=== PATIENT | male | born 1940 | race Caucasian/White ===

== ENCOUNTER → 2017-11-04 12:36 | Outpatient (CLI) | payer MEDICARE, SELFPAY ==
[2017-11-04 13:38] LABS: Absolute Lymphocyte Count 1.72 X10^3/ul (0.83-4.51); Absolute Neutrophil Count 4.4 X10^3/uL (2.0-7.7); Basophil# 0.04 X10^3/uL; Basophil% 0.6 % (0-1); Eosinophil# 0.22 X10^3/uL; Eosinophils% 3.1 % (0-5); Hematocrit 43.6 % (40-54); Hemoglobin 14.4 g/dl (13.0-16.5); Lymphocyte # 1.72 X10^3/ul (4.0); Mean Corpuscular Hgb 29.1 pg (27.0-32.0); Mean Corpuscular Volume 88.3 fL (80-94); Monocyte# 0.74 X10^3/uL; Monocyte% 10.3 % (0-10); Neutrophil # 4.43 X10^3/uL (2.7-7.7); Neutrophil % 61.9 % (47-70); Platelet Count 153 K/mm3 (150-450); RBC Distribution Width CV 13.6 % (11.6-14.6); Red Blood Count 4.94 M/mm3 (4.6-6.2); White Blood Count 7.2 K/mm3 (4.4-11.0)
[2017-11-04 13:39] LABS: POSITIVE COUNT NO; POSITIVE DIFFERENTIAL NO; POSITIVE MORPHOLOGY NO
[2017-11-04 13:41] LABS: Protein, Urine (Random) 12.9 mg/dL (<11.9); Protein:Creat Ratio 93 mg/g CRE (0-200)
[2017-11-04 14:02] LABS: Vitamin D,25 Hydroxy 49.5 ng/mL (29.95-100.01)
[2017-11-04 14:04] LABS: Albumin, Serum 4.1 g/dL (3.2-5.0); BUN 25 mg/dL (7-18); BUN/Creat Ratio 17.2 RATIO (10-20); Chloride 108 mmol/L (98-107); Creatinine, Serum 1.45 mg/dL (0.70-1.30); EST Glomerular Filtration Rate 50 mL/min (>60); Est Glom Filt Rate - Afr Amer 61 mL/min (>60); Glucose 88 mg/dL (74-106); Phosphorus 3.1 mg/dL (2.5-4.9); Potassium 4.2 mmol/L (3.5-5.1); Sodium Level 139 mmol/L (136-145)
[2017-11-04 14:09] LABS: PTHIN 69.2 pg/mL (18.4-80.1)
== END ==
PROVIDERS: Family Provider Family Medicine Geriatric Medicine; PCP Family Medicine Geriatric Medicine; Visit Provider Urology
DX: R97.20 Elevated prostate specific antigen [PSA] (principal); N25.81 Secondary hyperparathyroidism of renal origin; N18.3 Chronic kidney disease, stage 3 (moderate)
CPT/HCPCS: 36415; 80069; 82306; 82570; 83970; 84153; 84156; 85025

== ENCOUNTER → 2018-03-29 14:40 | Outpatient (CLI) | payer MEDICARE, SELFPAY ==
[2018-03-29 16:31] LABS: Absolute Lymphocyte Count 1.64 X10^3/ul (0.83-4.51); Basophil# 0.03 X10^3/uL; Basophil% 0.5 % (0-1); Eosinophil# 0.11 X10^3/uL; Eosinophils% 1.7 % (0-5); Hematocrit 45.9 % (40-54); Hemoglobin 14.3 g/dl (13.0-16.5); Lymphocyte # 1.64 X10^3/ul (4.0); Mean Corp Hgb Conc 31.2 g/gl (32-36); Mean Corpuscular Hgb 28.7 pg (27.0-32.0); Mean Corpuscular Volume 92.2 fL (80-94); Mean Platelet Vol. 11.9 fl (6.2-12.0); Monocyte# 0.49 X10^3/uL; Monocyte% 7.8 % (0-10); Neutrophil # 4.03 X10^3/uL (2.7-7.7); Platelet Count 165 K/mm3 (150-450); RBC Distribution Width SD 47.2 fl (35.1-43.9); Red Blood Count 4.98 M/mm3 (4.6-6.2); White Blood Count 6.3 K/mm3 (4.4-11.0)
[2018-03-29 17:00] LABS: ALB/GLOB Ratio 1.1 RATIO (0.9-2.4); AST(SGOT) 14 U/L (15-37); Alanine Aminotransfer ALT/SGPT 22 U/L (16-61); Albumin, Serum 3.8 g/dL (3.2-5.0); Alkaline Phosphatase 89 U/L (45-117); Anion Gap 9 (5-15); BUN 29 mg/dL (7-18); BUN/Creat Ratio 17.7 RATIO (10-20); Calcium,Total 8.8 mg/dL (8.5-10.1); Chloride 109 mmol/L (98-107); Cholesterol 223 mg/dL (200); Creatinine, Serum 1.64 mg/dL (0.70-1.30); EST Glomerular Filtration Rate 43 mL/min (>60); Est Glom Filt Rate - Afr Amer 52 mL/min (>60); Globulin 3.6 g/dL (2.2-4.2); Glucose 110 mg/dL (74-106); High Density Lipoprotein 46 mg/dL; Potassium 4.5 mmol/L (3.5-5.1); Protein, Total 7.4 g/dL (6.4-8.2); Sodium Level 145 mmol/L (136-145); Thyroid Stim Hormone (TSH) 3.11 uIU/mL (0.358-3.74); Triglycerides 129 mg/dL; Very Low Density Lipoprotein 26 mg/dL (5-40)
[2018-03-29 17:10] LABS: POSITIVE COUNT NO; POSITIVE DIFFERENTIAL NO; POSITIVE MORPHOLOGY NO
== END ==
PROVIDERS: Family Provider Family Medicine Geriatric Medicine; PCP Family Medicine Geriatric Medicine; Visit Provider Family Medicine Geriatric Medicine
DX: E55.9 Vitamin D deficiency, unspecified (principal); I10 Essential (primary) hypertension; E78.41 Elevated Lipoprotein(a)
CPT/HCPCS: 36415; 80053; 80061; 82306; 84443; 85025

== ENCOUNTER → 2018-03-31 09:39 | Outpatient (CLI) | payer MEDICARE, SELFPAY ==
--- NOTE | 2018-03-31 09:43 | US_ITS ---
PROCEDURES: ULTRASOUND AORTA REASON FOR EXAM: Male, 77 years old. Abdominal aortic aneurysm TECHNIQUE: Ultrasound evaluation of the aorta was performed with real-time and static ochoa-scale imaging. COMPARISON: None. FINDINGS: There is atherosclerotic plaque formation of the abdominal aorta. Aorta measures: Proximal 2.3 cm. Middle 2.4 cm. Distal 1.6 cm. Aorta measure transversely: Proximal 2.3 cm. Middle 2.5 cm. Distal 1.5 cm. Right iliac artery measures: 1.3 cm. Right iliac artery measure transversely: 1.0 cm. Left iliac artery measures: 1.0 cm. Left iliac artery measure transversely: 1.5 cm. Stable mild dilation of the distal portion of the abdominal aorta.. Incidentally noted are liver cysts. US/Aorta IMPRESSION: Stable interval exam Electronically Signed: Austin Roberson DO at 11:15 EDT Tel , Service support ,
== END ==
PROVIDERS: Family Provider Family Medicine Geriatric Medicine; PCP Family Medicine Geriatric Medicine; Referring Provider Family Medicine Geriatric Medicine; Visit Provider Family Medicine Geriatric Medicine
DX: I71.4 Abdominal aortic aneurysm, without rupture (principal)
CPT/HCPCS: 76775

== ENCOUNTER → 2018-10-14 11:20 | Outpatient (CLI) | payer MEDICARE, SELFPAY ==
[2018-10-14 11:50] LABS: Absolute Neutrophil Count 4.4 X10^3/uL (2.0-7.7); Basophil# 0.01 X10^3/uL; Basophil% 0.2 % (0-1); Eosinophil# 0.04 X10^3/uL; Eosinophils% 0.6 % (0-5); Hematocrit 42.7 % (40-54); Hemoglobin 14.3 g/dl (13.0-16.5); Lymphocyte % 24.1 % (19-41); Mean Corp Hgb Conc 33.5 g/gl (32-36); Mean Corpuscular Hgb 29.8 pg (27.0-32.0); Mean Platelet Vol. 11.2 fl (6.2-12.0); Monocyte# 0.57 X10^3/uL; Monocyte% 8.6 % (0-10); Neutrophil # 4.42 X10^3/uL (2.7-7.7); Neutrophil % 66.3 % (47-70); POSITIVE COUNT NO; POSITIVE DIFFERENTIAL NO; POSITIVE MORPHOLOGY NO; Platelet Count 153 K/mm3 (150-450); RBC Distribution Width CV 13.5 % (11.6-14.6); RBC Distribution Width SD 43.7 fl (35.1-43.9); White Blood Count 6.7 K/mm3 (4.4-11.0)
[2018-10-14 11:51] LABS: Protein, Urine (Random) 11.1 mg/dL (<11.9); Protein:Creat Ratio 87 mg/g CRE (0-200)
[2018-10-14 12:02] LABS: Albumin, Serum 4.1 g/dL (3.2-5.0); BUN 28 mg/dL (7-18); Calcium,Total 8.7 mg/dL (8.5-10.1); Chloride 107 mmol/L (98-107); Creatinine, Serum 1.47 mg/dL (0.70-1.30); EST Glomerular Filtration Rate 49 mL/min (>60); Est Glom Filt Rate - Afr Amer 59 mL/min (>60); Glucose 92 mg/dL (74-106); Phosphorus 3.4 mg/dL (2.5-4.9); Potassium 4.8 mmol/L (3.5-5.1); Sodium Level 141 mmol/L (136-145)
[2018-10-14 14:15] LABS: Vitamin D,25 Hydroxy 35.9 ng/mL (29.95-100.01)
[2018-10-14 14:19] LABS: PTHIN 81.4 pg/mL (18.4-80.1)
== END ==
PROVIDERS: Family Provider Family Medicine Geriatric Medicine; PCP Family Medicine Geriatric Medicine; Referring Provider Internal Medicine Nephrology; Visit Provider Internal Medicine Nephrology
DX: N18.3 Chronic kidney disease, stage 3 (moderate) (principal); N25.81 Secondary hyperparathyroidism of renal origin; E55.9 Vitamin D deficiency, unspecified
CPT/HCPCS: 36415; 80069; 82306; 82570; 83970; 84156; 85025

== ENCOUNTER → 2018-12-07 13:50 | Outpatient (CLI) | payer MEDICARE, SELFPAY | PROVIDERS: Family Provider Family Medicine Geriatric Medicine; PCP Family Medicine Geriatric Medicine; Referring Provider Urology; Visit Provider Urology | DX: R97.20 Elevated prostate specific antigen [PSA] (principal) | CPT/HCPCS: 36415; 84153 ==

== ENCOUNTER → 2019-03-30 09:02 | Outpatient (CLI) | payer MEDICARE, SELFPAY ==
[2019-03-30 12:42] LABS: Absolute Lymphocyte Count 1.69 X10^3/uL (0.83-4.51); Absolute Neutrophil Count 3.3 X10^3/uL (2.0-7.7); Basophil# 0.03 X10^3/uL; Basophil% 0.5 % (0-1); Eosinophil# 0.07 X10^3/uL; Eosinophils% 1.2 % (0-5); Hematocrit 44.8 % (40-54); Hemoglobin 14.1 g/dL (13.0-16.5); Lymphocyte # 1.69 X10^3/ul (4.0); Lymphocyte % 29.9 % (19-41); Mean Corp Hgb Conc 31.5 g/dL (32-36); Mean Corpuscular Hgb 29.1 pg (27.0-32.0); Mean Corpuscular Volume 92.4 fL (80-94); Mean Platelet Vol. 11.7 fl (6.2-12.0); Monocyte# 0.59 X10^3/uL; Monocyte% 10.4 % (0-10); NRBC Flagged by Analyzer 0 % (0-5); Neutrophil # 3.25 X10^3/uL (2.7-7.7); Neutrophil % 57.6 % (47-70); Platelet Count 154 K/mm3 (150-450); RBC Distribution Width CV 13.5 % (11.6-14.6); RBC Distribution Width SD 46.1 fl (35.1-43.9); Red Blood Count 4.85 M/mm3 (4.6-6.2); White Blood Count 5.7 K/mm3 (4.4-11.0)
[2019-03-30 13:05] LABS: Vitamin D,25 Hydroxy 35.3 ng/mL (29.95-100.01)
[2019-03-30 13:13] LABS: ALB/GLOB Ratio 1.2 RATIO (0.9-2.4); AST(SGOT) 14 U/L (15-37); Alanine Aminotransfer ALT/SGPT 24 U/L (16-61); Alkaline Phosphatase 92 U/L (45-117); Anion Gap 8 (5-15); BUN 25 mg/dL (7-18); Calcium,Total 8.7 mg/dL (8.5-10.1); Chloride 108 mmol/L (98-107); Cholesterol 215 mg/dL (200); Creatinine, Serum 1.39 mg/dL (0.70-1.30); EST Glomerular Filtration Rate 52 mL/min (>60); Est Glom Filt Rate - Afr Amer 63 mL/min (>60); Globulin 3.3 g/dL (2.2-4.2); Glucose 95 mg/dL (74-106); High Density Lipoprotein 46 mg/dL; Potassium 4.4 mmol/L (3.5-5.1); Protein, Total 7.3 g/dL (6.4-8.2); Sodium Level 143 mmol/L (136-145); Thyroid Stim Hormone (TSH) 3.29 uIU/mL (0.358-3.74); Triglycerides 154 mg/dL; Very Low Density Lipoprotein 31 mg/dL (5-40)
== END ==
PROVIDERS: Family Provider Family Medicine Geriatric Medicine; PCP Family Medicine Geriatric Medicine; Visit Provider Family Medicine Geriatric Medicine
DX: E78.5 Hyperlipidemia, unspecified (principal); E55.9 Vitamin D deficiency, unspecified; I10 Essential (primary) hypertension
CPT/HCPCS: 36415; 80053; 80061; 82306; 84443; 85025

== ENCOUNTER → 2019-04-11 09:18 | Outpatient (CLI) | payer MEDICARE, SELFPAY ==
--- NOTE | 2019-04-11 09:20 | US_ITS ---
PROCEDURES: ULTRASOUND AORTA REASON FOR EXAM: Male, 78 years old. AAA TECHNIQUE: Ultrasound evaluation of the aorta was performed with real-time and static ochoa-scale imaging. COMPARISON: March 31, 2018. FINDINGS: There is no elongation or tortuosity of the abdominal aorta. Aorta measures: Proximal 2.2 cm. Middle 2.1 cm. Distal 1.5 cm. Aorta measure transversely: Proximal 2.3 cm. Middle 2.4 cm. Distal 1.9 cm. Right iliac artery measures: 1.1 cm. Right iliac artery measure transversely: 1.1 cm. Left iliac artery measures: 1.1 cm. Left iliac artery measure transversely: 1.1 cm. There is mild infrarenal focal aneurysm measuring 2.5 cm in maximum diameter, relatively stable since the previous study. Hepatic cysts up to 13 cm. US/Aorta IMPRESSION: Mild infrarenal aneurysm of the abdominal aorta. Hepatic cysts. Electronically Signed: Nikhil Cerda DO at 21:43 EDT Tel [phone], Service support ,
== END ==
PROVIDERS: Family Provider Family Medicine Geriatric Medicine; PCP Family Medicine Geriatric Medicine; Referring Provider Family Medicine Geriatric Medicine; Visit Provider Family Medicine Geriatric Medicine
DX: I71.4 Abdominal aortic aneurysm, without rupture (principal)
CPT/HCPCS: 76775

== ENCOUNTER → 2019-12-05 08:52 | Outpatient (CLI) | payer MEDICARE, SELFPAY ==
[2019-12-05 10:15] LABS: Absolute Lymphocyte Count 1.98 X10^3/uL (0.83-4.51); Absolute Neutrophil Count 3.9 X10^3/uL (2.0-7.7); Basophil# 0.04 X10^3/uL; Basophil% 0.6 % (0-1); Eosinophil# 0.07 X10^3/uL; Eosinophils% 1.1 % (0-5); Hematocrit 45.2 % (40-54); Hemoglobin 14.4 g/dL (13.0-16.5); Lymphocyte # 1.98 X10^3/ul (4.0); Lymphocyte % 29.9 % (19-41); Mean Corp Hgb Conc 31.9 g/dL (32-36); Mean Corpuscular Hgb 29.6 pg (27.0-32.0); Mean Platelet Vol. 11.7 fl (6.2-12.0); Monocyte# 0.61 X10^3/uL; Monocyte% 9.2 % (0-10); NRBC Flagged by Analyzer 0 % (0-5); Neutrophil # 3.91 X10^3/uL (2.7-7.7); Platelet Count 158 K/mm3 (150-450); RBC Distribution Width CV 13.4 % (11.6-14.6); RBC Distribution Width SD 45.4 fl (35.1-43.9); Red Blood Count 4.86 M/mm3 (4.6-6.2); White Blood Count 6.6 K/mm3 (4.4-11.0)
[2019-12-05 10:31] LABS: Protein, Urine (Random) 15.1 mg/dL (<11.9); Protein:Creat Ratio 81 mg/g CRE (0-200)
[2019-12-05 10:55] LABS: Albumin, Serum 3.9 g/dL (3.2-5.0); BUN 31 mg/dL (7-18); BUN/Creat Ratio 22.1 RATIO (10-20); Chloride 112 mmol/L (98-107); EST Glomerular Filtration Rate 52 mL/min (>60); Est Glom Filt Rate - Afr Amer 63 mL/min (>60); Glucose 102 mg/dL (74-106); Phosphorus 3.1 mg/dL (2.5-4.9); Potassium 4.2 mmol/L (3.5-5.1); Sodium Level 143 mmol/L (136-145)
[2019-12-05 13:09] LABS: PTHIN 53.4 pg/mL (18.4-80.1)
[2019-12-05 13:10] LABS: Vitamin D,25 Hydroxy 48.3 ng/mL
== END ==
PROVIDERS: PCP Family Medicine Geriatric Medicine; Referring Provider Urology; Visit Provider Urology
DX: N18.3 Chronic kidney disease, stage 3 (moderate) (principal); N25.81 Secondary hyperparathyroidism of renal origin; E55.9 Vitamin D deficiency, unspecified; Z13.0 Encounter for screening for diseases of the blood and blood-forming organs and certain disorders involving the immune mechanism; R97.20 Elevated prostate specific antigen [PSA]
CPT/HCPCS: 36415; 80069; 82306; 82570; 83970; 84153; 84156; 85025

== ENCOUNTER → 2019-12-29 14:47 | Outpatient (CLI) | payer MEDICARE, SELFPAY ==
--- NOTE | 2019-12-29 14:50 | VDLE_ITS ---
Reason For Study: edema Procedure LEFT Exam performed in department. GSV is normal. The exam was diagnostic. CFV is compressible, spontaneous, phasic, A preliminary report was called and/or faxed competent, and demonstrates normal to Dr. Sim. augmentation. FV is compressible, spontaneous, phasic, competent and demonstrates normal augmentation. POP V is compressible, spontaneous, phasic, competent and demonstrates normal augmentation. T/P Trunk is compressible. PTV is compressible. LT PerV is compressible. Hypoechoic area behind the knee measuring .69 x 2.64 x 3.89 cm. Area is nonvascular. Interpretation Summary Deep veins of the left lower extremity are patent and compressible segmentally. There is no evidence of left lower extremity deep vein thrombosis. Valvular competence appears intact within the proximal deep venous system on the left . The left great saphenous vein appears patent and compressible segmentally. A non-vascular, hypoechoic structure is noted in the left popliteal space, measuring 0.69 cm x 2.64 cm x 3.89 cm. This probably represents a popliteal cyst. Clinical correlation is advised. Ordering Physician: Ruben Sim Performed By: Julian Del Real RVT and Student
--- NOTE | 2019-12-29 15:20 | RAD_ITS ---
STUDY: X-RAY CHEST REASON FOR EXAM: Male, 79 years old. chest pain for a couple months. sob upon exertion. no htn and no hx of smoking. TECHNIQUE: PA and lateral views of the chest. COMPARISON: March 26, 2017 FINDINGS: The lungs are clear and expanded. There is no demonstrated pleural abnormality. Normal size heart. Stable visualized mediastinal and osseous structures. Several healed left-sided rib fractures reidentified. Surgical clips seen in the left axilla. RAD/Chest PA and Lateral IMPRESSION: No visualized acute process Electronically Signed: Bebo Solorzano MD at 16:28 EDT , Service support ,
[2019-12-29 15:53] LABS: Absolute Lymphocyte Count 2.24 X10^3/uL (0.83-4.51); Absolute Neutrophil Count 4.5 X10^3/uL (2.0-7.7); Basophil# 0.04 X10^3/uL; Basophil% 0.5 % (0-1); Eosinophil# 0.03 X10^3/uL; Eosinophils% 0.4 % (0-5); Hematocrit 42.6 % (40-54); Hemoglobin 13.8 g/dL (13.0-16.5); Lymphocyte # 2.24 X10^3/ul (4.0); Mean Corp Hgb Conc 32.4 g/dL (32-36); Mean Corpuscular Hgb 29.3 pg (27.0-32.0); Mean Corpuscular Volume 90.4 fL (80-94); Mean Platelet Vol. 11.6 fl (6.2-12.0); Monocyte# 0.66 X10^3/uL; Monocyte% 8.8 % (0-10); NRBC Flagged by Analyzer 0 % (0-5); Neutrophil # 4.48 X10^3/uL (2.7-7.7); Platelet Count 146 K/mm3 (150-450); RBC Distribution Width CV 13.2 % (11.6-14.6); RBC Distribution Width SD 43.8 fl (35.1-43.9); Red Blood Count 4.71 M/mm3 (4.6-6.2); White Blood Count 7.5 K/mm3 (4.4-11.0)
[2019-12-29 16:12] LABS: BNP,B-Type NATRIURETIC PEPTIDE 31.9 pg/mL (0-100)
[2019-12-29 16:17] LABS: Anion Gap 6 (5-15); BUN 32 mg/dL (7-18); BUN/Creat Ratio 23.9 RATIO (10-20); CPK Total, Creatine Kinase 79 U/L (39-308); Calcium,Total 8.5 mg/dL (8.5-10.1); Chloride 110 mmol/L (98-107); Creatinine, Serum 1.34 mg/dL (0.70-1.30); EST Glomerular Filtration Rate 54 mL/min (>60); Est Glom Filt Rate - Afr Amer 66 mL/min (>60); Glucose 95 mg/dL (74-106); Potassium 4.1 mmol/L (3.5-5.1); Sodium Level 141 mmol/L (136-145)
[2019-12-29 17:19] LABS: D-Dimer Quantitative (DVT/PE) 0.62 FEU/ug/m (0.27-0.49)
[2019-12-31 12:02] LABS: Myoglobin, Serum 60 ng/mL (28-72)
== END ==
PROVIDERS: PCP Family Medicine Geriatric Medicine; Referring Provider Family Medicine Geriatric Medicine; Visit Provider Family Medicine Geriatric Medicine
DX: R60.9 Edema, unspecified (principal); R07.9 Chest pain, unspecified; R06.89 Other abnormalities of breathing; R06.09 Other forms of dyspnea
CPT/HCPCS: 36415; 71046; 80048; 82550; 83874; 83880; 84484; 85025; 85379; 93971

== ENCOUNTER → 2020-01-16 12:31 | Outpatient (CLI) | payer MEDICARE, SELFPAY ==
--- NOTE | 2020-01-16 15:19 | PFTCOMP ---
COMPLETE PULMONARY FUNCTION TEST INTERPRETATION Brief HPI: Patient is an 79 year old male, currently under the care of Dr. Sim, who presents to [facility] for complete pulmonary function tests secondary to diagnosis of dyspnea. Respiratory therapist reports good effort and reproducible results. Interpretation: Forced expiration spirometry shows no large airways obstructive ventilatory defect with an FEV1 of 91% predicted. There is no significant bronchodilator response by strict ATS criteria. Spirograms are of good quality and plateau normally. The respiratory flow volume loop shows a normal pattern. Lung volumes by body plethysmography show a normal total lung capacity at 6.02 L, 95% predicted. All other lung volumes are within normal limits. Diffusion capacity by carbon monoxide is normal at 104% predicted. The airway resistance is normal. No previous pulmonary function tests were available for review. Impression: These pulmonary function tests are within normal limits.
== END ==
PROVIDERS: PCP Family Medicine Geriatric Medicine; Referring Provider Family Medicine Geriatric Medicine; Visit Provider Family Medicine Geriatric Medicine
DX: R06.02 Shortness of breath (principal)
CPT/HCPCS: 94060; 94726; 94729

== ENCOUNTER → 2020-03-07 06:26 | Outpatient (CLI) | payer MEDICARE, SELFPAY ==
[2020-02-16 15:11] VITALS: BMI 26.6
--- NOTE | 2020-03-07 06:26 | ECHOD_ITS ---
Reason For Study: Dyspnea/SOB Procedure This was a 2D Doppler, Color Flow transthoracic echocardiogram. The exam was of adequate technical quality. Exam performed in department. Left Ventricle Normal LV size. Left ventricular systolic function is normal. The estimated ejection fraction is 65 %. Diastolic function is indeterminate. No regional wall motion abnormalities noted. Right Ventricle Normal RV size. Normal systolic function. Atria The left atrium is mildly enlarged. Normal right atrium. No doppler evidence for ASD. Mitral Valve There is no mitral annular calcification. Mild (1+) mitral valve insufficiency. Tricuspid Valve Normal tricuspid valve. Trivial tricuspid valve insufficiency. Aortic Valve Trisinus/trileaflet aortic valve. Mild focal aortic valve calcification. Pulmonic Valve The pulmonic valve is not well visualized. Trivial pulmonic valve insufficiency. Great Vessels Normal sized aortic root. Pericardium/Pleural No pericardial effusion. MMode/2D Measurements & Calculations LVIDd: 4.6 cm IVSd: 1.2 cm Ao root diam: 3.2 cm LVIDs: 2.1 cm LVPWd: 1.5 cm LA dimension: 4.4 cm RVDd: 3.0 cm FS: 55.4 % LAV(MOD-bp): 55.6 ml LA A4 area: 19.9 cm2 RA A4 area: 13.2 cm2 LAV(MOD-bp) Indexed: 27.5 ml/m2 LAV(MOD-sp2): 46.9 ml LAV(MOD-sp4): 54.7 ml Time Measurements MV dec time: 0.30 sec Doppler Measurements & Calculations MV E max andrés: 75.5 cm/sec Lat Peak E' Andrés: 8.3 cm/sec Med Peak E' Andrés: 6.8 cm/sec MV A max andrés: 96.5 cm/sec E/E' lat: 9.1 E/E' med: 11.1 MV E/A: 0.78 MV V2 max: 110.7 cm/sec MV P1/2t max andrés: 88.6 cm/sec Ao V2 max: 150.4 cm/sec MV max P.9 mmHg MV P1/2t: 124.8 msec Ao max P.1 mmHg MV V2 mean: 51.7 cm/sec MV dec slope: 208.0 cm/sec2 MV mean P.3 mmHg MVA(P1/2t): 1.8 cm2 MV V2 VTI: 33.7 cm LV V1 max: 118.6 cm/sec MR max andrés: 643.7 cm/sec PA V2 max: 115.6 cm/sec LV V1 max P.6 mmHg MR max P.7 mmHg MR mean andrés: 470.9 cm/sec MR mean P.9 mmHg MR VTI: 233.9 cm Interpretation Summary Left ventricular systolic function is normal. The estimated ejection fraction is 65 %. The left atrium is mildly enlarged. Mild (1+) mitral valve insufficiency. Trivial tricuspid valve insufficiency. Mild focal aortic valve calcification. Trivial pulmonic valve insufficiency. Diastolic function is indeterminate. Comment: 2D echocardiographic images demonstrate echo lucencies compatible with hepatic cysts. Consider further radiologic evaluation as clinically indicated. Ordering Physician: Bhanu Maher Referring Physician: Ruben Sim Chi Performed By: Eduardo Saeed RCS
--- NOTE | 2020-03-07 09:05 | STRESSREP ---
Stress Test Report Date: 03-07-2020 Procedure: Exercise tolerance test/imaging study Indications: As of breath/dyspnea on exertion Consent: Per the patient Procedure: The patient exercised on a Panfilo protocol for 2 minutes and 11 seconds not completing Stage I achieving a peak heart rate of 114 bpm (81% predicted maximal heart rate) with a peak blood pressure 190/80 mmHg and a peak MET capacity of 4 METs. The baseline ECG demonstrated sinus bradycardia. The peak exercise ECG demonstrated somatic/motion artifact with no obvious ECG changes at the heart rate achieved. There were no cardiac dysrhythmias pretest, during exercise, or recovery. The functional capacity was considered there was a rare PAC during recovery. There was no complaint of chest discomfort during exercise or recovery. The examination was discontinued secondary to dyspnea. Impression: 1. Technically inadequate (percent predicted maximal heart rate less than 85%) exercise tolerance test 2. Peak exercise ECG with somatic/motion artifact with no obvious ECG changes at the heart rate achieved 3. There was a rare PAC during recovery 4. Nuclear images pending Myocardial perfusion imaging study: Technique: The patient was injected with 11.8 mCi of technetium 99m Cardiolite and subsequently rest SPECT Cardiolite nuclear imaging was obtained in the horizontal long, vertical long, and short axis views. The patient exercised on a Panfilo protocol for 2 minutes and 11 seconds not completing Stage I achieving a peak heart rate of 114 bpm (81% predicted maximal heart rate) with a peak blood pressure 190/80 mmHg and a peak MET capacity of 4 METs. The patient was injected with 33.3 mCi of technetium 99m Cardiolite and subsequently stress SPECT Cardiolite nuclear imaging was obtained in the horizontal long, vertical long, and short axis views. A gated Cardiolite study at peak stress was obtained. Interpretation: Rest and stress SPECT Cardiolite nuclear imaging status post realignment, normalization, and attenuation correction, demonstrates the appearance of relative uniform tracer uptake at rest and status post stress the appearance of diminished tracer uptake in portions of the distal anterior and apical segments. There is end systolic thickening and brightening. The gated Cardiolite study demonstrates myocardial thickening and inward wall motion. The reported LVEF is 63 %. Impression: 1. Rest and stress SPECT Cardiolite nuclear imaging demonstrate myocardial perfusion changes concerning for an area of stress-induced myocardial ischemia in portions of the distal anterior and apical segments. 2. The gated Cardiolite study reports an LVEF of 63 %. Comment: [facility] nuclear fuel enrichment technician's indicate on the patient's image acquisition/analysis that there appears to be a space occupying lesion/mass lesion in the hepatic area. Thus, would consider further evaluation and care with additional radiologic studies as deemed appropriate. This note was generated with everbill dictation software. It may contain incorrect words, spelling, and punctuation that were not noted in checking the note before signing.
== END ==
PROVIDERS: PCP Family Medicine Geriatric Medicine; Referring Provider Internal Medicine Cardiovascular Disease; Visit Provider Internal Medicine Cardiovascular Disease
DX: R06.00 Dyspnea, unspecified (principal); I20.9 Angina pectoris, unspecified; R60.9 Edema, unspecified; I71.4 Abdominal aortic aneurysm, without rupture; E78.2 Mixed hyperlipidemia; I12.9 Hypertensive chronic kidney disease with stage 1 through stage 4 chronic kidney disease, or unspecified chronic kidney disease; N18.3 Chronic kidney disease, stage 3 (moderate)
CPT/HCPCS: 78452; 93017; 93306; A9500; A4216

== ENCOUNTER → 2020-03-13 10:15 | Outpatient (CLI) | payer MEDICARE, SELFPAY ==
[2020-02-16 15:11] VITALS: BMI 26.6
--- NOTE | 2020-03-13 10:15 | US_ITS ---
STUDY: ABDOMINAL ULTRASOUND - RIGHT UPPER QUADRANT REASON FOR VISIT: Male, 79 years old HEPATIC CYSTS TECHNIQUE: Ultrasound evaluation of the right upper quadrant was performed with real-time and static ochoa-scale imaging. TECHNICAL QUALITY: Adequate. COMPARISON: None. FINDINGS: Liver: The liver is enlarged and measures 19 cm. There is normal echogenicity of the liver. The bile ducts are within normal limits. There is hepatic color flow. The direction of portal flow is hepatopetal. Multiple hepatic cysts. The largest cyst in the right lobe of the liver measures 12.3 cm x 11.4 cm x 10 cm. The largest cyst in the left lobe of the liver measures 8.6 times by 8 cm x 8.1 cm. Gallbladder: Normal distended gallbladder. The gallbladder wall measures 2.2 mm. There is a negative sonographic Shankar''s sign. There is no pericholecystic fluid. There are no gallstones. There is a 3 mm gallbladder polyp. Common Bile Duct (C.B.D.): The common bile duct measures 3.0 mm. Pancreas: Normal size of the head, body and tail of the pancreas. There is normal echogenicity of the pancreas. There is no demonstrated pancreatic mass or cyst. Right Kidney: There is atrophy of the right kidney. The right kidney measures 7.3 cm x 2.6 cm x 3.2 cm. There is thinning of the renal cortex. The right cortex measures 0.8 cm. There is a 1 cm x 1.2 cm x 1 cm cyst. There is no right hydronephrosis. US/Liver IMPRESSION: Mild hepatomegaly. Multiple hepatic cysts. 3 mm gallbladder polyp. Atrophy of the right kidney with a small cyst. Electronically Signed: Gatito Funez, at 15:02 EDT , Service support ,
== END ==
PROVIDERS: PCP Family Medicine Geriatric Medicine; Referring Provider Internal Medicine Cardiovascular Disease; Visit Provider Internal Medicine Cardiovascular Disease
DX: K76.89 Other specified diseases of liver (principal)
CPT/HCPCS: 76705

== ENCOUNTER 2020-03-21 06:18 | Day surgery (SDC) | payer MEDICARE, SELFPAY ==
[2020-02-16 15:11] VITALS: BMI 26.6
[2020-03-14 10:30] VITALS: BMI 26.6
[2020-03-14 11:10] LABS: Hemoglobin 14.1 g/dL (13.0-16.5); Mean Corp Hgb Conc 31.3 g/dL (32-36); Mean Corpuscular Volume 92.6 fL (80-94); Platelet Count 152 K/mm3 (150-450); RBC Distribution Width CV 13.6 % (11.6-14.6); RBC Distribution Width SD 46.4 fl (35.1-43.9); Red Blood Count 4.86 M/mm3 (4.6-6.2); White Blood Count 6.5 K/mm3 (4.4-11.0)
[2020-03-14 11:23] LABS: International Normalized Ratio 1.1; Prothrombin Time (Protime)PT. 13.8 SECONDS (11.7-14.9)
[2020-03-14 11:24] LABS: Partial Thromboplast Time 32.6 Seconds (24.1-36.2)
[2020-03-14 11:39] LABS: Anion Gap 3 (5-15); BUN 25 mg/dL (7-18); Calcium,Total 8.9 mg/dL (8.5-10.1); Chloride 109 mmol/L (98-107); Creatinine, Serum 1.47 mg/dL (0.70-1.30); EST Glomerular Filtration Rate 49 mL/min (>60); Est Glom Filt Rate - Afr Amer 59 mL/min (>60); Glucose 102 mg/dL (74-106); Potassium 4.3 mmol/L (3.5-5.1); Sodium Level 142 mmol/L (136-145)
[2020-03-20 13:34] VITALS: BMI 26.5
--- NOTE | 2020-03-20 17:21 | HP.PCM_ITS ---
<Mary Thao - Last Filed: 03/20/20 17:21> History and Physical Date of Admission: 03/21/20 History of Present Illness This is an 79-year-old gentleman that recently established with us for exertional chest discomfort that had symptoms concerning for angina in addition to shortness of breath with exertion. He does have a history of hypertension, hyperlipidemia and mild infrarenal abdominal aortic aneurysm that is being managed by his primary care doctor. With chest discomfort he points to the center of his chest. He states it just hurts . He notes he can stop and rest and feel better. This does appear compatible with a stable angina pectoris although not definitive. He does get short of breath and dyspneic with activity. He has attributed this to his age. However he is somewhat concerned about this as it is different for him. He has had no orthopnea or PND. He states he does have some occasional lower extremity edema. There is been no near syncope or syncope. He did undergo a nuclear stress test which demonstrated an area of stress- induced myocardial ischemia in portions of the distal anterior and apical segments. Because of this he will be undergoing a diagnostic heart catheterization today. Intake Intake Visit Reasons: Amb Documentation Allergies No Known Allergies Allergy (Unverified 02/16/20 15:11) [facility] Medical History Dyspnea on exertion (Acute) Chest pain (Acute) Abnormal stress test (Acute) Hepatic cyst (Acute) GERD (gastroesophageal reflux disease) (Chronic) Mixed hyperlipidemia (Chronic) Essential hypertension (Chronic) CKD (chronic kidney disease) stage 3, GFR 30-59 ml/min (Chronic) Surgical History H/O repair of right rotator cuff (Resolved) History of hernia repair (Resolved) Social History Smoking Status: Never smoker alcohol intake: current details: occasional substance use type: does not use caffeine: Yes Type: coffee Number of servings: 1 ROS Const Const: Positive for fatigue (increased); negative for weakness, frequent falls, excessive sweating, weight gain or weight loss Eyes Eyes: Negative for transient loss of vision, blurry vision or change in vision ENT ENT: Negative for dizziness or balance problems Cardio Chest Pain: Yes (occasional) Character: dull, other (pressure) Onset: exercise Location: mid sternal Duration: minutes Relieving: rest Palpitations: No Edema: Left (LE, pedal slight) Muscle aches with walking: None Resp Respiratory: Positive for SOB with activity (slightlyt increased); negative for SOB at rest GI GI: Negative vomiting or vomiting blood/hematemesis : Negative for hematuria Musc Musc: Negative for balance problems Skin Skin: Negative non-healing lesions or rash Neuro Neuro: Negative for dizziness, frequent falls, weakness or blurry vision Lloyd Hematologic/Lymphatic: Negative for easy bleeding Endo Endo: Positive for fatigue (increased); negative for excessive sweating Psych Psych: Negative for anxiety or depression Allergy Allergy/Immunology: Negative for rash Cardiology Exam Const Appearance: cooperative, healthy appearing, comfortable, no acute distress, well developed and well groomed Nutritional Appearance: overweight Orientation: alert, awake and oriented x3 Head Head: normal to inspection, normocephalic and atraumatic Ears: hearing grossly normal bilaterally Nose: external nose normal Face and Sinus: face symmetric Eyes Eyelids: eyelids normal Conjunctivae: conjunctivae normal Pupils: PERRL EOM: EOM intact bilaterally Neck Neck: normal visual inspection and full ROM Carotids: normal carotid upstroke Chest Chest inspection: normal inspection of the chest, symmetric chest movement and normal respiratory effort Auscultation: Bilateral: Clear to Auscultation Cardio Palpation: normal PMI Rate: regular rate Rhythm: regular rhythm Heart sounds: S1 normal and S2 normal GI GI: normal to inspection, soft and bowel sounds present Neuro General: alert, awake, oriented x3 and moves all extremities Skin Skin: no rashes or lesions noted Extremities Pulses: Normal: Right Radial Pulse, Left Radial Pulse Lower Extremity Edema: None: Bilateral Psych Psychological: normal affect Assessment & Plan Problems 1. Chest pain R07.9 2. Essential hypertension I10 3. Mixed hyperlipidemia E78.2 4. Abnormal stress test R94.39 5. Dyspnea on exertion R06.00 Plan - Mary MONTES, [place] Patient will undergo a diagnostic heart catheterization today. Follow-up will be based upon heart catheterization results. COVID (Procedure Consent) Procedure Criteria Procedure Criteria: Yes Elective The surgeon/proceduralist and patient have discussed in detail the risk of exposure to and/or potential harm posed by the COVID-19 virus with having a surgery/procedure at this time versus the risk of delaying the surgery/procedure. It is not possible to know either the risk of delaying the surgery or procedure or chance of getting an infection with perfect accuracy, but a joint decision was made between the patient and the surgeon/proceduralist to proceed at this time with the scheduled surgery/procedure as indicated on the consent form. <Bhanu Maher - Last Filed: 03/21/20 07:07> Problem List (1) Abnormal stress test Status: Acute (2) Chest pain Status: Acute (3) Dyspnea on exertion Status: Acute (4) Mixed hyperlipidemia Status: Chronic (5) Essential hypertension Status: Chronic History and Physical I have re-examined the patient. There are no clinical changes since date of exam.
--- NOTE | 2020-03-21 08:52 | CASEMGMT ---
According to the [facility] website, the following are in-network tertiary facilities: [facility], [place], [place], [facility], [facility], [facility], and . Amy LATHAM CM
--- NOTE | 2020-03-21 09:32 | CL.D_ITS ---
Patient Name: KAREN KEARNS Study Date: 03/21/2020 Performing: Bhanu Maher MD Ht: 70.07 inches 178 cm : 1940 Wt: 185.19 lbs 84 kg Age: 79 Gender: male BSA: 2.02 PROCEDURE(S) PERFORMED [id number] CLINICAL PROFILE AND INDICATIONS Indications: Suspected CAD Heart Failure: None Stress/Imaging Date: 03/07/2020Stress Test with SPECT MPI: Positive Angina Classification Anginal Classification w/in 2 Weeks: Anginal Equivalent Dyspnea CAD Presentations: Other: dyspnea on exertion CONCLUSIONS [place] Multivessel CAD RECOMMENDATIONS Risk factor modification Medical therapy Surgery consult for coronary revascularization Case discussed / reviewed and patient accepted in transfer by Fabio Miller MD of CT Surgery at [facility] DESCRIPTION OF PROCEDURE The patient arrived to the procedure lab. The risks and benefits of the procedure as well as a full d escription of our services here and current unavailability of surgical backup were fully explained to the patient and/or their significant other prior to the catheterization. The Timeout was completed, verifying the correct patient and procedure. The patient's procedural site was prepped and draped in the usual fashion. Local anesthetic was given subcutaneously to right radial region with Lidocaine 2% . Using a modified Seldinger technique, arterial access was obtained via the right radial artery, a 6 Fr sheath was inserted. Right Coronary Artery selective angiography was then performed in multiple v iews using a 5 Fr. 4.0 Grayson catheter. Left Coronary Artery selective angiography was performed in mu ltiple views using a 5 Fr. 4.0 Grayson catheter.The arterial sheath was pulled and a TR Band was applie d for hemostasis. 12cc of air CORONARY ANGIOGRAPHY DOMINANCE: Right Dominant LEFT HEART ASSESSMENT Left Ventricular Ejection Fraction: Not assessed LEFT MAIN: Mild calcification, No significant disease noted LEFT ANTERIOR DESCENDING ARTERY: PROX LAD: diffuse: eccentric: 75 % Stenosis, 95 % Stenosis MID LAD: s/p DX: diffuse: eccentric: 85 % Stenosis, 95 % Stenosis DIAGONAL 1: Ostial - 50 % Stenosis CIRCUMFLEX ARTERY: Mild luminal irregularities PROX CIRC: Mild calcification RIGHT CORONARY ARTERY: PROX RCA: Severe calcification, 95 % Stenosis MID RCA: is occluded DISTAL RCA: fills from left to right collateral flow COMPLICATIONS No Complications PROCEDURE MEDICATIONS Fentanyl 50 mcg IV Versed 1 mg IV Oxygen: 2 L/min via nasal cannula Heparin diluted in 23cc Heparinized saline. Patient given 10cc IA of this solution. 03/21/2020 08:25: 30 Verapamil 2.5mg, Ntg 100mcgs, 2000 units of Heparin diluted in 23cc Heparinized saline. Patient give n 10cc IA of this solution. 03/21/2020 08:25:30 SUMMARY OF HEMODYNAMIC DATA Time AIR REST ECG 06:58:38 AO 108/65 (83) SA 08:28:26 ECG 09:01:08 Signed By Bhanu Maher MD On 03/21/2020 9:31:42 AM Bhanu Maher MD
[2020-03-21 14:48] VITALS: BP 141/86; PULSE 60; RESP 16; TEMP 36.8; O2SAT 96
[2020-03-21 15:46] VITALS: PULSE 59
[2020-03-21] MEDS: 0.9% Normal Saline 1,000 ML 75 ML IV (16:06)
== END 2020-03-21 18:53 | disposition short-term general hospital (02) ==
LOC: CLSP 06:19 → PCU 03-23 06:25
PROVIDERS: PCP Family Medicine Geriatric Medicine; Referring Provider Internal Medicine Cardiovascular Disease; Visit Provider Internal Medicine Cardiovascular Disease
DX: I25.10 Atherosclerotic heart disease of native coronary artery without angina pectoris (principal); E78.5 Hyperlipidemia, unspecified; K21.9 Gastro-esophageal reflux disease without esophagitis; E78.2 Mixed hyperlipidemia; I12.9 Hypertensive chronic kidney disease with stage 1 through stage 4 chronic kidney disease, or unspecified chronic kidney disease; N18.30 Chronic kidney disease, stage 3 unspecified; I71.4 Abdominal aortic aneurysm, without rupture; Z79.82 Long term (current) use of aspirin; Z79.899 Other long term (current) drug therapy; R07.89 Other chest pain
CPT/HCPCS: 36415; 80048; 85027; 85610; 85730; 93454; 99152; 99153; J7030; J7040; C1769; C1894; Q9967

== ENCOUNTER → 2020-04-19 11:31 | Outpatient (CLI) | payer MEDICARE, SELFPAY ==
[2020-03-20 13:34] VITALS: BMI 26.5
--- NOTE | 2020-04-19 11:34 | RAD_ITS ---
STUDY: X-RAY CHEST REASON FOR EXAM: Male, 79 years old. Fluid on lungs, CAD TECHNIQUE: PA and lateral views of the chest. COMPARISON: Comparison is made with prior study dated 12/29/2019. FINDINGS: Small bilateral pleural effusions with bibasilar atelectasis more prominent on the right side. Sternal cerclage wires and vascular clips are present from a prior sternotomy and coronary artery bypass graft procedure (CABG). Normal mediastinum and jovan. Normal visualized pulmonary arteries. There is atherosclerotic calcification of the aortic arch with tortuosity. There are diffuse degenerative changes of the visualized thoracic spine. Healed left rib fractures. Prior rotator cuff surgery of the right shoulder. There is no demonstrated abnormality of the visualized soft tissue structures of the upper abdomen. RAD/Chest PA and Lateral IMPRESSION: Small bilateral pleural effusions slightly more prominent on the right side with mild increased markings at the lung bases. Electronically Signed: Gatito Funez, at 12:40 EST , Service support ,
== END ==
PROVIDERS: PCP Family Medicine Geriatric Medicine
DX: I25.119 Atherosclerotic heart disease of native coronary artery with unspecified angina pectoris (principal); I10 Essential (primary) hypertension
CPT/HCPCS: 71046

== ENCOUNTER → 2020-05-03 11:51 | Outpatient (CLI) | payer MEDICARE, SELFPAY ==
[2020-04-25 11:36] VITALS: BMI 25.1
--- NOTE | 2020-05-03 11:55 | CR.ITP_ITS ---
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 Personal Learning Style:: Audio/Visual, Written Barriers to Learning: Hearing Impairment, Vision Impairment Stage of change r/t lifestyle modifications:: Action Gave educational material for:: Treating Heart Disease, Emotions & Heart Disease, Stress Management & Relaxation, Sleep Disorders & Heart Disease, How The Heart Works, What it means to have Heart Disease, How Coronary Artery Disease is Diagnosed, Heart Procedures, What Heart Medications Do, Risk Factors & Modifications, Living an Active Life, Nutrition - Education/Goals Individual Counseling: Initial Assessment: Abnormal Cholesterol Levels, High Blood Pressure, Sedentary Lifestyle Cardiac Rehabilitation Goals: 1. Maintain the individual as the primary focus of care. 2. To improve the patient's quality of life. 3. Identification of cardiac risk factors and provide cardiac risk factor management. 4. Enhance the psychosocial status of the patient. 5. Reconditioning enough to allow the patient to resume customary activities. 6. Control symptoms of cardiac disease Personal Goals: Initial Assessment: Improve energy level, Get back to work, or to resume activities faster, Improve muscle strength and endurance Scale for measuring improvement of personal goals: Enter appropriate number in Comments. 2 = Unchanged. 3 = Slightly Better. 4 = Moderate Improvement. 5 = Met my Goal - Diagnosis & Disease Process Outcomes/Goals: Pt IDs own risk factors & lifestyle modifications by Session 10, Verbalizes symptoms of angina & response by session 3., Pt independently manages Plan/Interventions: Assist Pt to ID & engage in lifestyle modification to reduce CVD risk, Instruct on individual risk factors, Review symptoms of angina & emergency actions, Review secondary diagnosis & identify educational needs. - Safety Referral to Physical Therapy: No Referral to [facility] Case Management: No Fall Risk Assessed:: Yes Assistive Devices:: Wheelchair Exercise - Initial Assessment - Visit Date of Eval: 05/03/20 Session #:: 0 - PRE-CARDIAC REHAB EVALUATION Mets: Pre-: >5 METS for 30 minutes by discharge - Physician Prescribed Exercise Modalities: Treadmill, Rower, Airdyne, NuStep Frequency: 3x/week for 12 weeks [36 sessions] Intensity: 60-80% of age predicted maximum heart rate reserve Current METSs:: 2.0 Target Heart Rate:: 91-119 Resting Blood Pressure: 110/62 EKG Type: SINUS RHYTHM - Outcomes & Goals Goals:: Verbalizes understanding of THR, RPE & goal METS by session 6, Documents in home exercise log/reports 30 min aerobic 5 day/wk by DC, Demonstrates accurate pulse taking by DC - Intervention & Plan Exercise Program Goals: Instruct on personal THR & RPE, Instruct on MET level & personal MET goal, Instruct on home exercise - Physical Activity Home Exercise Physical Activity - Home Exercise: Safe Exercise, Warm-up, Self-monitoring, Cool-Down, Home Exercise > 30 min Daily, Sitting Time <3 hours/daily - Outcomes & Goals Outcomes/Goals: Demonstrates correct Warm-up/exercise Cool-Down (S3) if = 2.5 METs, Verbalizes symptoms of exercise intolerance by Session 3 (S3), Demonstrate safe equipment use (S3) & follows exercise prescrition (6) - Intervention & Plan Plan/Intervention: Instruct warm-up & cool-down if exercising at > 2 METs, Instruct on symptoms of exercise intolerance & actions to take, Instruct & monitor on saf, Assess intial functional capacity & safety risk Nutrition - Initial Assessment - Program Goals Nutrition Program Goals: LDL <100 optimal. 100 - 129 Near optimal. 130 - 159 Borderline High. 160 - 189 High. Total Cholesterol <200 desirable. 200 - 239 Borderline High. >/= 240 High. HDL < 40 Low >/=60 High. Triglycerides <150 desirable. <199 optimal. VlDL 5 - 40. HgbA1C <7%. BMI <25 Patient has diagnosis of Hyperlipidemia (ICD E78)?: Yes - Visit Date of Assessment:: 05/03/20 Session #:: 0 - PRE-CARDIAC REHABILITATION - Cholesterol/Lipids Triglycerides (mg/dL): 154 - 03/30/2019 Total Cholesterol (mg/dL): 150 LDL Cholesterol (mg/dL): 138 HDL Cholesterol (mg/dL): 46 Determine presence & major risk factors that modify LDL goal: Hypertension or hypertensive medication, Family history of premature CHD in Male < 55 years: female <65 yearsFa, Age men > 45 years; women >/= 55 years Outcomes/Goals: Pt IDs own risk factors & lifestyle modifications by Session 10, Verbalizes symptoms of angina & response by session 3., Pt independently manages Intervention/Plan: Instruct on personal lipid levels & lipid goals/NCEP guidelines, Instruct on cholesterol Referral to dietitian:: Yes - Diabetes (Other Core Measures) Diabetes Type: Not Applicable - Weight Mgt (Other Care) Not Applicable: Yes Height: 5 ft 10 in Weight:: 175 lb BMI: 25.1 Diagnosis Overweight/Obesity BMI> 30% ICD-10 E66: No Diagnosis High BMI/Morbid Obesity BMI> 35% ICD-10 Z68: No Outcomes/Goals: Pt sets, maintains & shows weight loss goal & trend during rehab Intervention/Plan: Instruct on ideal BMI & set weight loss goal w/patient - Healthy Eating Habits Will attend diet classes:: Yes Outcomes/Goals:: Consume diet rich in vegs,fruits,whole grain/high fiber,fish,lean meat, Limit sat/trans fats,cholesterol & added salts & sugars Intervention/Plan:: Assess current eating habits Medical - Initial Assessment - Visit Date of Eval: 05/03/20 Session #:: 0 - PRE-CARDIAC REHAB EVALUATION - Medication Compliance Preventative Medication(s):: Aspirin, LORNA inhibitor, Statin/lipid, Beta gloria H/O mental health issues: depression, anxiety, or addiction?: No Doesn?t believe in the benefits of treatment?: No Believes medications are unnecessary or harmful?: No Has a concern about medication side effects?: No Expresses concern over the cost of medications?: No Outcomes/Goals: Verbalizes medications,desired effect & common side effects @ DC, Pt self-reports following medication regimen, Keeps card in wallet w/medications listed by DC Interventions/plans: Instruct on medication effects & side effects, Review medication list w/patient every two weeks, Instruct importance of taking meds as ordered & assist problem solving - Tobacco Use Tobacco Use: Non-smoker - Hypertension Hypertension Diagnosis:: Hypertension ICD-10 I10 Resting Blood Pressure:: 110/62 - CONTROLLED WITH MEDICATIONS [place] [employer] Hypertension Guidelines: [place] [employer] Hypertension Guidelines. Normal BP Less than 120/80. Elevated BP 120/80. Hypertension Stage 1: BP 130-139/80-89. Hypertesnion Stage 2: BP 140 or higher/90 or higher. Hypertension Crisis: BP higher than 180/120 Outcomes/Goals: Able to verbalize/achieve optimal blood pressure <130/80, Incorporates diet changes & exercise for blood pressure control by DC Interventions/plan: Instruct on optimal blood pressure, hypertension & medications, Instruct on effects of sodium, alcohol, stress, exercise &hypertension - Tobacco Cessation Referral Smoking Cessation Referral:: No Individual Education/Counseling:: No Education Schedule Given:: Yes Psychosocial - Initial Assess - VIsit Date of Eval: 05/03/20 Session #:: 0 - PRE-CARDIAC REHABILITATION Not Applicable: Yes History of previous Mental disease:: No - Target Goals Target Goals: Assess presence or absence of depression. Using a valid screening tool, maximizes coping skills. Positive support system - Psychosocial Test Tool Used:: Robin Caba QOL Cardiac, PHQ-9 Questionnaire phq-9 Severity: Severity. 1-4 Minimal Depression. 5-9 Mild Depression. 10-14 Moderate Depression. 15-19 Moderately Sever Depression. 20-27 Severe Depression. Rule: - Referral to Behavioral Health PS - Interventions: Yes Attend Stress Management Classes, No Referral to Behavioral Health if PHQ-9 score >9:, No Referral to [facility], No Referral to Physician if PHQ-9 if score is 5-9: - Outcomes/Goals: See list Psychosocial Outcomes/Goals:: ID's personal stressors & 2 strategies to manage stress by discharge - Intervention/Plan: See List Interventions/Plan:: Assess stressors,coping strategies & signs of derpression on admission, Instruct/assist pt to develop coping & personal stress Mgt strategies, Instruct patient to recognize signs & symptoms of depression, Instruct patient to recog Patient Health Questionnaire Initial Assessment 1. Little interest or pleasure in doing things: Several days 2. Feeling down, depressed, or hopeless: Several days 3. Trouble falling or staying asleep, or sleeping too much: Several days 4. Feeling tired or having little energy: Several days 5. Poor appetite or overeating: Several days 6. Feeling bad about yourself -- or that you are a failure or have let yourself or your family down: Several days 7. Trouble concentrating on things, such as reading the newspaper or watching television: Several days 8. Moving or speaking so slowly that other people could have noticed. Or the opposite - being so fidgety or restless that you have been moving around a lot more than usual: Not at all 9. Thoughts that you would be better off , or of hurting yourself in some way: Not at all How difficult have these problems made it for you to do your work, take care of things at home, or get along with other people?: Not difficult at all Total Score: 7 GALILOE-Q SV Test - Statements CAD is a disease of the arteries in the heart: False Examples of risk factors for heart disease: True Angina is chest pain or discomfort: True The benefits of resistance training include: True Eating more meat and dairy products: False Anti-platelet medications such as aspirin are important: True The only effective way to manage stress: False An exercise warm-up slowly increases heart rate: I Don't Know Prepared, processed foods usually have high sodium: True Depression is common after a heart attack: I Don't Know The statin medications lower cholesterol: True To control blood pressure, lower the amount of sodium: True If someone gets chest discomfort during walking: False Transfats are partially hydrogenated vegetable oils: I Don't Know Sleep apnea that is not treated increases the risk: False To control cholesterol, one should become a vegetarian: False Someone knows if he/she is exercising at the right level: I Don't Know Diabetes cannot be prevented with exercise & health eating: False Stress is a large risk for heart attack: I Don't Know A diet that can help lower blood pressure is rich in: True - Total Score Total Correct Responses: 15 Self-Efficacy Initial Assessment We would like to know how confident you are in doing certain activities. Please select your confidence level for:: Select your confidence level for the following using the scale 1-10 where 1 is not at all confident and 10 is totally confident. Your score is the average of all 6 responses. Fatigue: How confident are you that you can keep the fatigue caused by your disease from interfering with the things you want to do? Select Number: 8 Physical Discomfort or Pain: How confident are you that you can keep the physical discomfort or pain of your disease from interfering with the things you want to do? Select Number: 7 Emotional Distress: How confident are you that you can keep the emotional distress caused by your disease from interfering with the things you want to do? Select Number: 8 Other Symptoms or Health Problems: How confident are you that you can keep other symptoms or health problems from interfering with the things you want to do? Select Number: 9 Different Tasks and Activities: How confident are you that you can do the different tasks and activities needed to manage your health condition so as to reduce your need to see a doctor? Select Number: 9 Medication: How confident are you that you can do things other than just taking medication to reduce how much your illness affects your everyday life? Select Number: 9 Total Score:: 8 Nutrition Survey - Nutrition Survey Instructions Scoring Instructions: Scoring is as follows: Yes = 1 points. No = 0 point. Patient score that is >/=12 is considered to be at potential nutritional risk and could benefit from a referral to a registered dietitian. - Nutrition Survey Initial Have you lost >10 lbs over the past 2 months without trying?: Yes Are you following a special diet at home for diabetes, low fat, or low salt?: No Are you interested in meeting with a dietitian for help understanding your diet?: No Do you eat less than 3 meals a day?: No Do you eat fatty meats (larson, sausage, ribs, etc), fried foods, desserts, large amounts of salad dressings, margarine, butter, or cheese most days?: No Do you have food allergies? [Enter types in comment field]: No Do you eat in restaurants more than 3 times a week?: No Do you season food with salt, seasoning salt, or garlic salt?: Yes Do you used canned, boxed, frozen meals, or soups, seasoning packets?: Yes Total Score:: 3
--- NOTE | 2020-05-03 11:56 | PCM.CR.HP2 ---
CR - History & Physical - General Arrival date:: 05/03/20 Arrival time:: 11:59 Date of Referral:: 04/25/20 Date of CR Evaluation:: 05/03/20 Referring Physician: DR. BE HAWLEY Primary Diagnosis: S/P CABG - History of Present Cardiac Event Onset Date: Enter Onset Date of cardiac illnesses in Comment field below Coronary Artery Bypass Graft:: Yes - 03/2020 Type of Symptoms:: SHORTNESS OF BREATH AND MILD CHEST DISCOMFORT, STARTED OUT HAVING ECG DONE, THEN STRESS TEST FOLLWOED BY HEART CATH. WAS THEN SENT FOR SURGICAL CONSULT FOR CABG. Were there any complications?: MAJOR BLEED POST OPERATIVE, HAD TO GO BACK IN TO SURGERY & SEDATED 3 DAYS - Medications Home Medications: Ambulatory Orders Medication Instructions Recorded aspirin 81 mg tablet,delayed 81 mg PO DAILY #90 tab 02/17/20 release oxycodone-acetaminophen 5 mg-325 1 tab PO Q8H PRN 04/20/20 mg tablet amiodarone 200 mg tablet 200 mg PO DAILY #30 tab 04/25/20 furosemide 40 mg tablet 40 mg PO DAILY #30 tab 04/25/20 metoprolol tartrate 25 mg tablet 12.5 mg PO BID #60 tab 04/25/20 - Allergies Allergies/Adverse Reactions: Allergies No Known Allergies Allergy (Unverified 04/25/20 11:37) - Sleep Disorder Evaluation Hx of Sleep Apnea: No Do you snore loudly (louder than talking or can be heard through closed doors)?: No Do you often feel tired/ fatigued/ sleepy during daytime?: Yes Has anyone observed you stop breathing during sleep?: No History of Hypertension (for STOP score): Yes - FATIGUE MOSTLY DUE TO SURGERY NOT SLEEP. STOP Results: Positive Advanced Directives - Advanced Directives Power of Customer Service Leader: Yes Living Will: Yes Advance Directives Information Provided: No Advance Directives on File: No DNR Order?:: No - MOLST See MOLST form: No Past Medical History - Covid-19 Screening Fever: No Unexplained muscle aches: No Current respiratory symptoms: No - COUGH A LITTLE BIT TOLD IT WAS FROM THE FLUID WHICH STARTED ON LASIX FOR. Upper respiratory infections symptoms: No Gastro-intestinal symptoms: Yes - GERD Zgi-Rnkf-Sohyqt symptoms: No Has tested positive for COVID-19 in last 30 days: No Had contact w/person w/symptoms or Covid-19 (+) last 14 days: No Has High Risk Exposures ID'd by Health dept/Inf Control team: No 65 years or older:: Yes Lives in Assisted Living facility:: No Has a chronic lung disease or moderate to severe asthma:: No Has a serious heart condition:: Yes Immunocompromised:: Yes Severely obese (Body Mass Index of 40 or higher):: No Diabetic:: No Has chronic kidney disease undergoing dialysis:: Yes Has liver disease:: No - Past Medical Illness Medical History: Past Medical History (Last Reviewed 04/25/20 @ 11:38 by Mary Patrick) Atherosclerotic heart disease of [place] coronary artery without angina pectoris (Chronic) I25.10 DVT (deep venous thrombosis) (Acute) I82.409 acute- Rt Peroneal vein and Rt gastrocnemius veins; acute superficial in the Lt great saphenous vein and chronic superficial in the Lt small saphenous vein Pleural effusion (Acute) J90 Dyspnea on exertion (Acute) R06.00 Chest pain (Acute) R07.9 Abnormal stress test (Acute) R94.39 Hepatic cyst (Chronic) K76.89 GERD (gastroesophageal reflux disease) (Chronic) K21.9 Mixed hyperlipidemia (Chronic) E78.2 Essential hypertension (Chronic) I10 CKD (chronic kidney disease) stage 3, GFR 30-59 ml/min (Chronic) N18.3 - Past Surgical History Surgical History: Past Surgical History (Last Reviewed 04/25/20 @ 11:38 by Mary Patrick) History of coronary artery bypass graft x 3 (Chronic) Onset Date: ~03/26/20 Z95.1 H/O repair of right rotator cuff Z98.890 History of hernia repair Z98.890, Z87.19 History of left heart catheterization (LHC) Onset Date: ~03/21/20 Z98.890 LEFT MAIN: Mild calcification, No significant disease noted; LEFT ANTERIOR DESCENDING ARTERY:PROX LAD: diffuse: eccentric: 75 % Stenosis, 95 % Stenosis, MID LAD: s/p DX: diffuse: eccentric: 85 % Stenosis, 95 % Stenosis, DIAGONAL 1: Ostial - 50 % Stenosis; CIRCUMFLEX ARTERY: Mild luminal irregularities, PROX CIRC: Mild calcification RIGHT CORONARY ARTERY: PROX RCA: Severe calcification, 95 % Stenosis, MID RCA: is occluded, DISTAL RCA: fills from left to right collateral flow: RECOMMENDATIONS: Risk factor modification, Medical therapy; Surgery consult for coronary revascularization; Case discussed / reviewed and patient accepted in transfer by Fabio Miller MD of CT Surgery at [facility] per cath 03/21/20 Status post thoracentesis Z98.890 Lt thoracentesis; 1100cc 04/10/20 Social History - Smoking History Smoking Status: Never smoker Hx Tobacco Use: No Hx Smoking Exposure: No - Alcohol Use Alcohol Usage: Yes - OCCASIONAL BEER OR GLASS OF WINE NOW AND THEN, NOTHING STEADY USE - Substance Abuse Hx Substance Use: No - Occupation Occupation (List type of work in comments):: Retired - Hobbies, Recreation, Social Activities Hobbies: Farm - [place], [employer], Other - GRANDCHILDREN Recreational Activities: I am able to engage in a few activities Social Environment - Status Marital Status: - Current Living Arrangements Living Environment:: Spouse - Children How many children do you have?: 2 Do any of your children live nearby?: Yes - Safety Do you feel safe in your surroundings?: Yes - Assistance Do you need any assistance at home?: NONE Review of Systems - Review of Systems Hints: Right click = Denies (Slash). Left click = Reports (Ewiiaapaayp) Review of Present Symptoms: Reports: Shortness of Breath with Exertion - WALKING ABOUT 500 FT NOT TO BAD, CLIMBING STAIRS STILL HAVING SOME SHORTNESS OF BREATH AND FATIGUE. STAMINA IS REALLY BEEN KNOCKED DOWN WIHT THE SURGERY., Wound Healing, Fatigue - SLOWLY IMPROVING, HAS COME A LONG WAY SINCE i'VE COME HOME FROM THE HOSPITAL, Heart Arrhythmia/Irregularities, Appetite - Normal - LITTLE LIGHT YET, BUT DOING BETTER PER HIS ., Sleep - Normal - GETTING THERE, AT FIRST HAD NIGHTS AND DAYS MIXED UP.. Denies: Dizziness/Lightheadedness, Appetite - Special Diet - Pain Is Patient Pain Free?: Yes Pain Location: none Pain Level: 0/10 Risk Factor Assessment - Chief Complaint Chief Complaint: [address] HAWLEY WHO PRESENTST O CARDIAC REHAB TODAY FOLLOWING RECENT CABG ON 03/2020. PATIENT IS ACCOMPANIED BY HIS TO DAY TO ASSIST WITH INFORMATION. - Vital Signs Temperature: 97.3 F Respiratory Rate: 16 Pulse Ox: 96 Blood Pressure: 110/62 Nailbeds:: PINK - Pulse Pulse Rate: 64 Pulse Rhythm: Regular - Hypertension Blood Pressure Sitting - Right Arm: 110/62 - Blood Cholesterol/Lipids Total Cholesterol (mg/dL) Goal = less than 200 mg/dL: 150 - 03/30/2019 HDL Cholesterol (mg/dL) Goal = less than 40 mg/dL: 46 LDL Cholesterol (mg/dL) Goal = less than 70 mg/dL: 138 Triglycerides (mg/dL) Goal = less than 150 mg/dL: 154 - Obesity Height: 5 ft 10 in Weight:: 175 lb Weight in Pounds: 175.0 lbs Body Mass Index (BMI): 25.1 Nutritional Referral for Obesity: No - Physical Inactivity Physical Inactivity: None - Risk Stratification Risk Guidelines: Lowest Risk: Risk Factor for Smoking, Risk Factor for Dyslipidemia, Risk Factor for Diabetes, Risk Factor for Obesity, Risk Factor for Hypertension, Risk Factor for Depression, Moderate Risk: Risk Factor for Sedentary Lifestyle - MILD-MODERATE; AMBULATES SHORT DISTANCES, OTHERWISE REQUIRES WHEELCHAIR., Highest Risk: Risk Factor for Sedentary Lifestyle - For Smoking Smoking Risk Guidelines: Smoking Low Risk: None or quit greater than 6 months ago. Smoking Moderate Risk: Smoker or quit 6 months or less ago. Smoking High Risk: Smoker - For Dyslipidemia Dyslipidemia Risk Guidelines: Low Risk: Moderate Risk: High Risk: 15-25% fat 25.1-29% fat >/= 30% fat. <7% sat fat 7-9% sat fat >9% sat fat. <150 mg chol 150-299 mg chol >/= 300 mg chol. LDL <100 LDL 100-129 LDL >/= 130. Chol/HDL ratio <5.0 Chol/HDL ratio 5.0-6.0 Chol/HDL ratio >6.0. Triglycerides <100 Triglycerides 100-149 Triglycerides >/= 150 - For Diabetes Mellitus Diabetes Risk Guidelines: Diabetes Low Risk: HgA1c <6.5% and/or FBG <120. Diabetes Moderate Risk: HgA1c 6.6-7.9% and/or FBG 120-180. Diabetes High Risk: HgA1c >/= 8% and/or FBG >180 - For Obesity/Overweight Obesity/Overweight Risk Guidelines: Obesity Low Risk: BMI <25.0. Obesity Moderate Risk: BMI 25-29.9. Obesity High Risk: BMI >/= 30.0 - For Hypertension Hypertension Risk Guidelines: Hypertension Low Risk: Systolic <120 and Diastolic <80. Hypertension Moderate Risk: Systolic 120-139 and Diastolic 80-89. Hypertension High Risk: Systolic >/= 140 and Diastolic >/= 90 - For Sedentary Lifestyle Sedentary Lifestyle Risk Guidelines: Sedentary Lifestyle Low Risk: >/= 1,500 kcal/week. Sedentary Lifestyle Moderate Risk: 700-1,499 kcal/week. Sedentary Lifestyle High Risk: < 700 kcal/week - For Depression Depression Risk Guidelines: Depression Low Risk: Not clinically depressed. Depression Moderate Risk: Mildly depressed. Depression High Risk: Clinically depressed Motivation - Motivation to Participate On a scale of 1 to 10, how prepared are you to commit to attending program?: 5 What do you see as barriers to successfully being able to complete the program?: NONE What do you see as the benefits of succesfully completing the program? In other words, what do you hope to get out of participating in the program?: I DON'T REALLY KOW, DO BETTER HEALTH HUANG, INCREASE ENDURANCE. Are there issues you are dealing with that will interfere with completing the program?: NONE Do you have a spouse or signficant other, family or friends who will help support you to complete the program?: YES.
[2020-05-03 12:14] VITALS: BP 110/62; BMI 25.1
[2020-05-03 12:29] VITALS: BP 110/62; PULSE 64; RESP 16; TEMP 36.3; O2SAT 96; BMI 25.1
== END ==
PROVIDERS: PCP Family Medicine Geriatric Medicine; Referring Provider Internal Medicine Cardiovascular Disease; Visit Provider Internal Medicine Cardiovascular Disease
DX: I12.9 Hypertensive chronic kidney disease with stage 1 through stage 4 chronic kidney disease, or unspecified chronic kidney disease (principal); N18.30 Chronic kidney disease, stage 3 unspecified; K21.9 Gastro-esophageal reflux disease without esophagitis; E78.2 Mixed hyperlipidemia

== ENCOUNTER → 2020-05-09 12:15 | Outpatient (CLI) | payer MEDICARE, SELFPAY ==
[2020-05-03 12:14] VITALS: BMI 25.1
[2020-05-03 12:29] VITALS: BMI 25.1
[2020-05-09 13:34] LABS: Hematocrit 39.7 % (40-54); Hemoglobin 12.1 g/dL (13.0-16.5); Mean Corp Hgb Conc 30.5 g/dL (32-36); Mean Corpuscular Hgb 30.8 pg (27.0-32.0); Mean Platelet Vol. 10.7 fl (6.2-12.0); Platelet Count 203 K/mm3 (150-450); RBC Distribution Width CV 13.6 % (11.6-14.6); RBC Distribution Width SD 50.6 fl (35.1-43.9); Red Blood Count 3.93 M/mm3 (4.6-6.2); White Blood Count 6.5 K/mm3 (4.4-11.0)
[2020-05-09 13:48] LABS: Albumin, Serum 3.5 g/dL (3.2-5.0); BUN 34 mg/dL (7-18); BUN/Creat Ratio 20.2 RATIO (10-20); Calcium,Total 8.9 mg/dL (8.5-10.1); Chloride 107 mmol/L (98-107); Creatinine, Serum 1.68 mg/dL (0.70-1.30); EST Glomerular Filtration Rate 42 mL/min (>60); Est Glom Filt Rate - Afr Amer 51 mL/min (>60); Glucose 112 mg/dL (74-106); Phosphorus 3.6 mg/dL (2.5-4.9); Potassium 3.9 mmol/L (3.5-5.1); Sodium Level 141 mmol/L (136-145)
--- NOTE | 2020-05-09 13:50 | RAD_ITS ---
STUDY: X-RAY CHEST REASON FOR EXAM: Male, 80 years old. Pleural effusion, Hx of CABG x6 wks ago. TECHNIQUE: PA and lateral COMPARISON: 04/19/2020 FINDINGS: There appears to be minor subsegmental atelectasis in left lower lobe. There is blunting of the costophrenic sulci bilaterally likely representing pleural thickening although tiny effusions cannot be excluded Postop change status post median sternotomy and CABG. Normal size heart. Normal mediastinum and jovan. Normal visualized pulmonary arteries. Normal visualized aortic arch and descending thoracic aorta. Dorsal spine demonstrates degenerative change. Normal visualized ribs, clavicles. There are degenerative changes of left shoulder and postsurgical changes on the right There is no demonstrated abnormality of the visualized soft tissue structures of the upper abdomen. RAD/Chest PA and Lateral IMPRESSION: Minor subsegmental atelectasis in left lower lobe. Blunting of the costophrenic sulci which may be consistent with tiny residual effusions or pleural thickening Electronically Signed: Fracisco Burgos MD at 20:32 EST , Service support ,
[2020-05-09 13:55] LABS: Protein:Creat Ratio 121 mg/g CRE (0-200)
[2020-05-11 12:52] LABS: PTHIN 59.4 pg/mL (18.4-80.1)
[2020-05-11 14:39] LABS: Vitamin D,25 Hydroxy 34.2 ng/mL
== END ==
PROVIDERS: PCP Family Medicine Geriatric Medicine; Visit Provider Internal Medicine Nephrology
DX: I12.9 Hypertensive chronic kidney disease with stage 1 through stage 4 chronic kidney disease, or unspecified chronic kidney disease (principal); N18.30 Chronic kidney disease, stage 3 unspecified; N25.81 Secondary hyperparathyroidism of renal origin; E55.9 Vitamin D deficiency, unspecified; I25.10 Atherosclerotic heart disease of native coronary artery without angina pectoris; Z95.1 Presence of aortocoronary bypass graft; I71.4 Abdominal aortic aneurysm, without rupture; E78.2 Mixed hyperlipidemia
CPT/HCPCS: 36415; 71046; 80069; 82306; 82570; 83970; 84156; 85027

== ENCOUNTER 2020-05-14 13:00 | Outpatient (RCR) | payer MEDICARE, SELFPAY ==
[2020-05-03 12:14] VITALS: BMI 25.1
[2020-05-03 12:29] VITALS: BMI 25.1
== END 2020-05-14 23:59 ==
LOC: CR 13:00
PROVIDERS: PCP Family Medicine Geriatric Medicine; Visit Provider Internal Medicine Cardiovascular Disease
DX: I25.10 Atherosclerotic heart disease of native coronary artery without angina pectoris (principal); Z95.1 Presence of aortocoronary bypass graft; I71.4 Abdominal aortic aneurysm, without rupture; I10 Essential (primary) hypertension; E78.2 Mixed hyperlipidemia
CPT/HCPCS: 93798

== ENCOUNTER 2020-06-13 13:00 | Outpatient (RCR) | payer MEDICARE, SELFPAY ==
[2020-05-03 12:14] VITALS: BMI 25.1
[2020-05-03 12:29] VITALS: BMI 25.1
== END 2020-06-14 23:59 ==
LOC: CR 13:00
PROVIDERS: PCP Family Medicine Geriatric Medicine; Visit Provider Internal Medicine Cardiovascular Disease
DX: I25.10 Atherosclerotic heart disease of native coronary artery without angina pectoris (principal); Z95.1 Presence of aortocoronary bypass graft; I71.4 Abdominal aortic aneurysm, without rupture; I10 Essential (primary) hypertension; E78.2 Mixed hyperlipidemia
CPT/HCPCS: 93798

== ENCOUNTER 2020-07-13 13:00 | Outpatient (RCR) | payer MEDICARE, SELFPAY ==
[2020-05-03 12:14] VITALS: BMI 25.1
[2020-05-31 14:11] VITALS: BMI 26.6
--- NOTE | 2020-06-29 06:45 | CR.ITP_ITS ---
Exercise - 60-day Assessment - Visit Date of Eval: 06/29/20 Session #:: 20 - Physician Prescribed Exercise Modalities: Treadmill, Airdyne, NuStep Frequency: 3x/week for 12 weeks [36 sessions] Intensity: 60-80% of age predicted maximum heart rate reserve Current METSs:: 3.0 unchanged Target Heart Rate:: 91-119 Current RPE:: 14-15 Maximum Excercise HR:: 85 Resting Blood Pressure: 124/62 Maximum Exercise Blood Pressure: 150/72 EKG Type: Sinus shaina to NSR with rare PACs. - Outcomes & Goals Goals:: Verbalizes understanding of THR, RPE & goal METS by session 6, Documents in home exercise log/reports 30 min aerobic 5 day/wk by DC, Demonstrates accurate pulse taking by DC - Intervention & Plan Exercise Program Goals: Instruct on personal THR & RPE, Instruct on MET level & personal MET goal, Show patient to take own pulse /validate performance until accurate, Instruct on home exercise - 30-day Reassessments 30 day Reassessments:: Progressing - Physical Activity Home Exercise Physical Activity - Home Exercise: Safe Exercise, Warm-up, Self-monitoring, Cool-Down, Home Exercise > 30 min Daily, Sitting Time <3 hours/daily - Outcomes & Goals Outcomes/Goals: Demonstrates correct Warm-up/exercise Cool-Down (S3) if = 2.5 METs, Verbalizes symptoms of exercise intolerance by Session 3 (S3), Demonstrate safe equipment use (S3) & follows exercise prescrition (6) - Intervention & Plan Plan/Intervention: Instruct warm-up & cool-down if exercising at > 2 METs, Instruct on symptoms of exercise intolerance & actions to take, Instruct & monitor on saf, Assess intial functional capacity & safety risk - 30-day Reassessments 30 day Reassessments:: Progressing Nutrition - 60-Day Assessment - Program Goals Nutrition Program Goals: LDL <100 optimal. 100 - 129 Near optimal. 130 - 159 Borderline High. 160 - 189 High. Total Cholesterol <200 desirable. 200 - 239 Borderline High. >/= 240 High. HDL < 40 Low >/=60 High. Triglycerides <150 desirable. <199 optimal. VlDL 5 - 40. HgbA1C <7%. BMI <25 Patient has diagnosis of Hyperlipidemia (ICD E78)?: Yes - Visit Date of Assessment:: 06/29/20 Session #:: 20 - Cholesterol/Lipids Triglycerides (mg/dL): 154 - 03/30/2019 Total Cholesterol (mg/dL): 215 LDL Cholesterol (mg/dL): 138 HDL Cholesterol (mg/dL): 46 Determine presence & major risk factors that modify LDL goal: Hypertension or hypertensive medication, Family history of premature CHD in Male < 55 years: female <65 yearsFa, Age men > 45 years; women >/= 55 years Outcomes/Goals: Pt IDs own risk factors & lifestyle modifications by Session 10, Verbalizes symptoms of angina & response by session 3., Pt independently manages Intervention/Plan: Advocate for lipid panel cholesterol medication if applicable, Instruct on personal lipid levels & lipid goals/NCEP guidelines, Instruct on cholesterol Referral to dietitian:: No - After speaking with the patient, they indicated they are not interested 30-day Reassessments:: Progressing - Diabetes (Other Core Measures) Diabetes Type: Not Applicable - Weight Mgt (Other Care) Not Applicable: Yes Height: 5 ft 10 in Weight:: 189 lb BMI: 27.1 Diagnosis Overweight/Obesity BMI> 30% ICD-10 E66: No Diagnosis High BMI/Morbid Obesity BMI> 35% ICD-10 Z68: No Outcomes/Goals: Pt sets, maintains & shows weight loss goal & trend during rehab Intervention/Plan: Instruct on ideal BMI & set weight loss goal w/patient 30 day Reassessments:: Met - Healthy Eating Habits Will attend diet classes:: Yes Outcomes/Goals:: Consume diet rich in vegs,fruits,whole grain/high fiber,fish,lean meat, Limit sat/trans fats,cholesterol & added salts & sugars Intervention/Plan:: Assess current eating habits 30-day Reassessments:: Progressing Medical- 60-Day Assessment - Visit Date of Eval: 06/29/20 Session #:: 20 - Medication Compliance Preventative Medication(s):: Aspirin, Statin/lipid - Patient is not on any statin medication, Beta gloria H/O mental health issues: depression, anxiety, or addiction?: No Doesn?t believe in the benefits of treatment?: No Believes medications are unnecessary or harmful?: No Has a concern about medication side effects?: No Expresses concern over the cost of medications?: No Outcomes/Goals: Verbalizes medications,desired effect & common side effects @ DC, Pt self-reports following medication regimen, Keeps card in wallet w/medications listed by DC Interventions/plans: Instruct on medication effects & side effects, Review medication list w/patient every two weeks, Instruct importance of taking meds as ordered & assist problem solving 30-day Reassessments:: Progressing - Tobacco Use Tobacco Use: Non-smoker - Hypertension Hypertension Diagnosis:: Hypertension ICD-10 I10 Resting Blood Pressure:: 124/62 [place] [employer] Hypertension Guidelines: [place] [employer] Hypertension Guidelines. Normal BP Less than 120/80. Elevated BP 120/80. Hypertension Stage 1: BP 130-139/80-89. Hypertesnion Stage 2: BP 140 or hi gher/90 or higher. Hypertension Crisis: BP higher than 180/120 Peak Exercise Blood Pressure:: 150/72 Outcomes/Goals: Able to verbalize/achieve optimal blood pressure <130/80, Incorporates diet changes & exercise for blood pressure control by DC Interventions/plan: Instruct on optimal blood pressure, hypertension & medicati ons, Instruct on effects of sodium, alcohol, stress, exercise &hypertension 30 day Reassessments:: Progressing - Tobacco Cessation Referral Smoking Cessation Referral:: No Individual Education/Counseling:: No Education Schedule Given:: Yes Psychosocial - 60-Day Assess - VIsit Date of Eval: 06/29/20 Session #:: 20 Not Applicable: Yes History of previous Mental disease:: No - Target Goals Target Goals: Assess presence or absence of depression. Using a valid screening tool, maximizes coping skills. Positive support system - Psychosocial Test Tool Used:: PHQ-9 Questionnaire phq-9 Severity: Severity. 1-4 Minimal Depression. 5-9 Mild Depression. 10-14 Moderate Depression. 15-19 Moderately Sever Depression. 20-27 Severe Depression. Rule: - Referral to Behavioral Health PS - Interventions: Yes Attend Stress Management Classes, No Referral to Behavioral Health if PHQ-9 score >9:, No Referral to [facility], No Referral to Physician if PHQ-9 if score is 5-9: - Outcomes/Goals: See list Psychosocial Outcomes/Goals:: ID's personal stressors & 2 strategies to manage stress by discharge - Intervention/Plan: See List Interventions/Plan:: Assess stressors,coping strategies & signs of derpression on admission, Instruct/assist pt to develop coping & personal stress Mgt strategies, Instruct patient to recognize signs & symptoms of depression, Instruct patient to recog - 30-day Reassessments: 30 day Reassessments:: Progressing Patient Health Questionnaire 60-Day Re-eval Assessment 1. Little interest or pleasure in doing things: Not at all 2. Feeling down, depressed, or hopeless: Several days 3. Trouble falling or staying asleep, or sleeping too much: Several days 4. Feeling tired or having little energy: Several days 5. Poor appetite or overeating: Several days 6. Feeling bad about yourself -- or that you are a failure or have let yourself or your family down: Not at all 7. Trouble concentrating on things, such as reading the newspaper or watching television: Not at all 8. Moving or speaking so slowly that other people could have noticed. Or the opposite - being so fidgety or restless that you have been moving around a lot more than usual: Not at all 9. Thoughts that you would be better off , or of hurting yourself in some way: Not at all How difficult have these problems made it for you to do your work, take care of things at home, or get along with other people?: Somewhat difficult Total Score: 4 Self-Efficacy 60-Day Re-eval Assessment We would like to know how confident you are in doing certain activities. Please select your confidence level for:: Select your confidence level for the following using the scale 1-10 where 1 is not at all confident and 10 is totally confident. Your score is the average of all 6 responses. Fatigue: How confident are you that you can keep the fatigue caused by your disease from interfering with the things you want to do? Select Number: 9 Physical Discomfort or Pain: How confident are you that you can keep the physical discomfort or pain of your disease from interfering with the things you want to do? Select Number: 8 Emotional Distress: How confident are you that you can keep the emotional distress caused by your disease from interfering with the things you want to do? Select Number: 9 Other Symptoms or Health Problems: How confident are you that you can keep other symptoms or health problems from interfering with the things you want to do? Select Number: 10 Different Tasks and Activities: How confident are you that you can do the different tasks and activities needed to manage your health condition so as to reduce your need to see a doctor? Select Number: 10 Medication: How confident are you that you can do things other than just taking medication to reduce how much your illness affects your everyday life? Select Number: 10 Total Score:: 9
[2020-06-29 06:53] VITALS: BP 124/62; BP 150/72; BMI 27.1
== END 2020-07-15 23:59 ==
LOC: CR 13:00
PROVIDERS: PCP Family Medicine Geriatric Medicine; Visit Provider Internal Medicine Cardiovascular Disease
DX: Z95.1 Presence of aortocoronary bypass graft (principal); I25.10 Atherosclerotic heart disease of native coronary artery without angina pectoris; I71.4 Abdominal aortic aneurysm, without rupture; I10 Essential (primary) hypertension; E78.2 Mixed hyperlipidemia
CPT/HCPCS: 93798

== ENCOUNTER 2020-08-06 13:00 | Outpatient (RCR) | payer MEDICARE, SELFPAY ==
[2020-06-29 06:53] VITALS: BMI 27.1
[2020-07-12 10:54] VITALS: BMI 27.8
[2020-07-16 00:32] VITALS: BP 124/62; BP 150/72
--- NOTE | 2020-08-02 07:18 | CR.ITP_ITS ---
Exercise - Final/Discharge - Visit Date of Eval: 08/02/20 Session #:: 34 - Physician Prescribed Exercise Modalities: Treadmill, Airdyne, NuStep Frequency: 3x/week for 12 weeks [36 sessions] Intensity: 60-80% of age predicted maximum heart rate reserve Current METSs:: 3.7 unchanged Target Heart Rate:: 91-119 Current RPE:: 14-15 Maximum Excercise HR:: 95 Resting Blood Pressure: 142/80 - remains elevated on medications Maximum Exercise Blood Pressure: 158/84 EKG Type: Sinus shaina to sinus rhythm with rare PAC, isolated PVC - Outcomes & Goals Goals:: Verbalizes understanding of THR, RPE & goal METS by session 6, Documents in home exercise log/reports 30 min aerobic 5 day/wk by DC, Demonstrates accurate pulse taking by DC - Intervention & Plan Exercise Program Goals: Instruct on personal THR & RPE, Instruct on MET level & personal MET goal, Show patient to take own pulse /validate performance until accurate, Instruct on home exercise - 30-day Reassessments 30 day Reassessments:: Met - Physical Activity Home Exercise Physical Activity - Home Exercise: Safe Exercise, Warm-up, Self-monitoring, Cool-Down, Home Exercise > 30 min Daily, Sitting Time <3 hours/daily - Outcomes & Goals Outcomes/Goals: Demonstrates correct Warm-up/exercise Cool-Down (S3) if = 2.5 METs, Verbalizes symptoms of exercise intolerance by Session 3 (S3), Demonstrate safe equipment use (S3) & follows exercise prescrition (6) - Intervention & Plan Plan/Intervention: Instruct warm-up & cool-down if exercising at > 2 METs, Instruct on symptoms of exercise intolerance & actions to take, Instruct & monitor on saf, Assess intial functional capacity & safety risk - 30-day Reassessments 30 day Reassessments:: Met Nutrition - Final Assessment - Program Goals Nutrition Program Goals: LDL <100 optimal. 100 - 129 Near optimal. 130 - 159 Borderline High. 160 - 189 High. Total Cholesterol <200 desirable. 200 - 239 Borderline High. >/= 240 High. HDL < 40 Low >/=60 High. Triglycerides <150 desirable. <199 optimal. VlDL 5 - 40. HgbA1C <7%. BMI <25 Patient has diagnosis of Hyperlipidemia (ICD E78)?: Yes - Visit Date of Assessment:: 08/02/20 Session #:: 34 - Cholesterol/Lipids Determine presence & major risk factors that modify LDL goal: Hypertension or hypertensive medication, Family history of premature CHD in Male < 55 years: female <65 yearsFa, Age men > 45 years; women >/= 55 years Outcomes/Goals: Pt IDs own risk factors & lifestyle modifications by Session 10, Verbalizes symptoms of angina & response by session 3., Pt independently manages Intervention/Plan: Instruct on personal lipid levels & lipid goals/NCEP guidelines, Instruct on cholesterol Referral to dietitian:: No - Patient was not intersted 30-day Reassessments:: Progressing - Diabetes (Other Core Measures) Diabetes Type: Not Applicable - Weight Mgt (Other Care) Not Applicable: Yes Height: 5 ft 10 in Weight:: 195 lb BMI: 27.9 Diagnosis Overweight/Obesity BMI> 30% ICD-10 E66: No Diagnosis High BMI/Morbid Obesity BMI> 35% ICD-10 Z68: No Outcomes/Goals: Pt sets, maintains & shows weight loss goal & trend during rehab Intervention/Plan: Instruct on ideal BMI & set weight loss goal w/patient, Assist pt to ID & incorporate diet changes for weight loss by S9 30 day Reassessments:: Progressing - Healthy Eating Habits Will attend diet classes:: Yes Outcomes/Goals:: Consume diet rich in vegs,fruits,whole grain/high fiber,fish,lean meat, Limit sat/trans fats,cholesterol & added salts & sugars Intervention/Plan:: Assess current eating habits 30-day Reassessments:: Progressing Medical - Final Assessment - Visit Date of Eval: 08/02/20 Session #:: 34 - Medication Compliance Preventative Medication(s):: Aspirin, LORNA inhibitor, Statin/lipid, Beta gloria H/O mental health issues: depression, anxiety, or addiction?: No Doesn?t believe in the benefits of treatment?: No Believes medications are unnecessary or harmful?: No Has a concern about medication side effects?: No Expresses concern over the cost of medications?: No Outcomes/Goals: Verbalizes medications,desired effect & common side effects @ DC, Pt self-reports following medication regimen, Keeps card in wallet w/medications listed by DC Interventions/plans: Instruct on medication effects & side effects, Review medication list w/patient every two weeks, Instruct importance of taking meds as ordered & assist problem solving 30-day Reassessments:: Progressing - Tobacco Use Tobacco Use: Non-smoker - Hypertension Hypertension Diagnosis:: Hypertension ICD-10 I10 Resting Blood Pressure:: 142/80 - Stage I on medication [place] [employer] Hypertension Guidelines: [place] [employer] Hypertension Guidelines. Normal BP Less than 120/80. Elevated BP 120/80. Hypertension Stage 1: BP 130-139/80-89. Hypertesnion Stage 2: BP 140 or higher/90 or higher. Hypertension Crisis: BP higher than 180/120 Peak Exercise Blood Pressure:: 158/84 Outcomes/Goals: Able to verbalize/achieve optimal blood pressure <130/80, Inc orporates diet changes & exercise for blood pressure control by DC Interventions/plan: Instruct on optimal blood pressure, hypertension & medications, Instruct on effects of sodium, alcohol, stress, exercise &hypertension 30 day Reassessments:: Not Met - Tobacco Cessation Referral Smoking Cessation Referral:: No Individual Education/Counseling:: No Education Schedule Given:: Yes Psychosocial - Final Assessmen - VIsit Date of Eval: 08/02/20 Session #:: 34 Not Applicable: Yes History of previous Mental disease:: No - Target Goals Target Goals: Assess presence or absence of depression. Using a valid screening tool, maximizes coping skills. Positive support system - Psychosocial Test Tool Used:: Adim8 QOL Cardiac, PHQ-9 Questionnaire phq-9 Severity: Severity. 1-4 Minimal Depression. 5-9 Mild Depression. 10-14 Moderate Depression. 15-19 Moderately Sever Depression. 20-27 Severe Depression. Rule: - Referral to Behavioral Health PS - Interventions: Yes Attend Stress Management Classes, No Referral to Behavioral Health if PHQ-9 score >9:, No Referral to [facility], No Referral to Physician if PHQ-9 if score is 5-9: - Outcomes/Goals: See list Psychosocial Outcomes/Goals:: ID's personal stressors & 2 strategies to manage stress by discharge - Intervention/Plan: See List Interventions/Plan:: Assess stressors,coping strategies & signs of derpression on admission, Instruct/assist pt to develop coping & personal stress Mgt strategies, Instruct patient to recognize signs & symptoms of depression, Instruct patient to recog - 30-day Reassessments: 30 day Reassessments:: Met Patient Health Questionnaire Discharge Assessment 1. Little interest or pleasure in doing things: Not at all 2. Feeling down, depressed, or hopeless: Not at all 3. Trouble falling or staying asleep, or sleeping too much: Several days 4. Feeling tired or having little energy: Not at all 5. Poor appetite or overeating: Several days 6. Feeling bad about yourself -- or that you are a failure or have let yourself or your family down: Not at all 7. Trouble concentrating on things, such as reading the newspaper or watching television: Not at all 8. Moving or speaking so slowly that other people could have noticed. Or the opp osite - being so fidgety or restless that you have been moving around a lot more than usual: Not at all 9. Thoughts that you would be better off , or of hurting yourself in some way: Not at all How difficult have these problems made it for you to do your work, take care of things at home, or get along with other people?: Not difficult at all Total Score: 2 Self-Efficacy Discharge Assessment We would like to know how confident you are in doing certain activities. Please select your confidence level for:: Select your confidence level for the following using the scale 1-10 where 1 is not at all confident and 10 is totally confident. Your score is the average of all 6 responses. Fatigue: How confident are you that you can keep the fatigue caused by your disease from interfering with the things you want to do? Select Number: 9 Physical Discomfort or Pain: How confident are you that you can keep the physical discomfort or pain of your disease from interfering with the things you want to do? Select Number: 9 Emotional Distress: How confident are you that you can keep the emotional distress caused by your disease from interfering with the things you want to do? Select Number: 10 Other Symptoms or Health Problems: How confident are you that you can keep other symptoms or health problems from interfering with the things you want to do? Select Number: 10 Different Tasks and Activities: How confident are you that you can do the different tasks and activities needed to manage your health condition so as to reduce your need to see a doctor? Select Number: 10 Medication: How confident are you that you can do things other than just taking medication to reduce how much your illness affects your everyday life? Select Number: 10 Total Score:: 9 Nutrition Survey - Nutrition Survey Instructions Scoring Instructions: Scoring is as follows: Yes = 1 points. No = 0 point. Patient score that is >/=12 is considered to be at potential nutritional risk and could benefit from a referral to a registered dietitian. - Nutrition Survey Discharge Have you lost >10 lbs over the past 2 months without trying?: No Are you following a special diet at home for diabetes, low fat, or low salt?: Yes - low sodium, low fat cardiac diet Are you interested in meeting with a dietitian for help understanding your diet?: No Do you eat less than 3 meals a day?: Yes - sometimes Do you eat fatty meats (larson, sausage, ribs, etc), fried foods, desserts, large amounts of salad dressings, margarine, butter, or cheese most days?: No Do you have food allergies? [Enter types in comment field]: No Do you eat in restaurants more than 3 times a week?: No Do you season food with salt, seasoning salt, or garlic salt?: No Do you used canned, boxed, frozen meals, or soups, seasoning packets?: No Total Score:: 2
[2020-08-02 07:29] VITALS: BP 142/80; BP 158/84; BMI 27.9
== END 2020-08-12 23:59 ==
LOC: CR 13:00
PROVIDERS: PCP Family Medicine Geriatric Medicine; Visit Provider Internal Medicine Cardiovascular Disease
DX: Z95.1 Presence of aortocoronary bypass graft (principal); I25.10 Atherosclerotic heart disease of native coronary artery without angina pectoris; I71.4 Abdominal aortic aneurysm, without rupture; I10 Essential (primary) hypertension; E78.2 Mixed hyperlipidemia
CPT/HCPCS: 93798

== ENCOUNTER → 2020-08-29 13:39 | Outpatient (CLI) | payer MEDICARE, SELFPAY ==
[2020-07-12 10:54] VITALS: BMI 27.8
[2020-08-02 07:29] VITALS: BMI 27.9
[2020-08-29 15:21] LABS: Protein, Urine (Random) 44.4 mg/dL (<11.9); Protein:Creat Ratio 370 mg/g CRE (0-200)
[2020-08-29 15:40] LABS: Anion Gap 6 (5-15); BUN 23 mg/dL (7-18); BUN/Creat Ratio 14.8 RATIO (10-20); Calcium,Total 8.8 mg/dL (8.5-10.1); Chloride 108 mmol/L (98-107); Creatinine, Serum 1.55 mg/dL (0.70-1.30); EST Glomerular Filtration Rate 46 mL/min (>60); Est Glom Filt Rate - Afr Amer 56 mL/min (>60); Glucose 83 mg/dL (74-106); Potassium 3.9 mmol/L (3.5-5.1); Sodium Level 140 mmol/L (136-145)
== END ==
PROVIDERS: PCP Family Medicine Geriatric Medicine; Referring Provider Internal Medicine Nephrology; Visit Provider Internal Medicine Nephrology
DX: N18.32 Chronic kidney disease, stage 3b (principal)
CPT/HCPCS: 36415; 80048; 82570; 84156

== ENCOUNTER → 2020-09-17 15:13 | Outpatient (CLI) | payer MEDICARE, SELFPAY ==
[2020-07-12 10:54] VITALS: BMI 27.8
[2020-08-02 07:29] VITALS: BMI 27.9
[2020-09-17 17:17] LABS: Absolute Lymphocyte Count 2.27 X10^3/uL (0.83-4.51); Absolute Neutrophil Count 3.9 X10^3/uL (2.0-7.7); Basophil# 0.06 X10^3/uL; Basophil% 0.9 % (0-1); Eosinophils% 1.4 % (0-5); Hematocrit 44.1 % (40-54); Hemoglobin 13.8 g/dL (13.0-16.5); Lymphocyte # 2.27 X10^3/ul (4.0); Lymphocyte % 32.7 % (19-41); Mean Corp Hgb Conc 31.3 g/dL (32-36); Mean Corpuscular Hgb 28.8 pg (27.0-32.0); Mean Corpuscular Volume 91.9 fL (80-94); Mean Platelet Vol. 11.3 fl (6.2-12.0); Monocyte# 0.59 X10^3/uL; Monocyte% 8.5 % (0-10); NRBC Flagged by Analyzer 0 % (0-5); Neutrophil # 3.89 X10^3/uL (2.7-7.7); Neutrophil % 56.1 % (47-70); Platelet Count 162 K/mm3 (150-450); RBC Distribution Width CV 15.9 % (11.6-14.6); RBC Distribution Width SD 53.9 fl (35.1-43.9); White Blood Count 6.9 K/mm3 (4.4-11.0)
[2020-09-17 17:35] LABS: BNP,B-Type NATRIURETIC PEPTIDE 73.6 pg/mL (0-100); Vitamin D,25 Hydroxy 35.2 ng/mL
[2020-09-17 18:58] LABS: ALB/GLOB Ratio 1.2 RATIO (0.9-2.4); AST(SGOT) 16 U/L (15-37); Alanine Aminotransfer ALT/SGPT 19 U/L (16-61); Albumin, Serum 4.1 g/dL (3.2-5.0); Alkaline Phosphatase 82 U/L (45-117); Anion Gap 5 (5-15); BUN 20 mg/dL (7-18); BUN/Creat Ratio 11.8 RATIO (10-20); Calcium,Total 8.8 mg/dL (8.5-10.1); Chloride 107 mmol/L (98-107); Cholesterol 298 mg/dL (200); EST Glomerular Filtration Rate 41 mL/min (>60); Est Glom Filt Rate - Afr Amer 50 mL/min (>60); Globulin 3.5 g/dL (2.2-4.2); Glucose 85 mg/dL (74-106); High Density Lipoprotein 54 mg/dL; Potassium 4.2 mmol/L (3.5-5.1); Protein, Total 7.6 g/dL (6.4-8.2); Sodium Level 140 mmol/L (136-145); Triglycerides 196 mg/dL; Very Low Density Lipoprotein 39 mg/dL (5-40)
[2020-09-20 17:03] LABS: SAR-COV-2 IGA ANTIBODY Negative (Negative)
== END ==
PROVIDERS: PCP Family Medicine Geriatric Medicine; Visit Provider Family Medicine Geriatric Medicine
DX: E78.5 Hyperlipidemia, unspecified (principal); I10 Essential (primary) hypertension; E55.9 Vitamin D deficiency, unspecified; R07.9 Chest pain, unspecified
CPT/HCPCS: 36415; 80053; 80061; 82306; 83880; 84443; 85025; 86769

== ENCOUNTER → 2020-10-01 07:50 | Outpatient (CLI) | payer MEDICARE, SELFPAY ==
[2020-07-12 10:54] VITALS: BMI 27.8
[2020-08-02 07:29] VITALS: BMI 27.9
--- NOTE | 2020-10-01 07:52 | AAVD_ITS ---
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 in cross- Peak systolic flow velocities within the proximal sectional axis. aorta measure 84.3 cm/sec. Proximal aorta measures2.08cm. in longitudinal Peak systolic flow velocities within the mid aorta axis. measure 63.4 cm/sec. Mid aorta measures2.67 x 2.57cm. in cross- Peak systolic flow velocities within the distal sectional axis. aorta measure 65.8 cm/sec. Mid aorta measures2.57cm. in longitudinal axis. Distal aorta measures2.41 x 2.41cm. in cross- sectional axis. Distal aorta measures2.42cm. in longitudinal axis. Multiple large nonvascularized hypoechoic structures noted in the liver, largest measuring approximently 11.19 x 13.18 cm. Left Iliac Artery Left iliac artery measures 1.09 x 1.09 cm. in the cross-sectional axis. Left iliac artery measures 1.06 cm. in the longitudinal axis. Peak systolic velocity in the left iliac artery measures 100.1 cm/sec. Right Iliac Artery Right iliac artery measures 0.96 x 0.96 cm. in the cross-sectional axis. Right iliac artery measures 0.96 cm. in the longitudinal axis. Peak systolic velocity in the right iliac artery measures 75.7 cm/sec. Procedure Aorta IVC Iliac vasculature or bypass grafts [id number]. Exam performed in department. VL/Abd Aortic/IVC Duplex scan Interpretation Summary Maximal aortic diameter in the mid abdominal aorta 2.67 x 2.57 cm. Left common iliac artery 1.09 x 1.09 cm Right common iliac 0.96 x 0.96 cm diameter Normal aortic velocities Incidental note suggested multiple large nonvascularized hypoechoic structures of the liver. Clinical correlation indicated as this examination was not a dedicated liver ul trasound. Findings do not suggest a current abdominal aortic aneurysm Ordering Physician: Ruben Sim Referring Physician: Ruben Sim Chi Performed By: Kayleigh Wilkins RVT
== END ==
PROVIDERS: PCP Family Medicine Geriatric Medicine; Referring Provider Family Medicine Geriatric Medicine; Visit Provider Family Medicine Geriatric Medicine
DX: I71.4 Abdominal aortic aneurysm, without rupture (principal)
CPT/HCPCS: 93978

== ENCOUNTER → 2020-10-11 07:55 | Outpatient (CLI) | payer MEDICARE, SELFPAY ==
[2020-07-12 10:54] VITALS: BMI 27.8
[2020-08-02 07:29] VITALS: BMI 27.9
--- NOTE | 2020-10-11 07:56 | US_ITS ---
STUDY: ABDOMINAL ULTRASOUND - RIGHT UPPER QUADRANT REASON FOR VISIT: Male, 80 years old OTHER SPECIFIED DIEASE OF LIVER TECHNIQUE: Ultrasound evaluation of the right upper quadrant was performed with real-time and static ochoa-scale imaging. TECHNICAL QUALITY: Adequate. COMPARISON: Comparison is made with prior study dated 03/13/2020. FINDINGS: Liver: The liver is enlarged and measures 19.8 cm. There is increased echogenicity consistent with fatty infiltration. The bile ducts are within normal limits. There is hepatic color flow. The direction of portal flow is hepatopetal. There is an 11.8 cm x 13.4 cm x 12.4 cm right hepatic cyst. There is also evidence of a 8.2 cm x 9.6 cm x 8.9 cm cyst in the left lobe of the liver. Gallbladder: Normal distended gallbladder. The gallbladder wall measures 2 mm. There is a negative sonographic Shankar''s sign. There is no pericholecystic fluid. There are no gallstones. Common Bile Duct (C.B.D.): The common bile duct measures 5 mm. Pancreas: There is nonvisualization of the pancreas. Right Kidney: There is atrophy of the right kidney. The right kidney measures 7.9 cm x 3.4 cm x 2.4 cm. There is thinning of the renal cortex. The right cortex measures 0.9 cm. There is no demonstrated renal mass or cyst. There is no right hydronephrosis. US/Abdomen Limited IMPRESSION: Hepatomegaly and diffuse fatty infiltration of the liver. Hepatic cysts. Atrophy of the right kidney. Electronically Signed: Gatito Funez MD at 10:02 EDT , Service support ,
== END ==
PROVIDERS: PCP Family Medicine Geriatric Medicine; Referring Provider Family Medicine Geriatric Medicine; Visit Provider Family Medicine Geriatric Medicine
DX: K76.89 Other specified diseases of liver (principal)
CPT/HCPCS: 76705

== ENCOUNTER → 2020-10-17 08:08 | Outpatient (CLI) | payer MEDICARE, SELFPAY ==
[2020-07-12 10:54] VITALS: BMI 27.8
[2020-08-02 07:29] VITALS: BMI 27.9
--- NOTE | 2020-10-17 08:10 | US_ITS ---
STUDY: ABDOMINAL ULTRASOUND - ELASTOGRAPHY REASON FOR VISIT: Male, 80 years old. Fatty infiltration of the liver. History of primary biliary cirrhosis. TECHNIQUE: Liver stiffness measurements were obtained on a Dog Digital RS 85 ultrasound machine using a CA 1-7 probe following the SRU guidelines. 3 measurements were obtained using a 2-D-SWE method. The IQR/M was 20 percent suggesting a quality data set. TECHNICAL QUALITY: Adequate. COMPARISON: Comparison is made with prior examination dated 10/11/2020. FINDINGS: Liver: Hepatomegaly with diffuse fatty infiltration of the liver. Median liver stiffness measured 7.2 kPa. US/Elastography Parenchyma/Organ IMPRESSION: Liver stiffness measures 7.2 kPa compatible with F2 Metavir score. Electronically Signed: Gatito Funez MD at 9:32 EDT , Service support ,
== END ==
PROVIDERS: PCP Family Medicine Geriatric Medicine; Referring Provider Family Medicine Geriatric Medicine; Visit Provider Family Medicine Geriatric Medicine
DX: K76.0 Fatty (change of) liver, not elsewhere classified (principal)
CPT/HCPCS: 76981

== ENCOUNTER → 2020-11-01 11:51 | Outpatient (CLI) | payer MEDICARE, SELFPAY ==
[2020-07-12 10:54] VITALS: BMI 27.8
[2020-08-02 07:29] VITALS: BMI 27.9
[2020-11-01 10:57] VITALS: BMI 27.8
== END ==
PROVIDERS: PCP Family Medicine Geriatric Medicine; Visit Provider Family Medicine Geriatric Medicine
DX: E03.9 Hypothyroidism, unspecified (principal)
CPT/HCPCS: 36415; 84443

== ENCOUNTER → 2020-12-25 10:45 | Outpatient (CLI) | payer MEDICARE, SELFPAY ==
[2020-08-02 07:29] VITALS: BMI 27.9
[2020-11-01 10:57] VITALS: BMI 27.8
[2020-12-25 13:06] LABS: PSA,Total- Diagnostic 5.79 ng/mL (0.0-4.0); Thyroid Stim Hormone (TSH) 1.48 uIU/mL (0.358-3.74)
== END ==
PROVIDERS: PCP Family Medicine Geriatric Medicine; Referring Provider Family Medicine Geriatric Medicine; Visit Provider Family Medicine Geriatric Medicine
DX: E03.9 Hypothyroidism, unspecified (principal); R97.20 Elevated prostate specific antigen [PSA]
CPT/HCPCS: 36415; 84153; 84443

== ENCOUNTER → 2021-02-05 08:59 | Outpatient (CLI) | payer MEDICARE, SELFPAY ==
[2020-08-02 07:29] VITALS: BMI 27.9
[2021-02-05 09:30] LABS: Hematocrit 44.9 % (40-54); Hemoglobin 13.9 g/dL (13.0-16.5); Mean Corpuscular Hgb 28.3 pg (27.0-32.0); Mean Corpuscular Volume 91.3 fL (80-94); Mean Platelet Vol. 10.7 fl (6.2-12.0); Platelet Count 176 K/mm3 (150-450); RBC Distribution Width CV 13.2 % (11.6-14.6); RBC Distribution Width SD 44.5 fl (35.1-43.9); Red Blood Count 4.92 M/mm3 (4.6-6.2)
[2021-02-05 09:43] LABS: Protein, Urine (Random) 14.7 mg/dL (<11.9); Protein:Creat Ratio 83 mg/g CRE (0-200)
[2021-02-05 10:13] LABS: Vitamin D,25 Hydroxy 54.2 ng/mL
[2021-02-05 10:27] LABS: Anion Gap 5 (5-15); BUN 19 mg/dL (7-18); BUN/Creat Ratio 14.4 RATIO (10-20); Calcium,Total 8.7 mg/dL (8.5-10.1); Chloride 108 mmol/L (98-107); Creatinine, Serum 1.32 mg/dL (0.70-1.30); EST Glomerular Filtration Rate 55 mL/min (>60); Est Glom Filt Rate - Afr Amer 67 mL/min (>60); Glucose 95 mg/dL (74-106); Sodium Level 140 mmol/L (136-145)
== END ==
PROVIDERS: PCP Family Medicine Geriatric Medicine; Referring Provider Internal Medicine Nephrology; Visit Provider Internal Medicine Nephrology
DX: N18.31 Chronic kidney disease, stage 3a (principal); N25.81 Secondary hyperparathyroidism of renal origin; E55.9 Vitamin D deficiency, unspecified
CPT/HCPCS: 36415; 80048; 82306; 82570; 83970; 84156; 85027

== ENCOUNTER → 2021-03-19 14:15 | Outpatient (CLI) | payer MEDICARE, SELFPAY ==
[2020-08-02 07:29] VITALS: BMI 27.9
[2021-03-19 15:40] LABS: Absolute Lymphocyte Count 2.26 X10^3/uL (0.83-4.51); Absolute Neutrophil Count 3.9 X10^3/uL (2.0-7.7); Basophil# 0.03 X10^3/uL; Basophil% 0.4 % (0-1); Eosinophil# 0.06 X10^3/uL; Eosinophils% 0.9 % (0-5); Hematocrit 44.5 % (40-54); Hemoglobin 14.1 g/dL (13.0-16.5); Lymphocyte # 2.26 X10^3/ul (0.83-4.51); Lymphocyte % 33.1 % (19-41); Mean Corp Hgb Conc 31.7 g/dL (32-36); Mean Corpuscular Hgb 28.8 pg (27.0-32.0); Mean Platelet Vol. 11.5 fl (6.2-12.0); Monocyte# 0.61 X10^3/uL; Monocyte% 8.9 % (0-10); NRBC Flagged by Analyzer 0 % (0-5); Neutrophil # 3.85 X10^3/uL (2.7-7.7); Neutrophil % 56.6 % (47-70); Platelet Count 173 K/mm3 (150-450); RBC Distribution Width CV 13.3 % (11.6-14.6); RBC Distribution Width SD 44.7 fl (35.1-43.9); Red Blood Count 4.89 M/mm3 (4.6-6.2); White Blood Count 6.8 K/mm3 (4.4-11.0)
[2021-03-19 15:56] LABS: Vitamin D,25 Hydroxy 57.8 ng/mL
[2021-03-19 16:08] LABS: AST(SGOT) 17 U/L (15-37); Alanine Aminotransfer ALT/SGPT 22 U/L (16-61); Albumin, Serum 3.7 g/dL (3.2-5.0); Alkaline Phosphatase 88 U/L (45-117); Anion Gap 10 (5-15); BUN 21 mg/dL (7-18); BUN/Creat Ratio 15.1 RATIO (10-20); Calcium,Total 8.8 mg/dL (8.5-10.1); Chloride 105 mmol/L (98-107); Cholesterol 227 mg/dL (200); Creatinine, Serum 1.39 mg/dL (0.70-1.30); EST Glomerular Filtration Rate 52 mL/min (>60); Est Glom Filt Rate - Afr Amer 63 mL/min (>60); Globulin 3.8 g/dL (2.2-4.2); Glucose 94 mg/dL (74-106); High Density Lipoprotein 46 mg/dL; Potassium 4.2 mmol/L (3.5-5.1); Protein, Total 7.5 g/dL (6.4-8.2); Sodium Level 139 mmol/L (136-145); Thyroid Stim Hormone (TSH) 0.58 uIU/mL (0.358-3.74); Triglycerides 195 mg/dL; Very Low Density Lipoprotein 39 mg/dL (5-40)
== END ==
PROVIDERS: PCP Family Medicine Geriatric Medicine; Visit Provider Family Medicine Geriatric Medicine
DX: E78.5 Hyperlipidemia, unspecified (principal); I10 Essential (primary) hypertension; E55.9 Vitamin D deficiency, unspecified
CPT/HCPCS: 36415; 80053; 80061; 82306; 84443; 85025

== ENCOUNTER → 2021-05-01 08:36 | Outpatient (CLI) | payer MEDICARE, SELFPAY ==
[2020-08-02 07:29] VITALS: BMI 27.9
[2021-05-01 10:59] LABS: AST(SGOT) 11 U/L (15-37); Alanine Aminotransfer ALT/SGPT 16 U/L (16-61); Albumin, Serum 3.5 g/dL (3.2-5.0); Alkaline Phosphatase 85 U/L (45-117); Bilirubin, Direct 0.21 mg/dL (0.00-0.30); Cholesterol 174 mg/dL (200); Globulin 3.7 g/dL (2.2-4.2); High Density Lipoprotein 47 mg/dL; Protein, Total 7.2 g/dL (6.4-8.2); Triglycerides 128 mg/dL; Very Low Density Lipoprotein 26 mg/dL (5-40)
== END ==
PROVIDERS: PCP Family Medicine Geriatric Medicine; Referring Provider Internal Medicine Cardiovascular Disease; Visit Provider Internal Medicine Cardiovascular Disease
DX: E78.2 Mixed hyperlipidemia (principal); I25.10 Atherosclerotic heart disease of native coronary artery without angina pectoris; Z95.1 Presence of aortocoronary bypass graft
CPT/HCPCS: 36415; 80061; 80076

== ENCOUNTER 2021-09-19 14:34 | Outpatient (CLI) | payer MEDICARE, SELFPAY ==
[2020-08-02 07:29] VITALS: BMI 27.9
[2021-09-19 17:14] LABS: Absolute Lymphocyte Count 2.73 X10^3/uL (0.83-4.51); Absolute Neutrophil Count 4.5 X10^3/uL (2.0-7.7); Basophil# 0.04 X10^3/uL; Basophil% 0.5 % (0-1); Eosinophil# 0.08 X10^3/uL; Hematocrit 41.3 % (40-54); Hemoglobin 13.5 g/dL (13.0-16.5); Lymphocyte # 2.73 X10^3/ul (0.83-4.51); Mean Corp Hgb Conc 32.7 g/dL (32-36); Mean Corpuscular Volume 88.8 fL (80-94); Mean Platelet Vol. 11.8 fl (6.2-12.0); Monocyte# 0.72 X10^3/uL; NRBC Flagged by Analyzer 0 % (0-5); Neutrophil # 4.45 X10^3/uL (2.7-7.7); Neutrophil % 55.4 % (47-70); Platelet Count 168 K/mm3 (150-450); RBC Distribution Width CV 13.4 % (11.6-14.6); RBC Distribution Width SD 43.8 fl (35.1-43.9); Red Blood Count 4.65 M/mm3 (4.6-6.2)
[2021-09-19 18:03] LABS: Vitamin D,25 Hydroxy 83.8 ng/mL
[2021-09-19 18:15] LABS: ALB/GLOB Ratio 1.2 RATIO (0.9-2.4); AST(SGOT) 16 U/L (15-37); Alanine Aminotransfer ALT/SGPT 23 U/L (16-61); Albumin, Serum 3.7 g/dL (3.2-5.0); Alkaline Phosphatase 75 U/L (45-117); Anion Gap 6 (5-15); BUN 22 mg/dL (7-18); BUN/Creat Ratio 14.2 RATIO (10-20); Calcium,Total 8.3 mg/dL (8.5-10.1); Chloride 109 mmol/L (98-107); Cholesterol 162 mg/dL (200); Creatinine, Serum 1.55 mg/dL (0.70-1.30); EST Glomerular Filtration Rate 46 mL/min (>60); Est Glom Filt Rate - Afr Amer 55 mL/min (>60); Globulin 3.2 g/dL (2.2-4.2); Glucose 79 mg/dL (74-106); High Density Lipoprotein 42 mg/dL; Potassium 4.4 mmol/L (3.5-5.1); Protein, Total 6.9 g/dL (6.4-8.2); Sodium Level 139 mmol/L (136-145); Thyroid Stim Hormone (TSH) 0.22 uIU/mL (0.358-3.74); Triglycerides 180 mg/dL; Very Low Density Lipoprotein 36 mg/dL (5-40)
== END 2021-09-19 23:59 | disposition home or self-care (01) ==
LOC: POLAB3 14:35
PROVIDERS: PCP Family Medicine Geriatric Medicine; Visit Provider Family Medicine Geriatric Medicine
DX: E55.9 Vitamin D deficiency, unspecified (principal); E78.5 Hyperlipidemia, unspecified; I10 Essential (primary) hypertension
CPT/HCPCS: 36415; 80053; 80061; 82306; 84443; 85025

== ENCOUNTER → 2021-11-05 | Outpatient (CLI) | payer MEDICARE, SELFPAY ==
[2020-08-02 07:29] VITALS: BMI 27.9
[2021-11-05 15:06] LABS: Mucous, Urine 0 SEEN /hpf (<or=2+); Red Blood Cells-Urine 0 SEEN /hpf (0-5); Squamous Epithelial Cells - UA 0 SEEN /hpf (0-5)
[2021-11-05 17:13] LABS: Hematocrit 41.4 % (40-54); Hemoglobin 13.2 g/dL (13.0-16.5); Mean Corp Hgb Conc 31.9 g/dL (32-36); Mean Corpuscular Hgb 29.3 pg (27.0-32.0); Mean Corpuscular Volume 91.8 fL (80-94); Mean Platelet Vol. 11.3 fl (6.2-12.0); Platelet Count 165 K/mm3 (150-450); RBC Distribution Width CV 13.3 % (11.6-14.6); RBC Distribution Width SD 45.2 fl (35.1-43.9); Red Blood Count 4.51 M/mm3 (4.6-6.2); White Blood Count 7.2 K/mm3 (4.4-11.0)
[2021-11-05 17:15] LABS: Scan Indicated on CBC? Y/N NO
[2021-11-05 17:16] LABS: ERROR FUNCTION FLAG NO; ERROR RESULT FLAG NO; POSITIVE COUNT NO; POSITIVE DIFFERENTIAL NO; POSITIVE MORPHOLOGY NO
[2021-11-05 17:28] LABS: Protein, Urine (Random) 12.3 mg/dL (<11.9); Protein:Creat Ratio 123 mg/g CRE (0-200)
[2021-11-05 17:32] LABS: Vitamin D,25 Hydroxy 69.6 ng/mL
[2021-11-05 17:34] LABS: Color, Urine Yellow (Yellow); Glucose, Dipstick Normal (Normal); Ketone-Dipstick Negative (Negative); Leukocyte Esterase-Dipstick Negative /ul (Negative); Nitrite-Dipstick Negative (Negative); Occult Blood-Urine Negative /ul (Negative); Protein-Dipstick Negative (Negative); Specific Gravity, Urine 1.015 (1.002-1.030); Urine Bilirubin Dipstick Negative (Negative); Urine Clarity Clear (Clear); Urine Urobilinogen Normal (Normal)
[2021-11-05 17:41] LABS: Albumin, Serum 3.6 g/dL (3.2-5.0); BUN 23 mg/dL (7-18); BUN/Creat Ratio 14.6 RATIO (10-20); Calcium,Total 8.5 mg/dL (8.5-10.1); Chloride 108 mmol/L (98-107); Creatinine, Serum 1.57 mg/dL (0.70-1.30); EST Glomerular Filtration Rate 45 mL/min (>60); Est Glom Filt Rate - Afr Amer 55 mL/min (>60); Glucose 85 mg/dL (74-106); Phosphorus 3.3 mg/dL (2.5-4.9); Potassium 4.3 mmol/L (3.5-5.1); Sodium Level 141 mmol/L (136-145); Thyroid Stim Hormone (TSH) 1.02 uIU/mL (0.358-3.74)
[2021-11-05 18:13] LABS: White Blood Cells 0-5 SEEN /hpf (0-5)
[2021-11-05 18:14] LABS: Bacteria RARE /hpf (None Seen)
[2021-11-05 19:55] LABS: PTHIN 60.8 pg/mL (18.4-80.1)
== END | disposition home or self-care (01) ==
LOC: POLAB3 15:02
PROVIDERS: PCP Family Medicine Geriatric Medicine; Visit Provider Family Medicine Geriatric Medicine
DX: E03.9 Hypothyroidism, unspecified (principal); N18.31 Chronic kidney disease, stage 3a; E55.9 Vitamin D deficiency, unspecified
CPT/HCPCS: 36415; 80069; 81001; 82306; 82570; 83970; 84156; 84443; 85027

== ENCOUNTER → 2022-01-06 | Outpatient (CLI) | payer MEDICARE, SELFPAY ==
[2020-08-02 07:29] VITALS: BMI 27.9
[2022-01-06 13:09] LABS: AST(SGOT) 15 U/L (15-37); Alanine Aminotransfer ALT/SGPT 18 U/L (16-61); Albumin, Serum 3.9 g/dL (3.2-5.0); Alkaline Phosphatase 95 U/L (45-117); Bilirubin, Direct 0.12 mg/dL (0.00-0.30); Cholesterol 165 mg/dL (200); Globulin 3.4 g/dL (2.2-4.2); High Density Lipoprotein 47 mg/dL; Protein, Total 7.3 g/dL (6.4-8.2); Triglycerides 152 mg/dL; Very Low Density Lipoprotein 30 mg/dL (5-40)
[2022-01-06 15:56] LABS: PSA,Total- Diagnostic 9.05 ng/mL (0.0-4.0)
[2023-01-01 15:19] LABS: PSA,Total- Diagnostic 8.35 ng/mL (0.0-4.0)
== END | disposition home or self-care (01) ==
LOC: LAB 11:49
PROVIDERS: Internal Medicine Cardiovascular Disease; PCP Family Medicine Geriatric Medicine; Referring Provider Urology; Visit Provider Urology
DX: R97.20 Elevated prostate specific antigen [PSA] (principal); E78.00 Pure hypercholesterolemia, unspecified; E78.2 Mixed hyperlipidemia
CPT/HCPCS: 36415; 80061; 80076; 84153; G0103

== ENCOUNTER → 2022-03-20 | Outpatient (CLI) | payer MEDICARE, SELFPAY ==
[2020-08-02 07:29] VITALS: BMI 27.9
[2022-03-20 14:52] LABS: Absolute Lymphocyte Count 2.55 X10^3/uL (0.83-4.51); Absolute Neutrophil Count 4.5 X10^3/uL (2.0-7.7); Basophil# 0.03 X10^3/uL; Basophil% 0.4 % (0-1); Eosinophil# 0.08 X10^3/uL; Hematocrit 42.1 % (40-54); Hemoglobin 13.4 g/dL (13.0-16.5); Lymphocyte # 2.55 X10^3/ul (0.83-4.51); Lymphocyte % 33.1 % (19-41); Mean Corp Hgb Conc 31.8 g/dL (32-36); Mean Corpuscular Volume 91.1 fL (80-94); Mean Platelet Vol. 11.6 fl (6.2-12.0); Monocyte# 0.58 X10^3/uL; Monocyte% 7.5 % (0-10); NRBC Flagged by Analyzer 0 % (0-5); Neutrophil # 4.45 X10^3/uL (2.7-7.7); Neutrophil % 57.7 % (47-70); Platelet Count 172 K/mm3 (150-450); RBC Distribution Width CV 13.6 % (11.6-14.6); RBC Distribution Width SD 45.7 fl (35.1-43.9); Red Blood Count 4.62 M/mm3 (4.6-6.2); White Blood Count 7.7 K/mm3 (4.4-11.0)
[2022-03-20 16:00] LABS: Vitamin D,25 Hydroxy 54.7 ng/mL
[2022-03-20 16:07] LABS: ALB/GLOB Ratio 1.1 RATIO (0.9-2.4); AST(SGOT) 13 U/L (15-37); Alanine Aminotransfer ALT/SGPT 16 U/L (16-61); Albumin, Serum 3.5 g/dL (3.2-5.0); Alkaline Phosphatase 79 U/L (45-117); Anion Gap 7 (5-15); BUN 27 mg/dL (7-18); BUN/Creat Ratio 20.3 RATIO (10-20); Calcium,Total 8.6 mg/dL (8.5-10.1); Chloride 110 mmol/L (98-107); Cholesterol 147 mg/dL (200); Creatinine, Serum 1.33 mg/dL (0.70-1.30); EST Glomerular Filtration Rate 55 mL/min (>60); Est Glom Filt Rate - Afr Amer 66 mL/min (>60); Globulin 3.2 g/dL (2.2-4.2); Glucose 117 mg/dL (74-106); High Density Lipoprotein 45 mg/dL; Potassium 3.9 mmol/L (3.5-5.1); Protein, Total 6.7 g/dL (6.4-8.2); Sodium Level 143 mmol/L (136-145); Thyroid Stim Hormone (TSH) 0.86 uIU/mL (0.358-3.74); Triglycerides 252 mg/dL; Very Low Density Lipoprotein 50 mg/dL (5-40)
== END | disposition home or self-care (01) ==
LOC: POLAB3 09:55
PROVIDERS: PCP Family Medicine Geriatric Medicine; Visit Provider Family Medicine Geriatric Medicine
DX: E78.5 Hyperlipidemia, unspecified (principal); I10 Essential (primary) hypertension; E55.9 Vitamin D deficiency, unspecified
CPT/HCPCS: 36415; 80053; 80061; 82306; 84443; 85025

== ENCOUNTER → 2022-09-22 | Outpatient (CLI) | payer MEDICARE, SELFPAY ==
[2020-08-02 07:29] VITALS: BMI 27.9
[2022-09-22 17:46] LABS: Absolute Lymphocyte Count 3.04 X10^3/uL (0.83-4.51); Absolute Neutrophil Count 4.2 X10^3/uL (2.0-7.7); Basophil# 0.05 X10^3/uL; Basophil% 0.6 % (0-1); Eosinophil# 0.09 X10^3/uL; Eosinophils% 1.1 % (0-5); Hematocrit 45.3 % (40-54); Hemoglobin 14.1 g/dL (13.0-16.5); Lymphocyte # 3.04 X10^3/ul (0.83-4.51); Lymphocyte % 37.9 % (19-41); Mean Corp Hgb Conc 31.1 g/dL (32-36); Mean Corpuscular Volume 93.2 fL (80-94); Mean Platelet Vol. 11.5 fl (6.2-12.0); Monocyte# 0.66 X10^3/uL; Monocyte% 8.2 % (0-10); NRBC Flagged by Analyzer 0 % (0-5); Neutrophil # 4.16 X10^3/uL (2.7-7.7); Neutrophil % 51.8 % (47-70); Platelet Count 197 K/mm3 (150-450); RBC Distribution Width CV 13.3 % (11.6-14.6); RBC Distribution Width SD 45.3 fl (35.1-43.9); Red Blood Count 4.86 M/mm3 (4.6-6.2)
[2022-09-22 17:53] LABS: Vitamin D,25 Hydroxy 44.9 ng/mL
[2022-09-22 18:23] LABS: ALB/GLOB Ratio 1.1 RATIO (0.9-2.4); AST(SGOT) 17 U/L (15-37); Alanine Aminotransfer ALT/SGPT 18 U/L (16-61); Albumin, Serum 3.8 g/dL (3.2-5.0); Alkaline Phosphatase 89 U/L (45-117); Anion Gap 6 (5-15); BUN 25 mg/dL (7-18); BUN/Creat Ratio 17.9 RATIO (10-20); Bilirubin, Direct 0.18 mg/dL (0.00-0.30); Calcium,Total 8.7 mg/dL (8.5-10.1); Chloride 108 mmol/L (98-107); Cholesterol 170 mg/dL (200); EST Glomerular Filtration Rate 51 mL/min (>60); Est Glom Filt Rate - Afr Amer 62 mL/min (>60); Globulin 3.4 g/dL (2.2-4.2); Glucose 87 mg/dL (74-106); High Density Lipoprotein 51 mg/dL; Potassium 4.4 mmol/L (3.5-5.1); Protein, Total 7.2 g/dL (6.4-8.2); Sodium Level 139 mmol/L (136-145); Thyroid Stim Hormone (TSH) 0.78 uIU/mL (0.358-3.74); Triglycerides 134 mg/dL; Very Low Density Lipoprotein 27 mg/dL (5-40)
== END | disposition home or self-care (01) ==
LOC: POLAB3 13:33
PROVIDERS: Internal Medicine Cardiovascular Disease; PCP Family Medicine Geriatric Medicine; Visit Provider Family Medicine Geriatric Medicine
DX: E55.9 Vitamin D deficiency, unspecified (principal); I10 Essential (primary) hypertension; E78.00 Pure hypercholesterolemia, unspecified
CPT/HCPCS: 36415; 80053; 80061; 82248; 82306; 84443; 85025

== ENCOUNTER → 2022-11-13 | Outpatient (CLI) | payer MEDICARE, SELFPAY ==
[2020-08-02 07:29] VITALS: BMI 27.9
[2022-11-13 12:55] LABS: Hematocrit 46.5 % (40-54); Hemoglobin 15.1 g/dL (13.0-16.5); Mean Corp Hgb Conc 32.5 g/dL (32-36); Mean Corpuscular Hgb 29.2 pg (27.0-32.0); Mean Corpuscular Volume 89.9 fL (80-94); Mean Platelet Vol. 10.8 fl (6.2-12.0); Platelet Count 176 K/mm3 (150-450); RBC Distribution Width CV 13.2 % (11.6-14.6); Red Blood Count 5.17 M/mm3 (4.6-6.2); White Blood Count 7.9 K/mm3 (4.4-11.0)
[2022-11-13 13:05] LABS: Protein, Urine (Random) < 6.0 mg/dL (<11.9); Protein:Creat Ratio 159 mg/g CRE (0-200)
[2022-11-13 13:11] LABS: Albumin, Serum 3.8 g/dL (3.2-5.0); BUN 21 mg/dL (7-18); BUN/Creat Ratio 13.9 RATIO (10-20); Calcium,Total 8.8 mg/dL (8.5-10.1); Chloride 110 mmol/L (98-107); Creatinine, Serum 1.51 mg/dL (0.70-1.30); EST Glomerular Filtration Rate 47 mL/min (>60); Est Glom Filt Rate - Afr Amer 57 mL/min (>60); Glucose 83 mg/dL (74-106); Phosphorus 2.8 mg/dL (2.5-4.9); Potassium 4.5 mmol/L (3.5-5.1); Sodium Level 142 mmol/L (136-145)
[2022-11-13 13:12] LABS: PTHIN 79.6 pg/mL (18.4-80.1)
[2022-11-13 13:15] LABS: Vitamin D,25 Hydroxy 57.2 ng/mL
== END | disposition home or self-care (01) ==
LOC: LAB 12:15
PROVIDERS: PCP Family Medicine Geriatric Medicine; Referring Provider Internal Medicine Nephrology; Visit Provider Internal Medicine Nephrology
DX: N18.31 Chronic kidney disease, stage 3a (principal); N25.81 Secondary hyperparathyroidism of renal origin; E55.9 Vitamin D deficiency, unspecified
CPT/HCPCS: 36415; 80069; 82306; 82570; 83970; 84156; 85027

== ENCOUNTER → 2023-01-01 | Outpatient (CLI) | payer MEDICARE, SELFPAY ==
[2020-08-02 07:29] VITALS: BMI 27.9
== END | disposition home or self-care (01) ==
LOC: LAB 13:33
PROVIDERS: PCP Family Medicine Geriatric Medicine; Referring Provider Urology; Visit Provider Urology
DX: R97.20 Elevated prostate specific antigen [PSA] (principal)

== ENCOUNTER → 2023-03-18 | Outpatient (CLI) | payer MEDICARE, SELFPAY ==
[2020-08-02 07:29] VITALS: BMI 27.9
--- NOTE | 2023-03-18 14:11 | RAD_ITS ---
STUDY: X-RAY - LEFT KNEE REASON FOR EXAM: Male, 82 years old. KNEE PAIN. No history of trauma. TECHNIQUE: 4 view(s) of the knee. COMPARISON: None. FINDINGS: Normal visualized distal femur. Normal visualized proximal tibia and fibula. Normal proximal tibiofibular articulation. There is severe degenerative arthrosis of the medial femorotibial compartment with severe joint space narrowing. Normal lateral femorotibial compartment. There is mild degenerative arthrosis of the patellofemoral articulation. Moderate-sized joint effusion. RAD/Knee 4 or More Views IMPRESSION: Degenerative arthrosis. Moderate size joint effusion. Electronically Signed: Gatito Funez MD at 15:04 EDT ,
[2023-03-18 14:51] LABS: ALB/GLOB Ratio 1.1 RATIO (0.9-2.4); AST(SGOT) 12 U/L (15-37); Alanine Aminotransfer ALT/SGPT 21 U/L (16-61); Albumin, Serum 3.7 g/dL (3.2-5.0); Alkaline Phosphatase 75 U/L (45-117); Anion Gap 5 (5-15); BUN 29 mg/dL (7-18); BUN/Creat Ratio 19.3 RATIO (10-20); Calcium,Total 8.8 mg/dL (8.5-10.1); Chloride 111 mmol/L (98-107); Cholesterol 164 mg/dL (200); EST Glomerular Filtration Rate 47 mL/min (>60); Est Glom Filt Rate - Afr Amer 57 mL/min (>60); Globulin 3.4 g/dL (2.2-4.2); Glucose 108 mg/dL (74-106); High Density Lipoprotein 48 mg/dL; Potassium 4.4 mmol/L (3.5-5.1); Protein, Total 7.1 g/dL (6.4-8.2); Sodium Level 142 mmol/L (136-145); Thyroid Stim Hormone (TSH) 0.81 uIU/mL (0.358-3.74); Triglycerides 136 mg/dL; Very Low Density Lipoprotein 27 mg/dL (5-40)
[2023-03-18 14:55] LABS: Absolute Lymphocyte Count 2.72 X10^3/uL (0.83-4.51); Absolute Neutrophil Count 3.7 X10^3/uL (2.0-7.7); Basophil# 0.03 X10^3/uL; Basophil% 0.4 % (0-1); Eosinophil# 0.08 X10^3/uL; Eosinophils% 1.1 % (0-5); Hematocrit 44.3 % (40-54); Hemoglobin 14.1 g/dL (13.0-16.5); Lymphocyte # 2.72 X10^3/ul (0.83-4.51); Lymphocyte % 37.1 % (19-41); Mean Corp Hgb Conc 31.8 g/dL (32-36); Mean Corpuscular Hgb 29.2 pg (27.0-32.0); Mean Corpuscular Volume 91.7 fL (80-94); Mean Platelet Vol. 11.2 fl (6.2-12.0); Monocyte# 0.83 X10^3/uL; Monocyte% 11.3 % (0-10); NRBC Flagged by Analyzer 0 % (0-5); Neutrophil # 3.66 X10^3/uL (2.7-7.7); Neutrophil % 49.8 % (47-70); Platelet Count 166 K/mm3 (150-450); RBC Distribution Width CV 13.8 % (11.6-14.6); RBC Distribution Width SD 46.7 fl (35.1-43.9); Red Blood Count 4.83 M/mm3 (4.6-6.2); White Blood Count 7.3 K/mm3 (4.4-11.0)
== END | disposition home or self-care (01) ==
LOC: POLAB3 13:26
PROVIDERS: PCP Family Medicine Geriatric Medicine; Visit Provider Family Medicine Geriatric Medicine
DX: I10 Essential (primary) hypertension (principal); E55.9 Vitamin D deficiency, unspecified; E78.5 Hyperlipidemia, unspecified; M25.562 Pain in left knee
CPT/HCPCS: 36415; 73564; 80053; 80061; 82306; 84443; 85025

== ENCOUNTER → 2023-04-23 | Outpatient (CLI) | payer MEDICARE, SELFPAY ==
[2020-08-02 07:29] VITALS: BMI 27.9
[2023-04-23 16:48] LABS: Absolute Lymphocyte Count 2.28 X10^3/uL (0.83-4.51); Absolute Neutrophil Count 5.9 X10^3/uL (2.0-7.7); Basophil# 0.04 X10^3/uL; Basophil% 0.4 % (0-1); Eosinophil# 0.01 X10^3/uL; Eosinophils% 0.1 % (0-5); Hematocrit 37.4 % (40-54); Hemoglobin 11.9 g/dL (13.0-16.5); Lymphocyte # 2.28 X10^3/ul (0.83-4.51); Lymphocyte % 24.5 % (19-41); Mean Corp Hgb Conc 31.8 g/dL (32-36); Mean Corpuscular Hgb 28.2 pg (27.0-32.0); Mean Corpuscular Volume 88.6 fL (80-94); Mean Platelet Vol. 10.4 fl (6.2-12.0); Monocyte# 1.05 X10^3/uL; Monocyte% 11.3 % (0-10); NRBC Flagged by Analyzer 0 % (0-5); Neutrophil # 5.91 X10^3/uL (2.7-7.7); Neutrophil % 63.4 % (47-70); Platelet Count 209 K/mm3 (150-450); RBC Distribution Width CV 13.4 % (11.6-14.6); RBC Distribution Width SD 43.5 fl (35.1-43.9); Red Blood Count 4.22 M/mm3 (4.6-6.2); White Blood Count 9.3 K/mm3 (4.4-11.0)
[2023-04-23 17:05] LABS: Erythrocyte Sedimentation Rate 85 mm/hr (0-20)
[2023-04-23 17:16] LABS: ALB/GLOB Ratio 0.6 RATIO (0.9-2.4); AST(SGOT) 28 U/L (15-37); Alanine Aminotransfer ALT/SGPT 39 U/L (16-61); Albumin, Serum 2.7 g/dL (3.2-5.0); Alkaline Phosphatase 166 U/L (45-117); Anion Gap 5 (5-15); BUN 21 mg/dL (7-18); BUN/Creat Ratio 12.8 RATIO (10-20); Calcium,Total 8.2 mg/dL (8.5-10.1); Chloride 103 mmol/L (98-107); Creatinine, Serum 1.64 mg/dL (0.70-1.30); EST Glomerular Filtration Rate 43 mL/min (>60); Est Glom Filt Rate - Afr Amer 52 mL/min (>60); Globulin 4.2 g/dL (2.2-4.2); Glucose 110 mg/dL (74-106); Potassium 3.9 mmol/L (3.5-5.1); Protein, Total 6.9 g/dL (6.4-8.2); Sodium Level 134 mmol/L (136-145); Thyroid Stim Hormone (TSH) 0.99 uIU/mL (0.358-3.74)
[2023-04-23 17:21] LABS: Lactic Acid 1.1 mmol/L (0.4-1.9)
== END | disposition home or self-care (01) ==
PROVIDERS: PCP Family Medicine Geriatric Medicine; Visit Provider Family Medicine Geriatric Medicine
DX: R53.83 Other fatigue (principal); N18.31 Chronic kidney disease, stage 3a; R80.9 Proteinuria, unspecified
CPT/HCPCS: 36415; 80053; 83605; 84443; 85025; 85652; 86140; 87040; 87086

== ENCOUNTER → 2023-04-23 | Outpatient (CLI) | payer MEDICARE, SELFPAY ==
[2020-08-02 07:29] VITALS: BMI 27.9
--- NOTE | 2023-04-23 17:05 | RAD_ITS ---
INDICATION: COUGH EXAMINATION/TECHNIQUE: X-RAY - XR Chest 2 Views COMPARISON: May 09, 2020 FINDINGS: LINES/DEVICES: Stable sternotomy wires. LUNGS: No consolidation, edema or effusion. Mild right basilar interstitial prominence. No pneumothorax. MEDIASTINUM AND CARDIOVASCULAR STRUCTURES: Cardiac silhouette not enlarged. Central airways and mediastinal contour are unremarkable. BONES AND SOFT TISSUES: Degenerative vertebral changes. RAD/Chest PA and Lateral IMPRESSION: Right basilar interstitial prominence. Electronically Signed: Nikhil Cerda DO at 18:22 EST ,
== END | disposition home or self-care (01) ==
LOC: RAD 16:59
PROVIDERS: PCP Family Medicine Geriatric Medicine; Visit Provider Family Medicine Geriatric Medicine
DX: R05.9 Cough, unspecified (principal)
CPT/HCPCS: 71046

== ENCOUNTER → 2023-09-09 | Outpatient (CLI) | payer MEDICARE, SELFPAY ==
[2020-08-02 07:29] VITALS: BMI 27.9
[2023-09-09 10:59] LABS: Hematocrit 44.5 % (40-54); Hemoglobin 14.2 g/dL (13.0-16.5); Mean Corp Hgb Conc 31.9 g/dL (32-36); Mean Corpuscular Hgb 28.7 pg (27.0-32.0); Mean Corpuscular Volume 90.1 fL (80-94); Mean Platelet Vol. 11.2 fl (6.2-12.0); Platelet Count 165 K/mm3 (150-450); RBC Distribution Width CV 13.2 % (11.6-14.6); RBC Distribution Width SD 43.6 fl (35.1-43.9); Red Blood Count 4.94 M/mm3 (4.6-6.2); White Blood Count 8.7 K/mm3 (4.4-11.0)
[2023-09-09 11:42] LABS: ALB/GLOB Ratio 1.1 RATIO (0.9-2.4); AST(SGOT) 14 U/L (15-37); Alanine Aminotransfer ALT/SGPT 17 U/L (16-61); Albumin, Serum 3.7 g/dL (3.2-5.0); Alkaline Phosphatase 77 U/L (45-117); Anion Gap 4 (5-15); BUN 24 mg/dL (7-18); BUN/Creat Ratio 16.6 RATIO (10-20); CPK Total, Creatine Kinase 61 U/L (39-308); Chloride 109 mmol/L (98-107); Cholesterol 184 mg/dL (200); Creatinine, Serum 1.45 mg/dL (0.70-1.30); EST Glomerular Filtration Rate 49 mL/min (>60); Est Glom Filt Rate - Afr Amer 60 mL/min (>60); Globulin 3.3 g/dL (2.2-4.2); Glucose 96 mg/dL (74-106); High Density Lipoprotein 49 mg/dL; Potassium 4.8 mmol/L (3.5-5.1); Sodium Level 141 mmol/L (136-145); Thyroid Stim Hormone (TSH) 0.64 uIU/mL (0.358-3.74); Triglycerides 136 mg/dL; Very Low Density Lipoprotein 27 mg/dL (5-40)
== END | disposition home or self-care (01) ==
LOC: LAB 10:17
PROVIDERS: PCP Family Medicine Geriatric Medicine; Referring Provider Internal Medicine Cardiovascular Disease; Visit Provider Internal Medicine Cardiovascular Disease
DX: R06.00 Dyspnea, unspecified (principal); R07.9 Chest pain, unspecified; R53.83 Other fatigue; I25.10 Atherosclerotic heart disease of native coronary artery without angina pectoris; I10 Essential (primary) hypertension
CPT/HCPCS: 36415; 80053; 80061; 82550; 84443; 85027

== ENCOUNTER → 2023-09-22 | Outpatient (CLI) | payer MEDICARE, SELFPAY ==
[2020-08-02 07:29] VITALS: BMI 27.9
--- NOTE | 2023-09-22 08:52 | AAVD_ITS ---
Reason For Study: AAA Aorta Measurements Aorta Doppler Measurements Proximal aorta measures2.07 x .2.22cm. in cross- Peak systolic flow velocities within the proximal sectional axis. aorta measure 48.7 cm/sec. Proximal aorta measures2.14cm. in longitudinal Peak systolic flow velocities within the mid aorta axis. measure 66.9 cm/sec. Mid aorta measures2.57 x 3.07cm. in cross- Peak systolic flow velocities within the distal sectional axis. aorta measure 70.5 cm/sec. Mid aorta measures2.7cm. in longitudinal axis. Distal aorta measures2.44 x 2.48cm. in cross- sectional axis. Distal aorta measures2.41cm. in longitudinal axis. Multiple large nonvascularized hypoechoic structures noted in the liver,. Left Iliac Artery Left iliac artery measures 1.05 x 1.05 cm. in the cross-sectional axis. Left iliac artery measures 1.12 cm. in the longitudinal axis. Peak systolic velocity in the left iliac artery measures 150.1 cm/sec. Right Iliac Artery Right iliac artery measures 1.08 x 1.44 cm. in the cross-sectional axis. Right iliac artery measures 1.06 cm. in the longitudinal axis. Peak systolic velocity in the right iliac artery measures 130.3 cm/sec. 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
== END | disposition home or self-care (01) ==
LOC: CVS 08:49
PROVIDERS: PCP Family Medicine Geriatric Medicine; Referring Provider Internal Medicine Cardiovascular Disease; Visit Provider Internal Medicine Cardiovascular Disease
DX: I70.0 Atherosclerosis of aorta (principal)
CPT/HCPCS: 93978

== ENCOUNTER → 2023-09-28 | Outpatient (CLI) | payer MEDICARE, SELFPAY ==
[2020-08-02 07:29] VITALS: BMI 27.9
[2023-09-28 15:21] LABS: Absolute Lymphocyte Count 3.84 X10^3/uL (0.83-4.51); Absolute Neutrophil Count 3.9 X10^3/uL (2.0-7.7); Basophil# 0.05 X10^3/uL; Basophil% 0.6 % (0-1); Eosinophil# 0.26 X10^3/uL; Hematocrit 43.3 % (40-54); Hemoglobin 13.8 g/dL (13.0-16.5); Lymphocyte # 3.84 X10^3/ul (0.83-4.51); Mean Corp Hgb Conc 31.9 g/dL (32-36); Mean Corpuscular Hgb 28.5 pg (27.0-32.0); Mean Corpuscular Volume 89.5 fL (80-94); Mean Platelet Vol. 11.4 fl (6.2-12.0); Monocyte# 0.65 X10^3/uL; Monocyte% 7.5 % (0-10); NRBC Flagged by Analyzer 0 % (0-5); Neutrophil % 44.7 % (47-70); Platelet Count 161 K/mm3 (150-450); RBC Distribution Width CV 13.6 % (11.6-14.6); RBC Distribution Width SD 44.6 fl (35.1-43.9); Red Blood Count 4.84 M/mm3 (4.6-6.2); White Blood Count 8.7 K/mm3 (4.4-11.0)
[2023-09-28 15:38] LABS: Vitamin D,25 Hydroxy 55.5 ng/mL
[2023-09-28 15:49] LABS: ALB/GLOB Ratio 1.1 RATIO (0.9-2.4); AST(SGOT) 18 U/L (15-37); Alanine Aminotransfer ALT/SGPT 18 U/L (16-61); Albumin, Serum 3.7 g/dL (3.2-5.0); Alkaline Phosphatase 70 U/L (45-117); Anion Gap 5 (5-15); BUN 28 mg/dL (7-18); Calcium,Total 9.1 mg/dL (8.5-10.1); Chloride 111 mmol/L (98-107); Cholesterol 183 mg/dL (200); Creatinine, Serum 1.47 mg/dL (0.70-1.30); EST Glomerular Filtration Rate 49 mL/min (>60); Est Glom Filt Rate - Afr Amer 59 mL/min (>60); Globulin 3.5 g/dL (2.2-4.2); Glucose 82 mg/dL (74-106); High Density Lipoprotein 48 mg/dL; Potassium 4.3 mmol/L (3.5-5.1); Protein, Total 7.2 g/dL (6.4-8.2); Sodium Level 143 mmol/L (136-145); Thyroid Stim Hormone (TSH) 0.84 uIU/mL (0.358-3.74); Triglycerides 141 mg/dL; Very Low Density Lipoprotein 28 mg/dL (5-40)
== END | disposition home or self-care (01) ==
LOC: POLAB3 13:04
PROVIDERS: PCP Family Medicine Geriatric Medicine; Visit Provider Family Medicine Geriatric Medicine
DX: I10 Essential (primary) hypertension (principal); E55.9 Vitamin D deficiency, unspecified; E78.5 Hyperlipidemia, unspecified
CPT/HCPCS: 36415; 80053; 80061; 82306; 84443; 85025

== ENCOUNTER → 2023-10-29 | Outpatient (CLI) | payer MEDICARE, SELFPAY ==
[2020-08-02 07:29] VITALS: BMI 27.9
--- NOTE | 2023-10-29 06:42 | ECHOCS_ITS ---
Reason For Study: Chest Pain Procedure This was a 2D Doppler, Color Flow transthoracic echocardiogram. The study was technically difficult. Contrast injection was performed. Exam performed in department. Left Ventricle Normal LV size. The estimated ejection fraction is 65 %. No evidence for diastolic dysfunction. No regional wall motion abnormalities noted. Right Ventricle Normal RV size. Normal systolic function. Atria The left and right atria are normal. No doppler evidence for ASD. Bubble contrast study negative for right to left interatrial shunt. Mitral Valve There is moderate mitral annular calcification. There is no mitral valve stenosis. Mild (1+) mitral valve insufficiency. Tricuspid Valve There is no tricuspid stenosis. Trivial tricuspid valve insufficiency. Pulmonary artery systolic pressure is 30 mmHg. Aortic Valve Trisinus/trileaflet aortic valve. There is no aortic stenosis. Trivial aortic valve insufficiency. Pulmonic Valve There is no pulmonic valvular stenosis. No pulmonic valve insufficiency. Great Vessels Normal aortic root. Pericardium/Pleural No pericardial effusion. Medication 22 gauge I.V. with prn adaptor inserted into left arm. Diluted definity 1.5ml given slow IV push to enhance endocardial definition. Performed a rapid injection of agitated mix of 9 cc saline and 1cc air to assess for atrial septal defect. MMode/2D Measurements & Calculations LVIDd: 4.4 cm IVSd: 1.5 cm Ao root diam: 3.3 cm LVIDs: 2.9 cm LVPWd: 1.5 cm LA dimension: 4.5 cm RVDd: 3.5 cm FS: 35.2 % LAV(MOD-bp): 62.1 ml LVAd ap4: 32.7 cm2 SV(MOD-sp4): 66.9 ml LAV(MOD-bp) Indexed: 31.0 ml/m2 LVLd ap4: 7.9 cm LAV(MOD-sp2): 58.3 ml EDV(MOD-sp4): 109.5 ml LAV(MOD-sp4): 59.9 ml EDV(sp4-el): 114.4 ml LVAs ap4: 18.3 cm2 LVLs ap4: 6.5 cm ESV(MOD-sp4): 42.7 ml ESV(sp4-el): 43.7 ml EF(MOD-sp4): 61.0 % EF(sp4-el): 61.8 % SV(sp4-el): 70.8 ml LA A4 area: 21.6 cm2 RA A4 area: 16.4 cm2 TAPSE: 1.2 cm Time Measurements MV dec time: 0.24 sec Doppler Measurements & Calculations MV E max andrés: 71.6 cm/sec Lat Peak E' Andrés: 11.2 cm/sec Med Peak E' Andrés: 7.3 cm/sec MV A max andrés: 82.1 cm/sec E/E' lat: 6.4 E/E' med: 9.8 MV E/A: 0.87 MV V2 max: 97.2 cm/sec MV P1/2t max andrés: 81.9 cm/sec Ao V2 max: 155.8 cm/sec MV max P.8 mmHg MV P1/2t: 83.3 msec Ao max P.7 mmHg MV V2 mean: 45.4 cm/sec Ao V2 mean: 105.2 cm/sec MV mean P.0 mmHg MV dec slope: 287.8 cm/sec2 Ao mean P.2 mmHg MV V2 VTI: 33.6 cm MVA(P1/2t): 2.6 cm2 Ao V2 VTI: 38.5 cm AV (velocity ratio): 0.73 LV V1 max: 123.0 cm/sec MR max andrés: 584.2 cm/sec PA V2 max: 76.2 cm/sec LV V1 max P.0 mmHg MR max P.7 mmHg LV V1 mean P.2 mmHg MR mean andrés: 474.8 cm/sec LV V1 mean: 82.8 cm/sec MR mean P.0 mmHg LV V1 VTI: 28.1 cm MR VTI: 237.3 cm TR max andrés: 253.1 cm/sec TR max P.6 mmHg ECHO/Echo Complete W/ Contrast Interpretation Summary The estimated ejection fraction is 65 %. No evidence for diastolic dysfunction. Mild (1+) mitral valve insufficiency. Trivial aortic valve insufficiency. Ordering Physician: Christian, Omid Referring Physician: Ruben Sim Chi Performed By: Eduardo Saeed RCS
--- NOTE | 2023-11-02 14:25 | STRESSREP_ITS ---
Stress Test Report Date: 10/29/2023 Procedure: Pharmacologic stress nuclear imaging study Indications: Dyspnea, chest pain Consent: Per the patient Procedure: The patient underwent pharmacologic (Regadenoson) evaluation with a peak heart rate of 71 beats per minute (52%predicted maximal heart rate) and a peak blood pressure of 138/70 mmHg. The baseline ECG demonstrated normal sinus rhythm. EKG during lexiscan infusion revealed no significant ischemic changes. EKG post infusion revealed no significant ischemic changes [There were no cardiac dysrhythmias pretest, during pharmacologic infusion, or recovery]. [There was no complaint of chest discomfort during pharmacologic infusion or recovery]. The examination was discontinued secondary to completion of protocol. Impression: 1. Lexiscan stress test test is negative for Lexiscan infusion induced EKG changes of ischemia. 2. Lexiscan stress test test is is negative for Lexiscan infusion induced chest pain. 3. Results of the nuclear portion of the test is as below Myocardial perfusion imaging study: Technique: The patient was injected with 12 millicuries of technetium 99m Cardiolite and subsequently rest SPECT Cardiolite nuclear imaging was obtained in the horizontal long, vertical long, and short axis views. The patient underwent pharmacologic [Regadenoson 0.4mg] evaluation. Please see above for details. The patient was injected with 36 millicuries of technetium 99m Cardiolite and subsequently stress SPECT Cardiolite nuclear imaging was obtained in the horizon boo long, vertical long, and short axis views. A gated Cardiolite study at peak stress was obtained. Interpretation: Rest and stress SPECT Cardiolite nuclear imaging status post realignment, norm alization, and attenuation correction demonstrate no evidence of significant ischemia or infarction. Gated images reveal no significant regional wall motion abnormalities. The reported LVEF is 62%. Impression: 1. There is no evidence of significant ischemia or infarction. 2. Estimated ejection fraction is 62 percent. This note was generated with [employer] software. It may contain incorrect words, spelling, and punctuation that were not noted in checking the note before signing.
== END | disposition home or self-care (01) ==
LOC: CVS 06:41
PROVIDERS: PCP Family Medicine Geriatric Medicine; Referring Provider Internal Medicine Cardiovascular Disease; Visit Provider Internal Medicine Cardiovascular Disease
DX: R07.9 Chest pain, unspecified (principal); R53.83 Other fatigue; I25.10 Atherosclerotic heart disease of native coronary artery without angina pectoris; R06.00 Dyspnea, unspecified; I10 Essential (primary) hypertension; R94.39 Abnormal result of other cardiovascular function study
CPT/HCPCS: 78452; 93017; 93306; A9500; Q9957; A4216; C8929; J2785

== ENCOUNTER → 2024-01-15 | Outpatient (CLI) | payer MEDICARE, SELFPAY ==
[2020-08-02 07:29] VITALS: BMI 27.9
[2024-01-15 10:53] LABS: PSA,Total- Diagnostic 9.03 ng/mL (0.0-4.0)
== END | disposition home or self-care (01) ==
LOC: LAB 09:46
PROVIDERS: PCP Family Medicine Geriatric Medicine; Referring Provider Urology; Visit Provider Urology
DX: N40.1 Benign prostatic hyperplasia with lower urinary tract symptoms (principal)
CPT/HCPCS: 36415; 84153

== ENCOUNTER → 2024-03-25 | Outpatient (CLI) | payer MEDICARE, SELFPAY ==
[2020-08-02 07:29] VITALS: BMI 27.9
--- NOTE | 2024-03-25 08:34 | AAVD_ITS ---
Reason For Study: AAA Aorta Measurements Aorta Doppler Measurements Proximal aorta measures2.56 x 2.37cm. in cross- Peak systolic flow velocities within the proximal sectional axis. aorta measure 79.6 cm/sec. Proximal aorta measures2.53cm. in longitudinal Peak systolic flow velocities within the mid aorta axis. measure 49.3 cm/sec. Mid aorta measures2.21 x 2.34cm. in cross- Peak systolic flow velocities within the distal sectional axis. aorta measure 65.8 cm/sec. Mid aorta measures2.23cm. in longitudinal axis. Distal aorta measures2.91 x 2.70cm. in cross- sectional axis. Distal aorta measures2.80cm. in longitudinal axis. Anechoic nonvascularized area measuring approximately 6.9cm x 7.3cm noted in liver. Left Iliac Artery Left iliac artery measures 1.02 x 1.04 cm. in the cross-sectional axis. Left iliac artery measures 1.01 cm. in the longitudinal axis. Peak systolic velocity in the left iliac artery measures 106.0 cm/sec. Right Iliac Artery Right iliac artery measures 1.25 x 1.22 cm. in the cross-sectional axis. Right iliac artery measures 1.27 cm. in the longitudinal axis. Peak systolic velocity in the right iliac artery measures 111.2 cm/sec. VL/Abd Aortic/IVC Duplex scan Interpretation Summary Aorta patent with ectasia to 2.91 cm Bilateral iliac arteries patent, normal caliber Incidental finding, anechoic nonvascularized area measuring approximately 6.9cm x 7.3cm noted in liver Ordering Physician: Omid Gonzales Referring Physician: Ruben Sim Chi Performed By: Armin Chang RVT
== END | disposition home or self-care (01) ==
LOC: CVS 08:34
PROVIDERS: PCP Family Medicine Geriatric Medicine; Referring Provider Internal Medicine Cardiovascular Disease; Visit Provider Internal Medicine Cardiovascular Disease
DX: I10 Essential (primary) hypertension (principal)
CPT/HCPCS: 93978

== ENCOUNTER → 2024-03-30 | Outpatient (CLI) | payer MEDICARE, SELFPAY ==
[2020-08-02 07:29] VITALS: BMI 27.9
[2024-03-30 13:38] LABS: Absolute Neutrophil Count 4.7 X10^3/uL (2.0-7.7); Basophil# 0.06 X10^3/uL; Basophil% 0.5 % (0-1); Eosinophil# 0.06 X10^3/uL; Eosinophils% 0.5 % (0-5); Hematocrit 45.7 % (40-54); Hemoglobin 14.8 g/dL (13.0-16.5); Lymphocyte % 46.5 % (19-41); Mean Corp Hgb Conc 32.4 g/dL (32-36); Mean Corpuscular Hgb 29.1 pg (27.0-32.0); Monocyte# 0.97 X10^3/uL; Monocyte% 8.9 % (0-10); NRBC Flagged by Analyzer 0 % (0-5); Neutrophil # 4.74 X10^3/uL (2.7-7.7); Neutrophil % 43.3 % (47-70); POSITIVE DIFFERENTIAL YES; POSITIVE MORPHOLOGY YES; Platelet Count 159 K/mm3 (150-450); RBC Distribution Width CV 13.4 % (11.6-14.6); RBC Distribution Width SD 44.1 fl (35.1-43.9); Red Blood Count 5.08 M/mm3 (4.6-6.2)
[2024-03-30 13:54] LABS: Differential Indicated SCAN CRITERIA MET
[2024-03-30 13:57] LABS: Differential Comment SCANNED; Reactive Lymphocyte 3+
[2024-03-30 14:15] LABS: Bilirubin, Direct 0.18 mg/dL (0.00-0.30)
[2024-03-30 14:20] LABS: ALB/GLOB Ratio 1.1 RATIO (0.9-2.4); AST(SGOT) 15 U/L (15-37); Alanine Aminotransfer ALT/SGPT 16 U/L (16-61); Albumin, Serum 4.1 g/dL (3.2-5.0); Alkaline Phosphatase 96 U/L (45-117); Anion Gap 6 (5-15); BUN 33 mg/dL (7-18); Calcium,Total 9.4 mg/dL (8.5-10.1); Chloride 112 mmol/L (98-107); Cholesterol 174 mg/dL (200); EST Glomerular Filtration Rate 47 mL/min (>60); Est Glom Filt Rate - Afr Amer 57 mL/min (>60); Globulin 3.7 g/dL (2.2-4.2); Glucose 81 mg/dL (74-106); High Density Lipoprotein 47 mg/dL; Potassium 4.2 mmol/L (3.5-5.1); Protein, Total 7.8 g/dL (6.4-8.2); Sodium Level 143 mmol/L (136-145); Thyroid Stim Hormone (TSH) 0.902 uIU/mL (0.358-3.740); Triglycerides 173 mg/dL; Very Low Density Lipoprotein 35 mg/dL (5-40)
[2024-03-31 09:49] LABS: Pathologist Review Reviewed
== END | disposition home or self-care (01) ==
LOC: POLAB3 13:16
PROVIDERS: Physician Assistant Medical; PCP Family Medicine Geriatric Medicine; Visit Provider Family Medicine Geriatric Medicine
DX: I10 Essential (primary) hypertension (principal); E55.9 Vitamin D deficiency, unspecified; E78.5 Hyperlipidemia, unspecified
CPT/HCPCS: 36415; 80053; 80061; 82248; 82306; 84443; 85025

== ENCOUNTER → 2024-04-09 | Outpatient (CLI) | payer MEDICARE, SELFPAY ==
[2020-08-02 07:29] VITALS: BMI 27.9
--- NOTE | 2024-04-09 08:57 | US_ITS ---
STUDY: ABDOMINAL ULTRASOUND - RIGHT UPPER QUADRANT; ELASTOGRAPHY REASON FOR VISIT: Male, 83 years old. Hepatic masses. TECHNIQUE: Ultrasound evaluation of the right upper quadrant was performed with real-time and static ochoa-scale imaging. Point quantification shear wave elastography was performed ([id number]). TECHNICAL QUALITY: Adequate. COMPARISON: Comparison is made with prior study October 11, 2020. FINDINGS: Liver: The liver is enlarged and measures 21.3 cm. There is increased echogenicity consistent with fatty infiltration. The bile ducts are within normal limits. There is hepatic color flow. The direction of portal flow is hepatopetal. Several cysts are seen within the right and left lobe of the liver. The largest cyst is in the right lobe and measures 12.5 cm x 12.8 cm x 11.7 cm. Median liver stiffness measured 8 kPa. Gallbladder: Normal distended gallbladder. The gallbladder wall measures 2.2 mm. There is a negative sonographic Shankar''s sign. There is no pericholecystic fluid. There are no gallstones. Common Bile Duct (C.B.D.): The common bile duct measures 4.8 mm. Pancreas: There is normal echogenicity of the visualized pancreas. There is no demonstrated pancreatic mass or cyst. Right Kidney: There is atrophy of the right kidney. The right kidney measures 8.3 cm x 3.1 cm x 3.1 cm. There is thinning of the renal cortex. The right cortex measures 0.7 cm. There is a 1.4 cm x 1.7 cm x 1 cm cyst. There is no right hydronephrosis. US/ABD Limited w/ Elastography IMPRESSION: 1. Liver stiffness measures 8 kPa compatible with F2-F3 (Mild to moderate liver fibrosis) Metavir score. 2. Hepatomegaly and fatty infiltration of the liver. 3. Hepatic cysts. 4. Right renal atrophy. Electronically Signed: Gatito Funez MD at 9:40 EDT ,
--- OUTSIDE RECORDS SUMMARY | 2024-04-09 09:01 | XMS RPT_ITS | CCD ---
Author Organization [facility] Care Team Providers Care Event Host Name Role Phone Roney, EnteloJt Primary Care Provider [phone] Roney, Ruben Jt Primary Care Provider Roney, Keybroker Primary Care Provider [phone] Medications Current Medications Medication Drug Class(es) Dates Sig (Normalized) Sig (Original) acetaminophen 325 mg oral tablet (2 sources) Start: 04-01-2020 acetaminophen (TYLENOL) tablet 650 mg Start: 03-26-2020 End: 04-01-2020 take 1000 mg by mouth every eight hours, then take 4000 mg by mouth every twenty-four hours 1,000 mg, Oral, EVERY 8 HOURS, First dose on 03/26/20 at 1315 Maximum dose of acetaminophen is 4000 mg from all sources in 24 hours. Post-op acetaminophen 325 mg / oxyCODONE hydrochloride 5 mg oral tablet (2 sources) Opioid Agonist Start: 04-11-2020 End: 04-18-2020 take 1 tablet by mouth every eight hours as needed for pain oxyCODONE-acetaminophen (PERCOCET) 5-325 MG per tablet Indications: Essential hypertension , CAD in [place] artery Take 1 tablet by mouth every 8 hours as needed for Pain for up to 7 days. 21 tablet 0 04/11/2020 04/18/2020 Active Start: 04-01-2020 oxyCODONE-acet aminophen (PERCOCET) 5-325 MG per tablet 1 tablet amiodarone hydrochloride 200 mg oral tablet (4 sources) Antiarrhythmic Start: 04-04-2020 take 1 tablet by mouth once daily amiodarone (CORDARONE) 200 MG tablet Take 1 tablet by mouth daily 30 tablet 3 04/11/2020 Active Start: 03-31-2020 End: 04-04-2020 amiodarone (CORDARONE) table t 400 mg Start: 03-28-2020 amiodarone (CO RDARONE) 150 MG/3ML injection amoxicillin 875 mg / clavulanate 125 mg oral tablet (2 sources) Penicillin-class Antibacterial Start: 04-11-2020 End: 04-25-2020 take 1 tablet by mouth every twelve hours amoxicillin-clavulanate (AUGMENTIN) 875-125 MG per tablet Take 1 tablet by mouth every 12 hours for 14 days 28 tablet 0 04/11/2020 04/25/2020 Active Start: 04-09-2020 amoxicillin-cl avulanate (AUGMENTIN) 875-125 MG per tablet 1 tablet aspirin 81 mg delayed release oral tablet (7 sources) Platelet Aggregation Inhibitor, Nonsteroidal Anti-inflammatory Drug Start: 04-17-2020 take 1 tablet by mouth once daily aspirin, enteric coated (ASPIRIN, ENTERIC COATED) 81 mg EC tablet Take 1 tablet by mouth once daily. 04/17/2020 Active Start: 03-29-2020 aspirin chewab le tablet 81 mg Start: 03-22-2020 End: 03-26-2020 aspirin chewable tablet 81 m g take 1 tablet by mouth once roman y aspirin 81 MG EC tablet Take 81 mg by mouth daily 0 Active Comment on above: Take 1 tablet by lisa th once daily. beta-carotene(a) w-c & e/min(OCUVITE TAB) (4 sources) Start: 010 beta-carotene(a) w-c & e/min(OCUVITE TAB) takes 3 once a day 0 07/12/2009 Active Comment on above: takes 3 once a day cholecalciferol 0.025 mg oral tablet (4 sources) Vitamin D Start: 010 CHOLECALCIFEROL (VITAMIN D3) 1,000 UNIT TAB 1-2 tabs daily 0 0 09/11/2009 Active Comment on above: 1-2 tabs daily clopidogrel 75 mg oral tablet (1 source) P2Y12 Platelet Inhibitor take 1 tablet by mouth once daily clopidogrel (PLAVIX) 75 MG tablet Take 75 mg by mouth daily 0 Active dextromethorphan hydrobromide 2 mg/ml / guaiFENesin 20 mg/ml oral suspension (1 source) Uncompetitive H-fatlsz-A-aspartate Receptor Antagonist, Sigma-1 Agonist Start: 020 guaiFENesin-dextromet horphan (ROBITUSSIN DM) 100-10 MG/5ML syrup 5 mL docusate sodium 50 mg / sennosides, chcf 8.6 mg oral tablet (1 source) Start: take 2 tablets by mouth once daily 2 tablet, Oral, NIGHTLY, First dose on 03/26/20 at 2100, Post-op furosemide 40 mg oral tablet (13 sources) Loop Diuretic Start: End: take 1 tablet by mouth once daily furosemide (LASIX) 40 MG tablet Take 1 tablet by mouth daily for 5 days 5 tablet 3 04/12/2020 04/17/2020 Active Start: 04-04-2020 End: 04-05-2020 furosemide (LASIX) tablet 40 mg Start: 04-03-2020 End: 04-04-2020 furosemide (LASIX) tablet 20 mg Start: 03-31-2020 furosemide (LA SIX) injection 20 mg Start: 03-28-2020 furosemide (LA SIX) injection 40 mg glucagon (rdna) 1 mg injection (1 source) Antihypoglycemic Agent Start: 03-26-2020 take 1 mL intravenous route every hour 1 mg, Intramuscular, PRN, Low blood sugar, Blood glucose less than 70 mg/dL and patient NOT ALERT or NPO and does not have IV access., Starting Thu03/26/20 at 1248 After administration, attempt intravenous access and start D5W at 100 mL/hr. Repeat blood glucose in 15 minutes x2 and notify provider. 1000 ml glucose 500 mg/ml injection (3 sources) Start: 03-26-2020 15 g, Oral, PRN, Low blood sugar, Starting 03/26/20 at 1248 If blood glucose less than 50 mg/dL and patient ALERT and TOLERATING PO, give 2 tubes glucose gel. If blood glucose less than 70 mg/dL and patient ALERT and TOLERATING PO, give 1 tube glucose gel. Repeat blood glucose in 15 minutes. If blood glucose is less than 70 mg/dL, repeat treatment and recheck blood glucose in 15 minutes x2 and notify provider. Post-op Start: 03-26-2020 12.5 g, Intrav enous, PRN, Low blood sugar, Blood glucose less than 70 mg/dL and patient NOT ALERT or NPO., Starting 03/26/20 at 1248 If patient does not respond within 5 minutes, repeat dose x1. Start D5W at 100 mL/hour until ordering provider can be reached. Repeat blood glucose in 15 minutes. If blood glucose is less than 70 mg/dL, repeat treatment and recheck blood glucose in 15 minutes x2. If using Glucostabilizer, dose as instructed per system. Post-op Start: 03-26-2020 100 mL/hr, Int ravenous, at 100 mL/hr, PRN, Low blood sugar, Starting 03/26/20 at 1248 Start infusion following administration of dextrose 50% or glucagon. Post-op 1 ml heparin sodium, porcine 5000 unt/ml prefilled syringe (1 source) Unfractionated Heparin, Anti-coagulant Start: 03-30-2020 heparin (porcine) injection 5,000 Units levothyroxine sodium 0.075 mg oral tablet (4 sources) l-Thyroxine Start: 07-17-2021 levothyroxine (SYNTHROID) 75 mcg tablet Take 50 mcg by mouth once daily. 07/17/2021 Active Start: 07-17-2021 levothyroxine (SYNTHROID) 75 mcg tablet Comment on above: Take 50 mcg by mouth once daily. melatonin 1 mg oral tablet (1 source) Start: 04-01-2020 melatonin tablet 2 mg 24 hr metoprolol succinate 25 mg extended release oral tablet (11 sources) beta-Adrenergic Gloria Start: 07-02-2021 take 1 tablet by mouth once daily metoprolol succinate ER (TOPROL XL) 25 mg 24 hr tablet Take 25 mg by mouth once daily. 07/02/2021 Active Start: 07-02-2021 metoprolol suc cinate ER (TOPROL XL) 25 mg 24 hr tablet Start: 04-11-2020 take 0.5 tablet by m outh twice daily metoprolol tartrate (LOPRESSOR) 25 MG tablet Take 0.5 tablets by mouth 2 times daily 60 tablet 3 04/11/2020 Active Start: 04-02-2020 metoprolol (LO PRESSOR) injection 5 mg Start: 03-29-2020 metoprolol (LO PRESSOR) 5 MG/5ML injection Start: 03-29-2020 metoprolol (LO PRESSOR) injection 2.5 mg Start: 03-29-2020 metoprolol tar trate (LOPRESSOR) tablet 12.5 mg Start: 03-22-2020 End: 03-26-2020 metoprolol tartrate (LOPRESS OR) tablet 12.5 mg Comment on above: Take 25 mg by mouth once daily. 2 ml ondansetron 2 mg/ml injection (1 source) Serotonin-3 Receptor Antagonist Start: 0 4 mg, Intravenous, EVERY 8 HOURS PRN, Nausea, Starting Thu03/26/20 at 1248, Post-op polyethylene glycol 3350 93912 mg powder for oral solution (2 sources) Osmotic Laxative Start: 0 End: 0 17 g, Oral, DAILY, First dose on Thu03/26/20 at 1315, Post-op pravastatin sodium 20 mg oral tablet (4 sources) HMG-CoA Reductase Inhibitor Start: 2 take 1 tablet by mouth once daily pravastatin (PRAVACHOL) 20 mg tablet Take 20 mg by mouth once daily. 07/21/2021 Active Comment on above: Take 20 mg by mouth once daily. 3 ml sodium chloride 9 mg/ml injection (9 sources) Start: 0 sodium chloride flush 0.9 % injection 10 mL Start: 03-26-2020 End: 03-28-2020 0.9 % sodium chloride bolus Start: 03-26-2020 take 10 mL intravenous route o nce 10 mL, Intravenous, PRN, Line Care, Starting Thu03/26/20 at 1248 After every IV line use Post-op Start: 03-26-2020 End: 03-31-2020 Intravenous, at 5 mL/hr, CONTINUOUS, Starting Thu03/26/20 at 1315 20 ml/hr to SP(introducer) and WT on Blair Dhaval Catheter; once Blair discontinued run at 20 ml/hr through SP(introducer) Post-op Start: 03-22-2020 End: 03-26-2020 10 mL, Intravenous, EVERY 12 HOURS SCHEDULED (2 times per day), First dose on Thu03/26/20 at 2100, Post-op Completed/Discontinued Medications Medication Drug Class(es) Dates Sig (Normalized) Sig (Original) 20 ml albumin human, chcf 250 mg/ml injection (5 sources) Human Serum Albumin Start: 03-28-2020 End: 03-28-2020 albumin human 25 % IV solution 50 g Start: 03-28-2020 End: 03-28-2020 albumin human 25 % IV soluti on 25 g Start: 03-26-2020 End: 03-26-2020 albumin human 25 % IV soluti on Start: 03-26-2020 End: 03-26-2020 albumin human 25 % IV soluti on 50 g amiodarone (CORDARONE) 150 m g in dextrose 5 % 100 mL bolus (3 sources) Start: 03-31-2020 End: 03-31-2020 amiodarone (CORDARONE) 150 m g in dextrose 5 % 100 mL bolus Start: 03-29-2020 End: 03-29-2020 amiodarone (CORDARONE) 150 m g in dextrose 5 % 100 mL bolus Start: 03-28-2020 End: 03-28-2020 amiodarone (CORDARONE) 150 m g in dextrose 5 % 100 mL bolus amiodarone (CORDARONE) 450 mg in dextrose 5 % 250 mL infusion (1 source) Start: 03-31-2020 End: 03-31-2020 amiodarone (CORDARONE) 450 mg in dextrose 5 % 250 mL infusion amLODIPine 10 mg oral tablet (1 source) Dihydropyridine Calcium Channel Gloria Start: 03-25-2020 End: 03-26-2020 amLODIPine (NORVASC) tablet 10 mg atorvastatin 80 mg oral tablet (1 source) HMG-CoA Reductase Inhibitor Start: 03-27-2020 End: 03-28-2020 take 80 mg by mouth once daily 80 mg, Oral, NIGHTLY, First dose on Thu03/27/20 at 2100, Post-op baclofen 10 mg oral tablet (3 sources) gamma-Aminobutyric Acid-ergic Agonist Start: 04-03-2020 End: 04-03-2020 baclofen (LIORESAL) tablet 10 mg Start: 04-03-2020 End: 04-03-2020 baclofen (LIORESAL) tablet 1 0 mg Start: 04-01-2020 End: 04-01-2020 baclofen (LIORESAL) tablet 1 0 mg calcium chloride 0.0014 meq/ml / potassium chloride 0.004 meq/ml / sodium chloride 0.103 meq/ml / sodium lactate 0.028 meq/ml injectable solution (2 sources) Start: 03-26-2020 End: 03-29-2020 lactated ringers infusion calcium chloride 2 g in sodium chloride 0.9 % 100 mL IVPB (1 source) Start: 03-27-2020 End: 03-28-2020 calcium chloride 2 g in sodium chloride 0.9 % 100 mL IVPB calcium gluconate 2 g in dextrose 5 % 100 mL IVPB (1 source) Start: 03-26-2020 2 g, Intravenous, PRN, Starting Thu03/26/20 at 1248, Until Discontinued Via central line. Infuse over 2 hours, Repeat serum ionized calcium 2 hours [address] infusion completed. Place order for recheck under surgeon Post-op ceFAZolin 2000 mg injection (1 source) Cephalosporin Antibacterial Start: 03-26-2020 End: 03-28-2020 2 g, Intravenous, EVERY 8 HOURS, 5 doses, First dose on Thu03/26/20 at 1600, Last dose on Thu03/28/20 at 0445, Post-op chlorhexidine gluconate 1.2 mg/ml mouthwash (5 sources) Start: 03-26-2020 End: 03-29-2020 take 15 mL by mouth twice daily 15 mL, Mouth/Throat, 2 TIMES DAILY, First dose on Thu03/26/20 at 1315, For 7 days Rinse and spit. Do not swallow. Post-op Start: 03-25-2020 End: 03-26-2020 chlorhexidine 2% cloth Start: 03-25-2020 End: 03-26-2020 chlorhexidine (PERIDEX) 0.12 % solution 15 mL 2 ml digoxin 0.25 mg/ml injection (1 source) Cardiac Glycoside Start: 03-28-2020 End: 03-28-2020 digoxin (LANOXIN) 0.25 MG/ML injection EPINEPHrine (EPINEPHrine HCL) 5 mg in dextrose 5 % 250 mL infusion (1 source) Start: 03-26-2020 End: 03-28-2020 EPINEPHrine (EPINEPHrine HCL) 5 mg in dextrose 5 % 250 mL infusion fentanyl (SUBLIMAZE) 1,000 mcg in sodium chloride 0.9% 100 mL infusion (1 source) Start: 03-26-2020 End: 03-29-2020 fentanyl (SUBLIMAZE) 1,000 mcg in sodium chloride 0.9% 100 mL infusion hydrOXYzine hydrochloride 10 mg oral tablet (1 source) Antihistamine Start: 03-31-2020 End: 03-31-2020 hydrOXYzine (ATARAX) tablet 10 mg insulin lispro 100 unt/ml injectable solution (1 source) Insulin Analog Start: 03-29-2020 End: 03-30-2020 insulin lispro (HUMALOG) injection vial 0-6 Units insulin regular (MYXREDLIN) 100 units in sodium chloride 0.9 % 100 ml infusion (2 sources) Start: 03-28-2020 End: 03-29-2020 insulin regular (MYXREDLIN) 100 units in sodium chloride 0.9 % 100 ml infusion Start: 03-26-2020 End: 03-28-2020 take 1 [IU] intravenous route every hour 1 Units/hr (1 mL/hr), Intravenous, at 1 mL/hr, CONTINUOUS, Starting 03/26/20 at 1315 Target glucose 90-120mg/dl; if glucose <40 or >500 draw confirmation and send to lab; While on insulin drip follow hypoglycemic orders as outlined below. o Blood Glucose Initial Administration Rate/Additional IV Insulin Bolus protocol > 90-120mg/dl - 1 unit/hr 121-150mg/dl - 2 units/hr 150-180mg/dl - 2.5 units/hr 181- 240mg/dl - 3.5 units/hr + 4 unit bolus 241-300mg/dl - 5 units/hr + 6 unit bolus 301-360mg/dl - 6.5 units/hr + 8 unit bolus > 360mg/dl - 8 units/hr + 10 unit bolus o Glucose by finger stick 30 minutes after infusion has started, then per Floor Blood Glucose guidelines below o When BGT is between 90-120mg/dl with < 15mg/dl change and insulin rate remains unchanged x 3 hours, then may test every 2 hours. o Adjust insulin infusion rate in response to blood glucose levels as follows: o < 60mg/dl: BGT check in 30 minutes: 1. Stop infusion. 2. Give 25ml dextrose 50% IVP, recheck BG in 30 mins When BG is > 80 and < 120mg/dl, restart drip at 50% of the previous rate, recheck in 30 minutes. If BG > 120, restart drip at 75% of the previous rate, recheck in 30 minutes o 60-69mg/dl: BGT check in 30 minutes: 1. Stop infusion. If previous BG > 100mg/dl give 25ml dextrose 50% IVP, recheck BG in 30 minutes. When BG > 80 and < 120mg/dl, restart drip at 50% of previous rate, recheck BG in 30 minutes. If BG > 120mg/dl or more restart drip at 75% of the previous rate, recheck BG in 30 minutes. o 70-89mg/dl: BGT check every 1 hour. Has BG dropped > 10mg/dl from the last BG? Yes: Decrease rate by 50% Has BG dropped from the last BG < 10mg/dl or = to 10mg/dl? Yes: decrease the rate by 0.5units/hr. If BG greater than or equal to the last test, maintain same rate. o 90-120mg/dl: BGT check in 1 hour. TITRATE DRIP RATE TO MAINTAIN THIS RANGE Has BG increased > 10mg/dl from the last BG? Yes: increase rate by 0.5units/hr. Has BG dropped from the last BG by more than 10mg/dl? Yes: decrease the rate by 0.5 units/hr: No: Same rate. o 121-150mg/dl: BGT check in 1 hour Has BG dropped 20-50mg/dl from last BG? Yes: Same rate. Has BG increased from last BG by > 20mg/dl? Yes: increase rate by 1.5 units/hr. Has BG dropped by more than 50mg/dl? Yes: decrease rate by 50%. Is BG within 20mg/dl of the last test? Yes: increase rate by 1 unit/hr. o 151-180mg/dl: BGT check every 1 hour Has BG dropped > 30mg/dl? Yes: same rate Has BG dropped from last BG by < 30 mg/dl OR is BG higher than the last test? Yes: increase rate by 1.5 units/hr. o 181-240mg/dl: BGT check in 1 hour Is BG 50-100mg/dl lower from the last BG? Yes: continue at the same rate. Is BG lower than the last BG by >100mg/dl? Yes: decrease rate by 25%. Is BG lower than the last BG by < 50mg/dl OR higher than the last test? Yes: bolus with 4 units insulin IV and increase rate by 2 units/hr. Note: If BG 181-240mg/dl and has not dropped after 3 consecutive increases in insulin, then bolus with 4 units and double the insulin rate. o > 240mg/dl: BGT check in 30 minutes Has BG dropped > 100mg/dl from last BG? Yes: same rate Is BG lower than the last test by < 100mg/dl OR higher than the last test? Yes: IV Bolus with regular insulin as per IV infusion Bolus dosage scale and double insulin drip rate. o > 300mg/dl: Continue to follow the appropriate interventions based on BGT and call the [employer]. o Maximum insulin infusion drip rate may not exceed 30 units/hr; Insulin drip may NOT be discontinued unless approved by [facility]. Discontinue all subcutaneous Insulin orders (if patient is on subcutaneous insulin). Post-op lactulose 667 mg/ml oral solution (1 source) Osmotic Laxative Start: 03-30-2020 End: 03-30-2020 lactulose (CHRONULAC) 10 GM/15ML solution 20 g metoclopramide 10 mg oral tablet (1 source) Dopamine-2 Receptor Antagonist Start: 04-02-2020 End: 04-03-2020 metoclopramide (REGLAN) tablet 10 mg 2 ml midazolam 1 mg/ml injection (2 sources) Benzodiazepine Start: 03-26-2020 End: 03-26-2020 midazolam (VERSED) injection 2 mg Start: 03-26-2020 End: 03-26-2020 midazolam (VERSED) 2 MG/2ML injection midazolam (VERSED) 100 mg in dextrose 5 % 100 mL infusion (1 source) Start: 03-26-2020 End: 03-29-2020 midazolam (VERSED) 100 mg in dextrose 5 % 100 mL infusion mupirocin 0.02 mg/mg topical ointment (3 sources) RNA Synthetase Inhibitor Antibacterial Start: 03-26-2020 End: 03-26-2020 mupirocin (BACTROBAN) 2 % ointment Start: 03-25-2020 End: 03-29-2020 Nasal, 2 TIMES DAILY, First dose on 03/26/20 at 1315, For 4 days, Post-op niCARdipine (CARDENE) 25 mg in sodium chloride 0.9 % 250 mL infusion (1 source) Start: 03-26-2020 End: 03-31-2020 5 mg/hr (50 mL/hr), Intraven ous, at 50 mL/hr, CONTINUOUS PRN, Titrate to keep SBP < 130 but > 90; Goal MAP 60-70, Starting 03/26/20 at 1248 Titrate to keep SBP < 130 but > 90; Goal MAP 60-70 Max Dose: 15 mg/hr Titrate at 2.5 mg/hr no faster than every 15 minutes May titrate outside of defined titration parameters (increments and frequency) under the direction of the provider. If SBP or MAP falls below goal, wean drip; titrate at 2.5 mg/hr no faster than every 15 minutes to goal Post-op norepinephrine (LEVOPHED) 16 mg in sodium chloride 0.9 % 250 mL infusion (1 source) Start: 03-26-2020 End: 03-29-2020 0.03 mcg/kg/min 83 kg (2.334 4 mL/hr, rounded to 2.3 mL/hr), Intravenous, at 2.3 mL/hr, CONTINUOUS, Starting Thu03/26/20 at 1315 May titrate up to 0.2 mcg/kg/min to maintain MAP greater than 65 and less than 75 Titrate by 0.02 mcg/kg/min no faster than every 15 minutes to goal May titrate outside of defined titration parameters (increments and frequency) under the direction of the provider If MAP greater than 75 wean drip, titrate by 0.02 mcg/kg/min no faster than every 15 minutes to goal MAP greater than 65 Post-op omega-3 fatty acids(FISH OIL 500 MG CAP) (3 sources) Start: 07-12-2009 End: 12-24-2021 omega-3 fatty acids(FISH OIL 500 MG CAP) takes 3 once a day 0 07/12/2009 12/24/2021 Discontinued Start: 07-12-2009 omega-3 fatty acids(FISH OIL 500 MG CAP) takes 3 once a day 0 07/12/2009 Active Comment on above: takes 3 once a day pantoprazole 40 mg delayed release oral tablet (3 sources) Proton Pump Inhibitor Start: 03-30-2020 End: 04-11-2020 pantoprazole (PROTONIX) tablet 40 mg Start: 03-22-2020 End: 03-26-2020 take 40 mg by mouth once daily 40 mg, Oral, DAILY, Fir st dose on Joanie 03/22/20 at 0915 Do not crush or break. phenylephrine (MIKA-SYNEPHRIN E) 50 mg in dextrose 5 % 250 mL infusion (1 source) Start: 03-28-2020 End: 03-31-2020 phenylephrine (MIKA-SYNEPHRIN E) 50 mg in dextrose 5 % 250 mL infusion microencapsulated potassium chloride 10 meq extended release oral tablet (3 sources) Start: 04-02-2020 End: 04-02-2020 potassium chloride (KLOR-CON M) extended release tablet 10 mEq Start: 03-26-2020 20 mEq, Oral, PRN, hypokalemia, Starting 03/26/20 at 1248 If patient is intubated or not tolerating PO use PRN IV replacement protocol Potassium level Dose < 3.0 = Give 20 mEq x 3 doses 3.0-3.6 = Give 20 mEq x 2 doses Recheck potassium level 2 hour after replacement given, place order for lab under [place] If potassium level < 3 after 1st replacement: Call surgeon. Do not crush or break. Post-op Start: 03-26-2020 End: 04-04-2020 20 mEq, Intravenous, at 50 m L/hr, Administer over 60 Minutes, PRN, Other, hypokalemia, Starting 03/26/20 at 1248 Via central line - do not use if urine output below 30 mL/hr or if patient is on total parental nutrition, peritoneal or hemodialysis. Potassium Level Dose: Less than or equal to 3.5-Give 20mEq x 2 doses. Less than or equal to 2-Call provider. Repeat potassium level 2 hour post-infusion and follow protocol as indicated. Post-op 1 ml promethazine hydrochloride 25 mg/ml injection (1 source) Phenothiazine Start: 03-30-2020 End: 03-30-2020 promethazine (PHENERGAN) injection 6.25 mg 100 ml propofol 10 mg/ml injection (1 source) General Anesthetic Start: 03-26-2020 End: 03-26-2020 10 mcg/kg/min 83 kg (4.98 mL/hr, rounded to 5 mL/hr), Intravenous, at 5 mL/hr, CONTINUOUS, Starting 03/26/20 at 1315 For sedation, titrate to RASS +1 to -1 Dose Range: 5 to 50 mcg/kg/min Max dose: 50 mcg/kg/min Conta ct physician if max dose does not achieve desired response I f RASS 1 point below goal - decrease rate by 5mcg/kg/min no faster than every 5 min If RASS 2 points below goal - decrease rate by 10mcg/kg/min no faster than every 5 min If RASS at goal, continue current rate If RASS 2 or more points above goal - increase rate by 10mcg/kg/min no faster than every 5 min If RASS 1 point above goal - increase rate by 5mcg/kg/min no faster than every 5 min If after titration rate change patient exhibits adverse hemodynamic response, next titration rate change may be adjusted by one-half of the previous rate change If patient fails sedation interruption, resume propofol titration at 50% of previous rate Do not administer through the same I.V. catheter with blood or plasma. Tubing and any unused portions of propofol vials should be discarded after 12 hours. Post-op protamine 50 mg in sodium chloride 0.9 % 50 mL IVPB (1 source) Start: 03-26-2020 End: 03-26-2020 protamine 50 mg in sodium chloride 0.9 % 50 mL IVPB ramipril 2.5 mg oral capsule (6 sources) Angiotensin Converting Enzyme Inhibitor Start: 03-21-2020 End: 03-21-2020 ramipril (ALTACE) capsule 10 mg End: 04-11-2020 take 1 capsule by mouth once daily ramipril (ALTACE) 10 mg capsule Take 10 mg by mouth once daily. Active Comment on above: Take 10 mg by mouth once daily. rosuvastatin calcium 20 mg oral tablet (1 source) HMG-CoA Reductase Inhibitor Start: 03-25-2020 End: 03-26-2020 rosuvastatin (CRESTOR) tablet 40 mg 10 ml sodium bicarbonate 84 mg/ml injection (1 source) Start: 03-27-2020 End: 03-27-2020 sodium bicarbonate 8.4 % injection 50 mEq Start: 03-27-2020 End: 03-27-2020 sodium bicarbonate 8.4 % inj ection 50 mEq sodium bicarbonate 150 mEq i n sterile water 1,000 mL infusion (1 source) Start: 03-27-2020 End: 03-27-2020 sodium bicarbonate 150 mEq i n sterile water 1,000 mL infusion sodium bicarbonate 75 mEq in sterile water 1,000 mL infusion (1 source) Start: 03-27-2020 End: 03-27-2020 sodium bicarbonate 75 mEq in sterile water 1,000 mL infusion vasopressin 20 Units in dext neo 5 % 100 mL infusion (1 source) Start: 03-26-2020 End: 03-29-2020 vasopressin 20 Units in dextrose 5 % 100 mL infusion Problems Active Problems Problem Classification Problem Date Documented Da te Episodic/Chronic Cardiac dysrhythmias (2 sources) Paroxysmal atrial fibrillation; Translations: [Paroxysmal atrial fibrillation (HCC)] Onset: 0 03-28-2020 Chronic Chronic kidney disease (2 sources) Chronic kidney disease; Translations: [Chronic kidney disease] 03-22-2020 Chronic Coagulation and hemorrhagic disorders (2 sources) Disseminated intravascular coagulation; 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] Onset: 0 03-28-2020 Chronic Coronary atherosclerosis and other heart disease (4 sources) Coronary arteriosclerosis; Translations: [Coronary atherosclerosis] Onset: 0 03-22-2020 Chronic Disorders of lipid metabolism (2 sources) Hyperlipidemia; Translations: [Hyperlipidemia] 03-22-2020 Chronic Diverticulosis and diverticulitis (4 sources) Diverticulosis of colon; Translations: [Diverticulosis of large intestine without perforation or abscess without bleeding] Onset: 7 10-19-2006 Chronic Esophageal disorders (2 sources) Gastroesophageal reflux disease; Translations: [GERD (gastroesophageal reflux disease)] 03-22-2020 Chronic Essential hypertension (3 sources) Essential hypertension; Translations: [Hypertensive disorder] 03-22-2020 Chronic Gastrointestinal hemorrhage (4 sources) Gastrointestinal hemorrhage; Translations: [Gastrointestinal hemorrhage, unspecified] 08-06-2006 Episodic Hemorrhoids (4 sources) Internal hemorrhoids; Translations: [Other hemorrhoids] 08-06-2006 Episodic Mood disorders (2 sources) Postoperative depression; 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 Nutritional deficiencies (2 sources) Nutritional marasmus; 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)] Onset: 0 04-04-2020 Chronic Other and unspecified benign neoplasm (4 sources) Benign neoplasm of colon; Translations: [Benign neoplasm of colon, unspecified] 08-06-2006 Episodic Other and unspecified benign neoplasm (1 source) Tubular adenoma ; Translations: [Benign neoplasm, unspecified site] Episodic Other gastrointestinal disorders (2 sources) Alteration in bowel elimination; Translations: [Change in bowel habit] Episodic Other nutritional; endocrine; and metabolic disorders (2 sources) Hyperbilirubinemia; 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] 03-30-2020 Chronic Residual codes; unclassified (3 sources) Family history of cancer of colon; Translations: [Family history of malignant neoplasm of digestive organs] Episodic Residual codes; unclassified (4 sources) Family history of malignant neoplasm of gastrointestinal tract; Translations: [Family history of malignant neoplasm of digestive organs] 08-06-2006 Episodic Past or Other Problems Problem Classification Problem Date Documented Da te Episodic/Chronic Acute posthemorrhagic anemia (2 sources) Anemia following acute postoperative blood loss; Translations: [Postoperative anemia due to acute blood loss] Onset: 03-28-2020 03-28-2020 Episodic Coronary atherosclerosis and other heart disease (2 sources) History of coronary artery bypass grafting; Translations: [S/P CABG (coronary artery bypass graft)] 03-26-2020 Episodic Diabetes mellitus without complication (2 sources) Metabolic stress hyperglycemia; Translations: [Stress hyperglycemia] 03-26-2020 Episodic Other and unspecified benign neoplasm (6 sources) History of polyp of colon; Translations: [Personal history of colonic polyps] Onset: 09-11-2009 Episodic Other gastrointestinal disorders (2 sources) Constipation; Translations: [Other constipation] Onset: 04-01-2020 04-01-2020 Episodic Results Test Name Value Interpretation Reference Range Facility [facility] 03-31-2024 CNPN Telephone (ENWSTR) KAREN KEARNS ([id number]) 1940 M Date Time Provider Department 03/31/24 CIERRA GRIER ENWSTR During your visit today, we recorded the following information about you: Milagros Correa MA 03/31/2024 11:[address] Sim's office phones to request last colonoscopy notes faxed for their records. Office was questioning when repeat scope was due. ALEXYS was faxed through [employer] as requested. 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 - metoprolol succinate ER (TOPROL XL) 25 mg 24 hr tablet Take 25 mg by mouth once daily. - pravastatin (PRAVACHOL) 20 mg tablet Take 20 mg by mouth once daily. - aspirin, enteric coated (ASPIRIN, ENTERIC COATED) 81 mg EC tablet Take 1 tablet by mouth once daily. - ramipril (ALTACE) 10 mg capsule Take 10 mg by mouth once daily. 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] GASTROINTEST HEMORR NOS [K92.2] DIVERTICULOSIS OF COLON W/O BLEED [K57.30] 10/19/2006 Personal History of Colonic Polyps [Z86.0100] 09/11/2009 Encounter Status:Closed by MILAGROS CORREA on 03/31/24 Normal [facility] COLONOSCOPY SCREENINGon 11-14 [facility] Op Noteon 04-14-2020 Op Note Normal [facility] Op Note Normal [facility] Basic Metabolic Panelon 03-16 Calcium [Mass/Vol] 7.9 mg/dL Low 8.4-10.4 [facility] Comment on above: Performed By: #### L FT3, HEMOG, BMP3 ####[facility] [address], [place] Glucose [Mass/Vol] 112 mg/dL High 70-100 [facility] Comment on above: Performed By: #### L FT3, HEMOG, BMP3 ####[address], [place] Anion Gap 5 Normal [facility] Comment on above: Performed By: #### L FT3, HEMOG, BMP3 ####[facility] [place], [place] CO2 [Moles/Vol] 29 mmol/L Normal 22-30 [facility] Comment on above: Performed By: #### L FT3, HEMOG, BMP3 ####[address], [place] Creatinine [Mass/Vol] 1.57 mg/dL High 0.52-1.25 [facility] Comment on above: Performed By: #### L FT3, HEMOG, BMP3 ####[facility] [address], [place] GFR/1.73 sq M.predicted among blacks MDRD (S/P/Bld) [Vol rate/Area] 47.2 mL/min/{1.73_m2} Abnormal >60 [facility] Comment on above: Performed By: #### L FT3 HEMOG, BMP3 ####[facility] [address] [place], [place] GFR/1.73 sq M.predicted among non-blacks MDRD (S/P/Bld) [Vol rate/Area] 40.7 mL/min/{1.73_m2} Abnormal >60 [facility] Comment on above: Result Comment: KDIG O guidelines provide the following GFR categories:Stage GFR(ml/min/1.73 m2) TermsG1 >=90 Normal or highG2 60-89 Mildly decreased*G3a 45-59 Mildly to moderately iyyjhvawbZ3a 30-44 Moderately to severely decreasedG4 15-29 Severely decreasedG5 <15 Kidney failure*Relative to young adult level.In the absence of evidence of kidney damage, neither GFRcategory G1 nor G2 fulfill the criteria for CKD.The CKD-EPI equation is validated in individuals 18 yearsof age and older. Currently the best equation forestimating glomerular filtration rate (GFR) from serumcreatinine in children is the Bedside Pelletier equation.It is less accurate in patients with extremes of musclemass, restriction of dietary protein, ingestion of creatine,extra-renal metabolism of creatinine, or treatment withmedications that affect renal tubular creatinine secretion. Performed By: #### L FT3, HEMOG, BMP3 ####[facility] [address] [place], [place] Urea nitrogen [Mass/Vol] 51 mg/dL High 7-20 [facility] Comment on above: Performed By: #### L FT3, HEMOG, BMP3 ####[facility] [address] [place], [place] Potassium [Moles/Vol] 4.3 mmol/L Normal 3.5-5.1 [facility] Comment on above: Result Comment: Slig htly hemolysed, interpret with caution. Performed By: #### L FT3, HEMOG, BMP3 ####[facility] [address] [place], [place] Sodium [Moles/Vol] 138 mmol/L Normal 135-145 [facility] Comment on above: Performed By: #### L FT3KIT BMP3 ####[facility] [place] [address] Chloride [Moles/Vol] 103 mmol/L Normal 98-107 [facility] Comment on above: Performed By: #### L FT3, THEODORA PANTOJA3 ####[facility] [place] [address] Anion gap [Moles/Vol] 5 mmol/L [place], [place] Calcium [Mass/Vol] 7.9 mg/dL Low 8.4 - 10. 4 mg/dL [place], [place] Chloride [Moles/Vol] 103 mmol/L 98 - 10 7 mmol/L [place] CO2 [Moles/Vol] 29 mmol/L 22 - 30 mmol/L [place] Creatinine [Mass/Vol] 1.57 mg/dL High 0.52 - 1.25 mg/dL [place] EGFR IF NonAfrican Albanian 40.7 mL/min Abnormal >60 [place] Comment on above: KDIGO guidelines pro vide the following GFR categories: Stage GFR(ml/min/1.73 m2) Terms G1 >=90 Normal or high G2 60-89 Mildly decreased* G3a 45-59 Mildly to moderately decreased G3b 30-44 Moderately to severely decreased G4 15-29 Severely decreased G5 <15 Kidney failure *Relative to young adult level. In the absence of evidence of kidney damage, neither GFR category G1 nor G2 fulfill the criteria for CKD. The CKD-EPI equation is validated in individuals 18 years of age and older. Currently the best equation for estimating glomerular filtration rate (GFR) from serum creatinine in children is the Bedside Pelletier equation. It is less accurate in patients with extremes of muscle mass, restriction of dietary protein, ingestion of creatine, extra-renal metabolism of creatinine, or treatment with medications that affect renal tubular creatinine secretion. GFR/1.73 sq M predicted among blacks MDRD (S/P/Bld) [Vol rate/Area] 47.2 mL/min/{1.73_m2} Abnormal >60 [place], [place] Glucose [Mass/Vol] 112 mg/dL High 70 - 100 mg/dL [place] Potassium [Moles/Vol] 4.3 mmol/L 3.5 - 5.1 mmol/L [place] Comment on above: Slightly hemolysed, interpret with caution. Sodium [Moles/Vol] 138 mmol/L 135 - 145 mmol/L [place] Urea nitrogen [Mass/Vol] 51 mg/dL High 7 - 20 mg/dL [place] CBCon 04-11-2020 Erythrocyte distribution width (RBC) [Ratio] 19.4 % High 11.5 - 14.5 % [place] Hematocrit (Bld) [Volume fraction] 26.4 % Low 40 - 52 % [place] Hemoglobin (Bld) [Mass/Vol] 8.6 g/dL Low 13 - 18 g/dL [place] Interpretation and review of laboratory results Abnormal [place] MCH (RBC) [Entitic mass] 31.4 pg 26 - 34 pg [place] MCHC (RBC) [Mass/Vol] 32.8 % 32 - 36 % [place], [place] MCV (RBC) [Entitic vol] 95.7 fL 80 - 98 fL [place] Platelet mean volume (Bld) [Entitic vol] 8.4 fL 7.4 - 10.4 fL [place] Platelets (Bld) [#/Vol] 324 10*3/uL 140 - 440 10*3/uL [place] RBC (Bld) [#/Vol] 2.76 10*6/uL Low 4.4 - 5.9 10*6/uL [place] WBC (Bld) [#/Vol] 14.3 10*3/uL High 3.6 - 10.7 10*3/uL [place] Test Performed by [facility], [address] [place] [address] [place], [place] CR Chest Portableon 04-11-20 20 CR Chest Portable Normal [facility] CR Chest Portable Normal [facility] Hemogramon 04-11-2020 Erythrocyte distribution width (RBC) [Ratio] 19.4 % High 11.5-14.5 [facility] Comment on above: Performed By: #### L FT3 HEMOG, BMP3 ####[address] [place], [place] Hematocrit (Bld) [Volume fraction] 26.4 % Low 40.0-52.0 [facility] Comment on above: Performed By: #### L FT3, HEMOG, BMP3 ####[address] Hemoglobin (Bld) [Mass/Vol] 8.6 g/dL Low 13.0-18.0 [facility] Comment on above: Performed By: #### L FT3, HEMOG, BMP3 ####[address] MCH (RBC) [Entitic mass] 31.4 pg Normal 26.0-34.0 [facility] Comment on above: Performed By: #### L FT3, HEMOG, BMP3 ####[address] MCHC 32.8 % Normal 32.0-36.0 [facility] Comment on above: Performed By: #### L FT3, HEMOG, BMP3 ####[address] MCV (RBC) [Entitic vol] 95.7 fL Normal 80.0-98.0 [facility] Comment on above: Performed By: #### L FT3, HEMOG, BMP3 ####[address] Platelet mean volume (Bld) [Entitic vol] 8.4 fL Normal 7.4-10.4 [facility] Comment on above: Performed By: #### L FT3, HEMOG, BMP3 ####[address] Platelets (Bld) [#/Vol] 324 10*3/uL Normal 140-440 [facility] Comment on above: Performed By: #### L FT3 HEMOG, BMP3 ####[address] [place], [place] RBC (Bld) [#/Vol] 2.76 10*6/uL Low 4.40-5.90 [facility] Comment on above: Performed By: #### L FT3 HEMOG BMP3 ####[address] [place], [place] WBC (Bld) [#/Vol] 14.3 10*3/uL High 3.6-10.7 [facility] Comment on above: Performed By: #### L KIT MORGAN BMP3 ####[address] Hepatic Functionon 202 0 ALT [Catalytic activity/Vol] 120 U/L High 0-49 [facility] Comment on above: Result Comment: The ALT test is performed by an updated assay method.Please note that the reference intervals have beenchanged and are now sex specific. Performed By: #### L FT3 HEMOG, BMP3 ####[facility] [address] [place], [place] ALP [Catalytic activity/Vol] 119 U/L Normal 38-126 [facility] Comment on above: Result Comment: Slig htly hemolysed, interpret with caution. Performed By: #### L FT3 HEMOG BMP3 ####[address] [place], [place] AST [Catalytic activity/Vol] 68 U/L High 15-46 [facility] Comment on above: Result Comment: Slig htly hemolysed, interpret with caution. Performed By: #### L FT3 HEMOG, BMP3 ####[address] [place], [place] Bilirubin [Mass/Vol] 2.7 mg/dL High 0.2-1.3 [facility] Comment on above: Performed By: #### L FT3 HEMOG, BMP3 ####[facility] [place] [address] Bilirubin.indirect [Mass/Vol] 0.0 mg/dL Normal 0.0-0.3 [facility] Comment on above: Performed By: #### L FT3, HEMOG, BMP3 ####[facility] [place] [address] Protein [Mass/Vol] 6.3 g/dL Normal 6.3-8.2 [facility] Comment on above: Performed By: #### L FT3, HEMOG, BMP3 ####[facility] [place] [address] Albumin [Mass/Vol] 3.0 g/dL Low 3.5-5.0 [facility] Comment on above: Performed By: #### L FT3, HEMOG, BMP3 ####[address] [place] [address] Hepatic Function Panelon Albumin [Mass/Vol] 3.0 g/dL Low 3.5 - 5 g/dL [place], [place] ALP [Catalytic activity/Vol] 119 U/L 38 - 126 U/L [place] Comment on above: Slightly hemolysed, interpret with caution. ALT [Catalytic activity/Vol] 120 U/L High 0 - 49 U/L [place] Comment on above: The ALT test is perf ormed by an updated assay method. Please note that the reference intervals have been changed and are now sex specific. AST [Catalytic activity/Vol] 68 U/L High 15 - 46 U/L [place] Comment on above: Slightly hemolysed, interpret with caution. Bilirubin Ql (U) 2.7 mg/dL High 0.2 - 1.3 mg/dL [place] Bilirubin.direct [Mass/Vol] 0.0 mg/dL 0 - 0.3 mg/dL [place] Protein [Mass/Vol] 6.3 g/dL 6.3 - 8.2 g/dL [place] Otheron 04-11-2020 Interpretation and review of laboratory results Abnormal [place] Test Performed by [facility], [address] [place] [address] [place], [place] US GUIDE THORACENTESISon Patient Name: KAREN KEARNS ---Ultrasound--- Exam Date/Time 04/11/2020 13:35:24 EDT Exam US Thora-Aspir Pleura w/ Image Ordering Physician YANIQUE LACEY MATTHEW R. Accession Number [id number] CPT4 Codes 04823 () Reason For Exam Left Effuison Report CLINICAL HISTORY: Left-sided pleural effusion Procedures: Ultrasound-guided left thoracentesis. Physician: Dr. Hester MEDICATIONS: Local lidocaine. EBL: Minimal. Contrast: None. Specimen sent: None COMPLICATIONS: None. Procedural details: All of the risk, benefits, and alternative treatments were explained to the patient and informed consent was obtained and documented. This procedure was performed in the ICU based on patient instability. The patient's back was evaluated with ultrasound and a suitable site for thoracentesis was identified on the left side. Color Doppler was used to assess for overlying vascular structures. A timeout was performed. The overlying skin was prepped and draped in the usual sterile fashion. The overlying subcutaneous tissues were anesthetized using 2 percent lidocaine. Following this, a 5 Stateless Twist and Shout catheter was then advanced into the fluid collection under suction. There was return of reddish serosanguineous fluid. The catheter was then deployed and hooked up to Vacutainer bottles. Findings: Small left-sided pleural effusion Evacuation of 400 mL of dark red serosanguineous fluid. IMPRESSION: Successful uncomplicated ultrasound-guided left-sided thoracentesis. Report Dictated on Workstation: [id number] --- Final --- Dictated: 04/11/2020 2:30 pm Dictating Physician: MD HESTER YUN ROBERT Signed Date and Time: 04/11/2020 2:46 pm Signed by: MD HESTER YUN ROBERT Transcribed Date and Time: 04/11/2020 2:30 [place], [place] [facility] 04/11/2020 2:47 PM EDT Patient Name: KAREN KEARNS ---Ultrasound--- Exam Date/Time 04/11/2020 13:35:24 EDT Exam US Thora-Aspir Pleura w/ Image Ordering Physician YANIQUE LACEY PAUL AndradeKevin Accession Number [id number] CPT4 Codes 22275 () Reason For Exam Left Effuison Report CLINICAL HISTORY: Left-sided pleural effusion Procedures: Ultrasound-guided left thoracentesis. Physician: Dr. Hester MEDICATIONS: Local lidocaine. EBL: Minimal. Contrast: None. Specimen sent: None COMPLICATIONS: None. Procedural details: All of the risk, benefits, and alternative treatments were explained to the patient and informed consent was obtained and documented. This procedure was performed in the ICU based on patient instability. The patient's back was evaluated with ultrasound and a suitable site for thoracentesis was identified on the left side. Color Doppler was used to assess for overlying vascular structures. A timeout was performed. The overlying skin was prepped and draped in the usual sterile fashion. The overlying subcutaneous tissues were anesthetized using 2 percent lidocaine. Following this, a 5 Stateless Twist and Shout catheter was then advanced into the fluid collection under suction. There was return of reddish serosanguineous fluid. The catheter was then deployed and hooked up to Vacutainer bottles. Findings: Small left-sided pleural effusion Evacuation of 400 mL of dark red serosanguineous fluid. IMPRESSION: Successful uncomplicated ultrasound-guided left-sided thoracentesis. Report Dictated on Workstation: [id number] --- Final --- Dictated: 04/11/2020 2:30 pm Dictating Physician: MD HESTER YUN ROBERT Signed Date and Time: 04/11/2020 2:46 pm Signed by: MD HESTER YUN ROBERT Transcribed Date and Time: 04/11/2020 2:30 [facility] [place], [place] US Thora-Aspir Pleura w/ Verna geon 04-11-2020 US Thora-Aspir Pleura w/ Image Normal [facility] XR CHEST PORTABLEon 04-11-20 [facility] From [facility] - 04/11/2020 3:59 PM EDT Patient Name: KAREN KEARNS ---Diagnostic Radiology--- Exam Date/Time 04/11/2020 14:30:05 EDT Exam CR Chest Portable Ordering Physician YANIQUE LACEY MATTHEW R. Accession Number [id number] CPT4 Codes 79093 () Reason For Exam Post thoracentisis Report CHEST (Frontal View) History: Postthoracentesis Comparison: 04/11/2020, 5:23 AM Findings: Frontal chest view shows partial volume loss of the left lung with left basilar atelectasis/infiltrate and minimal if any pleural effusion, decreased compared to last exam. There is small right pleural effusion and probably basilar infiltrate, not significantly changed. Both lungs show otherwise chronic changes with interstitial prominence. The heart is enlarged with median sternotomy noted. There is left pleural thickening/calcificatio ns and multiple remote ribs fractures. There is no mediastinal widening, definite pneumothorax, or other significant interval change. Continued follow-up suggested. Report Dictated on --- Final --- Dictated: 04/11/2020 3:51 pm Dictating Physician: MD SMILEY AHMAD Signed Date and Time: 04/11/2020 3:58 pm Signed by: MD SMILEY AHMAD Transcribed Date and Time: 04/11/2020 3:51 [place], [place] Patient Name: KAREN KEARNS [facility]: [id number] ---Diagnostic Radiology--- Exam Date/Time 04/11/2020 14:30:05 EDT Exam CR Chest Portable Ordering Physician YANIQUE LACEY MATTHEW R. Accession Number [id number] CPT4 Codes 27263 () Reason For Exam Post thoracentisis Report CHEST (Frontal View) History: Postthoracentesis Comparison: 04/11/2020, 5:23 AM Findings: Frontal chest view shows partial volume loss of the left lung with left basilar atelectasis/infiltrate and minimal if any pleural effusion, decreased compared to last exam. There is small right pleural effusion and probably basilar infiltrate, not significantly changed. Both lungs show otherwise chronic changes with interstitial prominence. The heart is enlarged with median sternotomy noted. There is left pleural thickening/calcificatio ns and multiple remote ribs fractures. There is no mediastinal widening, definite pneumothorax, or other significant interval change. Continued follow-up suggested. Report Dictated on --- Final --- Dictated: 04/11/2020 3:51 pm Dictating Physician: MD SMILEY AHMAD Signed Date and Time: 04/11/2020 3:58 pm Signed by: MD SMILEY AHMAD Transcribed Date and Time: 04/11/2020 3:51 [place], [place] [facility] Incoming Radiology Results From [facility] - 04/11/2020 7:59 AM EDT Patient Name: KAREN KEARNS ---Diagnostic Radiology--- Exam Date/Time 04/11/2020 06:42:29 EDT Exam CR Chest Portable Ordering Physician YANIQUE LACEY MATTHEW R. Accession Number [id number] CPT4 Codes 42079 () Reason For Exam aspiration Report Portable chest, single view Clinical: Aspiration COMPARISON: April 10, 2020 Prior median sternotomy changes. The heart size is stable. Left-sided calcified pleural plaque. Left retrocardiac infiltrate/atelectasis appears unchanged. Small pleural effusions are again noted. Multiple remote appearing left-sided rib fracture deformities. Degenerative changes of the spine. Report Dictated on --- Final --- Dictated: 04/11/2020 7:56 am Dictating Physician: MD MACK BRIAN Signed Date and Time: 04/11/2020 7:58 am Signed by: MD MACK BRIAN Transcribed Date and Time: 04/11/2020 7:56 [place] Patient Name: KAREN KEARNS ---Diagnostic Radiology--- Exam Date/Time 04/11/2020 06:42:29 EDT Exam CR Chest Portable Ordering Physician YANIQUE LACEY MATTHEW R. Accession Number [id number] CPT4 Codes 09372 () Reason For Exam aspiration Report Portable chest, single view Clinical: Aspiration COMPARISON: April 10, 2020 Prior median sternotomy changes. The heart size is stable. Left-sided calcified pleural plaque. Left retrocardiac infiltrate/atelectasis appears unchanged. Small pleural effusions are again noted. Multiple remote appearing left-sided rib fracture deformities. Degenerative changes of the spine. Report Dictated on --- Final --- Dictated: 04/11/2020 7:56 am Dictating Physician: MD MACK BRIAN Signed Date and Time: 04/11/2020 7:58 am Signed by: MD MACK BRIAN Transcribed Date and Time: 04/11/2020 7:56 [facility] [place], [place] Basic Metabolic Panelon 10-2 Calcium [Mass/Vol] 7.8 mg/dL Low 8.4-10.4 [facility] Comment on above: Performed By: #### H EMOG, BMP3, LFT3 ####[address] [place], [place] Glucose [Mass/Vol] 120 mg/dL High 70-100 [facility] Comment on above: Performed By: #### H EMOG, BMP3, LFT3 ####[address] [place] [address] Anion Gap 7 Normal [facility] Comment on above: Performed By: #### H EMOG, BMP3, LFT3 ####[facility] [address], [place] CO2 [Moles/Vol] 32 mmol/L High 22-30 [facility] Comment on above: Performed By: #### H EMOG, BMP3, LFT3 ####[facility] [id number], [place] Creatinine [Mass/Vol] 1.64 mg/dL High 0.52-1.25 [facility] Comment on above: Performed By: #### H EMOG, BMP3, LFT3 ####[facility] [address] [place] [address] GFR/1.73 sq M.predicted among blacks MDRD (S/P/Bld) [Vol rate/Area] 44.8 mL/min/{1.73_m2} Abnormal >60 [facility] Comment on above: Performed By: #### H EMOG, BMP3, LFT3 ####[facility] [address] [place] [address] GFR/1.73 sq M.predicted among non-blacks MDRD (S/P/Bld) [Vol rate/Area] 38.7 mL/min/{1.73_m2} Abnormal >60 [facility] Comment on above: Result Comment: KDIG O guidelines provide the following GFR categories:Stage GFR(ml/min/1.73 m2) TermsG1 >=90 Normal or highG2 60-89 Mildly decreased*G3a 45-59 Mildly to moderately [id number] 30-44 Moderately to severely decreasedG4 15-29 Severely decreasedG5 <15 Kidney failure*Relative to young adult level.In the absence of evidence of kidney damage, neither GFRcategory G1 nor G2 fulfill the criteria for CKD.The CKD-EPI equation is validated in individuals 18 yearsof age and older. Currently the best equation forestimating glomerular filtration rate (GFR) from serumcreatinine in children is the Bedside Pelletier equation.It is less accurate in patients with extremes of musclemass, restriction of dietary protein, ingestion of creatine,extra-renal metabolism of creatinine, or treatment withmedications that affect renal tubular creatinine secretion. Performed By: #### H EMOG, BMP3, LFT3 ####[facility] [address] [place] [address] Urea nitrogen [Mass/Vol] 53 mg/dL High 7-20 [facility] Comment on above: Performed By: #### H EMOG, BMP3, LFT3 ####[facility] [id number] [place] [address] Chloride [Moles/Vol] 100 mmol/L Normal 98-107 [facility] Comment on above: Performed By: #### H EMOG, BMP3, LFT3 ####[facility] [address] [place] [address] Potassium [Moles/Vol] 4.4 mmol/L Normal 3.5-5.1 [facility] Comment on above: Result Comment: Slig htly hemolysed, interpret with caution. Performed By: #### H EMOG, BMP3, LFT3 ####[facility] [id number] [place] [address] Sodium [Moles/Vol] 138 mmol/L Normal 135-145 [facility] Comment on above: Performed By: #### H EMOG, BMP3, LFT3 ####[facility] [place] [address] Anion gap [Moles/Vol] 7 mmol/L [place], [place] Calcium [Mass/Vol] 7.8 mg/dL Low 8.4 - 10. 4 mg/dL [place], [place] Chloride [Moles/Vol] 100 mmol/L 98 - 10 7 mmol/L [place] CO2 [Moles/Vol] 32 mmol/L High 22 - 30 mmol/L [place] Creatinine [Mass/Vol] 1.64 mg/dL High 0.52 - 1.25 mg/dL [place], [place] EGFR IF NonAfrican Albanian 38.7 mL/min Abnormal >60 [place], [place] Comment on above: KDIGO guidelines pro vide the following GFR categories: Stage GFR(ml/min/1.73 m2) Terms G1 >=90 Normal or high G2 60-89 Mildly decreased* G3a 45-59 Mildly to moderately decreased G3b 30-44 Moderately to severely decreased G4 15-29 Severely decreased G5 <15 Kidney failure *Relative to young adult level. In the absence of evidence of kidney damage, neither GFR category G1 nor G2 fulfill the criteria for CKD. The CKD-EPI equation is validated in individuals 18 years of age and older. Currently the best equation for estimating glomerular filtration rate (GFR) from serum creatinine in children is the Bedside Pelletier equation. It is less accurate in patients with extremes of muscle mass, restriction of dietary protein, ingestion of creatine, extra-renal metabolism of creatinine, or treatment with medications that affect renal tubular creatinine secretion. GFR/1.73 sq M predicted among blacks MDRD (S/P/Bld) [Vol rate/Area] 44.8 mL/min/{1.73_m2} Abnormal >60 [place], [place] Glucose [Mass/Vol] 120 mg/dL High 70 - 100 mg/dL [place] Potassium [Moles/Vol] 4.4 mmol/L 3.5 - 5.1 mmol/L [place] Comment on above: Slightly hemolysed, interpret with caution. Sodium [Moles/Vol] 138 mmol/L 135 - 145 mmol/L [place] Urea nitrogen [Mass/Vol] 53 mg/dL High 7 - 20 mg/dL [place] CBCon 04-10-2020 Erythrocyte distribution width (RBC) [Ratio] 18.5 % High 11.5 - 14.5 % [place] Hematocrit (Bld) [Volume fraction] 24.8 % Low 40 - 52 % [place] Hemoglobin (Bld) [Mass/Vol] 8.0 g/dL Low 13 - 18 g/dL [place] Interpretation and review of laboratory results Abnormal [place] MCH (RBC) [Entitic mass] 30.8 pg 26 - 34 pg [place] MCHC (RBC) [Mass/Vol] 32.3 % 32 - 36 % [place] MCV (RBC) [Entitic vol] 95.6 fL 80 - 98 fL [place], [place] Platelet mean volume (Bld) [Entitic vol] 8.7 fL 7.4 - 10.4 fL [place] Platelets (Bld) [#/Vol] 418 10*3/uL 140 - 440 10*3/uL [place] RBC (Bld) [#/Vol] 2.60 10*6/uL Low 4.4 - 5.9 10*6/uL [place] WBC (Bld) [#/Vol] 15.7 10*3/uL High 3.6 - 10.7 10*3/uL [place] Test Performed by [facility], [address] [place] [address] [place], [place] CR Chest Portableon 04-10-20 20 CR Chest Portable Normal [facility] Calcium, Ionizedon 0 Ionized Ca 4.30 mg/dL 4.3 - 5.2 mg/dL [place], [place] pH (Bld) 7.46 [pH] [place] Test Performed by [facility], [facility] [place] [address] [place], [place] Calcium,Ionizedon 04-10-2020 Ionized Ca,Measured 4.30 mg/dL Normal 4.30-5.20 [facility] Comment on above: Performed By: #### I CA ####[address] pH, Ionized Calcium 7.46 Normal 7.31-7.46 [facility] Comment on above: Performed By: #### I CA ####[address] Hemogramon 04-10-2020 Erythrocyte distribution width (RBC) [Ratio] 18.5 % High 11.5-14.5 [facility] Comment on above: Performed By: #### H EMONarcisa BMP3, LFT3 ####[address] Hematocrit (Bld) [Volume fraction] 24.8 % Low 40.0-52.0 [facility] Comment on above: Performed By: #### H EMOG, BMP3, LFT3 ####[address] Hemoglobin (Bld) [Mass/Vol] 8.0 g/dL Low 13.0-18.0 [facility] Comment on above: Performed By: #### H EMONarcisa, BMP3, LFT3 ####[address] [place], [place] MCH (RBC) [Entitic mass] 30.8 pg Normal 26.0-34.0 [facility] Comment on above: Performed By: #### H EMOG, BMP3, LFT3 ####[address] MCHC 32.3 % Normal 32.0-36.0 [facility] Comment on above: Performed By: #### H EMOG, BMP3, LFT3 ####[address] MCV (RBC) [Entitic vol] 95.6 fL Normal 80.0-98.0 [facility] Comment on above: Performed By: #### H EMOG, BMP3, LFT3 ####[address] [place], [place] Platelet mean volume (Bld) [Entitic vol] 8.7 fL Normal 7.4-10.4 [facility] Comment on above: Performed By: #### H EMOG, BMP3, LFT3 ####[address] [place], [place] Platelets (Bld) [#/Vol] 418 10*3/uL Normal 140-440 [facility] Comment on above: Performed By: #### H EMOG, BMP3, LFT3 ####[address] [address] [place], [place] RBC (Bld) [#/Vol] 2.60 10*6/uL Low 4.40-5.90 [facility] Comment on above: Performed By: #### H EMOG, BMP3, LFT3 ####[address] [place], [place] WBC (Bld) [#/Vol] 15.7 10*3/uL High 3.6-10.7 [facility] Comment on above: Performed By: #### H EMOG, BMP3, LFT3 ####[address] [place], [place] Hepatic Functionon 0 ALP [Catalytic activity/Vol] 126 U/L Normal 38-126 [facility] Comment on above: Result Comment: Slig htly hemolysed, interpret with caution. Performed By: #### H EMOG, BMP3, LFT3 ####[address] . [place], [place] ALT [Catalytic activity/Vol] 110 U/L High 0-49 [facility] Comment on above: Result Comment: The ALT test is performed by an updated assay method.Please note that the reference intervals have beenchanged and are now sex specific. Performed By: #### H EMOG, BMP3, LFT3 ####[address] [place], [place] AST [Catalytic activity/Vol] 73 U/L High 15-46 [facility] Comment on above: Result Comment: Slig htly hemolysed, interpret with caution. Performed By: #### H EMOG, BMP3, LFT3 ####[address] . [place], [place] Bilirubin [Mass/Vol] 3.1 mg/dL High 0.2-1.3 [facility] Comment on above: Performed By: #### H EMOG, BMP3, LFT3 ####[address] Bilirubin.indirect [Mass/Vol] 0.0 mg/dL Normal 0.0-0.3 [facility] Comment on above: Performed By: #### H EMOG, BMP3, LFT3 ####[address] Protein [Mass/Vol] 6.4 g/dL Normal 6.3-8.2 [facility] Comment on above: Performed By: #### H EMOG, BMP3, LFT3 ####[address] [place], [place] Albumin [Mass/Vol] 3.1 g/dL Low 3.5-5.0 [facility] Comment on above: Performed By: #### H EMOG, BMP3, LFT3 ####[address] Hepatic Function Panelon Albumin [Mass/Vol] 3.1 g/dL Low 3.5 - 5 g/dL [place], [place] ALP [Catalytic activity/Vol] 126 U/L 38 - 126 U/L [place] Comment on above: Slightly hemolysed, interpret with caution. ALT [Catalytic activity/Vol] 110 U/L High 0 - 49 U/L [place] Comment on above: The ALT test is perf ormed by an updated assay method. Please note that the reference intervals have been changed and are now sex specific. AST [Catalytic activity/Vol] 73 U/L High 15 - 46 U/L [place] Comment on above: Slightly hemolysed, interpret with caution. Bilirubin Ql (U) 3.1 mg/dL High 0.2 - 1.3 mg/dL [place] Bilirubin.direct [Mass/Vol] 0.0 mg/dL 0 - 0.3 mg/dL [place] Protein [Mass/Vol] 6.4 g/dL 6.3 - 8.2 g/dL [place] Otheron 04-10-2020 Interpretation and review of laboratory results Abnormal [place] Test Performed by [address] [address] [place], [place] US GUIDE THORACENTESISon Patient Name: KAREN KEARNS ---Ultrasound--- Exam Date/Time 04/10/2020 11:16:13 EDT Exam US Thora-Aspir Pleura w/ Image Ordering Physician YANIQUE LACEY MATTHEW R. Accession Number [id number] CPT4 Codes 30397 () Reason For Exam Pleural Effusion - Report THORACENTESIS RIGHT SIDE CLINICAL INDICATION: Right pleural effusion. Dyspnea. TECHNIQUE: Ultrasound guidance used. FINDINGS: Written informed consent was obtained and placed in the patient's chart for an ultrasound-guided thoracentesis. The exam was performed under the supervision of Dr.even Caal, by Milagros Moody PA-C. Patient was in an upright, seated position. Ultrasound was used to scan and localize a pocket of fluid in the right pleural cavity. Sterile technique was utilized. The skin was cleaned with 2% chlorhexidine. Sterile drapes were placed. I washed my hands prior to the procedure. I wore a cap, mask, sterile gown and sterile gloves during the procedure. After localization of a pocket of fluid, sterile prep and drape was performed. 1% lidocaine was used as local anesthetic. Through this region, and with ultrasound guidance, a Yueh catheter was inserted into the pleural cavity. 1100 mL of moderate pleural effusion was aspirated. The patient tolerated the procedure well and no immediate complications occurred. Ultrasound images are available for viewing. There is also a moderate-sized left effusion. IMPRESSION: Successful right thoracentesis as described above. Report Dictated on --- Final --- Dictated: 04/10/2020 11:10 am Dictating Physician: ANABELL MOODY JENNIFER Signed Date and Time: 04/10/2020 11:11 am Signed by: ANABELL MOODY JENNIFER Transcribed Date and Time: 04/10/2020 11:10 [facility], [place] Pr[facility], [facility] Incoming Radiology Results From [facility] - 04/10/2020 11:16 AM EDT Patient Name: KAREN KEARNS ---Ultrasound--- Exam Date/Time 04/10/2020 11:16:13 EDT Exam US Thora-Aspir Pleura w/ Image Ordering Physician YANIQUE LACEY MATTHEW R. Accession Number [id number] CPT4 Codes 45247 () Reason For Exam Pleural Effusion - Report THORACENTESIS RIGHT SIDE CLINICAL INDICATION: Right pleural effusion. Dyspnea. TECHNIQUE: Ultrasound guidance used. FINDINGS: Written informed consent was obtained and placed in the patient's chart for an ultrasound-guided thoracentesis. The exam was performed under the supervision of Dr.even Caal, by Milagros Moody PA-C. Patient was in an upright, seated position. Ultrasound was used to scan and localize a pocket of fluid in the right pleural cavity. Sterile technique was utilized. The skin was cleaned with 2% chlorhexidine. Sterile drapes were placed. I washed my hands prior to the procedure. I wore a cap, mask, sterile gown and sterile gloves during the procedure. After localization of a pocket of fluid, sterile prep and drape was performed. 1% lidocaine was used as local anesthetic. Through this region, and with ultrasound guidance, a Yueh catheter was inserted into the pleural cavity. 1100 mL of moderate pleural effusion was aspirated. The patient tolerated the procedure well and no immediate complications occurred. Ultrasound images are available for viewing. There is also a moderate-sized left effusion. IMPRESSION: Successful right thoracentesis as described above. Report Dictated on --- Final --- Dictated: 04/10/2020 11:10 am Dictating Physician: ANABELL MOODY JENNIFER Signed Date and Time: 04/10/2020 11:11 am Signed by: ANABELL MOODY JENNIFER Transcribed Date and Time: 04/10/2020 11:10 [facility], [place] US Thora-Aspir Pleura w/ Verna geon 04-10-2020 US Thora-Aspir Pleura w/ Image Normal [facility] XR CHEST PORTABLEon 04-10-20 Patient Name: KAREN KEARNS ---Diagnostic Radiology--- Exam Date/Time 04/10/2020 06:44:41 EDT Exam CR Chest Portable Ordering Physician YANIQUE LACEY MATTHEW R. Accession Number [id number] CPT4 Codes 84836 () Reason For Exam aspiration Report CHEST - PORTABLE: CLINICAL INDICATION: Respiratory distress for follow up TECHNIQUE: Portable AP COMPARISON: One day ago FINDINGS: Heart/Mediastinum: Heart is enlarged. There is elongated calcified focus overlying the heart and the region of the mediastinal reflection Lungs/Pleura: Homogeneous increased density in the lower hemithoraces resulting blunting of the costophrenic angles, corresponding to pleural effusions. There is no other upper lobe consolidation. Other: Old left rib fractures are noted IMPRESSION: Pleural effusions unchanged. Calcified pleural plaque Report Dictated on Workstation: [id number] --- Final --- Dictated: 04/10/2020 6:42 am Dictating Physician: MD HERNANDEZ JEFFREY Signed Date and Time: 04/10/2020 6:43 am Signed by: MD HERNANDEZ JEFFREY Transcribed Date and Time: 04/10/2020 6:42 [place], [place] Prabhu, [facility] Incoming Radiology Results From [facility] - 04/10/2020 6:45 AM EDT Patient Name: KAREN KEARNS ---Diagnostic Radiology--- Exam Date/Time 04/10/2020 06:44:41 EDT Exam CR Chest Portable Ordering Physician YANIQUE LACEY MATTHEW R. Accession Number [id number] CPT4 Codes 04126 () Reason For Exam aspiration Report CHEST - PORTABLE: CLINICAL INDICATION: Respiratory distress for follow up TECHNIQUE: Portable AP COMPARISON: One day ago FINDINGS: Heart/Mediastinum: Heart is enlarged. There is elongated calcified focus overlying the heart and the region of the mediastinal reflection Lungs/Pleura: Homogeneous increased density in the lower hemithoraces resulting blunting of the costophrenic angles, corresponding to pleural effusions. There is no other upper lobe consolidation. Other: Old left rib fractures are noted IMPRESSION: Pleural effusions unchanged. Calcified pleural plaque Report Dictated on Workstation: [id number] --- Final --- Dictated: 04/10/2020 6:42 am Dictating Physician: MD HERNANDEZ JEFFREY Signed Date and Time: 04/10/2020 6:43 am Signed by: MD HERNANDEZ JEFFREY Transcribed Date and Time: 04/10/2020 6:42 [facility], [place] Basic Metabolic Panelon 10-2 Anion Gap 9 Normal [facility] Comment on above: Performed By: #### H VIDAL LFT3, BMP3 ####[address] [place], [place] Calcium [Mass/Vol] 8.2 mg/dL Low 8.4-10.4 [facility] Comment on above: Performed By: #### H EMONarcisa LFT3, BMP3 ####[address] [place], [place] CO2 [Moles/Vol] 32 mmol/L High 22-30 [facility] Comment on above: Performed By: #### H EMONarcisa, LFT3, BMP3 ####[address] [place] [address] Glucose [Mass/Vol] 125 mg/dL High 70-100 [facility] Comment on above: Performed By: #### H EMONarcisa, LFT3, BMP3 ####[address] [place], [place] Urea nitrogen [Mass/Vol] 54 mg/dL High 7-20 [facility] Comment on above: Performed By: #### H EMONarcisa, LFT3, BMP3 ####[address] [place], [place] Creatinine [Mass/Vol] 1.73 mg/dL High 0.52-1.25 [facility] Comment on above: Performed By: #### H EMOG, LFT3, BMP3 ####[address] [place] [address] GFR/1.73 sq M.predicted among blacks MDRD (S/P/Bld) [Vol rate/Area] 42.0 mL/min/{1.73_m2} Abnormal >60 [facility] Comment on above: Performed By: #### H EMOG, LFT3, BMP3 ####[facility] [address] [address] GFR/1.73 sq M.predicted among non-blacks MDRD (S/P/Bld) [Vol rate/Area] 36.2 mL/min/{1.73_m2} Abnormal >60 [facility] Comment on above: Result Comment: KDIG O guidelines provide the following GFR categories:Stage GFR(ml/min/1.73 m2) TermsG1 >=90 Normal or highG2 60-89 Mildly decreased*G3a 45-59 Mildly to moderately [id number] 30-44 Moderately to severely decreasedG4 15-29 Severely decreasedG5 <15 Kidney failure*Relative to young adult level.In the absence of evidence of kidney damage, neither GFRcategory G1 nor G2 fulfill the criteria for CKD.The CKD-EPI equation is validated in individuals 18 yearsof age and older. Currently the best equation forestimating glomerular filtration rate (GFR) from serumcreatinine in children is the Bedside Pelletier equation.It is less accurate in patients with extremes of musclemass, restriction of dietary protein, ingestion of creatine,extra-renal metabolism of creatinine, or treatment withmedications that affect renal tubular creatinine secretion. Performed By: #### H EMOG, LFT3, BMP3 ####[facility] [address] Chloride [Moles/Vol] 98 mmol/L Normal 98-107 [facility] Comment on above: Performed By: #### H EMONarcisa, LFT3, BMP3 ####[facility] [address] Potassium [Moles/Vol] 3.8 mmol/L Normal 3.5-5.1 [facility] Comment on above: Performed By: #### H EMOG, LFT3, BMP3 ####[facility] [place] [address] Sodium [Moles/Vol] 139 mmol/L Normal 135-145 [facility] Comment on above: Performed By: #### H KUSUM DRAKET3, BMP3 ####[address] [place] [address] Anion gap [Moles/Vol] 9 mmol/L [place], [place] Calcium [Mass/Vol] 8.2 mg/dL Low 8.4 - 10. 4 mg/dL [place] Chloride [Moles/Vol] 98 mmol/L 98 - 10 7 mmol/L [place] CO2 [Moles/Vol] 32 mmol/L High 22 - 30 mmol/L [place] Creatinine [Mass/Vol] 1.73 mg/dL High 0.52 - 1.25 mg/dL [place], [place] EGFR IF NonAfrican [place]ian 36.2 mL/min Abnormal >60 [place] Comment on above: KDIGO guidelines pro vide the following GFR categories: Stage GFR(ml/min/1.73 m2) Terms G1 >=90 Normal or high G2 60-89 Mildly decreased* G3a 45-59 Mildly to moderately decreased G3b 30-44 Moderately to severely decreased G4 15-29 Severely decreased G5 <15 Kidney failure *Relative to young adult level. In the absence of evidence of kidney damage, neither GFR category G1 nor G2 fulfill the criteria for CKD. The CKD-EPI equation is validated in individuals 18 years of age and older. Currently the best equation for estimating glomerular filtration rate (GFR) from serum creatinine in children is the Bedside Pelletier equation. It is less accurate in patients with extremes of muscle mass, restriction of dietary protein, ingestion of creatine, extra-renal metabolism of creatinine, or treatment with medications that affect renal tubular creatinine secretion. GFR/1.73 sq M predicted among blacks MDRD (S/P/Bld) [Vol rate/Area] 42.0 mL/min/{1.73_m2} Abnormal >60 [place] Glucose [Mass/Vol] 125 mg/dL High 70 - 100 mg/dL [place] Potassium [Moles/Vol] 3.8 mmol/L 3.5 - 5.1 mmol/L [place] Sodium [Moles/Vol] 139 mmol/L 135 - 145 mmol/L [place], [place] Urea nitrogen [Mass/Vol] 54 mg/dL High 7 - 20 mg/dL [place] CBCon 04-09-2020 Erythrocyte distribution width (RBC) [Ratio] 18.5 % High 11.5 - 14.5 % [place] Hematocrit (Bld) [Volume fraction] 25.3 % Low 40 - 52 % [place] Hemoglobin (Bld) [Mass/Vol] 8.4 g/dL Low 13 - 18 g/dL [place] Interpretation and review of laboratory results Abnormal [place] MCH (RBC) [Entitic mass] 31.0 pg 26 - 34 pg [place] MCHC (RBC) [Mass/Vol] 33.1 % 32 - 36 % [place] MCV (RBC) [Entitic vol] 93.6 fL 80 - 98 fL [place] Platelet mean volume (Bld) [Entitic vol] 8.2 fL 7.4 - 10.4 fL [place] Platelets (Bld) [#/Vol] 438 10*3/uL 140 - 440 10*3/uL [place] RBC (Bld) [#/Vol] 2.70 10*6/uL Low 4.4 - 5.9 10*6/uL [place] WBC (Bld) [#/Vol] 18.3 10*3/uL High 3.6 - 10.7 10*3/uL [place] Test Performed by [facility], [address] [place] [address] [place] CR Chest Portableon 04-09-20 20 CR Chest Portable Normal [facility] Abdomen Pelvis Wo Contras ton 04-09-2020 Patient Name: KAREN KEARNS ---CT--- Exam Date/Time 04/09/2020 10:30:[address] Abdomen/Pelvis (No PO, No IV) Ordering Physician YANIQUE LACEY MATTHEW R. Accession Number [id number] CPT4 Codes 65982 (CT Abdomen/Pelvis (No PO, No IV)) Reason For Exam elevated white count Report CT scan abdomen: 04/09/[address] scan pelvis: 04/09/2020 . Clinical Information: Elevated white count . CT scan abdomen: CT scans of the abdomen were performed at 3 mm slice thickness with no oral or intravenous contrast as requested. CT scan chest performed separately same day. No prior studies for comparison. Without the administration of oral or intravenous contrast, evaluation of solid and hollow organs is limited. There are large cysts in the liver, primarily encompassing the entire left lobe of the liver. No other focal abnormalities are identified within the liver. The liver, spleen and pancreas are otherwise grossly normal. No free peritoneal fluid or air is seen. No retroperitoneal lymphadenopathy is identified. The kidneys are within normal limits without evidence of hydronephrosis. No abnormal calcifications are identified in the kidneys or along the course of the ureters. CT scan pelvis: CT scans the pelvis were performed at 3 mm slice thickness with no oral or intravenous contrast as requested. No abnormal loops of bowel are identified. No inflammatory changes in the mesentery are seen. The prostate is prominent. No pelvic mass lesions, fluid collections or lymphadenopathy is seen. No abnormal calcifications are identified to suggest distal ureteral calculi. Impression: Study limited due to lack of contrast. Large liver cyst. Prostatic hypertrophy. No abnormalities otherwise identified. Report Dictated on --- Final --- Dictated: 04/09/2020 12:34 pm Dictating Physician: MD OWENS RISA Signed Date and Time: 04/09/2020 2:48 pm Signed by: MD OWENS RISA Transcribed Date and Time: 04/09/2020 12:34 [facility], [place] [facility], [facility] - 04/09/2020 2:49 PM EDT Patient Name: KAREN KEARNS [facility]: [id number] ---CT--- Exam Date/Time 04/09/2020 10:30:[address] Abdomen/Pelvis (No PO, No IV) Ordering Physician YANIQUE LACEY MATTHEW R. Accession Number [id number] CPT4 Codes 75772 (CT Abdomen/Pelvis (No PO, No IV)) Reason For Exam elevated white count Report CT scan abdomen: 04/09/[address] scan pelvis: 04/09/2020 . Clinical Information: Elevated white count . CT scan abdomen: CT scans of the abdomen were performed at 3 mm slice thickness with no oral or intravenous contrast as requested. CT scan chest performed separately same day. No prior studies for comparison. Without the administration of oral or intravenous contrast, evaluation of solid and hollow organs is limited. There are large cysts in the liver, primarily encompassing the entire left lobe of the liver. No other focal abnormalities are identified within the liver. The liver, spleen and pancreas are otherwise grossly normal. No free peritoneal fluid or air is seen. No retroperitoneal lymphadenopathy is identified. The kidneys are within normal limits without evidence of hydronephrosis. No abnormal calcifications are identified in the kidneys or along the course of the ureters. CT scan pelvis: CT scans the pelvis were performed at 3 mm slice thickness with no oral or intravenous contrast as requested. No abnormal loops of bowel are identified. No inflammatory changes in the mesentery are seen. The prostate is prominent. No pelvic mass lesions, fluid collections or lymphadenopathy is seen. No abnormal calcifications are identified to suggest distal ureteral calculi. Impression: Study limited due to lack of contrast. Large liver cyst. Prostatic hypertrophy. No abnormalities otherwise identified. Report Dictated on --- Final --- Dictated: 04/09/2020 12:34 pm Dictating Physician: MD OWENS RISA Signed Date and Time: 04/09/2020 2:48 pm Signed by: MD OWENS RISA Transcribed Date and Time: 04/09/2020 12:34 [place], [place] CT Abdomen/Pelvis w/o Contra ston 04-09-2020 CT Abdomen/Pelvis w/o Contrast Normal [facility] CT CHEST WO CONTRASTon 04-09 Patient Name: KAREN KEARNS ---CT--- Exam Date/Time 04/09/2020 10:27:[address] Chest w/o Contrast Ordering Physician YANIQUE LACEY MATTHEW R. Accession Number [id number] CPT4 Codes 87819 (CT Chest w/o Contrast) Reason For Exam eval effusion Report CT scan chest: 04/09/2020. CLINICAL INFORMATION: Pleural effusion. FINDINGS: CT scans of the chest were performed at thin section imaging in the axial plane with sagittal and coronal reconstructions with no intravenous contrast as requested. Without the administration of intravenous contrast, evaluation the mediastinum and hilum is limited. No prior studies for comparison. There is a moderately large right pleural effusion. There is extensive compression atelectasis in the right lower lobe. There is a smaller left pleural effusion with minimal left basal atelectasis. There is respiratory motion throughout the examination which could obscure small nodules. No parenchymal mass lesions or infiltrates are otherwise identified. No gross mediastinal or hilar lymphadenopathy is seen. There is a small paracardial effusion. There are numerous healed rib fractures on the left. CT scan abdomen performed separately same day. IMPRESSION: Bilateral pleural effusions and compression atelectasis both lung bases, right significantly greater than left. Small paracardial effusion. Report Dictated on --- Final --- Dictated: 04/09/2020 12:21 pm Dictating Physician: MD OWENS RISA Signed Date and Time: 04/09/2020 12:25 pm Signed by: MD OWENS RISA Transcribed Date and Time: 04/09/2020 12:21 [place], [place] [facility], [facility] Incoming Radiology Results From [facility] - 04/09/2020 12:27 PM EDT Patient Name: KAREN KEARNS ---CT--- Exam Date/Time 04/09/2020 10:27:[address] Chest w/o Contrast Ordering Physician YANIQUE LACEY MATTHEW R. Accession Number [id number] CPT4 Codes 46196 (CT Chest w/o Contrast) Reason For Exam eval effusion Report CT scan chest: 04/09/2020. CLINICAL INFORMATION: Pleural effusion. FINDINGS: CT scans of the chest were performed at thin section imaging in the axial plane with sagittal and coronal reconstructions with no intravenous contrast as requested. Without the administration of intravenous contrast, evaluation the mediastinum and hilum is limited. No prior studies for comparison. There is a moderately large right pleural effusion. There is extensive compression atelectasis in the right lower lobe. There is a smaller left pleural effusion with minimal left basal atelectasis. There is respiratory motion throughout the examination which could obscure small nodules. No parenchymal mass lesions or infiltrates are otherwise identified. No gross mediastinal or hilar lymphadenopathy is seen. There is a small paracardial effusion. There are numerous healed rib fractures on the left. CT scan abdomen performed separately same day. IMPRESSION: Bilateral pleural effusions and compression atelectasis both lung bases, right significantly greater than left. Small paracardial effusion. Report Dictated on --- Final --- Dictated: 04/09/2020 12:21 pm Dictating Physician: MD OWENS RISA Signed Date and Time: 04/09/2020 12:25 pm Signed by: MD OWENS RISA Transcribed Date and Time: 04/09/2020 12:21 [place], [place] CT Chest w/o Contraston 03-16 CT Chest w/o Contrast Normal [facility] Hemogramon 04-09-2020 Erythrocyte distribution width (RBC) [Ratio] 18.5 % High 11.5-14.5 [facility] Comment on above: Performed By: #### H EMONarcisa, LFT3, BMP3 ####[id number] [place], [place] Hematocrit (Bld) [Volume fraction] 25.3 % Low 40.0-52.0 [facility] Comment on above: Performed By: #### H EMONarcisa, LFT3, BMP3 ####[id number] [place], [place] Hemoglobin (Bld) [Mass/Vol] 8.4 g/dL Low 13.0-18.0 [facility] Comment on above: Performed By: #### H EMOG, LFT3, BMP3 ####[id number] [place], [place] MCH (RBC) [Entitic mass] 31.0 pg Normal 26.0-34.0 [facility] Comment on above: Performed By: #### H EMOG, LFT3, BMP3 ####[id number] [place], [place] MCHC 33.1 % Normal 32.0-36.0 [facility] Comment on above: Performed By: #### H EMOG, LFT3, BMP3 ####[address] MCV (RBC) [Entitic vol] 93.6 fL Normal 80.0-98.0 [facility] Comment on above: Performed By: #### H EMONarcisa, LFT3, BMP3 ####[address] Platelet mean volume (Bld) [Entitic vol] 8.2 fL Normal 7.4-10.4 [facility] Comment on above: Performed By: #### H EMOG, LFT3, BMP3 ####[address] Platelets (Bld) [#/Vol] 438 10*3/uL Normal 140-440 [facility] Comment on above: Performed By: #### H EMONarcisa, LFT3, BMP3 ####[id number] [place], [place] RBC (Bld) [#/Vol] 2.70 10*6/uL Low 4.40-5.90 [facility] Comment on above: Performed By: #### H EMONarcisa, LFT3, BMP3 ####[address] WBC (Bld) [#/Vol] 18.3 10*3/uL High 3.6-10.7 [facility] Comment on above: Performed By: #### H EMONarcisa, LFT3, BMP3 ####[address] Hepatic Functionon 04-09- 0 ALP [Catalytic activity/Vol] 159 U/L High 38-126 [facility] Comment on above: Performed By: #### H EMOG, LFT3, BMP3 ####[address] ALT [Catalytic activity/Vol] 111 U/L High 0-49 [facility] Comment on above: Result Comment: The ALT test is performed by an updated assay method.Please note that the reference intervals have beenchanged and are now sex specific. Performed By: #### H EMOG, LFT3, BMP3 ####[facility] [id number] [place], [place] AST [Catalytic activity/Vol] 66 U/L High 15-46 [facility] Comment on above: Performed By: #### H EMOG, LFT3, BMP3 ####[facility] [id number] [place], [place] Bilirubin [Mass/Vol] 4.1 mg/dL High 0.2-1.3 [facility] Comment on above: Performed By: #### H EMOG, LFT3, BMP3 ####[facility] [id number] [place], [place] Bilirubin.indirect [Mass/Vol] 0.4 mg/dL High 0.0-0.3 [facility] Comment on above: Performed By: #### H EMOG, LFT3, BMP3 ####[facility] [id number] [place], [place] Protein [Mass/Vol] 6.9 g/dL Normal 6.3-8.2 [facility] Comment on above: Performed By: #### H EMOG, LFT3, BMP3 ####[facility] [id number] [place], [place] Albumin [Mass/Vol] 3.4 g/dL Low 3.5-5.0 [facility] Comment on above: Performed By: #### H EMOG, LFT3, BMP3 ####[facility] [id number] [place], [place] Hepatic Function Panelon Albumin [Mass/Vol] 3.4 g/dL Low 3.5 - 5 g/dL [place], [place] ALP [Catalytic activity/Vol] 159 U/L High 38 - 126 U/L [place], [place] ALT [Catalytic activity/Vol] 111 U/L High 0 - 49 U/L [place] Comment on above: The ALT test is perf ormed by an updated assay method. Please note that the reference intervals have been changed and are now sex specific. AST [Catalytic activity/Vol] 66 U/L High 15 - 46 U/L [facility] PETER Bilirubin Ql (U) 4.1 mg/dL High 0.2 - 1.3 mg/dL [place], [place] Bilirubin.direct [Mass/Vol] 0.4 mg/dL High 0 - 0.3 mg/dL [facility] PETER Protein [Mass/Vol] 6.9 g/dL 6.3 - 8.2 g/dL [email or web address] Otheron 04-09-2020 Interpretation and review of laboratory results Abnormal [facility] PETER Test Performed by [facility], [address] [place] [id number] [place], [place] VL DUP LOWER EXTREMITY VENOU S BILATERALon 04-09-2020 Prabhu, [facility] Cardiology Results From [facility] - 04/09/2020 7:39 AM EDT [facility] -- Lower Extremity Venous Duplex Report Ordering Physician: Kael Kearns [employer] Worker: Kayleigh Olivier RVT Interpreting Physician: Sea Jones MD -- Location: [facility] -- Indications: Edema right thigh. Edema left thigh. -- CRITICAL RESULTS: A critical finding, was reported to Maryam by Kayleigh Olivier RVT , on 04/08/2020 , at 12:15 PM. Correct read-back was verified. -- Conclusions 1. Study shows an acute deep vein thrombosis noted in the right peroneal veins and right gastrocnemius veins. 2. Study shows an acute superficial vein thrombosis noted in the left great saphenous vein. 3. 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 -- History: Risk factors: Hypertension. Hyperlipidemia. Age over 65 years. -- Study data: Complete lower extremity venous duplex evaluation. Grayscale 2D imaging, color Doppler imaging, and spectral Doppler analysis. Location: Bedside. Procedure: A vascular evaluation was performed with the patient in the supine position. Images were obtained using a GE Vivid E9 vascular ultrasound machine. -- Venous flow and imaging: + + --+--------+ ------+ -+ +Location +Overall +Thrombus+Properties +Comments + + + --+--------+ ------+ -+ +R CFV +Patent +--------+Normal phasicity;+ -----+ + + + +spontaneous; + + + + + +normal + + + + + +augmentation; + + + + + +compressible + + + + --+--------+ ------+ -+ +R +Patent +--------+Compressible + + +saphenofemo+ + + + + +ral + + + + + +junction + + + + + + + --+--------+ ------+ -+ +R profunda +Patent +--------+Normal phasicity;+ -----+ +femoral + + +spontaneous; + + + + + +normal + + + + + +augmentation + + + + --+--------+ ------+ -+ +R FV - +Patent +--------+Compressible + + +prox. + + + + + + + --+--------+ ------+ -+ +R FV - mid +Patent +--------+Normal phasicity;+ -----+ + + + +spontaneous; + + + + + +normal + + + + + +augmentation; + + + + + +compressible + + + + --+--------+ ------+ -+ +R FV - +Patent +--------+Compressible + + +distal + + + + + + + --+--------+ ------+ -+ +R popliteal+Patent +--------+Normal phasicity;+ -----+ + + + +spontaneous; + + + + + +normal + + + + + +augmentation; + + + + + +compressible; + + + + + +reflux present by+ + + + + +compression + + + + --+--------+ ------+ -+ +R +Totally +Acute +Noncompressible + + +gastrocnemi+occluded + + + + +us + + + + + + + --+--------+ ------+ -+ +R PTV +Patent +--------+Compressible + + + + --+--------+ ------+ -+ +R peroneal +Partially +Acute +Noncompressible + + + +occluded + + + + + + --+--------+ ------+ -+ +R soleal +Patent +--------+Compressible + + + + --+--------+ ------+ -+ +R GSV +Patent +--------+Compressible + + + + --+--------+ ------+ -+ +L CFV +Patent +--------+Normal phasicity;+ -----+ + + + +spontaneous; + + + + + +normal + + + + + +augmentation; + + + + + +compressible + + + + --+--------+ ------+ -+ +L +Patent +--------+Compressible + + +saphenofemo+ + + + + +ral + + + + + +junction + + + + + + + --+--------+ ------+ -+ +L profunda +Patent +--------+Normal phasicity;+ -----+ +femoral + + +spontaneous; + + + + + +normal + + + + + +augmentation + + + + --+--------+ ------+ -+ +L FV - +Patent +--------+Compressible + + +prox. + + + + + + + --+--------+ ------+ -+ +L FV - mid +Patent +--------+Normal phasicity;+ -----+ + + + +spontaneous; + + + + + +normal + + + + + +augmentation; + + + + + +compressible + + + + --+--------+ ------+ -+ +L FV - +Patent +--------+Compressible + + +distal + + + + + + + --+--------+ ------+ -+ +L popliteal+Patent +--------+Normal phasicity;+ -----+ + + + +spontaneous; + + + + + +normal + + + + + +augmentation; + + + + + +compressible + + + + --+--------+ ------+ -+ +L +Patent +--------+Compressible + + +gastrocnemi+ + + + + +us + + + + + + + --+--------+ ------+ -+ +L PTV +Patent +--------+Compressible + + + + --+--------+ ------+ -+ +L peroneal +Patent +--------+Compressible + + + + --+--------+ ------+ -+ +L soleal +Patent +--------+Compressible + + + + --+--------+ ------+ -+ +L GSV +Totally +Acute +Noncompressible +Great saphenous + + +occluded + + +vein has recently+ + + + + +been harvested. + + + + + +Saphenofemoral + + + + + +junction is + + + + + +patent and + + + + + +compressible. + + + --+--------+ ------+ -+ +L SSV +Partially +Chronic +Partially + + + +occluded + +compressible + + + + --+--------+ ------+ -+ Prepared and electronically signed by Sea Jones MD 04/09/2020 07:39 [facility] [place] -- Lower Extremity Venous Duplex Report Ordering Physician: Kael Kearns [employer] Worker: Kayleigh Olivier RVT Interpreting Physician: Sea Jones MD -- Location: [facility] -- Indications: Edema right thigh. Edema left thigh. -- CRITICAL RESULTS: A critical finding, was reported to Maryam by Kayleigh Olivier RVT , on 04/08/2020 , at 12:15 PM. Correct read-back was verified. -- Conclusions 1. Study shows an acute deep vein thrombosis noted in the right peroneal veins and right gastrocnemius veins. 2. Study shows an acute superficial vein thrombosis noted in the left great saphenous vein. 3. 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 -- History: Risk factors: Hypertension. Hyperlipidemia. Age over 64 years. -- Study data: Complete lower extremity venous duplex evaluation. Grayscale 2D imaging, color Doppler imaging, and spectral Doppler analysis. Location: Bedside. Procedure: A vascular evaluation was performed with the patient in the supine position. Images were obtained using a [employer] Vivid E9 vascular ultrasound machine. -- Venous flow and imaging: + + --+--------+ ------+ -+ +Location +Overall +Thrombus+Properties +Comments + + + --+--------+ ------+ -+ +R CFV +Patent +--------+Normal phasicity;+ -----+ + + + +spontaneous; + + + + + +normal + + + + + +augmentation; + + + + + +compressible + + + + --+--------+ ------+ -+ +R +Patent +--------+Compressible + + +saphenofemo+ + + + + +ral + + + + + +junction + + + + + + + --+--------+ ------+ -+ +R profunda +Patent +--------+Normal phasicity;+ -----+ +femoral + + +spontaneous; + + + + + +normal + + + + + +augmentation + + + + --+--------+ ------+ -+ +R FV - +Patent +--------+Compressible + + +prox. + + + + + + + --+--------+ ------+ -+ +R FV - mid +Patent +--------+Normal phasicity;+ -----+ + + + +spontaneous; + + + + + +normal + + + + + +augmentation; + + + + + +compressible + + + + --+--------+ ------+ -+ +R FV - +Patent +--------+Compressible + + +distal + + + + + + + --+--------+ ------+ -+ +R popliteal+Patent +--------+Normal phasicity;+ -----+ + + + +spontaneous; + + + + + +normal + + + + + +augmentation; + + + + + +compressible; + + + + + +reflux present by+ + + + + +compression + + + + --+--------+ ------+ -+ +R +Totally +Acute +Noncompressible + + +gastrocnemi+occluded + + + + +us + + + + + + + --+--------+ ------+ -+ +R PTV +Patent +--------+Compressible + + + + --+--------+ ------+ -+ +R peroneal +Partially +Acute +Noncompressible + + + +occluded + + + + + + --+--------+ ------+ -+ +R soleal +Patent +--------+Compressible + + + + --+--------+ ------+ -+ +R GSV +Patent +--------+Compressible + + + + --+--------+ ------+ -+ +L CFV +Patent +--------+Normal phasicity;+ -----+ + + + +spontaneous; + + + + + +normal + + + + + +augmentation; + + + + + +compressible + + + + --+--------+ ------+ -+ +L +Patent +--------+Compressible + + +saphenofemo+ + + + + +ral + + + + + +junction + + + + + + + --+--------+ ------+ -+ +L profunda +Patent +--------+Normal phasicity;+ -----+ +femoral + + +spontaneous; + + + + + +normal + + + + + +augmentation + + + + --+--------+ ------+ -+ +L FV - +Patent +--------+Compressible + + +prox. + + + + + + + --+--------+ ------+ -+ +L FV - mid +Patent +--------+Normal phasicity;+ -----+ + + + +spontaneous; + + + + + +normal + + + + + +augmentation; + + + + + +compressible + + + + --+--------+ ------+ -+ +L FV - +Patent +--------+Compressible + + +distal + + + + + + + --+--------+ ------+ -+ +L popliteal+Patent +--------+Normal phasicity;+ -----+ + + + +spontaneous; + + + + + +normal + + + + + +augmentation; + + + + + +compressible + + + + --+--------+ ------+ -+ +L +Patent +--------+Compressible + + +gastrocnemi+ + + + + +us + + + + + + + --+--------+ ------+ -+ +L PTV +Patent +--------+Compressible + + + + --+--------+ ------+ -+ +L peroneal +Patent +--------+Compressible + + + + --+--------+ ------+ -+ +L soleal +Patent +--------+Compressible + + + + --+--------+ ------+ -+ +L GSV +Totally +Acute +Noncompressible +Great saphenous + + +occluded + + +vein has recently+ + + + + +been harvested. + + + + + +Saphenofemoral + + + + + +junction is + + + + + +patent and + + + + + +compressible. + + + --+--------+ ------+ -+ +L SSV +Partially +Chronic +Partially + + + +occluded + +compressible + + + + --+--------+ ------+ -+ Prepared and electronically signed by eSa Jones MD 04/09/2020 07:39 [place], [place] XR CHEST PORTABLEon 04-09-20 Prabhu, [facility] Incoming Radiology Results From [facility] - 04/09/2020 7:27 AM EDT Patient Name: KAREN KEARNS ---Diagnostic Radiology--- Exam Date/Time 04/09/2020 06:20:42 EDT Exam CR Chest Portable Ordering Physician YANIQUE LACEY MATTHEW R. Accession Number [id number] CPT4 Codes 13811 () Reason For Exam aspiration Report Portable chest 04/09/2020: Clinical Information: Aspiration. Findings: A single AP portable view of the chest was obtained at 525 hours. Comparison was made to the prior study prior day. The trachea is midline. The heart is not enlarged. There continues to be increased density behind the heart on the left consistent with left lower lobe atelectasis, effusion or infiltrate. There is layering of a large right pleural effusion. The upper lung coy are clear. Numerous healed rib fractures are present on the left. Report Dictated on --- Final --- Dictated: 04/09/2020 7:25 am Dictating Physician: MD OWENS RISA Signed Date and Time: 04/09/2020 7:26 am Signed by: MD OWENS RISA Transcribed Date and Time: 04/09/2020 7:25 [place], [place] Patient Name: KAREN KEARNS ---Diagnostic Radiology--- Exam Date/Time 04/09/2020 06:20:42 EDT Exam CR Chest Portable Ordering Physician YANIQUE LACEY MATTHEW R. Accession Number [id number] CPT4 Codes 23915 () Reason For Exam aspiration Report Portable chest 04/09/2020: Clinical Information: Aspiration. Findings: A single AP portable view of the chest was obtained at 525 hours. Comparison was made to the prior study prior day. The trachea is midline. The heart is not enlarged. There continues to be increased density behind the heart on the left consistent with left lower lobe atelectasis, effusion or infiltrate. There is layering of a large right pleural effusion. The upper lung coy are clear. Numerous healed rib fractures are present on the left. Report Dictated on --- Final --- Dictated: 04/09/2020 7:25 am Dictating Physician: MD OWENS RISA Signed Date and Time: 04/09/2020 7:26 am Signed by: MD OWENS RISA Transcribed Date and Time: 04/09/2020 7:25 [place], [place] Basic Metabolic Panelon 10- Calcium [Mass/Vol] 7.9 mg/dL Low 8.4-10.4 [facility] Comment on above: Performed By: #### H EMOG, LFT3, BMP3 ####[address] [place] [address] Glucose [Mass/Vol] 127 mg/dL High 70-100 [facility] Comment on above: Performed By: #### H EMOG, LFT3, BMP3 ####[facility] [address] [place], [place] Urea nitrogen [Mass/Vol] 54 mg/dL High 7-20 [facility] Comment on above: Performed By: #### H EMOG, LFT3, BMP3 ####[facility] [address] [place], [place] Anion Gap 8 Normal [facility] Comment on above: Performed By: #### H EMOG, LFT3, BMP3 ####[facility] [address] [place], [place] CO2 [Moles/Vol] 31 mmol/L High 22-30 [facility] Comment on above: Performed By: #### H EMOG, LFT3, BMP3 ####[facility] [address] [place], [place] Creatinine [Mass/Vol] 1.64 mg/dL High 0.52-1.25 [facility] Comment on above: Performed By: #### H EMOG, LFT3, BMP3 ####[facility] [address] [place], [place] GFR/1.73 sq M.predicted among blacks MDRD (S/P/Bld) [Vol rate/Area] 44.8 mL/min/{1.73_m2} Abnormal >60 [facility] Comment on above: Performed By: #### H EMOG, LFT3, BMP3 ####[facility] [id number] [place], [place] GFR/1.73 sq M.predicted among non-blacks MDRD (S/P/Bld) [Vol rate/Area] 38.7 mL/min/{1.73_m2} Abnormal >60 [facility] Comment on above: Result Comment: KDIG O guidelines provide the following GFR categories:Stage GFR(ml/min/1.73 m2) TermsG1 >=90 Normal or highG2 60-89 Mildly decreased*G3a 45-59 Mildly to moderately [id number] 30-44 Moderately to severely decreasedG4 15-29 Severely decreasedG5 <15 Kidney failure*Relative to young adult level.In the absence of evidence of kidney damage, neither GFRcategory G1 nor G2 fulfill the criteria for CKD.The CKD-EPI equation is validated in individuals 18 yearsof age and older. Currently the best equation forestimating glomerular filtration rate (GFR) from serumcreatinine in children is the Bedside Pelletier equation.It is less accurate in patients with extremes of musclemass, restriction of dietary protein, ingestion of creatine,extra-renal metabolism of creatinine, or treatment withmedications that affect renal tubular creatinine secretion. Performed By: #### H VIDAL LFT3, BMP3 ####[facility] [address] [place], [place] Chloride [Moles/Vol] 98 mmol/L Normal 98-107 [facility] Comment on above: Performed By: #### H VIDAL LFT3, BMP3 ####[facility] [address] [place], [place] Potassium [Moles/Vol] 3.7 mmol/L Normal 3.5-5.1 [facility] Comment on above: Performed By: #### H VIDAL LFT3, BMP3 ####[facility] [address] [place], [place] Sodium [Moles/Vol] 136 mmol/L Normal 135-145 [facility] Comment on above: Performed By: #### H EMONarcisa, LFT3, BMP3 ####[facility] [address] [place], [place] Anion gap [Moles/Vol] 8 mmol/L [place], [place] Calcium [Mass/Vol] 7.9 mg/dL Low 8.4 - 10. 4 mg/dL [place], [place] Chloride [Moles/Vol] 98 mmol/L 98 - 10 7 mmol/L [place] CO2 [Moles/Vol] 31 mmol/L High 22 - 30 mmol/L [place] Creatinine [Mass/Vol] 1.64 mg/dL High 0.52 - 1.25 mg/dL [place] EGFR IF NonAfrican [place]ian 38.7 mL/min Abnormal >60 [place] Comment on above: KDIGO guidelines pro vide the following GFR categories: Stage GFR(ml/min/1.73 m2) Terms G1 >=90 Normal or high G2 60-89 Mildly decreased* G3a 45-59 Mildly to moderately decreased G3b 30-44 Moderately to severely decreased G4 15-29 Severely decreased G5 <15 Kidney failure *Relative to young adult level. In the absence of evidence of kidney damage, neither GFR category G1 nor G2 fulfill the criteria for CKD. The CKD-EPI equation is validated in individuals 18 years of age and older. Currently the best equation for estimating glomerular filtration rate (GFR) from serum creatinine in children is the Bedside Pelletier equation. It is less accurate in patients with extremes of muscle mass, restriction of dietary protein, ingestion of creatine, extra-renal metabolism of creatinine, or treatment with medications that affect renal tubular creatinine secretion. GFR/1.73 sq M predicted among blacks MDRD (S/P/Bld) [Vol rate/Area] 44.8 mL/min/{1.73_m2} Abnormal >60 [place], [place] Glucose [Mass/Vol] 127 mg/dL High 70 - 100 mg/dL [place] Potassium [Moles/Vol] 3.7 mmol/L 3.5 - 5.1 mmol/L [place] Sodium [Moles/Vol] 136 mmol/L 135 - 145 mmol/L [place] Urea nitrogen [Mass/Vol] 54 mg/dL High 7 - 20 mg/dL [place] CBCon 04-08-2020 Erythrocyte distribution width (RBC) [Ratio] 17.7 % High 11.5 - 14.5 % [place] Hematocrit (Bld) [Volume fraction] 24.2 % Low 40 - 52 % [place] Hemoglobin (Bld) [Mass/Vol] 8.0 g/dL Low 13 - 18 g/dL [place] Interpretation and review of laboratory results Abnormal [place] MCH (RBC) [Entitic mass] 30.6 pg 26 - 34 pg [place] MCHC (RBC) [Mass/Vol] 32.8 % 32 - 36 % [place] MCV (RBC) [Entitic vol] 93.3 fL 80 - 98 fL [place] Platelet mean volume (Bld) [Entitic vol] 8.3 fL 7.4 - 10.4 fL [place] Platelets (Bld) [#/Vol] 358 10*3/uL 140 - 440 10*3/uL [place] RBC (Bld) [#/Vol] 2.60 10*6/uL Low 4.4 - 5.9 10*6/uL [place] WBC (Bld) [#/Vol] 17.8 10*3/uL High 3.6 - 10.7 10*3/uL [place] Test Performed by [facility], [address] [place] [address] [place], [place] CR Chest Portableon 04-08-20 20 CR Chest Portable Normal [facility] Hemogramon 04-08-2020 Erythrocyte distribution width (RBC) [Ratio] 17.7 % High 11.5-14.5 [facility] Comment on above: Performed By: #### H EMOG, LFT3, BMP3 ####[address] [place], [place] Hematocrit (Bld) [Volume fraction] 24.2 % Low 40.0-52.0 [facility] Comment on above: Performed By: #### H EMOG, LFT3, BMP3 ####[address] [place], [place] Hemoglobin (Bld) [Mass/Vol] 8.0 g/dL Low 13.0-18.0 [facility] Comment on above: Performed By: #### H EMOG, LFT3, BMP3 ####[address] [place], [place] MCH (RBC) [Entitic mass] 30.6 pg Normal 26.0-34.0 [facility] Comment on above: Performed By: #### H EMOG, LFT3, BMP3 ####[address] [place], [place] MCHC 32.8 % Normal 32.0-36.0 [facility] Comment on above: Performed By: #### H EMOG, LFT3, BMP3 ####[address] [place], [place] MCV (RBC) [Entitic vol] 93.3 fL Normal 80.0-98.0 [facility] Comment on above: Performed By: #### H EMOG, LFT3, BMP3 ####[address] [place], [place] Platelet mean volume (Bld) [Entitic vol] 8.3 fL Normal 7.4-10.4 [facility] Comment on above: Performed By: #### H EMOG, LFT3, BMP3 ####[address] Platelets (Bld) [#/Vol] 358 10*3/uL Normal 140-440 [facility] Comment on above: Performed By: #### H EMOG, LFT3, BMP3 ####[address] RBC (Bld) [#/Vol] 2.60 10*6/uL Low 4.40-5.90 [facility] Comment on above: Performed By: #### H EMOG, LFT3, BMP3 ####[address] WBC (Bld) [#/Vol] 17.8 10*3/uL High 3.6-10.7 [facility] Comment on above: Performed By: #### H EMOG, LFT3, BMP3 ####[address] Hepatic Functionon 04-08-202 0 ALP [Catalytic activity/Vol] 145 U/L High 38-126 [facility] Comment on above: Performed By: #### H EMOG, LFT3, BMP3 ####[address] ALT [Catalytic activity/Vol] 86 U/L High 0-49 [facility] Comment on above: Result Comment: The ALT test is performed by an updated assay method.Please note that the reference intervals have beenchanged and are now sex specific. Performed By: #### H EMONarcisa, LFT3, BMP3 ####[address] [place], [place] AST [Catalytic activity/Vol] 57 U/L High 15-46 [facility] Comment on above: Performed By: #### H EMOG, LFT3, BMP3 ####[address] Bilirubin [Mass/Vol] 4.6 mg/dL High 0.2-1.3 [facility] Comment on above: Performed By: #### H EMOG, LFT3, BMP3 ####[address] Protein [Mass/Vol] 6.2 g/dL Low 6.3-8.2 [facility] Comment on above: Performed By: #### H EMOG, LFT3, BMP3 ####[address] Bilirubin.indirect [Mass/Vol] 0.5 mg/dL High 0.0-0.3 [facility] Comment on above: Performed By: #### H EMOG, LFT3, BMP3 ####[address] Albumin [Mass/Vol] 3.1 g/dL Low 3.5-5.0 [facility] Comment on above: Performed By: #### H EMOG, LFT3, BMP3 ####[address] Hepatic Function Panelon Albumin [Mass/Vol] 3.1 g/dL Low 3.5 - 5 g/dL [place] ALP [Catalytic activity/Vol] 145 U/L High 38 - 126 U/L [place] ALT [Catalytic activity/Vol] 86 U/L High 0 - 49 U/L [place] Comment on above: The ALT test is perf ormed by an updated assay method. Please note that the reference intervals have been changed and are now sex specific. AST [Catalytic activity/Vol] 57 U/L High 15 - 46 U/L [place] Bilirubin Ql (U) 4.6 mg/dL High 0.2 - 1.3 mg/dL [place] Bilirubin.direct [Mass/Vol] 0.5 mg/dL High 0 - 0.3 mg/dL [place] Protein [Mass/Vol] 6.2 g/dL Low 6.3 - 8.2 g/dL [place] Otheron 04-08-2020 Interpretation and review of laboratory results Abnormal [place] Test Performed by [address] [address] [place] VL Venous Duplex US Lower Ex t Bilateralon 04-08-2020 VL Venous Duplex US Lower Ext Bilateral Normal [facility] XR CHEST PORTABLEon 04-08-20 20 Patient Name: KAREN KEARNS ---Diagnostic Radiology--- Exam Date/Time 04/08/2020 05:59:49 EDT Exam CR Chest Portable Ordering Physician YANIQUE LACEY MATTHEW R. Accession Number [id number] CPT4 Codes 00712 () Reason For Exam aspiration Report CHEST - PORTABLE: CLINICAL INDICATION: Respiratory distress for follow up TECHNIQUE: Portable AP COMPARISON: One day ago FINDINGS: Heart/Mediastinum: Heart is enlarged. There is elongated calcified focus overlying the heart and the region of the mediastinal reflection Lungs/Pleura: Homogeneous increased density in the lower hemithoraces resulting blunting of the costophrenic angles, corresponding to pleural effusions. There is no other upper lobe consolidation. Other: Old left rib fractures are noted IMPRESSION: Pleural effusions unchanged. Calcified pleural plaque Report Dictated on Workstation: [email or web address] --- Final --- Dictated: 04/08/2020 6:18 am Dictating Physician: MD HERNANDEZ JEFFREY Signed Date and Time: 04/08/2020 6:20 am Signed by: MD HERNANDEZ JEFFREY Transcribed Date and Time: 04/08/2020 6:18 [place], [place] Prabhu, [facility] Incoming Radiology [facility] - 04/08/2020 6:21 AM EDT Patient Name: KAREN KEARNS ---Diagnostic Radiology--- Exam Date/Time 04/08/2020 05:59:49 EDT Exam CR Chest Portable Ordering Physician YANIQUE LACEY MATTHEW R. Accession Number [id number] CPT4 Codes 86329 () Reason For Exam aspiration Report CHEST - PORTABLE: CLINICAL INDICATION: Respiratory distress for follow up TECHNIQUE: Portable AP COMPARISON: One day ago FINDINGS: Heart/Mediastinum: Heart is enlarged. There is elongated calcified focus overlying the heart and the region of the mediastinal reflection Lungs/Pleura: Homogeneous increased density in the lower hemithoraces resulting blunting of the costophrenic angles, corresponding to pleural effusions. There is no other upper lobe consolidation. Other: Old left rib fractures are noted IMPRESSION: Pleural effusions unchanged. Calcified pleural plaque Report Dictated on Workstation: [id number] --- Final --- Dictated: 04/08/2020 6:18 am Dictating Physician: MD HERNANDEZ JEFFREY Signed Date and Time: 04/08/2020 6:20 am Signed by: MD HERNANDEZ JEFFREY Transcribed Date and Time: 04/08/2020 6:18 [place], [place] Add On Lab Teston 04-07-2020 Sodium [Moles/Vol] Accepted [place], [place] Comment on above: Specimen available & acceptable for analysis. CORRECTED RESULT...Previous above value was Rejected, verified on 04/07/20 at 01:22 by MHB . Test Performed by [facility], [address] [place] [address] [place], [place] Add on test from HISon 04-07 Add on test from HIS Accepted Normal [facility] Comment on above: Result Comment: Spec imen available & acceptable for analysis.CORRECTED RESULT...Previous above value was Rejected, verified on 04/07/20 at01:22 by MHB . Performed By: #### A DDON ####[facility] [place] [address] Basic Metabolic Panelon 03-16 Calcium [Mass/Vol] 8.2 mg/dL Low 8.4-10.4 [facility] Comment on above: Performed By: #### H EMOG, ICA, BMP3, LFT3 ####[address] [place], [place] Anion Gap 9 Normal [facility] Comment on above: Performed By: #### H EMOG, ICA, BMP3, LFT3 ####[address] CO2 [Moles/Vol] 30 mmol/L Normal 22-30 [facility] Comment on above: Performed By: #### H EMOG, ICA, BMP3, LFT3 ####[address] Creatinine [Mass/Vol] 1.65 mg/dL High 0.52-1.25 [facility] Comment on above: Performed By: #### H EMOG, ICA, BMP3, LFT3 ####[address] GFR/1.73 sq M.predicted among blacks MDRD (S/P/Bld) [Vol rate/Area] 44.5 mL/min/{1.73_m2} Abnormal >60 [facility] Comment on above: Performed By: #### H EMOG, ICA, BMP3, LFT3 ####[address] GFR/1.73 sq M.predicted among non-blacks MDRD (S/P/Bld) [Vol rate/Area] 38.4 mL/min/{1.73_m2} Abnormal >60 [facility] Comment on above: Result Comment: KDIG O guidelines provide the following GFR categories:Stage GFR(ml/min/1.73 m2) TermsG1 >=90 Normal or highG2 60-89 Mildly decreased*G3a 45-59 Mildly to moderately [id number] 30-44 Moderately to severely decreasedG4 15-29 Severely decreasedG5 <15 Kidney failure*Relative to young adult level.In the absence of evidence of kidney damage, neither GFRcategory G1 nor G2 fulfill the criteria for CKD.The CKD-EPI equation is validated in individuals 18 yearsof age and older. Currently the best equation forestimating glomerular filtration rate (GFR) from serumcreatinine in children is the Bedside Pelletier equation.It is less accurate in patients with extremes of musclemass, restriction of dietary protein, ingestion of creatine,extra-renal metabolism of creatinine, or treatment withmedications that affect renal tubular creatinine secretion. Performed By: #### H LATASHAG, ICA, BMP3, LFT3 ####[address] [place], [place] Glucose [Mass/Vol] 134 mg/dL High 70-100 [facility] Comment on above: Performed By: #### H VIDAL, ICA, BMP3, LFT3 ####[address] [place], [place] Urea nitrogen [Mass/Vol] 52 mg/dL High 7-20 [facility] Comment on above: Performed By: #### H VIDAL, ICA, BMP3, LFT3 ####[address] Potassium [Moles/Vol] 4.0 mmol/L Normal 3.5-5.1 [facility] Comment on above: Performed By: #### H VIDAL, ICA, BMP3, LFT3 ####[address] Sodium [Moles/Vol] 139 mmol/L Normal 135-145 [facility] Comment on above: Performed By: #### H EMOG, ICA, BMP3, LFT3 ####[address] Chloride [Moles/Vol] 99 mmol/L Normal 98-107 [place] Comment on above: Performed By: #### H EMOG, ICA, BMP3, LFT3 ####[address] Anion gap [Moles/Vol] 9 mmol/L [place] Calcium [Mass/Vol] 8.2 mg/dL Low 8.4 - 10. 4 mg/dL [place] CO2 [Moles/Vol] 30 mmol/L 22 - 30 mmol/L [place] Creatinine [Mass/Vol] 1.65 mg/dL High 0.52 - 1.25 mg/dL [place] EGFR IF NonAfrican [place] 38.4 mL/min Abnormal >60 [place] Comment on above: KDIGO guidelines pro vide the following GFR categories: Stage GFR(ml/min/1.73 m2) Terms G1 >=90 Normal or high G2 60-89 Mildly decreased* G3a 45-59 Mildly to moderately decreased G3b 30-44 Moderately to severely decreased G4 15-29 Severely decreased G5 <15 Kidney failure *Relative to young adult level. In the absence of evidence of kidney damage, neither GFR category G1 nor G2 fulfill the criteria for CKD. The CKD-EPI equation is validated in individuals 18 years of age and older. Currently the best equation for estimating glomerular filtration rate (GFR) from serum creatinine in children is the Bedside Pelletier equation. It is less accurate in patients with extremes of muscle mass, restriction of dietary protein, ingestion of creatine, extra-renal metabolism of creatinine, or treatment with medications that affect renal tubular creatinine secretion. GFR/1.73 sq M predicted among blacks MDRD (S/P/Bld) [Vol rate/Area] 44.5 mL/min/{1.73_m2} Abnormal >60 [place] Glucose [Mass/Vol] 134 mg/dL High 70 - 100 mg/dL [place] Potassium [Moles/Vol] 4.0 mmol/L 3.5 - 5.1 mmol/L [place] Sodium [Moles/Vol] 139 mmol/L 135 - 145 mmol/L [place] Urea nitrogen [Mass/Vol] 52 mg/dL High 7 - 20 mg/dL [place] CBCon 04-07-2020 Erythrocyte distribution width (RBC) [Ratio] 17.9 % High 11.5 - 14.5 % [place] Hematocrit (Bld) [Volume fraction] 24.8 % Low 40 - 52 % [place] Hemoglobin (Bld) [Mass/Vol] 8.1 g/dL Low 13 - 18 g/dL [place] Interpretation and review of laboratory results Abnormal [place] MCH (RBC) [Entitic mass] 30.6 pg 26 - 34 pg [place] MCHC (RBC) [Mass/Vol] 32.7 % 32 - 36 % [place] MCV (RBC) [Entitic vol] 93.3 fL 80 - 98 fL [place] Platelet mean volume (Bld) [Entitic vol] 8.7 fL 7.4 - 10.4 fL [place] Platelets (Bld) [#/Vol] 331 10*3/uL 140 - 440 10*3/uL [place] RBC (Bld) [#/Vol] 2.66 10*6/uL Low 4.4 - 5.9 10*6/uL [place] WBC (Bld) [#/Vol] 17.7 10*3/uL High 3.6 - 10.7 10*3/uL [place] Test Performed by [facility], [address] [place] [address] [place] CR Chest Portableon 04-07-20 20 CR Chest Portable Normal [facility] Calcium, Ionizedon 0 Interpretation and review of laboratory results Abnormal [place] Ionized Ca 4.00 mg/dL Low 4.3 - 5.2 mg/dL [place] pH (Bld) 7.52 [pH] High [place] Test Performed by [facility], [address] [place] [address] [place] Calcium,Ionizedon 04-07-2020 Ionized Ca,Measured 4.00 mg/dL Low 4.30-5.20 [facility] Comment on above: Performed By: #### H EMOG, ICA, BMP3, LFT3 ####[id number] [place] [address] pH, Ionized Calcium 7.52 High 7.31-7.46 [facility] Comment on above: Performed By: #### H EMOG, ICA, BMP3, LFT3 ####[facility] [id number] [place], [place] Complete Urinalysison 2019 Appearance (U) Clear Normal Clear [facility] Comment on above: Result Comment: . Performed By: #### C UA2 ####[address] Bilirubin,Urine Negative Normal Negative [facility] Comment on above: Result Comment: . Performed By: #### C UA2 ####[facility] [place] [address] Color (U) Yellow Normal Lt. Yellow [facility] Comment on above: Result Comment: . Performed By: #### C UA2 ####[facility] [place] [address] Glucose Ql (U) Normal Normal Normal (<70) [facility] Comment on above: Result Comment: . Performed By: #### C UA2 ####[facility] [place] [address] Ketone,Urine Negative Normal Negative [facility] Comment on above: Result Comment: . Performed By: #### C UA2 ####[facility] [place] [address] Leukocytes,Urine Negative Normal Negative [facility] Comment on above: Result Comment: . Performed By: #### C UA2 ####[facility] [place] [address] Nitrites,Urine Negative Normal Negative [facility] Comment on above: Result Comment: . Performed By: #### C UA2 ####[facility] [place] [address] Occult Blood,Urine Negative Normal Negative [facility] Comment on above: Result Comment: . Performed By: #### C UA2 ####[facility] [place] [address] pH,Urine 5.0 Normal 5.0-8.0 [facility] Comment on above: Result Comment: . Performed By: #### C UA2 ####[facility] [place] [address] Specific [place],Urine 1.012 Normal 1.005 - 1.030 [facility] Comment on above: Result Comment: . Performed By: #### C UA2 ####[address] Total Protein,Urine Negative Normal Negative [facility] Comment on above: Result Comment: . Performed By: #### C UA2 ####[address] Urobilinogen,Urine 12 mg/dL Abnormal Normal (0-1) [facility] Comment on above: Result Comment: . Performed By: #### C UA2 ####[address] [place], [place] Hemogramon 04-07-2020 Erythrocyte distribution width (RBC) [Ratio] 17.9 % High 11.5-14.5 [facility] Comment on above: Performed By: #### H EMOG, ICA, BMP3, LFT3 ####[address] Hematocrit (Bld) [Volume fraction] 24.8 % Low 40.0-52.0 [facility] Comment on above: Performed By: #### H EMOG, ICA, BMP3, LFT3 ####[address] [place], [place] Hemoglobin (Bld) [Mass/Vol] 8.1 g/dL Low 13.0-18.0 [facility] Comment on above: Performed By: #### H EMOG, ICA, BMP3, LFT3 ####[address] [place], [place] MCH (RBC) [Entitic mass] 30.6 pg Normal 26.0-34.0 [facility] Comment on above: Performed By: #### H EMOG, ICA, BMP3, LFT3 ####[address] MCHC 32.7 % Normal 32.0-36.0 [facility] Comment on above: Performed By: #### H EMOG, ICA, BMP3, LFT3 ####[address] [place], [place] MCV (RBC) [Entitic vol] 93.3 fL Normal 80.0-98.0 [facility] Comment on above: Performed By: #### H EMOG, ICA, BMP3, LFT3 ####[address] [place], [place] Platelet mean volume (Bld) [Entitic vol] 8.7 fL Normal 7.4-10.4 [facility] Comment on above: Performed By: #### H EMOG, ICA, BMP3, LFT3 ####[address] Platelets (Bld) [#/Vol] 331 10*3/uL Normal 140-440 [facility] Comment on above: Performed By: #### H EMOG, ICA, BMP3, LFT3 ####[address] RBC (Bld) [#/Vol] 2.66 10*6/uL Low 4.40-5.90 [facility] Comment on above: Performed By: #### H EMOG, ICA, BMP3, LFT3 ####[address] [place], [place] WBC (Bld) [#/Vol] 17.7 10*3/uL High 3.6-10.7 [facility] Comment on above: Performed By: #### H EMOG, ICA, BMP3, LFT3 ####[address] Hepatic Functionon 04-07-202 0 ALT [Catalytic activity/Vol] 84 U/L High 0-49 [facility] Comment on above: Result Comment: The ALT test is performed by an updated assay method.Please note that the reference intervals have beenchanged and are now sex specific. Performed By: #### H EMOG, ICA, BMP3, LFT3 ####[address] ALP [Catalytic activity/Vol] 164 U/L High 38-126 [facility] Comment on above: Performed By: #### H EMOG, ICA, BMP3, LFT3 ####[address] [place], [place] AST [Catalytic activity/Vol] 51 U/L High 15-46 [facility] Comment on above: Performed By: #### H EMOG, ICA, BMP3, LFT3 ####[address] [place], [place] Bilirubin [Mass/Vol] 5.5 mg/dL High 0.2-1.3 [facility] Comment on above: Performed By: #### H EMOG, ICA, BMP3, LFT3 ####[address] Bilirubin.indirect [Mass/Vol] 1.1 mg/dL High 0.0-0.3 [facility] Comment on above: Performed By: #### H EMOG, ICA, BMP3, LFT3 ####[address] [place] Protein [Mass/Vol] 6.4 g/dL Normal 6.3-8.2 [facility] Comment on above: Performed By: #### H EMOG, ICA, BMP3, LFT3 ####[address] [place], [place] Albumin [Mass/Vol] 3.2 g/dL Low 3.5-5.0 [place] Comment on above: Performed By: #### H EMOG, ICA, BMP3, LFT3 ####[address] [place], [place] Hepatic Function Panelon ALP [Catalytic activity/Vol] 164 U/L High 38 - 126 U/L [place] ALT [Catalytic activity/Vol] 84 U/L High 0 - 49 U/L [place] Comment on above: The ALT test is perf ormed by an updated assay method. Please note that the reference intervals have been changed and are now sex specific. AST [Catalytic activity/Vol] 51 U/L High 15 - 46 U/L [place] Bilirubin Ql (U) 5.5 mg/dL High 0.2 - 1.3 mg/dL [place] Bilirubin.direct [Mass/Vol] 1.1 mg/dL High 0 - 0.3 mg/dL [place] Protein [Mass/Vol] 6.4 g/dL 6.3 - 8.2 g/dL [place] Otheron 04-07-2020 Interpretation and review of laboratory results Abnormal [place] Test Performed by [facility], [address] [place] [address] [place] Urinalysison 04-07-2020 Appearance (U) Clear Clear NA [place] Comment on above: . Bilirubin Urine Negative Negative mg/dL [place] Comment on above: . Color (U) Yellow Lt. Yellow NA [place] Comment on above: . Glucose, Ur Normal Normal (<70) mg/dL [place] Comment on above: . Interpretation and review of laboratory results Abnormal [place] Ketones Ql (U) Negative Negative mg/dL [place] Comment on above: . LEUKOCYTES, UA Negative Negative Dangelo/uL [place] Comment on above: . Nitrite, Urine Negative Negative NA [place] Comment on above: . Occult Blood,Urine Negative Negative mg/dL [place] Comment on above: . pH (U) 5.0 [pH] [place] Comment on above: . Protein (U) [Mass/Vol] Negative Negative mg/dL [place] Comment on above: . Specific [place], Urine 1.012 [place] Comment on above: . Urobilinogen, Urine 12 mg/dL Abnormal Normal (0-1) [place] Comment on above: . Test Performed by [facility], [facility] [place] [address] [place] XR CHEST PORTABLEon 04-07-20 20 Prabhu, [facility] Incoming Radiology [facility] - 04/07/2020 7:46 AM EDT Patient Name: KAREN KEARNS ---Diagnostic Radiology--- Exam Date/Time 04/07/2020 06:15:28 EDT Exam CR Chest Portable Ordering Physician YANIQUE LACEY MATTHEW R. Accession Number [id number] CPT4 Codes 31428 () Reason For Exam aspiration Report CHEST X-RAY AP CLINICAL INDICATION: Shortness of breath AP radiograph of the chest was obtained. COMPARISON: 04/06/2020 FINDINGS: The patient is status post open heart surgery with sternotomy wires present. Persistent bilateral pleural effusions with associated atelectasis/consolidati on in the lung bases. Otherwise no new focal consolidation or opacification is seen within the lungs. Degenerative changes of the thoracic spine are noted. IMPRESSION: Persistent bilateral pleural effusions with associated atelectasis/consolidati on in the lung bases. Report Dictated on --- Final --- Dictated: 04/07/2020 7:44 am Dictating Physician: MD VELEZ JASON Signed Date and Time: 04/07/2020 7:44 am Signed by: MD VELEZ JASON Transcribed Date and Time: 04/07/2020 7:44 [place], [place] Patient Name: KAREN KEARNS ---Diagnostic Radiology--- Exam Date/Time 04/07/2020 06:15:28 EDT Exam CR Chest Portable Ordering Physician YANIQUE LACEY MATTHEW R. Accession Number [id number] CPT4 Codes 99420 () Reason For Exam aspiration Report CHEST X-RAY AP CLINICAL INDICATION: Shortness of breath AP radiograph of the chest was obtained. COMPARISON: 04/06/2020 FINDINGS: The patient is status post open heart surgery with sternotomy wires present. Persistent bilateral pleural effusions with associated atelectasis/consolidati on in the lung bases. Otherwise no new focal consolidation or opacification is seen within the lungs. Degenerative changes of the thoracic spine are noted. IMPRESSION: Persistent bilateral pleural effusions with associated atelectasis/consolidati on in the lung bases. Report Dictated on --- Final --- Dictated: 04/07/2020 7:44 am Dictating Physician: MD VELEZ JASON Signed Date and Time: 04/07/2020 7:44 am Signed by: MD VELEZ JASON Transcribed Date and Time: 04/07/2020 7:44 [facility], [place] Basic Metabolic Panelon 10-2 Calcium [Mass/Vol] 7.6 mg/dL Low 8.4-10.4 [facility] Comment on above: Performed By: #### L FT3, BMP3, HEMOG ####[address] [place], [place] Glucose [Mass/Vol] 128 mg/dL High 70-100 [facility] Comment on above: Performed By: #### L FT3, BMP3, HEMOG ####[address] [place], [place] Urea nitrogen [Mass/Vol] 56 mg/dL High 7-20 [facility] Comment on above: Performed By: #### L FT3, BMP3, HEMOG ####[address] [place], [place] Anion Gap 6 Normal [facility] Comment on above: Performed By: #### L FT3, BMP3, HEMOG ####[address] [place], [place] CO2 [Moles/Vol] 32 mmol/L High 22-30 [facility] Comment on above: Performed By: #### L FT3, BMP3, HEMOG ####[address] [place], [place] Creatinine [Mass/Vol] 1.66 mg/dL High 0.52-1.25 [facility] Comment on above: Performed By: #### L FT3, BMP3, HEMOG ####[address] [place], [place] GFR/1.73 sq M.predicted among blacks MDRD (S/P/Bld) [Vol rate/Area] 44.2 mL/min/{1.73_m2} Abnormal >60 [facility] Comment on above: Performed By: #### L FT3, BMP3, HEMOG ####[address] [place], [place] GFR/1.73 sq M.predicted among non-blacks MDRD (S/P/Bld) [Vol rate/Area] 38.1 mL/min/{1.73_m2} Abnormal >60 [facility] Comment on above: Result Comment: KDIG O guidelines provide the following GFR categories:Stage GFR(ml/min/1.73 m2) TermsG1 >=90 Normal or highG2 60-89 Mildly decreased*G3a 45-59 Mildly to moderately [id number] 30-44 Moderately to severely decreasedG4 15-29 Severely decreasedG5 <15 Kidney failure*Relative to young adult level.In the absence of evidence of kidney damage, neither GFRcategory G1 nor G2 fulfill the criteria for CKD.The CKD-EPI equation is validated in individuals 18 yearsof age and older. Currently the best equation forestimating glomerular filtration rate (GFR) from serumcreatinine in children is the Bedside Pelletier equation.It is less accurate in patients with extremes of musclemass, restriction of dietary protein, ingestion of creatine,extra-renal metabolism of creatinine, or treatment withmedications that affect renal tubular creatinine secretion. Performed By: #### L FT3 BMP3, HEMOG ####[facility] [address] [place], [place] Chloride [Moles/Vol] 100 mmol/L Normal 98-107 [facility] Comment on above: Performed By: #### L FT3 BMP3, HEMOG ####[address] [place], [place] Potassium [Moles/Vol] 3.6 mmol/L Normal 3.5-5.1 [facility] Comment on above: Performed By: #### L FT3 BMP3, HEMOG ####[address] [place], [place] Sodium [Moles/Vol] 137 mmol/L Normal 135-145 [facility] Comment on above: Performed By: #### L FT3, BMP3, HEMOG ####[address] [place], [place] Anion gap [Moles/Vol] 6 mmol/L [place], [place] Calcium [Mass/Vol] 7.6 mg/dL Low 8.4 - 10. 4 mg/dL [place], [place] Chloride [Moles/Vol] 100 mmol/L 98 - 10 7 mmol/L [place] CO2 [Moles/Vol] 32 mmol/L High 22 - 30 mmol/L [place] Creatinine [Mass/Vol] 1.66 mg/dL High 0.52 - 1.25 mg/dL [place] EGFR IF NonAfrican [place]ian 38.1 mL/min Abnormal >60 [place] Comment on above: KDIGO guidelines pro vide the following GFR categories: Stage GFR(ml/min/1.73 m2) Terms G1 >=90 Normal or high G2 60-89 Mildly decreased* G3a 45-59 Mildly to moderately decreased G3b 30-44 Moderately to severely decreased G4 15-29 Severely decreased G5 <15 Kidney failure *Relative to young adult level. In the absence of evidence of kidney damage, neither GFR category G1 nor G2 fulfill the criteria for CKD. The CKD-EPI equation is validated in individuals 18 years of age and older. Currently the best equation for estimating glomerular filtration rate (GFR) from serum creatinine in children is the Bedside Pelletier equation. It is less accurate in patients with extremes of muscle mass, restriction of dietary protein, ingestion of creatine, extra-renal metabolism of creatinine, or treatment with medications that affect renal tubular creatinine secretion. GFR/1.73 sq M predicted among blacks MDRD (S/P/Bld) [Vol rate/Area] 44.2 mL/min/{1.73_m2} Abnormal >60 [place], [place] Glucose [Mass/Vol] 128 mg/dL High 70 - 100 mg/dL [place] Potassium [Moles/Vol] 3.6 mmol/L 3.5 - 5.1 mmol/L [place] Sodium [Moles/Vol] 137 mmol/L 135 - 145 mmol/L [place] Urea nitrogen [Mass/Vol] 56 mg/dL High 7 - 20 mg/dL [place] CALCIUM, IONIZEDon 0 Interpretation and review of laboratory results Abnormal [place], [place] Ionized Ca 3.90 mg/dL Low 4.3 - 5.2 mg/dL [place] pH (Bld) 7.48 [pH] High [place] Test Performed by [facility], [address] [place] [address] [place], [place] CBCon 04-06-2020 Erythrocyte distribution width (RBC) [Ratio] 17.3 % High 11.5 - 14.5 % [place] Hematocrit (Bld) [Volume fraction] 24.2 % Low 40 - 52 % [place] Hemoglobin (Bld) [Mass/Vol] 8.0 g/dL Low 13 - 18 g/dL [place] Interpretation and review of laboratory results Abnormal [place] MCH (RBC) [Entitic mass] 30.6 pg 26 - 34 pg [place] MCHC (RBC) [Mass/Vol] 33.0 % 32 - 36 % [place] MCV (RBC) [Entitic vol] 92.6 fL 80 - 98 fL [place] Platelet mean volume (Bld) [Entitic vol] 9.0 fL 7.4 - 10.4 fL [place] Platelets (Bld) [#/Vol] 293 10*3/uL 140 - 440 10*3/uL [place] RBC (Bld) [#/Vol] 2.61 10*6/uL Low 4.4 - 5.9 10*6/uL [place] WBC (Bld) [#/Vol] 15.2 10*3/uL High 3.6 - 10.7 10*3/uL [place] Test Performed by [facility], [address] [place] [address] [place], [place] CR Chest Portableon 04-06-20 20 CR Chest Portable Normal [facility] Calcium,Ionizedon 04-06-2020 Ionized Ca,Measured 3.90 mg/dL Low 4.30-5.20 [facility] Comment on above: Performed By: #### I CA ####[facility] [address] [place], [place] pH, Ionized Calcium 7.48 High 7.31-7.46 [facility] Comment on above: Performed By: #### I CA ####[address] [place], [place] Hemogramon 04-06-2020 Erythrocyte distribution width (RBC) [Ratio] 17.3 % High 11.5-14.5 [facility] Comment on above: Performed By: #### L FT3 BMP3, HEMOG ####[address] Hematocrit (Bld) [Volume fraction] 24.2 % Low 40.0-52.0 [facility] Comment on above: Performed By: #### L FT3 BMP3, HEMOG ####[address] Hemoglobin (Bld) [Mass/Vol] 8.0 g/dL Low 13.0-18.0 [facility] Comment on above: Performed By: #### L FT3 BMP3, HEMOG ####[address] [place], [place] MCH (RBC) [Entitic mass] 30.6 pg Normal 26.0-34.0 [facility] Comment on above: Performed By: #### L FT3, BMP3, HEMOG ####[address] MCHC 33.0 % Normal 32.0-36.0 [facility] Comment on above: Performed By: #### L FT3, BMP3, HEMOG ####[address] MCV (RBC) [Entitic vol] 92.6 fL Normal 80.0-98.0 [facility] Comment on above: Performed By: #### L FT3, BMP3, HEMOG ####[address] Platelet mean volume (Bld) [Entitic vol] 9.0 fL Normal 7.4-10.4 [facility] Comment on above: Performed By: #### L FT3, BMP3, HEMOG ####[address] [place], [place] Platelets (Bld) [#/Vol] 293 10*3/uL Normal 140-440 [facility] Comment on above: Performed By: #### L FT3, BMP3, HEMOG ####[address] [place], [place] RBC (Bld) [#/Vol] 2.61 10*6/uL Low 4.40-5.90 [facility] Comment on above: Performed By: #### L FT3, BMP3, HEMOG ####[address] [place], [place] WBC (Bld) [#/Vol] 15.2 10*3/uL High 3.6-10.7 [facility] Comment on above: Performed By: #### L FT3, BMP3, HEMOG ####[address] [place], [place] Hepatic Functionon 04-06-202 0 ALP [Catalytic activity/Vol] 154 U/L High 38-126 [facility] Comment on above: Performed By: #### L FT3, BMP3, HEMOG ####[address] [place], [place] ALT [Catalytic activity/Vol] 81 U/L High 0-49 [facility] Comment on above: Result Comment: The ALT test is performed by an updated assay method.Please note that the reference intervals have beenchanged and are now sex specific. Performed By: #### L FT3, BMP3, HEMOG ####[address] [place], [place] AST [Catalytic activity/Vol] 55 U/L High 15-46 [facility] Comment on above: Performed By: #### L FT3, BMP3, HEMOG ####[address] [place], [place] Protein [Mass/Vol] 6.1 g/dL Low 6.3-8.2 [facility] Comment on above: Performed By: #### L FT3, BMP3, HEMOG ####[facility] [place], [place] Bilirubin [Mass/Vol] 5.4 mg/dL High 0.2-1.3 [facility] Comment on above: Performed By: #### L FT3, BMP3, HEMOG ####[address] [place], [place] Bilirubin.indirect [Mass/Vol] 1.2 mg/dL High 0.0-0.3 [facility] Comment on above: Performed By: #### L FT3, BMP3, HEMOG ####[address] [place], [place] Albumin [Mass/Vol] 3.0 g/dL Low 3.5-5.0 [facility] Comment on above: Performed By: #### L FT3, BMP3, HEMOG ####[address] [place], [place] Hepatic Function Panelon Albumin [Mass/Vol] 3.0 g/dL Low 3.5 - 5 g/dL [place], [place] ALP [Catalytic activity/Vol] 154 U/L High 38 - 126 U/L [place] ALT [Catalytic activity/Vol] 81 U/L High 0 - 49 U/L [place] Comment on above: The ALT test is perf ormed by an updated assay method. Please note that the reference intervals have been changed and are now sex specific. AST [Catalytic activity/Vol] 55 U/L High 15 - 46 U/L [place] Bilirubin Ql (U) 5.4 mg/dL High 0.2 - 1.3 mg/dL [place] Bilirubin.direct [Mass/Vol] 1.2 mg/dL High 0 - 0.3 mg/dL [place] Protein [Mass/Vol] 6.1 g/dL Low 6.3 - 8.2 g/dL [place] Otheron 04-06-2020 Interpretation and review of laboratory results Abnormal [place] Test Performed by [facility], [address] [place] [address] [place] XR CHEST PORTABLEon 04-06-20 Patient Name: KAREN KEARNS ---Diagnostic Radiology--- Exam Date/Time 04/06/2020 06:37:33 EDT Exam CR Chest Portable Ordering Physician YANIQUE LACEY MATTHEW R. 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 There is hazy increased density in the lower hemithoraces, corresponding to pleural fluid. Mild vascular congestion is noted. Old left rib fractures are noted. IMPRESSION: Pleural effusions. Cardiomegaly. Probable vascular congestion. There may be calcified pleural plaque along the mediastinal reflection on the left. Report Dictated on Workstation: [id number] --- Final --- Dictated: 04/06/2020 5:55 am Dictating Physician: MD HERNANDEZ JEFFREY Signed Date and Time: 04/06/2020 5:57 am Signed by: MD HERNANDEZ JEFFREY Transcribed Date and Time: 04/06/2020 5:55 [place], [place] Pr[facility], [facility] Incoming Rad[facility] - 04/06/2020 6:37 AM EDT Patient Name: KAREN KEARNS ---Diagnostic Radiology--- Exam Date/Time 04/06/2020 06:37:33 EDT Exam CR Chest Portable Ordering Physician YANIQUE LACEY MATTHEW R. 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 There is hazy increased density in the lower hemithoraces, corresponding to pleural fluid. Mild vascular congestion is noted. Old left rib fractures are noted. IMPRESSION: Pleural effusions. Cardiomegaly. Probable vascular congestion. There may be calcified pleural plaque along the mediastinal reflection on the left. Report Dictated on Workstation: [facility] --- Final --- Dictated: 04/06/2020 5:55 am Dictating Physician: MD HERNANDEZ JEFFREY Signed Date and Time: 04/06/2020 5:57 am Signed by: MD HERNANDEZ JEFFREY Transcribed Date and Time: 04/06/2020 5:55 [facility], [place] Basic Metabolic Panelon 10-2 Anion Gap 8 Normal [facility] Comment on above: Performed By: #### L FT3, BMP3, HEMOG ####[address] [place] [address] Calcium [Mass/Vol] 7.8 mg/dL Low 8.4-10.4 [facility] Comment on above: Performed By: #### L FT3, BMP3, HEMOG ####[address] [place] [address] CO2 [Moles/Vol] 31 mmol/L High 22-30 [facility] Comment on above: Performed By: #### L FT3, BMP3, HEMOG ####[address] [place] [address] Creatinine [Mass/Vol] 1.55 mg/dL High 0.52-1.25 [facility] Comment on above: Performed By: #### L FT3, BMP3, HEMOG ####[address] [place] [address] GFR/1.73 sq M.predicted among blacks MDRD (S/P/Bld) [Vol rate/Area] 48.0 mL/min/{1.73_m2} Abnormal >60 [facility] Comment on above: Performed By: #### L FT3, BMP3, HEMOG ####[address] [place] [address] GFR/1.73 sq M.predicted among non-blacks MDRD (S/P/Bld) [Vol rate/Area] 41.4 mL/min/{1.73_m2} Abnormal >60 [facility] Comment on above: Result Comment: KDIG O guidelines provide the following GFR categories:Stage GFR(ml/min/1.73 m2) TermsG1 >=90 Normal or highG2 60-89 Mildly decreased*G3a 45-59 Mildly to moderately [id number] 30-44 Moderately to severely decreasedG4 15-29 Severely decreasedG5 <15 Kidney failure*Relative to young adult level.In the absence of evidence of kidney damage, neither GFRcategory G1 nor G2 fulfill the criteria for CKD.The CKD-EPI equation is validated in individuals 18 yearsof age and older. Currently the best equation forestimating glomerular filtration rate (GFR) from serumcreatinine in children is the Bedside Pelletier equation.It is less accurate in patients with extremes of musclemass, restriction of dietary protein, ingestion of creatine,extra-renal metabolism of creatinine, or treatment withmedications that affect renal tubular creatinine secretion. Performed By: #### L FT3 BMP3, HEMOG ####[facility] [id number] [place] [address] Glucose [Mass/Vol] 112 mg/dL High 70-100 [facility] Comment on above: Performed By: #### L FT3 BMP3, HEMOG ####[address] [place] [address] Urea nitrogen [Mass/Vol] 51 mg/dL High 7-20 [facility] Comment on above: Performed By: #### L FT3, BMP3, HEMOG ####[address] [place] [address] Potassium [Moles/Vol] 3.7 mmol/L Normal 3.5-5.1 [facility] Comment on above: Performed By: #### L FT3, BMP3, HEMOG ####[address] [place] [address] Sodium [Moles/Vol] 138 mmol/L Normal 135-145 [facility] Comment on above: Performed By: #### L FT3, BMP3, HEMOG ####[facility] [place] [address] Chloride [Moles/Vol] 98 mmol/L Normal 98-107 [facility] Comment on above: Performed By: #### L FTMARY Pierce, HEMOG ####[facility] [place] [address] Anion gap [Moles/Vol] 8 mmol/L [place], [place] Calcium [Mass/Vol] 7.8 mg/dL Low 8.4 - 10. 4 mg/dL [place], [place] Chloride [Moles/Vol] 98 mmol/L 98 - 10 7 mmol/L [place] CO2 [Moles/Vol] 31 mmol/L High 22 - 30 mmol/L [place] Creatinine [Mass/Vol] 1.55 mg/dL High 0.52 - 1.25 mg/dL [place] EGFR IF NonAfrican [place]ian 41.4 mL/min Abnormal >60 [place] Comment on above: KDIGO guidelines pro vide the following GFR categories: Stage GFR(ml/min/1.73 m2) Terms G1 >=90 Normal or high G2 60-89 Mildly decreased* G3a 45-59 Mildly to moderately decreased G3b 30-44 Moderately to severely decreased G4 15-29 Severely decreased G5 <15 Kidney failure *Relative to young adult level. In the absence of evidence of kidney damage, neither GFR category G1 nor G2 fulfill the criteria for CKD. The CKD-EPI equation is validated in individuals 18 years of age and older. Currently the best equation for estimating glomerular filtration rate (GFR) from serum creatinine in children is the Bedside Pelletier equation. It is less accurate in patients with extremes of muscle mass, restriction of dietary protein, ingestion of creatine, extra-renal metabolism of creatinine, or treatment with medications that affect renal tubular creatinine secretion. GFR/1.73 sq M predicted among blacks MDRD (S/P/Bld) [Vol rate/Area] 48.0 mL/min/{1.73_m2} Abnormal >60 [place], [place] Glucose [Mass/Vol] 112 mg/dL High 70 - 100 mg/dL [place] Potassium [Moles/Vol] 3.7 mmol/L 3.5 - 5.1 mmol/L [place] Sodium [Moles/Vol] 138 mmol/L 135 - 145 mmol/L [place], [place] Urea nitrogen [Mass/Vol] 51 mg/dL High 7 - 20 mg/dL [place] CBCon 04-05-2020 Erythrocyte distribution width (RBC) [Ratio] 17.3 % High 11.5 - 14.5 % [place] Hematocrit (Bld) [Volume fraction] 26.4 % Low 40 - 52 % [place] Hemoglobin (Bld) [Mass/Vol] 8.8 g/dL Low 13 - 18 g/dL [place] Interpretation and review of laboratory results Abnormal [place] MCH (RBC) [Entitic mass] 30.8 pg 26 - 34 pg [place] MCHC (RBC) [Mass/Vol] 33.3 % 32 - 36 % [place] MCV (RBC) [Entitic vol] 92.4 fL 80 - 98 fL [place] Platelet mean volume (Bld) [Entitic vol] 9.2 fL 7.4 - 10.4 fL [place] Platelets (Bld) [#/Vol] 258 10*3/uL 140 - 440 10*3/uL [place] RBC (Bld) [#/Vol] 2.86 10*6/uL Low 4.4 - 5.9 10*6/uL [place] WBC (Bld) [#/Vol] 14.4 10*3/uL High 3.6 - 10.7 10*3/uL [place] Test Performed by [facility], [address] [place] [address] [place], [place] CR Chest Portableon 04-05-20 20 CR Chest Portable Normal [facility] Hemogramon 04-05-2020 Erythrocyte distribution width (RBC) [Ratio] 17.3 % High 11.5-14.5 [facility] Comment on above: Performed By: #### L FT3, BMP3, HEMOG ####[facility] [place], [place] Hematocrit (Bld) [Volume fraction] 26.4 % Low 40.0-52.0 [facility] Comment on above: Performed By: #### L FT3 BMP3, HEMOG ####[address] [place], [place] Hemoglobin (Bld) [Mass/Vol] 8.8 g/dL Low 13.0-18.0 [facility] Comment on above: Performed By: #### L FT3, BMP3, HEMOG ####[address] MCH (RBC) [Entitic mass] 30.8 pg Normal 26.0-34.0 [facility] Comment on above: Performed By: #### L FT3, BMP3, HEMOG ####[address] MCHC 33.3 % Normal 32.0-36.0 [facility] Comment on above: Performed By: #### L FT3, BMP3, HEMOG ####[address] MCV (RBC) [Entitic vol] 92.4 fL Normal 80.0-98.0 [facility] Comment on above: Performed By: #### L FT3, BMP3, HEMOG ####[address] Platelet mean volume (Bld) [Entitic vol] 9.2 fL Normal 7.4-10.4 [facility] Comment on above: Performed By: #### L FT3, BMP3, HEMOG ####[address] Platelets (Bld) [#/Vol] 258 10*3/uL Normal 140-440 [facility] Comment on above: Performed By: #### L FT3, BMP3, HEMOG ####[address] RBC (Bld) [#/Vol] 2.86 10*6/uL Low 4.40-5.90 [facility] Comment on above: Performed By: #### L FT3, BMP3, HEMOG ####[address] [place], [place] WBC (Bld) [#/Vol] 14.4 10*3/uL High 3.6-10.7 [facility] Comment on above: Performed By: #### L FT3, BMP3, HEMOG ####[address] [place], [place] Hepatic Functionon 202 0 ALP [Catalytic activity/Vol] 192 U/L High 38-126 [facility] Comment on above: Performed By: #### L FT3, BMP3, HEMOG ####[address] ALT [Catalytic activity/Vol] 91 U/L High 0-49 [facility] Comment on above: Result Comment: The ALT test is performed by an updated assay method.Please note that the reference intervals have beenchanged and are now sex specific. Performed By: #### L FT3, BMP3, HEMOG ####[address] [place], [place] AST [Catalytic activity/Vol] 65 U/L High 15-46 [facility] Comment on above: Performed By: #### L FT3, BMP3, HEMOG ####[address] [place], [place] Bilirubin [Mass/Vol] 6.1 mg/dL High 0.2-1.3 [facility] Comment on above: Performed By: #### L FT3, BMP3, HEMOG ####[address] [place], [place] Bilirubin.indirect [Mass/Vol] 1.8 mg/dL High 0.0-0.3 [facility] Comment on above: Performed By: #### L FT3, BMP3, HEMOG ####[address] [place], [place] Protein [Mass/Vol] 6.3 g/dL Normal 6.3-8.2 [facility] Comment on above: Performed By: #### L FT3, BMP3, HEMOG ####[facility] [place] [address] Albumin [Mass/Vol] 3.2 g/dL Low 3.5-5.0 [facility] Comment on above: Performed By: #### L FT3, BMP3, HEMOG ####[facility] [place] [address] Hepatic Function Panelon Albumin [Mass/Vol] 3.2 g/dL Low 3.5 - 5 g/dL [place], [place] ALP [Catalytic activity/Vol] 192 U/L High 38 - 126 U/L [place] ALT [Catalytic activity/Vol] 91 U/L High 0 - 49 U/L [place] Comment on above: The ALT test is perf ormed by an updated assay method. Please note that the reference intervals have been changed and are now sex specific. AST [Catalytic activity/Vol] 65 U/L High 15 - 46 U/L [place] Bilirubin Ql (U) 6.1 mg/dL High 0.2 - 1.3 mg/dL [place] Bilirubin.direct [Mass/Vol] 1.8 mg/dL High 0 - 0.3 mg/dL [place] Protein [Mass/Vol] 6.3 g/dL 6.3 - 8.2 g/dL [place] Otheron 04-05-2020 Interpretation and review of laboratory results Abnormal [place] Test Performed by [facility], [address] [place] [address] [place] XR CHEST PORTABLEon 04-05-20 Patient Name: KAREN KEARNS ---Diagnostic Radiology--- Exam Date/Time 04/05/2020 06:13:59 EDT Exam CR Chest Portable Ordering Physician YANIQUE LACEY MATTHEW R. Accession Number [id number] CPT4 Codes 01644 () Reason For Exam aspiration Report EXAM TYPE: RADIOLOGIC EXAMINATION, CHEST, SINGLE VIEW FRONTAL (CXR SINGLE VIEW) EXAM DATE AND TIME: 04/05/2020 6:13 AM EDT INDICATION: Respiratory distress COMPARISON: 04/04/2020 TECHNIQUE: A single frontal view of the thorax was obtained and reviewed. Special views: None. IMPRESSION: 1. Lines/Tubes/Devices/Heather dware: Monitoring leads. Sternotomy wires.. Please confirm position/function of devices/catheters clinically. 2. Lungs: Abnormal. Lower lobe volume which may reflect effusion and adjacent atelectasis or consolidation. A similar finding is seen previously. Left effusion probably mildly increased. Interstitial prominence. 3. Pleura: See above No significant pneumothorax. 4. Heart and mediastinum: Limited due to technique. Stable cardiac enlargement suspected. 5. Upper abdomen: No acute process seen. 6. Thorax:No acute bony process Report Dictated on --- Final --- Dictated: 04/05/2020 6:53 am Dictating Physician: MD CALLEJAS JOHN Signed Date and Time: 04/05/2020 6:55 am Signed by: MD CALLEJAS JOHN Transcribed Date and Time: 04/05/2020 6:53 [place], [place] [facility], [facility] Incoming Radiology Results From [facility] - 04/05/2020 6:56 AM EDT Patient Name: KAREN KEARNS ---Diagnostic Radiology--- Exam Date/Time 04/05/2020 06:13:59 EDT Exam CR Chest Portable Ordering Physician YANIQUE LACEY MATTHEW R. Accession Number [id number] CPT4 Codes 21669 () Reason For Exam aspiration Report EXAM TYPE: RADIOLOGIC EXAMINATION, CHEST, SINGLE VIEW FRONTAL (CXR SINGLE VIEW) EXAM DATE AND TIME: 04/05/2020 6:13 AM EDT INDICATION: Respiratory distress COMPARISON: 04/04/2020 TECHNIQUE: A single frontal view of the thorax was obtained and reviewed. Special views: None. IMPRESSION: 1. Lines/Tubes/Devices/Heather dware: Monitoring leads. Sternotomy wires.. Please confirm position/function of devices/catheters clinically. 2. Lungs: Abnormal. Lower lobe volume which may reflect effusion and adjacent atelectasis or consolidation. A similar finding is seen previously. Left effusion probably mildly increased. Interstitial prominence. 3. Pleura: See above No significant pneumothorax. 4. Heart and mediastinum: Limited due to technique. Stable cardiac enlargement suspected. 5. Upper abdomen: No acute process seen. 6. Thorax:No acute bony process Report Dictated on --- Final --- Dictated: 04/05/2020 6:53 am Dictating Physician: MD CALLEJAS JOHN Signed Date and Time: 04/05/2020 6:55 am Signed by: MD CALLEJAS JOHN Transcribed Date and Time: 04/05/2020 6:53 [facility], [place] Basic Metabolic Panelon 10-2 Calcium [Mass/Vol] 7.6 mg/dL Low 8.4-10.4 [facility] Comment on above: Performed By: #### P HOS3, MG3, PCAL, BMP3, LFT3, HEMOG ####[address] [place], [place] Glucose [Mass/Vol] 134 mg/dL High 70-100 [facility] Comment on above: Performed By: #### P HOS3, MG3, PCAL, BMP3, LFT3, HEMOG ####[address] [place], [place] Anion Gap 9 Normal [facility] Comment on above: Performed By: #### P HOS3, MG3, PCAL, BMP3, LFT3, HEMOG ####[address] [place], [place] CO2 [Moles/Vol] 28 mmol/L Normal 22-30 [facility] Comment on above: Performed By: #### P HOS3, MG3, PCAL, BMP3, LFT3, HEMOG ####[address] [place], [place] Creatinine [Mass/Vol] 1.60 mg/dL High 0.52-1.25 [facility] Comment on above: Performed By: #### P HOS3, MG3, PCAL, BMP3, LFT3, HEMOG ####[address] [place], [place] GFR/1.73 sq M.predicted among blacks MDRD (S/P/Bld) [Vol rate/Area] 46.2 mL/min/{1.73_m2} Abnormal >60 [facility] Comment on above: Performed By: #### P HOS3, MG3, PCAL, BMP3, LFT3, HEMOG ####[facility] [id number] [place], [place] GFR/1.73 sq M.predicted among non-blacks MDRD (S/P/Bld) [Vol rate/Area] 39.8 mL/min/{1.73_m2} Abnormal >60 [facility] Comment on above: Result Comment: KDIG O guidelines provide the following GFR categories:Stage GFR(ml/min/1.73 m2) TermsG1 >=90 Normal or highG2 60-89 Mildly decreased*G3a 45-59 Mildly to moderately [id number] 30-44 Moderately to severely decreasedG4 15-29 Severely decreasedG5 <15 Kidney failure*Relative to young adult level.In the absence of evidence of kidney damage, neither GFRcategory G1 nor G2 fulfill the criteria for CKD.The CKD-EPI equation is validated in individuals 18 yearsof age and older. Currently the best equation forestimating glomerular filtration rate (GFR) from serumcreatinine in children is the Bedside Pelletier equation.It is less accurate in patients with extremes of musclemass, restriction of dietary protein, ingestion of creatine,extra-renal metabolism of creatinine, or treatment withmedications that affect renal tubular creatinine secretion. Performed By: #### P HOS3, MG3, PCAL, BMP3, LFT3, HEMOG ####[facility] [address] [place], [place] Urea nitrogen [Mass/Vol] 51 mg/dL High 7-20 [facility] Comment on above: Performed By: #### P HOS3, MG3, PCAL, BMP3, LFT3, HEMOG ####[facility] [id number] [place], [place] Potassium [Moles/Vol] 3.8 mmol/L Normal 3.5-5.1 [facility] Comment on above: Performed By: #### P HOS3, MG3, PCAL, BMP3, LFT3, HEMOG ####[facility] [place] [address] Sodium [Moles/Vol] 136 mmol/L Normal 135-145 [facility] Comment on above: Performed By: #### P HOS3, MG3, PCAL, BMP3, LFT3, HEMOG ####[facility] [place] [address] Chloride [Moles/Vol] 99 mmol/L Normal 98-107 [facility] Comment on above: Performed By: #### P HOS3, MG3, PCAL, BMP3, LFT3, HEMOG ####[facility] [place], [place] Anion gap [Moles/Vol] 9 mmol/L [place], [place] Calcium [Mass/Vol] 7.6 mg/dL Low 8.4 - 10. 4 mg/dL [place], [place] Chloride [Moles/Vol] 99 mmol/L 98 - 10 7 mmol/L [place] CO2 [Moles/Vol] 28 mmol/L 22 - 30 mmol/L [place] Creatinine [Mass/Vol] 1.6 mg/dL High 0.52 - 1.25 mg/dL [place] EGFR IF NonAfrican [place]ian 39.8 mL/min Abnormal >60 [place] Comment on above: KDIGO guidelines pro vide the following GFR categories: Stage GFR(ml/min/1.73 m2) Terms G1 >=90 Normal or high G2 60-89 Mildly decreased* G3a 45-59 Mildly to moderately decreased G3b 30-44 Moderately to severely decreased G4 15-29 Severely decreased G5 <15 Kidney failure *Relative to young adult level. In the absence of evidence of kidney damage, neither GFR category G1 nor G2 fulfill the criteria for CKD. The CKD-EPI equation is validated in individuals 18 years of age and older. Currently the best equation for estimating glomerular filtration rate (GFR) from serum creatinine in children is the Bedside Pelletier equation. It is less accurate in patients with extremes of muscle mass, restriction of dietary protein, ingestion of creatine, extra-renal metabolism of creatinine, or treatment with medications that affect renal tubular creatinine secretion. GFR/1.73 sq M predicted among blacks MDRD (S/P/Bld) [Vol rate/Area] 46.2 mL/min/{1.73_m2} Abnormal >60 [place], [place] Glucose [Mass/Vol] 134 mg/dL High 70 - 100 mg/dL [place] Potassium [Moles/Vol] 3.8 mmol/L 3.5 - 5.1 mmol/L [place] Sodium [Moles/Vol] 136 mmol/L 135 - 145 mmol/L [place], [place] Urea nitrogen [Mass/Vol] 51 mg/dL High 7 - 20 mg/dL [place] CBCon 04-04-2020 Erythrocyte distribution width (RBC) [Ratio] 16.6 % High 11.5 - 14.5 % [place] Hematocrit (Bld) [Volume fraction] 25.2 % Low 40 - 52 % [place] Hemoglobin (Bld) [Mass/Vol] 8.5 g/dL Low 13 - 18 g/dL [place] Interpretation and review of laboratory results Abnormal [place] MCH (RBC) [Entitic mass] 30.5 pg 26 - 34 pg [place] MCHC (RBC) [Mass/Vol] 33.5 % 32 - 36 % [place] MCV (RBC) [Entitic vol] 90.9 fL 80 - 98 fL [place] Platelet mean volume (Bld) [Entitic vol] 9.3 fL 7.4 - 10.4 fL [place] Platelets (Bld) [#/Vol] 224 10*3/uL 140 - 440 10*3/uL [place] RBC (Bld) [#/Vol] 2.77 10*6/uL Low 4.4 - 5.9 10*6/uL [place] WBC (Bld) [#/Vol] 13.5 10*3/uL High 3.6 - 10.7 10*3/uL [place] Test Performed by [facility], [address] [place] [address] [facility] [place], [place] CR Chest Portableon 04-04-20 20 CR Chest Portable Normal [facility] Hemogramon 04-04-2020 Erythrocyte distribution width (RBC) [Ratio] 16.6 % High 11.5-14.5 [facility] Comment on above: Performed By: #### P HOS3, MG3, PCAL, BMP3, LFT3, HEMOG ####[address] [place], [place] Hematocrit (Bld) [Volume fraction] 25.2 % Low 40.0-52.0 [facility] Comment on above: Performed By: #### P HOS3, MG3, PCAL, BMP3, LFT3, HEMOG ####[address] [place], [place] Hemoglobin (Bld) [Mass/Vol] 8.5 g/dL Low 13.0-18.0 [facility] Comment on above: Performed By: #### P HOS3, MG3, PCAL, BMP3, LFT3, HEMOG ####[address] [place], [place] MCH (RBC) [Entitic mass] 30.5 pg Normal 26.0-34.0 [facility] Comment on above: Performed By: #### P HOS3, MG3, PCAL, BMP3, LFT3, HEMOG ####[address] [place], [place] MCHC 33.5 % Normal 32.0-36.0 [facility] Comment on above: Performed By: #### P HOS3, MG3, PCAL, BMP3, LFT3, HEMOG ####[address] [place], [place] MCV (RBC) [Entitic vol] 90.9 fL Normal 80.0-98.0 [facility] Comment on above: Performed By: #### P HOS3, MG3, PCAL, BMP3, LFT3, HEMOG ####[address] [place] [address] Platelet mean volume (Bld) [Entitic vol] 9.3 fL Normal 7.4-10.4 [facility] Comment on above: Performed By: #### P HOS3, MG3, PCAL, BMP3, LFT3, HEMOG ####[address] [place], [place] Platelets (Bld) [#/Vol] 224 10*3/uL Normal 140-440 [facility] Comment on above: Performed By: #### P HOS3, MG3, PCAL, BMP3, LFT3, HEMOG ####[address] [place], [place] RBC (Bld) [#/Vol] 2.77 10*6/uL Low 4.40-5.90 [facility] Comment on above: Performed By: #### P HOS3, MG3, PCAL, BMP3, LFT3, HEMOG ####[address] [place], [place] WBC (Bld) [#/Vol] 13.5 10*3/uL High 3.6-10.7 [facility] Comment on above: Performed By: #### P HOS3, MG3, PCAL, BMP3, LFT3, HEMOG ####[address] [place], [place] Hepatic Functionon 0 ALT [Catalytic activity/Vol] 97 U/L High 0-49 [facility] Comment on above: Result Comment: The ALT test is performed by an updated assay method.Please note that the reference intervals have beenchanged and are now sex specific. Performed By: #### P HOS3, MG3, PCAL, BMP3, LFT3, HEMOG ####[address] [place], [place] ALP [Catalytic activity/Vol] 209 U/L High 38-126 [facility] Comment on above: Performed By: #### P HOS3, MG3, PCAL, BMP3, LFT3, HEMOG ####[address] [place], [place] AST [Catalytic activity/Vol] 86 U/L High 15-46 [facility] Comment on above: Performed By: #### P HOS3, MG3, PCAL, BMP3, LFT3, HEMOG ####[address] [place] [place], [place] Bilirubin [Mass/Vol] 6.9 mg/dL High 0.2-1.3 [facility] Comment on above: Performed By: #### P HOS3, MG3, PCAL, BMP3, LFT3, HEMOG ####[address] [place], [place] Bilirubin.indirect [Mass/Vol] 2.6 mg/dL High 0.0-0.3 [facility] Comment on above: Performed By: #### P HOS3, MG3, PCAL, BMP3, LFT3, HEMOG ####[address] [place], [place] Protein [Mass/Vol] 6.1 g/dL Low 6.3-8.2 [facility] Comment on above: Performed By: #### P HOS3, MG3, PCAL, BMP3, LFT3, HEMOG ####[address] [place], [place] Albumin [Mass/Vol] 3.1 g/dL Low 3.5-5.0 [facility] Comment on above: Performed By: #### P HOS3, MG3, PCAL, BMP3, LFT3, HEMOG ####[address] [place], [place] Hepatic Function Panelon Albumin [Mass/Vol] 3.1 g/dL Low 3.5 - 5 g/dL [place], [place] ALP [Catalytic activity/Vol] 209 U/L High 38 - 126 U/L [place], [place] ALT [Catalytic activity/Vol] 97 U/L High 0 - 49 U/L [place] Comment on above: The ALT test is perf ormed by an updated assay method. Please note that the reference intervals have been changed and are now sex specific. AST [Catalytic activity/Vol] 86 U/L High 15 - 46 U/L [place] Bilirubin Ql (U) 6.9 mg/dL High 0.2 - 1.3 mg/dL [place] Bilirubin.direct [Mass/Vol] 2.6 mg/dL High 0 - 0.3 mg/dL [place] Protein [Mass/Vol] 6.1 g/dL Low 6.3 - 8.2 g/dL [place] Magnesiumon 04-04-2020 Magnesium [Mass/Vol] 2.4 mg/dL High 1.6-2.3 [facility] Comment on above: Performed By: #### P HOS3, MG3, PCAL, BMP3, LFT3, HEMOG ####[address] [place], [place] Magnesium [Mass/Vol] 2.4 mg/dL High 1.6 - 2 .3 mg/dL [place], [place] Otheron 04-04-2020 Interpretation and review of laboratory results Abnormal [place], [place] Test Performed by [facility], [address] [place] [address] [place], [place] Phosphoruson 04-04-2020 Phosphate [Mass/Vol] 3.2 mg/dL Normal 2.5-4.5 [facility] Comment on above: Performed By: #### P HOS3, MG3, PCAL, BMP3, LFT3, HEMOG ####[address] [place], [place] Phosphate [Mass/Vol] 3.2 mg/dL 2.5 - 4 .5 mg/dL [place], [place] Procalcitoninon 04-04-2020 Procalcitonin 0.30 ng/mL Abnormal <0.10 [facility] Comment on above: Performed By: #### P HOS3, MG3, PCAL, BMP3, LFT3, HEMOG ####[address] [place] [address] Interpretation and review of laboratory results Abnormal [place] Procalcitonin 0.3 ng/mL Abnormal <0.10 [place] Sodium [Moles/Vol] See Below [place], [place] Comment on above: PCT <0.50 = Low risk of severe sepsis and/or septic shock. PCT >2.00 = High risk of severe sepsis and/or septic shock. Test Performed by [facility], [address] [place] [address] [place], [place] XR CHEST PORTABLEon 04-04-20 Patient Name: KAREN KEARNS ---Diagnostic Radiology--- Exam Date/Time 04/04/2020 06:16:52 EDT Exam CR Chest Portable Ordering Physician ANGELY VALLECILLO Accession Number [id number] CPT4 Codes 77046 () Reason For Exam Shortness of breath Report Portable chest Clinical: Shortness of breath COMPARISON: April 03, 2020 Cardiomegaly appears unchanged. Prior median sternotomy. Pulmonary vascular congestion and mild interstitial edema changes. Bibasilar pleural effusions and basilar infiltrate/atelectasis, minimally improved at the left lung base and similar on the right when compared to the prior days exam. Osseous degenerative changes. Report Dictated on --- Final --- Dictated: 04/04/2020 7:35 am Dictating Physician: MD MACK BRIAN Signed Date and Time: 04/04/2020 7:36 am Signed by: MD MACK BRIAN Transcribed Date and Time: 04/04/2020 7:35 [place], [place] [facility], [facility] Incoming Radiology Results From [facility] - 04/04/2020 7:38 AM EDT Patient Name: KAREN KEARNS ---Diagnostic Radiology--- Exam Date/Time 04/04/2020 06:16:52 EDT Exam CR Chest Portable Ordering Physician ANGELY VALLECILLO Accession Number [id number] CPT4 Codes 65335 () Reason For Exam Shortness of breath Report Portable chest Clinical: Shortness of breath COMPARISON: April 03, 2020 Cardiomegaly appears unchanged. Prior median sternotomy. Pulmonary vascular congestion and mild interstitial edema changes. Bibasilar pleural effusions and basilar infiltrate/atelectasis, minimally improved at the left lung base and similar on the right when compared to the prior days exam. Osseous degenerative changes. Report Dictated on --- Final --- Dictated: 04/04/2020 7:35 am Dictating Physician: MD MACK BRIAN Signed Date and Time: 04/04/2020 7:36 am Signed by: MD MACK BRIAN Transcribed Date and Time: 04/04/2020 7:35 [facility], [place] Basic Metabolic Panelon 10-2 Calcium [Mass/Vol] 8.0 mg/dL Low 8.4-10.4 [facility] Comment on above: Performed By: #### P HOS3, MG3, LFT3, HEMOG, BMP3 ####[address] [place], [place] Glucose [Mass/Vol] 128 mg/dL High 70-100 [facility] Comment on above: Performed By: #### P HOS3, MG3, LFT3, HEMOG, BMP3 ####[address] [place], [place] Anion Gap 9 Normal [facility] Comment on above: Performed By: #### P HOS3, MG3, LFT3, HEMOG, BMP3 ####[address] [place], [place] CO2 [Moles/Vol] 28 mmol/L Normal 22-30 [facility] Comment on above: Performed By: #### P HOS3, MG3, LFT3, HEMOG, BMP3 ####[address] [place], [place] Creatinine [Mass/Vol] 1.57 mg/dL High 0.52-1.25 [facility] Comment on above: Performed By: #### P HOS3, MG3, LFT3, HEMOG, BMP3 ####[address] [place], [place] GFR/1.73 sq M.predicted among blacks MDRD (S/P/Bld) [Vol rate/Area] 47.2 mL/min/{1.73_m2} Abnormal >60 [facility] Comment on above: Performed By: #### P HOS3, MG3, LFT3, HEMOG, BMP3 ####[facility] [address] [place] [address] GFR/1.73 sq M.predicted among non-blacks MDRD (S/P/Bld) [Vol rate/Area] 40.8 mL/min/{1.73_m2} Abnormal >60 [facility] Comment on above: Result Comment: KDIG O guidelines provide the following GFR categories:Stage GFR(ml/min/1.73 m2) TermsG1 >=90 Normal or highG2 60-89 Mildly decreased*G3a 45-59 Mildly to moderately [id number] 30-44 Moderately to severely decreasedG4 15-29 Severely decreasedG5 <15 Kidney failure*Relative to young adult level.In the absence of evidence of kidney damage, neither GFRcategory G1 nor G2 fulfill the criteria for CKD.The CKD-EPI equation is validated in individuals 18 yearsof age and older. Currently the best equation forestimating glomerular filtration rate (GFR) from serumcreatinine in children is the Bedside Pelletier equation.It is less accurate in patients with extremes of musclemass, restriction of dietary protein, ingestion of creatine,extra-renal metabolism of creatinine, or treatment withmedications that affect renal tubular creatinine secretion. Performed By: #### P HOS3, MG3, LFT3, HEMOG, BMP3 ####[facility] [id number] [address] Urea nitrogen [Mass/Vol] 52 mg/dL High 7-20 [facility] Comment on above: Performed By: #### P HOS3, MG3, LFT3, HEMOG, BMP3 ####[facility] [address] [address] Chloride [Moles/Vol] 99 mmol/L Normal 98-107 [facility] Comment on above: Performed By: #### P HOS3, MG3, LFT3, HEMOG, BMP3 ####[facility] [id number] [place] [address] Potassium [Moles/Vol] 3.8 mmol/L Normal 3.5-5.1 [facility] Comment on above: Performed By: #### P HOS3, MG3, LFT3, HEMOG, BMP3 ####[facility] [place], [place] Sodium [Moles/Vol] 136 mmol/L Normal 135-145 [facility] Comment on above: Performed By: #### P HOS3, MG3, LFT3, HEMOG, BMP3 ####[facility] [place], [place] Anion gap [Moles/Vol] 9 mmol/L [place], [place] Calcium [Mass/Vol] 8.0 mg/dL Low 8.4 - 10. 4 mg/dL [place], [place] Chloride [Moles/Vol] 99 mmol/L 98 - 10 7 mmol/L [place] CO2 [Moles/Vol] 28 mmol/L 22 - 30 mmol/L [place] Creatinine [Mass/Vol] 1.57 mg/dL High 0.52 - 1.25 mg/dL [place] EGFR IF NonAfrican [place]ian 40.8 mL/min Abnormal >60 [place] Comment on above: KDIGO guidelines pro vide the following GFR categories: Stage GFR(ml/min/1.73 m2) Terms G1 >=90 Normal or high G2 60-89 Mildly decreased* G3a 45-59 Mildly to moderately decreased G3b 30-44 Moderately to severely decreased G4 15-29 Severely decreased G5 <15 Kidney failure *Relative to young adult level. In the absence of evidence of kidney damage, neither GFR category G1 nor G2 fulfill the criteria for CKD. The CKD-EPI equation is validated in individuals 18 years of age and older. Currently the best equation for estimating glomerular filtration rate (GFR) from serum creatinine in children is the Bedside Pelletier equation. It is less accurate in patients with extremes of muscle mass, restriction of dietary protein, ingestion of creatine, extra-renal metabolism of creatinine, or treatment with medications that affect renal tubular creatinine secretion. GFR/1.73 sq M predicted among blacks MDRD (S/P/Bld) [Vol rate/Area] 47.2 mL/min/{1.73_m2} Abnormal >60 [place], [place] Glucose [Mass/Vol] 128 mg/dL High 70 - 100 mg/dL [place] Potassium [Moles/Vol] 3.8 mmol/L 3.5 - 5.1 mmol/L [place] Sodium [Moles/Vol] 136 mmol/L 135 - 145 mmol/L [place], [place] Urea nitrogen [Mass/Vol] 52 mg/dL High 7 - 20 mg/dL [place] CBCon 04-03-2020 Erythrocyte distribution width (RBC) [Ratio] 15.7 % High 11.5 - 14.5 % [place] Hematocrit (Bld) [Volume fraction] 28.2 % Low 40 - 52 % [place] Hemoglobin (Bld) [Mass/Vol] 9.3 g/dL Low 13 - 18 g/dL [place] Interpretation and review of laboratory results Abnormal [place] MCH (RBC) [Entitic mass] 30.2 pg 26 - 34 pg [place] MCHC (RBC) [Mass/Vol] 32.8 % 32 - 36 % [place] MCV (RBC) [Entitic vol] 92.0 fL 80 - 98 fL [place] Platelet mean volume (Bld) [Entitic vol] 9.6 fL 7.4 - 10.4 fL [place] Platelets (Bld) [#/Vol] 193 10*3/uL 140 - 440 10*3/uL [place] RBC (Bld) [#/Vol] 3.07 10*6/uL Low 4.4 - 5.9 10*6/uL [place] WBC (Bld) [#/Vol] 14.0 10*3/uL High 3.6 - 10.7 10*3/uL [place] Test Performed by [facility], [address] [place] [address] [place], [place] CR Chest Portableon 04-03-20 CR Chest Portable Normal [facility] Gram Stainon 04-03-2020 INR Coag (Bld) [Relative time] Many polymorphonuclear cells/lpf. Many epithelial cells/lpf. Many gram positive cocci in pairs. Moderate gram positive bacilli. Few gram negative bacilli. Smear contains >=15 squamous epithelial cells per low power field, suggestive of poor quality. Culture not performed. Please re-collect if clinically indicated. [facility] PETER Test Performed by [facility], [address] [facility] [place] [address] Specimen Source [facility] Erythrocyte distribution width (RBC) [Ratio] 15.7 % High 11.5-14.5 [facility] Comment on above: Performed By: #### P HOS3, MG3, LFT3, HEMOG, BMP3 ####[address] Hematocrit (Bld) [Volume fraction] 28.2 % Low 40.0-52.0 [facility] Comment on above: Performed By: #### P HOS3, MG3, LFT3, HEMOG, BMP3 ####[address] Hemoglobin (Bld) [Mass/Vol] 9.3 g/dL Low 13.0-18.0 [facility] Comment on above: Performed By: #### P HOS3, MG3, LFT3, HEMOG, BMP3 ####[address] [place], [place] MCH (RBC) [Entitic mass] 30.2 pg Normal 26.0-34.0 [facility] Comment on above: Performed By: #### P HOS3, MG3, LFT3, HEMOG, BMP3 ####[address] MCHC 32.8 % Normal 32.0-36.0 [facility] Comment on above: Performed By: #### P HOS3, MG3, LFT3, HEMOG, BMP3 ####[address] MCV (RBC) [Entitic vol] 92.0 fL Normal 80.0-98.0 [facility] Comment on above: Performed By: #### P HOS3, MG3, LFT3, HEMOG, BMP3 ####[address] [place], [place] Platelet mean volume (Bld) [Entitic vol] 9.6 fL Normal 7.4-10.4 [facility] Comment on above: Performed By: #### P HOS3, MG3, LFT3, HEMOG, BMP3 ####[address] [place], [place] Platelets (Bld) [#/Vol] 193 10*3/uL Normal 140-440 [facility] Comment on above: Performed By: #### P HOS3, MG3, LFT3, HEMOG, BMP3 ####[address] RBC (Bld) [#/Vol] 3.07 10*6/uL Low 4.40-5.90 [facility] Comment on above: Performed By: #### P HOS3, MG3, LFT3, HEMOG, BMP3 ####[address] WBC (Bld) [#/Vol] 14.0 10*3/uL High 3.6-10.7 [facility] Comment on above: Performed By: #### P HOS3, MG3, LFT3, HEMOG, BMP3 ####[address] [place], [place] Hepatic Functionon 10-20-202 0 ALP [Catalytic activity/Vol] 197 U/L High 38-126 [facility] Comment on above: Performed By: #### P HOS3, MG3, LFT3, HEMOG, BMP3 ####[address] [place], [place] ALT [Catalytic activity/Vol] 84 U/L High 0-49 [facility] Comment on above: Result Comment: The ALT test is performed by an updated assay method.Please note that the reference intervals have beenchanged and are now sex specific. Performed By: #### P HOS3, MG3, LFT3, HEMOG, BMP3 ####[address], [place] AST [Catalytic activity/Vol] 88 U/L High 15-46 [facility] Comment on above: Performed By: #### P HOS3, MG3, LFT3, HEMOG, BMP3 ####[address] [place], [place] Bilirubin [Mass/Vol] 7.5 mg/dL High 0.2-1.3 [facility] Comment on above: Performed By: #### P HOS3, MG3, LFT3, HEMOG, BMP3 ####[address] [address] [place], [place] Bilirubin.indirect [Mass/Vol] 3.2 mg/dL High 0.0-0.3 [facility] Comment on above: Performed By: #### P HOS3, MG3, LFT3, HEMOG, BMP3 ####[address] Protein [Mass/Vol] 6.4 g/dL Normal 6.3-8.2 [facility] Comment on above: Performed By: #### P HOS3, MG3, LFT3, HEMOG, BMP3 ####[address] Albumin [Mass/Vol] 3.4 g/dL Low 3.5-5.0 [facility] Comment on above: Performed By: #### P HOS3, MG3, LFT3, HEMOG, BMP3 ####[address] Hepatic Function Panelon Albumin [Mass/Vol] 3.4 g/dL Low 3.5 - 5 g/dL [place], [place] ALP [Catalytic activity/Vol] 197 U/L High 38 - 126 U/L [place], [place] ALT [Catalytic activity/Vol] 84 U/L High 0 - 49 U/L [place] Comment on above: The ALT test is perf ormed by an updated assay method. Please note that the reference intervals have been changed and are now sex specific. AST [Catalytic activity/Vol] 88 U/L High 15 - 46 U/L [place], [place] Bilirubin Ql (U) 7.5 mg/dL High 0.2 - 1.3 mg/dL [place], [place] Bilirubin.direct [Mass/Vol] 3.2 mg/dL High 0 - 0.3 mg/dL [place], [place] Protein [Mass/Vol] 6.4 g/dL 6.3 - 8.2 g/dL [place], [place] Magnesiumon 04-03-2020 Magnesium [Mass/Vol] 2.5 mg/dL High 1.6-2.3 [facility] Comment on above: Performed By: #### P HOS3, MG3, LFT3, HEMOG, BMP3 ####[address] [place] [address] Magnesium [Mass/Vol] 2.5 mg/dL High 1.6 - 2 .3 mg/dL [place], [place] Otheron 04-03-2020 Interpretation and review of laboratory results Abnormal [place], [place] Test Performed by [facility], [address] [place] [address] [place], [place] Phosphoruson 04-03-2020 Phosphate [Mass/Vol] 3.4 mg/dL Normal 2.5-4.5 [facility] Comment on above: Performed By: #### P HOS3, MG3, LFT3, HEMOG, BMP3 ####[address] [place] [address] Phosphate [Mass/Vol] 3.4 mg/dL 2.5 - 4 .5 mg/dL [place], [place] Procalcitoninon 04-03-2020 Interpretation See Below Normal [facility] Comment on above: Result Comment: PCT <0.50 = Low risk of severe sepsis and/or septic shock.PCT >2.00 = High risk of severe sepsis and/or septic shock. Performed By: #### P HOS3, MG3, PCAL, BMP3, LFT3, HEMOG ####[address] [place] [address] STAIN GRAMon 04-03-2020 STAIN GRAM Normal [facility] Comment on above: Order Comment: Speci men Source Comment:Sputum Expectorated Performed By: #### S /GRM ####[address] [place] [address] XR CHEST PORTABLEon 04-03-20 Patient Name: KAREN KEARNS ---Diagnostic Radiology--- Exam Date/Time 04/03/2020 08:57:18 EDT Exam CR Chest Portable Ordering Physician ANGELY MELTON Accession Number [id number] CPT4 Codes 57601 () Reason For Exam Shortness of breath Report Portable chest, single view Clinical: Shortness of breath COMPARISON: April 02, 2020 Stable appearance of cardiomegaly. Prior median sternotomy. Vascular congestion and mild interstitial edema changes, slightly improved. Bibasilar layering pleural effusions and atelectasis. No sizable pneumothorax. Osseous degenerative changes. Remote left-sided rib deformities. Report Dictated on Workstation: [employer] --- Final --- Dictated: 04/03/2020 10:35 am Dictating Physician: MD MACK BRIAN Signed Date and Time: 04/03/2020 10:36 am Signed by: MD MACK BRIAN Transcribed Date and Time: 04/03/2020 10:[address] [facility], [facility] Incoming Radiology Results From [facility] - 04/03/2020 10:37 AM EDT Patient Name: KAREN KEARNS ---Diagnostic Radiology--- Exam Date/Time 04/03/2020 08:57:18 EDT Exam CR Chest Portable Ordering Physician ANGELY MELTON Accession Number [id number] CPT4 Codes 97610 () Reason For Exam Shortness of breath Report Portable chest, single view Clinical: Shortness of breath COMPARISON: April 02, 2020 Stable appearance of cardiomegaly. Prior median sternotomy. Vascular congestion and mild interstitial edema changes, slightly improved. Bibasilar layering pleural effusions and atelectasis. No sizable pneumothorax. Osseous degenerative changes. Remote left-sided rib deformities. Report Dictated on Workstation: [employer] --- Final --- Dictated: 04/03/2020 10:35 am Dictating Physician: MD MACK BRIAN Signed Date and Time: 04/03/2020 10:36 am Signed by: MD MACK BRIAN Transcribed Date and Time: 04/03/2020 10:35 [facility], [place] Basic Metabolic Panelon 10-1 Anion Gap 7 Normal [facility] Comment on above: Performed By: #### B MP3, HEMOG, MG3, PHOS3, LFT3 ####[facility] Calcium [Mass/Vol] 7.9 mg/dL Low 8.4-10.4 [facility] Comment on above: Performed By: #### B MP3, HEMOG, MG3, PHOS3, LFT3 ####[facility] [place] [address] CO2 [Moles/Vol] 29 mmol/L Normal 22-30 [facility] Comment on above: Performed By: #### B MP3, HEMOG, MG3, PHOS3, LFT3 ####[address] Glucose [Mass/Vol] 116 mg/dL High 70-100 [facility] Comment on above: Performed By: #### B MP3, HEMOG, MG3, PHOS3, LFT3 ####[address] [place] [address] Urea nitrogen [Mass/Vol] 49 mg/dL High 7-20 [facility] Comment on above: Performed By: #### B MP3, HEMOG, MG3, PHOS3, LFT3 ####[facility], [place] Creatinine [Mass/Vol] 1.56 mg/dL High 0.52-1.25 [facility] Comment on above: Performed By: #### B MP3, HEMOG, MG3, PHOS3, LFT3 ####[facility] [place] [address] GFR/1.73 sq M.predicted among blacks MDRD (S/P/Bld) [Vol rate/Area] 47.6 mL/min/{1.73_m2} Abnormal >60 [facility] Comment on above: Performed By: #### B MP3, HEMOG, MG3, PHOS3, LFT3 ####[facility] [id number] [place] [address] GFR/1.73 sq M.predicted among non-blacks MDRD (S/P/Bld) [Vol rate/Area] 41.1 mL/min/{1.73_m2} Abnormal >60 [facility] Comment on above: Result Comment: KDIG O guidelines provide the following GFR categories:Stage GFR(ml/min/1.73 m2) TermsG1 >=90 Normal or highG2 60-89 Mildly decreased*G3a 45-59 Mildly to moderately xenhadnztT2k 30-44 Moderately to severely decreasedG4 15-29 Severely decreasedG5 <15 Kidney failure*Relative to young adult level.In the absence of evidence of kidney damage, neither GFRcategory G1 nor G2 fulfill the criteria for CKD.The CKD-EPI equation is validated in individuals 18 yearsof age and older. Currently the best equation forestimating glomerular filtration rate (GFR) from serumcreatinine in children is the Bedside Pelletier equation.It is less accurate in patients with extremes of musclemass, restriction of dietary protein, ingestion of creatine,extra-renal metabolism of creatinine, or treatment withmedications that affect renal tubular creatinine secretion. Performed By: #### B MP3, HEMOG, MG3, PHOS3, LFT3 ####[facility] [id number] [place], [place] Potassium [Moles/Vol] 3.7 mmol/L Normal 3.5-5.1 [facility] Comment on above: Performed By: #### B MP3, HEMOG, MG3, PHOS3, LFT3 ####[facility] [id number] [place] [address] Chloride [Moles/Vol] 97 mmol/L Low 98-107 [facility] Comment on above: Performed By: #### B MP3, HEMOG, MG3, PHOS3, LFT3 ####[address] [place] [address] Sodium [Moles/Vol] 133 mmol/L Low 135-145 [facility] Comment on above: Performed By: #### B MP3, HEMOG, MG3, PHOS3, LFT3 ####[address] [place] [address] Anion gap [Moles/Vol] 7 mmol/L [place], [place] Calcium [Mass/Vol] 7.9 mg/dL Low 8.4 - 10. 4 mg/dL [place], [place] Chloride [Moles/Vol] 97 mmol/L Low 98 - 10 7 mmol/L [place] CO2 [Moles/Vol] 29 mmol/L 22 - 30 mmol/L [place] Creatinine [Mass/Vol] 1.56 mg/dL High 0.52 - 1.25 mg/dL [place], [place] EGFR IF NonAfrican [place]ian 41.1 mL/min Abnormal >60 [place] Comment on above: KDIGO guidelines pro vide the following GFR categories: Stage GFR(ml/min/1.73 m2) Terms G1 >=90 Normal or high G2 60-89 Mildly decreased* G3a 45-59 Mildly to moderately decreased G3b 30-44 Moderately to severely decreased G4 15-29 Severely decreased G5 <15 Kidney failure *Relative to young adult level. In the absence of evidence of kidney damage, neither GFR category G1 nor G2 fulfill the criteria for CKD. The CKD-EPI equation is validated in individuals 18 years of age and older. Currently the best equation for estimating glomerular filtration rate (GFR) from serum creatinine in children is the Bedside Pelletier equation. It is less accurate in patients with extremes of muscle mass, restriction of dietary protein, ingestion of creatine, extra-renal metabolism of creatinine, or treatment with medications that affect renal tubular creatinine secretion. GFR/1.73 sq M predicted among blacks MDRD (S/P/Bld) [Vol rate/Area] 47.6 mL/min/{1.73_m2} Abnormal >60 [place], [place] Glucose [Mass/Vol] 116 mg/dL High 70 - 100 mg/dL [place] Potassium [Moles/Vol] 3.7 mmol/L 3.5 - 5.1 mmol/L [place] Sodium [Moles/Vol] 133 mmol/L Low 135 - 145 mmol/L [place], [place] Urea nitrogen [Mass/Vol] 49 mg/dL High 7 - 20 mg/dL [place] CBCon 04-02-2020 Erythrocyte distribution width (RBC) [Ratio] 15.6 % High 11.5 - 14.5 % [place] Hematocrit (Bld) [Volume fraction] 26.7 % Low 40 - 52 % [place] Hemoglobin (Bld) [Mass/Vol] 8.9 g/dL Low 13 - 18 g/dL [place], [place] Interpretation and review of laboratory results Abnormal [place] MCH (RBC) [Entitic mass] 30.3 pg 26 - 34 pg [place] MCHC (RBC) [Mass/Vol] 33.4 % 32 - 36 % [place], [place] MCV (RBC) [Entitic vol] 90.7 fL 80 - 98 fL [place], [place] Platelet mean volume (Bld) [Entitic vol] 9.7 fL 7.4 - 10.4 fL [place], [place] Platelets (Bld) [#/Vol] 153 10*3/uL 140 - 440 10*3/uL [place] RBC (Bld) [#/Vol] 2.95 10*6/uL Low 4.4 - 5.9 10*6/uL [place] WBC (Bld) [#/Vol] 13.1 10*3/uL High 3.6 - 10.7 10*3/uL [place] Test Performed by [facility], [address] [place] [address] [place], [place] CR Chest Portableon 04-02-20 20 CR Chest Portable Normal [facility] CREATININE, RANDOM URINEon 1 Creatinine (U) [Mass/Vol] 96.1 mg/dL No Range [place], [place] Complete Urinalysison 2019 Appearance (U) Clear Normal Clear [facility] Comment on above: Result Comment: . Performed By: #### N AURR, CRTUR, CUA2, OSMUR, UNURR ####[address] Bacteria LM.HPF (Urine sed) [#/Area] Negative Normal Negative [facility] Comment on above: Result Comment: . Performed By: #### N AURR, CRTUR, CUA2, OSMUR, UNURR ####[address] Bilirubin,Urine 0.5 mg/dL Abnormal Negative [facility] Comment on above: Result Comment: . Performed By: #### N AURR, CRTUR, CUA2, OSMUR, UNURR ####[address] Cast, Hyaline Negative Normal Negative [facility] Comment on above: Result Comment: . Performed By: #### N AURR, CRTUR, CUA2, OSMUR, UNURR ####[address] Color (U) Dark-Yellow Abnormal Lt. Yellow [facility] Comment on above: Result Comment: . Performed By: #### N AURR, CRTUR, CUA2, OSMUR, UNURR ####[address] Glucose Ql (U) Normal Normal Normal (<70) [facility] Comment on above: Result Comment: . Performed By: #### N AURR, CRTUR, CUA2, OSMUR, UNURR ####[address] Ketone,Urine Negative Normal Negative [facility] Comment on above: Result Comment: . Performed By: #### N AURR, CRTUR, CUA2, OSMUR, UNURR ####[address] Leukocytes,Urine 75 Dangelo/uL Abnormal Negative [facility] Comment on above: Result Comment: . Performed By: #### N AURR, CRTUR, CUA2, OSMUR, UNURR ####[address] [place], [place] Mucous Threads Few Normal Negative [facility] Comment on above: Result Comment: . Performed By: #### N AURR, CRTUR, CUA2, OSMUR, UNURR ####[address], [place] Nitrites,Urine Negative Normal Negative [facility] Comment on above: Result Comment: . Performed By: #### N AURR, CRTUR, CUA2, OSMUR, UNURR ####[address] [place], [place] Occult Blood,Urine Negative Normal Negative [facility] Comment on above: Result Comment: . Performed By: #### N AURR, CRTUR, CUA2, OSMUR, UNURR ####[address] [place], [place] pH,Urine 5.0 Normal 5.0-8.0 [facility] Comment on above: Result Comment: . Performed By: #### N AURR, CRTUR, CUA2, OSMUR, UNURR ####[address] [place], [place] RBC, Urine 0 - 2 Normal 0-2 [facility] Comment on above: Result Comment: . Performed By: #### N AURR, CRTUR, CUA2, OSMUR, UNURR ####[address] [place], [place] Specific [place],Urine 1.017 Normal 1.005 - 1.030 [facility] Comment on above: Result Comment: . Performed By: #### N AURR, CRTUR, CUA2, OSMUR, UNURR ####[address] [place], [place] Squamous Epithelial 0 - 2 Normal 3-5 [facility] Comment on above: Result Comment: . Performed By: #### N AURR, CRTUR, CUA2, OSMUR, UNURR ####[address] [place], [place] Total Protein,Urine Negative Normal Negative [facility] Comment on above: Result Comment: . Performed By: #### N AURR, CRTUR, CUA2, OSMUR, UNURR ####[address] [place], [place] Urobilinogen,Urine 4 mg/dL Abnormal Normal (0-1) [facility] Comment on above: Result Comment: . Performed By: #### N AURR, CRTUR, CUA2, OSMUR, UNURR ####[address] WBC, Urine 3 - 5 Normal 0-5 [facility] Comment on above: Result Comment: . Performed By: #### N AURR, CRTUR, CUA2, OSMUR, UNURR ####[address] [place], [place] Creatinine, Ur Randomon 03-15 Creatinine, Ur Random 96.1 mg/dL Normal No Range [facility] Comment on above: Performed By: #### N AURR, CRTUR, CUA2, OSMUR, UNURR ####[address] Hemogramon 04-02-2020 Erythrocyte distribution width (RBC) [Ratio] 15.6 % High 11.5-14.5 [facility] Comment on above: Performed By: #### B MP3, HEMOG, MG3, PHOS3, LFT3 ####[address] [place], [place] Hematocrit (Bld) [Volume fraction] 26.7 % Low 40.0-52.0 [facility] Comment on above: Performed By: #### B MP3, HEMOG, MG3, PHOS3, LFT3 ####[address] Hemoglobin (Bld) [Mass/Vol] 8.9 g/dL Low 13.0-18.0 [facility] Comment on above: Performed By: #### B MP3, HEMOG, MG3, PHOS3, LFT3 ####[address] MCH (RBC) [Entitic mass] 30.3 pg Normal 26.0-34.0 [facility] Comment on above: Performed By: #### B MP3, HEMOG, MG3, PHOS3, LFT3 ####[address] [place], [place] MCHC 33.4 % Normal 32.0-36.0 [facility] Comment on above: Performed By: #### B MP3, HEMOG, MG3, PHOS3, LFT3 ####[address] [place], [place] MCV (RBC) [Entitic vol] 90.7 fL Normal 80.0-98.0 [facility] Comment on above: Performed By: #### B MP3, HEMOG, MG3, PHOS3, LFT3 ####[address] Platelet mean volume (Bld) [Entitic vol] 9.7 fL Normal 7.4-10.4 [facility] Comment on above: Performed By: #### B MP3, HEMOG, MG3, PHOS3, LFT3 ####[address] [place], [place] Platelets (Bld) [#/Vol] 153 10*3/uL Normal 140-440 [facility] Comment on above: Performed By: #### B MP3, HEMOG, MG3, PHOS3, LFT3 ####[address] RBC (Bld) [#/Vol] 2.95 10*6/uL Low 4.40-5.90 [facility] Comment on above: Performed By: #### B MP3, HEMOG, MG3, PHOS3, LFT3 ####[address] [place], [place] WBC (Bld) [#/Vol] 13.1 10*3/uL High 3.6-10.7 [facility] Comment on above: Performed By: #### B MP3, HEMOG, MG3, PHOS3, LFT3 ####[address] Hepatic Functionon 04-02- 0 ALP [Catalytic activity/Vol] 133 U/L High 38-126 [facility] Comment on above: Performed By: #### B MP3, HEMOG, MG3, PHOS3, LFT3 ####[address] ALT [Catalytic activity/Vol] 59 U/L High 0-49 [facility] Comment on above: Result Comment: The ALT test is performed by an updated assay method.Please note that the reference intervals have beenchanged and are now sex specific. Performed By: #### B MP3, HEMOG, MG3, PHOS3, LFT3 ####[address] AST [Catalytic activity/Vol] 64 U/L High 15-46 [facility] Comment on above: Performed By: #### B MP3, HEMOG, MG3, PHOS3, LFT3 ####[address] Bilirubin [Mass/Vol] 8.2 mg/dL High 0.2-1.3 [facility] Comment on above: Performed By: #### B MP3, HEMOG, MG3, PHOS3, LFT3 ####[address] Protein [Mass/Vol] 5.9 g/dL Low 6.3-8.2 [facility] Comment on above: Performed By: #### B MP3, HEMOG, MG3, PHOS3, LFT3 ####[address] Bilirubin.indirect [Mass/Vol] 3.4 mg/dL High 0.0-0.3 [facility] Comment on above: Performed By: #### B MP3, HEMOG, MG3, PHOS3, LFT3 ####[address] Albumin [Mass/Vol] 3.0 g/dL Low 3.5-5.0 [facility] Comment on above: Performed By: #### B MP3, HEMOG, MG3, PHOS3, LFT3 ####[address], [place] Hepatic Function Panelon Albumin [Mass/Vol] 3.0 g/dL Low 3.5 - 5 g/dL [place], [place] ALP [Catalytic activity/Vol] 133 U/L High 38 - 126 U/L [place], [place] ALT [Catalytic activity/Vol] 59 U/L High 0 - 49 U/L [place] Comment on above: The ALT test is perf ormed by an updated assay method. Please note that the reference intervals have been changed and are now sex specific. AST [Catalytic activity/Vol] 64 U/L High 15 - 46 U/L [place] Bilirubin Ql (U) 8.2 mg/dL High 0.2 - 1.3 mg/dL [place], [place] Bilirubin.direct [Mass/Vol] 3.4 mg/dL High 0 - 0.3 mg/dL [place], [place] Protein [Mass/Vol] 5.9 g/dL Low 6.3 - 8.2 g/dL [place] MISCELLANEOUS SENDOUT 1on Sodium [Moles/Vol] free hemo Plasm M [place], [place] 1 [place], [place] Magnesiumon 04-02-2020 Magnesium [Mass/Vol] 2.3 mg/dL Normal 1.6-2.3 [facility] Comment on above: Performed By: #### B MP3, HEMOG, MG3, PHOS3, LFT3 ####[facility] [place] [address] Magnesium [Mass/Vol] 2.3 mg/dL 1.6 - 2 .3 mg/dL [place], [place] Metabolic Panelon 04-02-2020 Sodium [Moles/Vol] see below [place], [place] Comment on above: [facility] ALBA, DEVORAH Hemoglobin, Free, Pl asma: 8.0 mg/dL Reference Range: <8.4 Miscellaneous Referred Testo n 04-02-2020 Result 1: See Below Normal [facility] Comment on above: Result Comment: Hemo globin, Free, Plasma: 8.0 mg/dLReference Range: <8.4 Performed By: #### M SO ####MSO GENERIC SENDOUT#### CUA2 ####[facility] [id number] [place], [place] Osmolality, Urineon 04-02-20 20 Osmolality (U) [Osmolality] 483 mosm/kg 300 - 1000 mosm/kg [place], [place] Test Performed by [facility], [facility] [address] [place], [place] [id number] [place] [address] Osmolality,Urineon 0 Osmolality,Urine 483 mosm/kg Normal 300-1000 [facility] Comment on above: Performed By: #### N AURR, CRTUR, CUA2, OSMUR, UNURR ####[facility] [id number] [place], [place] Otheron 04-02-2020 Test Performed by [facility], [address] [place], [place] [id number] [place] [address] Interpretation and review of laboratory results Abnormal [place], [place] Test Performed by [facility], [address] [place], [place] [id number] [place] [address] Phosphoruson 04-02-2020 Phosphate [Mass/Vol] 3.1 mg/dL Normal 2.5-4.5 [facility] Comment on above: Performed By: #### B MP3, HEMOG, MG3, PHOS3, LFT3 ####[facility] [id number] [place], [place] Phosphate [Mass/Vol] 3.1 mg/dL 2.5 - 4 .5 mg/dL [place], [place] Sodium, Ur Randomon 04-02-20 20 Sodium [Moles/Vol] 10 mmol/L Low 30-90 [facility] Comment on above: Performed By: #### N AURR, CRTUR, CUA2, OSMUR, UNURR ####[facility] [id number] [place] [address] Sodium, Urine, Randomon 03-15 Interpretation and review of laboratory results Abnormal [facility], [place] Sodium (U) [Moles/Vol] 10 mmol/L Low 30 - 90 mmol/L [place], [place] Surgical Pathologyon 020 Sodium [Moles/Vol] SEE BELOW [place], [place] 1 [id number] [facility] PATHOLOGY AND LABORATORY MEDICINE [address] [place] [address] [phone] FINAL PERIPHERAL BLOOD REPORT ___ NAME: KAREN KEARNS : 1940 79 [address] [facility] NO.: [id number] LOCATION: [address] [place] [address] 21 PROCEDURE 03/30/2020 DATE: SURGEON: ZAYDA BRIGGS PA-C RECEIVED DATE: 04/02/2020 ATTENDING ELIZABETH MILLER M.D. REPORT DATE: 04/02/2020 : COPIES TO: ___ DIAGNOSIS: THROMBOCYTOPENIA AND NORMOCYTIC ANEMIA WITH ANISOCYTOSIS, RULE OUT INFECTION, DRUG TOXICITY, BLOOD LOSS/COAGULOPATHY, AND/OR IRON/NUTRITIONAL DEFICIENCIES NO BLASTS, INCREASED SCHISTOCYTES OR DYSGRANULOPOIESIS IS SEEN SENIOR ORACLE DBA/SENIOR ORACLE DBA Signature> ANH CONTEH M.D. ___ CLINICAL INFORMATION: Peripheral Smear SPECIMEN: PERIPHERAL BLOOD SMEAR ___ GROSS DESCRIPTION: Peripheral smear slide prepared for evaluation. LH3/LH3 Disclaimer: The following statement applies to all immunohistochemistry, in situ hybridization, molecular studies, and immunofluorescence testing. The use of one or more reagents in the above tests is regulated as an analyte specific reagent (ASR). These tests were developed and their performance characteristics determined by the clinical laboratories of [facility]. They have not been cleared by the [place] Food and Drug Administration (FDA). The FDA has determined that such clearance or approval is not necessary. All the above immunostains were performed on paraffin embedded tissue. Appropriate positive and negative controls (where applicable) were run in parallel with the patient's specimen; these controls showed expected staining pattern, with acceptable intensity of staining. Immunohistochemical assays have not been validated on decalcified tissues. Results should be interpreted with caution given the raised possibility of false negativity on decalcified specimens. DEPARTMENT OF PATHOLOGY AND LABORATORY MEDICINE [place], [place] [address] [place], [place] UREA NITROGEN, URINEon 04-02 Urea Nitrogen, Random Urine 1050 mg/dL No Range [place], [place] Urea Nitrogen,Ur Randomon Urea nitrogen [Mass/Vol] 1050 mg/dL Normal No Range [facility] Comment on above: Performed By: #### N AURR, CRTUR, CUA2, OSMUR, UNURR ####[facility] [place] [address] Urinalysison 04-02-2020 Appearance (U) Clear Clear NA [place], [place] Comment on above: . Bacteria, UA Negative Negative /[HPF] [place] Comment on above: . Bilirubin Urine 0.5 mg/dL Abnormal Negative [place] Comment on above: . Color (U) Dark-Yellow Abnormal Lt. Yellow NA [place] Comment on above: . Glucose, Ur Normal Normal (<70) mg/dL [place], [place] Comment on above: . Hyaline Casts, UA Negative Negative /[LPF] [place] Comment on above: . Interpretation and review of laboratory results Abnormal [place] Ketones Ql (U) Negative Negative mg/dL [place] Comment on above: . LEUKOCYTES, UA 75 Abnormal Negative Dangelo/uL [place], [place] Comment on above: . Mucous Threads Few Negative /[LPF] [place] Comment on above: . Nitrite, Urine Negative Negative NA [place] Comment on above: . Occult Blood,Urine Negative Negative mg/dL [place] Comment on above: . pH (U) 5.0 [pH] [place], [place] Comment on above: . Protein (U) [Mass/Vol] Negative Negative mg/dL [place] Comment on above: . RBC (U) [#/Vol] 0-2 0 - 2 /[HPF] [place] Comment on above: . Specific [place], Urine 1.017 [place] Comment on above: . Squam Epithel, UA 0-2 3 - 5 /[HPF] [place] Comment on above: . Urobilinogen, Urine 4 mg/dL Abnormal Normal (0-1) [place], [place] Comment on above: . WBC, UA 3-5 0 - 5 /[HPF] [place] Comment on above: . Test Performed by [facility], [address] [place] [id number] [place], [place] XR CHEST PORTABLEon 04-02-20 [facility], [facility] Incoming Radiology Results From [facility] - 04/02/2020 8:07 AM EDT Patient Name: KAREN KEARNS ---Diagnostic Radiology--- Exam Date/Time 04/02/2020 06:02:59 EDT Exam CR Chest Portable Ordering Physician [id number] CARSON Accession Number [id number] CPT4 Codes 14873 () Reason For Exam Shortness of breath Report Examination: Portable Chest, 0517 hours 04/02/2020. Comparison: 04/01/2020. Reason For Study: Shortness of breath. Findings: Cardiac silhouette is enlarged. The aorta is atherosclerotic. Lungs are diminished in volume. Left basilar opacity obscures the hemidiaphragm. Deformity of the left thoracic cage is redemonstrated. Support Devices: None. Conclusion(s): 1. Interstitial edema with no change. 2. Probable left pleural effusion and basilar atelectasis with no change. 3. Cardiomegaly. Report Dictated on --- Final --- Dictated: 04/02/2020 8:05 am Dictating Physician: MD FLORES B NELSON Signed Date and Time: 04/02/2020 8:06 am Signed by: MD FLORES B NELSON Transcribed Date and Time: 04/02/2020 8:05 [place], [place] Patient Name: KAREN KEARNS ---Diagnostic Radiology--- Exam Date/Time 04/02/2020 06:02:59 EDT Exam CR Chest Portable Ordering Physician ANGELY MELTON Accession Number [id number] CPT4 Codes 50232 () Reason For Exam Shortness of breath Report Examination: Portable Chest, 0517 hours 04/02/2020. Comparison: 04/01/2020. Reason For Study: Shortness of breath. Findings: Cardiac silhouette is enlarged. The aorta is atherosclerotic. Lungs are diminished in volume. Left basilar opacity obscures the hemidiaphragm. Deformity of the left thoracic cage is redemonstrated. Support Devices: None. Conclusion(s): 1. Interstitial edema with no change. 2. Probable left pleural effusion and basilar atelectasis with no change. 3. Cardiomegaly. Report Dictated on --- Final --- Dictated: 04/02/2020 8:05 am Dictating Physician: MD FLORES B NELSON Signed Date and Time: 04/02/2020 8:06 am Signed by: MD FLORES B NELSON Transcribed Date and Time: 04/02/2020 8:05 [place], [place] Basic Metabolic Panelon 10- Calcium [Mass/Vol] 8.0 mg/dL Low 8.4-10.4 [facility] Comment on above: Performed By: #### B MP3, HEMOG, LFT3, MG3, PHOS3 ####[address] [place], [place] Glucose [Mass/Vol] 93 mg/dL Normal 70-100 [facility] Comment on above: Performed By: #### B MP3, HEMOG, LFT3, MG3, PHOS3 ####[address] [place], [place] Urea nitrogen [Mass/Vol] 50 mg/dL High 7-20 [facility] Comment on above: Performed By: #### B MP3, HEMOG, LFT3, MG3, PHOS3 ####[address] [place], [place] Anion Gap 8 Normal [facility] Comment on above: Performed By: #### B MP3, HEMOG, LFT3, MG3, PHOS3 ####[address] [place], [place] CO2 [Moles/Vol] 29 mmol/L Normal 22-30 [facility] Comment on above: Performed By: #### B MP3, HEMOG, LFT3, MG3, PHOS3 ####[address] [place], [place] Creatinine [Mass/Vol] 1.72 mg/dL High 0.52-1.25 [facility] Comment on above: Performed By: #### B MP3, HEMOG, LFT3, MG3, PHOS3 ####[address] [place], [place] GFR/1.73 sq M.predicted among blacks MDRD (S/P/Bld) [Vol rate/Area] 42.3 mL/min/{1.73_m2} Abnormal >60 [facility] Comment on above: Performed By: #### B MP3, HEMOG, LFT3, MG3, PHOS3 ####[address] [place] [address] GFR/1.73 sq M.predicted among non-blacks MDRD (S/P/Bld) [Vol rate/Area] 36.5 mL/min/{1.73_m2} Abnormal >60 [facility] Comment on above: Result Comment: KDIG O guidelines provide the following GFR categories:Stage GFR(ml/min/1.73 m2) TermsG1 >=90 Normal or highG2 60-89 Mildly decreased*G3a 45-59 Mildly to moderately [id number] 30-44 Moderately to severely decreasedG4 15-29 Severely decreasedG5 <15 Kidney failure*Relative to young adult level.In the absence of evidence of kidney damage, neither GFRcategory G1 nor G2 fulfill the criteria for CKD.The CKD-EPI equation is validated in individuals 18 yearsof age and older. Currently the best equation forestimating glomerular filtration rate (GFR) from serumcreatinine in children is the Bedside Pelletier equation.It is less accurate in patients with extremes of musclemass, restriction of dietary protein, ingestion of creatine,extra-renal metabolism of creatinine, or treatment withmedications that affect renal tubular creatinine secretion. Performed By: #### B MP3, HEMOG, LFT3, MG3, PHOS3 ####[facility] [id number], [place] Chloride [Moles/Vol] 98 mmol/L Normal 98-107 [facility] Comment on above: Performed By: #### B MP3, HEMOG, LFT3, MG3, PHOS3 ####[address] [place], [place] Potassium [Moles/Vol] 3.6 mmol/L Normal 3.5-5.1 [facility] Comment on above: Performed By: #### B MP3, HEMOG, LFT3, MG3, PHOS3 ####[address] [place], [place] Sodium [Moles/Vol] 135 mmol/L Normal 135-145 [facility] Comment on above: Performed By: #### B MP3, HEMOG, LFT3, MG3, PHOS3 ####[address] [place], [place] Anion gap [Moles/Vol] 8 mmol/L [place], [place] Calcium [Mass/Vol] 8.0 mg/dL Low 8.4 - 10. 4 mg/dL [place], [place] Chloride [Moles/Vol] 98 mmol/L 98 - 10 7 mmol/L [place] CO2 [Moles/Vol] 29 mmol/L 22 - 30 mmol/L [place] Creatinine [Mass/Vol] 1.72 mg/dL High 0.52 - 1.25 mg/dL [place] EGFR IF NonAfrican [place]ian 36.5 mL/min Abnormal >60 [place] Comment on above: KDIGO guidelines pro vide the following GFR categories: Stage GFR(ml/min/1.73 m2) Terms G1 >=90 Normal or high G2 60-89 Mildly decreased* G3a 45-59 Mildly to moderately decreased G3b 30-44 Moderately to severely decreased G4 15-29 Severely decreased G5 <15 Kidney failure *Relative to young adult level. In the absence of evidence of kidney damage, neither GFR category G1 nor G2 fulfill the criteria for CKD. The CKD-EPI equation is validated in individuals 18 years of age and older. Currently the best equation for estimating glomerular filtration rate (GFR) from serum creatinine in children is the Bedside Pelletier equation. It is less accurate in patients with extremes of muscle mass, restriction of dietary protein, ingestion of creatine, extra-renal metabolism of creatinine, or treatment with medications that affect renal tubular creatinine secretion. GFR/1.73 sq M predicted among blacks MDRD (S/P/Bld) [Vol rate/Area] 42.3 mL/min/{1.73_m2} Abnormal >60 [place], [place] Glucose [Mass/Vol] 93 mg/dL 70 - 100 mg/dL [place] Potassium [Moles/Vol] 3.6 mmol/L 3.5 - 5.1 mmol/L [place] Sodium [Moles/Vol] 135 mmol/L 135 - 145 mmol/L [place] Urea nitrogen [Mass/Vol] 50 mg/dL High 7 - 20 mg/dL [place] CBCon 04-01-2020 Erythrocyte distribution width (RBC) [Ratio] 15.6 % High 11.5 - 14.5 % [place] Hematocrit (Bld) [Volume fraction] 27.6 % Low 40 - 52 % [place] Hemoglobin (Bld) [Mass/Vol] 9.3 g/dL Low 13 - 18 g/dL [place] Interpretation and review of laboratory results Abnormal [place] MCH (RBC) [Entitic mass] 30.4 pg 26 - 34 pg [place] MCHC (RBC) [Mass/Vol] 33.6 % 32 - 36 % [place] MCV (RBC) [Entitic vol] 90.4 fL 80 - 98 fL [place] Platelet mean volume (Bld) [Entitic vol] 9.2 fL 7.4 - 10.4 fL [place] Platelets (Bld) [#/Vol] 124 10*3/uL Low 140 - 440 10*3/uL [place] RBC (Bld) [#/Vol] 3.05 10*6/uL Low 4.4 - 5.9 10*6/uL [place] WBC (Bld) [#/Vol] 11.4 10*3/uL High 3.6 - 10.7 10*3/uL [place] Test Performed by [facility], [address] [place] [address] [place], [place] CR Abdomen APon 04-01-2020 CR [facility]domen AP [facility] CR Chest Portableon 04-01-20 20 CR Chest Portable Normal [facility] Glucose,Bedsideon 04-01-2020 Glucose [Mass/Vol] 127 mg/dL High 70-100 [facility] Comment on above: Result Comment: Test performed by glucose meter. Results may be 10%-15% lowerthan serum/plasma values. (CLIA ID [id number]) Performed By: #### B GLU ####[facility] [place] [address] Hemogramon 04-01-2020 Erythrocyte distribution width (RBC) [Ratio] 15.6 % High 11.5-14.5 [facility] Comment on above: Performed By: #### B MP3, HEMOG, LFT3, MG3, PHOS3 ####[address] [place], [place] Hematocrit (Bld) [Volume fraction] 27.6 % Low 40.0-52.0 [facility] Comment on above: Performed By: #### B MP3, HEMOG, LFT3, MG3, PHOS3 ####[address] [place], [place] Hemoglobin (Bld) [Mass/Vol] 9.3 g/dL Low 13.0-18.0 [facility] Comment on above: Performed By: #### B MP3, HEMOG, LFT3, MG3, PHOS3 ####[address] [place], [place] MCH (RBC) [Entitic mass] 30.4 pg Normal 26.0-34.0 [facility] Comment on above: Performed By: #### B MP3, HEMOG, LFT3, MG3, PHOS3 ####[address] MCHC 33.6 % Normal 32.0-36.0 [facility] Comment on above: Performed By: #### B MP3, HEMOG, LFT3, MG3, PHOS3 ####[address] [place], [place] MCV (RBC) [Entitic vol] 90.4 fL Normal 80.0-98.0 [facility] Comment on above: Performed By: #### B MP3, HEMOG, LFT3, MG3, PHOS3 ####[address] [place], [place] Platelet mean volume (Bld) [Entitic vol] 9.2 fL Normal 7.4-10.4 [facility] Comment on above: Performed By: #### B MP3, HEMOG, LFT3, MG3, PHOS3 ####[address] Platelets (Bld) [#/Vol] 124 10*3/uL Low 140-440 [facility] Comment on above: Performed By: #### B MP3, HEMOG, LFT3, MG3, PHOS3 ####[address] [place], [place] RBC (Bld) [#/Vol] 3.05 10*6/uL Low 4.40-5.90 [facility] Comment on above: Performed By: #### B MP3, HEMOG, LFT3, MG3, PHOS3 ####[address] [place], [place] WBC (Bld) [#/Vol] 11.4 10*3/uL High 3.6-10.7 [facility] Comment on above: Performed By: #### B MP3, HEMOG, LFT3, MG3, PHOS3 ####[address] [place], [place] Hepatic Functionon 04-01-202 0 ALP [Catalytic activity/Vol] 88 U/L Normal 38-126 [facility] Comment on above: Performed By: #### B MP3, HEMOG, LFT3, MG3, PHOS3 ####[address] [place], [place] ALT [Catalytic activity/Vol] 42 U/L Normal 0-49 [facility] Comment on above: Result Comment: The ALT test is performed by an updated assay method.Please note that the reference intervals have beenchanged and are now sex specific. Performed By: #### B MP3, HEMOG, LFT3, MG3, PHOS3 ####[address] AST [Catalytic activity/Vol] 61 U/L High 15-46 [facility] Comment on above: Performed By: #### B MP3, HEMOG, LFT3, MG3, PHOS3 ####[address] [place], [place] Bilirubin [Mass/Vol] 10.6 mg/dL High 0.2-1.3 [facility] Comment on above: Performed By: #### B MP3, HEMOG, LFT3, MG3, PHOS3 ####[facility], [place] Bilirubin.indirect [Mass/Vol] 5.4 mg/dL High 0.0-0.3 [facility] Comment on above: Performed By: #### B MP3, HEMOG, LFT3, MG3, PHOS3 ####[facility] [place], [place] Protein [Mass/Vol] 6.0 g/dL Low 6.3-8.2 [facility] Comment on above: Performed By: #### B MP3, HEMOG, LFT3, MG3, PHOS3 ####[facility] [place], [place] Albumin [Mass/Vol] 3.2 g/dL Low 3.5-5.0 [facility] Comment on above: Performed By: #### B MP3, HEMOG, LFT3, MG3, PHOS3 ####[facility] [place], [place] Hepatic Function Panelon Albumin [Mass/Vol] 3.2 g/dL Low 3.5 - 5 g/dL [place], [place] ALP [Catalytic activity/Vol] 88 U/L 38 - 126 U/L [place] ALT [Catalytic activity/Vol] 42 U/L 0 - 49 U/L [place] Comment on above: The ALT test is perf ormed by an updated assay method. Please note that the reference intervals have been changed and are now sex specific. AST [Catalytic activity/Vol] 61 U/L High 15 - 46 U/L [place] Bilirubin Ql (U) 10.6 mg/dL High 0.2 - 1.3 mg/dL [place] Bilirubin.direct [Mass/Vol] 5.4 mg/dL High 0 - 0.3 mg/dL [place] Protein [Mass/Vol] 6.0 g/dL Low 6.3 - 8.2 g/dL [place] Magnesiumon 04-01-2020 Magnesium [Mass/Vol] 2.3 mg/dL Normal 1.6-2.3 [facility] Comment on above: Performed By: #### B MP3, HEMOG, LFT3, MG3, PHOS3 ####[facility] [place] [address] Magnesium [Mass/Vol] 2.3 mg/dL 1.6 - 2 .3 mg/dL [place] Otheron 04-01-2020 Interpretation and review of laboratory results Abnormal [place] Test Performed by [facility], [address] [place] [address] [place] POCT Glucoseon 04-01-2020 Glucose [Mass/Vol] 127 mg/dL High 70 - 100 mg/dL [place] Comment on above: Test performed by ucose meter. Results may be 10%-15% lower than serum/plasma values. (CLIA ID [id number]) Interpretation and review of laboratory results Abnormal [place] Test Performed by [address] [address] [place] Phosphoruson 04-01-2020 Phosphate [Mass/Vol] 3.5 mg/dL Normal 2.5-4.5 [facility] Comment on above: Performed By: #### B MP3, HEMOG, LFT3, MG3, PHOS3 ####[address] [place] [address] Phosphate [Mass/Vol] 3.5 mg/dL 2.5 - 4 .5 mg/dL [place] US RETROPERITONEAL COMPLETEo n 04-01-2020 Patient Name: KAREN KEARNS ---Ultrasound--- Exam Date/Time 04/01/2020 21:11:43 EDT Exam US Retroperitoneal Complete Ordering Physician [id number] -LITO MAE Accession Number [id number] CPT4 Codes 92179 () Reason For Exam ashleigh Report RENAL ULTRASOUND: INDICATION: Renal insufficiency COMPARISON: No prior studies are available for comparison. Sonographic images of the bilateral kidneys and bladder were obtained. The right kidney measures 7.0 x 3.0 x 2.5 cm. Parenchymal echotexture is normal. A 1.3 cm superior pole cyst is present. There is no evidence of hydronephrosis or renal calculus. The left kidney measures 12.7 x 6.0 x 6.9 cm. Parenchymal echotexture is normal. A 1.8 cm parapelvic cyst is present. There is no evidence of hydronephrosis or renal calculus. A small amount of perinephric fluid is noted. No mass or fluid collection is seen adjacent to the kidneys. The bladder is grossly unremarkable. IMPRESSION: Unremarkable renal ultrasound. Bilateral renal cysts Report Dictated on Workstation: [id number] --- Final --- Dictated: 04/01/2020 9:56 pm Dictating Physician: DO MURRAY ALFRED Signed Date and Time: 04/01/2020 9:58 pm Signed by: DO MURRAY ALFRED Transcribed Date and Time: 04/01/2020 9:56 [place], [place] [facility], [facility] Incoming Radiology Results From [facility] - 04/01/2020 9:59 PM EDT Patient Name: KAREN KEARNS ---Ultrasound--- Exam Date/Time 04/01/2020 21:11:43 EDT Exam US Retroperitoneal Complete Ordering Physician [id number] -LITO MAE Accession Number [id number] CPT4 Codes 03253 () Reason For Exam ashleigh Report RENAL ULTRASOUND: INDICATION: Renal insufficiency COMPARISON: No prior studies are available for comparison. Sonographic images of the bilateral kidneys and bladder were obtained. The right kidney measures 7.0 x 3.0 x 2.5 cm. Parenchymal echotexture is normal. A 1.3 cm superior pole cyst is present. There is no evidence of hydronephrosis or renal calculus. The left kidney measures 12.7 x 6.0 x 6.9 cm. Parenchymal echotexture is normal. A 1.8 cm parapelvic cyst is present. There is no evidence of hydronephrosis or renal calculus. A small amount of perinephric fluid is noted. No mass or fluid collection is seen adjacent to the kidneys. The bladder is grossly unremarkable. IMPRESSION: Unremarkable renal ultrasound. Bilateral renal cysts Report Dictated on Workstation: [id number] --- Final --- Dictated: 04/01/2020 9:56 pm Dictating Physician: DO MURRAY ALFRED Signed Date and Time: 04/01/2020 9:58 pm Signed by: DO MURRAY ALFRED Transcribed Date and Time: 04/01/2020 9:56 [place], [place] US Retroperitoneal Completeo n 04-01-2020 US Retroperitoneal Complete Normal [facility] XR ABDOMEN (KUB) (SINGLE AP VIEW)on 04-01-2020 Prabhu, [facility] Incoming Radiology Results From [facility] - 04/01/2020 11:29 AM EDT Patient Name: KAREN KEARNS ---Diagnostic Radiology--- Exam Date/Time 04/01/2020 08:09:19 EDT Exam CR Abdomen AP Ordering Physician HARINDER ARMENDARIZ, ESTELA Brewster Accession Number [id number] CPT4 Codes 63261 () Reason For Exam abdominal distension Report HISTORY: Abdominal distention Portable views the abdomen and pelvis show nonspecific bowel gas pattern with scattered air throughout the colon without distention with minimal small bowel air. Moderate calcific atherosclerosis, calcified splenic granulomas, prior surgery in the region of GE junction Report Dictated on --- Final --- Dictated: 04/01/2020 11:27 am Dictating Physician: MD WILKS WILLIAM Signed Date and Time: 04/01/2020 11:28 am Signed by: MD WILKS WILLIAM Transcribed Date and Time: 04/01/2020 11:27 [place] Patient Name: KAREN KEARNS ---Diagnostic Radiology--- Exam Date/Time 04/01/2020 08:09:19 EDT Exam CR Abdomen AP Ordering Physician HARINDER ARMENDARIZ ANDREW G Accession Number [id number] CPT4 Codes 39779 () Reason For Exam abdominal distension Report HISTORY: Abdominal distention Portable views the abdomen and pelvis show nonspecific bowel gas pattern with scattered air throughout the colon without distention with minimal small bowel air. Moderate calcific atherosclerosis, calcified splenic granulomas, prior surgery in the region of GE junction Report Dictated on --- Final --- Dictated: 04/01/2020 11:27 am Dictating Physician: MD WILKS WILLIAM Signed Date and Time: 04/01/2020 11:28 am Signed by: MD WILKS WILLIAM Transcribed Date and Time: 04/01/2020 11:27 [place] XR CHEST PORTABLEon 04-01-20 [facility], [facility] Incoming Radiology Results From [facility] - 04/01/2020 6:43 AM EDT Patient Name: KAREN KEARNS ---Diagnostic Radiology--- Exam Date/Time 04/01/2020 06:43:36 EDT Exam CR Chest Portable Ordering Physician [id number] العلي Accession Number [id number] CPT4 Codes 21432 () Reason For Exam Shortness of breath Report CHEST - PORTABLE: CLINICAL INDICATION: Respiratory distress for follow up TECHNIQUE: Portable AP COMPARISON: One day ago FINDINGS: Life support devices: Right jugular venous sheath is noted Heart/Mediastinum: Unchanged Lungs/Pleura: Ill-defined increased density remains in the lower hemithoraces. There is some vascular congestion as well. The costophrenic angles are obscured. IMPRESSION: Consolidation or atelectasis at the bases along with increased vascular congestion. Report Dictated on Workstation: [id number] --- Final --- Dictated: 04/01/2020 6:26 am Dictating Physician: MD HERNANDEZ JEFFREY Signed Date and Time: 04/01/2020 6:27 am Signed by: MD HERNANDEZ JEFFREY Transcribed Date and Time: 04/01/2020 6:26 [place] Patient Name: KAREN KERANS ---Diagnostic Radiology--- Exam Date/Time 04/01/2020 06:43:36 EDT Exam CR Chest Portable Ordering Physician [id number] العلي Accession Number [id number] CPT4 Codes 41252 () Reason For Exam Shortness of breath Report CHEST - PORTABLE: CLINICAL INDICATION: Respiratory distress for follow up TECHNIQUE: Portable AP COMPARISON: One day ago FINDINGS: Life support devices: Right jugular venous sheath is noted Heart/Mediastinum: Unchanged Lungs/Pleura: Ill-defined increased density remains in the lower hemithoraces. There is some vascular congestion as well. The costophrenic angles are obscured. IMPRESSION: Consolidation or atelectasis at the bases along with increased vascular congestion. Report Dictated on Workstation: [id number] --- Final --- Dictated: 04/01/2020 6:26 am Dictating Physician: MD HERNANDEZ JEFFREY Signed Date and Time: 04/01/2020 6:27 am Signed by: MD HERNANDEZ JEFFREY Transcribed Date and Time: 04/01/2020 6:26 [facility], [place] Basic Metabolic Panelon 10- Calcium [Mass/Vol] 8.1 mg/dL Low 8.4-10.4 [facility] Comment on above: Performed By: #### R TCS, BMP3, LFT3, HEMOG, PHOS3, MG3 ####[address] [place], [place] Anion Gap 8 Normal [facility] Comment on above: Performed By: #### R TCS, BMP3, LFT3, HEMOG, PHOS3, MG3 ####[address] [place], [place] CO2 [Moles/Vol] 30 mmol/L Normal 22-30 [facility] Comment on above: Performed By: #### R TCS, BMP3, LFT3, HEMOG, PHOS3, MG3 ####[address] [place], [place] Creatinine [Mass/Vol] 1.67 mg/dL High 0.52-1.25 [facility] Comment on above: Performed By: #### R TCS, BMP3, LFT3, HEMOG, PHOS3, MG3 ####[address] [place], [place] GFR/1.73 sq M.predicted among blacks MDRD (S/P/Bld) [Vol rate/Area] 43.8 mL/min/{1.73_m2} Abnormal >60 [facility] Comment on above: Performed By: #### R TCS, BMP3, LFT3, HEMOG, PHOS3, MG3 ####[address] [place], [place] GFR/1.73 sq M.predicted among non-blacks MDRD (S/P/Bld) [Vol rate/Area] 37.8 mL/min/{1.73_m2} Abnormal >60 [facility] Comment on above: Result Comment: KDIG O guidelines provide the following GFR categories:Stage GFR(ml/min/1.73 m2) TermsG1 >=90 Normal or highG2 60-89 Mildly decreased*G3a 45-59 Mildly to moderately [id number] 30-44 Moderately to severely decreasedG4 15-29 Severely decreasedG5 <15 Kidney failure*Relative to young adult level.In the absence of evidence of kidney damage, neither GFRcategory G1 nor G2 fulfill the criteria for CKD.The CKD-EPI equation is validated in individuals 18 yearsof age and older. Currently the best equation forestimating glomerular filtration rate (GFR) from serumcreatinine in children is the Bedside Pelletier equation.It is less accurate in patients with extremes of musclemass, restriction of dietary protein, ingestion of creatine,extra-renal metabolism of creatinine, or treatment withmedications that affect renal tubular creatinine secretion. Performed By: #### R TCS, BMP3, LFT3, HEMOG, PHOS3, MG3 ####[facility] [facility] [id number], [place] Glucose [Mass/Vol] 155 mg/dL High 70-100 [facility] Comment on above: Performed By: #### R TCS, BMP3, LFT3, HEMOG, PHOS3, MG3 ####[facility] [id number] [place], [place] Urea nitrogen [Mass/Vol] 46 mg/dL High 7-20 [facility] Comment on above: Performed By: #### R TCS, BMP3, LFT3, HEMOG, PHOS3, MG3 ####[facility] [id number] [place], [place] Potassium [Moles/Vol] 3.5 mmol/L Normal 3.5-5.1 [facility] Comment on above: Performed By: #### R TCS, BMP3, LFT3, HEMOG, PHOS3, MG3 ####[facility] [id number] [place], [place] Chloride [Moles/Vol] 95 mmol/L Low 98-107 [facility] Comment on above: Performed By: #### R TCS, BMP3, LFT3, HEMOG, PHOS3, MG3 ####[facility] [place], [place] Sodium [Moles/Vol] 132 mmol/L Low 135-145 [facility] Comment on above: Performed By: #### R TCS, BMP3, LFT3, HEMOG, PHOS3, MG3 ####[facility] [place], [place] Anion gap [Moles/Vol] 8 mmol/L [place], [place] Calcium [Mass/Vol] 8.1 mg/dL Low 8.4 - 10. 4 mg/dL [place], [place] Chloride [Moles/Vol] 95 mmol/L Low 98 - 10 7 mmol/L [place] CO2 [Moles/Vol] 30 mmol/L 22 - 30 mmol/L [place] Creatinine [Mass/Vol] 1.67 mg/dL High 0.52 - 1.25 mg/dL [place], [place] EGFR IF NonAfrican [place]ian 37.8 mL/min Abnormal >60 [place], [place] Comment on above: KDIGO guidelines pro vide the following GFR categories: Stage GFR(ml/min/1.73 m2) Terms G1 >=90 Normal or high G2 60-89 Mildly decreased* G3a 45-59 Mildly to moderately decreased G3b 30-44 Moderately to severely decreased G4 15-29 Severely decreased G5 <15 Kidney failure *Relative to young adult level. In the absence of evidence of kidney damage, neither GFR category G1 nor G2 fulfill the criteria for CKD. The CKD-EPI equation is validated in individuals 18 years of age and older. Currently the best equation for estimating glomerular filtration rate (GFR) from serum creatinine in children is the Bedside Pelletier equation. It is less accurate in patients with extremes of muscle mass, restriction of dietary protein, ingestion of creatine, extra-renal metabolism of creatinine, or treatment with medications that affect renal tubular creatinine secretion. GFR/1.73 sq M predicted among blacks MDRD (S/P/Bld) [Vol rate/Area] 43.8 mL/min/{1.73_m2} Abnormal >60 [place], [place] Glucose [Mass/Vol] 155 mg/dL High 70 - 100 mg/dL [place] Potassium [Moles/Vol] 3.5 mmol/L 3.5 - 5.1 mmol/L [place] Sodium [Moles/Vol] 132 mmol/L Low 135 - 145 mmol/L [place] Urea nitrogen [Mass/Vol] 46 mg/dL High 7 - 20 mg/dL [place] CBCon 03-31-2020 Erythrocyte distribution width (RBC) [Ratio] 15.4 % High 11.5 - 14.5 % [place] Hematocrit (Bld) [Volume fraction] 27.4 % Low 40 - 52 % [place] Hemoglobin (Bld) [Mass/Vol] 9.4 g/dL Low 13 - 18 g/dL [place] Interpretation and review of laboratory results Abnormal [place] MCH (RBC) [Entitic mass] 30.7 pg 26 - 34 pg [place] MCHC (RBC) [Mass/Vol] 34.4 % 32 - 36 % [place] MCV (RBC) [Entitic vol] 89.1 fL 80 - 98 fL [place] Platelet mean volume (Bld) [Entitic vol] 9.5 fL 7.4 - 10.4 fL [place] Platelets (Bld) [#/Vol] 92 10*3/uL Low 140 - 440 10*3/uL [place] RBC (Bld) [#/Vol] 3.07 10*6/uL Low 4.4 - 5.9 10*6/uL [place] WBC (Bld) [#/Vol] 8.5 10*3/uL 3.6 - 10.7 10*3/uL [place] Test Performed by [facility], [address] [place] [address] [place], [place] CR Chest Portableon 03-31-20 20 CR Chest Portable Normal [facility] Hemogramon 03-31-2020 Erythrocyte distribution width (RBC) [Ratio] 15.4 % High 11.5-14.5 [facility] Comment on above: Performed By: #### R TCS, BMP3, LFT3, HEMOG, PHOS3, MG3 ####[address] Hematocrit (Bld) [Volume fraction] 27.4 % Low 40.0-52.0 [facility] Comment on above: Performed By: #### R TCS, BMP3, LFT3, HEMOG, PHOS3, MG3 ####[address] Hemoglobin (Bld) [Mass/Vol] 9.4 g/dL Low 13.0-18.0 [facility] Comment on above: Performed By: #### R TCS, BMP3, LFT3, HEMOG, PHOS3, MG3 ####[address] MCH (RBC) [Entitic mass] 30.7 pg Normal 26.0-34.0 [facility] Comment on above: Performed By: #### R TCS, BMP3, LFT3, HEMOG, PHOS3, MG3 ####[address] MCHC 34.4 % Normal 32.0-36.0 [facility] Comment on above: Performed By: #### R TCS, BMP3, LFT3, HEMOG, PHOS3, MG3 ####[address] MCV (RBC) [Entitic vol] 89.1 fL Normal 80.0-98.0 [facility] Comment on above: Performed By: #### R TCS, BMP3, LFT3, HEMOG, PHOS3, MG3 ####[address] Platelet mean volume (Bld) [Entitic vol] 9.5 fL Normal 7.4-10.4 [facility] Comment on above: Performed By: #### R TCS, BMP3, LFT3, HEMOG, PHOS3, MG3 ####[place] [address] [place] [place], [place] Platelets (Bld) [#/Vol] 92 10*3/uL Low 140-440 [facility] Comment on above: Performed By: #### R TCS, BMP3, LFT3, HEMOG, PHOS3, MG3 ####[place] [address] [place], [place] RBC (Bld) [#/Vol] 3.07 10*6/uL Low 4.40-5.90 [facility] Comment on above: Performed By: #### R TCS, BMP3, LFT3, HEMOG, PHOS3, MG3 ####[place] [address] [place], [place] WBC (Bld) [#/Vol] 8.5 10*3/uL Normal 3.6-10.7 [facility] Comment on above: Performed By: #### R TCS, BMP3, LFT3, HEMOG, PHOS3, MG3 ####[place] [address] [place], [place] Hepatic Functionon 202 0 ALP [Catalytic activity/Vol] 90 U/L Normal 38-126 [facility] Comment on above: Performed By: #### R TCS, BMP3, LFT3, HEMOG, PHOS3, MG3 ####[place] [address] [place], [place] ALT [Catalytic activity/Vol] 21 U/L Normal 0-49 [facility] Comment on above: Result Comment: The ALT test is performed by an updated assay method.Please note that the reference intervals have beenchanged and are now sex specific. Performed By: #### R TCS, BMP3, LFT3, HEMOG, PHOS3, MG3 ####[place] [address] [place], [place] AST [Catalytic activity/Vol] 40 U/L Normal 15-46 [facility] Comment on above: Performed By: #### R TCS, BMP3, LFT3, HEMOG, PHOS3, MG3 ####[place] [address] [place], [place] Bilirubin [Mass/Vol] 12.3 mg/dL High 0.2-1.3 [facility] Comment on above: Performed By: #### R TCS, BMP3, LFT3, HEMOG, PHOS3, MG3 ####[address] [place], [place] Bilirubin.indirect [Mass/Vol] 6.4 mg/dL High 0.0-0.3 [facility] Comment on above: Performed By: #### R TCS, BMP3, LFT3, HEMOG, PHOS3, MG3 ####[address] [place] [address] [place], [place] Protein [Mass/Vol] 5.9 g/dL Low 6.3-8.2 [facility] Comment on above: Performed By: #### R TCS, BMP3, LFT3, HEMOG, PHOS3, MG3 ####[address] [place], [place] Albumin [Mass/Vol] 3.2 g/dL Low 3.5-5.0 [facility] Comment on above: Performed By: #### R TCS, BMP3, LFT3, HEMOG, PHOS3, MG3 ####[address] Hepatic Function Panelon Albumin [Mass/Vol] 3.2 g/dL Low 3.5 - 5 g/dL [place], [place] ALP [Catalytic activity/Vol] 90 U/L 38 - 126 U/L [place] ALT [Catalytic activity/Vol] 21 U/L 0 - 49 U/L [place] Comment on above: The ALT test is perf ormed by an updated assay method. Please note that the reference intervals have been changed and are now sex specific. AST [Catalytic activity/Vol] 40 U/L 15 - 46 U/L [place] Bilirubin Ql (U) 12.3 mg/dL High 0.2 - 1.3 mg/dL [place] Bilirubin.direct [Mass/Vol] 6.4 mg/dL High 0 - 0.3 mg/dL [place] Protein [Mass/Vol] 5.9 g/dL Low 6.3 - 8.2 g/dL [place] Magnesiumon 03-31-2020 Magnesium [Mass/Vol] 2.1 mg/dL Normal 1.6-2.3 [facility] Comment on above: Performed By: #### R TCS, BMP3, LFT3, HEMOG, PHOS3, MG3 ####[facility] [id number] [place] [address] Magnesium [Mass/Vol] 2.1 mg/dL 1.6 - 2 .3 mg/dL [place], [place] Otheron 03-31-2020 Interpretation and review of laboratory results Abnormal [place] Test Performed by [facility], [facility] [place] [address] [place], [place] Phosphoruson 03-31-2020 Phosphate [Mass/Vol] 3.1 mg/dL Normal 2.5-4.5 [facility] Comment on above: Performed By: #### R TCS, BMP3, LFT3, HEMOG, PHOS3, MG3 ####[facility] [id number] [place] [address] Phosphate [Mass/Vol] 3.1 mg/dL 2.5 - 4 .5 mg/dL [place], [place] Retic Count(%)on 03-31-2020 Retic Count(%) 3.2 Normal [facility] Comment on above: Result Comment: Newb orn < 5%Adults 0.5 - 1.5% Performed By: #### R TCS, BMP3, LFT3, HEMOG, PHOS3, MG3 ####[facility] [id number] [place] [address] Reticulocyteson 03-31-2020 Sodium [Moles/Vol] 3.2 mmol/L [place], [place] Comment on above: Churdan < 5% Adults 0.5 - 1.5% Test Performed by [facility], [facility] [place] [address] [place] XR CHEST PORTABLEon 03-31-20 20 Pr[facility]/31/2020 6:41 AM EDT Patient Name: KAREN KEARNS ---Diagnostic Radiology--- Exam Date/Time 03/31/2020 06:37:32 EDT Exam CR Chest Portable Ordering Physician [id number] CARSON Accession Number [id number] CPT4 Codes 64808 () Reason For Exam Shortness of breath Report CLINICAL INFORMATION: CABG. Chest tubes. Portable view of the chest at 0620 hours is provided and compared to a previous study dated March 30, 2020. FINDINGS: An introducer sheath remains in place via the right internal jugular vein. 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 There are mild bibasilar infiltrates. Chest tubes are noted without pneumothorax. IMPRESSION: 1. Postoperative changes from CABG). 2. Bibasilar infiltrates. 3. Chest tubes without pneumothorax. Report Dictated on Workstation: [id number] --- Final --- Dictated: 03/31/2020 6:39 am Dictating Physician: MD SCHAFFER JEFFREY Signed Date and Time: 03/31/2020 6:40 am Signed by: MD SCHAFFER JEFFREY Transcribed Date and Time: 03/31/2020 6:39 [place], [place] Patient Name: KAREN KEARNS ---Diagnostic Radiology--- Exam Date/Time 03/31/2020 06:37:32 EDT Exam CR Chest Portable Ordering Physician ANGELY MELTON Accession Number [id number] CPT4 Codes 42779 () Reason For Exam Shortness of breath Report CLINICAL INFORMATION: CABG. Chest tubes. Portable view of the chest at 0620 hours is provided and compared to a previous study dated March 30, 2020. FINDINGS: An introducer sheath remains in place via the right internal jugular vein. 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 There are mild bibasilar infiltrates. Chest tubes are noted without pneumothorax. IMPRESSION: 1. Postoperative changes from CABG). 2. Bibasilar infiltrates. 3. Chest tubes without pneumothorax. Report Dictated on Workstation: [id number] --- Final --- Dictated: 03/31/2020 6:39 am Dictating Physician: MD SCHAFFER JEFFREY Signed Date and Time: 03/31/2020 6:40 am Signed by: MD SCHAFFER JEFFREY Transcribed Date and Time: 03/31/2020 6:39 [place] BILIRUBIN FRACTIONATED, ADUL Ton 03-30-2020 Bilirubin Ql (U) 12.6 mg/dL High 0.2 - 1.3 mg/dL [place] Bilirubin.direct [Mass/Vol] 7.5 mg/dL High 0 - 0.3 mg/dL [place] Basic Metabolic Panelon 03-15 Calcium [Mass/Vol] 8.2 mg/dL Low 8.4-10.4 [facility] Comment on above: Performed By: #### B MP3 ####[address] [place], [place] Anion Gap 8 Normal [facility] Comment on above: Performed By: #### B MP3 ####[address] [place] [place], [place] CO2 [Moles/Vol] 29 mmol/L Normal 22-30 [facility] Comment on above: Performed By: #### B MP3 ####[address] [place] [place], [place] Creatinine [Mass/Vol] 1.61 mg/dL High 0.52-1.25 [facility] Comment on above: Performed By: #### B MP3 ####[place] [address] [place], [place] GFR/1.73 sq M.predicted among blacks MDRD (S/P/Bld) [Vol rate/Area] 45.8 mL/min/{1.73_m2} Abnormal >60 [facility] Comment on above: Performed By: #### B MP3 ####[address] [place] [place], [place] GFR/1.73 sq M.predicted among non-blacks MDRD (S/P/Bld) [Vol rate/Area] 39.5 mL/min/{1.73_m2} Abnormal >60 [facility] Comment on above: Result Comment: KDIG O guidelines provide the following GFR categories:Stage GFR(ml/min/1.73 m2) TermsG1 >=90 Normal or highG2 60-89 Mildly decreased*G3a 45-59 Mildly to moderately sjtlnlelmT2e 30-44 Moderately to severely decreasedG4 15-29 Severely decreasedG5 <15 Kidney failure*Relative to young adult level.In the absence of evidence of kidney damage, neither GFRcategory G1 nor G2 fulfill the criteria for CKD.The CKD-EPI equation is validated in individuals 18 yearsof age and older. Currently the best equation forestimating glomerular filtration rate (GFR) from serumcreatinine in children is the Bedside Pelletier equation.It is less accurate in patients with extremes of musclemass, restriction of dietary protein, ingestion of creatine,extra-renal metabolism of creatinine, or treatment withmedications that affect renal tubular creatinine secretion. Performed By: #### B MP3 ####[address] [place], [place] Glucose [Mass/Vol] 120 mg/dL High 70-100 [facility] Comment on above: Performed By: #### B MP3 ####[address] [place], [place] Urea nitrogen [Mass/Vol] 46 mg/dL High 7-20 [facility] Comment on above: Performed By: #### B MP3 ####[address] [place], [place] Chloride [Moles/Vol] 98 mmol/L Normal 98-107 [facility] Comment on above: Performed By: #### B MP3 ####[address] [place], [place] Potassium [Moles/Vol] 4.1 mmol/L Normal 3.5-5.1 [facility] Comment on above: Performed By: #### B MP3 ####[address] [place], [place] Sodium [Moles/Vol] 135 mmol/L Normal 135-145 [facility] Comment on above: Performed By: #### B MP3 ####[address] [place] [address] Anion gap [Moles/Vol] 8 mmol/L [place], [place] Calcium [Mass/Vol] 8.2 mg/dL Low 8.4 - 10. 4 mg/dL [place], [place] Chloride [Moles/Vol] 98 mmol/L 98 - 10 7 mmol/L [place] CO2 [Moles/Vol] 29 mmol/L 22 - 30 mmol/L [place] Creatinine [Mass/Vol] 1.61 mg/dL High 0.52 - 1.25 mg/dL [place] EGFR IF NonAfrican [place]ian 39.5 mL/min Abnormal >60 [place] Comment on above: KDIGO guidelines pro vide the following GFR categories: Stage GFR(ml/min/1.73 m2) Terms G1 >=90 Normal or high G2 60-89 Mildly decreased* G3a 45-59 Mildly to moderately decreased G3b 30-44 Moderately to severely decreased G4 15-29 Severely decreased G5 <15 Kidney failure *Relative to young adult level. In the absence of evidence of kidney damage, neither GFR category G1 nor G2 fulfill the criteria for CKD. The CKD-EPI equation is validated in individuals 18 years of age and older. Currently the best equation for estimating glomerular filtration rate (GFR) from serum creatinine in children is the Bedside Pelletier equation. It is less accurate in patients with extremes of muscle mass, restriction of dietary protein, ingestion of creatine, extra-renal metabolism of creatinine, or treatment with medications that affect renal tubular creatinine secretion. GFR/1.73 sq M predicted among blacks MDRD (S/P/Bld) [Vol rate/Area] 45.8 mL/min/{1.73_m2} Abnormal >60 [place], [place] Glucose [Mass/Vol] 120 mg/dL High 70 - 100 mg/dL [place] Interpretation and review of laboratory results Abnormal [place] Potassium [Moles/Vol] 4.1 mmol/L 3.5 - 5.1 mmol/L [place], [place] Sodium [Moles/Vol] 135 mmol/L 135 - 145 mmol/L [place], [place] Urea nitrogen [Mass/Vol] 46 mg/dL High 7 - 20 mg/dL [facility], [place] Test Performed by [facility], [address] [facility] [place] [address] [facility], [place] Calcium [Mass/Vol] 8.2 mg/dL Low 8.4-10.4 [facility] Comment on above: Performed By: #### H EMOG, BMP3, LFT3 ####[facility] [place], [place] Glucose [Mass/Vol] 157 mg/dL High 70-100 [facility] Comment on above: Performed By: #### H EMOG, BMP3, LFT3 ####[address] [place], [place] Urea nitrogen [Mass/Vol] 46 mg/dL High 7-20 [facility] Comment on above: Performed By: #### H EMOG, BMP3, LFT3 ####[address] [place], [place] Anion Gap 8 Normal [facility] Comment on above: Performed By: #### H EMOG, BMP3, LFT3 ####[address] [place], [place] CO2 [Moles/Vol] 29 mmol/L Normal 22-30 [facility] Comment on above: Performed By: #### H EMOG, BMP3, LFT3 ####[address] [place], [place] Creatinine [Mass/Vol] 1.58 mg/dL High 0.52-1.25 [facility] Comment on above: Performed By: #### H EMOG, BMP3, LFT3 ####[address] [place], [place] GFR/1.73 sq M.predicted among blacks MDRD (S/P/Bld) [Vol rate/Area] 46.9 mL/min/{1.73_m2} Abnormal >60 [facility] Comment on above: Performed By: #### H EMOG, BMP3, LFT3 ####[address] [place], [place] GFR/1.73 sq M.predicted among non-blacks MDRD (S/P/Bld) [Vol rate/Area] 40.4 mL/min/{1.73_m2} Abnormal >60 [facility] Comment on above: Result Comment: KDIG O guidelines provide the following GFR categories:Stage GFR(ml/min/1.73 m2) TermsG1 >=90 Normal or highG2 60-89 Mildly decreased*G3a 45-59 Mildly to moderately adbjhlnxlT3s 30-44 Moderately to severely decreasedG4 15-29 Severely decreasedG5 <15 Kidney failure*Relative to young adult level.In the absence of evidence of kidney damage, neither GFRcategory G1 nor G2 fulfill the criteria for CKD.The CKD-EPI equation is validated in individuals 18 yearsof age and older. Currently the best equation forestimating glomerular filtration rate (GFR) from serumcreatinine in children is the Bedside Pelletier equation.It is less accurate in patients with extremes of musclemass, restriction of dietary protein, ingestion of creatine,extra-renal metabolism of creatinine, or treatment withmedications that affect renal tubular creatinine secretion. Performed By: #### H VIDAL BMP3, LFT3 ####[facility] [id number] [place], [place] Chloride [Moles/Vol] 95 mmol/L Low 98-107 [facility] Comment on above: Performed By: #### H VIDAL, BMP3, LFT3 ####[address] [place], [place] Potassium [Moles/Vol] 3.5 mmol/L Normal 3.5-5.1 [facility] Comment on above: Performed By: #### H VIDAL, BMP3, LFT3 ####[facility] [id number] [place], [place] Sodium [Moles/Vol] 132 mmol/L Low 135-145 [facility] Comment on above: Performed By: #### H VIDAL, BMP3, LFT3 ####[facility] [id number], [place] Anion gap [Moles/Vol] 8 mmol/L [facility], [place] Calcium [Mass/Vol] 8.2 mg/dL Low 8.4 - 10. 4 mg/dL [place], [place] Chloride [Moles/Vol] 95 mmol/L Low 98 - 10 7 mmol/L [place] CO2 [Moles/Vol] 29 mmol/L 22 - 30 mmol/L [place] Creatinine [Mass/Vol] 1.58 mg/dL High 0.52 - 1.25 mg/dL [place] EGFR IF NonAfrican Albanian 40.4 mL/min Abnormal >60 [place] Comment on above: KDIGO guidelines pro vide the following GFR categories: Stage GFR(ml/min/1.73 m2) Terms G1 >=90 Normal or high G2 60-89 Mildly decreased* G3a 45-59 Mildly to moderately decreased G3b 30-44 Moderately to severely decreased G4 15-29 Severely decreased G5 <15 Kidney failure *Relative to young adult level. In the absence of evidence of kidney damage, neither GFR category G1 nor G2 fulfill the criteria for CKD. The CKD-EPI equation is validated in individuals 18 years of age and older. Currently the best equation for estimating glomerular filtration rate (GFR) from serum creatinine in children is the Bedside Pelletier equation. It is less accurate in patients with extremes of muscle mass, restriction of dietary protein, ingestion of creatine, extra-renal metabolism of creatinine, or treatment with medications that affect renal tubular creatinine secretion. GFR/1.73 sq M predicted among blacks MDRD (S/P/Bld) [Vol rate/Area] 46.9 mL/min/{1.73_m2} Abnormal >60 [place] Glucose [Mass/Vol] 157 mg/dL High 70 - 100 mg/dL [place] Potassium [Moles/Vol] 3.5 mmol/L 3.5 - 5.1 mmol/L [place] Sodium [Moles/Vol] 132 mmol/L Low 135 - 145 mmol/L [place] Urea nitrogen [Mass/Vol] 46 mg/dL High 7 - 20 mg/dL [place] Bilirubin, Fractionatedon Bilirubin [Mass/Vol] 12.6 mg/dL High 0.2-1.3 [facility] Comment on above: Performed By: #### B [facility] ####[facility] [place] [address] Bilirubin.indirect [Mass/Vol] 7.5 mg/dL High 0.0-0.3 [facility] Comment on above: Performed By: #### B ILF3 ####[facility] [place] [address] CBCon 03-30-2020 Erythrocyte distribution width (RBC) [Ratio] 15.3 % High 11.5 - 14.5 % [place] Hematocrit (Bld) [Volume fraction] 28.0 % Low 40 - 52 % [place] Hemoglobin (Bld) [Mass/Vol] 9.7 g/dL Low 13 - 18 g/dL [place] Interpretation and review of laboratory results Abnormal [place] MCH (RBC) [Entitic mass] 30.6 pg 26 - 34 pg [place] MCHC (RBC) [Mass/Vol] 34.7 % 32 - 36 % [place] MCV (RBC) [Entitic vol] 88.1 fL 80 - 98 fL [place] Platelet mean volume (Bld) [Entitic vol] 9.7 fL 7.4 - 10.4 fL [place] Platelets (Bld) [#/Vol] 66 10*3/uL Low 140 - 440 10*3/uL [place] RBC (Bld) [#/Vol] 3.18 10*6/uL Low 4.4 - 5.9 10*6/uL [place] WBC (Bld) [#/Vol] 7.1 10*3/uL 3.6 - 10.7 10*3/uL [place] Test Performed by [facility], [address] [place] [address] [place], [place] CBC Auto Differentialon 03-15 Absolute Baso # 0.0 10*3/uL 0 - 0.2 10*3/uL [place] Absolute Neut # 6.5 10*3/uL 1.8 - 7 10*3/uL [place] Basophils/100 WBC (Bld) 0.2 % 0 - 2 % [place] Eosinophils (Bld) [#/Vol] 0.1 10*3/uL 0 - 0.5 10*3/uL [place] Eosinophils/100 WBC (Bld) 0.7 % Low 1 - 6 % [place] Erythrocyte distribution width (RBC) [Ratio] 15.4 % High 11.5 - 14.5 % [place] Granulocytes/100 WBC (Bld) 75.0 % 40 - 80 % [place] Hematocrit (Bld) [Volume fraction] 27.7 % Low 40 - 52 % [place] Hemoglobin (Bld) [Mass/Vol] 9.7 g/dL Low 13 - 18 g/dL [place] Interpretation and review of laboratory results Abnormal [place] Lymphocytes (Bld) [#/Vol] 1.0 10*3/uL 1 - 4.3 10*3/uL [place] Lymphocytes/100 WBC (Bld) 11.1 % Low 20 - 40 % [place] MCH (RBC) [Entitic mass] 30.9 pg 26 - 34 pg [place] MCHC (RBC) [Mass/Vol] 35.1 % 32 - 36 % [place] MCV (RBC) [Entitic vol] 88.1 fL 80 - 98 fL [place] Monocytes (Bld) [#/Vol] 1.1 10*3/uL High 0 - 0.8 10*3/uL [place] Monocytes/100 WBC (Bld) 13.0 % High 2 - 10 % [place] Platelet mean volume (Bld) [Entitic vol] 9.9 fL 7.4 - 10.4 fL [place] Platelets (Bld) [#/Vol] 84 10*3/uL Low 140 - 440 10*3/uL [place] RBC (Bld) [#/Vol] 3.15 10*6/uL Low 4.4 - 5.9 10*6/uL [place] WBC (Bld) [#/Vol] 8.7 10*3/uL 3.6 - 10.7 10*3/uL [place] Test Performed by [facility], [address] [place] [address] [place], [place] CR Chest Portableon 03-30-20 20 CR Chest Portable Normal [facility] CREATININE, RANDOM URINEon Creatinine (U) [Mass/Vol] 25.2 mg/dL No Range [place], [place] Creatinine, Ur Randomon 03-15 Creatinine, Ur Random 25.2 mg/dL Normal No Range [facility] Comment on above: Performed By: #### U MARION ESCOBAR, MONIKA ####[facility] [place] [address] EKG 12 Leadon 03-30-2020 Prabhu, 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: TB : 1940 Requested By: ESTELA ARMENDARIZ Order Number: [id number] Reading MD: Stephan Schreiber Measurements Intervals [place] Rate: 113 P: VT: QRS: 67 QRSD: 95 T: -28 QT: 343 QTc: 471 Interpretive Statements ATRIAL FIBRILLATION WITH RAPID VENTRICULAR RESPONSE Low voltage, extremity leads Electronically Signed On 03-30-2020 18:51:54 EDT [facility] Test Date: 2020-03-29 Pat Name: Karen Kearns Department: 1[facility] Room: [facility] Gender: M Assistant Manager Quality Management: TB : 1940 Requested By: ESTELA ARMENDARIZ Order Number: [id number] Reading MD: Stephan Schreiber Measurements Intervals [place] Rate: 113 P: VT: QRS: 67 QRSD: 95 T: -28 QT: 343 QTc: 471 Interpretive Statements ATRIAL FIBRILLATION WITH RAPID VENTRICULAR RESPONSE Low voltage, extremity leads Electronically Signed On 03-30-2020 18:51:54 EDT by Stephan Schreiber [facility], [place] GAMMA GTon 03-30-2020 Gamma glutamyl transferase [Catalytic activity/Vol] 99 U/L High 12 - 58 U/L [facility], [place] GGTon 03-30-2020 Gamma glutamyl transferase [Catalytic activity/Vol] 99 U/L High 12-58 [facility] Comment on above: Performed By: #### H EMDF, LAURIE, GGT3 ####[facility] [id number] [place] [address] Glucose,Bedsideon 03-30-2020 Glucose [Mass/Vol] 125 mg/dL High 70-100 [facility] Comment on above: Result Comment: Test performed by glucose meter. Results may be 10%-15% lowerthan serum/plasma values. (CLIA ID [id number]) Performed By: #### B GLU ####[facility] [address] [place], [place] Glucose [Mass/Vol] 148 mg/dL High 70-100 [facility] Comment on above: Result Comment: Test performed by glucose meter. Results may be 10%-15% lowerthan serum/plasma values. (CLIA ID [id number]) Performed By: #### B GLU ####[facility] [id number] [place], [place] Glucose [Mass/Vol] 146 mg/dL High 70-100 [facility] Comment on above: Result Comment: Test performed by glucose meter. Results may be 10%-15% lowerthan serum/plasma values. (CLIA ID [id number]) Performed By: #### B GLU ####[facility] [address] [place], [place] Hemogramon 03-30-2020 Erythrocyte distribution width (RBC) [Ratio] 15.3 % High 11.5-14.5 [facility] Comment on above: Performed By: #### H EMOG, BMP3, LFT3 ####[facility] [address] [place] [address] Hematocrit (Bld) [Volume fraction] 28.0 % Low 40.0-52.0 [facility] Comment on above: Performed By: #### H EMOG, BMP3, LFT3 ####[address] Hemoglobin (Bld) [Mass/Vol] 9.7 g/dL Low 13.0-18.0 [facility] Comment on above: Performed By: #### H EMOG, BMP3, LFT3 ####[address] MCH (RBC) [Entitic mass] 30.6 pg Normal 26.0-34.0 [facility] Comment on above: Performed By: #### H EMOG, BMP3, LFT3 ####[address] MCHC 34.7 % Normal 32.0-36.0 [facility] Comment on above: Performed By: #### H EMOG, BMP3, LFT3 ####[address] MCV (RBC) [Entitic vol] 88.1 fL Normal 80.0-98.0 [facility] Comment on above: Performed By: #### H EMOG, BMP3, LFT3 ####[address] Platelet mean volume (Bld) [Entitic vol] 9.7 fL Normal 7.4-10.4 [facility] Comment on above: Performed By: #### H EMOG, BMP3, LFT3 ####[address] Platelets (Bld) [#/Vol] 66 10*3/uL Low 140-440 [facility] Comment on above: Performed By: #### H EMOG, BMP3, LFT3 ####[address] RBC (Bld) [#/Vol] 3.18 10*6/uL Low 4.40-5.90 [facility] Comment on above: Performed By: #### H EMOG, BMP3, LFT3 ####[address] WBC (Bld) [#/Vol] 7.1 10*3/uL Normal 3.6-10.7 [facility] Comment on above: Performed By: #### H EMOG, BMP3, LFT3 ####[address] Hemogram w/ Autodiffon 03-30 Abs Baso Cnt 0.0 10*3/uL Normal 0.0-0.2 [facility] Comment on above: Performed By: #### H EMDF, LAURIE, GGT3 ####[address] Abs Neutrophile Cnt 6.5 10*3/uL Normal 1.8-7.0 [facility] Comment on above: Performed By: #### H EMDF, LAURIE, GGT3 ####[address] Basophils/100 WBC (Bld) 0.2 % Normal 0.0-2.0 [facility] Comment on above: Performed By: #### H EMDF, LAURIE, GGT3 ####[address] Eosinophils (Bld) [#/Vol] 0.1 10*3/uL Normal 0.0-0.5 [facility] Comment on above: Performed By: #### H EMDF, LAURIE, GGT3 ####[address] Eosinophils/100 WBC (Bld) 0.7 % Low 1.0-6.0 [facility] Comment on above: Performed By: #### H EMDF, LAURIE, GGT3 ####[address] Erythrocyte distribution width (RBC) [Ratio] 15.4 % High 11.5-14.5 [facility] Comment on above: Performed By: #### H EMDF, LAURIE, GGT3 ####[address] Granulocytes/100 WBC (Bld) 75.0 % Normal 40.0-80.0 [facility] Comment on above: Performed By: #### H EMDF, LAURIE, GGT3 ####[address] Hematocrit (Bld) [Volume fraction] 27.7 % Low 40.0-52.0 [facility] Comment on above: Performed By: #### H EMDF, LAURIE, GGT3 ####[address] Hemoglobin (Bld) [Mass/Vol] 9.7 g/dL Low 13.0-18.0 [facility] Comment on above: Performed By: #### H EMDF, LAURIE, GGT3 ####[address] Lymphocytes (Bld) [#/Vol] 1.0 10*3/uL Normal 1.0-4.3 [facility] Comment on above: Performed By: #### H EMDF, LAURIE, GGT3 ####[address] Lymphocytes/100 WBC (Bld) 11.1 % Low 20.0-40.0 [facility] Comment on above: Performed By: #### H EMDF, LAURIE, GGT3 ####[address] MCH (RBC) [Entitic mass] 30.9 pg Normal 26.0-34.0 [facility] Comment on above: Performed By: #### H EMDF, LAURIE, GGT3 ####[address] MCHC 35.1 % Normal 32.0-36.0 [facility] Comment on above: Performed By: #### H EMDF, LAURIE, GGT3 ####[address] MCV (RBC) [Entitic vol] 88.1 fL Normal 80.0-98.0 [facility] Comment on above: Performed By: #### H EMDF, LAURIE, GGT3 ####[address] Monocytes (Bld) [#/Vol] 1.1 10*3/uL High 0.0-0.8 [facility] Comment on above: Performed By: #### H EMDF, LAURIE, GGT3 ####[address] Monocytes/100 WBC (Bld) 13.0 % High 2.0-10.0 [facility] Comment on above: Performed By: #### H EMDF, LAURIE, GGT3 ####[address] Platelet mean volume (Bld) [Entitic vol] 9.9 fL Normal 7.4-10.4 [facility] Comment on above: Performed By: #### H EMDF, LAURIE, GGT3 ####[address] Platelets (Bld) [#/Vol] 84 10*3/uL Low 140-440 [facility] Comment on above: Performed By: #### H EMDF, LAURIE, GGT3 ####[address] RBC (Bld) [#/Vol] 3.15 10*6/uL Low 4.40-5.90 [facility] Comment on above: Performed By: #### H EMDF, LAURIE, GGT3 ####[address] WBC (Bld) [#/Vol] 8.7 10*3/uL Normal 3.6-10.7 [facility] Comment on above: Performed By: #### H EMDF, LAURIE, GGT3 ####[address] Hepatic Functionon 03-30-202 0 ALP [Catalytic activity/Vol] 56 U/L Normal 38-126 [facility] Comment on above: Performed By: #### H EMOG, BMP3, LFT3 ####[address] [place], [place] ALT [Catalytic activity/Vol] 17 U/L Normal 0-49 [facility] Comment on above: Result Comment: The ALT test is performed by an updated assay method.Please note that the reference intervals have beenchanged and are now sex specific. Performed By: #### H EMOG, BMP3, LFT3 ####[address] [place], [place] AST [Catalytic activity/Vol] 43 U/L Normal 15-46 [facility] Comment on above: Performed By: #### H EMOG, BMP3, LFT3 ####[address] Bilirubin [Mass/Vol] 12.9 mg/dL High 0.2-1.3 [facility] Comment on above: Performed By: #### H EMOG, BMP3, LFT3 ####[address] Bilirubin.indirect [Mass/Vol] 7.8 mg/dL High 0.0-0.3 [facility] Comment on above: Performed By: #### H EMOG, BMP3, LFT3 ####[address] Protein [Mass/Vol] 5.8 g/dL Low 6.3-8.2 [facility] Comment on above: Performed By: #### H EMOG, BMP3, LFT3 ####[address] Albumin [Mass/Vol] 3.3 g/dL Low 3.5-5.0 [facility] Comment on above: Performed By: #### H EMOG, BMP3, LFT3 ####[address] Hepatic Function Panelon Albumin [Mass/Vol] 3.3 g/dL Low 3.5 - 5 g/dL [facility], [place] ALP [Catalytic activity/Vol] 56 U/L 38 - 126 U/L [place], [place] ALT [Catalytic activity/Vol] 17 U/L 0 - 49 U/L [place], [place] Comment on above: The ALT test is perf ormed by an updated assay method. Please note that the reference intervals have been changed and are now sex specific. AST [Catalytic activity/Vol] 43 U/L 15 - 46 U/L [place], [place] Bilirubin Ql (U) 12.9 mg/dL High 0.2 - 1.3 mg/dL [place], [place] Bilirubin.direct [Mass/Vol] 7.8 mg/dL High 0 - 0.3 mg/dL [place], [place] Protein [Mass/Vol] 5.8 g/dL Low 6.3 - 8.2 g/dL [place], [place] Otheron 03-30-2020 Interpretation and review of laboratory results Abnormal [place], [place] Test Performed by [facility], [address] [place] [address] Test Performed by [facility], [address] [place] [id number] [place] [address] Interpretation and review of laboratory results Abnormal [place], [place] Test Performed by [facility], [address] [place] [id number] [place] [address] PERIPHERAL BLOOD SMEAR, PATH REVIEWon 03-30-2020 Sodium [Moles/Vol] see below [place], [place] Comment on above: See report under Je gical Pathology. Test Performed by [facility], [address] [place] [id number] [place] [address] PERIPHERAL SMEARon 0 PERIPHERAL SMEAR see below Normal [facility] Comment on above: Result Comment: See report under Surgical Pathology. Performed By: #### H EMDF, LAURIE, GGT3 ####[facility] [place] [address] POCT Glucoseon 03-30-2020 Glucose [Mass/Vol] 125 mg/dL High 70 - 100 mg/dL [place], [place] Comment on above: Test performed by ucose meter. Results may be 10%-15% lower than serum/plasma values. (CLIA ID [id number]) Interpretation and review of laboratory results Abnormal [facility] [place], [place] Test Performed by [facility], [facility] [place] [address] [facility], [place] Glucose [Mass/Vol] 148 mg/dL High 70 - 100 mg/dL [place], [place] Comment on above: Test performed by gl ucose meter. Results may be 10%-15% lower than serum/plasma values. (CLIA ID [id number]) Interpretation and review of laboratory results Abnormal [facility] [place], [place] Test Performed by [facility], [address] [place] [address] [facility], [place] Glucose [Mass/Vol] 146 mg/dL High 70 - 100 mg/dL [place], [place] Comment on above: Test performed by gl ucose meter. Results may be 10%-15% lower than serum/plasma values. (CLIA ID [id number]) Interpretation and review of laboratory results Abnormal [facility] [employer] [place], [place] Test Performed by [facility], [facility] [place] [address] [place], [place] Sodium, Ur Randomon 03-30-20 20 Sodium [Moles/Vol] 116 mmol/L High 30-90 [facility] Comment on above: Performed By: #### U MARION ESCOBAR, NAURR ####[address] [place] [address] Sodium, Urine, Randomon 03-15 Interpretation and review of laboratory results Abnormal [place], [place] Sodium (U) [Moles/Vol] 116 mmol/L High 30 - 90 mmol/L [place], [place] Surgical Pathologyon 020 Surgical Pathology Normal [facility] UREA NITROGEN, URINEon 03-30 Urea Nitrogen, Random Urine 282 mg/dL No Range [place], [place] Urea Nitrogen,Ur Randomon Urea nitrogen [Mass/Vol] 282 mg/dL Normal No Range [facility] Comment on above: Performed By: #### U KULWINDERRMARION, NAURR ####[facility] [address] [place] [address] XR CHEST PORTABLEon 03-30-20 Patient Name: KAREN KEARNS ---Diagnostic Radiology--- Exam Date/Time 03/30/2020 05:43:31 EDT Exam CR Chest Portable Ordering Physician [id number] ACANGELY Accession Number [id number] CPT4 Codes 44550 () Reason For Exam Shortness of breath Report CLINICAL INFORMATION: Respiratory distress. Portable view of the chest at 0505 hours is provided and compared to a previous study dated March 29, 2020. FINDINGS: An introducer sheath remains in place via the right internal jugular vein. The Blair-Dhaval catheter has been withdrawn. 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 The cardiac silhouette and mediastinum are otherwise unremarkable. Bibasilar infiltrates are unchanged. Chest tubes are noted without pneumothorax. IMPRESSION: 1. Postoperative changes (CABG). 2. Basilar infiltrates. 3. Chest tubes without pneumothorax. Report Dictated on Workstation: [facility] --- Final --- Dictated: 03/30/2020 5:46 am Dictating Physician: MD SCHAFFER JEFFREY Signed Date and Time: 03/30/2020 5:47 am Signed by: MD SCHAFFER JEFFREY Transcribed Date and Time: 03/30/2020 5:46 [facility], [place] Prabhu, [facility] Incoming Radiology Results From [facility] - 03/30/2020 5:48 AM EDT Patient Name: KAREN KEARNS ---Diagnostic Radiology--- Exam Date/Time 03/30/2020 05:43:31 EDT Exam CR Chest Portable Ordering Physician [id number] ANGELY AC Accession Number [id number] CPT4 Codes 59899 () Reason For Exam Shortness of breath Report CLINICAL INFORMATION: Respiratory distress. Portable view of the chest at 0505 hours is provided and compared to a previous study dated March 29, 2020. FINDINGS: An introducer sheath remains in place via the right internal jugular vein. The Blair-Dhaval catheter has been withdrawn. 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 The cardiac silhouette and mediastinum are otherwise unremarkable. Bibasilar infiltrates are unchanged. Chest tubes are noted without pneumothorax. IMPRESSION: 1. Postoperative changes (CABG). 2. Basilar infiltrates. 3. Chest tubes without pneumothorax. Report Dictated on Workstation: [facility] --- Final --- Dictated: 03/30/2020 5:46 am Dictating Physician: MD SCHAFFER JEFFREY Signed Date and Time: 03/30/2020 5:47 am Signed by: MD SCHAFFER JEFFREY Transcribed Date and Time: 03/30/2020 5:46 [facility], [place] Arterial Blood Gaseson 03-29 CO2 [Moles/Vol] 26.3 mmol/L Normal 23.0-27.0 [facility] Comment on above: Performed By: #### B MP3, LFT3, FIBGN, PT/AP, LACT3, ABG, HEMDF, MG3, ICA ####[address] [place], [place] HCO3 (Bld) [Moles/Vol] 25.1 mmol/L High 21.0-25.0 [facility] Comment on above: Performed By: #### B MP3, LFT3, FIBGN, PT/AP, LACT3, ABG, HEMDF, MG3, ICA ####[facility] [address] [place], [place] Hemoglobin (Bld) [Mass/Vol] 9.9 g/dL Normal ScreenOnly [facility] Comment on above: Performed By: #### B MP3, LFT3, FIBGN, PT/AP, LACT3, ABG, HEMDF, MG3, ICA ####[facility] [id number] [place], [place] Oxygen (Bld) [Partial pressure] 64.3 mm[Hg] Low 80.0-100.0 [facility] Comment on above: Performed By: #### B MP3, LFT3, FIBGN, PT/AP, LACT3, ABG, HEMDF, MG3, ICA ####[address] [place], [place] Oxygen saturation in Blood 92.7 % Low 95.0-100.0 [facility] Comment on above: Performed By: #### B MP3, LFT3, FIBGN, PT/AP, LACT3, ABG, HEMDF, MG3, ICA ####[address] [place], [place] pCO2 37.6 mm[Hg] Normal 35.0-45.0 [facility] Comment on above: Performed By: #### B MP3, LFT3, FIBGN, PT/AP, LACT3, ABG, HEMDF, MG3, ICA ####[address] [place], [place] pH 7.443 Normal 7.350-7.450 [facility] Comment on above: Performed By: #### B MP3, LFT3, FIBGN, PT/AP, LACT3, ABG, HEMDF, MG3, ICA ####[address] Std Base Excess 1.1 mmol/L Normal -3.0-3.0 [facility] Comment on above: Performed By: #### B MP3, LFT3, FIBGN, PT/AP, LACT3, ABG, HEMDF, MG3, ICA ####[address] [place], [place] FIO2 No data Normal [facility] Comment on above: Performed By: #### B MP3, LFT3, FIBGN, PT/AP, LACT3, ABG, HEMDF, MG3, ICA ####[address] [place], [place] Basic Metabolic Panelon 10-1 Anion Gap 9 Normal [facility] Comment on above: Performed By: #### B MP3, LFT3, FIBGN, PT/AP, LACT3, ABG, HEMDF, MG3, ICA ####[address] [place], [place] Calcium [Mass/Vol] 8.5 mg/dL Normal 8.4-10.4 [facility] Comment on above: Performed By: #### B MP3, LFT3, FIBGN, PT/AP, LACT3, ABG, HEMDF, MG3, ICA ####[address] [place], [place] CO2 [Moles/Vol] 25 mmol/L Normal 22-30 [facility] Comment on above: Performed By: #### B MP3, LFT3, FIBGN, PT/AP, LACT3, ABG, HEMDF, MG3, ICA ####[address] [place], [place] Glucose [Mass/Vol] 129 mg/dL High 70-100 [facility] Comment on above: Performed By: #### B MP3, LFT3, FIBGN, PT/AP, LACT3, ABG, HEMDF, MG3, ICA ####[address] [place], [place] Urea nitrogen [Mass/Vol] 39 mg/dL High 7-20 [facility] Comment on above: Performed By: #### B MP3, LFT3, FIBGN, PT/AP, LACT3, ABG, HEMDF, MG3, ICA ####[address] [place], [place] Creatinine [Mass/Vol] 1.37 mg/dL High 0.52-1.25 [facility] Comment on above: Performed By: #### B MP3, LFT3, FIBGN, PT/AP, LACT3, ABG, HEMDF, MG3, ICA ####[address] [place], [place] GFR/1.73 sq M.predicted among blacks MDRD (S/P/Bld) [Vol rate/Area] 55.7 mL/min/{1.73_m2} Abnormal >60 [facility] Comment on above: Performed By: #### B MP3, LFT3, FIBGN, PT/AP, LACT3, ABG, HEMDF, MG3, ICA ####[address] [place], [place] GFR/1.73 sq M.predicted among non-blacks MDRD (S/P/Bld) [Vol rate/Area] 48.1 mL/min/{1.73_m2} Abnormal >60 [facility] Comment on above: Result Comment: KDIG O guidelines provide the following GFR categories:Stage GFR(ml/min/1.73 m2) TermsG1 >=90 Normal or highG2 60-89 Mildly decreased*G3a 45-59 Mildly to moderately [id number] 30-44 Moderately to severely decreasedG4 15-29 Severely decreasedG5 <15 Kidney failure*Relative to young adult level.In the absence of evidence of kidney damage, neither GFRcategory G1 nor G2 fulfill the criteria for CKD.The CKD-EPI equation is validated in individuals 18 yearsof age and older. Currently the best equation forestimating glomerular filtration rate (GFR) from serumcreatinine in children is the Bedside Pelletier equation.It is less accurate in patients with extremes of musclemass, restriction of dietary protein, ingestion of creatine,extra-renal metabolism of creatinine, or treatment withmedications that affect renal tubular creatinine secretion. Performed By: #### B MP3, LFT3, FIBGN, PT/AP, LACT3, ABG, HEMDF, MG3, ICA ####[address] [place], [place] Potassium [Moles/Vol] 4.2 mmol/L Normal 3.5-5.1 [facility] Comment on above: Performed By: #### B MP3, LFT3, FIBGN, PT/AP, LACT3, ABG, HEMDF, MG3, ICA ####[address] [place], [place] Sodium [Moles/Vol] 137 mmol/L Normal 135-145 [facility] Comment on above: Performed By: #### B MP3, LFT3, FIBGN, PT/AP, LACT3, ABG, HEMDF, MG3, ICA ####[address] [place], [place] Chloride [Moles/Vol] 103 mmol/L Normal 98-107 [facility] Comment on above: Performed By: #### B MP3, LFT3, FIBGN, PT/AP, LACT3, ABG, HEMDF, MG3, ICA ####[address] [place] [address] Anion gap [Moles/Vol] 9 mmol/L [place], [place] Calcium [Mass/Vol] 8.5 mg/dL 8.4 - 10. 4 mg/dL [place], [place] Chloride [Moles/Vol] 103 mmol/L 98 - 10 7 mmol/L [place], [place] CO2 [Moles/Vol] 25 mmol/L 22 - 30 mmol/L [place] Creatinine [Mass/Vol] 1.37 mg/dL High 0.52 - 1.25 mg/dL [place], [place] EGFR IF NonAfrican [place]ian 48.1 mL/min Abnormal >60 [place], [place] Comment on above: KDIGO guidelines pro vide the following GFR categories: Stage GFR(ml/min/1.73 m2) Terms G1 >=90 Normal or high G2 60-89 Mildly decreased* G3a 45-59 Mildly to moderately decreased G3b 30-44 Moderately to severely decreased G4 15-29 Severely decreased G5 <15 Kidney failure *Relative to young adult level. In the absence of evidence of kidney damage, neither GFR category G1 nor G2 fulfill the criteria for CKD. The CKD-EPI equation is validated in individuals 18 years of age and older. Currently the best equation for estimating glomerular filtration rate (GFR) from serum creatinine in children is the Bedside Pelletier equation. It is less accurate in patients with extremes of muscle mass, restriction of dietary protein, ingestion of creatine, extra-renal metabolism of creatinine, or treatment with medications that affect renal tubular creatinine secretion. GFR/1.73 sq M predicted among blacks MDRD (S/P/Bld) [Vol rate/Area] 55.7 mL/min/{1.73_m2} Abnormal >60 [place], [place] Glucose [Mass/Vol] 129 mg/dL High 70 - 100 mg/dL [place] Potassium [Moles/Vol] 4.2 mmol/L 3.5 - 5.1 mmol/L [place], [place] Sodium [Moles/Vol] 137 mmol/L 135 - 145 mmol/L [place], [place] Urea nitrogen [Mass/Vol] 39 mg/dL High 7 - 20 mg/dL [facility] [place], [place] Calcium [Mass/Vol] 8.4 mg/dL Normal 8.4-10.4 [facility] Comment on above: Performed By: #### P T/AP, LACT3, HEMDF, LFT3, FIBGN, ABG, BMP3, ICA ####[address] [place], [place] Glucose [Mass/Vol] 124 mg/dL High 70-100 [facility] Comment on above: Performed By: #### P T/AP, LACT3, HEMDF, LFT3, FIBGN, ABG, BMP3, ICA ####[address] [place], [place] Urea nitrogen [Mass/Vol] 37 mg/dL High 7-20 [facility] Comment on above: Performed By: #### P T/AP, LACT3, HEMDF, LFT3, FIBGN, ABG, BMP3, ICA ####[address] [place], [place] Anion Gap 9 Normal [facility] Comment on above: Performed By: #### P T/AP, LACT3, HEMDF, LFT3, FIBGN, ABG, BMP3, ICA ####[address] [place], [place] CO2 [Moles/Vol] 23 mmol/L Normal 22-30 [facility] Comment on above: Performed By: #### P T/AP, LACT3, HEMDF, LFT3, FIBGN, ABG, BMP3, ICA ####[address] [place], [place] Creatinine [Mass/Vol] 1.30 mg/dL High 0.52-1.25 [facility] Comment on above: Performed By: #### P T/AP, LACT3, HEMDF, LFT3, FIBGN, ABG, BMP3, ICA ####[address] [place], [place] GFR/1.73 sq M.predicted among blacks MDRD (S/P/Bld) [Vol rate/Area] 59.3 mL/min/{1.73_m2} Abnormal >60 [facility] Comment on above: Performed By: #### P T/AP, LACT3, HEMDF, LFT3, FIBGN, ABG, BMP3, ICA ####[address] [place], [place] GFR/1.73 sq M.predicted among non-blacks MDRD (S/P/Bld) [Vol rate/Area] 51.2 mL/min/{1.73_m2} Abnormal >60 [facility] Comment on above: Result Comment: KDIG O guidelines provide the following GFR categories:Stage GFR(ml/min/1.73 m2) TermsG1 >=90 Normal or highG2 60-89 Mildly decreased*G3a 45-59 Mildly to moderately [id number] 30-44 Moderately to severely decreasedG4 15-29 Severely decreasedG5 <15 Kidney failure*Relative to young adult level.In the absence of evidence of kidney damage, neither GFRcategory G1 nor G2 fulfill the criteria for CKD.The CKD-EPI equation is validated in individuals 18 yearsof age and older. Currently the best equation forestimating glomerular filtration rate (GFR) from serumcreatinine in children is the Bedside Pelletier equation.It is less accurate in patients with extremes of musclemass, restriction of dietary protein, ingestion of creatine,extra-renal metabolism of creatinine, or treatment withmedications that affect renal tubular creatinine secretion. Performed By: #### P T/AP, LACT3, HEMDF, LFT3, FIBGN, ABG, BMP3, ICA ####[address] [place], [place] Potassium [Moles/Vol] 4.7 mmol/L Normal 3.5-5.1 [facility] Comment on above: Performed By: #### P T/AP, LACT3, HEMDF, LFT3, FIBGN, ABG, BMP3, ICA ####[address] [place], [place] Sodium [Moles/Vol] 136 mmol/L Normal 135-145 [facility] Comment on above: Performed By: #### P T/AP, LACT3, HEMDF, LFT3, FIBGN, ABG, BMP3, ICA ####[address] [place] [address] Chloride [Moles/Vol] 104 mmol/L Normal 98-107 [facility] Comment on above: Performed By: #### P T/AP, LACT3, HEMDF, LFT3, FIBGN, ABG, BMP3, ICA ####[address] [place] [address] Blood Gas, Arterialon 2019 Base Excess, Arterial 1.1 mmol/L -3 - 3 mmol/L [place], [place] HCO3, Arterial 25.1 mmol/L High 21 - 25 mmol/L [place] Hemoglobin (Bld) [Mass/Vol] 9.9 g/dL ScreenOnly [place], [place] Oxygen saturation in Blood 92.7 % Low 95 - 100 % [place] pCO2, Arterial 37.6 mm[Hg] 35 - 45 mm[Hg] [place] pH, Arterial 7.443 [place] pO2, Arterial 64.3 mm[Hg] Low 80 - 100 mm[Hg] [place] Sodium [Moles/Vol] No data [place] TCO2, Arterial 26.3 mmol/L 23 - 27 mmol/L [place] CBC Auto Differentialon 03-15 Absolute Baso # 0.0 10*3/uL 0 - 0.2 10*3/uL [place] Absolute Neut # 6.6 10*3/uL 1.8 - 7 10*3/uL [place] Basophils/100 WBC (Bld) 0.2 % 0 - 2 % [place] Eosinophils (Bld) [#/Vol] 0.1 10*3/uL 0 - 0.5 10*3/uL [place] Eosinophils/100 WBC (Bld) 0.9 % Low 1 - 6 % [place] Erythrocyte distribution width (RBC) [Ratio] 15.3 % High 11.5 - 14.5 % [place] Granulocytes/100 WBC (Bld) 72.0 % 40 - 80 % [place] Hematocrit (Bld) [Volume fraction] 27.4 % Low 40 - 52 % [place] Hemoglobin (Bld) [Mass/Vol] 9.6 g/dL Low 13 - 18 g/dL [place] Interpretation and review of laboratory results Abnormal [place] Lymphocytes (Bld) [#/Vol] 1.6 10*3/uL 1 - 4.3 10*3/uL [place] Lymphocytes/100 WBC (Bld) 17.4 % Low 20 - 40 % [place] MCH (RBC) [Entitic mass] 30.7 pg 26 - 34 pg [place] MCHC (RBC) [Mass/Vol] 35.1 % 32 - 36 % [place] MCV (RBC) [Entitic vol] 87.5 fL 80 - 98 fL [place] Monocytes (Bld) [#/Vol] 0.9 10*3/uL High 0 - 0.8 10*3/uL [place] Monocytes/100 WBC (Bld) 9.5 % 2 - 10 % [place] Platelet mean volume (Bld) [Entitic vol] 9.5 fL 7.4 - 10.4 fL [place] Platelets (Bld) [#/Vol] 54 10*3/uL Low 140 - 440 10*3/uL [place] RBC (Bld) [#/Vol] 3.13 10*6/uL Low 4.4 - 5.9 10*6/uL [place] WBC (Bld) [#/Vol] 9.1 10*3/uL 3.6 - 10.7 10*3/uL [place] Test Performed by [facility], [address] [place] [id number] [place], [place] CR Chest 1 View Frontalon CR Chest 1 View Frontal Normal [facility] Calcium, Ionizedon 0 Ionized Ca 4.20 mg/dL Low 4.3 - 5.2 mg/dL [place], [place] pH (Bld) 7.48 [pH] High [facility], [place] Calcium,Ionizedon 03-29-2020 Ionized Ca,Measured 4.20 mg/dL Low 4.30-5.20 [facility] Comment on above: Performed By: #### B MP3, LFT3, FIBGN, PT/AP, LACT3, ABG, HEMDF, MG3, ICA ####[address] [place], [place] pH, Ionized Calcium 7.48 High 7.31-7.46 [facility] Comment on above: Performed By: #### B MP3, LFT3, FIBGN, PT/AP, LACT3, ABG, HEMDF, MG3, ICA ####[address] [place], [place] Fibrinogenon 03-29-2020 Fibrinogen 423 mg/dL High 200-400 [facility] Comment on above: Performed By: #### B MP3, LFT3, FIBGN, PT/AP, LACT3, ABG, HEMDF, MG3, ICA ####[facility] [address] [place], [place] Fibrinogen 423 mg/dL High 200 - 400 mg/dL [place], [place] Fibrinogen 447 mg/dL High 200-400 [facility] Comment on above: Performed By: #### P T/AP, LACT3, HEMDF, LFT3, FIBGN, ABG, BMP3, ICA ####[address] [place], [place] Glucose,Bedsideon 03-29-2020 Glucose [Mass/Vol] 148 mg/dL High 70-100 [facility] Comment on above: Result Comment: Test performed by glucose meter. Results may be 10%-15% lowerthan serum/plasma values. (CLIA ID [id number]) Performed By: #### B GLU ####[address] [place], [place] Glucose [Mass/Vol] 129 mg/dL High 70-100 [facility] Comment on above: Result Comment: Test performed by glucose meter. Results may be 10%-15% lowerthan serum/plasma values. (CLIA ID [id number]) Performed By: #### B GLU ####[id number] [facility] [place] [address] Glucose [Mass/Vol] 146 mg/dL High [address] Comment on above: Result Comment: Test performed by glucose meter. Results may be 10%-15% lowerthan serum/plasma values. (CLIA ID [id number]) Performed By: #### B GLU ####[id number] [place] [address] Glucose [Mass/Vol] 134 mg/dL High 70-100 [facility] Comment on above: Result Comment: Test performed by glucose meter. Results may be 10%-15% lowerthan serum/plasma values. (CLIA ID [id number]) Performed By: #### B GLU ####[id number] [facility] [place] [address] Glucose [Mass/Vol] 138 mg/dL High [address] Comment on above: Result Comment: Test performed by glucose meter. Results may be 10%-15% lowerthan serum/plasma values. (CLIA ID [id number]) Performed By: #### B GLU ####[address] [facility] [place] [address] Glucose [Mass/Vol] 146 mg/dL High [address] Comment on above: Result Comment: Test performed by glucose meter. Results may be 10%-15% lowerthan serum/plasma values. (CLIA ID [id number]) Performed By: #### B GLU ####[id number] [facility] [place] [address] Glucose [Mass/Vol] 134 mg/dL High 70-100 [facility] Comment on above: Result Comment: Test performed by glucose meter. Results may be 10%-15% lowerthan serum/plasma values. (CLIA ID [id number]) Performed By: #### B GLU ####[id number] [facility] [address] Glucose [Mass/Vol] 142 mg/dL High 70-100 [facility] Comment on above: Result Comment: Test performed by glucose meter. Results may be 10%-15% lowerthan serum/plasma values. (CLIA ID [id number]) Performed By: #### B GLU ####[address] [place] [address] Glucose [Mass/Vol] 122 mg/dL High 70-100 [facility] Comment on above: Result Comment: Test performed by glucose meter. Results may be 10%-15% lowerthan serum/plasma values. (CLIA ID [id number]) Performed By: #### B GLU ####[address] [facility] [place] [address] Glucose [Mass/Vol] 129 mg/dL High 70-100 [facility] Comment on above: Result Comment: Test performed by glucose meter. Results may be 10%-15% lowerthan serum/plasma values. (CLIA ID [id number]) Performed By: #### B GLU ####[address] [facility] [address] Glucose [Mass/Vol] 127 mg/dL High [address] Comment on above: Result Comment: Test performed by glucose meter. Results may be 10%-15% lowerthan serum/plasma values. (CLIA ID [id number]) Performed By: #### B GLU ####[id number] [place] [address] Glucose [Mass/Vol] 128 mg/dL High 70-[address] [place] [address] Comment on above: Result Comment: Test performed by glucose meter. Results may be 10%-15% lowerthan serum/plasma values. (CLIA ID [id number]) Performed By: #### B GLU ####[address] [facility] [place] [address] Glucose [Mass/Vol] 130 mg/dL High [address] [facility] Comment on above: Result Comment: Test performed by glucose meter. Results may be 10%-15% lowerthan serum/plasma values. (CLIA ID [id number]) Performed By: #### B GLU ####[id number] [facility] [address] Glucose [Mass/Vol] 138 mg/dL High 70-100 [facility] Comment on above: Result Comment: Test performed by glucose meter. Results may be 10%-15% lowerthan serum/plasma values. (CLIA ID [id number]) Performed By: #### B GLU ####[address] [facility] [address] Glucose [Mass/Vol] 117 mg/dL High 70-100 [facility] Comment on above: Result Comment: Test performed by glucose meter. Results may be 10%-15% lowerthan serum/plasma values. (CLIA ID [id number]) Performed By: #### B GLU ####[address] [facility] [address] Glucose [Mass/Vol] 115 mg/dL High 70-100 [facility] Comment on above: Result Comment: Test performed by glucose meter. Results may be 10%-15% lowerthan serum/plasma values. (CLIA ID [id number]) Performed By: #### B GLU ####[address] [facility] [place] [address] Glucose [Mass/Vol] 107 mg/dL High 70-100 [facility] Comment on above: Result Comment: Test performed by glucose meter. Results may be 10%-15% lowerthan serum/plasma values. (CLIA ID [id number]) Performed By: #### B GLU ####[address] [facility] [address] Glucose [Mass/Vol] 94 mg/dL Normal 70-100 [facility] Comment on above: Result Comment: Test performed by glucose meter. Results may be 10%-15% lowerthan serum/plasma values. (CLIA ID [id number]) Performed By: #### B GLU ####[id number] [facility] [address] Hemoglobin AND Hematocriton 03-29-2020 Hematocrit (Bld) [Volume fraction] 26.6 % Low 40.0-52.0 [facility] Comment on above: Performed By: #### H GHCT ####[facility] [place], [place] Hemoglobin (Bld) [Mass/Vol] 9.2 g/dL Low 13.0-18.0 [facility] Comment on above: Performed By: #### H GHCT ####[address] [place], [place] Hemoglobin and Hematocrit, B loodon 03-29-2020 Hematocrit (Bld) [Volume fraction] 26.6 % Low 40 - 52 % [place], [place] Hemoglobin (Bld) [Mass/Vol] 9.2 g/dL Low 13 - 18 g/dL [place] Interpretation and review of laboratory results Abnormal [place] Test Performed by [facility], [address] [facility] [place] [address] [place], [place] Hemogram w/ Autodiffon 03-29 Abs Baso Cnt 0.0 10*3/uL Normal 0.0-0.2 [facility] Comment on above: Performed By: #### B MP3, LFT3, FIBGN, PT/AP, LACT3, ABG, HEMDF, MG3, ICA ####[address] [place], [place] Abs Neutrophile Cnt 6.6 10*3/uL Normal 1.8-7.0 [facility] Comment on above: Performed By: #### B MP3, LFT3, FIBGN, PT/AP, LACT3, ABG, HEMDF, MG3, ICA ####[address] [place], [place] Basophils/100 WBC (Bld) 0.2 % Normal 0.0-2.0 [facility] Comment on above: Performed By: #### B MP3, LFT3, FIBGN, PT/AP, LACT3, ABG, HEMDF, MG3, ICA ####[address] [place], [place] Eosinophils (Bld) [#/Vol] 0.1 10*3/uL Normal 0.0-0.5 [facility] Comment on above: Performed By: #### B MP3, LFT3, FIBGN, PT/AP, LACT3, ABG, HEMDF, MG3, ICA ####[address] Eosinophils/100 WBC (Bld) 0.9 % Low 1.0-6.0 [facility] Comment on above: Performed By: #### B MP3, LFT3, FIBGN, PT/AP, LACT3, ABG, HEMDF, MG3, ICA ####[address] Erythrocyte distribution width (RBC) [Ratio] 15.3 % High 11.5-14.5 [facility] Comment on above: Performed By: #### B MP3, LFT3, FIBGN, PT/AP, LACT3, ABG, HEMDF, MG3, ICA ####[address] Granulocytes/100 WBC (Bld) 72.0 % Normal 40.0-80.0 [facility] Comment on above: Performed By: #### B MP3, LFT3, FIBGN, PT/AP, LACT3, ABG, HEMDF, MG3, ICA ####[address] Hematocrit (Bld) [Volume fraction] 27.4 % Low 40.0-52.0 [facility] Comment on above: Performed By: #### B MP3, LFT3, FIBGN, PT/AP, LACT3, ABG, HEMDF, MG3, ICA ####[address] Hemoglobin (Bld) [Mass/Vol] 9.6 g/dL Low 13.0-18.0 [facility] Comment on above: Performed By: #### B MP3, LFT3, FIBGN, PT/AP, LACT3, ABG, HEMDF, MG3, ICA ####[facility] [address] [place], [place] Lymphocytes (Bld) [#/Vol] 1.6 10*3/uL Normal 1.0-4.3 [facility] Comment on above: Performed By: #### B MP3, LFT3, FIBGN, PT/AP, LACT3, ABG, HEMDF, MG3, ICA ####[address] Lymphocytes/100 WBC (Bld) 17.4 % Low 20.0-40.0 [facility] Comment on above: Performed By: #### B MP3, LFT3, FIBGN, PT/AP, LACT3, ABG, HEMDF, MG3, ICA ####[address] [place], [place] MCH (RBC) [Entitic mass] 30.7 pg Normal 26.0-34.0 [facility] Comment on above: Performed By: #### B MP3, LFT3, FIBGN, PT/AP, LACT3, ABG, HEMDF, MG3, ICA ####[address] MCHC 35.1 % Normal 32.0-36.0 [facility] Comment on above: Performed By: #### B MP3, LFT3, FIBGN, PT/AP, LACT3, ABG, HEMDF, MG3, ICA ####[address] [place] MCV (RBC) [Entitic vol] 87.5 fL Normal 80.0-98.0 [facility] Comment on above: Performed By: #### B MP3, LFT3, FIBGN, PT/AP, LACT3, ABG, HEMDF, MG3, ICA ####[address] Monocytes (Bld) [#/Vol] 0.9 10*3/uL High 0.0-0.8 [facility] Comment on above: Performed By: #### B MP3, LFT3, FIBGN, PT/AP, LACT3, ABG, HEMDF, MG3, ICA ####[address] [place], [place] Monocytes/100 WBC (Bld) 9.5 % Normal 2.0-10.0 [facility] Comment on above: Performed By: #### B MP3, LFT3, FIBGN, PT/AP, LACT3, ABG, HEMDF, MG3, ICA ####[address] [place], [place] Platelet mean volume (Bld) [Entitic vol] 9.5 fL Normal 7.4-10.4 [facility] Comment on above: Performed By: #### B MP3, LFT3, FIBGN, PT/AP, LACT3, ABG, HEMDF, MG3, ICA ####[address] [place], [place] Platelets (Bld) [#/Vol] 54 10*3/uL Low 140-440 [facility] Comment on above: Performed By: #### B MP3, LFT3, FIBGN, PT/AP, LACT3, ABG, HEMDF, MG3, ICA ####[address] [place], [place] RBC (Bld) [#/Vol] 3.13 10*6/uL Low 4.40-5.90 [facility] Comment on above: Performed By: #### B MP3, LFT3, FIBGN, PT/AP, LACT3, ABG, HEMDF, MG3, ICA ####[address] [place], [place] WBC (Bld) [#/Vol] 9.1 10*3/uL Normal 3.6-10.7 [facility] Comment on above: Performed By: #### B MP3, LFT3, FIBGN, PT/AP, LACT3, ABG, HEMDF, MG3, ICA ####[address] [place], [place] Hepatic Functionon 10-15-202 0 ALP [Catalytic activity/Vol] 45 U/L Normal 38-126 [facility] Comment on above: Performed By: #### B MP3, LFT3, FIBGN, PT/AP, LACT3, ABG, HEMDF, MG3, ICA ####[address] [place], [place] ALT [Catalytic activity/Vol] 15 U/L Normal 0-49 [facility] Comment on above: Result Comment: The ALT test is performed by an updated assay method.Please note that the reference intervals have beenchanged and are now sex specific. Performed By: #### B MP3, LFT3, FIBGN, PT/AP, LACT3, ABG, HEMDF, MG3, ICA ####[address] [place], [place] AST [Catalytic activity/Vol] 43 U/L Normal 15-46 [facility] Comment on above: Performed By: #### B MP3, LFT3, FIBGN, PT/AP, LACT3, ABG, HEMDF, MG3, ICA ####[address] Bilirubin [Mass/Vol] 8.7 mg/dL High 0.2-1.3 [facility] Comment on above: Performed By: #### B MP3, LFT3, FIBGN, PT/AP, LACT3, ABG, HEMDF, MG3, ICA ####[address] [place], [place] Bilirubin.indirect [Mass/Vol] 4.6 mg/dL High 0.0-0.3 [facility] Comment on above: Performed By: #### B MP3, LFT3, FIBGN, PT/AP, LACT3, ABG, HEMDF, MG3, ICA ####[address] Protein [Mass/Vol] 5.8 g/dL Low 6.3-8.2 [facility] Comment on above: Performed By: #### B MP3, LFT3, FIBGN, PT/AP, LACT3, ABG, HEMDF, MG3, ICA ####[address], [place] Albumin [Mass/Vol] 3.5 g/dL Normal 3.5-5.0 [facility] Comment on above: Performed By: #### B MP3, LFT3, FIBGN, PT/AP, LACT3, ABG, HEMDF, MG3, ICA ####[address] ALP [Catalytic activity/Vol] 34 U/L Low 38-126 [facility] Comment on above: Performed By: #### P T/AP, LACT3, HEMDF, LFT3, FIBGN, ABG, BMP3, ICA ####[address] ALT [Catalytic activity/Vol] 14 U/L Normal 0-49 [facility] Comment on above: Result Comment: The ALT test is performed by an updated assay method.Please note that the reference intervals have beenchanged and are now sex specific. Performed By: #### P T/AP, LACT3, HEMDF, LFT3, FIBGN, ABG, BMP3, ICA ####[address] AST [Catalytic activity/Vol] 39 U/L Normal 15-46 [facility] Comment on above: Performed By: #### P T/AP, LACT3, HEMDF, LFT3, FIBGN, ABG, BMP3, ICA ####[address] Bilirubin [Mass/Vol] 8.0 mg/dL High 0.2-1.3 [facility] Comment on above: Performed By: #### P T/AP, LACT3, HEMDF, LFT3, FIBGN, ABG, BMP3, ICA ####[address] Bilirubin.indirect [Mass/Vol] 4.2 mg/dL High 0.0-0.3 [facility] Comment on above: Performed By: #### P T/AP, LACT3, HEMDF, LFT3, FIBGN, ABG, BMP3, ICA ####[facility] [place], [place] Protein [Mass/Vol] 5.2 g/dL Low 6.3-8.2 [facility] Comment on above: Performed By: #### P T/AP, LACT3, HEMDF, LFT3, FIBGN, ABG, BMP3, ICA ####[facility] [place], [place] Albumin [Mass/Vol] 3.2 g/dL Low 3.5-5.0 [facility] Comment on above: Performed By: #### P T/AP, LACT3, HEMDF, LFT3, FIBGN, ABG, BMP3, ICA ####[address] [place], [place] Hepatic Function Panelon Albumin [Mass/Vol] 3.5 g/dL 3.5 - 5 g/dL [place], [place] ALP [Catalytic activity/Vol] 45 U/L 38 - 126 U/L [place] ALT [Catalytic activity/Vol] 15 U/L 0 - 49 U/L [place] Comment on above: The ALT test is perf ormed by an updated assay method. Please note that the reference intervals have been changed and are now sex specific. AST [Catalytic activity/Vol] 43 U/L 15 - 46 U/L [place] Bilirubin Ql (U) 8.7 mg/dL High 0.2 - 1.3 mg/dL [place] Bilirubin.direct [Mass/Vol] 4.6 mg/dL High 0 - 0.3 mg/dL [place], [place] Protein [Mass/Vol] 5.8 g/dL Low 6.3 - 8.2 g/dL [place] Lactic Acidon 03-29-2020 Lactate [Moles/Vol] 0.9 mmol/L Normal 0.7-2.0 [facility] Comment on above: Performed By: #### B MP3, LFT3, FIBGN, PT/AP, LACT3, ABG, HEMDF, MG3, ICA ####[facility] [address] [place] [address] Lactic Acid, Plasmaon 2019 Lactate [Moles/Vol] 0.9 mmol/L 0.7 - 2 mmol/L [facility], [place] Test Performed by [facility], [facility] [place] [address] [place], [place] Magnesiumon 03-29-2020 Magnesium [Mass/Vol] 1.8 mg/dL Normal 1.6-2.3 [facility] Comment on above: Performed By: #### B MP3, LFT3, FIBGN, PT/AP, LACT3, ABG, HEMDF, MG3, ICA ####[facility] [place] [address] Magnesium [Mass/Vol] 1.8 mg/dL 1.6 - 2 .3 mg/dL [place], [place] Otheron 03-29-2020 Interpretation and review of laboratory results Abnormal [facility] [place] [place] Test Performed by [facility], [facility] [place] [address] [place], [place] Interpretation and review of laboratory results Abnormal [facility] [place] Test Performed by [facility], [facility] [place] [address] [place], [place] POCT Glucoseon 03-29-2020 Glucose [Mass/Vol] 148 mg/dL High 70 - 100 mg/dL [place], [place] Comment on above: Test performed by gl ucose meter. Results may be 10%-15% lower than serum/plasma values. (CLIA ID [id number]) Interpretation and review of laboratory results Abnormal [facility] [place], [place] Test Performed by [facility], [facility] [address] [place], [place] [id number] [place] [address] Glucose [Mass/Vol] 129 mg/dL High 70 - 100 mg/dL [place], [place] Comment on above: Test performed by gl ucose meter. Results may be 10%-15% lower than serum/plasma values. (CLIA ID [id number]) Interpretation and review of laboratory results Abnormal [facility] [place] Test Performed by [facility], [facility] [address] [place] [address] [facility] [place] Glucose [Mass/Vol] 146 mg/dL High 70 - 100 mg/dL [facility] [place] Comment on above: Test performed by gl ucose meter. Results may be 10%-15% lower than serum/plasma values. (CLIA ID [id number]) Interpretation and review of laboratory results Abnormal [facility] [place] Test Performed by [facility], [address] [place] [address] [facility] [place] Glucose [Mass/Vol] 134 mg/dL High 70 - 100 mg/dL [facility] [place] Comment on above: Test performed by gl ucose meter. Results may be 10%-15% lower than serum/plasma values. (CLIA ID [id number]) Interpretation and review of laboratory results Abnormal [facility] [place] Test Performed by [facility], [address], [place] [address] [facility] [place] Glucose [Mass/Vol] 138 mg/dL High 70 - 100 mg/dL [facility] [place] Comment on above: Test performed by gl ucose meter. Results may be 10%-15% lower than serum/plasma values. (CLIA ID [id number]) Interpretation and review of laboratory results Abnormal [facility] [place] Test Performed by [facility], [address] [place] [address] [facility] [place] Glucose [Mass/Vol] 146 mg/dL High 70 - 100 mg/dL [facility] [place] Comment on above: Test performed by gl ucose meter. Results may be 10%-15% lower than serum/plasma values. (CLIA ID [id number]) Interpretation and review of laboratory results Abnormal [facility] [place] Test Performed by [facility], [address] [place] [address] [facility] [place] Glucose [Mass/Vol] 134 mg/dL High 70 - 100 mg/dL [facility] [place] Comment on above: Test performed by gl ucose meter. Results may be 10%-15% lower than serum/plasma values. (CLIA ID [id number]) Interpretation and review of laboratory results Abnormal [facility] [place] Test Performed by [facility], [address] [place] [address] [facility] [place] Glucose [Mass/Vol] 142 mg/dL High 70 - 100 mg/dL [facility] [place] Comment on above: Test performed by gl ucose meter. Results may be 10%-15% lower than serum/plasma values. (CLIA ID [id number]) Interpretation and review of laboratory results Abnormal [facility] [place] Test Performed by [facility], [address] [place] [address] [facility] [place] Glucose [Mass/Vol] 122 mg/dL High 70 - 100 mg/dL [facility] [place] Comment on above: Test performed by gl ucose meter. Results may be 10%-15% lower than serum/plasma values. (CLIA ID [id number]) Interpretation and review of laboratory results Abnormal [facility] [place] Test Performed by [facility], [address] [place] [address] [facility] Glucose [Mass/Vol] 129 mg/dL High 70 - 100 mg/dL [facility] [place] Comment on above: Test performed by gl ucose meter. Results may be 10%-15% lower than serum/plasma values. (CLIA ID [id number]) Interpretation and review of laboratory results Abnormal [facility] [place] Test Performed by [facility], [address] [place] [address] [facility] Glucose [Mass/Vol] 127 mg/dL High 70 - 100 mg/dL [facility] Comment on above: Test performed by gl ucose meter. Results may be 10%-15% lower than serum/plasma values. (CLIA ID [id number]) Interpretation and review of laboratory results Abnormal [facility] Test Performed by [facility], [address] [place] [address] [facility] Glucose [Mass/Vol] 128 mg/dL High 70 - 100 mg/dL [facility] Comment on above: Test performed by gl ucose meter. Results may be 10%-15% lower than serum/plasma values. (CLIA ID [id number]) Interpretation and review of laboratory results Abnormal [facility] [place] Test Performed by [facility], [address] [place] [address] [facility] Glucose [Mass/Vol] 130 mg/dL High 70 - 100 mg/dL [facility] [place] Comment on above: Test performed by gl ucose meter. Results may be 10%-15% lower than serum/plasma values. (CLIA ID [id number]) Interpretation and review of laboratory results Abnormal [facility] [place] Test Performed by [facility], [address] [place] [address] [facility] [place] Glucose [Mass/Vol] 138 mg/dL High 70 - 100 mg/dL [facility] [place] Comment on above: Test performed by gl ucose meter. Results may be 10%-15% lower than serum/plasma values. (CLIA ID [id number]) Interpretation and review of laboratory results Abnormal [facility] [place] Test Performed by [facility], [address] [place] [address] [facility] Glucose [Mass/Vol] 117 mg/dL High 70 - 100 mg/dL [facility] Comment on above: Test performed by gl ucose meter. Results may be 10%-15% lower than serum/plasma values. (CLIA ID [id number]) Interpretation and review of laboratory results Abnormal [facility] [place] Test Performed by [facility], [address] [place] [address] [facility] Glucose [Mass/Vol] 115 mg/dL High 70 - 100 mg/dL [facility] Comment on above: Test performed by gl ucose meter. Results may be 10%-15% lower than serum/plasma values. (CLIA ID [id number]) Interpretation and review of laboratory results Abnormal [facility] [place] Test Performed by [facility], [address] [place] [address] [facility] PROTIME/INR & PTTon 10-15-20 20 aPTT Coag (Bld) [Time] 41.5 s High 20 - 30.5 s [facility] [place] Comment on above: NOTE: The therapeuti c time for Heparin anticoagulation, based on Xa activity inhibition, is an APTT of 46-80 seconds. INR Coag (PPP) [Relative time] 1.2 {INR} High [place], [place] Comment on above: Recommended Anticoag ulant Therapy: SEE BELOW ----- INR of 2.0 - 3.0 : - Prophylaxis of Venous Thrombosis (high-risk surgery) - Treatment of Venous Thrombosis - Treatment of Pulmonary Embolism (Includes tissue heart valves, Acute Myocardial Infarction to prevent systemic embolism, Valvular Heart Disease, and Atrial Fibrillation) ----- INR of 2.5 - 3.5 : - Mechanical Prosthetic Valves (high risk) - If oral anticoagulant therapy is used to prevent Myocardial Infarction PT Coag (PPP) [Time] 13 s High 9 - 12 s [place], [place] Comment on above: . Protime AND APTTon 10-15-202 0 aPTT Coag (Bld) [Time] 41.5 s High 20.0-30.5 [facility] Comment on above: Result Comment: NOTE : The therapeutic time for Heparin anticoagulation,based on Xa activity inhibition, is an APTT of 46-80seconds. Performed By: #### B MP3, LFT3, FIBGN, PT/AP, LACT3, ABG, HEMDF, MG3, ICA ####[address] [place] [address] INR 1.2 High 0.9-1.[address] [facility] Comment on above: Result Comment: Ty mmended Anticoagulant Therapy: SEE BELOW----- INR of 2.0 - 3.0 : - Prophylaxis of Venous Thrombosis (high-risk surgery) - Treatment of Venous Thrombosis - Treatment of Pulmonary Embolism (Includes tissue heart valves, Acute Myocardial Infarction to prevent systemic embolism, Valvular Heart Disease, and Atrial Fibrillation)----- INR of 2.5 - 3.5 : - Mechanical Prosthetic Valves (high risk) - If oral anticoagulant therapy is used to prevent Myocardial Infarction Performed By: #### B MP3, LFT3, FIBGN, PT/AP, LACT3, ABG, HEMDF, MG3, ICA ####[address] [place], [place] PT Coag (PPP) [Time] 13.0 s High 9.0-12.0 [facility] Comment on above: Result Comment: . Performed By: #### B MP3, LFT3, FIBGN, PT/AP, LACT3, ABG, HEMDF, MG3, ICA ####[address] [place], [place] aPTT Coag (Bld) [Time] 44.4 s High 20.0-30.5 [facility] Comment on above: Result Comment: NOTE : The therapeutic time for Heparin anticoagulation,based on Xa activity inhibition, is an APTT of 46-80seconds. Performed By: #### P T/AP, LACT3, HEMDF, LFT3, FIBGN, ABG, BMP3, ICA ####[address] INR 1.2 High 0.9-1.1 [facility] Comment on above: Result Comment: Ty mmended Anticoagulant Therapy: SEE BELOW----- INR of 2.0 - 3.0 : - Prophylaxis of Venous Thrombosis (high-risk surgery) - Treatment of Venous Thrombosis - Treatment of Pulmonary Embolism (Includes tissue heart valves, Acute Myocardial Infarction to prevent systemic embolism, Valvular Heart Disease, and Atrial Fibrillation)----- INR of 2.5 - 3.5 : - Mechanical Prosthetic Valves (high risk) - If oral anticoagulant therapy is used to prevent Myocardial Infarction Performed By: #### P T/AP, LACT3, HEMDF, LFT3, FIBGN, ABG, BMP3, ICA ####[address] [place], [place] PT Coag (PPP) [Time] 13.4 s High 9.0-12.0 [facility] Comment on above: Result Comment: . Performed By: #### P T/AP, LACT3, HEMDF, LFT3, FIBGN, ABG, BMP3, ICA ####[address] [place], [place] Surgical Pathologyon 020 Sodium [Moles/Vol] SEE BELOW [facility], [place] 1 [id number] [facility] PATHOLOGY AND LABORATORY MEDICINE [address] [place] [id number] FINAL PERIPHERAL BLOOD REPORT ___ NAME: KAREN KEARNS : 1940 79 [address] M [facility] NO.: [id number] LOCATION: [address] [place] [address] 21 PROCEDURE 03/27/2020 DATE: SURGEON: ANGELY VALLECILLO MD RECEIVED DATE: 03/29/2020 ATTENDING ELIZABETH MILLER M.D. REPORT DATE: 03/29/2020 : COPIES TO: ___ DIAGNOSIS: THROMBOCYTOPENIA, SLIGHT LEUKOCYTOSIS WITH MATURE NEUTROPHILIA AND NORMOCYTIC ANEMIA WITH ANISOCYTOSIS, RULE OUT INFECTION, DRUG TOXICITY, AND/OR BLOOD LOSS/COAGULOPATHY A FEW SCHISTOCYTES ARE SEEN NO BLASTS OR DYSGRANULOPOIESIS IS SEEN SENIOR ORACLE DBA/SENIOR ORACLE DBA Signature> ANH CONTEH M.D. ___ CLINICAL INFORMATION: Peripheral Smear SPECIMEN: PERIPHERAL BLOOD SMEAR ___ GROSS DESCRIPTION: Peripheral smear slide prepared for evaluation. LH3/LH3 Disclaimer: The following statement applies to all immunohistochemistry, in situ hybridization, molecular studies, and immunofluorescence testing. The use of one or more reagents in the above tests is regulated as an analyte specific reagent (ASR). These tests were developed and their performance characteristics determined by the clinical laboratories of [facility]. They have not been cleared by the US Food and Drug Administration (FDA). The FDA has determined that such clearance or approval is not necessary. All the above immunostains were performed on paraffin embedded tissue. Appropriate positive and negative controls (where applicable) were run in parallel with the patient's specimen; these controls showed expected staining pattern, with acceptable intensity of staining. Immunohistochemical assays have not been validated on decalcified tissues. Results should be interpreted with caution given the raised possibility of false negativity on decalcified specimens. DEPARTMENT OF PATHOLOGY AND LABORATORY MEDICINE [place], [place] [address] [place], [place] XR CHEST 1 VWon 03-29-2020 Patient Name: KAREN KEARNS ---Diagnostic Radiology--- Exam Date/Time 03/29/2020 04:10:57 EDT Exam CR Chest 1 View Frontal Ordering Physician MD KHALIL JAMES A Accession Number [id number] CPT4 Codes 74392 () Reason For Exam increased O2 demand Report CLINICAL INFORMATION: Hypoxia. Extubated. Portable view of the chest at 0340 hours is provided and compared to a previous study dated March 28, 2020. FINDINGS: The patient is now extubated. A Blair-Dhaval catheter remains in place via the right internal jugular vein. The distal tip is in the pulmonary outflow tract. The patient is status post median sternotomy. The heart size is normal. Chest tubes are in place. There is no pneumothorax. There are mild bibasilar infiltrates. IMPRESSION: 1. Now extubated. 2. Mild bibasilar infiltrates. 3. Chest tubes without pneumothorax. Report Dictated on Workstation: [id number] --- Final --- Dictated: 03/29/2020 4:28 am Dictating Physician: MD SCHAFFER JEFFREY Signed Date and Time: 03/29/2020 4:29 am Signed by: MD SCHAFFER JEFFREY Transcribed Date and Time: 03/29/2020 4:28 [place], [place] [facility] - 03/29/2020 4:31 AM EDT Patient Name: KAREN KEARNS ---Diagnostic Radiology--- Exam Date/Time 03/29/2020 04:10:57 EDT Exam CR Chest 1 View Frontal Ordering Physician MD SIMRAN, MARYAM Bradley Accession Number [id number] CPT4 Codes 24982 () Reason For Exam increased O2 demand Report CLINICAL INFORMATION: Hypoxia. Extubated. Portable view of the chest at 0340 hours is provided and compared to a previous study dated March 28, 2020. FINDINGS: The patient is now extubated. A Blair-Dhaval catheter remains in place via the right internal jugular vein. The distal tip is in the pulmonary outflow tract. The patient is status post median sternotomy. The heart size is normal. Chest tubes are in place. There is no pneumothorax. There are mild bibasilar infiltrates. IMPRESSION: 1. Now extubated. 2. Mild bibasilar infiltrates. 3. Chest tubes without pneumothorax. Report Dictated on Workstation: [id number] --- Final --- Dictated: 03/29/2020 4:28 am Dictating Physician: MD SCHAFFER JEFFREY Signed Date and Time: 03/29/2020 4:29 am Signed by: MD SCHAFFER JEFFREY Transcribed Date and Time: 03/29/2020 4:28 [place], [place] ANTIBODY IDENTIFICATIONon Sodium [Moles/Vol] POS, ANTI E [place], [place] Test Performed by [facility], [facility] [place] [address] [place], [place] Add on test from HISon 03-28 Add on test from HIS Accepted Normal [facility] Comment on above: Result Comment: Spec imen available & acceptable for analysis. Performed By: #### A DDON ####[facility] [address] [place] [place] [address] Antibody Identificationon Antibody Identification Antibody Identification: POS, ANTI E Normal [facility] Comment on above: Performed By: #### T SGL ####[address] [address]#### LRC ####[address] [address]#### ABID ####[facility] Arterial Blood Gaseson 03-28 CO2 [Moles/Vol] 24.5 mmol/L Normal 23.0-27.0 [facility] Comment on above: Performed By: #### P T/AP, LACT3, HEMDF, LFT3, FIBGN, ABG, BMP3, ICA ####[address] HCO3 (Bld) [Moles/Vol] 23.4 mmol/L Normal 21.0-25.0 [facility] Comment on above: Performed By: #### P T/AP, LACT3, HEMDF, LFT3, FIBGN, ABG, BMP3, ICA ####[address] Hemoglobin (Bld) [Mass/Vol] 8.3 g/dL Normal ScreenOnly [facility] Comment on above: Performed By: #### P T/AP, LACT3, HEMDF, LFT3, FIBGN, ABG, BMP3, ICA ####[address] Oxygen (Bld) [Partial pressure] 73.3 mm[Hg] Low 80.0-100.0 [facility] Comment on above: Performed By: #### P T/AP, LACT3, HEMDF, LFT3, FIBGN, ABG, BMP3, ICA ####[address] Oxygen saturation in Blood 93.9 % Low 95.0-100.0 [facility] Comment on above: Performed By: #### P T/AP, LACT3, HEMDF, LFT3, FIBGN, ABG, BMP3, ICA ####[address] pCO2 37.9 mm[Hg] Normal 35.0-45.0 [facility] Comment on above: Performed By: #### P T/AP, LACT3, HEMDF, LFT3, FIBGN, ABG, BMP3, ICA ####[address] pH 7.408 Normal 7.350-7.450 [facility] Comment on above: Performed By: #### P T/AP, LACT3, HEMDF, LFT3, FIBGN, ABG, BMP3, ICA ####[address] Std Base Excess -1.1 mmol/L Normal -3.0-3.0 [facility] Comment on above: Performed By: #### P T/AP, LACT3, HEMDF, LFT3, FIBGN, ABG, BMP3, ICA ####[address] FIO2 No data Normal [facility] Comment on above: Performed By: #### P T/AP, LACT3, HEMDF, LFT3, FIBGN, ABG, BMP3, ICA ####[address] CO2 [Moles/Vol] 26.9 mmol/L Normal 23.0-27.0 [facility] Comment on above: Performed By: #### P T/AP, HEMDF, FIBGN, ABG, BMP3, LACT3, LFT3, ICA ####[address] HCO3 (Bld) [Moles/Vol] 25.6 mmol/L High 21.0-25.0 [facility] Comment on above: Performed By: #### P T/AP, HEMDF, FIBGN, ABG, BMP3, LACT3, LFT3, ICA ####[address] Hemoglobin (Bld) [Mass/Vol] 7.9 g/dL Normal [facility]Only [facility] Comment on above: Performed By: #### P T/AP, HEMDF, FIBGN, ABG, BMP3, LACT3, LFT3, ICA ####[address] Oxygen (Bld) [Partial pressure] 89.3 mm[Hg] Normal 80.0-100.0 [facility] Comment on above: Performed By: #### P T/AP, HEMDF, FIBGN, ABG, BMP3, LACT3, LFT3, ICA ####[address] Oxygen saturation in Blood 96.0 % Normal 95.0-100.0 [facility] Comment on above: Performed By: #### P T/AP, HEMDF, FIBGN, ABG, BMP3, LACT3, LFT3, ICA ####[address] pCO2 43.6 mm[Hg] Normal 35.0-45.0 [facility] Comment on above: Performed By: #### P T/AP, HEMDF, FIBGN, ABG, BMP3, LACT3, LFT3, ICA ####[address] pH 7.386 Normal 7.350-7.450 [facility] Comment on above: Performed By: #### P T/AP, HEMDF, FIBGN, ABG, BMP3, LACT3, LFT3, ICA ####[address] Std Base Excess 0.4 mmol/L Normal -3.0-3.0 [facility] Comment on above: Performed By: #### P T/AP, HEMDF, FIBGN, ABG, BMP3, LACT3, LFT3, ICA ####[address] FIO2 No data Normal [facility] Comment on above: Performed By: #### P T/AP, HEMDF, FIBGN, ABG, BMP3, LACT3, LFT3, ICA ####[address] CO2 [Moles/Vol] 24.7 mmol/L Normal 23.0-27.0 [facility] Comment on above: Performed By: #### F IBGN, PT/AP, HEMDF, ICA, LACT3, LFT3, ABG, BMP3, LAURIE ####[address] [place], [place] HCO3 (Bld) [Moles/Vol] 23.6 mmol/L Normal 21.0-25.0 [facility] Comment on above: Performed By: #### F IBGN, PT/AP, HEMDF, ICA, LACT3, LFT3, ABG, BMP3, LAURIE ####[address] [place], [place] Hemoglobin (Bld) [Mass/Vol] 8.5 g/dL Normal ScreenOnly [facility] Comment on above: Performed By: #### F IBGN, PT/AP, HEMDF, ICA, LACT3, LFT3, ABG, BMP3, LAURIE ####[address] Oxygen (Bld) [Partial pressure] 105.0 mm[Hg] High 80.0-100.0 [facility] Comment on above: Performed By: #### F IBGN, PT/AP, HEMDF, ICA, LACT3, LFT3, ABG, BMP3, LAURIE ####[address] Oxygen saturation in Blood 97.1 % Normal 95.0-100.0 [facility] Comment on above: Performed By: #### F IBGN, PT/AP, HEMDF, ICA, LACT3, LFT3, ABG, BMP3, LAURIE ####[address] pCO2 35.0 mm[Hg] Normal 35.0-45.0 [facility] Comment on above: Performed By: #### F IBGN, PT/AP, HEMDF, ICA, LACT3, LFT3, ABG, BMP3, LAURIE ####[address] pH 7.447 Normal 7.350-7.450 [facility] Comment on above: Performed By: #### F IBGN, PT/AP, HEMDF, ICA, LACT3, LFT3, ABG, BMP3, LAURIE ####[facility] [place], [place] Std Base Excess -0.2 mmol/L Normal -3.0-3.0 [facility] Comment on above: Performed By: #### F IBGN, PT/AP, HEMDF, ICA, LACT3, LFT3, ABG, BMP3, LAURIE ####[facility] [place], [place] FIO2 No data Normal [facility] Comment on above: Performed By: #### F IBGN, PT/AP, HEMDF, ICA, LACT3, LFT3, ABG, BMP3, LAURIE ####[address] [place], [place] CO2 [Moles/Vol] 26.1 mmol/L Normal 23.0-27.0 [facility] Comment on above: Performed By: #### I CA, HEMDF, PT/AP, FIBGN, LACT3, ABG ####[facility] [place], [place] HCO3 (Bld) [Moles/Vol] 25.1 mmol/L High 21.0-25.0 [facility] Comment on above: Performed By: #### I CA, HEMDF, PT/AP, FIBGN, LACT3, ABG ####[address] [place], [place] Hemoglobin (Bld) [Mass/Vol] 8.6 g/dL Normal ScreenOnly [facility] Comment on above: Performed By: #### I CA, HEMDF, PT/AP, FIBGN, LACT3, ABG ####[address] [place], [place] Oxygen (Bld) [Partial pressure] 91.7 mm[Hg] Normal 80.0-100.0 [facility] Comment on above: Performed By: #### I CA, HEMDF, PT/AP, FIBGN, LACT3, ABG ####[address] [place], [place] Oxygen saturation in Blood 96.5 % Normal 95.0-100.0 [facility] Comment on above: Performed By: #### I CA, HEMDF, PT/AP, FIBGN, LACT3, ABG ####[address] [address] [place], [place] pCO2 35.3 mm[Hg] Normal 35.0-45.0 [facility] Comment on above: Performed By: #### I CA, HEMDF, PT/AP, FIBGN, LACT3, ABG ####[address] pH 7.469 High 7.350-7.450 [facility] Comment on above: Performed By: #### I CA, HEMDF, PT/AP, FIBGN, LACT3, ABG ####[address] [address] [place], [place] Std Base Excess 1.4 mmol/L Normal -3.0-3.0 [facility] Comment on above: Performed By: #### I CA, HEMDF, PT/AP, FIBGN, LACT3, ABG ####[address] FIO2 no data Normal [facility] Comment on above: Performed By: #### I CA, HEMDF, PT/AP, FIBGN, LACT3, ABG ####[address] [address] [place], [place] Basic Metabolic Panelon 10-1 Anion gap [Moles/Vol] 9 mmol/L [facility], [place] Calcium [Mass/Vol] 8.4 mg/dL 8.4 - 10. 4 mg/dL [facility], [place] Chloride [Moles/Vol] 104 mmol/L 98 - 10 7 mmol/L [place], [place] CO2 [Moles/Vol] 23 mmol/L 22 - 30 mmol/L [place] Creatinine [Mass/Vol] 1.3 mg/dL High 0.52 - 1.25 mg/dL [place], [place] EGFR IF NonAfrican [place]ian 51.2 mL/min Abnormal >60 [place], [place] Comment on above: KDIGO guidelines pro vide the following GFR categories: Stage GFR(ml/min/1.73 m2) Terms G1 >=90 Normal or high G2 60-89 Mildly decreased* G3a 45-59 Mildly to moderately decreased G3b 30-44 Moderately to severely decreased G4 15-29 Severely decreased G5 <15 Kidney failure *Relative to young adult level. In the absence of evidence of kidney damage, neither GFR category G1 nor G2 fulfill the criteria for CKD. The CKD-EPI equation is validated in individuals 18 years of age and older. Currently the best equation for estimating glomerular filtration rate (GFR) from serum creatinine in children is the Bedside Pelletier equation. It is less accurate in patients with extremes of muscle mass, restriction of dietary protein, ingestion of creatine, extra-renal metabolism of creatinine, or treatment with medications that affect renal tubular creatinine secretion. GFR/1.73 sq M predicted among blacks MDRD (S/P/Bld) [Vol rate/Area] 59.3 mL/min/{1.73_m2} Abnormal >60 [place], [place] Glucose [Mass/Vol] 124 mg/dL High 70 - 100 mg/dL [place] Potassium [Moles/Vol] 4.7 mmol/L 3.5 - 5.1 mmol/L [place] Sodium [Moles/Vol] 136 mmol/L 135 - 145 mmol/L [place] Urea nitrogen [Mass/Vol] 37 mg/dL High 7 - 20 mg/dL [place] Calcium [Mass/Vol] 8.3 mg/dL Low 8.4-10.4 [facility] Comment on above: Performed By: #### P T/AP, HEMDF, FIBGN, ABG, BMP3, LACT3, LFT3, ICA ####[facility] [place] [address] Anion Gap 6 Normal [facility] Comment on above: Performed By: #### P T/AP, HEMDF, FIBGN, ABG, BMP3, LACT3, LFT3, ICA ####[address] [place], [place] CO2 [Moles/Vol] 25 mmol/L Normal 22-30 [facility] Comment on above: Performed By: #### P T/AP, HEMDF, FIBGN, ABG, BMP3, LACT3, LFT3, ICA ####[address] [place], [place] Creatinine [Mass/Vol] 1.22 mg/dL Normal 0.52-1.25 [facility] Comment on above: Performed By: #### P T/AP, HEMDF, FIBGN, ABG, BMP3, LACT3, LFT3, ICA ####[address] [place], [place] GFR/1.73 sq M.predicted among blacks MDRD (S/P/Bld) [Vol rate/Area] 64.1 mL/min/{1.73_m2} Normal >60 [facility] Comment on above: Performed By: #### P T/AP, HEMDF, FIBGN, ABG, BMP3, LACT3, LFT3, ICA ####[address] [place], [place] GFR/1.73 sq M.predicted among non-blacks MDRD (S/P/Bld) [Vol rate/Area] 55.3 mL/min/{1.73_m2} Abnormal >60 [facility] Comment on above: Result Comment: KDIG O guidelines provide the following GFR categories:Stage GFR(ml/min/1.73 m2) TermsG1 >=90 Normal or highG2 60-89 Mildly decreased*G3a 45-59 Mildly to moderately [id number] 30-44 Moderately to severely decreasedG4 15-29 Severely decreasedG5 <15 Kidney failure*Relative to young adult level.In the absence of evidence of kidney damage, neither GFRcategory G1 nor G2 fulfill the criteria for CKD.The CKD-EPI equation is validated in individuals 18 yearsof age and older. Currently the best equation forestimating glomerular filtration rate (GFR) from serumcreatinine in children is the Bedside Pelletier equation.It is less accurate in patients with extremes of musclemass, restriction of dietary protein, ingestion of creatine,extra-renal metabolism of creatinine, or treatment withmedications that affect renal tubular creatinine secretion. Performed By: #### P T/AP, HEMDF, FIBGN, ABG, BMP3, LACT3, LFT3, ICA ####[address] [place], [place] Glucose [Mass/Vol] 115 mg/dL High 70-100 [facility] Comment on above: Performed By: #### P T/AP, HEMDF, FIBGN, ABG, BMP3, LACT3, LFT3, ICA ####[address] [address] [place], [place] Urea nitrogen [Mass/Vol] 35 mg/dL High 7-20 [facility] Comment on above: Performed By: #### P T/AP, HEMDF, FIBGN, ABG, BMP3, LACT3, LFT3, ICA ####[address] Potassium [Moles/Vol] 4.5 mmol/L Normal 3.5-5.1 [facility] Comment on above: Performed By: #### P T/AP, HEMDF, FIBGN, ABG, BMP3, LACT3, LFT3, ICA ####[address] [address] [place], [place] Sodium [Moles/Vol] 136 mmol/L Normal 135-145 [facility] Comment on above: Performed By: #### P T/AP, HEMDF, FIBGN, ABG, BMP3, LACT3, LFT3, ICA ####[address] [address] [place], [place] Chloride [Moles/Vol] 105 mmol/L Normal 98-107 [facility] Comment on above: Performed By: #### P T/AP, HEMDF, FIBGN, ABG, BMP3, LACT3, LFT3, ICA ####[address] [address] [place], [place] Anion gap [Moles/Vol] 6 mmol/L [place], [place] Calcium [Mass/Vol] 8.3 mg/dL Low 8.4 - 10. 4 mg/dL [place] Chloride [Moles/Vol] 105 mmol/L 98 - 10 7 mmol/L [place] CO2 [Moles/Vol] 25 mmol/L 22 - 30 mmol/L [place] Creatinine [Mass/Vol] 1.22 mg/dL 0.52 - 1.25 mg/dL [place], [place] EGFR IF NonAfrican [place]ian 55.3 mL/min Abnormal >60 [place], [place] Comment on above: KDIGO guidelines pro vide the following GFR categories: Stage GFR(ml/min/1.73 m2) Terms G1 >=90 Normal or high G2 60-89 Mildly decreased* G3a 45-59 Mildly to moderately decreased G3b 30-44 Moderately to severely decreased G4 15-29 Severely decreased G5 <15 Kidney failure *Relative to young adult level. In the absence of evidence of kidney damage, neither GFR category G1 nor G2 fulfill the criteria for CKD. The CKD-EPI equation is validated in individuals 18 years of age and older. Currently the best equation for estimating glomerular filtration rate (GFR) from serum creatinine in children is the Bedside Pelletier equation. It is less accurate in patients with extremes of muscle mass, restriction of dietary protein, ingestion of creatine, extra-renal metabolism of creatinine, or treatment with medications that affect renal tubular creatinine secretion. GFR/1.73 sq M predicted among blacks MDRD (S/P/Bld) [Vol rate/Area] 64.1 mL/min/{1.73_m2} >60 [place], [place] Glucose [Mass/Vol] 115 mg/dL High 70 - 100 mg/dL [place], [place] Potassium [Moles/Vol] 4.5 mmol/L 3.5 - 5.1 mmol/L [place], [place] Sodium [Moles/Vol] 136 mmol/L 135 - 145 mmol/L [place], [place] Urea nitrogen [Mass/Vol] 35 mg/dL High 7 - 20 mg/dL [place], [place] Calcium [Mass/Vol] 8.7 mg/dL Normal 8.4-10.4 [facility] Comment on above: Performed By: #### F IBGN, PT/AP, HEMDF, ICA, LACT3, LFT3, ABG, BMP3, LAURIE ####[facility] [place], [place] Glucose [Mass/Vol] 108 mg/dL High 70-100 [facility] Comment on above: Performed By: #### F IBGN, PT/AP, HEMDF, ICA, LACT3, LFT3, ABG, BMP3, LAURIE ####[facility] [place], [place] Urea nitrogen [Mass/Vol] 34 mg/dL High 7-20 [facility] Comment on above: Performed By: #### F IBGN, PT/AP, HEMDF, ICA, LACT3, LFT3, ABG, BMP3, LAURIE ####[facility] [place], [place] Anion Gap 5 Normal [facility] Comment on above: Performed By: #### F IBGN, PT/AP, HEMDF, ICA, LACT3, LFT3, ABG, BMP3, LAURIE ####[facility] [place], [place] GFR/1.73 sq M.predicted among non-blacks MDRD (S/P/Bld) [Vol rate/Area] 58.2 mL/min/{1.73_m2} Abnormal >60 [facility] Comment on above: Result Comment: KDIG O guidelines provide the following GFR categories:Stage GFR(ml/min/1.73 m2) TermsG1 >=90 Normal or highG2 60-89 Mildly decreased*G3a 45-59 Mildly to moderately oubsnpinwW2d 30-44 Moderately to severely decreasedG4 15-29 Severely decreasedG5 <15 Kidney failure*Relative to young adult level.In the absence of evidence of kidney damage, neither GFRcategory G1 nor G2 fulfill the criteria for CKD.The CKD-EPI equation is validated in individuals 18 yearsof age and older. Currently the best equation forestimating glomerular filtration rate (GFR) from serumcreatinine in children is the Bedside Pelletier equation.It is less accurate in patients with extremes of musclemass, restriction of dietary protein, ingestion of creatine,extra-renal metabolism of creatinine, or treatment withmedications that affect renal tubular creatinine secretion. Performed By: #### F IBGN, PT/AP, HEMDF, ICA, LACT3, LFT3, ABG, BMP3, LAURIE ####[address] [place], [place] Chloride [Moles/Vol] 106 mmol/L Normal 98-107 [facility] Comment on above: Performed By: #### F IBGN, PT/AP, HEMDF, ICA, LACT3, LFT3, ABG, BMP3, LAURIE ####[address] [place], [place] Potassium [Moles/Vol] 4.1 mmol/L Normal 3.5-5.1 [facility] Comment on above: Performed By: #### F IBGN, PT/AP, HEMDF, ICA, LACT3, LFT3, ABG, BMP3, LAURIE ####[address] [address] [place], [place] Sodium [Moles/Vol] 135 mmol/L Normal 135-145 [facility] Comment on above: Performed By: #### F IBGN, PT/AP, HEMDF, ICA, LACT3, LFT3, ABG, BMP3, LAURIE ####[address] CO2 [Moles/Vol] 24 mmol/L Normal 22-30 [place], [place] Comment on above: Performed By: #### F IBGN, PT/AP, HEMDF, ICA, LACT3, LFT3, ABG, BMP3, LAURIE ####[address] [place], [place] Creatinine [Mass/Vol] 1.17 mg/dL Normal 0.52-1.25 [place], [place] Comment on above: Performed By: #### F IBGN, PT/AP, HEMDF, ICA, LACT3, LFT3, ABG, BMP3, LAURIE ####[address] [place], [place] GFR/1.73 sq M predicted among blacks MDRD (S/P/Bld) [Vol rate/Area] 67.4 mL/min/{1.73_m2} Normal >60 [place], [place] Comment on above: Performed By: #### F IBGN, PT/AP, HEMDF, ICA, LACT3, LFT3, ABG, BMP3, LAURIE ####[facility] [place] [address] Anion gap [Moles/Vol] 5 mmol/L [place], [place] Calcium [Mass/Vol] 8.7 mg/dL 8.4 - 10. 4 mg/dL [place], [place] Chloride [Moles/Vol] 106 mmol/L 98 - 10 7 mmol/L [place] EGFR IF NonAfrican [place]ian 58.2 mL/min Abnormal >60 [place], [place] Comment on above: KDIGO guidelines pro vide the following GFR categories: Stage GFR(ml/min/1.73 m2) Terms G1 >=90 Normal or high G2 60-89 Mildly decreased* G3a 45-59 Mildly to moderately decreased G3b 30-44 Moderately to severely decreased G4 15-29 Severely decreased G5 <15 Kidney failure *Relative to young adult level. In the absence of evidence of kidney damage, neither GFR category G1 nor G2 fulfill the criteria for CKD. The CKD-EPI equation is validated in individuals 18 years of age and older. Currently the best equation for estimating glomerular filtration rate (GFR) from serum creatinine in children is the Bedside Pelletier equation. It is less accurate in patients with extremes of muscle mass, restriction of dietary protein, ingestion of creatine, extra-renal metabolism of creatinine, or treatment with medications that affect renal tubular creatinine secretion. Glucose [Mass/Vol] 108 mg/dL High 70 - 100 mg/dL [place], [place] Potassium [Moles/Vol] 4.1 mmol/L 3.5 - 5.1 mmol/L [place] Sodium [Moles/Vol] 135 mmol/L 135 - 145 mmol/L [place], [place] Urea nitrogen [Mass/Vol] 34 mg/dL High 7 - 20 mg/dL [place], [place] Calcium [Mass/Vol] 9.3 mg/dL Normal 8.4-10.4 [facility] Comment on above: Performed By: #### B MP3, MG3, LFT3 ####[address] [place] [address] Glucose [Mass/Vol] 63 mg/dL Low 70-100 [facility] Comment on above: Performed By: #### B MP3, MG3, LFT3 ####[address] [place] [address] Urea nitrogen [Mass/Vol] 36 mg/dL High 7-20 [facility] Comment on above: Performed By: #### B MP3, MG3, LFT3 ####[address] [place] [address] Anion Gap 2 Normal [facility] Comment on above: Performed By: #### B MP3, MG3, LFT3 ####[address] [place] [address] CO2 [Moles/Vol] 25 mmol/L Normal 22-30 [facility] Comment on above: Performed By: #### B MP3, MG3, LFT3 ####[address] [place] [address] Creatinine [Mass/Vol] 1.19 mg/dL Normal 0.52-1.25 [facility] Comment on above: Performed By: #### B MP3, MG3, LFT3 ####[address] [place] [address] GFR/1.73 sq M.predicted among blacks MDRD (S/P/Bld) [Vol rate/Area] 66.0 mL/min/{1.73_m2} Normal >60 [facility] Comment on above: Performed By: #### B MP3, MG3, LFT3 ####[address] [place] [address] GFR/1.73 sq M.predicted among non-blacks MDRD (S/P/Bld) [Vol rate/Area] 57.0 mL/min/{1.73_m2} Abnormal >60 [facility] Comment on above: Result Comment: KDIG O guidelines provide the following GFR categories:Stage GFR(ml/min/1.73 m2) TermsG1 >=90 Normal or highG2 60-89 Mildly decreased*G3a 45-59 Mildly to moderately [id number] 30-44 Moderately to severely decreasedG4 15-29 Severely decreasedG5 <15 Kidney failure*Relative to young adult level.In the absence of evidence of kidney damage, neither GFRcategory G1 nor G2 fulfill the criteria for CKD.The CKD-EPI equation is validated in individuals 18 yearsof age and older. Currently the best equation forestimating glomerular filtration rate (GFR) from serumcreatinine in children is the Bedside Pelletier equation.It is less accurate in patients with extremes of musclemass, restriction of dietary protein, ingestion of creatine,extra-renal metabolism of creatinine, or treatment withmedications that affect renal tubular creatinine secretion. Performed By: #### B MP3, MG3, LFT3 ####[facility] [id number] [place] [address] Potassium [Moles/Vol] 4.1 mmol/L Normal 3.5-5.1 [facility] Comment on above: Performed By: #### B MP3, MG3, LFT3 ####[facility] [id number] [place] [address] Sodium [Moles/Vol] 137 mmol/L Normal 135-145 [facility] Comment on above: Performed By: #### Hi MP3, MG3, LFT3 ####[facility] [id number] [place] [address] Chloride [Moles/Vol] 109 mmol/L High 98-107 [facility] Comment on above: Performed By: #### B MP3, MG3, LFT3 ####[facility] [address] [address] Anion gap [Moles/Vol] 2 mmol/L [facility], [place] Calcium [Mass/Vol] 9.3 mg/dL 8.4 - 10. 4 mg/dL [facility], [place] Chloride [Moles/Vol] 109 mmol/L High 98 - 10 7 mmol/L [facility], [place] CO2 [Moles/Vol] 25 mmol/L 22 - 30 mmol/L [place] Creatinine [Mass/Vol] 1.19 mg/dL 0.52 - 1.25 mg/dL [place] EGFR IF NonAfrican [place]ian 57.0 mL/min Abnormal >60 [place], [place] Comment on above: KDIGO guidelines pro vide the following GFR categories: Stage GFR(ml/min/1.73 m2) Terms G1 >=90 Normal or high G2 60-89 Mildly decreased* G3a 45-59 Mildly to moderately decreased G3b 30-44 Moderately to severely decreased G4 15-29 Severely decreased G5 <15 Kidney failure *Relative to young adult level. In the absence of evidence of kidney damage, neither GFR category G1 nor G2 fulfill the criteria for CKD. The CKD-EPI equation is validated in individuals 18 years of age and older. Currently the best equation for estimating glomerular filtration rate (GFR) from serum creatinine in children is the Bedside Pelletier equation. It is less accurate in patients with extremes of muscle mass, restriction of dietary protein, ingestion of creatine, extra-renal metabolism of creatinine, or treatment with medications that affect renal tubular creatinine secretion. GFR/1.73 sq M predicted among blacks MDRD (S/P/Bld) [Vol rate/Area] 66.0 mL/min/{1.73_m2} >60 [place], [place] Glucose [Mass/Vol] 63 mg/dL Low 70 - 100 mg/dL [place] Potassium [Moles/Vol] 4.1 mmol/L 3.5 - 5.1 mmol/L [place] Sodium [Moles/Vol] 137 mmol/L 135 - 145 mmol/L [place], [place] Urea nitrogen [Mass/Vol] 36 mg/dL High 7 - 20 mg/dL [place], [place] Blood Gas, Arterialon 2019 Base Excess, Arterial -1.1 mmol/L -3 - 3 mmol/L [place] HCO3, Arterial 23.4 mmol/L 21 - 25 mmol/L [place] Hemoglobin (Bld) [Mass/Vol] 8.3 g/dL ScreenOnly [place], [place] Interpretation and review of laboratory results Abnormal [place], [place] Oxygen saturation in Blood 93.9 % Low 95 - 100 % [place] pCO2, Arterial 37.9 mm[Hg] 35 - 45 mm[Hg] [facility], [place] pH, Arterial 7.408 [facility], [place] pO2, Arterial 73.3 mm[Hg] Low 80 - 100 mm[Hg] [facility], [place] Sodium [Moles/Vol] No data [facility], [place] TCO2, Arterial 24.5 mmol/L 23 - 27 mmol/L [facility], [place] Base Excess, Arterial 0.4 mmol/L -3 - 3 mmol/L [facility], [place] HCO3, Arterial 25.6 mmol/L High 21 - 25 mmol/L [place], [place] Hemoglobin (Bld) [Mass/Vol] 7.9 g/dL [facility] [place] Interpretation and review of laboratory results Abnormal [place] Oxygen saturation in Blood 96.0 % 95 - 100 % [place] pCO2, Arterial 43.6 mm[Hg] 35 - 45 mm[Hg] [facility], [place] pH, Arterial 7.386 [place] pO2, Arterial 89.3 mm[Hg] 80 - 100 mm[Hg] [place] Sodium [Moles/Vol] No data [place] TCO2, Arterial 26.9 mmol/L 23 - 27 mmol/L [place] Test Performed by [facility], [address] [place] [address] [place], [place] Base Excess, Arterial -0.2 mmol/L -3 - 3 mmol/L [facility], [place] HCO3, Arterial 23.6 mmol/L 21 - 25 mmol/L [place] Hemoglobin (Bld) [Mass/Vol] 8.5 g/dL [facility] [place] Interpretation and review of laboratory results Abnormal [place] Oxygen saturation in Blood 97.1 % 95 - 100 % [place] pCO2, Arterial 35.0 mm[Hg] 35 - 45 mm[Hg] [facility], [place] pH, Arterial 7.447 [place] pO2, Arterial 105.0 mm[Hg] High 80 - 100 mm[Hg] [place] Sodium [Moles/Vol] No data [place] TCO2, Arterial 24.7 mmol/L 23 - 27 mmol/L [place] Test Performed by [address] [address] [place] Base Excess, Arterial 1.4 mmol/L -3 - 3 mmol/L [place] HCO3, Arterial 25.1 mmol/L High 21 - 25 mmol/L [place] Hemoglobin (Bld) [Mass/Vol] 8.6 g/dL [facility] [place] Interpretation and review of laboratory results Abnormal [place] Oxygen saturation in Blood 96.5 % 95 - 100 % [place] pCO2, Arterial 35.3 mm[Hg] 35 - 45 mm[Hg] [place] pH, Arterial 7.469 High [place] pO2, Arterial 91.7 mm[Hg] 80 - 100 mm[Hg] [place] Sodium [Moles/Vol] no data [place] TCO2, Arterial 26.1 mmol/L 23 - 27 mmol/L [place] Test Performed by [address] [address] [place], [place] CBC Auto Differentialon 03-15 Absolute Baso # 0.0 10*3/uL 0 - 0.2 10*3/uL [place], [place] Absolute Neut # 5.5 10*3/uL 1.8 - 7 10*3/uL [place], [place] Basophils/100 WBC (Bld) 0.1 % 0 - 2 % [place] Eosinophils (Bld) [#/Vol] 0.0 10*3/uL 0 - 0.5 10*3/uL [place] Eosinophils/100 WBC (Bld) 0.2 % Low 1 - 6 % [place] Erythrocyte distribution width (RBC) [Ratio] 15.6 % High 11.5 - 14.5 % [place] Granulocytes/100 WBC (Bld) 73.2 % 40 - 80 % [place] Hematocrit (Bld) [Volume fraction] 22.7 % Low 40 - 52 % [place] Hemoglobin (Bld) [Mass/Vol] 7.9 g/dL Low 13 - 18 g/dL [place] Interpretation and review of laboratory results Abnormal [place] Lymphocytes (Bld) [#/Vol] 1.2 10*3/uL 1 - 4.3 10*3/uL [place] Lymphocytes/100 WBC (Bld) 15.6 % Low 20 - 40 % [place] MCH (RBC) [Entitic mass] 30.4 pg 26 - 34 pg [place] MCHC (RBC) [Mass/Vol] 34.6 % 32 - 36 % [place] MCV (RBC) [Entitic vol] 87.7 fL 80 - 98 fL [place] Monocytes (Bld) [#/Vol] 0.8 10*3/uL 0 - 0.8 10*3/uL [place], [place] Monocytes/100 WBC (Bld) 10.9 % High 2 - 10 % [place] Platelet mean volume (Bld) [Entitic vol] 9.4 fL 7.4 - 10.4 fL [place] Platelets (Bld) [#/Vol] 46 10*3/uL Low 140 - 440 10*3/uL [place] RBC (Bld) [#/Vol] 2.59 10*6/uL Low 4.4 - 5.9 10*6/uL [place] WBC (Bld) [#/Vol] 7.6 10*3/uL 3.6 - 10.7 10*3/uL [place] Test Performed by [facility], [address] [place] [address] [place] Absolute Baso # 0.0 10*3/uL 0 - 0.2 10*3/uL [place] Absolute Neut # 7.2 10*3/uL High 1.8 - 7 10*3/uL [place], [place] Basophils/100 WBC (Bld) 0.3 % 0 - 2 % [place] Eosinophils (Bld) [#/Vol] 0.0 10*3/uL 0 - 0.5 10*3/uL [place] Eosinophils/100 WBC (Bld) 0.4 % Low 1 - 6 % [place] Erythrocyte distribution width (RBC) [Ratio] 15.2 % High 11.5 - 14.5 % [place] Granulocytes/100 WBC (Bld) 70.8 % 40 - 80 % [place] Hematocrit (Bld) [Volume fraction] 19.7 % Low 40 - 52 % [place] Hemoglobin (Bld) [Mass/Vol] 6.8 g/dL Critically low 13 - 18 g/dL [place] Interpretation and review of laboratory results Abnormal [place] Lymphocytes (Bld) [#/Vol] 1.7 10*3/uL 1 - 4.3 10*3/uL [place] Lymphocytes/100 WBC (Bld) 16.7 % Low 20 - 40 % [place] MCH (RBC) [Entitic mass] 29.9 pg 26 - 34 pg [place] MCHC (RBC) [Mass/Vol] 34.7 % 32 - 36 % [place] MCV (RBC) [Entitic vol] 86.2 fL 80 - 98 fL [place] Monocytes (Bld) [#/Vol] 1.2 10*3/uL High 0 - 0.8 10*3/uL [place] Monocytes/100 WBC (Bld) 11.8 % High 2 - 10 % [place] Platelet mean volume (Bld) [Entitic vol] 9.6 fL 7.4 - 10.4 fL [place] Platelets (Bld) [#/Vol] 67 10*3/uL Low 140 - 440 10*3/uL [place] RBC (Bld) [#/Vol] 2.28 10*6/uL Low 4.4 - 5.9 10*6/uL [place] WBC (Bld) [#/Vol] 10.2 10*3/uL 3.6 - 10.7 10*3/uL [place] Test Performed by [facility], [address] [place] [address] [place] Absolute Baso # 0.0 10*3/uL 0 - 0.2 10*3/uL [place] Absolute Neut # 8.3 10*3/uL High 1.8 - 7 10*3/uL [place] Basophils/100 WBC (Bld) 0.4 % 0 - 2 % [place] Eosinophils (Bld) [#/Vol] 0.0 10*3/uL 0 - 0.5 10*3/uL [place] Eosinophils/100 WBC (Bld) 0.2 % Low 1 - 6 % [place] Erythrocyte distribution width (RBC) [Ratio] 14.9 % High 11.5 - 14.5 % [place] Granulocytes/100 WBC (Bld) 73.9 % 40 - 80 % [place] Hematocrit (Bld) [Volume fraction] 23.5 % Low 40 - 52 % [place] Hemoglobin (Bld) [Mass/Vol] 8.0 g/dL Low 13 - 18 g/dL [place] Lymphocytes (Bld) [#/Vol] 1.7 10*3/uL 1 - 4.3 10*3/uL [place] Lymphocytes/100 WBC (Bld) 15.3 % Low 20 - 40 % [place] MCH (RBC) [Entitic mass] 29.5 pg 26 - 34 pg [place] MCHC (RBC) [Mass/Vol] 34.1 % 32 - 36 % [place] MCV (RBC) [Entitic vol] 86.4 fL 80 - 98 fL [place] Monocytes (Bld) [#/Vol] 1.1 10*3/uL High 0 - 0.8 10*3/uL [place] Monocytes/100 WBC (Bld) 10.2 % High 2 - 10 % [place] Platelet mean volume (Bld) [Entitic vol] 9.7 fL 7.4 - 10.4 fL [place] Platelets (Bld) [#/Vol] 74 10*3/uL Low 140 - 440 10*3/uL [place] RBC (Bld) [#/Vol] 2.72 10*6/uL Low 4.4 - 5.9 10*6/uL [place] WBC (Bld) [#/Vol] 11.2 10*3/uL High 3.6 - 10.7 10*3/uL [place] Absolute Baso # 0.0 10*3/uL 0 - 0.2 10*3/uL [place] Absolute Neut # 6.9 10*3/uL 1.8 - 7 10*3/uL [place] Basophils/100 WBC (Bld) 0.3 % 0 - 2 % [place] Eosinophils (Bld) [#/Vol] 0.0 10*3/uL 0 - 0.5 10*3/uL [place] Eosinophils/100 WBC (Bld) 0.2 % Low 1 - 6 % [place] Erythrocyte distribution width (RBC) [Ratio] 14.9 % High 11.5 - 14.5 % [place] Granulocytes/100 WBC (Bld) 65.3 % 40 - 80 % [place] Hematocrit (Bld) [Volume fraction] 22.8 % Low 40 - 52 % [place] Hemoglobin (Bld) [Mass/Vol] 8.0 g/dL Low 13 - 18 g/dL [place] Interpretation and review of laboratory results Abnormal [place] Lymphocytes (Bld) [#/Vol] 2.3 10*3/uL 1 - 4.3 10*3/uL [place] Lymphocytes/100 WBC (Bld) 21.6 % 20 - 40 % [place] MCH (RBC) [Entitic mass] 29.9 pg 26 - 34 pg [place] MCHC (RBC) [Mass/Vol] 35.0 % 32 - 36 % [place] MCV (RBC) [Entitic vol] 85.3 fL 80 - 98 fL [place] Monocytes (Bld) [#/Vol] 1.3 10*3/uL High 0 - 0.8 10*3/uL [place], [place] Monocytes/100 WBC (Bld) 12.6 % High 2 - 10 % [place] Platelet mean volume (Bld) [Entitic vol] 9.1 fL 7.4 - 10.4 fL [place] Platelets (Bld) [#/Vol] 69 10*3/uL Low 140 - 440 10*3/uL [place] RBC (Bld) [#/Vol] 2.68 10*6/uL Low 4.4 - 5.9 10*6/uL [place] WBC (Bld) [#/Vol] 10.5 10*3/uL 3.6 - 10.7 10*3/uL [place] Test Performed by [facility], [address] [place] [address] [place] CKon 03-28-2020 CK [Catalytic activity/Vol] 306 U/L High 30-170 [facility] Comment on above: Performed By: #### H APTO, CK3, LDH3 ####[facility] [place] [address] Total CK 306 U/L High 30 - 170 U/L [place], [place] CR Chest Portableon 03-28-20 20 CR Chest Portable Normal [facility] Calcium, Ionizedon 0 Ionized Ca 4.50 mg/dL 4.3 - 5.2 mg/dL [place] pH (Bld) 7.41 [pH] [place] Ionized Ca 4.60 mg/dL 4.3 - 5.2 mg/dL [place] pH (Bld) 7.39 [pH] [place] Test Performed by [facility], [address] [place] [address] [place] Ionized Ca 4.70 mg/dL 4.3 - 5.2 mg/dL [place] pH (Bld) 7.46 [pH] [place] Test Performed by [facility], [facility] [place] [address] [place], [place] Interpretation and review of laboratory results Abnormal [place] Ionized Ca 5.10 mg/dL 4.3 - 5.2 mg/dL [place], [place] pH (Bld) 7.48 [pH] High [place] Calcium,Ionizedon 03-28-2020 Ionized Ca,Measured 4.50 mg/dL Normal 4.30-5.20 [facility] Comment on above: Performed By: #### P T/AP, LACT3, HEMDF, LFT3, FIBGN, ABG, BMP3, ICA ####[address] [address] pH, Ionized Calcium 7.41 Normal 7.31-7.46 [facility] Comment on above: Performed By: #### P T/AP, LACT3, HEMDF, LFT3, FIBGN, ABG, BMP3, ICA ####[address] Ionized Ca,Measured 4.60 mg/dL Normal 4.30-5.20 [facility] Comment on above: Performed By: #### P T/AP, HEMDF, FIBGN, ABG, BMP3, LACT3, LFT3, ICA ####[address] pH, Ionized Calcium 7.39 Normal 7.31-7.46 [facility] Comment on above: Performed By: #### P T/AP, HEMDF, FIBGN, ABG, BMP3, LACT3, LFT3, ICA ####[address] [address] Ionized Ca,Measured 4.70 mg/dL Normal 4.30-5.20 [facility] Comment on above: Performed By: #### F IBGN, PT/AP, HEMDF, ICA, LACT3, LFT3, ABG, BMP3, LAURIE ####[address] pH, Ionized Calcium 7.46 Normal 7.31-7.46 [facility] Comment on above: Performed By: #### F IBGN, PT/AP, HEMDF, ICA, LACT3, LFT3, ABG, BMP3, LAURIE ####[address] Ionized Ca,Measured 5.10 mg/dL Normal 4.30-5.20 [facility] Comment on above: Performed By: #### I CA, HEMDF, PT/AP, FIBGN, LACT3, ABG ####[address] pH, Ionized Calcium 7.48 High 7.31-7.46 [facility] Comment on above: Performed By: #### I CA, HEMDF, PT/AP, FIBGN, LACT3, ABG ####[address] Complete Urinalysison 2019 Amorphous Crystal Few Abnormal Negative [facility] Comment on above: Result Comment: . Performed By: #### M SO ####[facility] GENERIC SENDOUT#### CUA2 ####[address] Appearance (U) Turbid Abnormal Clear [facility] Comment on above: Result Comment: . Performed By: #### M SO ####[facility] GENERIC SENDOUT#### CUA2 ####[address] Bacteria LM.HPF (Urine sed) [#/Area] Negative Normal Negative [facility] Comment on above: Result Comment: . Performed By: #### M SO ####[facility] GENERIC SENDOUT#### CUA2 ####[address] Bilirubin,Urine 1 mg/dL Abnormal Negative [facility] Comment on above: Result Comment: . Performed By: #### M SO ####[facility] GENERIC SENDOUT#### CUA2 ####[facility] [id number] [place], [place] Cast, Granular 11 - 25 Abnormal Negative [facility] Comment on above: Result Comment: . Performed By: #### M SO ####MSO GENERIC SENDOUT#### CUA2 ####[facility] [id number] [place], [place] Cast, Hyaline Negative Normal Negative [facility] Comment on above: Result Comment: . Performed By: #### M SO ####[facility] GENERIC SENDOUT#### CUA2 ####[facility] [id number] [place] [address] Color (U) Dark-Yellow Abnormal Lt. Yellow [facility] Comment on above: Result Comment: . Performed By: #### M SO ####[facility] GENERIC SENDOUT#### CUA2 ####[facility] [id number] [place] [address] Glucose Ql (U) Normal Normal Normal (<70) [facility] Comment on above: Result Comment: . Performed By: #### M SO ####MSO GENERIC SENDOUT#### CUA2 ####[address] Ketone,Urine Negative Normal Negative [facility] Comment on above: Result Comment: . Performed By: #### M SO ####MSO GENERIC SENDOUT#### CUA2 ####[facility] [address] [place], [place] Leukocytes,Urine 25 Dangelo/uL [facility] Comment on above: Result Comment: . Performed By: #### M SO ####MSO GENERIC SENDOUT#### CUA2 ####[facility] [address] [place], [place] Mucous Threads Few Normal Negative [facility] Comment on above: Result Comment: . Performed By: #### M SO ####MSO GENERIC SENDOUT#### CUA2 ####[facility] [id number] [place] [address] Nitrites,Urine Negative Normal Negative [facility] Comment on above: Result Comment: . Performed By: #### M SO ####MSO GENERIC SENDOUT#### CUA2 ####[address] [place], [place] Occult Blood,Urine 0.03 mg/dL Abnormal Negative [facility] Comment on above: Result Comment: . Performed By: #### M SO ####MSO GENERIC SENDOUT#### CUA2 ####[address] [address] [address] [place], [place] pH,Urine 5.0 Normal 5.0-8.0 [facility] Comment on above: Result Comment: . Performed By: #### M SO ####MSO GENERIC SENDOUT#### CUA2 ####[address] [place], [place] Protein (U) [Mass/Vol] 30 mg/dL Abnormal Negative [facility] Comment on above: Result Comment: . Performed By: #### M SO ####MSO GENERIC SENDOUT#### CUA2 ####[address] [place], [place] RBC, Urine 0 - 2 Normal 0-2 [facility] Comment on above: Result Comment: . Performed By: #### M SO ####MSO GENERIC SENDOUT#### CUA2 ####[address] [place], [place] Specific [place],Urine 1.027 Normal 1.005 - 1.030 [facility] Comment on above: Result Comment: . Performed By: #### M SO ####MSO GENERIC SENDOUT#### CUA2 ####[address] [place], [place] Squamous Epithelial 0 - 2 Normal 3-5 [facility] Comment on above: Result Comment: . Performed By: #### M SO ####MSO GENERIC SENDOUT#### CUA2 ####[address] [place], [place] Urobilinogen,Urine Normal Normal Normal (0-1) [facility] Comment on above: Result Comment: . Performed By: #### M SO ####MSO GENERIC SENDOUT#### CUA2 ####[address] [place], [place] WBC, Urine 6 - 10 Abnormal 0-5 [facility] Comment on above: Result Comment: . Performed By: #### M SO ####MSO GENERIC SENDOUT#### CUA2 ####[address] [place], [place] Cortisolon 03-28-2020 Cortisol 22.3 ug/dL Normal [facility] Comment on above: Result Comment: Befo re 10am 4.5-22.7 ug/dLAfter 5pm 1.7-14.1 ug/dL Performed By: #### A BG, HEMDF, BMP3, PT/AP, LACT3, CORTL, LFT3, FIBGN, PHOS3 ####[address] [place], [place] Fibrinogenon 03-28-2020 Fibrinogen 447 mg/dL High 200 - 400 mg/dL [facility], [place] Fibrinogen 423 mg/dL High 200-400 [facility] Comment on above: Performed By: #### P T/AP, HEMDF, FIBGN, ABG, BMP3, LACT3, LFT3, ICA ####[address] [place], [place] Fibrinogen 423 mg/dL High 200 - 400 mg/dL [facility], [place] Fibrinogen 421 mg/dL High 200-400 [facility] [place] Comment on above: Performed By: #### F IBGN, PT/AP, HEMDF, ICA, LACT3, LFT3, ABG, BMP3, LAURIE ####[address] [place], [place] Fibrinogen 363 mg/dL Normal 200-400 [facility] Comment on above: Performed By: #### I CA, HEMDF, PT/AP, FIBGN, LACT3, ABG ####[address] [facility] [address] Fibrinogen 363 mg/dL 200 - 400 mg/dL [facility], [place] Glucose,Bedsideon 03-28-2020 Glucose [Mass/Vol] 88 mg/dL Normal 70-100 [facility] Comment on above: Result Comment: Test performed by glucose meter. Results may be 10%-15% lowerthan serum/plasma values. (CLIA ID [id number]) Performed By: #### B GLU ####[facility] [id number] [facility] [place] [address] Glucose [Mass/Vol] 90 mg/dL Normal 70-100 [facility] Comment on above: Result Comment: Test performed by glucose meter. Results may be 10%-15% lowerthan serum/plasma values. (CLIA ID [id number]) Performed By: #### B GLU ####[facility] [id number] [place] [address] Glucose [Mass/Vol] 111 mg/dL High 70-100 [facility] Comment on above: Result Comment: Test performed by glucose meter. Results may be 10%-15% lowerthan serum/plasma values. (CLIA ID [id number]) Performed By: #### B GLU ####[facility] [address] [place] [address] Glucose [Mass/Vol] 89 mg/dL Normal 70-100 [facility] Comment on above: Result Comment: Test performed by glucose meter. Results may be 10%-15% lowerthan serum/plasma values. (CLIA ID [id number]) Performed By: #### B GLU ####[facility] [address] [facility] [address] Glucose [Mass/Vol] 101 mg/dL High 70-100 [facility] Comment on above: Result Comment: Test performed by glucose meter. Results may be 10%-15% lowerthan serum/plasma values. (CLIA ID [id number]) Performed By: #### B GLU ####[employer] [address] [facility] [address] Glucose [Mass/Vol] 119 mg/dL High 70-100 [facility] Comment on above: Result Comment: Test performed by glucose meter. Results may be 10%-15% lowerthan serum/plasma values. (CLIA ID [id number]) Performed By: #### B GLU ####[employer] [facility] [address] Glucose [Mass/Vol] 88 mg/dL Normal 70-100 [facility] Comment on above: Result Comment: Test performed by glucose meter. Results may be 10%-15% lowerthan serum/plasma values. (CLIA ID [id number]) Performed By: #### B GLU ####[address] [facility] [address] Glucose [Mass/Vol] 75 mg/dL Normal 70-100 [facility] Comment on above: Result Comment: Test performed by glucose meter. Results may be 10%-15% lowerthan serum/plasma values. (CLIA ID [id number]) Performed By: #### B GLU ####[address] [facility] [place] [address] Glucose [Mass/Vol] 72 mg/dL Normal 70-100 [facility] Comment on above: Result Comment: Test performed by glucose meter. Results may be 10%-15% lowerthan serum/plasma values. (CLIA ID [id number]) Performed By: #### B GLU ####[address] [facility] [address] Glucose [Mass/Vol] 51 mg/dL Low 70-100 [facility] Comment on above: Result Comment: Test performed by glucose meter. Results may be 10%-15% lowerthan serum/plasma values. (CLIA ID [id number]) Performed By: #### B GLU ####[address] [facility] [place] [address] Glucose [Mass/Vol] 69 mg/dL Low 70-100 [facility] Comment on above: Result Comment: Test performed by glucose meter. Results may be 10%-15% lowerthan serum/plasma values. (CLIA ID [id number]) Performed By: #### B GLU ####[employer] [address] [place] [address] Glucose [Mass/Vol] 87 mg/dL Normal 70-100 [facility] Comment on above: Result Comment: Test performed by glucose meter. Results may be 10%-15% lowerthan serum/plasma values. (CLIA ID [id number]) Performed By: #### B GLU ####[employer] [address] [place] [address] Glucose [Mass/Vol] 110 mg/dL High 70-100 [facility] Comment on above: Result Comment: Test performed by glucose meter. Results may be 10%-15% lowerthan serum/plasma values. (CLIA ID [id number]) Performed By: #### B GLU ####[address] [place] [address] Glucose [Mass/Vol] 128 mg/dL High 70-100 [facility] Comment on above: Result Comment: Test performed by glucose meter. Results may be 10%-15% lowerthan serum/plasma values. (CLIA ID [id number]) Performed By: #### B GLU ####[employer] [place] [address] Glucose [Mass/Vol] 133 mg/dL High 70-100 [facility] Comment on above: Result Comment: Test performed by glucose meter. Results may be 10%-15% lowerthan serum/plasma values. (CLIA ID [id number]) Performed By: #### B GLU ####[employer] [address] [place] [address] Glucose [Mass/Vol] 150 mg/dL High 70-100 [facility] Comment on above: Result Comment: Test performed by glucose meter. Results may be 10%-15% lowerthan serum/plasma values. (CLIA ID [id number]) Performed By: #### B GLU ####[employer] [address] [place] [address] Glucose [Mass/Vol] 124 mg/dL High 70-100 [facility] Comment on above: Result Comment: Test performed by glucose meter. Results may be 10%-15% lowerthan serum/plasma values. (CLIA ID [id number]) Performed By: #### B GLU ####[address] [facility] [address] Glucose [Mass/Vol] 110 mg/dL High 70-100 [facility] Comment on above: Result Comment: Test performed by glucose meter. Results may be 10%-15% lowerthan serum/plasma values. (CLIA ID [id number]) Performed By: #### B GLU ####[employer] [place] [address] Glucose [Mass/Vol] 54 mg/dL Low 70-100 [facility] Comment on above: Result Comment: Test performed by glucose meter. Results may be 10%-15% lowerthan serum/plasma values. (CLIA ID [id number]) Performed By: #### B GLU ####[address] [facility] [place] [address] Glucose [Mass/Vol] 70 mg/dL Normal 70-100 [facility] Comment on above: Result Comment: Test performed by glucose meter. Results may be 10%-15% lowerthan serum/plasma values. (CLIA ID [id number]) Performed By: #### B GLU ####[employer] [place] [address] Glucose [Mass/Vol] 100 mg/dL Normal 70-100 [facility] Comment on above: Result Comment: Test performed by glucose meter. Results may be 10%-15% lowerthan serum/plasma values. (CLIA ID [id number]) Performed By: #### B GLU ####[address] [facility] [place] [address] Glucose [Mass/Vol] 92 mg/dL Normal 70-100 [facility] Comment on above: Result Comment: Test performed by glucose meter. Results may be 10%-15% lowerthan serum/plasma values. (CLIA ID [id number]) Performed By: #### B GLU ####[employer] [address] [place] [address] Glucose [Mass/Vol] 109 mg/dL High 70-100 [facility] Comment on above: Result Comment: Test performed by glucose meter. Results may be 10%-15% lowerthan serum/plasma values. (CLIA ID [id number]) Performed By: #### B GLU ####[facility] [address] [place] [address] Glucose [Mass/Vol] 115 mg/dL High 70-100 [facility] Comment on above: Result Comment: Test performed by glucose meter. Results may be 10%-15% lowerthan serum/plasma values. (CLIA ID [id number]) Performed By: #### B GLU ####[facility] [address] [place] [address] Haptoglobinon 03-28-2020 Haptoglobin 53.2 mg/dL Normal 30.0-200.0 [facility] Comment on above: Performed By: #### H APTO, CK3, LDH3 ####[facility] [address] [place] [address] Haptoglobin 53.2 mg/dL 30 - 200 mg/dL [place], [place] Hematologyon 03-28-2020 ABO and Rh group Nom (Bld) 5100 [place], [place] ABO and Rh group Nom (Bld) 5100 [place], [place] Hemoglobin AND Hematocriton 03-28-2020 Hematocrit (Bld) [Volume fraction] 23.5 % Low 40.0-52.0 [facility] Comment on above: Performed By: #### H GHCT ####[facility] [id number] [place] [address] Hemoglobin (Bld) [Mass/Vol] 8.1 g/dL Low 13.0-18.0 [facility] Comment on above: Performed By: #### H GHCT ####[facility] [id number] [place] [address] Hemoglobin and Hematocrit, B loodon 03-28-2020 Hematocrit (Bld) [Volume fraction] 23.5 % Low 40 - 52 % [place], [place] Hemoglobin (Bld) [Mass/Vol] 8.1 g/dL Low 13 - 18 g/dL [place], [place] Interpretation and review of laboratory results Abnormal [place], [place] Test Performed by [facility], [address], [place] [address] [place], [place] Hemogram w/ Autodiffon 03-28 Abs Baso Cnt 0.0 10*3/uL Normal 0.0-0.2 [facility] Comment on above: Performed By: #### P T/AP, LACT3, HEMDF, LFT3, FIBGN, ABG, BMP3, ICA ####[address] Abs Neutrophile Cnt 5.5 10*3/uL Normal 1.8-7.0 [facility] Comment on above: Performed By: #### P T/AP, LACT3, HEMDF, LFT3, FIBGN, ABG, BMP3, ICA ####[address] Basophils/100 WBC (Bld) 0.1 % Normal 0.0-2.0 [facility] Comment on above: Performed By: #### P T/AP, LACT3, HEMDF, LFT3, FIBGN, ABG, BMP3, ICA ####[address] Eosinophils (Bld) [#/Vol] 0.0 10*3/uL Normal 0.0-0.5 [facility] Comment on above: Performed By: #### P T/AP, LACT3, HEMDF, LFT3, FIBGN, ABG, BMP3, ICA ####[address] Eosinophils/100 WBC (Bld) 0.2 % Low 1.0-6.0 [facility] Comment on above: Performed By: #### P T/AP, LACT3, HEMDF, LFT3, FIBGN, ABG, BMP3, ICA ####[address], [place] Erythrocyte distribution width (RBC) [Ratio] 15.6 % High 11.5-14.5 [facility] Comment on above: Performed By: #### P T/AP, LACT3, HEMDF, LFT3, FIBGN, ABG, BMP3, ICA ####[address] Granulocytes/100 WBC (Bld) 73.2 % Normal 40.0-80.0 [facility] Comment on above: Performed By: #### P T/AP, LACT3, HEMDF, LFT3, FIBGN, ABG, BMP3, ICA ####[address] Hematocrit (Bld) [Volume fraction] 22.7 % Low 40.0-52.0 [facility] Comment on above: Performed By: #### P T/AP, LACT3, HEMDF, LFT3, FIBGN, ABG, BMP3, ICA ####[address] Hemoglobin (Bld) [Mass/Vol] 7.9 g/dL Low 13.0-18.0 [facility] Comment on above: Performed By: #### P T/AP, LACT3, HEMDF, LFT3, FIBGN, ABG, BMP3, ICA ####[address] Lymphocytes (Bld) [#/Vol] 1.2 10*3/uL Normal 1.0-4.3 [facility] Comment on above: Performed By: #### P T/AP, LACT3, HEMDF, LFT3, FIBGN, ABG, BMP3, ICA ####[address] Lymphocytes/100 WBC (Bld) 15.6 % Low 20.0-40.0 [facility] Comment on above: Performed By: #### P T/AP, LACT3, HEMDF, LFT3, FIBGN, ABG, BMP3, ICA ####[address] MCH (RBC) [Entitic mass] 30.4 pg Normal 26.0-34.0 [facility] Comment on above: Performed By: #### P T/AP, LACT3, HEMDF, LFT3, FIBGN, ABG, BMP3, ICA ####[address] [place], [place] MCHC 34.6 % Normal 32.0-36.0 [facility] Comment on above: Performed By: #### P T/AP, LACT3, HEMDF, LFT3, FIBGN, ABG, BMP3, ICA ####[address] MCV (RBC) [Entitic vol] 87.7 fL Normal 80.0-98.0 [facility] Comment on above: Performed By: #### P T/AP, LACT3, HEMDF, LFT3, FIBGN, ABG, BMP3, ICA ####[address] Monocytes (Bld) [#/Vol] 0.8 10*3/uL Normal 0.0-0.8 [facility] Comment on above: Performed By: #### P T/AP, LACT3, HEMDF, LFT3, FIBGN, ABG, BMP3, ICA ####[address] Monocytes/100 WBC (Bld) 10.9 % High 2.0-10.0 [facility] Comment on above: Performed By: #### P T/AP, LACT3, HEMDF, LFT3, FIBGN, ABG, BMP3, ICA ####[address] Platelet mean volume (Bld) [Entitic vol] 9.4 fL Normal 7.4-10.4 [facility] Comment on above: Performed By: #### P T/AP, LACT3, HEMDF, LFT3, FIBGN, ABG, BMP3, ICA ####[address] Platelets (Bld) [#/Vol] 46 10*3/uL Low 140-440 [facility] Comment on above: Performed By: #### P T/AP, LACT3, HEMDF, LFT3, FIBGN, ABG, BMP3, ICA ####[address] RBC (Bld) [#/Vol] 2.59 10*6/uL Low 4.40-5.90 [facility] Comment on above: Performed By: #### P T/AP, LACT3, HEMDF, LFT3, FIBGN, ABG, BMP3, ICA ####[address] WBC (Bld) [#/Vol] 7.6 10*3/uL Normal 3.6-10.7 [facility] Comment on above: Performed By: #### P T/AP, LACT3, HEMDF, LFT3, FIBGN, ABG, BMP3, ICA ####[address] Abs Baso Cnt 0.0 10*3/uL Normal 0.0-0.2 [facility] Comment on above: Performed By: #### P T/AP, HEMDF, FIBGN, ABG, BMP3, LACT3, LFT3, ICA ####[address] Abs Neutrophile Cnt 7.2 10*3/uL High 1.8-7.0 [facility] Comment on above: Performed By: #### P T/AP, HEMDF, FIBGN, ABG, BMP3, LACT3, LFT3, ICA ####[address] Basophils/100 WBC (Bld) 0.3 % Normal 0.0-2.0 [facility] Comment on above: Performed By: #### P T/AP, HEMDF, FIBGN, ABG, BMP3, LACT3, LFT3, ICA ####[address] Eosinophils (Bld) [#/Vol] 0.0 10*3/uL Normal 0.0-0.5 [facility] Comment on above: Performed By: #### P T/AP, HEMDF, FIBGN, ABG, BMP3, LACT3, LFT3, ICA ####[address] Eosinophils/100 WBC (Bld) 0.4 % Low 1.0-6.0 [facility] Comment on above: Performed By: #### P T/AP, HEMDF, FIBGN, ABG, BMP3, LACT3, LFT3, ICA ####[address] Erythrocyte distribution width (RBC) [Ratio] 15.2 % High 11.5-14.5 [facility] Comment on above: Performed By: #### P T/AP, HEMDF, FIBGN, ABG, BMP3, LACT3, LFT3, ICA ####[address] Granulocytes/100 WBC (Bld) 70.8 % Normal 40.0-80.0 [facility] Comment on above: Performed By: #### P T/AP, HEMDF, FIBGN, ABG, BMP3, LACT3, LFT3, ICA ####[address] Hematocrit (Bld) [Volume fraction] 19.7 % Low 40.0-52.0 [facility] Comment on above: Performed By: #### P T/AP, HEMDF, FIBGN, ABG, BMP3, LACT3, LFT3, ICA ####[address] Hemoglobin (Bld) [Mass/Vol] 6.8 g/dL Critically low 13.0-18.0 [facility] Comment on above: Performed By: #### P T/AP, HEMDF, FIBGN, ABG, BMP3, LACT3, LFT3, ICA ####[address] Lymphocytes (Bld) [#/Vol] 1.7 10*3/uL Normal 1.0-4.3 [facility] Comment on above: Performed By: #### P T/AP, HEMDF, FIBGN, ABG, BMP3, LACT3, LFT3, ICA ####[address] Lymphocytes/100 WBC (Bld) 16.7 % Low 20.0-40.0 [facility] Comment on above: Performed By: #### P T/AP, HEMDF, FIBGN, ABG, BMP3, LACT3, LFT3, ICA ####[address] MCH (RBC) [Entitic mass] 29.9 pg Normal 26.0-34.0 [facility] Comment on above: Performed By: #### P T/AP, HEMDF, FIBGN, ABG, BMP3, LACT3, LFT3, ICA ####[address] MCHC 34.7 % Normal 32.0-36.0 [facility] Comment on above: Performed By: #### P T/AP, HEMDF, FIBGN, ABG, BMP3, LACT3, LFT3, ICA ####[address] MCV (RBC) [Entitic vol] 86.2 fL Normal 80.0-98.0 [facility] Comment on above: Performed By: #### P T/AP, HEMDF, FIBGN, ABG, BMP3, LACT3, LFT3, ICA ####[address] Monocytes (Bld) [#/Vol] 1.2 10*3/uL High 0.0-0.8 [facility] Comment on above: Performed By: #### P T/AP, HEMDF, FIBGN, ABG, BMP3, LACT3, LFT3, ICA ####[address] Monocytes/100 WBC (Bld) 11.8 % High 2.0-10.0 [facility] Comment on above: Performed By: #### P T/AP, HEMDF, FIBGN, ABG, BMP3, LACT3, LFT3, ICA ####[address] [address] [place], [place] Platelet mean volume (Bld) [Entitic vol] 9.6 fL Normal 7.4-10.4 [facility] Comment on above: Performed By: #### P T/AP, HEMDF, FIBGN, ABG, BMP3, LACT3, LFT3, ICA ####[address] Platelets (Bld) [#/Vol] 67 10*3/uL Low 140-440 [facility] Comment on above: Performed By: #### P T/AP, HEMDF, FIBGN, ABG, BMP3, LACT3, LFT3, ICA ####[address] RBC (Bld) [#/Vol] 2.28 10*6/uL Low 4.40-5.90 [facility] Comment on above: Performed By: #### P T/AP, HEMDF, FIBGN, ABG, BMP3, LACT3, LFT3, ICA ####[address] WBC (Bld) [#/Vol] 10.2 10*3/uL Normal 3.6-10.7 [facility] Comment on above: Performed By: #### P T/AP, HEMDF, FIBGN, ABG, BMP3, LACT3, LFT3, ICA ####[address] Abs Baso Cnt 0.0 10*3/uL Normal 0.0-0.2 [facility] Comment on above: Performed By: #### F IBGN, PT/AP, HEMDF, ICA, LACT3, LFT3, ABG, BMP3, LAURIE ####[address] Abs Neutrophile Cnt 8.3 10*3/uL High 1.8-7.0 [facility] Comment on above: Performed By: #### F IBGN, PT/AP, HEMDF, ICA, LACT3, LFT3, ABG, BMP3, LAURIE ####[address] Basophils/100 WBC (Bld) 0.4 % Normal 0.0-2.0 [facility] Comment on above: Performed By: #### F IBGN, PT/AP, HEMDF, ICA, LACT3, LFT3, ABG, BMP3, LAURIE ####[address] Eosinophils (Bld) [#/Vol] 0.0 10*3/uL Normal 0.0-0.5 [facility] Comment on above: Performed By: #### F IBGN, PT/AP, HEMDF, ICA, LACT3, LFT3, ABG, BMP3, LAURIE ####[address] Eosinophils/100 WBC (Bld) 0.2 % Low 1.0-6.0 [facility] Comment on above: Performed By: #### F IBGN, PT/AP, HEMDF, ICA, LACT3, LFT3, ABG, BMP3, LAURIE ####[address] Erythrocyte distribution width (RBC) [Ratio] 14.9 % High 11.5-14.5 [facility] Comment on above: Performed By: #### F IBGN, PT/AP, HEMDF, ICA, LACT3, LFT3, ABG, BMP3, LAURIE ####[address] [place], [place] Granulocytes/100 WBC (Bld) 73.9 % Normal 40.0-80.0 [facility] Comment on above: Performed By: #### F IBGN, PT/AP, HEMDF, ICA, LACT3, LFT3, ABG, BMP3, LAURIE ####[address] Hematocrit (Bld) [Volume fraction] 23.5 % Low 40.0-52.0 [facility] Comment on above: Performed By: #### F IBGN, PT/AP, HEMDF, ICA, LACT3, LFT3, ABG, BMP3, LAURIE ####[address] Hemoglobin (Bld) [Mass/Vol] 8.0 g/dL Low 13.0-18.0 [facility] Comment on above: Performed By: #### F IBGN, PT/AP, HEMDF, ICA, LACT3, LFT3, ABG, BMP3, LAURIE ####[address] [place], [place] Lymphocytes (Bld) [#/Vol] 1.7 10*3/uL Normal 1.0-4.3 [facility] Comment on above: Performed By: #### F IBGN, PT/AP, HEMDF, ICA, LACT3, LFT3, ABG, BMP3, LAURIE ####[address] [place], [place] Lymphocytes/100 WBC (Bld) 15.3 % Low 20.0-40.0 [facility] Comment on above: Performed By: #### F IBGN, PT/AP, HEMDF, ICA, LACT3, LFT3, ABG, BMP3, LAURIE ####[address] MCH (RBC) [Entitic mass] 29.5 pg Normal 26.0-34.0 [facility] Comment on above: Performed By: #### F IBGN, PT/AP, HEMDF, ICA, LACT3, LFT3, ABG, BMP3, LAURIE ####[address] [place], [place] MCHC 34.1 % Normal 32.0-36.0 [facility] Comment on above: Performed By: #### F IBGN, PT/AP, HEMDF, ICA, LACT3, LFT3, ABG, BMP3, LAURIE ####[address] [place], [place] MCV (RBC) [Entitic vol] 86.4 fL Normal 80.0-98.0 [facility] Comment on above: Performed By: #### F IBGN, PT/AP, HEMDF, ICA, LACT3, LFT3, ABG, BMP3, LAURIE ####[id number] [place], [place] Monocytes (Bld) [#/Vol] 1.1 10*3/uL High 0.0-0.8 [facility] Comment on above: Performed By: #### F IBGN, PT/AP, HEMDF, ICA, LACT3, LFT3, ABG, BMP3, LAURIE ####[address] Monocytes/100 WBC (Bld) 10.2 % High 2.0-10.0 [facility] Comment on above: Performed By: #### F IBGN, PT/AP, HEMDF, ICA, LACT3, LFT3, ABG, BMP3, LAURIE ####[id number] [place], [place] Platelet mean volume (Bld) [Entitic vol] 9.7 fL Normal 7.4-10.4 [facility] Comment on above: Performed By: #### F IBGN, PT/AP, HEMDF, ICA, LACT3, LFT3, ABG, BMP3, LAURIE ####[id number] [place], [place] Platelets (Bld) [#/Vol] 74 10*3/uL Low 140-440 [facility] Comment on above: Performed By: #### F IBGN, PT/AP, HEMDF, ICA, LACT3, LFT3, ABG, BMP3, LAURIE ####[address] [place], [place] RBC (Bld) [#/Vol] 2.72 10*6/uL Low 4.40-5.90 [facility] Comment on above: Performed By: #### F IBGN, PT/AP, HEMDF, ICA, LACT3, LFT3, ABG, BMP3, LAURIE ####[address] [place], [place] WBC (Bld) [#/Vol] 11.2 10*3/uL High 3.6-10.7 [facility] Comment on above: Performed By: #### F IBGN, PT/AP, HEMDF, ICA, LACT3, LFT3, ABG, BMP3, LAURIE ####[address] [place], [place] Abs Baso Cnt 0.0 10*3/uL Normal 0.0-0.2 [facility] Comment on above: Performed By: #### I CA, HEMDF, PT/AP, FIBGN, LACT3, ABG ####[address] Abs Neutrophile Cnt 6.9 10*3/uL Normal 1.8-7.0 [facility] Comment on above: Performed By: #### I CA, HEMDF, PT/AP, FIBGN, LACT3, ABG ####[address] [place], [place] Basophils/100 WBC (Bld) 0.3 % Normal 0.0-2.0 [facility] Comment on above: Performed By: #### I CA, HEMDF, PT/AP, FIBGN, LACT3, ABG ####[address] [place], [place] Eosinophils (Bld) [#/Vol] 0.0 10*3/uL Normal 0.0-0.5 [facility] Comment on above: Performed By: #### I CA, HEMDF, PT/AP, FIBGN, LACT3, ABG ####[address] [place], [place] Eosinophils/100 WBC (Bld) 0.2 % Low 1.0-6.0 [facility] Comment on above: Performed By: #### I CA, HEMDF, PT/AP, FIBGN, LACT3, ABG ####[address] Erythrocyte distribution width (RBC) [Ratio] 14.9 % High 11.5-14.5 [facility] Comment on above: Performed By: #### I CA, HEMDF, PT/AP, FIBGN, LACT3, ABG ####[address] Granulocytes/100 WBC (Bld) 65.3 % Normal 40.0-80.0 [facility] Comment on above: Performed By: #### I CA, HEMDF, PT/AP, FIBGN, LACT3, ABG ####[address] Hematocrit (Bld) [Volume fraction] 22.8 % Low 40.0-52.0 [facility] Comment on above: Performed By: #### I CA, HEMDF, PT/AP, FIBGN, LACT3, ABG ####[address] Hemoglobin (Bld) [Mass/Vol] 8.0 g/dL Low 13.0-18.0 [facility] Comment on above: Performed By: #### I CA, HEMDF, PT/AP, FIBGN, LACT3, ABG ####[address] Lymphocytes (Bld) [#/Vol] 2.3 10*3/uL Normal 1.0-4.3 [facility] Comment on above: Performed By: #### I CA, HEMDF, PT/AP, FIBGN, LACT3, ABG ####[address] Lymphocytes/100 WBC (Bld) 21.6 % Normal 20.0-40.0 [facility] Comment on above: Performed By: #### I CA, HEMDF, PT/AP, FIBGN, LACT3, ABG ####[address] [place], [place] MCH (RBC) [Entitic mass] 29.9 pg Normal 26.0-34.0 [facility] Comment on above: Performed By: #### I CA, HEMDF, PT/AP, FIBGN, LACT3, ABG ####[address] [place], [place] MCHC 35.0 % Normal 32.0-36.0 [facility] Comment on above: Performed By: #### I CA, HEMDF, PT/AP, FIBGN, LACT3, ABG ####[address] [place], [place] MCV (RBC) [Entitic vol] 85.3 fL Normal 80.0-98.0 [facility] Comment on above: Performed By: #### I CA, HEMDF, PT/AP, FIBGN, LACT3, ABG ####[address] [place], [place] Monocytes (Bld) [#/Vol] 1.3 10*3/uL High 0.0-0.8 [facility] Comment on above: Performed By: #### I CA, HEMDF, PT/AP, FIBGN, LACT3, ABG ####[address] [place], [place] Monocytes/100 WBC (Bld) 12.6 % High 2.0-10.0 [facility] Comment on above: Performed By: #### I CA, HEMDF, PT/AP, FIBGN, LACT3, ABG ####[address] [place], [place] Platelet mean volume (Bld) [Entitic vol] 9.1 fL Normal 7.4-10.4 [facility] Comment on above: Performed By: #### I CA, HEMDF, PT/AP, FIBGN, LACT3, ABG ####[address] [place], [place] Platelets (Bld) [#/Vol] 69 10*3/uL Low 140-440 [facility] Comment on above: Performed By: #### I CA, HEMDF, PT/AP, FIBGN, LACT3, ABG ####[address] [place], [place] RBC (Bld) [#/Vol] 2.68 10*6/uL Low 4.40-5.90 [facility] Comment on above: Performed By: #### I CA, HEMDF, PT/AP, FIBGN, LACT3, ABG ####[address] [place], [place] WBC (Bld) [#/Vol] 10.5 10*3/uL Normal 3.6-10.7 [facility] Comment on above: Performed By: #### I CA, HEMDF, PT/AP, FIBGN, LACT3, ABG ####[address] [place], [place] Hepatic Functionon 202 0 ALP [Catalytic activity/Vol] 35 U/L Low 38-126 [facility] Comment on above: Performed By: #### P T/AP, HEMDF, FIBGN, ABG, BMP3, LACT3, LFT3, ICA ####[address] [place], [place] ALT [Catalytic activity/Vol] 13 U/L Normal 0-49 [facility] Comment on above: Result Comment: The ALT test is performed by an updated assay method.Please note that the reference intervals have beenchanged and are now sex specific. Performed By: #### P T/AP, HEMDF, FIBGN, ABG, BMP3, LACT3, LFT3, ICA ####[address] [place], [place] AST [Catalytic activity/Vol] 39 U/L Normal 15-46 [facility] Comment on above: Performed By: #### P T/AP, HEMDF, FIBGN, ABG, BMP3, LACT3, LFT3, ICA ####[address] [place], [place] Bilirubin [Mass/Vol] 6.6 mg/dL High 0.2-1.3 [facility] Comment on above: Performed By: #### P T/AP, HEMDF, FIBGN, ABG, BMP3, LACT3, LFT3, ICA ####[address] [place], [place] Bilirubin.indirect [Mass/Vol] 3.5 mg/dL High 0.0-0.3 [facility] Comment on above: Performed By: #### P T/AP, HEMDF, FIBGN, ABG, BMP3, LACT3, LFT3, ICA ####[address] [place], [place] Protein [Mass/Vol] 4.9 g/dL Low 6.3-8.2 [facility] Comment on above: Performed By: #### P T/AP, HEMDF, FIBGN, ABG, BMP3, LACT3, LFT3, ICA ####[address] [place], [place] Albumin [Mass/Vol] 2.7 g/dL Low 3.5-5.0 [facility] Comment on above: Performed By: #### P T/AP, HEMDF, FIBGN, ABG, BMP3, LACT3, LFT3, ICA ####[address] [place] ALP [Catalytic activity/Vol] 37 U/L Low 38-126 [facility] Comment on above: Performed By: #### F IBGN, PT/AP, HEMDF, ICA, LACT3, LFT3, ABG, BMP3, LAURIE ####[address] [place], [place] ALT [Catalytic activity/Vol] 13 U/L Normal 0-49 [facility] Comment on above: Result Comment: The ALT test is performed by an updated assay method.Please note that the reference intervals have beenchanged and are now sex specific. Performed By: #### F IBGN, PT/AP, HEMDF, ICA, LACT3, LFT3, ABG, BMP3, LAURIE ####[address] [place], [place] AST [Catalytic activity/Vol] 39 U/L Normal 15-46 [facility] Comment on above: Performed By: #### F IBGN, PT/AP, HEMDF, ICA, LACT3, LFT3, ABG, BMP3, LAURIE ####[address] [place], [place] Bilirubin [Mass/Vol] 6.0 mg/dL High 0.2-1.3 [facility] Comment on above: Performed By: #### F IBGN, PT/AP, HEMDF, ICA, LACT3, LFT3, ABG, BMP3, LAURIE ####[address] [place], [place] Bilirubin.indirect [Mass/Vol] 2.8 mg/dL High 0.0-0.3 [facility] Comment on above: Performed By: #### F IBGN, PT/AP, HEMDF, ICA, LACT3, LFT3, ABG, BMP3, LAURIE ####[address] [place], [place] Albumin [Mass/Vol] 2.7 g/dL Low 3.5-5.0 [facility] Comment on above: Performed By: #### F IBGN, PT/AP, HEMDF, ICA, LACT3, LFT3, ABG, BMP3, LAURIE ####[address] Protein [Mass/Vol] 5.0 g/dL Low 6.3-8.2 [place] Comment on above: Performed By: #### F IBGN, PT/AP, HEMDF, ICA, LACT3, LFT3, ABG, BMP3, LAURIE ####[address] [place] ALP [Catalytic activity/Vol] 33 U/L Low 38-126 [facility] Comment on above: Performed By: #### B MP3, MG3, LFT3 ####[address] [place], [place] ALT [Catalytic activity/Vol] 13 U/L Normal 0-49 [facility] Comment on above: Result Comment: The ALT test is performed by an updated assay method.Please note that the reference intervals have beenchanged and are now sex specific. Performed By: #### B MP3, MG3, LFT3 ####[address] [place], [place] AST [Catalytic activity/Vol] 53 U/L High 15-46 [facility] Comment on above: Performed By: #### B MP3, MG3, LFT3 ####[address] [place], [place] Bilirubin [Mass/Vol] 6.2 mg/dL High 0.2-1.3 [facility] Comment on above: Performed By: #### B MP3, MG3, LFT3 ####[address] [place], [place] Bilirubin.indirect [Mass/Vol] 2.4 mg/dL High 0.0-0.3 [facility] Comment on above: Performed By: #### B MP3, MG3, LFT3 ####[address] [place], [place] Protein [Mass/Vol] 4.6 g/dL Low 6.3-8.2 [facility] Comment on above: Performed By: #### B MP3, MG3, LFT3 ####[address] [place] Albumin [Mass/Vol] 2.5 g/dL Low 3.5-5.0 [facility] Comment on above: Performed By: #### B MP3, MG3, LFT3 ####[address] [place], [place] Hepatic Function Panelon Albumin [Mass/Vol] 3.2 g/dL Low 3.5 - 5 g/dL [facility], [place] ALP [Catalytic activity/Vol] 34 U/L Low 38 - 126 U/L [place], [place] ALT [Catalytic activity/Vol] 14 U/L 0 - 49 U/L [place] Comment on above: The ALT test is perf ormed by an updated assay method. Please note that the reference intervals have been changed and are now sex specific. AST [Catalytic activity/Vol] 39 U/L 15 - 46 U/L [place] Bilirubin Ql (U) 8.0 mg/dL High 0.2 - 1.3 mg/dL [place] Bilirubin.direct [Mass/Vol] 4.2 mg/dL High 0 - 0.3 mg/dL [place] Protein [Mass/Vol] 5.2 g/dL Low 6.3 - 8.2 g/dL [place] Albumin [Mass/Vol] 2.7 g/dL Low 3.5 - 5 g/dL [place], [place] ALP [Catalytic activity/Vol] 35 U/L Low 38 - 126 U/L [place] ALT [Catalytic activity/Vol] 13 U/L 0 - 49 U/L [place] Comment on above: The ALT test is perf ormed by an updated assay method. Please note that the reference intervals have been changed and are now sex specific. AST [Catalytic activity/Vol] 39 U/L 15 - 46 U/L [place] Bilirubin Ql (U) 6.6 mg/dL High 0.2 - 1.3 mg/dL [place] Bilirubin.direct [Mass/Vol] 3.5 mg/dL High 0 - 0.3 mg/dL [place] Protein [Mass/Vol] 4.9 g/dL Low 6.3 - 8.2 g/dL [place] Albumin [Mass/Vol] 2.7 g/dL Low 3.5 - 5 g/dL [place] ALP [Catalytic activity/Vol] 37 U/L Low 38 - 126 U/L [place] ALT [Catalytic activity/Vol] 13 U/L 0 - 49 U/L [place] Comment on above: The ALT test is perf ormed by an updated assay method. Please note that the reference intervals have been changed and are now sex specific. AST [Catalytic activity/Vol] 39 U/L 15 - 46 U/L [place] Bilirubin Ql (U) 6.0 mg/dL High 0.2 - 1.3 mg/dL [place] Bilirubin.direct [Mass/Vol] 2.8 mg/dL High 0 - 0.3 mg/dL [place] Albumin [Mass/Vol] 2.5 g/dL Low 3.5 - 5 g/dL [place] ALP [Catalytic activity/Vol] 33 U/L Low 38 - 126 U/L [place] ALT [Catalytic activity/Vol] 13 U/L 0 - 49 U/L [place] Comment on above: The ALT test is perf ormed by an updated assay method. Please note that the reference intervals have been changed and are now sex specific. AST [Catalytic activity/Vol] 53 U/L High 15 - 46 U/L [place] Bilirubin Ql (U) 6.2 mg/dL High 0.2 - 1.3 mg/dL [place] Bilirubin.direct [Mass/Vol] 2.4 mg/dL High 0 - 0.3 mg/dL [place] Protein [Mass/Vol] 4.6 g/dL Low 6.3 - 8.2 g/dL [place], [place] LDHon 03-28-2020 LDH 283 U/L High 120-246 [facility] Comment on above: Performed By: #### H APTO, CK3, LDH3 ####[facility] [id number] [address] Lactate Dehydrogenaseon 03-15 LD 283 U/L High 120 - 246 U/L [place], [place] Lactic Acidon 03-28-2020 Lactate [Moles/Vol] 0.9 mmol/L Normal 0.7-2.0 [facility] Comment on above: Performed By: #### P T/AP, HEMDF, FIBGN, ABG, BMP3, LACT3, LFT3, ICA ####[facility] [id number] [address] Lactate [Moles/Vol] 1.2 mmol/L Normal 0.7-2.0 [facility] Comment on above: Performed By: #### F IBGN, PT/AP, HEMDF, ICA, LACT3, LFT3, ABG, BMP3, LAURIE ####[address] Lactate [Moles/Vol] 1.0 mmol/L Normal 0.7-2.0 [facility] Comment on above: Performed By: #### P T/AP, LACT3, HEMDF, LFT3, FIBGN, ABG, BMP3, ICA ####[address] Performed By: #### I CA, HEMDF, PT/AP, FIBGN, LACT3, ABG ####[address] Lactic Acid, Plasmaon 2019 Lactate [Moles/Vol] 1 mmol/L 0.7 - 2 mmol/L [facility], [place] Test Performed by [facility], [address] [place] [address], [place] Lactate [Moles/Vol] 0.9 mmol/L 0.7 - 2 mmol/L [facility], [place] Test Performed by [facility], [address] [place] [address], [place] Lactate [Moles/Vol] 1.2 mmol/L 0.7 - 2 mmol/L [facility], [place] Test Performed by [facility], [address] [place] [address] Lactate [Moles/Vol] 1 mmol/L 0.7 - 2 mmol/L [facility], [place] Leukodepleted Red Cellson Leukodepleted Red Cells Normal [facility] Comment on above: Performed By: #### T SGL ####[address]#### LRC ####[address] [address]#### ABID ####[facility] Leukodepleted Red Cells Normal [facility] Comment on above: Performed By: #### A JORGE ####[address] [place], [place] [address]#### LRC ####[address] [place] [address] Leukodepleted Red Cells Normal [facility] Comment on above: Performed By: #### A JORGE ####[address] [place], [place] [address]#### LRC ####[address] [place] [address] Magnesiumon 03-28-2020 Magnesium [Mass/Vol] 2.0 mg/dL Normal 1.6-2.3 [facility] Comment on above: Performed By: #### B MP3, MG3, LFT3 ####[address] [place], [place] Magnesium [Mass/Vol] 2.0 mg/dL 1.6 - 2 .3 mg/dL [facility], [place] Metabolic Panelon 03-28-2020 Sodium [Moles/Vol] transfused [facility], [place] Sodium [Moles/Vol] [id number] [place], [place] Sodium [Moles/Vol] Positive [place] Sodium [Moles/Vol] [id number] [place] Sodium [Moles/Vol] [id number] mmol/L [place] Sodium [Moles/Vol] released [place], [place] Miscellaneous Referred Testo n 03-28-2020 Performed By: see below Normal [facility] Comment on above: Result Comment: DEVORAH CHAVIRA Performed By: #### M SO ####[facility] [employer]#### CUA2 ####[address] [place], [place] Test Name free hemo Plasm Normal [facility] Comment on above: Performed By: #### M SO ####[employer] GENERIC SENDOUT#### CUA2 ####[facility] [address] [place] [address] Otheron 03-28-2020 Interpretation and review of laboratory results Abnormal [facility] [place] Test Performed by [facility], [address] [place] [address] [facility] Interpretation and review of laboratory results Abnormal [facility] Test Performed by [facility], [address] [place] [address] [facility] Test Performed by [facility], [address] [place] [address] [facility] Interpretation and review of laboratory results Abnormal [facility] Test Performed by [facility], [address] [place] [address] [facility] Interpretation and review of laboratory results Abnormal [facility] Test Performed by [facility], [address] [place] [address] [facility] Test Performed by [facility], [facility] [address] [place] [address] [facility] Interpretation and review of laboratory results Abnormal [facility] Test Performed by [facility], [address] [place] [address] [facility] Interpretation and review of laboratory results Abnormal [facility] Test Performed by [facility], [address] [place] [address] [facility] Interpretation and review of laboratory results Abnormal [facility] Test Performed by [facility], [address] [place] [address] [facility] Interpretation and review of laboratory results Abnormal [facility] Test Performed by [facility], [address] [place] [address] [facility] Test Performed by [facility], [address] [place] [address] [facility] [place] Test Performed by [facility], [address] [place] [address] [facility] PERIPHERAL SMEARon 0 PERIPHERAL SMEAR see below Normal [facility] Comment on above: Result Comment: See report under Surgical Pathology. Performed By: #### F IBGN, PT/AP, HEMDF, ICA, LACT3, LFT3, ABG, BMP3, LAURIE ####[facility] [address] [place] [address] POCT Glucoseon 03-28-2020 Glucose [Mass/Vol] 107 mg/dL High 70 - 100 mg/dL [facility], [place] Comment on above: Test performed by gl ucose meter. Results may be 10%-15% lower than serum/plasma values. (CLIA ID [id number]) Interpretation and review of laboratory results Abnormal [facility], [place] Test Performed by [facility], [address] [place] [address] [place], [place] Glucose [Mass/Vol] 94 mg/dL 70 - 100 mg/dL [place] Comment on above: Test performed by gl ucose meter. Results may be 10%-15% lower than serum/plasma values. (CLIA ID [id number]) Test Performed by [facility], [address] [place] [address] [place], [place] Glucose [Mass/Vol] 88 mg/dL 70 - 100 mg/dL [place] Comment on above: Test performed by gl ucose meter. Results may be 10%-15% lower than serum/plasma values. (CLIA ID [id number]) Test Performed by [facility], [address] [place] [address] [place], [place] Glucose [Mass/Vol] 90 mg/dL 70 - 100 mg/dL [place] Comment on above: Test performed by gl ucose meter. Results may be 10%-15% lower than serum/plasma values. (CLIA ID [id number]) Test Performed by [facility], [address] [place] [address] [facility], [place] Glucose [Mass/Vol] 111 mg/dL High 70 - 100 mg/dL [facility], [place] Comment on above: Test performed by gl ucose meter. Results may be 10%-15% lower than serum/plasma values. (CLIA ID [id number]) Interpretation and review of laboratory results Abnormal [facility] Test Performed by [facility], [address] [place] [address] [facility] Glucose [Mass/Vol] 89 mg/dL 70 - 100 mg/dL [facility] Comment on above: Test performed by gl ucose meter. Results may be 10%-15% lower than serum/plasma values. (CLIA ID [id number]) Test Performed by [facility], [address] [place] [address] [facility] Glucose [Mass/Vol] 101 mg/dL High 70 - 100 mg/dL [facility] Comment on above: Test performed by gl ucose meter. Results may be 10%-15% lower than serum/plasma values. (CLIA ID [id number]) Interpretation and review of laboratory results Abnormal [facility] [place] Test Performed by [facility], [address] [place] [address] [facility] Glucose [Mass/Vol] 119 mg/dL High 70 - 100 mg/dL [facility] [place] Comment on above: Test performed by gl ucose meter. Results may be 10%-15% lower than serum/plasma values. (CLIA ID [id number]) Interpretation and review of laboratory results Abnormal [facility] [place] Test Performed by [facility], [address] [place] [address] [facility] Glucose [Mass/Vol] 88 mg/dL 70 - 100 mg/dL [facility] [place] Comment on above: Test performed by gl ucose meter. Results may be 10%-15% lower than serum/plasma values. (CLIA ID [id number]) Test Performed by [facility], [address] [place] [address] [facility] Glucose [Mass/Vol] 75 mg/dL 70 - 100 mg/dL [facility] Comment on above: Test performed by gl ucose meter. Results may be 10%-15% lower than serum/plasma values. (CLIA ID [id number]) Test Performed by [facility], [address] [place] [address] [facility] [place] Glucose [Mass/Vol] 72 mg/dL 70 - 100 mg/dL [facility] [place] Comment on above: Test performed by gl ucose meter. Results may be 10%-15% lower than serum/plasma values. (CLIA ID [id number]) Test Performed by [facility], [address] [place] [address] [facility] [place] Glucose [Mass/Vol] 51 mg/dL Low 70 - 100 mg/dL [facility] [place] Comment on above: Test performed by gl ucose meter. Results may be 10%-15% lower than serum/plasma values. (CLIA ID [id number]) Interpretation and review of laboratory results Abnormal [facility] [place] Test Performed by [facility], [address] [place] [address] [facility] Glucose [Mass/Vol] 69 mg/dL Low 70 - 100 mg/dL [facility] Comment on above: Test performed by gl ucose meter. Results may be 10%-15% lower than serum/plasma values. (CLIA ID [id number]) Interpretation and review of laboratory results Abnormal [facility] [place] Test Performed by [facility], [address] [place] [address] [facility] Glucose [Mass/Vol] 87 mg/dL 70 - 100 mg/dL [facility] Comment on above: Test performed by gl ucose meter. Results may be 10%-15% lower than serum/plasma values. (CLIA ID [id number]) Test Performed by [facility], [address] [place] [address] [facility] [place] Glucose [Mass/Vol] 110 mg/dL High 70 - 100 mg/dL [facility] [place] Comment on above: Test performed by gl ucose meter. Results may be 10%-15% lower than serum/plasma values. (CLIA ID [id number]) Interpretation and review of laboratory results Abnormal [facility] [place] Glucose [Mass/Vol] 128 mg/dL High 70 - 100 mg/dL [facility] Comment on above: Test performed by gl ucose meter. Results may be 10%-15% lower than serum/plasma values. (CLIA ID [id number]) Interpretation and review of laboratory results Abnormal [facility] [place] Test Performed by [email or web address], [address] [place] [address] [facility] [place] Glucose [Mass/Vol] 133 mg/dL High 70 - 100 mg/dL [facility] [place] Comment on above: Test performed by gl ucose meter. Results may be 10%-15% lower than serum/plasma values. (CLIA ID [id number]) Interpretation and review of laboratory results Abnormal [facility] [place] Test Performed by [facility], [address] [place] [address] [facility] [place] Glucose [Mass/Vol] 150 mg/dL High 70 - 100 mg/dL [facility] [place] Comment on above: Test performed by gl ucose meter. Results may be 10%-15% lower than serum/plasma values. (CLIA ID [id number]) Interpretation and review of laboratory results Abnormal [facility] [place] Test Performed by [email or web address], [address] [place] [address] [facility] Glucose [Mass/Vol] 124 mg/dL High 70 - 100 mg/dL [facility] [place] Comment on above: Test performed by gl ucose meter. Results may be 10%-15% lower than serum/plasma values. (CLIA ID [id number]) Interpretation and review of laboratory results Abnormal [facility] Test Performed by [email or web address], [address] [place] [address] [facility] Glucose [Mass/Vol] 110 mg/dL High 70 - 100 mg/dL [facility] Comment on above: Test performed by gl ucose meter. Results may be 10%-15% lower than serum/plasma values. (CLIA ID [id number]) Interpretation and review of laboratory results Abnormal [facility] [facility] Test Performed by [email or web address], [address] [place] [address] [facility] [place] Glucose [Mass/Vol] 54 mg/dL Low 70 - 100 mg/dL [place], [place] Comment on above: Test performed by gl ucose meter. Results may be 10%-15% lower than serum/plasma values. (CLIA ID [id number]) Interpretation and review of laboratory results Abnormal [place], [place] Test Performed by [facility], [address] [place] [address] [place], [place] Glucose [Mass/Vol] 70 mg/dL 70 - 100 mg/dL [place], [place] Comment on above: Test performed by gl ucose meter. Results may be 10%-15% lower than serum/plasma values. (CLIA ID [id number]) Test Performed by [facility], [address], [place] [id number] [place] [address] Glucose [Mass/Vol] 100 mg/dL 70 - 100 mg/dL [place], [place] Comment on above: Test performed by gl ucose meter. Results may be 10%-15% lower than serum/plasma values. (CLIA ID [id number]) Test Performed by [facility], [address] [place] [address] [place], [place] Glucose [Mass/Vol] 92 mg/dL 70 - 100 mg/dL [place], [place] Comment on above: Test performed by gl ucose meter. Results may be 10%-15% lower than serum/plasma values. (CLIA ID [id number]) Test Performed by [facility], [address], [place] [id number] [place] [address] PREPARE RBC (CROSSMATCH)on 1 Blood product unit ID (Dose) [#] [id number] [place], [place] Blood product unit ID (Dose) [#] [id number] [place], [place] Sodium [Moles/Vol] [id number] mmol/L [place] Sodium [Moles/Vol] [id number] mmol/L [place], [place] PREPARE RBC (CROSSMATCH), 2 Unitson 03-28-2020 Blood product unit ID (Dose) [#] [id number] [place], [place] Blood product unit ID (Dose) [#] [id number] [place] PROTIME/INR & PTTon 10-14-20 20 aPTT Coag (Bld) [Time] 44.4 s High 20 - 30.5 s [place], [place] Comment on above: NOTE: The therapeuti c time for Heparin anticoagulation, based on Xa activity inhibition, is an APTT of 46-80 seconds. INR Coag (PPP) [Relative time] 1.2 {INR} [place], [place] Comment on above: Recommended Anticoag ulant Therapy: SEE BELOW ----- INR of 2.0 - 3.0 : - Prophylaxis of Venous Thrombosis (high-risk surgery) - Treatment of Venous Thrombosis - Treatment of Pulmonary Embolism (Includes tissue heart valves, Acute Myocardial Infarction to prevent systemic embolism, Valvular Heart Disease, and Atrial Fibrillation) ----- INR of 2.5 - 3.5 : - Mechanical Prosthetic Valves (high risk) - If oral anticoagulant therapy is used to prevent Myocardial Infarction PT Coag (PPP) [Time] 13.4 s High 9 - 12 s [place], [place] Comment on above: . aPTT Coag (Bld) [Time] 45.5 s High 20 - 30.5 s [place], [place] Comment on above: NOTE: The therapeuti c time for Heparin anticoagulation, based on Xa activity inhibition, is an APTT of 46-80 seconds. INR Coag (PPP) [Relative time] 1.3 {INR} [place], [place] Comment on above: Recommended Anticoag ulant Therapy: SEE BELOW ----- INR of 2.0 - 3.0 : - Prophylaxis of Venous Thrombosis (high-risk surgery) - Treatment of Venous Thrombosis - Treatment of Pulmonary Embolism (Includes tissue heart valves, Acute Myocardial Infarction to prevent systemic embolism, Valvular Heart Disease, and Atrial Fibrillation) ----- INR of 2.5 - 3.5 : - Mechanical Prosthetic Valves (high risk) - If oral anticoagulant therapy is used to prevent Myocardial Infarction PT Coag (PPP) [Time] 13.6 s High 9 - 12 s [place], [place] Comment on above: . INR Coag (PPP) [Relative time] 1.3 {INR} [place], [place] Comment on above: Recommended Anticoag ulant Therapy: SEE BELOW ----- INR of 2.0 - 3.0 : - Prophylaxis of Venous Thrombosis (high-risk surgery) - Treatment of Venous Thrombosis - Treatment of Pulmonary Embolism (Includes tissue heart valves, Acute Myocardial Infarction to prevent systemic embolism, Valvular Heart Disease, and Atrial Fibrillation) ----- INR of 2.5 - 3.5 : - Mechanical Prosthetic Valves (high risk) - If oral anticoagulant therapy is used to prevent Myocardial Infarction aPTT Coag (Bld) [Time] 45.5 s High 20 - 30.5 s [place], [place] Comment on above: NOTE: The therapeuti c time for Heparin anticoagulation, based on Xa activity inhibition, is an APTT of 46-80 seconds. INR Coag (PPP) [Relative time] 1.4 {INR} [place], [place] Comment on above: Recommended Anticoag ulant Therapy: SEE BELOW ----- INR of 2.0 - 3.0 : - Prophylaxis of Venous Thrombosis (high-risk surgery) - Treatment of Venous Thrombosis - Treatment of Pulmonary Embolism (Includes tissue heart valves, Acute Myocardial Infarction to prevent systemic embolism, Valvular Heart Disease, and Atrial Fibrillation) ----- INR of 2.5 - 3.5 : - Mechanical Prosthetic Valves (high risk) - If oral anticoagulant therapy is used to prevent Myocardial Infarction Interpretation and review of laboratory results Abnormal [place], [place] PT Coag (PPP) [Time] 15.1 s High 9 - 12 s [place], [place] Comment on above: . Path Review, Smearon 020 Sodium [Moles/Vol] see below [place], [place] Comment on above: See report under Je gical Pathology. Test Performed by [facility], [address] [place] [address] [place], [place] Phosphoruson 03-28-2020 Phosphate [Mass/Vol] 3.2 mg/dL Normal 2.5-4.5 [facility] Comment on above: Performed By: #### A BG, HEMDF, BMP3, PT/AP, LACT3, CORTL, LFT3, FIBGN, PHOS3 ####[address] [place], [place] Protime AND APTTon 0 aPTT Coag (Bld) [Time] 45.5 s High 20.0-30.5 [facility] Comment on above: Result Comment: NOTE : The therapeutic time for Heparin anticoagulation,based on Xa activity inhibition, is an APTT of 46-80seconds. Performed By: #### P T/AP, HEMDF, FIBGN, ABG, BMP3, LACT3, LFT3, ICA ####[address] [place], [place] INR 1.3 High 0.9-1.1 [facility] Comment on above: Result Comment: Ty mmended Anticoagulant Therapy: SEE BELOW----- INR of 2.0 - 3.0 : - Prophylaxis of Venous Thrombosis (high-risk surgery) - Treatment of Venous Thrombosis - Treatment of Pulmonary Embolism (Includes tissue heart valves, Acute Myocardial Infarction to prevent systemic embolism, Valvular Heart Disease, and Atrial Fibrillation)----- INR of 2.5 - 3.5 : - Mechanical Prosthetic Valves (high risk) - If oral anticoagulant therapy is used to prevent Myocardial Infarction Performed By: #### P T/AP, HEMDF, FIBGN, ABG, BMP3, LACT3, LFT3, ICA ####[address] Performed By: #### F IBGN, PT/AP, HEMDF, ICA, LACT3, LFT3, ABG, BMP3, LAURIE ####[address] [place], [place] PT Coag (PPP) [Time] 13.6 s High 9.0-12.0 [facility] Comment on above: Result Comment: . Performed By: #### P T/AP, HEMDF, FIBGN, ABG, BMP3, LACT3, LFT3, ICA ####[address] [place], [place] aPTT Coag (Bld) [Time] 44.7 s High 20.0-30.5 [facility] [place] Comment on above: NOTE: The therapeuti c time for Heparin anticoagulation, based on Xa activity inhibition, is an APTT of 46-80 seconds. Result Comment: NOTE : The therapeutic time for Heparin anticoagulation,based on Xa activity inhibition, is an APTT of 46-80seconds. Performed By: #### F IBGN, PT/AP, HEMDF, ICA, LACT3, LFT3, ABG, BMP3, LAURIE ####[id number] [place], [place] PT Coag (PPP) [Time] 13.9 s High 9.0-12.0 [place], [place] Comment on above: . Result Comment: . Performed By: #### F IBGN, PT/AP, HEMDF, ICA, LACT3, LFT3, ABG, BMP3, LAURIE ####[address] [place], [place] aPTT Coag (Bld) [Time] 45.5 s High 20.0-30.5 [facility] Comment on above: Result Comment: NOTE : The therapeutic time for Heparin anticoagulation,based on Xa activity inhibition, is an APTT of 46-80seconds. Performed By: #### I CA, HEMDF, PT/AP, FIBGN, LACT3, ABG ####[facility] [id number] [place], [place] INR 1.4 High 0.9-1.1 [facility] Comment on above: Result Comment: Ty mmended Anticoagulant Therapy: SEE BELOW----- INR of 2.0 - 3.0 : - Prophylaxis of Venous Thrombosis (high-risk surgery) - Treatment of Venous Thrombosis - Treatment of Pulmonary Embolism (Includes tissue heart valves, Acute Myocardial Infarction to prevent systemic embolism, Valvular Heart Disease, and Atrial Fibrillation)----- INR of 2.5 - 3.5 : - Mechanical Prosthetic Valves (high risk) - If oral anticoagulant therapy is used to prevent Myocardial Infarction Performed By: #### I CA, HEMDF, PT/AP, FIBGN, LACT3, ABG ####[facility] [id number] [place], [place] PT Coag (PPP) [Time] 15.1 s High 9.0-12.0 [facility] Comment on above: Result Comment: . Performed By: #### I CA, HEMDF, PT/AP, FIBGN, LACT3, ABG ####[address] [place] [id number] TS GELon 03-28-2020 TS GEL ABO Group: A Rh, Gel: POS Antibody Screen Gel: POS Normal [facility] Comment on above: Performed By: #### T SGL ####[address] [place], [place] [address]#### [facility] ####[address] [address]#### ABID ####[facility] TYPE AND SCREENon 03-28-2020 Sodium [Moles/Vol] A [facility], [place] Test Performed by [facility], [address] [place] [address] [facility], [place] US DOPPLER ABD/PEL/RETRO/LMT Don 03-28-2020 Prabhu, [facility] Incoming Radiology [facility] - 03/28/2020 3:15 PM EDT Patient Name: KAREN KEARNS ---Ultrasound--- Exam Date/Time 03/28/2020 10:30:00 EDT Exam US Art/Vein Abd/Pelvis/Scrotal Complete Ordering Physician HARINDER ARMENDARIZ, ESTELA Brewster Accession Number [id number] CPT4 Codes 13824 () Reason For Exam acute elevate bilirubin r/o portal venous clot Report HISTORY: Rule out portal venous clot Survey examination for evaluation of the liver vasculature is performed with duplex sonography. FINDINGS: 1. Hepatic artery, hepatic veins (left hepatic vein not visualized), portal venous system (left portal vein not visualized) show no abnormalities with patency and antegrade flow. 2. Mildly distended gallbladder with trace pericholecystic fluid with wall thickening and sludge with normal common bile duct diameter. 3. Multiple large upper abdominal cysts (largest 15 cm, some with debris, one with adjacent nonspecific 5 cm complex area) of uncertain etiology with trace amount of free intraperitoneal fluid--- consider CT for further evaluation (no old comparison studies available). Report Dictated on --- Final --- Dictated: 03/28/2020 3:06 pm Dictating Physician: MD WILKS WILLIAM Signed Date and Time: 03/28/2020 3:14 pm Signed by: MD WILKS WILLIAM Transcribed Date and Time: 03/28/2020 3:06 [facility], [place] Patient Name: KAREN KEARNS ---Ultrasound--- Exam Date/Time 03/28/2020 10:30:00 EDT Exam US Art/Vein Abd/Pelvis/Scrotal Complete Ordering Physician HARINDER ARMENDARIZ, ESTELA Brewster Accession Number [id number] CPT4 Codes 09746 () Reason For Exam acute elevate bilirubin r/o portal venous clot Report HISTORY: Rule out portal venous clot Survey examination for evaluation of the liver vasculature is performed with duplex sonography. FINDINGS: 1. Hepatic artery, hepatic veins (left hepatic vein not visualized), portal venous system (left portal vein not visualized) show no abnormalities with patency and antegrade flow. 2. Mildly distended gallbladder with trace pericholecystic fluid with wall thickening and sludge with normal common bile duct diameter. 3. Multiple large upper abdominal cysts (largest 15 cm, some with debris, one with adjacent nonspecific 5 cm complex area) of uncertain etiology with trace amount of free intraperitoneal fluid--- consider CT for further evaluation (no old comparison studies available). Report Dictated on --- Final --- Dictated: 03/28/2020 3:06 pm Dictating Physician: MD WILKS WILLIAM Signed Date and Time: 03/28/2020 3:14 pm Signed by: MD WILKS WILLIAM Transcribed Date and Time: 03/28/2020 3:06 [facility], [place] US Liver Doppleron 0 US Liver Doppler Normal [facility] Urinalysison 03-28-2020 AMORPHOUS CRYSTAL Few Abnormal Negative /[HPF] [place], [place] Comment on above: . Appearance (U) Turbid Abnormal Clear NA [place], [place] Comment on above: . Bacteria, UA Negative Negative /[HPF] [place] Comment on above: . Bilirubin Urine 1 mg/dL Abnormal Negative [place], [place] Comment on above: . Color (U) Dark-Yellow Abnormal Lt. Yellow NA [place], [place] Comment on above: . Glucose, Ur Normal Normal (<70) mg/dL [place], [place] Comment on above: . Granular Casts, UA 11-25 Abnormal Negative /[LPF] [place], [place] Comment on above: . Hyaline Casts, UA Negative Negative /[LPF] [place] Comment on above: . Interpretation and review of laboratory results Abnormal [place] Ketones Ql (U) Negative Negative mg/dL [place], [place] Comment on above: . LEUKOCYTES, UA 25 Abnormal Negative Dangelo/uL [place], [place] Comment on above: . Mucous Threads Few Negative /[LPF] [place], [place] Comment on above: . Nitrite, Urine Negative Negative NA [place], [place] Comment on above: . Occult Blood,Urine 0.03 mg/dL Abnormal Negative [place], [place] Comment on above: . pH (U) 5.0 [pH] [place], [place] Comment on above: . Protein (U) [Mass/Vol] 30 mg/dL Abnormal Negative [place], [place] Comment on above: . RBC (U) [#/Vol] 0-2 0 - 2 /[HPF] [place], [place] Comment on above: . Specific [place], Urine 1.027 [place], [place] Comment on above: . Squam Epithel, UA 0-2 3 - 5 /[HPF] [place] Comment on above: . Urobilinogen, Urine Normal Normal ( 0-1) mg/dL [place], [place] Comment on above: . WBC, UA 6-10 Abnormal 0 - 5 /[HPF] [place], [place] Comment on above: . Test Performed by [facility], [address] [place] [address] [place], [place] XR CHEST PORTABLEon 03-28-20 20 Prabhu, [facility] Incoming Radiology Results From [facility] - 03/28/2020 6:36 AM EDT Patient Name: KAREN KEARNS ---Diagnostic Radiology--- Exam Date/Time 03/28/2020 05:47:49 EDT Exam CR Chest Portable Ordering Physician [id number] HOLTANGELY Sandoval Accession Number [id number] CPT4 Codes 04984 () Reason For Exam Shortness of breath Report CLINICAL INFORMATION: Respiratory distress. Portable view of the chest at 0510 hours is provided and compared to a previous study dated March 27, 2020. FINDINGS: An endotracheal tube is seen with its tip approximately 5 cm above the bert. An enteric tube extends into the stomach. A Blair-Dhaval catheter is in place via the right internal jugular vein. The distal tip terminates in the pulmonary outflow tract. The patient is status post median sternotomy. Chest tubes are in place. There is no pneumothorax. There is mild bibasilar atelectasis. IMPRESSION: 1. Open heart surgery. 2. Chest tubes without pneumothorax. Report Dictated on Workstation: [id number] --- Final --- Dictated: 03/28/2020 6:34 am Dictating Physician: MD SCHAFFER JEFFREY Signed Date and Time: 03/28/2020 6:35 am Signed by: MD SCHAFFER JEFFREY Transcribed Date and Time: 03/28/2020 6:34 [place], [place] Patient Name: KAREN KEARNS ---Diagnostic Radiology--- Exam Date/Time 03/28/2020 05:47:49 EDT Exam CR Chest Portable Ordering Physician [id number] KaydenADRIANAANGELY Sandoval Accession Number [id number] CPT4 Codes 40048 () Reason For Exam Shortness of breath Report CLINICAL INFORMATION: Respiratory distress. Portable view of the chest at 0510 hours is provided and compared to a previous study dated March 27, 2020. FINDINGS: An endotracheal tube is seen with its tip approximately 5 cm above the bert. An enteric tube extends into the stomach. A Blair-Dhaval catheter is in place via the right internal jugular vein. The distal tip terminates in the pulmonary outflow tract. The patient is status post median sternotomy. Chest tubes are in place. There is no pneumothorax. There is mild bibasilar atelectasis. IMPRESSION: 1. Open heart surgery. 2. Chest tubes without pneumothorax. Report Dictated on Workstation: [id number] --- Final --- Dictated: 03/28/2020 6:34 am Dictating Physician: MD SCHAFFER JEFFREY Signed Date and Time: 03/28/2020 6:35 am Signed by: MD SCHAFFER JEFFREY Transcribed Date and Time: 03/28/2020 6:34 [place], [place] ABO Rh Blood Typeon 03-27-20 20 ABO and Rh group Nom (Bld) ABO Group: A Rh, Gel: POS Normal [facility] Comment on above: Performed By: #### A BORH ####[address] [place], [place] [address] [place] [address]#### [facility] ####[address] [address] [place] [address] ABO/RHon 03-27-2020 Sodium [Moles/Vol] A [place], [place] Sodium [Moles/Vol] Positive [place] Test Performed by [id number] [place] [address] Add On Lab Teston 03-27-2020 Sodium [Moles/Vol] Accepted [place], [place] Comment on above: Specimen available & acceptable for analysis. Test Performed by [id number] [place] [address] Arterial Blood Gaseson 03-27 CO2 [Moles/Vol] 26.3 mmol/L Normal 23.0-27.0 [facility] Comment on above: Performed By: #### A BG, HEMDF, BMP3, PT/AP, LACT3, CORTL, LFT3, FIBGN, PHOS3 ####[address] [place], [place] HCO3 (Bld) [Moles/Vol] 25.1 mmol/L High 21.0-25.0 [facility] Comment on above: Performed By: #### A BG, HEMDF, BMP3, PT/AP, LACT3, CORTL, LFT3, FIBGN, PHOS3 ####[address] [place], [place] Hemoglobin (Bld) [Mass/Vol] 7.6 g/dL Normal ScreenOnly [facility] Comment on above: Performed By: #### A BG, HEMDF, BMP3, PT/AP, LACT3, CORTL, LFT3, FIBGN, PHOS3 ####[address] Oxygen (Bld) [Partial pressure] 133.2 mm[Hg] High 80.0-100.0 [facility] Comment on above: Performed By: #### A BG, HEMDF, BMP3, PT/AP, LACT3, CORTL, LFT3, FIBGN, PHOS3 ####[address] [place], [place] Oxygen saturation in Blood 98.2 % Normal 95.0-100.0 [facility] Comment on above: Performed By: #### A BG, HEMDF, BMP3, PT/AP, LACT3, CORTL, LFT3, FIBGN, PHOS3 ####[address] pCO2 40.6 mm[Hg] Normal 35.0-45.0 [facility] Comment on above: Performed By: #### A BG, HEMDF, BMP3, PT/AP, LACT3, CORTL, LFT3, FIBGN, PHOS3 ####[address] [place], [place] pH 7.409 Normal 7.350-7.450 [facility] Comment on above: Performed By: #### A BG, HEMDF, BMP3, PT/AP, LACT3, CORTL, LFT3, FIBGN, PHOS3 ####[address] [place], [place] Std Base Excess 0.4 mmol/L Normal -3.0-3.0 [facility] Comment on above: Performed By: #### A BG, HEMDF, BMP3, PT/AP, LACT3, CORTL, LFT3, FIBGN, PHOS3 ####[address] [place], [place] FIO2 No data Normal [facility] Comment on above: Performed By: #### A BG, HEMDF, BMP3, PT/AP, LACT3, CORTL, LFT3, FIBGN, PHOS3 ####[address] CO2 [Moles/Vol] 25.2 mmol/L Normal 23.0-27.0 [facility] Comment on above: Performed By: #### P T/AP, ABG, CORTL, BMP3, LFT3, LACT3, FIBGN, ICA, HEMDF ####[address] HCO3 (Bld) [Moles/Vol] 24.0 mmol/L Normal 21.0-25.0 [facility] Comment on above: Performed By: #### P T/AP, ABG, CORTL, BMP3, LFT3, LACT3, FIBGN, ICA, HEMDF ####[address] Hemoglobin (Bld) [Mass/Vol] 9.0 g/dL Normal ScreenOnly [facility] Comment on above: Performed By: #### P T/AP, ABG, CORTL, BMP3, LFT3, LACT3, FIBGN, ICA, HEMDF ####[address] Oxygen (Bld) [Partial pressure] 126.8 mm[Hg] High 80.0-100.0 [facility] Comment on above: Performed By: #### P T/AP, ABG, CORTL, BMP3, LFT3, LACT3, FIBGN, ICA, HEMDF ####[address] Oxygen saturation in Blood 98.3 % Normal 95.0-100.0 [facility] Comment on above: Performed By: #### P T/AP, ABG, CORTL, BMP3, LFT3, LACT3, FIBGN, ICA, HEMDF ####[address] pCO2 37.1 mm[Hg] Normal 35.0-45.0 [facility] Comment on above: Performed By: #### P T/AP, ABG, CORTL, BMP3, LFT3, LACT3, FIBGN, ICA, HEMDF ####[address] pH 7.429 Normal 7.350-7.450 [facility] Comment on above: Performed By: #### P T/AP, ABG, CORTL, BMP3, LFT3, LACT3, FIBGN, ICA, HEMDF ####[address] Std Base Excess -0.2 mmol/L Normal -3.0-3.0 [facility] Comment on above: Performed By: #### P T/AP, ABG, CORTL, BMP3, LFT3, LACT3, FIBGN, ICA, HEMDF ####[address] FIO2 No data Normal [facility] Comment on above: Performed By: #### P T/AP, ABG, CORTL, BMP3, LFT3, LACT3, FIBGN, ICA, HEMDF ####[address] CO2 [Moles/Vol] 24.9 mmol/L Normal 23.0-27.0 [facility] Comment on above: Performed By: #### L ACT3, ABG, FIBGN, ICA, HEMDF, PT/AP ####[address] HCO3 (Bld) [Moles/Vol] 23.7 mmol/L Normal 21.0-25.0 [facility] Comment on above: Performed By: #### L ACT3, ABG, FIBGN, ICA, HEMDF, PT/AP ####[address] [place], [place] Hemoglobin (Bld) [Mass/Vol] 9.0 g/dL Normal ScreenOnly [facility] Comment on above: Performed By: #### L ACT3, ABG, FIBGN, ICA, HEMDF, PT/AP ####[address] [place], [place] Oxygen (Bld) [Partial pressure] 147.0 mm[Hg] High 80.0-100.0 [facility] Comment on above: Performed By: #### L ACT3, ABG, FIBGN, ICA, HEMDF, PT/AP ####[address] Oxygen saturation in Blood 98.3 % Normal 95.0-100.0 [facility] Comment on above: Performed By: #### L ACT3, ABG, FIBGN, ICA, HEMDF, PT/AP ####[address] pCO2 39.6 mm[Hg] Normal 35.0-45.0 [facility] Comment on above: Performed By: #### L ACT3, ABG, FIBGN, ICA, HEMDF, PT/AP ####[address] pH 7.394 Normal 7.350-7.450 [facility] Comment on above: Performed By: #### L ACT3, ABG, FIBGN, ICA, HEMDF, PT/AP ####[address] Std Base Excess -1.1 mmol/L Normal -3.0-3.0 [facility] Comment on above: Performed By: #### L ACT3, ABG, FIBGN, ICA, HEMDF, PT/AP ####[address] FIO2 No data Normal [facility] Comment on above: Performed By: #### L ACT3, ABG, FIBGN, ICA, HEMDF, PT/AP ####[address] CO2 [Moles/Vol] 22.8 mmol/L Low 23.0-27.0 [facility] Comment on above: Performed By: #### H EMDF, FIBGN, PT/AP, ICA, ABG ####[address] HCO3 (Bld) [Moles/Vol] 21.6 mmol/L Normal 21.0-25.0 [facility] Comment on above: Performed By: #### H EMDF, FIBGN, PT/AP, ICA, ABG ####[address] Hemoglobin (Bld) [Mass/Vol] 8.8 g/dL Normal ScreenOnly [facility] Comment on above: Performed By: #### H EMDF, FIBGN, PT/AP, ICA, ABG ####[address] Oxygen (Bld) [Partial pressure] 160.7 mm[Hg] High 80.0-100.0 [facility] Comment on above: Performed By: #### H EMDF, FIBGN, PT/AP, ICA, ABG ####[address] Oxygen saturation in Blood 98.0 % Normal 95.0-100.0 [facility] Comment on above: Performed By: #### H EMDF, FIBGN, PT/AP, ICA, ABG ####[address] pCO2 39.7 mm[Hg] Normal 35.0-45.0 [facility] Comment on above: Performed By: #### H EMDF, FIBGN, PT/AP, ICA, ABG ####[address] pH 7.353 Normal 7.350-7.450 [facility] Comment on above: Performed By: #### H EMDF, FIBGN, PT/AP, ICA, ABG ####[address] Std Base Excess -3.7 mmol/L Low -3.0-3.0 [facility] Comment on above: Performed By: #### H EMDF, FIBGN, PT/AP, ICA, ABG ####[address] [place], [place] FIO2 No data Normal [facility] Comment on above: Performed By: #### H EMDF, FIBGN, PT/AP, ICA, ABG ####[address] CO2 [Moles/Vol] 17.3 mmol/L Low 23.0-27.0 [facility] Comment on above: Performed By: #### I CA, CORTL, BMP3, PT/AP, HEMDF, ABG, FIBGN ####[address] HCO3 (Bld) [Moles/Vol] 16.1 mmol/L Low 21.0-25.0 [facility] [facility] Comment on above: Performed By: #### I CA, CORTL, BMP3, PT/AP, HEMDF, ABG, FIBGN ####[address] Hemoglobin (Bld) [Mass/Vol] 9.6 g/dL Normal ScreenOnly [facility] Comment on above: Performed By: #### I CA, CORTL, BMP3, PT/AP, HEMDF, ABG, FIBGN ####[address] Oxygen (Bld) [Partial pressure] 149.1 mm[Hg] High 80.0-100.0 [facility] Comment on above: Performed By: #### I CA, CORTL, BMP3, PT/AP, HEMDF, ABG, FIBGN ####[address] Oxygen saturation in Blood 97.9 % Normal 95.0-100.0 [facility] Comment on above: Performed By: #### I CA, CORTL, BMP3, PT/AP, HEMDF, ABG, FIBGN ####[address] pCO2 41.0 mm[Hg] Normal 35.0-45.0 [facility] Comment on above: Performed By: #### I CA, CORTL, BMP3, PT/AP, HEMDF, ABG, FIBGN ####[address] [place], [place] pH 7.211 Low 7.350-7.450 [facility] Comment on above: Performed By: #### I CA, CORTL, BMP3, PT/AP, HEMDF, ABG, FIBGN ####[address] [place], [place] Std Base Excess -11.1 mmol/L Low -3.0-3.0 [facility] Comment on above: Performed By: #### I CA, CORTL, BMP3, PT/AP, HEMDF, ABG, FIBGN ####[address] FIO2 No data Normal [facility] Comment on above: Performed By: #### I CA, CORTL, BMP3, PT/AP, HEMDF, ABG, FIBGN ####[address] [place], [place] Basic Metabolic Panelon 10-1 Calcium [Mass/Vol] 7.5 mg/dL Low 8.4-10.4 [facility] Comment on above: Performed By: #### A BG, HEMDF, BMP3, PT/AP, LACT3, CORTL, LFT3, FIBGN, PHOS3 ####[address] [place], [place] Glucose [Mass/Vol] 133 mg/dL High 70-100 [facility] Comment on above: Performed By: #### A BG, HEMDF, BMP3, PT/AP, LACT3, CORTL, LFT3, FIBGN, PHOS3 ####[address] [place], [place] Anion Gap 6 Normal [facility] Comment on above: Performed By: #### A BG, HEMDF, BMP3, PT/AP, LACT3, CORTL, LFT3, FIBGN, PHOS3 ####[address] [place], [place] CO2 [Moles/Vol] 26 mmol/L Normal 22-30 [facility] Comment on above: Performed By: #### A BG, HEMDF, BMP3, PT/AP, LACT3, CORTL, LFT3, FIBGN, PHOS3 ####[address] [place], [place] Creatinine [Mass/Vol] 1.30 mg/dL High 0.52-1.25 [facility] Comment on above: Performed By: #### A BG, HEMDF, BMP3, PT/AP, LACT3, CORTL, LFT3, FIBGN, PHOS3 ####[address] [place], [place] GFR/1.73 sq M.predicted among blacks MDRD (S/P/Bld) [Vol rate/Area] 59.3 mL/min/{1.73_m2} Abnormal >60 [facility] Comment on above: Performed By: #### A BG, HEMDF, BMP3, PT/AP, LACT3, CORTL, LFT3, FIBGN, PHOS3 ####[address] GFR/1.73 sq M.predicted among non-blacks MDRD (S/P/Bld) [Vol rate/Area] 51.2 mL/min/{1.73_m2} Abnormal >60 [facility] Comment on above: Result Comment: KDIG O guidelines provide the following GFR categories:Stage GFR(ml/min/1.73 m2) TermsG1 >=90 Normal or highG2 60-89 Mildly decreased*G3a 45-59 Mildly to moderately wbtlizhqxA4h 30-44 Moderately to severely decreasedG4 15-29 Severely decreasedG5 <15 Kidney failure*Relative to young adult level.In the absence of evidence of kidney damage, neither GFRcategory G1 nor G2 fulfill the criteria for CKD.The CKD-EPI equation is validated in individuals 18 yearsof age and older. Currently the best equation forestimating glomerular filtration rate (GFR) from serumcreatinine in children is the Bedside Pelletier equation.It is less accurate in patients with extremes of musclemass, restriction of dietary protein, ingestion of creatine,extra-renal metabolism of creatinine, or treatment withmedications that affect renal tubular creatinine secretion. Performed By: #### A BG, HEMDF, BMP3, PT/AP, LACT3, CORTL, LFT3, FIBGN, PHOS3 ####[address] [place], [place] Urea nitrogen [Mass/Vol] 36 mg/dL High 7-20 [facility] Comment on above: Performed By: #### A BG, HEMDF, BMP3, PT/AP, LACT3, CORTL, LFT3, FIBGN, PHOS3 ####[address] [place], [place] Chloride [Moles/Vol] 104 mmol/L Normal 98-107 [facility] Comment on above: Performed By: #### A BG, HEMDF, BMP3, PT/AP, LACT3, CORTL, LFT3, FIBGN, PHOS3 ####[address] [place], [place] Potassium [Moles/Vol] 4.1 mmol/L Normal 3.5-5.1 [facility] Comment on above: Performed By: #### A BG, HEMDF, BMP3, PT/AP, LACT3, CORTL, LFT3, FIBGN, PHOS3 ####[address] [place], [place] Sodium [Moles/Vol] 136 mmol/L Normal 135-145 [facility] Comment on above: Performed By: #### A BG, HEMDF, BMP3, PT/AP, LACT3, CORTL, LFT3, FIBGN, PHOS3 ####[address] [place], [place] Anion gap [Moles/Vol] 6 mmol/L [place], [place] Calcium [Mass/Vol] 7.5 mg/dL Low 8.4 - 10. 4 mg/dL [place], [place] Chloride [Moles/Vol] 104 mmol/L 98 - 10 7 mmol/L [place] CO2 [Moles/Vol] 26 mmol/L 22 - 30 mmol/L [place] Creatinine [Mass/Vol] 1.3 mg/dL High 0.52 - 1.25 mg/dL [place] EGFR IF NonAfrican Albanian 51.2 mL/min Abnormal >60 [place] Comment on above: KDIGO guidelines pro vide the following GFR categories: Stage GFR(ml/min/1.73 m2) Terms G1 >=90 Normal or high G2 60-89 Mildly decreased* G3a 45-59 Mildly to moderately decreased G3b 30-44 Moderately to severely decreased G4 15-29 Severely decreased G5 <15 Kidney failure *Relative to young adult level. In the absence of evidence of kidney damage, neither GFR category G1 nor G2 fulfill the criteria for CKD. The CKD-EPI equation is validated in individuals 18 years of age and older. Currently the best equation for estimating glomerular filtration rate (GFR) from serum creatinine in children is the Bedside Pelletier equation. It is less accurate in patients with extremes of muscle mass, restriction of dietary protein, ingestion of creatine, extra-renal metabolism of creatinine, or treatment with medications that affect renal tubular creatinine secretion. GFR/1.73 sq M predicted among blacks MDRD (S/P/Bld) [Vol rate/Area] 59.3 mL/min/{1.73_m2} Abnormal >60 [place], [place] Glucose [Mass/Vol] 133 mg/dL High 70 - 100 mg/dL [place] Potassium [Moles/Vol] 4.1 mmol/L 3.5 - 5.1 mmol/L [place] Sodium [Moles/Vol] 136 mmol/L 135 - 145 mmol/L [place] Urea nitrogen [Mass/Vol] 36 mg/dL High 7 - 20 mg/dL [place] Anion Gap 7 Normal [facility] Comment on above: Performed By: #### P T/AP, ABG, CORTL, BMP3, LFT3, LACT3, FIBGN, ICA, HEMDF ####[facility] [id number] [place] [address] Calcium [Mass/Vol] 7.6 mg/dL Low 8.4-10.4 [facility] Comment on above: Performed By: #### P T/AP, ABG, CORTL, BMP3, LFT3, LACT3, FIBGN, ICA, HEMDF ####[address] [place], [place] CO2 [Moles/Vol] 24 mmol/L Normal 22-30 [facility] Comment on above: Performed By: #### P T/AP, ABG, CORTL, BMP3, LFT3, LACT3, FIBGN, ICA, HEMDF ####[address] [place], [place] Glucose [Mass/Vol] 140 mg/dL High 70-100 [facility] Comment on above: Performed By: #### P T/AP, ABG, CORTL, BMP3, LFT3, LACT3, FIBGN, ICA, HEMDF ####[address] [place], [place] Urea nitrogen [Mass/Vol] 35 mg/dL High 7-20 [facility] Comment on above: Performed By: #### P T/AP, ABG, CORTL, BMP3, LFT3, LACT3, FIBGN, ICA, HEMDF ####[address] [place], [place] Creatinine [Mass/Vol] 1.29 mg/dL High 0.52-1.25 [facility] Comment on above: Performed By: #### P T/AP, ABG, CORTL, BMP3, LFT3, LACT3, FIBGN, ICA, HEMDF ####[address] [place], [place] GFR/1.73 sq M.predicted among blacks MDRD (S/P/Bld) [Vol rate/Area] 59.9 mL/min/{1.73_m2} Abnormal >60 [facility] Comment on above: Performed By: #### P T/AP, ABG, CORTL, BMP3, LFT3, LACT3, FIBGN, ICA, HEMDF ####[address] [place], [place] GFR/1.73 sq M.predicted among non-blacks MDRD (S/P/Bld) [Vol rate/Area] 51.7 mL/min/{1.73_m2} Abnormal >60 [facility] Comment on above: Result Comment: KDIG O guidelines provide the following GFR categories:Stage GFR(ml/min/1.73 m2) TermsG1 >=90 Normal or highG2 60-89 Mildly decreased*G3a 45-59 Mildly to moderately [id number] 30-44 Moderately to severely decreasedG4 15-29 Severely decreasedG5 <15 Kidney failure*Relative to young adult level.In the absence of evidence of kidney damage, neither GFRcategory G1 nor G2 fulfill the criteria for CKD.The CKD-EPI equation is validated in individuals 18 yearsof age and older. Currently the best equation forestimating glomerular filtration rate (GFR) from serumcreatinine in children is the Bedside Pelletier equation.It is less accurate in patients with extremes of musclemass, restriction of dietary protein, ingestion of creatine,extra-renal metabolism of creatinine, or treatment withmedications that affect renal tubular creatinine secretion. Performed By: #### P T/AP, ABG, CORTL, BMP3, LFT3, LACT3, FIBGN, ICA, HEMDF ####[address] [place], [place] Chloride [Moles/Vol] 107 mmol/L Normal 98-107 [facility] Comment on above: Performed By: #### P T/AP, ABG, CORTL, BMP3, LFT3, LACT3, FIBGN, ICA, HEMDF ####[address] [place], [place] Potassium [Moles/Vol] 4.0 mmol/L Normal 3.5-5.1 [facility] Comment on above: Performed By: #### P T/AP, ABG, CORTL, BMP3, LFT3, LACT3, FIBGN, ICA, HEMDF ####[address] [place], [place] Sodium [Moles/Vol] 137 mmol/L Normal 135-145 [facility] Comment on above: Performed By: #### P T/AP, ABG, CORTL, BMP3, LFT3, LACT3, FIBGN, ICA, HEMDF ####[address] [place] [address] Anion gap [Moles/Vol] 7 mmol/L [place], [place] Calcium [Mass/Vol] 7.6 mg/dL Low 8.4 - 10. 4 mg/dL [place], [place] Chloride [Moles/Vol] 107 mmol/L 98 - 10 7 mmol/L [place] CO2 [Moles/Vol] 24 mmol/L 22 - 30 mmol/L [place] Creatinine [Mass/Vol] 1.29 mg/dL High 0.52 - 1.25 mg/dL [place] EGFR IF NonAfrican [place]ian 51.7 mL/min Abnormal >60 [place] Comment on above: KDIGO guidelines pro vide the following GFR categories: Stage GFR(ml/min/1.73 m2) Terms G1 >=90 Normal or high G2 60-89 Mildly decreased* G3a 45-59 Mildly to moderately decreased G3b 30-44 Moderately to severely decreased G4 15-29 Severely decreased G5 <15 Kidney failure *Relative to young adult level. In the absence of evidence of kidney damage, neither GFR category G1 nor G2 fulfill the criteria for CKD. The CKD-EPI equation is validated in individuals 18 years of age and older. Currently the best equation for estimating glomerular filtration rate (GFR) from serum creatinine in children is the Bedside Pelletier equation. It is less accurate in patients with extremes of muscle mass, restriction of dietary protein, ingestion of creatine, extra-renal metabolism of creatinine, or treatment with medications that affect renal tubular creatinine secretion. GFR/1.73 sq M predicted among blacks MDRD (S/P/Bld) [Vol rate/Area] 59.9 mL/min/{1.73_m2} Abnormal >60 [place], [place] Glucose [Mass/Vol] 140 mg/dL High 70 - 100 mg/dL [place] Interpretation and review of laboratory results Abnormal [place] Potassium [Moles/Vol] 4.0 mmol/L 3.5 - 5.1 mmol/L [place] Sodium [Moles/Vol] 137 mmol/L 135 - 145 mmol/L [facility], [place] Urea nitrogen [Mass/Vol] 35 mg/dL High 7 - 20 mg/dL [facility], [place] Test Performed by [facility], [address] [place] [address] [facility], [place] Calcium [Mass/Vol] 7.3 mg/dL Low 8.4-10.4 [facility] Comment on above: Performed By: #### Paulette MAURER, THEODORA3, CKMBS, CORTL ####[address] [place] [address] Glucose [Mass/Vol] 95 mg/dL Normal 70-100 [facility] Comment on above: Performed By: #### Paulette MAURER, BMP3, CKMBS, CORTL ####[address] [place] [address] Urea nitrogen [Mass/Vol] 34 mg/dL High 7-20 [facility] Comment on above: Performed By: #### Paulette MAURER, THEODORA3, CKMBS, CORTL ####[address] [place] [address] Anion Gap 8 Normal [facility] Comment on above: Performed By: #### Paulette MAURER, BMP3, CKMBS, CORTL ####[address] [place] [address] CO2 [Moles/Vol] 23 mmol/L Normal 22-30 [facility] Comment on above: Performed By: #### Paulette MAURER, BMP3, CKMBS, CORTL ####[address] [place] [address] Creatinine [Mass/Vol] 1.35 mg/dL High 0.52-1.25 [facility] Comment on above: Performed By: #### Paulette VASQUEZ33, BMP3, CKMBS, CORTL ####[address] [place] [address] GFR/1.73 sq M.predicted among blacks MDRD (S/P/Bld) [Vol rate/Area] 56.7 mL/min/{1.73_m2} Abnormal >60 [facility] Comment on above: Performed By: #### Paulette MAURER, THEODORA3, CKMBS, CORTL ####[facility] [id number] [address] GFR/1.73 sq M.predicted among non-blacks MDRD (S/P/Bld) [Vol rate/Area] 48.9 mL/min/{1.73_m2} Abnormal >60 [facility] Comment on above: Result Comment: KDIG O guidelines provide the following GFR categories:Stage GFR(ml/min/1.73 m2) TermsG1 >=90 Normal or highG2 60-89 Mildly decreased*G3a 45-59 Mildly to moderately [id number] 30-44 Moderately to severely decreasedG4 15-29 Severely decreasedG5 <15 Kidney failure*Relative to young adult level.In the absence of evidence of kidney damage, neither GFRcategory G1 nor G2 fulfill the criteria for CKD.The CKD-EPI equation is validated in individuals 18 yearsof age and older. Currently the best equation forestimating glomerular filtration rate (GFR) from serumcreatinine in children is the Bedside Pelletier equation.It is less accurate in patients with extremes of musclemass, restriction of dietary protein, ingestion of creatine,extra-renal metabolism of creatinine, or treatment withmedications that affect renal tubular creatinine secretion. Performed By: #### Paulette MAURER, BMP3, CKMBS, CORTL ####[facility] [address] [address] Potassium [Moles/Vol] 3.9 mmol/L Normal 3.5-5.1 [facility] Comment on above: Performed By: #### Paulette BFAnamaria, BMP3, CKMBS, CORTL ####[facility] [id number] [address] Chloride [Moles/Vol] 107 mmol/L Normal 98-107 [facility] Comment on above: Performed By: #### Paulette BF33, BMP3, CKMBS, CORTL ####[facility] [id number] [place] [address] Sodium [Moles/Vol] 139 mmol/L Normal 135-145 [facility] Comment on above: Performed By: #### M BF33, BMP3, CKMBS, CORTL ####[address] [place] [address] Anion gap [Moles/Vol] 8 mmol/L [place], [place] Calcium [Mass/Vol] 7.3 mg/dL Low 8.4 - 10. 4 mg/dL [place], [place] Chloride [Moles/Vol] 107 mmol/L 98 - 10 7 mmol/L [place] CO2 [Moles/Vol] 23 mmol/L 22 - 30 mmol/L [place] Creatinine [Mass/Vol] 1.35 mg/dL High 0.52 - 1.25 mg/dL [place] EGFR IF NonAfrican [place]ian 48.9 mL/min Abnormal >60 [place] Comment on above: KDIGO guidelines pro vide the following GFR categories: Stage GFR(ml/min/1.73 m2) Terms G1 >=90 Normal or high G2 60-89 Mildly decreased* G3a 45-59 Mildly to moderately decreased G3b 30-44 Moderately to severely decreased G4 15-29 Severely decreased G5 <15 Kidney failure *Relative to young adult level. In the absence of evidence of kidney damage, neither GFR category G1 nor G2 fulfill the criteria for CKD. The CKD-EPI equation is validated in individuals 18 years of age and older. Currently the best equation for estimating glomerular filtration rate (GFR) from serum creatinine in children is the Bedside Pelletier equation. It is less accurate in patients with extremes of muscle mass, restriction of dietary protein, ingestion of creatine, extra-renal metabolism of creatinine, or treatment with medications that affect renal tubular creatinine secretion. GFR/1.73 sq M predicted among blacks MDRD (S/P/Bld) [Vol rate/Area] 56.7 mL/min/{1.73_m2} Abnormal >60 [place], [place] Glucose [Mass/Vol] 95 mg/dL 70 - 100 mg/dL [place] Potassium [Moles/Vol] 3.9 mmol/L 3.5 - 5.1 mmol/L [place] Sodium [Moles/Vol] 139 mmol/L 135 - 145 mmol/L [facility] [place] [place] Urea nitrogen [Mass/Vol] 34 mg/dL High 7 - 20 mg/dL [facility], [place] Anion Gap 10 Normal [facility] Comment on above: Performed By: #### Paulette G3, BMP3 ####[address] [place], [place] Calcium [Mass/Vol] 7.6 mg/dL Low 8.4-10.4 [facility] Comment on above: Performed By: #### Paulette G3, BMP3 ####[address] [place], [place] CO2 [Moles/Vol] 21 mmol/L Low 22-30 [facility] Comment on above: Performed By: #### Paulette Nice, BMP3 ####[address] [place], [place] Glucose [Mass/Vol] 126 mg/dL High 70-100 [facility] Comment on above: Performed By: #### Paulette G3, BMP3 ####[address] [place], [place] Urea nitrogen [Mass/Vol] 34 mg/dL High 7-20 [facility] Comment on above: Performed By: #### Paulette G3, BMP3 ####[address] [place], [place] Creatinine [Mass/Vol] 1.45 mg/dL High 0.52-1.25 [facility] Comment on above: Performed By: #### Paulette G3, BMP3 ####[address] [place], [place] GFR/1.73 sq M.predicted among blacks MDRD (S/P/Bld) [Vol rate/Area] 52.0 mL/min/{1.73_m2} Abnormal >60 [facility] Comment on above: Performed By: #### Paulette G3, BMP3 ####[address] [place], [place] GFR/1.73 sq M.predicted among non-blacks MDRD (S/P/Bld) [Vol rate/Area] 44.9 mL/min/{1.73_m2} Abnormal >60 [facility] Comment on above: Result Comment: KDIG O guidelines provide the following GFR categories:Stage GFR(ml/min/1.73 m2) TermsG1 >=90 Normal or highG2 60-89 Mildly decreased*G3a 45-59 Mildly to moderately dyugafjdsV2g 30-44 Moderately to severely decreasedG4 15-29 Severely decreasedG5 <15 Kidney failure*Relative to young adult level.In the absence of evidence of kidney damage, neither GFRcategory G1 nor G2 fulfill the criteria for CKD.The CKD-EPI equation is validated in individuals 18 yearsof age and older. Currently the best equation forestimating glomerular filtration rate (GFR) from serumcreatinine in children is the Bedside Pelletier equation.It is less accurate in patients with extremes of musclemass, restriction of dietary protein, ingestion of creatine,extra-renal metabolism of creatinine, or treatment withmedications that affect renal tubular creatinine secretion. Performed By: #### Paulette Nice, BMP3 ####[facility] [id number] [place], [place] Chloride [Moles/Vol] 110 mmol/L High 98-107 [facility] Comment on above: Performed By: #### Paulette G3, BMP3 ####[address] [place], [place] Potassium [Moles/Vol] 4.1 mmol/L Normal 3.5-5.1 [facility] Comment on above: Performed By: #### Paulette G3, BMP3 ####[address] [place], [place] Sodium [Moles/Vol] 140 mmol/L Normal 135-145 [facility] Comment on above: Performed By: #### Paulette G3, BMP3 ####[address] [place], [place] Anion gap [Moles/Vol] 10 mmol/L [facility], [place] Calcium [Mass/Vol] 7.6 mg/dL Low 8.4 - 10. 4 mg/dL [facility], [place] Chloride [Moles/Vol] 110 mmol/L High 98 - 10 7 mmol/L [facility], [place] CO2 [Moles/Vol] 21 mmol/L Low 22 - 30 mmol/L [place] Creatinine [Mass/Vol] 1.45 mg/dL High 0.52 - 1.25 mg/dL [place] EGFR IF NonAfrican [place]ian 44.9 mL/min Abnormal >60 [place] Comment on above: KDIGO guidelines pro vide the following GFR categories: Stage GFR(ml/min/1.73 m2) Terms G1 >=90 Normal or high G2 60-89 Mildly decreased* G3a 45-59 Mildly to moderately decreased G3b 30-44 Moderately to severely decreased G4 15-29 Severely decreased G5 <15 Kidney failure *Relative to young adult level. In the absence of evidence of kidney damage, neither GFR category G1 nor G2 fulfill the criteria for CKD. The CKD-EPI equation is validated in individuals 18 years of age and older. Currently the best equation for estimating glomerular filtration rate (GFR) from serum creatinine in children is the Bedside Pelletier equation. It is less accurate in patients with extremes of muscle mass, restriction of dietary protein, ingestion of creatine, extra-renal metabolism of creatinine, or treatment with medications that affect renal tubular creatinine secretion. GFR/1.73 sq M predicted among blacks MDRD (S/P/Bld) [Vol rate/Area] 52.0 mL/min/{1.73_m2} Abnormal >60 [place], [place] Glucose [Mass/Vol] 126 mg/dL High 70 - 100 mg/dL [place] Interpretation and review of laboratory results Abnormal [place] Potassium [Moles/Vol] 4.1 mmol/L 3.5 - 5.1 mmol/L [place] Sodium [Moles/Vol] 140 mmol/L 135 - 145 mmol/L [place] Urea nitrogen [Mass/Vol] 34 mg/dL High 7 - 20 mg/dL [place] Calcium [Mass/Vol] 7.8 mg/dL Low 8.4-10.4 [facility] Comment on above: Performed By: #### I CA, CORTL, BMP3, PT/AP, HEMDF, ABG, FIBGN ####[facility] [id number] [place] [address] Anion Gap 14 Normal [facility] Comment on above: Performed By: #### I CA, CORTL, BMP3, PT/AP, HEMDF, ABG, FIBGN ####[address] [place], [place] CO2 [Moles/Vol] 15 mmol/L Low 22-30 [facility] Comment on above: Performed By: #### I CA, CORTL, BMP3, PT/AP, HEMDF, ABG, FIBGN ####[address] [place], [place] Creatinine [Mass/Vol] 1.44 mg/dL High 0.52-1.25 [facility] Comment on above: Performed By: #### I CA, CORTL, BMP3, PT/AP, HEMDF, ABG, FIBGN ####[address] [place], [place] GFR/1.73 sq M.predicted among blacks MDRD (S/P/Bld) [Vol rate/Area] 52.4 mL/min/{1.73_m2} Abnormal >60 [facility] Comment on above: Performed By: #### I CA, CORTL, BMP3, PT/AP, HEMDF, ABG, FIBGN ####[address] [place], [place] GFR/1.73 sq M.predicted among non-blacks MDRD (S/P/Bld) [Vol rate/Area] 45.3 mL/min/{1.73_m2} Abnormal >60 [facility] Comment on above: Result Comment: KDIG O guidelines provide the following GFR categories:Stage GFR(ml/min/1.73 m2) TermsG1 >=90 Normal or highG2 60-89 Mildly decreased*G3a 45-59 Mildly to moderately ozscsesbhL7q 30-44 Moderately to severely decreasedG4 15-29 Severely decreasedG5 <15 Kidney failure*Relative to young adult level.In the absence of evidence of kidney damage, neither GFRcategory G1 nor G2 fulfill the criteria for CKD.The CKD-EPI equation is validated in individuals 18 yearsof age and older. Currently the best equation forestimating glomerular filtration rate (GFR) from serumcreatinine in children is the Bedside Pelletier equation.It is less accurate in patients with extremes of musclemass, restriction of dietary protein, ingestion of creatine,extra-renal metabolism of creatinine, or treatment withmedications that affect renal tubular creatinine secretion. Performed By: #### I CA, CORTL, BMP3, PT/AP, HEMDF, ABG, FIBGN ####[address] [place], [place] Glucose [Mass/Vol] 180 mg/dL High 70-100 [facility] Comment on above: Performed By: #### I CA, CORTL, BMP3, PT/AP, HEMDF, ABG, FIBGN ####[address] [place], [place] Urea nitrogen [Mass/Vol] 32 mg/dL High 7-20 [facility] Comment on above: Performed By: #### I CA, CORTL, BMP3, PT/AP, HEMDF, ABG, FIBGN ####[address] [place] [place], [place] Chloride [Moles/Vol] 110 mmol/L High 98-107 [facility] Comment on above: Performed By: #### I CA, CORTL, BMP3, PT/AP, HEMDF, ABG, FIBGN ####[address] [place] [place], [place] Potassium [Moles/Vol] 3.9 mmol/L Normal 3.5-5.1 [facility] Comment on above: Performed By: #### I CA, CORTL, BMP3, PT/AP, HEMDF, ABG, FIBGN ####[id number] [place], [place] Sodium [Moles/Vol] 139 mmol/L Normal 135-145 [facility] Comment on above: Performed By: #### I CA, CORTL, BMP3, PT/AP, HEMDF, ABG, FIBGN ####[address] [address] [place], [place] Anion gap [Moles/Vol] 14 mmol/L [facility], [place] Calcium [Mass/Vol] 7.8 mg/dL Low 8.4 - 10. 4 mg/dL [place], [place] Chloride [Moles/Vol] 110 mmol/L High 98 - 10 7 mmol/L [place] CO2 [Moles/Vol] 15 mmol/L Low 22 - 30 mmol/L [place] Creatinine [Mass/Vol] 1.44 mg/dL High 0.52 - 1.25 mg/dL [place], [place] EGFR IF NonAfrican Albanian 45.3 mL/min Abnormal >60 [place], [place] Comment on above: KDIGO guidelines pro vide the following GFR categories: Stage GFR(ml/min/1.73 m2) Terms G1 >=90 Normal or high G2 60-89 Mildly decreased* G3a 45-59 Mildly to moderately decreased G3b 30-44 Moderately to severely decreased G4 15-29 Severely decreased G5 <15 Kidney failure *Relative to young adult level. In the absence of evidence of kidney damage, neither GFR category G1 nor G2 fulfill the criteria for CKD. The CKD-EPI equation is validated in individuals 18 years of age and older. Currently the best equation for estimating glomerular filtration rate (GFR) from serum creatinine in children is the Bedside Pelletier equation. It is less accurate in patients with extremes of muscle mass, restriction of dietary protein, ingestion of creatine, extra-renal metabolism of creatinine, or treatment with medications that affect renal tubular creatinine secretion. GFR/1.73 sq M predicted among blacks MDRD (S/P/Bld) [Vol rate/Area] 52.4 mL/min/{1.73_m2} Abnormal >60 [place], [place] Glucose [Mass/Vol] 180 mg/dL High 70 - 100 mg/dL [place] Interpretation and review of laboratory results Abnormal [place] Potassium [Moles/Vol] 3.9 mmol/L 3.5 - 5.1 mmol/L [place] Sodium [Moles/Vol] 139 mmol/L 135 - 145 mmol/L [place] Urea nitrogen [Mass/Vol] 32 mg/dL High 7 - 20 mg/dL [place] Test Performed by [facility], [address] [place] [address] [facility] [place], [place] Calcium [Mass/Vol] 7.6 mg/dL Low 8.4-10.4 [facility] Comment on above: Performed By: #### F IBGN, BMP3, ICA, ABG, HEMDF, PT/AP ####[address] [facility] [place] Glucose [Mass/Vol] 116 mg/dL High 70-100 [facility] Comment on above: Performed By: #### F IBGN, BMP3, ICA, ABG, HEMDF, PT/AP ####[address] [facility] Urea nitrogen [Mass/Vol] 32 mg/dL High 7-20 [facility] Comment on above: Performed By: #### F IBGN, BMP3, ICA, ABG, HEMDF, PT/AP ####[address] [place], [place] Anion Gap 6 Normal [facility] Comment on above: Performed By: #### F IBGN, BMP3, ICA, ABG, HEMDF, PT/AP ####[address] [facility] [place] CO2 [Moles/Vol] 21 mmol/L Low 22-30 [facility] Comment on above: Performed By: #### F IBGN, BMP3, ICA, ABG, HEMDF, PT/AP ####[address] [place], [place] Creatinine [Mass/Vol] 1.26 mg/dL High 0.52-1.25 [facility] Comment on above: Performed By: #### F IBGN, BMP3, ICA, ABG, HEMDF, PT/AP ####[address] [place], [place] GFR/1.73 sq M.predicted among blacks MDRD (S/P/Bld) [Vol rate/Area] 61.6 mL/min/{1.73_m2} Normal >60 [facility] Comment on above: Performed By: #### F IBGN, BMP3, ICA, ABG, HEMDF, PT/AP ####[address] [place], [place] GFR/1.73 sq M.predicted among non-blacks MDRD (S/P/Bld) [Vol rate/Area] 53.2 mL/min/{1.73_m2} Abnormal >60 [facility] Comment on above: Result Comment: KDIG O guidelines provide the following GFR categories:Stage GFR(ml/min/1.73 m2) TermsG1 >=90 Normal or highG2 60-89 Mildly decreased*G3a 45-59 Mildly to moderately [id number] 30-44 Moderately to severely decreasedG4 15-29 Severely decreasedG5 <15 Kidney failure*Relative to young adult level.In the absence of evidence of kidney damage, neither GFRcategory G1 nor G2 fulfill the criteria for CKD.The CKD-EPI equation is validated in individuals 18 yearsof age and older. Currently the best equation forestimating glomerular filtration rate (GFR) from serumcreatinine in children is the Bedside Pelletier equation.It is less accurate in patients with extremes of musclemass, restriction of dietary protein, ingestion of creatine,extra-renal metabolism of creatinine, or treatment withmedications that affect renal tubular creatinine secretion. Performed By: #### F IBGN, BMP3, ICA, ABG, HEMDF, PT/AP ####[address] [place], [place] Chloride [Moles/Vol] 111 mmol/L High 98-107 [facility] Comment on above: Performed By: #### F IBGN, BMP3, ICA, ABG, HEMDF, PT/AP ####[address] [place], [place] Potassium [Moles/Vol] 4.3 mmol/L Normal 3.5-5.1 [facility] Comment on above: Performed By: #### F IBGN, BMP3, ICA, ABG, HEMDF, PT/AP ####[address] [place], [place] Sodium [Moles/Vol] 137 mmol/L Normal 135-145 [facility] Comment on above: Performed By: #### F IBGN, BMP3, ICA, ABG, HEMDF, PT/AP ####[facility] [place] [address] Blood Gas, Arterialon 2019 Base Excess, Arterial 0.4 mmol/L -3 - 3 mmol/L [facility], [place] HCO3, Arterial 25.1 mmol/L High 21 - 25 mmol/L [facility], [place] Hemoglobin (Bld) [Mass/Vol] 7.6 g/dL Screenly [facility], [place] Oxygen saturation in Blood 98.2 % 95 - 100 % [facility] pCO2, Arterial 40.6 mm[Hg] 35 - 45 mm[Hg] [facility] [place] pH, Arterial [address] [facility] [place], [place] pO2, Arterial 133.2 mm[Hg] High 80 - 100 mm[Hg] [facility] Sodium [Moles/Vol] No data [facility] TCO2, Arterial 26.3 mmol/L 23 - 27 mmol/L [facility] [place] Base Excess, Arterial -0.2 mmol/L -3 - 3 mmol/L [facility] HCO3, Arterial 24.0 mmol/L 21 - 25 mmol/L [facility] [place] Hemoglobin (Bld) [Mass/Vol] 9 g[facility] [place] Interpretation and review of laboratory results Abnormal [facility], [place] Oxygen saturation in Blood 98.3 % 95 - 100 % [facility] pCO2, Arterial 37.1 mm[Hg] 35 - 45 mm[Hg] [facility] pH, Arterial 7.429 [facility], [place] pO2, Arterial 126.8 mm[Hg] High 80 - 100 mm[Hg] [facility] [place], [place] Sodium [Moles/Vol] No data [facility], [place] TCO2, Arterial 25.2 mmol/L 23 - 27 mmol/L [facility], [place] Test Performed by [facility], [address] [place] [address] [facility], [place] Base Excess, Arterial -1.1 mmol/L -3 - 3 mmol/L [facility], [place] HCO3, Arterial 23.7 mmol/L 21 - 25 mmol/L [place], [place] Hemoglobin (Bld) [Mass/Vol] 9 g/dL [place], [place] Oxygen saturation in Blood 98.3 % 95 - 100 % [place] pCO2, Arterial 39.6 mm[Hg] 35 - 45 mm[Hg] [place] pH, Arterial 7.394 [place] pO2, Arterial 147.0 mm[Hg] High 80 - 100 mm[Hg] [place] Sodium [Moles/Vol] No data [place] TCO2, Arterial 24.9 mmol/L 23 - 27 mmol/L [place] Base Excess, Arterial -3.7 mmol/L Low -3 - 3 mmol/L [place] HCO3, Arterial 21.6 mmol/L 21 - 25 mmol/L [place] Hemoglobin (Bld) [Mass/Vol] 8.8 g/dL [place], [place] Oxygen saturation in Blood 98.0 % 95 - 100 % [place] pCO2, Arterial 39.7 mm[Hg] 35 - 45 mm[Hg] [place] pH, Arterial 7.353 [place] pO2, Arterial 160.7 mm[Hg] High 80 - 100 mm[Hg] [place] Sodium [Moles/Vol] No data [place] TCO2, Arterial 22.8 mmol/L Low 23 - 27 mmol/L [place] Base Excess, Arterial -11.1 mmol/L Low -3 - 3 mmol/ L [place] HCO3, Arterial 16.1 mmol/L Low 21 - 25 mmol/L [place] Hemoglobin (Bld) [Mass/Vol] 9.6 g/dL [place], [place] Oxygen saturation in Blood 97.9 % 95 - 100 % [place] pCO2, Arterial 41.0 mm[Hg] 35 - 45 mm[Hg] [place] pH, Arterial 7.211 Low [place] pO2, Arterial 149.1 mm[Hg] High 80 - 100 mm[Hg] [place] Sodium [Moles/Vol] No data [place] TCO2, Arterial 17.3 mmol/L Low 23 - 27 mmol/L [place] CBC Auto Differentialon 03-15 Absolute Baso # 0.0 10*3/uL 0 - 0.2 10*3/uL [place] Absolute Neut # 7.8 10*3/uL High 1.8 - 7 10*3/uL [place], [place] Basophils/100 WBC (Bld) 0.3 % 0 - 2 % [place] Eosinophils (Bld) [#/Vol] 0.0 10*3/uL 0 - 0.5 10*3/uL [place] Eosinophils/100 WBC (Bld) 0.2 % Low 1 - 6 % [place] Erythrocyte distribution width (RBC) [Ratio] 14.9 % High 11.5 - 14.5 % [place] Granulocytes/100 WBC (Bld) 64.4 % 40 - 80 % [place] Hematocrit (Bld) [Volume fraction] 21.2 % Low 40 - 52 % [place] Hemoglobin (Bld) [Mass/Vol] 7.2 g/dL Low 13 - 18 g/dL [place] Interpretation and review of laboratory results Abnormal [place] Lymphocytes (Bld) [#/Vol] 2.8 10*3/uL 1 - 4.3 10*3/uL [place], [place] Lymphocytes/100 WBC (Bld) 22.9 % 20 - 40 % [place] MCH (RBC) [Entitic mass] 29.9 pg 26 - 34 pg [place] MCHC (RBC) [Mass/Vol] 34.0 % 32 - 36 % [place] MCV (RBC) [Entitic vol] 87.9 fL 80 - 98 fL [place], [place] Monocytes (Bld) [#/Vol] 1.5 10*3/uL High 0 - 0.8 10*3/uL [place], [place] Monocytes/100 WBC (Bld) 12.2 % High 2 - 10 % [place] Platelet mean volume (Bld) [Entitic vol] 8.9 fL 7.4 - 10.4 fL [place] Platelets (Bld) [#/Vol] 86 10*3/uL Low 140 - 440 10*3/uL [place] RBC (Bld) [#/Vol] 2.41 10*6/uL Low 4.4 - 5.9 10*6/uL [place] WBC (Bld) [#/Vol] 12.1 10*3/uL High 3.6 - 10.7 10*3/uL [place] Test Performed by [facility], [address] [place] [address] [place], [place] Absolute Baso # 0.0 10*3/uL 0 - 0.2 10*3/uL [place] Absolute Neut # 9.6 10*3/uL High 1.8 - 7 10*3/uL [place], [place] Basophils/100 WBC (Bld) 0.2 % 0 - 2 % [place] Eosinophils (Bld) [#/Vol] 0.0 10*3/uL 0 - 0.5 10*3/uL [place] Eosinophils/100 WBC (Bld) 0.0 % Low 1 - 6 % [place] Erythrocyte distribution width (RBC) [Ratio] 14.8 % High 11.5 - 14.5 % [place] Granulocytes/100 WBC (Bld) 61.4 % 40 - 80 % [place] Hematocrit (Bld) [Volume fraction] 24.6 % Low 40 - 52 % [place] Hemoglobin (Bld) [Mass/Vol] 8.3 g/dL Low 13 - 18 g/dL [place] Interpretation and review of laboratory results Abnormal [place] Lymphocytes (Bld) [#/Vol] 4.2 10*3/uL 1 - 4.3 10*3/uL [place] Lymphocytes/100 WBC (Bld) 27.0 % 20 - 40 % [place] MCH (RBC) [Entitic mass] 29.4 pg 26 - 34 pg [place] MCHC (RBC) [Mass/Vol] 33.8 % 32 - 36 % [place] MCV (RBC) [Entitic vol] 87.0 fL 80 - 98 fL [place] Monocytes (Bld) [#/Vol] 1.8 10*3/uL High 0 - 0.8 10*3/uL [place], [place] Monocytes/100 WBC (Bld) 11.4 % High 2 - 10 % [place] Platelet mean volume (Bld) [Entitic vol] 8.9 fL 7.4 - 10.4 fL [place] Platelets (Bld) [#/Vol] 116 10*3/uL Low 140 - 440 10*3/uL [place] RBC (Bld) [#/Vol] 2.82 10*6/uL Low 4.4 - 5.9 10*6/uL [place] WBC (Bld) [#/Vol] 15.6 10*3/uL High 3.6 - 10.7 10*3/uL [place] Test Performed by [facility], [address] [place] [id number] [place] Absolute Baso # 0.0 10*3/uL 0 - 0.2 10*3/uL [place] Absolute Neut # 10.9 10*3/uL High 1.8 - 7 10*3/uL [place] Basophils/100 WBC (Bld) 0.2 % 0 - 2 % [place] Eosinophils (Bld) [#/Vol] 0.0 10*3/uL 0 - 0.5 10*3/uL [place] Eosinophils/100 WBC (Bld) 0.0 % Low 1 - 6 % [place] Erythrocyte distribution width (RBC) [Ratio] 14.5 % 11.5 - 14.5 % [place] Granulocytes/100 WBC (Bld) 62.5 % 40 - 80 % [place] Hematocrit (Bld) [Volume fraction] 24.9 % Low 40 - 52 % [place] Hemoglobin (Bld) [Mass/Vol] 8.5 g/dL Low 13 - 18 g/dL [place] Interpretation and review of laboratory results Abnormal [place] Lymphocytes (Bld) [#/Vol] 4.4 10*3/uL High 1 - 4.3 10*3/uL [place] Lymphocytes/100 WBC (Bld) 25.4 % 20 - 40 % [place] MCH (RBC) [Entitic mass] 29.5 pg 26 - 34 pg [place] MCHC (RBC) [Mass/Vol] 34.1 % 32 - 36 % [place] MCV (RBC) [Entitic vol] 86.5 fL 80 - 98 fL [place] Monocytes (Bld) [#/Vol] 2.1 10*3/uL High 0 - 0.8 10*3/uL [place], [place] Monocytes/100 WBC (Bld) 11.9 % High 2 - 10 % [place] Platelet mean volume (Bld) [Entitic vol] 9.0 fL 7.4 - 10.4 fL [place] Platelets (Bld) [#/Vol] 152 10*3/uL 140 - 440 10*3/uL [place] RBC (Bld) [#/Vol] 2.88 10*6/uL Low 4.4 - 5.9 10*6/uL [place] WBC (Bld) [#/Vol] 17.5 10*3/uL High 3.6 - 10.7 10*3/uL [place] Absolute Baso # 0.0 10*3/uL 0 - 0.2 10*3/uL [place] Absolute Neut # 10.3 10*3/uL High 1.8 - 7 10*3/uL [place], [place] Basophils/100 WBC (Bld) 0.2 % 0 - 2 % [place] Eosinophils (Bld) [#/Vol] 0.0 10*3/uL 0 - 0.5 10*3/uL [place] Eosinophils/100 WBC (Bld) 0.0 % Low 1 - 6 % [place] Erythrocyte distribution width (RBC) [Ratio] 14.1 % 11.5 - 14.5 % [place] Granulocytes/100 WBC (Bld) 70.5 % 40 - 80 % [place] Hematocrit (Bld) [Volume fraction] 23.7 % Low 40 - 52 % [place] Hemoglobin (Bld) [Mass/Vol] 8.1 g/dL Low 13 - 18 g/dL [place] Interpretation and review of laboratory results Abnormal [place] Lymphocytes (Bld) [#/Vol] 2.7 10*3/uL 1 - 4.3 10*3/uL [place] Lymphocytes/100 WBC (Bld) 18.8 % Low 20 - 40 % [place] MCH (RBC) [Entitic mass] 29.6 pg 26 - 34 pg [place] MCHC (RBC) [Mass/Vol] 34.1 % 32 - 36 % [place] MCV (RBC) [Entitic vol] 86.8 fL 80 - 98 fL [place] Monocytes (Bld) [#/Vol] 1.5 10*3/uL High 0 - 0.8 10*3/uL [place], [place] Monocytes/100 WBC (Bld) 10.5 % High 2 - 10 % [place] Platelet mean volume (Bld) [Entitic vol] 8.9 fL 7.4 - 10.4 fL [place] Platelets (Bld) [#/Vol] 171 10*3/uL 140 - 440 10*3/uL [place] RBC (Bld) [#/Vol] 2.73 10*6/uL Low 4.4 - 5.9 10*6/uL [place] WBC (Bld) [#/Vol] 14.6 10*3/uL High 3.6 - 10.7 10*3/uL [place] Test Performed by [facility], [address] [place] [address] [place] Absolute Baso # 0.0 10*3/uL 0 - 0.2 10*3/uL [place] Absolute Neut # 8.0 10*3/uL High 1.8 - 7 10*3/uL [place] Basophils/100 WBC (Bld) 0.2 % 0 - 2 % [place] Eosinophils (Bld) [#/Vol] 0.0 10*3/uL 0 - 0.5 10*3/uL [place] Eosinophils/100 WBC (Bld) 0.0 % Low 1 - 6 % [place] Erythrocyte distribution width (RBC) [Ratio] 14.3 % 11.5 - 14.5 % [place] Granulocytes/100 WBC (Bld) 67.7 % 40 - 80 % [place] Hematocrit (Bld) [Volume fraction] 26.6 % Low 40 - 52 % [place] Hemoglobin (Bld) [Mass/Vol] 8.8 g/dL Low 13 - 18 g/dL [place] Interpretation and review of laboratory results Abnormal [place] Lymphocytes (Bld) [#/Vol] 2.9 10*3/uL 1 - 4.3 10*3/uL [place], [place] Lymphocytes/100 WBC (Bld) 24.2 % 20 - 40 % [place] MCH (RBC) [Entitic mass] 29.5 pg 26 - 34 pg [place] MCHC (RBC) [Mass/Vol] 32.9 % 32 - 36 % [place] MCV (RBC) [Entitic vol] 89.6 fL 80 - 98 fL [place], [place] Monocytes (Bld) [#/Vol] 0.9 10*3/uL High 0 - 0.8 10*3/uL [place], [place] Monocytes/100 WBC (Bld) 7.9 % 2 - 10 % [place] Platelet mean volume (Bld) [Entitic vol] 8.8 fL 7.4 - 10.4 fL [place] Platelets (Bld) [#/Vol] 158 10*3/uL 140 - 440 10*3/uL [place] RBC (Bld) [#/Vol] 2.97 10*6/uL Low 4.4 - 5.9 10*6/uL [place] WBC (Bld) [#/Vol] 11.9 10*3/uL High 3.6 - 10.7 10*3/uL [place] Test Performed by [facility], [address] [place] [id number] [place] [address] CK with Reflex CK-MBon 03-27 Total CK 227 U/L High 30 - 170 U/L [place] CK-MB Indexon 03-27-2020 CK.MB [Mass/Vol] 5.0 ng/mL High [place] CK.MB [Mass/Vol] 11.4 ng/mL High 0 - 2.4 ng/mL [place] Comment on above: Both the CKMB and th e Relative Index must be abnormal for clinical significance. Interpretation and review of laboratory results Abnormal [place] Test Performed by [facility], [address] [place] [id number] [place] [address] CKMB Fractionationon 020 CK.MB [Mass/Vol] 11.4 ng/mL High 0.0-2.4 [facility] Comment on above: Result Comment: Both the CKMB and the Relative Index must be abnormal forclinical significance. Performed By: #### M BF33, BMP3, CKMBS, CORTL ####[facility] [id number] [place], [place] Relative Index 5.0 High 0.0-3.0 [facility] Comment on above: Performed By: #### M BF33, BMP3, CKMBS, CORTL ####[facility] [id number] [place], [place] CKMB Screenon 03-27-2020 CK [Catalytic activity/Vol] 227 U/L High 30-170 [facility] Comment on above: Performed By: #### M BF33, BMP3, CKMBS, CORTL ####[address] [place] [address] CORTISOL TOTALon 03-27-2020 Cortisol 23.3 ug/dL [place], [place] Comment on above: Before 10am 4.5-22.7 ug/dL After 5pm 1.7-14.1 ug/dL Test Performed by [facility], [address] [place] [address] [place], [place] CR Chest Portableon 03-27-20 20 CR Chest Portable Normal [facility] CR Chest Portable Normal [facility] Calcium, Ionizedon 0 Ionized Ca 3.90 mg/dL Low 4.3 - 5.2 mg/dL [place] pH (Bld) 7.44 [pH] [place] Interpretation and review of laboratory results Abnormal [place] Ionized Ca 4.20 mg/dL Low 4.3 - 5.2 mg/dL [place] pH (Bld) 7.45 [pH] [place] Test Performed by [facility], [address] [place] [address] [place] Ionized Ca 4.10 mg/dL Low 4.3 - 5.2 mg/dL [place] pH (Bld) 7.41 [pH] [place] Ionized Ca 4.10 mg/dL Low 4.3 - 5.2 mg/dL [place] pH (Bld) 7.37 [pH] [place] Ionized Ca 4.20 mg/dL Low 4.3 - 5.2 mg/dL [place] pH (Bld) 7.23 [pH] Low [place] Calcium,Ionizedon 03-27-2020 Ionized Ca,Measured 3.90 mg/dL Low 4.30-5.20 [facility] Comment on above: Performed By: #### I CA ####[facility] [id number] [place] [address] pH, Ionized Calcium 7.44 Normal 7.31-7.46 [facility] Comment on above: Performed By: #### I CA ####[address] [address] Ionized Ca,Measured 4.20 mg/dL Low 4.30-5.20 [facility] Comment on above: Performed By: #### P T/AP, ABG, CORTL, BMP3, LFT3, LACT3, FIBGN, ICA, HEMDF ####[address] [address] pH, Ionized Calcium 7.45 Normal 7.31-7.46 [facility] Comment on above: Performed By: #### P T/AP, ABG, CORTL, BMP3, LFT3, LACT3, FIBGN, ICA, HEMDF ####[address] Ionized Ca,Measured 4.10 mg/dL Low 4.30-5.20 [facility] Comment on above: Performed By: #### L ACT3, ABG, FIBGN, ICA, HEMDF, PT/AP ####[address] pH, Ionized Calcium 7.41 Normal 7.31-7.46 [facility] Comment on above: Performed By: #### L ACT3, ABG, FIBGN, ICA, HEMDF, PT/AP ####[address] [address] Ionized Ca,Measured 4.10 mg/dL Low 4.30-5.20 [facility] Comment on above: Performed By: #### H EMDF, FIBGN, PT/AP, ICA, ABG ####[address] [address] pH, Ionized Calcium 7.37 Normal 7.31-7.46 [facility] Comment on above: Performed By: #### H EMDF, FIBGN, PT/AP, ICA, ABG ####[address] [address] Ionized Ca,Measured 4.20 mg/dL Low 4.30-5.20 [facility] Comment on above: Performed By: #### I CA, CORTL, BMP3, PT/AP, HEMDF, ABG, FIBGN ####[address] [place], [place] pH, Ionized Calcium 7.23 Low 7.31-7.46 [facility] Comment on above: Performed By: #### I CA, CORTL, BMP3, PT/AP, HEMDF, ABG, FIBGN ####[address] [place], [place] Cortisolon 03-27-2020 Cortisol 22.2 ug/dL Normal [facility] Comment on above: Result Comment: Befo re 10am 4.5-22.7 ug/dLAfter 5pm 1.7-14.1 ug/dL Performed By: #### P T/AP, ABG, CORTL, BMP3, LFT3, LACT3, FIBGN, ICA, HEMDF ####[address] Cortisol 23.3 ug/dL Normal [facility] Comment on above: Result Comment: Befo re 10am 4.5-22.7 ug/dLAfter 5pm 1.7-14.1 ug/dL Performed By: #### M BF33, BMP3, CKMBS, CORTL ####[address] [place], [place] Cortisol 27.0 ug/dL Normal [facility] Comment on above: Result Comment: Befo re 10am 4.5-22.7 ug/dLAfter 5pm 1.7-14.1 ug/dL Performed By: #### I CA, CORTL, BMP3, PT/AP, HEMDF, ABG, FIBGN ####[address] [place], [place] Cortisol Totalon 03-27-2020 Cortisol 22.3 ug/dL [facility], [place] Comment on above: Before 10am 4.5-22.7 ug/dL After 5pm 1.7-14.1 ug/dL Test Performed by [facility], [address] [place] [address] [facility], [place] Cortisol 22.2 ug/dL [facility], [place] Comment on above: Before 10am 4.5-22.7 ug/dL After 5pm 1.7-14.1 ug/dL Test Performed by [facility], [address] [place] [address] [facility], [place] Cortisol 27.0 ug/dL [facility], [place] Comment on above: Before 10am 4.5-22.7 ug/dL After 5pm 1.7-14.1 ug/dL Test Performed by [email or web address], [address] [place] [address] [facility] ECHOCARDIOGRAM LIMITEDon Prabhu, [facility] Cardiology Results From [facility] - 03/27/2020 4:58 PM EDT LIMITED TRANSTHORACIC ECHOCARDIOGRAM PATIENT: Karen Kearns STUDY DATE: 03/27/2020 : 1940 AGE: 79 HT/WT: 177.8 cm (70 82.6 kg (181.6 in) lb) GENDER: M BP: 144 / 63 LOCATION: [facility] PATIENT Inpatient main STATUS: *ORDERING PHYSICIAN: * Elizabeth Miller MD *READING PHYSICIAN: * Emily Ferro *SWEATBAND MAKER: * Irais Burroughs RDCS, MD AE -- INDICATIONS: Pericardial effusion. -- CONCLUSIONS SUMMARY: 1. Left ventricle: Systolic function is hyperdynamic by the biplane method of disks. The estimated ejection fraction is 83%. 2. Pericardium, extracardiac: Trivial perciardial effusion at the apex. Extremely limited images. Cannot exclude small hematoma anterior to the heart. Limited views of the RV which does not appear compressed. -- STUDY DATA: Transthoracic echocardiography, limited study. Procedure: Image quality was poor. The study was technically limited due to restricted patient mobility, surgical dressings, body habitus, mechanical ventilation, respiratory interference, and supine position. Intravenous imaging enhancement (Definity) was administered to opacify the chamber. Definity lot #: [id number]. Limited 2D images were acquired and archived for permanent storage and are available for subsequent review. Study status: Routine. Patient status: Inpatient. -- FINDINGS LEFT VENTRICLE: Poorly visualized. Systolic function is hyperdynamic by the biplane method of disks. The estimated ejection fraction is 83%. RIGHT VENTRICLE: Linear density in the RV, likely Blair catheter. LEFT ATRIUM: Poorly visualized. The atrium is small. PERICARDIUM: Trivial perciardial effusion at the apex. Extremely limited images. Cannot exclude small hematoma anterior to the heart. Limited views of the RV which does not appear compressed. -- Measurements Left ventricle Value Reference Stroke volume/bsa, 1-p A2C 24.8 ml/m^2 --------- LV end-diastolic volume, 1-p A4C 73 ml 69 - 185 LV end-systolic volume, 1-p A4C (L) 13 ml 22 - 78 LV end-diastolic volume, 2-p 68 ml 62 - 150 LV end-systolic volume, 2-p (L) 12 ml 21 - 61 LV ejection fraction, 2-p (H) 83 % 52 - 72 Legend: (L) and (H) marcos values outside specified reference range. Electronically signed by Emily Ferro MD 03/27/2020 16:58 Prior Signatures: [employer]- [place], [place] LIMITED TRANSTHORACI C ECHOCARDIOGRAM PATIENT: Karen Kearns STUDY DATE: 03/27/2020 : 1940 AGE: 79 HT/WT: 177.8 cm (70 82.6 kg (181.6 in) lb) GENDER: M BP: 144 / 63 LOCATION: [facility] PATIENT Inpatient main STATUS: *ORDERING PHYSICIAN: * Elizabeth Miller MD *READING PHYSICIAN: * Emily Ferro *SWEATBAND MAKER: * Irais Burroughs RDCS, MD AE -- INDICATIONS: Pericardial effusion. -- CONCLUSIONS SUMMARY: 1. Left ventricle: Systolic function is hyperdynamic by the biplane method of disks. The estimated ejection fraction is 83%. 2. Pericardium, extracardiac: Trivial perciardial effusion at the apex. Extremely limited images. Cannot exclude small hematoma anterior to the heart. Limited views of the RV which does not appear compressed. -- STUDY DATA: Transthoracic echocardiography, limited study. Procedure: Image quality was poor. The study was technically limited due to restricted patient mobility, surgical dressings, body habitus, mechanical ventilation, respiratory interference, and supine position. Intravenous imaging enhancement (Definity) was administered to opacify the chamber. Definity lot #: [id number]. Limited 2D images were acquired and archived for permanent storage and are available for subsequent review. Study status: Routine. Patient status: Inpatient. -- FINDINGS LEFT VENTRICLE: Poorly visualized. Systolic function is hyperdynamic by the biplane method of disks. The estimated ejection fraction is 83%. RIGHT VENTRICLE: Linear density in the RV, likely Blair catheter. LEFT ATRIUM: Poorly visualized. The atrium is small. PERICARDIUM: Trivial perciardial effusion at the apex. Extremely limited images. Cannot exclude small hematoma anterior to the heart. Limited views of the RV which does not appear compressed. -- Measurements Left ventricle Value Reference Stroke volume/bsa, 1-p A2C 24.8 ml/m^2 --------- LV end-diastolic volume, 1-p A4C 73 ml 69 - 185 LV end-systolic volume, 1-p A4C (L) 13 ml 22 - 78 LV end-diastolic volume, 2-p 68 ml 62 - 150 LV end-systolic volume, 2-p (L) 12 ml 21 - 61 LV ejection fraction, 2-p (H) 83 % 52 - 72 Legend: (L) and (H) marcos values outside specified reference range. Electronically signed by Emily Ferro MD 03/27/2020 16:58 Prior Signatures: [facility] [place] E[facility] 12 leadon 03-27-2020 Prabhu, [facility] Incoming Cardiology Results From [employer] - 03/27/2020 1:43 PM EDT [facility] Test Date: 2020-03-27 Pat Name: Karen Milvia Department: 1[facility] Room: [facility] Gender: M Assistant Manager [place] [facility] [place] 1940 Requested By: ANGELY VALLECILLO Order Number: [id number] Reading MD: Sonny Shaffer Measurements Intervals [place] Rate: 102 P: 63 VT: 147 QRS: 63 QRSD: 90 T: 56 QT: 416 QTc: 543 Interpretive Statements Sinus tachycardia Prolonged QT interval Electronically Signed On 03-27-2020 13:42:17 EDT by Sonny Shaffer [facility] Test Date: 2020-03-27 Pat Name: Karen Kearns Department: 1[facility] Room: [facility] Gender: M Assistant Manager Quality [place] [facility] [place] 1940 Requested By: ANGELY VALLECILLO Order Number: [id number] Reading MD: Sonny Shaffer Measurements Intervals [place] Rate: 102 P: 63 VT: 147 QRS: 63 QRSD: 90 T: 56 QT: 416 QTc: 543 Interpretive Statements Sinus tachycardia Prolonged QT interval Electronically Signed On 03-27-2020 13:42:17 EDT by Sonny Shaffer [facility] Test Date: 2020-03-26 Pat Name: Karen Kearns Department: [facility] Room: [facility] Gender: M Assistant Manager Quality Management: : 1940 Requested By: ANGELY VALLECILLO Order Number: [id number] Reading MD: Mark Florence Measurements Intervals [place] Rate: 92 P: 70 VT: 156 QRS: 73 QRSD: 93 T: 4 QT: 349 QTc: 432 Interpretive Statements Sinus rhythm Non-specific ST depression inferior leads Electronically Signed On 03-27-2020 13:32:54 EDT by Mark Florence [facility], [place] Prabhu, 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: : 1940 Requested By: ANGELY VALLECILLO Order Number: [id number] Reading MD: Mark Florence Measurements Intervals [place] Rate: 92 P: 70 VT: 156 QRS: 73 QRSD: 93 T: 4 QT: 349 QTc: 432 Interpretive Statements Sinus rhythm Non-specific ST depression inferior leads Electronically Signed On 03-27-2020 13:32:54 EDT by Mark Florence [place], [place] Echo Limited Echo w/wo Contr hannah 03-27-2020 Echo Limited Echo w/wo Contrast Normal [facility] Fibrinogenon 03-27-2020 Fibrinogen 325 mg/dL Normal 200-400 [facility] Comment on above: Performed By: #### A BG, HEMDF, BMP3, PT/AP, LACT3, CORTL, LFT3, FIBGN, PHOS3 ####[facility] [address] [place] [address] Fibrinogen 325 mg/dL 200 - 400 mg/dL [facility], [place] Fibrinogen 318 mg/dL Normal 200-400 [facility] Comment on above: Performed By: #### P T/AP, ABG, CORTL, BMP3, LFT3, LACT3, FIBGN, ICA, HEMDF ####[facility] [address] [place] [address] Fibrinogen 318 mg/dL 200 - 400 mg/dL [facility], [place] Fibrinogen 288 mg/dL Normal 200-400 [facility] Comment on above: Performed By: #### L ACT3, ABG, FIBGN, ICA, HEMDF, PT/AP ####[facility] [id number] [place] [address] Fibrinogen 288 mg/dL 200 - 400 mg/dL [facility], [place] Fibrinogen 249 mg/dL Normal 200-400 [facility] Comment on above: Performed By: #### H EMDF, FIBGN, PT/AP, ICA, ABG ####[facility] [address] [place] [address] Fibrinogen 249 mg/dL 200 - 400 mg/dL [facility], [place] Fibrinogen 193 mg/dL Low 200-400 [facility] Comment on above: Performed By: #### I CA, CORTL, BMP3, PT/AP, HEMDF, ABG, FIBGN ####[facility] [address] [place] [address] Fibrinogen 193 mg/dL Low 200 - 400 mg/dL [facility], [place] Fibrinogen 155 mg/dL Low 200-400 [facility] Comment on above: Performed By: #### F IBGN, BMP3, ICA, ABG, HEMDF, PT/AP ####[facility] [address] [place] [address] Glucose,Bedsideon 03-27-2020 Glucose [Mass/Vol] 125 mg/dL High 70-100 [facility] Comment on above: Result Comment: Test performed by glucose meter. Results may be 10%-15% lowerthan serum/plasma values. (CLIA ID [id number]) Performed By: #### B GLU ####[employer] [address] [place] [address] Glucose [Mass/Vol] 121 mg/dL High 70-100 [facility] Comment on above: Result Comment: Test performed by glucose meter. Results may be 10%-15% lowerthan serum/plasma values. (CLIA ID [id number]) Performed By: #### B GLU ####[facility] [address] [place] [address] Glucose [Mass/Vol] 115 mg/dL High 70-100 [facility] Comment on above: Result Comment: Test performed by glucose meter. Results may be 10%-15% lowerthan serum/plasma values. (CLIA ID [id number]) Performed By: #### B GLU ####[employer] [address] [facility] [place] [address] Glucose [Mass/Vol] 118 mg/dL High 70-100 [facility] Comment on above: Result Comment: Test performed by glucose meter. Results may be 10%-15% lowerthan serum/plasma values. (CLIA ID [id number]) Performed By: #### B GLU ####[employer] [address] [place] [address] Glucose [Mass/Vol] 120 mg/dL High 70-100 [facility] Comment on above: Result Comment: Test performed by glucose meter. Results may be 10%-15% lowerthan serum/plasma values. (CLIA ID [id number]) Performed By: #### B GLU ####[employer] [place] [address] Glucose [Mass/Vol] 110 mg/dL High 70-100 [facility] Comment on above: Result Comment: Test performed by glucose meter. Results may be 10%-15% lowerthan serum/plasma values. (CLIA ID [id number]) Performed By: #### B GLU ####[employer] [place] [address] Glucose [Mass/Vol] 102 mg/dL High 70-100 [facility] Comment on above: Result Comment: Test performed by glucose meter. Results may be 10%-15% lowerthan serum/plasma values. (CLIA ID [id number]) Performed By: #### B GLU ####[employer] [place] [address] Glucose [Mass/Vol] 85 mg/dL Normal 70-100 [facility] Comment on above: Result Comment: Test performed by glucose meter. Results may be 10%-15% lowerthan serum/plasma values. (CLIA ID [id number]) Performed By: #### B GLU ####[employer] [place] [address] Glucose [Mass/Vol] 66 mg/dL Low 70-100 [facility] Comment on above: Result Comment: Test performed by glucose meter. Results may be 10%-15% lowerthan serum/plasma values. (CLIA ID [id number]) Performed By: #### B GLU ####[employer] [address] [place] [address] Glucose [Mass/Vol] 75 mg/dL Normal 70-100 [facility] Comment on above: Result Comment: Test performed by glucose meter. Results may be 10%-15% lowerthan serum/plasma values. (CLIA ID [id number]) Performed By: #### B GLU ####[address] [place] [address] Glucose [Mass/Vol] 93 mg/dL Normal 70-100 [facility] Comment on above: Result Comment: Test performed by glucose meter. Results may be 10%-15% lowerthan serum/plasma values. (CLIA ID [id number]) Performed By: #### B GLU ####[employer] [facility] [address] Glucose [Mass/Vol] 104 mg/dL High 70-100 [facility] Comment on above: Result Comment: Test performed by glucose meter. Results may be 10%-15% lowerthan serum/plasma values. (CLIA ID [id number]) Performed By: #### B GLU ####[employer] [facility] [address] Glucose [Mass/Vol] 92 mg/dL Normal 70-100 [facility] Comment on above: Result Comment: Test performed by glucose meter. Results may be 10%-15% lowerthan serum/plasma values. (CLIA ID [id number]) Performed By: #### B GLU ####[employer] [facility] [address] Glucose [Mass/Vol] 120 mg/dL High 70-100 [facility] Comment on above: Result Comment: Test performed by glucose meter. Results may be 10%-15% lowerthan serum/plasma values. (CLIA ID [id number]) Performed By: #### B GLU ####[employer] [place] [address] Glucose [Mass/Vol] 119 mg/dL High 70-100 [facility] Comment on above: Result Comment: Test performed by glucose meter. Results may be 10%-15% lowerthan serum/plasma values. (CLIA ID [id number]) Performed By: #### B GLU ####[address] [place] [address] Glucose [Mass/Vol] 127 mg/dL High 70-100 [facility] Comment on above: Result Comment: Test performed by glucose meter. Results may be 10%-15% lowerthan serum/plasma values. (CLIA ID [id number]) Performed By: #### B GLU ####[employer] [facility] [address] Glucose [Mass/Vol] 130 mg/dL High 70-100 [facility] Comment on above: Result Comment: Test performed by glucose meter. Results may be 10%-15% lowerthan serum/plasma values. (CLIA ID [id number]) Performed By: #### B GLU ####[address] [place] [address] Glucose [Mass/Vol] 125 mg/dL High 70-100 [facility] Comment on above: Result Comment: Test performed by glucose meter. Results may be 10%-15% lowerthan serum/plasma values. (CLIA ID [id number]) Performed By: #### B GLU ####[employer] [place] [address] Glucose [Mass/Vol] 151 mg/dL High 70-[address] [place] [address] Comment on above: Result Comment: Test performed by glucose meter. Results may be 10%-15% lowerthan serum/plasma values. (CLIA ID [id number]) Performed By: #### B GLU ####[employer] [place] [address] Glucose [Mass/Vol] 138 mg/dL High 70-100 [facility] Comment on above: Result Comment: Test performed by glucose meter. Results may be 10%-15% lowerthan serum/plasma values. (CLIA ID [id number]) Performed By: #### B GLU ####[address] [place] [address] Glucose [Mass/Vol] 118 mg/dL High 70-100 [facility] Comment on above: Result Comment: Test performed by glucose meter. Results may be 10%-15% lowerthan serum/plasma values. (CLIA ID [id number]) Performed By: #### B GLU ####[address] Hemoglobin AND Hematocriton 03-27-2020 Hematocrit (Bld) [Volume fraction] 25.7 % Low 40.0-52.0 [facility] Comment on above: Performed By: #### H GHCT ####[address] Hemoglobin (Bld) [Mass/Vol] 8.5 g/dL Low 13.0-18.0 [facility] Comment on above: Performed By: #### H GHCT ####[address] [place], [place] Hemoglobin and Hematocrit, B loodon 03-27-2020 Hematocrit (Bld) [Volume fraction] 25.7 % Low 40 - 52 % [place], [place] Hemoglobin (Bld) [Mass/Vol] 8.5 g/dL Low 13 - 18 g/dL [place], [place] Interpretation and review of laboratory results Abnormal [place], [place] Test Performed by [facility], [facility] [place], [place] [id number] [place] [address] Hemogram w/ Autodiffon 03-27 Abs Baso Cnt 0.0 10*3/uL Normal 0.0-0.2 [facility] Comment on above: Performed By: #### A BG, HEMDF, BMP3, PT/AP, LACT3, CORTL, LFT3, FIBGN, PHOS3 ####[address] [place], [place] Abs Neutrophile Cnt 7.8 10*3/uL High 1.8-7.0 [facility] Comment on above: Performed By: #### A BG, HEMDF, BMP3, PT/AP, LACT3, CORTL, LFT3, FIBGN, PHOS3 ####[address] Basophils/100 WBC (Bld) 0.3 % Normal 0.0-2.0 [facility] Comment on above: Performed By: #### A BG, HEMDF, BMP3, PT/AP, LACT3, CORTL, LFT3, FIBGN, PHOS3 ####[address] Eosinophils (Bld) [#/Vol] 0.0 10*3/uL Normal 0.0-0.5 [facility] Comment on above: Performed By: #### A BG, HEMDF, BMP3, PT/AP, LACT3, CORTL, LFT3, FIBGN, PHOS3 ####[address] Eosinophils/100 WBC (Bld) 0.2 % Low 1.0-6.0 [facility] Comment on above: Performed By: #### A BG, HEMDF, BMP3, PT/AP, LACT3, CORTL, LFT3, FIBGN, PHOS3 ####[address] Erythrocyte distribution width (RBC) [Ratio] 14.9 % High 11.5-14.5 [facility] Comment on above: Performed By: #### A BG, HEMDF, BMP3, PT/AP, LACT3, CORTL, LFT3, FIBGN, PHOS3 ####[address] Granulocytes/100 WBC (Bld) 64.4 % Normal 40.0-80.0 [facility] Comment on above: Performed By: #### A BG, HEMDF, BMP3, PT/AP, LACT3, CORTL, LFT3, FIBGN, PHOS3 ####[address] Hematocrit (Bld) [Volume fraction] 21.2 % Low 40.0-52.0 [facility] Comment on above: Performed By: #### A BG, HEMDF, BMP3, PT/AP, LACT3, CORTL, LFT3, FIBGN, PHOS3 ####[address] Hemoglobin (Bld) [Mass/Vol] 7.2 g/dL Low 13.0-18.0 [facility] Comment on above: Performed By: #### A BG, HEMDF, BMP3, PT/AP, LACT3, CORTL, LFT3, FIBGN, PHOS3 ####[address] [place], [place] Lymphocytes (Bld) [#/Vol] 2.8 10*3/uL Normal 1.0-4.3 [facility] Comment on above: Performed By: #### A BG, HEMDF, BMP3, PT/AP, LACT3, CORTL, LFT3, FIBGN, PHOS3 ####[address] [place], [place] Lymphocytes/100 WBC (Bld) 22.9 % Normal 20.0-40.0 [facility] Comment on above: Performed By: #### A BG, HEMDF, BMP3, PT/AP, LACT3, CORTL, LFT3, FIBGN, PHOS3 ####[address] MCH (RBC) [Entitic mass] 29.9 pg Normal 26.0-34.0 [facility] Comment on above: Performed By: #### A BG, HEMDF, BMP3, PT/AP, LACT3, CORTL, LFT3, FIBGN, PHOS3 ####[address] [place], [place] MCHC 34.0 % Normal 32.0-36.0 [facility] Comment on above: Performed By: #### A BG, HEMDF, BMP3, PT/AP, LACT3, CORTL, LFT3, FIBGN, PHOS3 ####[address] MCV (RBC) [Entitic vol] 87.9 fL Normal 80.0-98.0 [facility] Comment on above: Performed By: #### A BG, HEMDF, BMP3, PT/AP, LACT3, CORTL, LFT3, FIBGN, PHOS3 ####[address] [place], [place] Monocytes (Bld) [#/Vol] 1.5 10*3/uL High 0.0-0.8 [facility] Comment on above: Performed By: #### A BG, HEMDF, BMP3, PT/AP, LACT3, CORTL, LFT3, FIBGN, PHOS3 ####[address] [place], [place] Monocytes/100 WBC (Bld) 12.2 % High 2.0-10.0 [facility] Comment on above: Performed By: #### A BG, HEMDF, BMP3, PT/AP, LACT3, CORTL, LFT3, FIBGN, PHOS3 ####[address] [place], [place] Platelet mean volume (Bld) [Entitic vol] 8.9 fL Normal 7.4-10.4 [facility] Comment on above: Performed By: #### A BG, HEMDF, BMP3, PT/AP, LACT3, CORTL, LFT3, FIBGN, PHOS3 ####[address] [place], [place] Platelets (Bld) [#/Vol] 86 10*3/uL Low 140-440 [facility] Comment on above: Performed By: #### A BG, HEMDF, BMP3, PT/AP, LACT3, CORTL, LFT3, FIBGN, PHOS3 ####[address] [place], [place] RBC (Bld) [#/Vol] 2.41 10*6/uL Low 4.40-5.90 [facility] Comment on above: Performed By: #### A BG, HEMDF, BMP3, PT/AP, LACT3, CORTL, LFT3, FIBGN, PHOS3 ####[address] [place], [place] WBC (Bld) [#/Vol] 12.1 10*3/uL High 3.6-10.7 [facility] Comment on above: Performed By: #### A BG, HEMDF, BMP3, PT/AP, LACT3, CORTL, LFT3, FIBGN, PHOS3 ####[address] Abs Baso Cnt 0.0 10*3/uL Normal 0.0-0.2 [facility] Comment on above: Performed By: #### P T/AP, ABG, CORTL, BMP3, LFT3, LACT3, FIBGN, ICA, HEMDF ####[address] Abs Neutrophile Cnt 9.6 10*3/uL High 1.8-7.0 [facility] Comment on above: Performed By: #### P T/AP, ABG, CORTL, BMP3, LFT3, LACT3, FIBGN, ICA, HEMDF ####[address] Basophils/100 WBC (Bld) 0.2 % Normal 0.0-2.0 [facility] Comment on above: Performed By: #### P T/AP, ABG, CORTL, BMP3, LFT3, LACT3, FIBGN, ICA, HEMDF ####[address] Eosinophils (Bld) [#/Vol] 0.0 10*3/uL Normal 0.0-0.5 [facility] Comment on above: Performed By: #### P T/AP, ABG, CORTL, BMP3, LFT3, LACT3, FIBGN, ICA, HEMDF ####[address] Eosinophils/100 WBC (Bld) 0.0 % Low 1.0-6.0 [facility] Comment on above: Performed By: #### P T/AP, ABG, CORTL, BMP3, LFT3, LACT3, FIBGN, ICA, HEMDF ####[address] Erythrocyte distribution width (RBC) [Ratio] 14.8 % High 11.5-14.5 [facility] Comment on above: Performed By: #### P T/AP, ABG, CORTL, BMP3, LFT3, LACT3, FIBGN, ICA, HEMDF ####[address] Granulocytes/100 WBC (Bld) 61.4 % Normal 40.0-80.0 [facility] Comment on above: Performed By: #### P T/AP, ABG, CORTL, BMP3, LFT3, LACT3, FIBGN, ICA, HEMDF ####[address] Hematocrit (Bld) [Volume fraction] 24.6 % Low 40.0-52.0 [facility] Comment on above: Performed By: #### P T/AP, ABG, CORTL, BMP3, LFT3, LACT3, FIBGN, ICA, HEMDF ####[address] Hemoglobin (Bld) [Mass/Vol] 8.3 g/dL Low 13.0-18.0 [facility] Comment on above: Performed By: #### P T/AP, ABG, CORTL, BMP3, LFT3, LACT3, FIBGN, ICA, HEMDF ####[address] Lymphocytes (Bld) [#/Vol] 4.2 10*3/uL Normal 1.0-4.3 [facility] Comment on above: Performed By: #### P T/AP, ABG, CORTL, BMP3, LFT3, LACT3, FIBGN, ICA, HEMDF ####[address] Lymphocytes/100 WBC (Bld) 27.0 % Normal 20.0-40.0 [facility] Comment on above: Performed By: #### P T/AP, ABG, CORTL, BMP3, LFT3, LACT3, FIBGN, ICA, HEMDF ####[address] [place] MCH (RBC) [Entitic mass] 29.4 pg Normal 26.0-34.0 [facility] Comment on above: Performed By: #### P T/AP, ABG, CORTL, BMP3, LFT3, LACT3, FIBGN, ICA, HEMDF ####[address] MCHC 33.8 % Normal 32.0-36.0 [facility] Comment on above: Performed By: #### P T/AP, ABG, CORTL, BMP3, LFT3, LACT3, FIBGN, ICA, HEMDF ####[address] MCV (RBC) [Entitic vol] 87.0 fL Normal 80.0-98.0 [facility] Comment on above: Performed By: #### P T/AP, ABG, CORTL, BMP3, LFT3, LACT3, FIBGN, ICA, HEMDF ####[address] Monocytes (Bld) [#/Vol] 1.8 10*3/uL High 0.0-0.8 [facility] Comment on above: Performed By: #### P T/AP, ABG, CORTL, BMP3, LFT3, LACT3, FIBGN, ICA, HEMDF ####[address] Monocytes/100 WBC (Bld) 11.4 % High 2.0-10.0 [facility] Comment on above: Performed By: #### P T/AP, ABG, CORTL, BMP3, LFT3, LACT3, FIBGN, ICA, HEMDF ####[address] Platelet mean volume (Bld) [Entitic vol] 8.9 fL Normal 7.4-10.4 [facility] Comment on above: Performed By: #### P T/AP, ABG, CORTL, BMP3, LFT3, LACT3, FIBGN, ICA, HEMDF ####[address] [place], [place] Platelets (Bld) [#/Vol] 116 10*3/uL Low 140-440 [facility] Comment on above: Performed By: #### P T/AP, ABG, CORTL, BMP3, LFT3, LACT3, FIBGN, ICA, HEMDF ####[address] RBC (Bld) [#/Vol] 2.82 10*6/uL Low 4.40-5.90 [facility] Comment on above: Performed By: #### P T/AP, ABG, CORTL, BMP3, LFT3, LACT3, FIBGN, ICA, HEMDF ####[address] WBC (Bld) [#/Vol] 15.6 10*3/uL High 3.6-10.7 [facility] Comment on above: Performed By: #### P T/AP, ABG, CORTL, BMP3, LFT3, LACT3, FIBGN, ICA, HEMDF ####[address] Abs Baso Cnt 0.0 10*3/uL Normal 0.0-0.2 [facility] Comment on above: Performed By: #### L ACT3, ABG, FIBGN, ICA, HEMDF, PT/AP ####[address] Abs Neutrophile Cnt 10.9 10*3/uL High 1.8-7.0 [facility] Comment on above: Performed By: #### L ACT3, ABG, FIBGN, ICA, HEMDF, PT/AP ####[address] Basophils/100 WBC (Bld) 0.2 % Normal 0.0-2.0 [facility] Comment on above: Performed By: #### L ACT3, ABG, FIBGN, ICA, HEMDF, PT/AP ####[address] Eosinophils (Bld) [#/Vol] 0.0 10*3/uL Normal 0.0-0.5 [facility] Comment on above: Performed By: #### L ACT3, ABG, FIBGN, ICA, HEMDF, PT/AP ####[address] Eosinophils/100 WBC (Bld) 0.0 % Low 1.0-6.0 [facility] Comment on above: Performed By: #### L ACT3, ABG, FIBGN, ICA, HEMDF, PT/AP ####[address] Erythrocyte distribution width (RBC) [Ratio] 14.5 % Normal 11.5-14.5 [facility] Comment on above: Performed By: #### L ACT3, ABG, FIBGN, ICA, HEMDF, PT/AP ####[address] Granulocytes/100 WBC (Bld) 62.5 % Normal 40.0-80.0 [facility] Comment on above: Performed By: #### L ACT3, ABG, FIBGN, ICA, HEMDF, PT/AP ####[address] [place], [place] Hematocrit (Bld) [Volume fraction] 24.9 % Low 40.0-52.0 [facility] Comment on above: Performed By: #### L ACT3, ABG, FIBGN, ICA, HEMDF, PT/AP ####[address] Hemoglobin (Bld) [Mass/Vol] 8.5 g/dL Low 13.0-18.0 [facility] Comment on above: Performed By: #### L ACT3, ABG, FIBGN, ICA, HEMDF, PT/AP ####[address] Lymphocytes (Bld) [#/Vol] 4.4 10*3/uL High 1.0-4.3 [facility] Comment on above: Performed By: #### L ACT3, ABG, FIBGN, ICA, HEMDF, PT/AP ####[address] [place], [place] Lymphocytes/100 WBC (Bld) 25.4 % Normal 20.0-40.0 [facility] Comment on above: Performed By: #### L ACT3, ABG, FIBGN, ICA, HEMDF, PT/AP ####[address] MCH (RBC) [Entitic mass] 29.5 pg Normal 26.0-34.0 [facility] Comment on above: Performed By: #### L ACT3, ABG, FIBGN, ICA, HEMDF, PT/AP ####[address] MCHC 34.1 % Normal 32.0-36.0 [facility] Comment on above: Performed By: #### L ACT3, ABG, FIBGN, ICA, HEMDF, PT/AP ####[address] MCV (RBC) [Entitic vol] 86.5 fL Normal 80.0-98.0 [facility] Comment on above: Performed By: #### L ACT3, ABG, FIBGN, ICA, HEMDF, PT/AP ####[address] Monocytes (Bld) [#/Vol] 2.1 10*3/uL High 0.0-0.8 [facility] Comment on above: Performed By: #### L ACT3, ABG, FIBGN, ICA, HEMDF, PT/AP ####[address] [place], [place] Monocytes/100 WBC (Bld) 11.9 % High 2.0-10.0 [facility] Comment on above: Performed By: #### L ACT3, ABG, FIBGN, ICA, HEMDF, PT/AP ####[address] [place], [place] Platelet mean volume (Bld) [Entitic vol] 9.0 fL Normal 7.4-10.4 [facility] Comment on above: Performed By: #### L ACT3, ABG, FIBGN, ICA, HEMDF, PT/AP ####[address] [place], [place] Platelets (Bld) [#/Vol] 152 10*3/uL Normal 140-440 [facility] Comment on above: Performed By: #### L ACT3, ABG, FIBGN, ICA, HEMDF, PT/AP ####[address] [place], [place] RBC (Bld) [#/Vol] 2.88 10*6/uL Low 4.40-5.90 [facility] Comment on above: Performed By: #### L ACT3, ABG, FIBGN, ICA, HEMDF, PT/AP ####[address] WBC (Bld) [#/Vol] 17.5 10*3/uL High 3.6-10.7 [facility] Comment on above: Performed By: #### L ACT3, ABG, FIBGN, ICA, HEMDF, PT/AP ####[address] [place], [place] Abs Baso Cnt 0.0 10*3/uL Normal 0.0-0.2 [facility] Comment on above: Performed By: #### H EMDF, FIBGN, PT/AP, ICA, ABG ####[address] Abs Neutrophile Cnt 10.3 10*3/uL High 1.8-7.0 [facility] Comment on above: Performed By: #### H EMDF, FIBGN, PT/AP, ICA, ABG ####[address] Basophils/100 WBC (Bld) 0.2 % Normal 0.0-2.0 [facility] Comment on above: Performed By: #### H EMDF, FIBGN, PT/AP, ICA, ABG ####[address] [place], [place] Eosinophils (Bld) [#/Vol] 0.0 10*3/uL Normal 0.0-0.5 [facility] Comment on above: Performed By: #### H EMDF, FIBGN, PT/AP, ICA, ABG ####[address] Eosinophils/100 WBC (Bld) 0.0 % Low 1.0-6.0 [facility] Comment on above: Performed By: #### H EMDF, FIBGN, PT/AP, ICA, ABG ####[address] Erythrocyte distribution width (RBC) [Ratio] 14.1 % Normal 11.5-14.5 [facility] Comment on above: Performed By: #### H EMDF, FIBGN, PT/AP, ICA, ABG ####[address] Granulocytes/100 WBC (Bld) 70.5 % Normal 40.0-80.0 [facility] Comment on above: Performed By: #### H EMDF, FIBGN, PT/AP, ICA, ABG ####[address] Hematocrit (Bld) [Volume fraction] 23.7 % Low 40.0-52.0 [facility] Comment on above: Performed By: #### H EMDF, FIBGN, PT/AP, ICA, ABG ####[address] Hemoglobin (Bld) [Mass/Vol] 8.1 g/dL Low 13.0-18.0 [facility] Comment on above: Performed By: #### H EMDF, FIBGN, PT/AP, ICA, ABG ####[address] Lymphocytes (Bld) [#/Vol] 2.7 10*3/uL Normal 1.0-4.3 [facility] Comment on above: Performed By: #### H EMDF, FIBGN, PT/AP, ICA, ABG ####[address] Lymphocytes/100 WBC (Bld) 18.8 % Low 20.0-40.0 [facility] Comment on above: Performed By: #### H EMDF, FIBGN, PT/AP, ICA, ABG ####[address] MCH (RBC) [Entitic mass] 29.6 pg Normal 26.0-34.0 [facility] Comment on above: Performed By: #### H EMDF, FIBGN, PT/AP, ICA, ABG ####[address] MCHC 34.1 % Normal 32.0-36.0 [facility] Comment on above: Performed By: #### H EMDF, FIBGN, PT/AP, ICA, ABG ####[address] [place], [place] MCV (RBC) [Entitic vol] 86.8 fL Normal 80.0-98.0 [facility] Comment on above: Performed By: #### H EMDF, FIBGN, PT/AP, ICA, ABG ####[address] Monocytes (Bld) [#/Vol] 1.5 10*3/uL High 0.0-0.8 [facility] Comment on above: Performed By: #### H EMDF, FIBGN, PT/AP, ICA, ABG ####[address] Monocytes/100 WBC (Bld) 10.5 % High 2.0-10.0 [facility] Comment on above: Performed By: #### H EMDF, FIBGN, PT/AP, ICA, ABG ####[address] [place], [place] Platelet mean volume (Bld) [Entitic vol] 8.9 fL Normal 7.4-10.4 [facility] Comment on above: Performed By: #### H EMDF, FIBGN, PT/AP, ICA, ABG ####[address] [place], [place] Platelets (Bld) [#/Vol] 171 10*3/uL Normal 140-440 [facility] Comment on above: Performed By: #### H EMDF, FIBGN, PT/AP, ICA, ABG ####[address] [place], [place] RBC (Bld) [#/Vol] 2.73 10*6/uL Low 4.40-5.90 [facility] Comment on above: Performed By: #### H EMDF, FIBGN, PT/AP, ICA, ABG ####[address] WBC (Bld) [#/Vol] 14.6 10*3/uL High 3.6-10.7 [facility] Comment on above: Performed By: #### H EMDF, FIBGN, PT/AP, ICA, ABG ####[address] [place], [place] Abs Baso Cnt 0.0 10*3/uL Normal 0.0-0.2 [facility] Comment on above: Performed By: #### I CA, CORTL, BMP3, PT/AP, HEMDF, ABG, FIBGN ####[address] Abs Neutrophile Cnt 8.0 10*3/uL High 1.8-7.0 [facility] Comment on above: Performed By: #### I CA, CORTL, BMP3, PT/AP, HEMDF, ABG, FIBGN ####[address] Basophils/100 WBC (Bld) 0.2 % Normal 0.0-2.0 [facility] Comment on above: Performed By: #### I CA, CORTL, BMP3, PT/AP, HEMDF, ABG, FIBGN ####[address] [place], [place] Eosinophils (Bld) [#/Vol] 0.0 10*3/uL Normal 0.0-0.5 [facility] Comment on above: Performed By: #### I CA, CORTL, BMP3, PT/AP, HEMDF, ABG, FIBGN ####[address] Eosinophils/100 WBC (Bld) 0.0 % Low 1.0-6.0 [facility] Comment on above: Performed By: #### I CA, CORTL, BMP3, PT/AP, HEMDF, ABG, FIBGN ####[address] Erythrocyte distribution width (RBC) [Ratio] 14.3 % Normal 11.5-14.5 [facility] Comment on above: Performed By: #### I CA, CORTL, BMP3, PT/AP, HEMDF, ABG, FIBGN ####[address] Granulocytes/100 WBC (Bld) 67.7 % Normal 40.0-80.0 [facility] Comment on above: Performed By: #### I CA, CORTL, BMP3, PT/AP, HEMDF, ABG, FIBGN ####[address] Hematocrit (Bld) [Volume fraction] 26.6 % Low 40.0-52.0 [facility] Comment on above: Performed By: #### I CA, CORTL, BMP3, PT/AP, HEMDF, ABG, FIBGN ####[address] Hemoglobin (Bld) [Mass/Vol] 8.8 g/dL Low 13.0-18.0 [facility] Comment on above: Performed By: #### I CA, CORTL, BMP3, PT/AP, HEMDF, ABG, FIBGN ####[address] [place], [place] Lymphocytes (Bld) [#/Vol] 2.9 10*3/uL Normal 1.0-4.3 [facility] Comment on above: Performed By: #### I CA, CORTL, BMP3, PT/AP, HEMDF, ABG, FIBGN ####[address] [place], [place] Lymphocytes/100 WBC (Bld) 24.2 % Normal 20.0-40.0 [facility] Comment on above: Performed By: #### I CA, CORTL, BMP3, PT/AP, HEMDF, ABG, FIBGN ####[address] [place], [place] MCH (RBC) [Entitic mass] 29.5 pg Normal 26.0-34.0 [facility] Comment on above: Performed By: #### I CA, CORTL, BMP3, PT/AP, HEMDF, ABG, FIBGN ####[address] [place] MCHC 32.9 % Normal 32.0-36.0 [facility] Comment on above: Performed By: #### I CA, CORTL, BMP3, PT/AP, HEMDF, ABG, FIBGN ####[address] MCV (RBC) [Entitic vol] 89.6 fL Normal 80.0-98.0 [facility] Comment on above: Performed By: #### I CA, CORTL, BMP3, PT/AP, HEMDF, ABG, FIBGN ####[address] [place], [place] Monocytes (Bld) [#/Vol] 0.9 10*3/uL High 0.0-0.8 [facility] Comment on above: Performed By: #### I CA, CORTL, BMP3, PT/AP, HEMDF, ABG, FIBGN ####[address] [place], [place] Monocytes/100 WBC (Bld) 7.9 % Normal 2.0-10.0 [facility] Comment on above: Performed By: #### I CA, CORTL, BMP3, PT/AP, HEMDF, ABG, FIBGN ####[address] [place], [place] Platelet mean volume (Bld) [Entitic vol] 8.8 fL Normal 7.4-10.4 [facility] Comment on above: Performed By: #### I CA, CORTL, BMP3, PT/AP, HEMDF, ABG, FIBGN ####[address] [place], [place] Platelets (Bld) [#/Vol] 158 10*3/uL Normal 140-440 [facility] Comment on above: Performed By: #### I CA, CORTL, BMP3, PT/AP, HEMDF, ABG, FIBGN ####[address] [place], [place] RBC (Bld) [#/Vol] 2.97 10*6/uL Low 4.40-5.90 [facility] Comment on above: Performed By: #### I CA, CORTL, BMP3, PT/AP, HEMDF, ABG, FIBGN ####[address] [place], [place] WBC (Bld) [#/Vol] 11.9 10*3/uL High 3.6-10.7 [facility] Comment on above: Performed By: #### I CA, CORTL, BMP3, PT/AP, HEMDF, ABG, FIBGN ####[address] [place], [place] Hepatic Functionon 0 ALP [Catalytic activity/Vol] 29 U/L Low 38-126 [facility] Comment on above: Performed By: #### A BG, HEMDF, BMP3, PT/AP, LACT3, CORTL, LFT3, FIBGN, PHOS3 ####[address] [place], [place] ALT [Catalytic activity/Vol] 13 U/L Normal 0-49 [facility] Comment on above: Result Comment: The ALT test is performed by an updated assay method.Please note that the reference intervals have beenchanged and are now sex specific. Performed By: #### A BG, HEMDF, BMP3, PT/AP, LACT3, CORTL, LFT3, FIBGN, PHOS3 ####[address] [place], [place] AST [Catalytic activity/Vol] 38 U/L Normal 15-46 [facility] Comment on above: Performed By: #### A BG, HEMDF, BMP3, PT/AP, LACT3, CORTL, LFT3, FIBGN, PHOS3 ####[address] Bilirubin [Mass/Vol] 5.4 mg/dL High 0.2-1.3 [facility] Comment on above: Performed By: #### A BG, HEMDF, BMP3, PT/AP, LACT3, CORTL, LFT3, FIBGN, PHOS3 ####[address] Bilirubin.indirect [Mass/Vol] 2.4 mg/dL High 0.0-0.3 [facility] Comment on above: Performed By: #### A BG, HEMDF, BMP3, PT/AP, LACT3, CORTL, LFT3, FIBGN, PHOS3 ####[address] [place], [place] Protein [Mass/Vol] 4.7 g/dL Low 6.3-8.2 [facility] Comment on above: Performed By: #### A BG, HEMDF, BMP3, PT/AP, LACT3, CORTL, LFT3, FIBGN, PHOS3 ####[address] [place], [place] Albumin [Mass/Vol] 2.6 g/dL Low 3.5-5.0 [facility] Comment on above: Performed By: #### A BG, HEMDF, BMP3, PT/AP, LACT3, CORTL, LFT3, FIBGN, PHOS3 ####[address] [place] ALP [Catalytic activity/Vol] 30 U/L Low 38-126 [facility] Comment on above: Performed By: #### P T/AP, ABG, CORTL, BMP3, LFT3, LACT3, FIBGN, ICA, HEMDF ####[address] [place], [place] ALT [Catalytic activity/Vol] 12 U/L Normal 0-49 [facility] Comment on above: Result Comment: The ALT test is performed by an updated assay method.Please note that the reference intervals have beenchanged and are now sex specific. Performed By: #### P T/AP, ABG, CORTL, BMP3, LFT3, LACT3, FIBGN, ICA, HEMDF ####[address] AST [Catalytic activity/Vol] 39 U/L Normal 15-46 [facility] Comment on above: Performed By: #### P T/AP, ABG, CORTL, BMP3, LFT3, LACT3, FIBGN, ICA, HEMDF ####[address] Bilirubin [Mass/Vol] 4.6 mg/dL High 0.2-1.3 [facility] Comment on above: Performed By: #### P T/AP, ABG, CORTL, BMP3, LFT3, LACT3, FIBGN, ICA, HEMDF ####[address] Bilirubin.indirect [Mass/Vol] 1.8 mg/dL High 0.0-0.3 [facility] Comment on above: Performed By: #### P T/AP, ABG, CORTL, BMP3, LFT3, LACT3, FIBGN, ICA, HEMDF ####[address] [place], [place] Protein [Mass/Vol] 4.4 g/dL Low 6.3-8.2 [facility] Comment on above: Performed By: #### P T/AP, ABG, CORTL, BMP3, LFT3, LACT3, FIBGN, ICA, HEMDF ####[facility] [place], [place] Albumin [Mass/Vol] 2.3 g/dL Low 3.5-5.0 [facility] Comment on above: Performed By: #### P T/AP, ABG, CORTL, BMP3, LFT3, LACT3, FIBGN, ICA, HEMDF ####[address] [place], [place] Hepatic Function Panelon Albumin [Mass/Vol] 2.6 g/dL Low 3.5 - 5 g/dL [place], [place] ALP [Catalytic activity/Vol] 29 U/L Low 38 - 126 U/L [place], [place] ALT [Catalytic activity/Vol] 13 U/L 0 - 49 U/L [place] Comment on above: The ALT test is perf ormed by an updated assay method. Please note that the reference intervals have been changed and are now sex specific. AST [Catalytic activity/Vol] 38 U/L 15 - 46 U/L [place] Bilirubin Ql (U) 5.4 mg/dL High 0.2 - 1.3 mg/dL [place] Bilirubin.direct [Mass/Vol] 2.4 mg/dL High 0 - 0.3 mg/dL [place] Protein [Mass/Vol] 4.7 g/dL Low 6.3 - 8.2 g/dL [place] Albumin [Mass/Vol] 2.3 g/dL Low 3.5 - 5 g/dL [place], [place] ALP [Catalytic activity/Vol] 30 U/L Low 38 - 126 U/L [place] ALT [Catalytic activity/Vol] 12 U/L 0 - 49 U/L [place] Comment on above: The ALT test is perf ormed by an updated assay method. Please note that the reference intervals have been changed and are now sex specific. AST [Catalytic activity/Vol] 39 U/L 15 - 46 U/L [place] Bilirubin Ql (U) 4.6 mg/dL High 0.2 - 1.3 mg/dL [place] Bilirubin.direct [Mass/Vol] 1.8 mg/dL High 0 - 0.3 mg/dL [place] Interpretation and review of laboratory results Abnormal [place] Protein [Mass/Vol] 4.4 g/dL Low 6.3 - 8.2 g/dL [place] Test Performed by [facility], [address] [place] [id number] [place], [place] Lactic Acidon 03-27-2020 Lactate [Moles/Vol] 1.4 mmol/L Normal 0.7-2.0 [facility] Comment on above: Performed By: #### A BG, HEMDF, BMP3, PT/AP, LACT3, CORTL, LFT3, FIBGN, PHOS3 ####[address] [place], [place] Lactate [Moles/Vol] 1.8 mmol/L Normal 0.7-2.0 [facility] Comment on above: Performed By: #### P T/AP, ABG, CORTL, BMP3, LFT3, LACT3, FIBGN, ICA, HEMDF ####[address] [place], [place] Lactate [Moles/Vol] 2.9 mmol/L Critically high 0.7-2.0 [facility] Comment on above: Performed By: #### L ACT3, ABG, FIBGN, ICA, HEMDF, PT/AP ####[address] [place], [place] Lactate [Moles/Vol] 3.9 mmol/L Critically high 0.7-2.0 [facility] Comment on above: Performed By: #### L ACT3 ####[address] [facility] [place] [place] [address] Lactate [Moles/Vol] 4.4 mmol/L Critically high 0.7-2.0 [facility] Comment on above: Performed By: #### L ACT3 ####[facility] [facility] [place] [address] Lactate [Moles/Vol] 2.0 mmol/L Normal 0.7-2.0 [facility] Comment on above: Performed By: #### L ACT3 ####[facility] [facility] [place] [address] Lactic Acid, Plasmaon 2019 Lactate [Moles/Vol] 1.4 mmol/L 0.7 - 2 mmol/L [facility] Test Performed by [facility], [address] [place] [address] [facility] Lactate [Moles/Vol] 1.8 mmol/L 0.7 - 2 mmol/L [facility] Test Performed by [facility], [facility] [place] [address] [facility] Interpretation and review of laboratory results Abnormal [facility] Lactate [Moles/Vol] 2.9 mmol/L Critically high 0.7 - 2 mmol/L [facility] [place] Test Performed by [facility], [facility] [place] [address] [facility] [place] Interpretation and review of laboratory results Abnormal [facility] [place] Lactate [Moles/Vol] 3.9 mmol/L Critically high 0.7 - 2 mmol/L [facility] Test Performed by [facility], [facility] [place] [address] [facility] Interpretation and review of laboratory results Abnormal [facility] Lactate [Moles/Vol] 4.4 mmol/L Critically high 0.7 - 2 mmol/L [facility] [place] Test Performed by [facility], [facility] [place] [address] [facility] Leukodepleted Red Cellson Leukodepleted Red Cells Normal [facility] Comment on above: Performed By: #### S DP, CR5, LRC, PH5 ####[address] [address]#### FYA-A, ABID, E-A, LC-A ####[facility]#### TSGL ####[address] [address]#### PRP ####[address] [address] Leukodepleted Red Cells Normal [facility] Comment on above: Performed By: #### S DP, CR5, LRC, PH5 ####[address] [address]#### FYA-A, ABID, E-A, LC-A ####[facility]#### TSGL ####[address] [address]#### PRP ####[address] [address] Magnesiumon 03-27-2020 Magnesium [Mass/Vol] 2.2 mg/dL Normal 1.6-2.3 [facility] Comment on above: Performed By: #### M G3, BMP3 ####[address] [address] Magnesium [Mass/Vol] 2.2 mg/dL 1.6 - 2 .3 mg/dL [facility] [place] Op Noteon 03-27-2020 Op Note Normal [facility] Otheron 03-27-2020 Interpretation and review of laboratory results Abnormal [facility] Test Performed by [address] [address] [facility] Test Performed by [address] [address] [facility] [place] Interpretation and review of laboratory results Abnormal [facility] Test Performed by [address] [address] [facility] Test Performed by [facility], [address] [place] [address] [facility] [place] Interpretation and review of laboratory results Abnormal [facility] [place] Test Performed by [facility], [address] [place] [address] [facility] Test Performed by [facility], [address] [place] [address] [facility] Test Performed by [facility], [address] [place] [address] [facility] Interpretation and review of laboratory results Abnormal [facility] [place] Test Performed by [facility], [address] [place] [address] [facility] Test Performed by [facility], [facility] [address] [place] [address] [facility] Test Performed by [facility], [facility] [address] [place] [address] [facility] Interpretation and review of laboratory results Abnormal [facility] Test Performed by [facility], [address] [place] [address] [facility] Interpretation and review of laboratory results Abnormal [facility] Test Performed by [facility], [facility] [address] [place] [address] [facility] Interpretation and review of laboratory results Abnormal [facility] Test Performed by [facility], [address] [place] [address] [facility] POCT Glucoseon 03-27-2020 Glucose [Mass/Vol] 109 mg/dL High 70 - 100 mg/dL [facility] [place] Comment on above: Test performed by gl ucose meter. Results may be 10%-15% lower than serum/plasma values. (CLIA ID [id number]) Interpretation and review of laboratory results Abnormal [facility] [place] Test Performed by [facility], [address] [place] [address] [facility] Glucose [Mass/Vol] 115 mg/dL High 70 - 100 mg/dL [facility] [place] Comment on above: Test performed by gl ucose meter. Results may be 10%-15% lower than serum/plasma values. (CLIA ID [id number]) Interpretation and review of laboratory results Abnormal [facility] [place] Test Performed by [facility], [address] [place] [address] [facility] Glucose [Mass/Vol] 125 mg/dL High 70 - 100 mg/dL [facility] Comment on above: Test performed by gl ucose meter. Results may be 10%-15% lower than serum/plasma values. (CLIA ID [id number]) Interpretation and review of laboratory results Abnormal [facility] [place] Test Performed by [facility], [address] [place] [address] [facility] Glucose [Mass/Vol] 121 mg/dL High 70 - 100 mg/dL [facility] Comment on above: Test performed by gl ucose meter. Results may be 10%-15% lower than serum/plasma values. (CLIA ID [id number]) Interpretation and review of laboratory results Abnormal [facility] [place] Test Performed by [email or web address], [address] [place] [address] [facility] Glucose [Mass/Vol] 115 mg/dL High 70 - 100 mg/dL [facility] Comment on above: Test performed by gl ucose meter. Results may be 10%-15% lower than serum/plasma values. (CLIA ID [id number]) Interpretation and review of laboratory results Abnormal [facility] Test Performed by [email or web address], [address] [place] [address] [facility] Glucose [Mass/Vol] 118 mg/dL High 70 - 100 mg/dL [facility] Comment on above: Test performed by gl ucose meter. Results may be 10%-15% lower than serum/plasma values. (CLIA ID [id number]) Interpretation and review of laboratory results Abnormal [facility] Test Performed by [email or web address], [address] [place] [address] [facility] Glucose [Mass/Vol] 120 mg/dL High 70 - 100 mg/dL [facility] Comment on above: Test performed by gl ucose meter. Results may be 10%-15% lower than serum/plasma values. (CLIA ID [id number]) Interpretation and review of laboratory results Abnormal [facility] [place] Test Performed by [facility], [address] [place] [address] [facility] Glucose [Mass/Vol] 110 mg/dL High 70 - 100 mg/dL [facility] [place] Comment on above: Test performed by gl ucose meter. Results may be 10%-15% lower than serum/plasma values. (CLIA ID [id number]) Interpretation and review of laboratory results Abnormal [facility] [place] Test Performed by [facility], [address] [place] [address] [facility] Glucose [Mass/Vol] 102 mg/dL High 70 - 100 mg/dL [facility] [place] Comment on above: Test performed by gl ucose meter. Results may be 10%-15% lower than serum/plasma values. (CLIA ID [id number]) Interpretation and review of laboratory results Abnormal [facility] [place] Test Performed by [facility], [address] [place] [address] [facility] Glucose [Mass/Vol] 85 mg/dL 70 - 100 mg/dL [facility] [place] Comment on above: Test performed by gl ucose meter. Results may be 10%-15% lower than serum/plasma values. (CLIA ID [id number]) Test Performed by [facility], [address] [place] [address] [facility] [place] Glucose [Mass/Vol] 66 mg/dL Low 70 - 100 mg/dL [facility] [place] Comment on above: Test performed by gl ucose meter. Results may be 10%-15% lower than serum/plasma values. (CLIA ID [id number]) Interpretation and review of laboratory results Abnormal [facility] [place] Test Performed by [facility], [address] [place] [address] [facility] [place] Glucose [Mass/Vol] 75 mg/dL 70 - 100 mg/dL [facility], [place] Comment on above: Test performed by gl ucose meter. Results may be 10%-15% lower than serum/plasma values. (CLIA ID [id number]) Test Performed by [facility], [address] [place] [address] [facility], [place] Glucose [Mass/Vol] 93 mg/dL 70 - 100 mg/dL [facility], [place] Comment on above: Test performed by gl ucose meter. Results may be 10%-15% lower than serum/plasma values. (CLIA ID [id number]) Glucose [Mass/Vol] 104 mg/dL High 70 - 100 mg/dL [facility], [place] Comment on above: Test performed by gl ucose meter. Results may be 10%-15% lower than serum/plasma values. (CLIA ID [id number]) Interpretation and review of laboratory results Abnormal [facility], [place] Test Performed by [facility], [facility] [place] [address] [facility], [place] Glucose [Mass/Vol] 92 mg/dL 70 - 100 mg/dL [place], [place] Comment on above: Test performed by gl ucose meter. Results may be 10%-15% lower than serum/plasma values. (CLIA ID [id number]) Test Performed by [facility], [address] [place] [address] [place], [place] Glucose [Mass/Vol] 120 mg/dL High 70 - 100 mg/dL [place] Comment on above: Test performed by gl ucose meter. Results may be 10%-15% lower than serum/plasma values. (CLIA ID [id number]) Interpretation and review of laboratory results Abnormal [facility], [place] Test Performed by [facility], [address] [place] [address] [facility], [place] Glucose [Mass/Vol] 119 mg/dL High 70 - 100 mg/dL [facility], [place] Comment on above: Test performed by gl ucose meter. Results may be 10%-15% lower than serum/plasma values. (CLIA ID [id number]) Interpretation and review of laboratory results Abnormal [facility] [place] Test Performed by [facility], [address] [place] [address] [facility] Glucose [Mass/Vol] 127 mg/dL High 70 - 100 mg/dL [facility] Comment on above: Test performed by gl ucose meter. Results may be 10%-15% lower than serum/plasma values. (CLIA ID [id number]) Interpretation and review of laboratory results Abnormal [facility] Test Performed by [facility], [address] [place] [address] [facility] Glucose [Mass/Vol] 130 mg/dL High 70 - 100 mg/dL [facility] Comment on above: Test performed by gl ucose meter. Results may be 10%-15% lower than serum/plasma values. (CLIA ID [id number]) Interpretation and review of laboratory results Abnormal [facility] Test Performed by [facility], [address] [place] [address] [facility] Glucose [Mass/Vol] 125 mg/dL High 70 - 100 mg/dL [facility] Comment on above: Test performed by gl ucose meter. Results may be 10%-15% lower than serum/plasma values. (CLIA ID [id number]) Interpretation and review of laboratory results Abnormal [facility] Test Performed by [facility], [address] [place] [address] [facility] Glucose [Mass/Vol] 151 mg/dL High 70 - 100 mg/dL [facility] Comment on above: Test performed by gl ucose meter. Results may be 10%-15% lower than serum/plasma values. (CLIA ID [id number]) Interpretation and review of laboratory results Abnormal [facility] Test Performed by [facility], [address] [place] [address] [facility] Glucose [Mass/Vol] 138 mg/dL High 70 - 100 mg/dL [facility] Comment on above: Test performed by gl ucose meter. Results may be 10%-15% lower than serum/plasma values. (CLIA ID [id number]) POOLED CRYO-5 PKon 0 POOLED CRYO-5 PK Normal [facility] Comment on above: Performed By: #### S DP, CR5, LRC, PH5 ####[address] [address]#### FYA-A, ABID, E-A, LC-A ####[facility]#### TSGL ####[address] [place], [place] [address]#### PRP ####[address] [address] PREPARE RBC (CROSSMATCH), 1 Unitson 03-27-2020 ABO and Rh group Nom (Bld) 5100 [place], [place] Blood product unit ID (Dose) [#] [id number] [place] Sodium [Moles/Vol] [id number] [place] Sodium [Moles/Vol] transfused [place], [place] Sodium [Moles/Vol] [id number] mmol/L [place] PROTIME/INR & PTTon 03-27-20 20 aPTT Coag (Bld) [Time] 47.8 s High 20 - 30.5 s [place] Comment on above: NOTE: The therapeuti c time for Heparin anticoagulation, based on Xa activity inhibition, is an APTT of 46-80 seconds. INR Coag (PPP) [Relative time] 1.5 {INR} High [place] Comment on above: Recommended Anticoag ulant Therapy: SEE BELOW ----- INR of 2.0 - 3.0 : - Prophylaxis of Venous Thrombosis (high-risk surgery) - Treatment of Venous Thrombosis - Treatment of Pulmonary Embolism (Includes tissue heart valves, Acute Myocardial Infarction to prevent systemic embolism, Valvular Heart Disease, and Atrial Fibrillation) ----- INR of 2.5 - 3.5 : - Mechanical Prosthetic Valves (high risk) - If oral anticoagulant therapy is used to prevent Myocardial Infarction Interpretation and review of laboratory results Abnormal [place], [place] PT Coag (PPP) [Time] 15.6 s High 9 - 12 s [place], [place] Comment on above: . aPTT Coag (Bld) [Time] 40.4 s High 20 - 30.5 s [place] Comment on above: NOTE: The therapeuti c time for Heparin anticoagulation, based on Xa activity inhibition, is an APTT of 46-80 seconds. INR Coag (PPP) [Relative time] 1.3 {INR} [place] Comment on above: Recommended Anticoag ulant Therapy: SEE BELOW ----- INR of 2.0 - 3.0 : - Prophylaxis of Venous Thrombosis (high-risk surgery) - Treatment of Venous Thrombosis - Treatment of Pulmonary Embolism (Includes tissue heart valves, Acute Myocardial Infarction to prevent systemic embolism, Valvular Heart Disease, and Atrial Fibrillation) ----- INR of 2.5 - 3.5 : - Mechanical Prosthetic Valves (high risk) - If oral anticoagulant therapy is used to prevent Myocardial Infarction Interpretation and review of laboratory results Abnormal [place], [place] PT Coag (PPP) [Time] 14 s High 9 - 12 s [place], [place] Comment on above: . aPTT Coag (Bld) [Time] 35 s High 20 - 30.5 s [place] Comment on above: NOTE: The therapeuti c time for Heparin anticoagulation, based on Xa activity inhibition, is an APTT of 46-80 seconds. INR Coag (PPP) [Relative time] 1.2 {INR} [place], [place] Comment on above: Recommended Anticoag ulant Therapy: SEE BELOW ----- INR of 2.0 - 3.0 : - Prophylaxis of Venous Thrombosis (high-risk surgery) - Treatment of Venous Thrombosis - Treatment of Pulmonary Embolism (Includes tissue heart valves, Acute Myocardial Infarction to prevent systemic embolism, Valvular Heart Disease, and Atrial Fibrillation) ----- INR of 2.5 - 3.5 : - Mechanical Prosthetic Valves (high risk) - If oral anticoagulant therapy is used to prevent Myocardial Infarction Interpretation and review of laboratory results Abnormal [place] PT Coag (PPP) [Time] 13.3 s High 9 - 12 s [place] Comment on above: . aPTT Coag (Bld) [Time] 32.1 s High 20 - 30.5 s [place] Comment on above: NOTE: The therapeuti c time for Heparin anticoagulation, based on Xa activity inhibition, is an APTT of 46-80 seconds. INR Coag (PPP) [Relative time] 1.2 {INR} [place] Comment on above: Recommended Anticoag ulant Therapy: SEE BELOW ----- INR of 2.0 - 3.0 : - Prophylaxis of Venous Thrombosis (high-risk surgery) - Treatment of Venous Thrombosis - Treatment of Pulmonary Embolism (Includes tissue heart valves, Acute Myocardial Infarction to prevent systemic embolism, Valvular Heart Disease, and Atrial Fibrillation) ----- INR of 2.5 - 3.5 : - Mechanical Prosthetic Valves (high risk) - If oral anticoagulant therapy is used to prevent Myocardial Infarction Interpretation and review of laboratory results Abnormal [place] PT Coag (PPP) [Time] 13 s High 9 - 12 s [place] Comment on above: . aPTT Coag (Bld) [Time] 33.9 s High 20 - 30.5 s [place] Comment on above: NOTE: The therapeuti c time for Heparin anticoagulation, based on Xa activity inhibition, is an APTT of 46-80 seconds. INR Coag (PPP) [Relative time] 1.2 {INR} [place], [place] Comment on above: Recommended Anticoag ulant Therapy: SEE BELOW ----- INR of 2.0 - 3.0 : - Prophylaxis of Venous Thrombosis (high-risk surgery) - Treatment of Venous Thrombosis - Treatment of Pulmonary Embolism (Includes tissue heart valves, Acute Myocardial Infarction to prevent systemic embolism, Valvular Heart Disease, and Atrial Fibrillation) ----- INR of 2.5 - 3.5 : - Mechanical Prosthetic Valves (high risk) - If oral anticoagulant therapy is used to prevent Myocardial Infarction PT Coag (PPP) [Time] 13.3 s High 9 - 12 s [place] Comment on above: . Pheresis Leuko Reducedon Pheresis Leuko Reduced Normal [facility] Comment on above: Performed By: #### S DP, CR5, LRC, PH5 ####[address] [address]#### FYA-A, ABID, E-A, LC-A ####[facility]#### TSGL ####[facility] [facility], [place] [address]#### PRP ####[facility] [place] [address] Phosphoruson 03-27-2020 Phosphate [Mass/Vol] 3.2 mg/dL 2.5 - 4 .5 mg/dL [place], [place] Test Performed by [facility], [address] [facility] [place] [address] [place], [place] Protime AND APTTon 0 aPTT Coag (Bld) [Time] 47.8 s High 20.0-30.5 [facility] Comment on above: Result Comment: NOTE : The therapeutic time for Heparin anticoagulation,based on Xa activity inhibition, is an APTT of 46-80seconds. Performed By: #### A BG, HEMDF, BMP3, PT/AP, LACT3, CORTL, LFT3, FIBGN, PHOS3 ####[address] [place] [address] INR 1.5 High 0.9-1.1 [facility] Comment on above: Result Comment: Ty mmended Anticoagulant Therapy: SEE BELOW----- INR of 2.0 - 3.0 : - Prophylaxis of Venous Thrombosis (high-risk surgery) - Treatment of Venous Thrombosis - Treatment of Pulmonary Embolism (Includes tissue heart valves, Acute Myocardial Infarction to prevent systemic embolism, Valvular Heart Disease, and Atrial Fibrillation)----- INR of 2.5 - 3.5 : - Mechanical Prosthetic Valves (high risk) - If oral anticoagulant therapy is used to prevent Myocardial Infarction Performed By: #### A BG, HEMDF, BMP3, PT/AP, LACT3, CORTL, LFT3, FIBGN, PHOS3 ####[address] [place] [address] PT Coag (PPP) [Time] 15.6 s High 9.0-12.0 [facility] Comment on above: Result Comment: . Performed By: #### A BG, HEMDF, BMP3, PT/AP, LACT3, CORTL, LFT3, FIBGN, PHOS3 ####[facility] [address] [place], [place] aPTT Coag (Bld) [Time] 40.4 s High 20.0-30.5 [facility] Comment on above: Result Comment: NOTE : The therapeutic time for Heparin anticoagulation,based on Xa activity inhibition, is an APTT of 46-80seconds. Performed By: #### P T/AP, ABG, CORTL, BMP3, LFT3, LACT3, FIBGN, ICA, HEMDF ####[facility] [address] [place], [place] INR 1.3 High 0.9-1.1 [facility] Comment on above: Result Comment: Ty mmended Anticoagulant Therapy: SEE BELOW----- INR of 2.0 - 3.0 : - Prophylaxis of Venous Thrombosis (high-risk surgery) - Treatment of Venous Thrombosis - Treatment of Pulmonary Embolism (Includes tissue heart valves, Acute Myocardial Infarction to prevent systemic embolism, Valvular Heart Disease, and Atrial Fibrillation)----- INR of 2.5 - 3.5 : - Mechanical Prosthetic Valves (high risk) - If oral anticoagulant therapy is used to prevent Myocardial Infarction Performed By: #### P T/AP, ABG, CORTL, BMP3, LFT3, LACT3, FIBGN, ICA, HEMDF ####[facility] [id number] [place], [place] PT Coag (PPP) [Time] 14.0 s High 9.0-12.0 [facility] Comment on above: Result Comment: . Performed By: #### P T/AP, ABG, CORTL, BMP3, LFT3, LACT3, FIBGN, ICA, HEMDF ####[facility] [id number] [place], [place] aPTT Coag (Bld) [Time] 35.0 s High 20.0-30.5 [facility] Comment on above: Result Comment: NOTE : The therapeutic time for Heparin anticoagulation,based on Xa activity inhibition, is an APTT of 46-80seconds. Performed By: #### L ACT3, ABG, FIBGN, ICA, HEMDF, PT/AP ####[facility] [id number] [place], [place] INR 1.2 High 0.9-1.1 [facility] Comment on above: Result Comment: Ty mmended Anticoagulant Therapy: SEE BELOW----- INR of 2.0 - 3.0 : - Prophylaxis of Venous Thrombosis (high-risk surgery) - Treatment of Venous Thrombosis - Treatment of Pulmonary Embolism (Includes tissue heart valves, Acute Myocardial Infarction to prevent systemic embolism, Valvular Heart Disease, and Atrial Fibrillation)----- INR of 2.5 - 3.5 : - Mechanical Prosthetic Valves (high risk) - If oral anticoagulant therapy is used to prevent Myocardial Infarction Performed By: #### L ACT3, ABG, FIBGN, ICA, HEMDF, PT/AP ####[facility] [address] PT Coag (PPP) [Time] 13.3 s High 9.0-12.0 [facility] Comment on above: Result Comment: . Performed By: #### L ACT3, ABG, FIBGN, ICA, HEMDF, PT/AP ####[facility] [id number] [place], [place] aPTT Coag (Bld) [Time] 32.1 s High 20.0-30.5 [facility] Comment on above: Result Comment: NOTE : The therapeutic time for Heparin anticoagulation,based on Xa activity inhibition, is an APTT of 46-80seconds. Performed By: #### H EMDF, FIBGN, PT/AP, ICA, ABG ####[facility] [id number] [place], [place] INR 1.2 High 0.9-1.1 [facility] Comment on above: Result Comment: Ty mmended Anticoagulant Therapy: SEE BELOW----- INR of 2.0 - 3.0 : - Prophylaxis of Venous Thrombosis (high-risk surgery) - Treatment of Venous Thrombosis - Treatment of Pulmonary Embolism (Includes tissue heart valves, Acute Myocardial Infarction to prevent systemic embolism, Valvular Heart Disease, and Atrial Fibrillation)----- INR of 2.5 - 3.5 : - Mechanical Prosthetic Valves (high risk) - If oral anticoagulant therapy is used to prevent Myocardial Infarction Performed By: #### H EMDF, FIBGN, PT/AP, ICA, ABG ####[facility] [id number] [place], [place] PT Coag (PPP) [Time] 13.0 s High 9.0-12.0 [facility] [address] Comment on above: Result Comment: . Performed By: #### H EMDF, FIBGN, PT/AP, ICA, ABG ####[facility] [address] [place], [place] aPTT Coag (Bld) [Time] 33.9 s High 20.0-30.5 [facility] Comment on above: Result Comment: NOTE : The therapeutic time for Heparin anticoagulation,based on Xa activity inhibition, is an APTT of 46-80seconds. Performed By: #### I CA, CORTL, BMP3, PT/AP, HEMDF, ABG, FIBGN ####[facility] [address] INR 1.2 High 0.9-1.1 [facility] Comment on above: Result Comment: Ty mmended Anticoagulant Therapy: SEE BELOW----- INR of 2.0 - 3.0 : - Prophylaxis of Venous Thrombosis (high-risk surgery) - Treatment of Venous Thrombosis - Treatment of Pulmonary Embolism (Includes tissue heart valves, Acute Myocardial Infarction to prevent systemic embolism, Valvular Heart Disease, and Atrial Fibrillation)----- INR of 2.5 - 3.5 : - Mechanical Prosthetic Valves (high risk) - If oral anticoagulant therapy is used to prevent Myocardial Infarction Performed By: #### I CA, CORTL, BMP3, PT/AP, HEMDF, ABG, FIBGN ####[facility] [id number] [place], [place] PT Coag (PPP) [Time] 13.3 s High 9.0-12.0 [facility] [place] Comment on above: Result Comment: . Performed By: #### I CA, CORTL, BMP3, PT/AP, HEMDF, ABG, FIBGN ####[address] [place], [place] aPTT Coag (Bld) [Time] 41.9 s High 20.0-30.5 [facility] Comment on above: Result Comment: NOTE : The therapeutic time for Heparin anticoagulation,based on Xa activity inhibition, is an APTT of 46-80seconds. Performed By: #### F IBGN, BMP3, ICA, ABG, HEMDF, PT/AP ####[address] [place], [place] INR 1.3 High 0.9-1.1 [facility] Comment on above: Result Comment: Ty mmended Anticoagulant Therapy: SEE BELOW----- INR of 2.0 - 3.0 : - Prophylaxis of Venous Thrombosis (high-risk surgery) - Treatment of Venous Thrombosis - Treatment of Pulmonary Embolism (Includes tissue heart valves, Acute Myocardial Infarction to prevent systemic embolism, Valvular Heart Disease, and Atrial Fibrillation)----- INR of 2.5 - 3.5 : - Mechanical Prosthetic Valves (high risk) - If oral anticoagulant therapy is used to prevent Myocardial Infarction Performed By: #### F IBGN, BMP3, ICA, ABG, HEMDF, PT/AP ####[address] [place], [place] PT Coag (PPP) [Time] 13.5 s High 9.0-12.0 [facility] Comment on above: Result Comment: . Performed By: #### F IBGN, BMP3, ICA, ABG, HEMDF, PT/AP ####[address] [place], [place] Surgical Pathologyon 020 Surgical Pathology Normal [facility] XR CHEST PORTABLEon 03-27-20 Patient Name: KAREN KEARNS ---Diagnostic Radiology--- Exam Date/Time 03/27/2020 06:08:19 EDT Exam CR Chest Portable Ordering Physician [id number] CARSON Accession Number [id number] CPT4 Codes 50624 () Reason For Exam Shortness of breath Report PORTABLE CHEST X-RAY CLINICAL INDICATION: Shortness of breath A portable frontal view of the chest was obtained. COMPARISON: 03/26/2020 FINDINGS: The heart size is within normal limits. Sternotomy wires, endotracheal tube, feeding tube, right jugular Blair-Dhaval catheter, and bilateral chest tubes are unchanged in position. Low lung volumes are noted, with bilateral basilar atelectasis, similar to the prior study. No large pleural effusion or evidence of pneumothorax is seen. There are degenerative changes of the spine. IMPRESSION: No significant change when compared with the previous study. Report Dictated on --- Final --- Dictated: 03/27/2020 7:34 am Dictating Physician: MD GRAHAM JONATHAN R Signed Date and Time: 03/27/2020 7:35 am Signed by: MD GRAHAM JONATHAN R Transcribed Date and Time: 03/27/2020 7:34 [facility] [place], [place] Pr[facility]hu, [facility] Incoming Radiology Results From [facility] - 03/27/2020 7:36 AM EDT Patient Name: KAREN KEARNS ---Diagnostic Radiology--- Exam Date/Time 03/27/2020 06:08:19 EDT Exam CR Chest Portable Ordering Physician ANGELY MELTON Accession Number [id number] CPT4 Codes 74921 () Reason For Exam Shortness of breath Report PORTABLE CHEST X-RAY CLINICAL INDICATION: Shortness of breath A portable frontal view of the chest was obtained. COMPARISON: 03/26/2020 FINDINGS: The heart size is within normal limits. Sternotomy wires, endotracheal tube, feeding tube, right jugular Blair-Dhaval catheter, and bilateral chest tubes are unchanged in position. Low lung volumes are noted, with bilateral basilar atelectasis, similar to the prior study. No large pleural effusion or evidence of pneumothorax is seen. There are degenerative changes of the spine. IMPRESSION: No significant change when compared with the previous study. Report Dictated on --- Final --- Dictated: 03/27/2020 7:34 am Dictating Physician: MD GRAHAM JONATHAN R Signed Date and Time: 03/27/2020 7:35 am Signed by: MD GRAHAM JONATHAN R Transcribed Date and Time: 03/27/2020 7:34 [facility] [place], [place] Arterial Blood Gaseson 03-26 CO2 [Moles/Vol] 21.8 mmol/L Low 23.0-27.0 [facility] Comment on above: Performed By: #### F IBGN, BMP3, ICA, ABG, HEMDF, PT/AP ####[facility] [id number] [place], [place] HCO3 (Bld) [Moles/Vol] 20.8 mmol/L Low 21.0-25.0 [facility] Comment on above: Performed By: #### F IBGN, BMP3, ICA, ABG, HEMDF, PT/AP ####[facility] [id number] [place], [place] Hemoglobin (Bld) [Mass/Vol] 7.8 g/dL Normal ScreenOnly [facility] Comment on above: Performed By: #### F IBGN, BMP3, ICA, ABG, HEMDF, PT/AP ####[facility] [id number] [place], [place] Oxygen (Bld) [Partial pressure] 148.9 mm[Hg] High 80.0-100.0 [facility] Comment on above: Result Comment: This sample was received in the lab on ice and/oranalysis was delayed beyond the recommended 30minutes. Low temperatures cause artefactual increasesin pO2. Delay in analysis at room temperature cancause artefactual decreases in pO2, and sO2, and pHwith increase in pCO2. It is recommended that resultsbe correlated clinically and the sample be recollectedand analyzed promptly if clinically indicated. Performed By: #### F IBGN, BMP3, ICA, ABG, HEMDF, PT/AP ####[facility] [address] [place], [place] Oxygen saturation in Blood 98.5 % Normal 95.0-100.0 [facility] Comment on above: Performed By: #### F IBGN, BMP3, ICA, ABG, HEMDF, PT/AP ####[facility] [id number] [place], [place] pCO2 33.4 mm[Hg] Low 35.0-45.0 [facility] Comment on above: Performed By: #### F IBGN, BMP3, ICA, ABG, HEMDF, PT/AP ####[address] [place], [place] pH 7.412 Normal 7.350-7.450 [facility] Comment on above: Performed By: #### F IBGN, BMP3, ICA, ABG, HEMDF, PT/AP ####[address] [place], [place] Std Base Excess -3.4 mmol/L Low -3.0-3.0 [facility] Comment on above: Performed By: #### F IBGN, BMP3, ICA, ABG, HEMDF, PT/AP ####[address] [place], [place] FIO2 0 Normal [facility] Comment on above: Performed By: #### F IBGN, BMP3, ICA, ABG, HEMDF, PT/AP ####[address] [place] [place], [place] CO2 [Moles/Vol] 22.1 mmol/L Low 23.0-27.0 [facility] Comment on above: Performed By: #### I CA, ABG, PT/AP, HEMOG, MG3, BMP3, PHOS3 ####[address] [place], [place] HCO3 (Bld) [Moles/Vol] 20.9 mmol/L Low 21.0-25.0 [facility] Comment on above: Performed By: #### I CA, ABG, PT/AP, HEMOG, MG3, BMP3, PHOS3 ####[address] [place], [place] Hemoglobin (Bld) [Mass/Vol] 8.2 g/dL Normal ScreenOnly [facility] Comment on above: Performed By: #### I CA, ABG, PT/AP, HEMOG, MG3, BMP3, PHOS3 ####[address] [place], [place] Oxygen (Bld) [Partial pressure] 224.9 mm[Hg] High 80.0-100.0 [facility] Comment on above: Performed By: #### I CA, ABG, PT/AP, HEMOG, MG3, BMP3, PHOS3 ####[address] Oxygen saturation in Blood 98.1 % Normal 95.0-100.0 [facility] Comment on above: Performed By: #### I CA, ABG, PT/AP, HEMOG, MG3, BMP3, PHOS3 ####[address] pCO2 38.5 mm[Hg] Normal 35.0-45.0 [facility] Comment on above: Performed By: #### I CA, ABG, PT/AP, HEMOG, MG3, BMP3, PHOS3 ####[address] pH 7.352 Normal 7.350-7.450 [facility] Comment on above: Performed By: #### I CA, ABG, PT/AP, HEMOG, MG3, BMP3, PHOS3 ####[address] Std Base Excess -4.3 mmol/L Low -3.0-3.0 [facility] Comment on above: Performed By: #### I CA, ABG, PT/AP, HEMOG, MG3, BMP3, PHOS3 ####[address] [address] [place], [place] FIO2 No data Normal [facility] [facility] Comment on above: Performed By: #### I CA, ABG, PT/AP, HEMOG, MG3, BMP3, PHOS3 ####[address] CO2 [Moles/Vol] 20.1 mmol/L Low 23.0-27.0 [facility] Comment on above: Performed By: #### P T/AP, ABG, FIBGN, CMP3, HEMOG, PHOS3, MG3 ####[address] HCO3 (Bld) [Moles/Vol] 19.1 mmol/L Low 21.0-25.0 [facility] Comment on above: Performed By: #### P T/AP, ABG, FIBGN, CMP3, HEMOG, PHOS3, MG3 ####[address] Hemoglobin (Bld) [Mass/Vol] 6.3 g/dL Normal ScreenOnly [facility] Comment on above: Performed By: #### P T/AP, ABG, FIBGN, CMP3, HEMOG, PHOS3, MG3 ####[address] Oxygen (Bld) [Partial pressure] 170.1 mm[Hg] High 80.0-100.0 [facility] Comment on above: Performed By: #### P T/AP, ABG, FIBGN, CMP3, HEMOG, PHOS3, MG3 ####[address] Oxygen saturation in Blood 98.0 % Normal 95.0-100.0 [facility] Comment on above: Performed By: #### P T/AP, ABG, FIBGN, CMP3, HEMOG, PHOS3, MG3 ####[address] pCO2 32.3 mm[Hg] Low 35.0-45.0 [facility] Comment on above: Performed By: #### P T/AP, ABG, FIBGN, CMP3, HEMOG, PHOS3, MG3 ####[address] pH 7.389 Normal 7.350-7.450 [facility] Comment on above: Performed By: #### P T/AP, ABG, FIBGN, CMP3, HEMOG, PHOS3, MG3 ####[facility] [address] [place], [place] Std Base Excess -5.4 mmol/L Low -3.0-3.0 [facility] Comment on above: Performed By: #### P T/AP, ABG, FIBGN, CMP3, HEMOG, PHOS3, MG3 ####[address] [place], [place] FIO2 No data Normal [facility] Comment on above: Performed By: #### P T/AP, ABG, FIBGN, CMP3, HEMOG, PHOS3, MG3 ####[address] [place], [place] FIO2 No data Normal [facility] Comment on above: Performed By: #### P HOS3, FIBGN, CMP3, PT/AP, HEMDF, MG3, ABG, MDIFF ####[address] CO2 [Moles/Vol] 21.9 mmol/L Low 23.0-27.0 [facility] Comment on above: Performed By: #### P HOS3, FIBGN, CMP3, PT/AP, HEMDF, MG3, ABG, MDIFF ####[address] HCO3 (Bld) [Moles/Vol] 20.7 mmol/L Low 21.0-25.0 [facility] Comment on above: Performed By: #### P HOS3, FIBGN, CMP3, PT/AP, HEMDF, MG3, ABG, MDIFF ####[address] Hemoglobin (Bld) [Mass/Vol] 9.8 g/dL Normal ScreenOnly [facility] Comment on above: Performed By: #### P HOS3, FIBGN, CMP3, PT/AP, HEMDF, MG3, ABG, MDIFF ####[address] Oxygen (Bld) [Partial pressure] 189.3 mm[Hg] High 80.0-100.0 [facility] Comment on above: Performed By: #### P HOS3, FIBGN, CMP3, PT/AP, HEMDF, MG3, ABG, MDIFF ####[address] Oxygen saturation in Blood 98.3 % Normal 95.0-100.0 [facility] Comment on above: Performed By: #### P HOS3, FIBGN, CMP3, PT/AP, HEMDF, MG3, ABG, MDIFF ####[address] pCO2 40.8 mm[Hg] Normal 35.0-45.0 [facility] Comment on above: Performed By: #### P HOS3, FIBGN, CMP3, PT/AP, HEMDF, MG3, ABG, MDIFF ####[address] pH 7.323 Low 7.350-7.450 [facility] Comment on above: Performed By: #### P HOS3, FIBGN, CMP3, PT/AP, HEMDF, MG3, ABG, MDIFF ####[address] Std Base Excess -5.0 mmol/L Low -3.0-3.0 [facility] Comment on above: Performed By: #### P HOS3, FIBGN, CMP3, PT/AP, HEMDF, MG3, ABG, MDIFF ####[address] CO2 [Moles/Vol] 21.8 mmol/L Low 23.0-27.0 [facility] Comment on above: Performed By: #### A BG, PHOS3, PT/AP, MG3, HEMOG, FIBGN, BMP3 ####[address] HCO3 (Bld) [Moles/Vol] 20.6 mmol/L Low 21.0-25.0 [facility] Comment on above: Performed By: #### A BG, PHOS3, PT/AP, MG3, HEMOG, FIBGN, BMP3 ####[address] Hemoglobin (Bld) [Mass/Vol] 10.6 g/dL Normal ScreenOnly [facility] Comment on above: Performed By: #### A BG, PHOS3, PT/AP, MG3, HEMOG, FIBGN, BMP3 ####[address] Oxygen (Bld) [Partial pressure] 361.6 mm[Hg] High 80.0-100.0 [facility] Comment on above: Performed By: #### A BG, PHOS3, PT/AP, MG3, HEMOG, FIBGN, BMP3 ####[address] Oxygen saturation in Blood 99.0 % Normal 95.0-100.0 [facility] Comment on above: Performed By: #### A BG, PHOS3, PT/AP, MG3, HEMOG, FIBGN, BMP3 ####[address] pCO2 40.2 mm[Hg] Normal 35.0-45.0 [facility] Comment on above: Performed By: #### A BG, PHOS3, PT/AP, MG3, HEMOG, FIBGN, BMP3 ####[address] pH 7.327 Low 7.350-7.450 [facility] Comment on above: Performed By: #### A BG, PHOS3, PT/AP, MG3, HEMOG, FIBGN, BMP3 ####[address] Std Base Excess -5.0 mmol/L Low -3.0-3.0 [facility] Comment on above: Performed By: #### A BG, PHOS3, PT/AP, MG3, HEMOG, FIBGN, BMP3 ####[address] [place] [address] FIO2 No data Normal [facility] Comment on above: Performed By: #### A BG, PHOS3, PT/AP, MG3, HEMOG, FIBGN, BMP3 ####[facility] [place] [address] Basic Metabolic Panelon 10-1 Anion gap [Moles/Vol] 6 mmol/L [place], [place] Calcium [Mass/Vol] 7.6 mg/dL Low 8.4 - 10. 4 mg/dL [place], [place] Chloride [Moles/Vol] 111 mmol/L High 98 - 10 7 mmol/L [place] CO2 [Moles/Vol] 21 mmol/L Low 22 - 30 mmol/L [place] Creatinine [Mass/Vol] 1.26 mg/dL High 0.52 - 1.25 mg/dL [place] EGFR IF NonAfrican Albanian 53.2 mL/min Abnormal >60 [place] Comment on above: KDIGO guidelines pro vide the following GFR categories: Stage GFR(ml/min/1.73 m2) Terms G1 >=90 Normal or high G2 60-89 Mildly decreased* G3a 45-59 Mildly to moderately decreased G3b 30-44 Moderately to severely decreased G4 15-29 Severely decreased G5 <15 Kidney failure *Relative to young adult level. In the absence of evidence of kidney damage, neither GFR category G1 nor G2 fulfill the criteria for CKD. The CKD-EPI equation is validated in individuals 18 years of age and older. Currently the best equation for estimating glomerular filtration rate (GFR) from serum creatinine in children is the Bedside Pelletier equation. It is less accurate in patients with extremes of muscle mass, restriction of dietary protein, ingestion of creatine, extra-renal metabolism of creatinine, or treatment with medications that affect renal tubular creatinine secretion. GFR/1.73 sq M predicted among blacks MDRD (S/P/Bld) [Vol rate/Area] 61.6 mL/min/{1.73_m2} >60 [place], [place] Glucose [Mass/Vol] 116 mg/dL High 70 - 100 mg/dL [place] Interpretation and review of laboratory results Abnormal [place] Potassium [Moles/Vol] 4.3 mmol/L 3.5 - 5.1 mmol/L [place] Sodium [Moles/Vol] 137 mmol/L 135 - 145 mmol/L [place] Urea nitrogen [Mass/Vol] 32 mg/dL High 7 - 20 mg/dL [place] Test Performed by [facility], [address] [place] [address] [place], [place] Anion Gap 11 Normal [facility] Comment on above: Performed By: #### I CA, ABG, PT/AP, HEMOG, MG3, BMP3, PHOS3 ####[facility] [place] [address] Calcium [Mass/Vol] 7.7 mg/dL Low 8.4-10.4 [facility] Comment on above: Performed By: #### I CA, ABG, PT/AP, HEMOG, MG3, BMP3, PHOS3 ####[address] [place] [address] CO2 [Moles/Vol] 21 mmol/L Low 22-30 [facility] Comment on above: Performed By: #### I CA, ABG, PT/AP, HEMOG, MG3, BMP3, PHOS3 ####[address] [place] [address] Glucose [Mass/Vol] 109 mg/dL High 70-100 [facility] Comment on above: Performed By: #### I CA, ABG, PT/AP, HEMOG, MG3, BMP3, PHOS3 ####[address] [place] [address] Urea nitrogen [Mass/Vol] 31 mg/dL High 7-20 [facility] Comment on above: Performed By: #### I CA, ABG, PT/AP, HEMOG, MG3, BMP3, PHOS3 ####[address] [place] [address] Creatinine [Mass/Vol] 1.33 mg/dL High 0.52-1.25 [facility] Comment on above: Performed By: #### I CA, ABG, PT/AP, HEMOG, MG3, BMP3, PHOS3 ####[facility] [id number] [place], [place] GFR/1.73 sq M.predicted among blacks MDRD (S/P/Bld) [Vol rate/Area] 57.7 mL/min/{1.73_m2} Abnormal >60 [facility] Comment on above: Performed By: #### I CA, ABG, PT/AP, HEMOG, MG3, BMP3, PHOS3 ####[facility] [address] [place], [place] GFR/1.73 sq M.predicted among non-blacks MDRD (S/P/Bld) [Vol rate/Area] 49.8 mL/min/{1.73_m2} Abnormal >60 [facility] Comment on above: Result Comment: KDIG O guidelines provide the following GFR categories:Stage GFR(ml/min/1.73 m2) TermsG1 >=90 Normal or highG2 60-89 Mildly decreased*G3a 45-59 Mildly to moderately [id number] 30-44 Moderately to severely decreasedG4 15-29 Severely decreasedG5 <15 Kidney failure*Relative to young adult level.In the absence of evidence of kidney damage, neither GFRcategory G1 nor G2 fulfill the criteria for CKD.The CKD-EPI equation is validated in individuals 18 yearsof age and older. Currently the best equation forestimating glomerular filtration rate (GFR) from serumcreatinine in children is the Bedside Pelletier equation.It is less accurate in patients with extremes of musclemass, restriction of dietary protein, ingestion of creatine,extra-renal metabolism of creatinine, or treatment withmedications that affect renal tubular creatinine secretion. Performed By: #### I CA, ABG, PT/AP, HEMOG, MG3, BMP3, PHOS3 ####[facility] [address] [place], [place] Potassium [Moles/Vol] 4.3 mmol/L Normal 3.5-5.1 [facility] Comment on above: Performed By: #### I CA, ABG, PT/AP, HEMOG, MG3, BMP3, PHOS3 ####[facility] [place] [place], [place] Sodium [Moles/Vol] 140 mmol/L Normal 135-145 [facility] Comment on above: Performed By: #### I CA, ABG, PT/AP, HEMOG, MG3, BMP3, PHOS3 ####[facility] [place] [address] Chloride [Moles/Vol] 108 mmol/L High 98-107 [facility] Comment on above: Performed By: #### I CA, ABG, PT/AP, HEMOG, MG3, BMP3, PHOS3 ####[facility] [place], [place] Anion gap [Moles/Vol] 11 mmol/L [place], [place] Calcium [Mass/Vol] 7.7 mg/dL Low 8.4 - 10. 4 mg/dL [place] Chloride [Moles/Vol] 108 mmol/L High 98 - 10 7 mmol/L [place] CO2 [Moles/Vol] 21 mmol/L Low 22 - 30 mmol/L [place] Creatinine [Mass/Vol] 1.33 mg/dL High 0.52 - 1.25 mg/dL [place] EGFR IF NonAfrican [place]ian 49.8 mL/min Abnormal >60 [place] Comment on above: KDIGO guidelines pro vide the following GFR categories: Stage GFR(ml/min/1.73 m2) Terms G1 >=90 Normal or high G2 60-89 Mildly decreased* G3a 45-59 Mildly to moderately decreased G3b 30-44 Moderately to severely decreased G4 15-29 Severely decreased G5 <15 Kidney failure *Relative to young adult level. In the absence of evidence of kidney damage, neither GFR category G1 nor G2 fulfill the criteria for CKD. The CKD-EPI equation is validated in individuals 18 years of age and older. Currently the best equation for estimating glomerular filtration rate (GFR) from serum creatinine in children is the Bedside Pelletier equation. It is less accurate in patients with extremes of muscle mass, restriction of dietary protein, ingestion of creatine, extra-renal metabolism of creatinine, or treatment with medications that affect renal tubular creatinine secretion. GFR/1.73 sq M predicted among blacks MDRD (S/P/Bld) [Vol rate/Area] 57.7 mL/min/{1.73_m2} Abnormal >60 [place], [place] Glucose [Mass/Vol] 109 mg/dL High 70 - 100 mg/dL [place] Potassium [Moles/Vol] 4.3 mmol/L 3.5 - 5.1 mmol/L [place] Sodium [Moles/Vol] 140 mmol/L 135 - 145 mmol/L [place] Urea nitrogen [Mass/Vol] 31 mg/dL High 7 - 20 mg/dL [place] Calcium [Mass/Vol] 9.8 mg/dL Normal 8.4-10.4 [facility] Comment on above: Performed By: #### A BG, PHOS3, PT/AP, MG3, HEMOG, FIBGN, BMP3 ####[address] [place], [place] Glucose [Mass/Vol] 89 mg/dL Normal 70-100 [facility] Comment on above: Performed By: #### A BG, PHOS3, PT/AP, MG3, HEMOG, FIBGN, BMP3 ####[address] [place], [place] Anion Gap 8 Normal [facility] Comment on above: Performed By: #### A BG, PHOS3, PT/AP, MG3, HEMOG, FIBGN, BMP3 ####[address] [place], [place] CO2 [Moles/Vol] 20 mmol/L Low 22-30 [facility] Comment on above: Performed By: #### A BG, PHOS3, PT/AP, MG3, HEMOG, FIBGN, BMP3 ####[address] [place], [place] Creatinine [Mass/Vol] 1.22 mg/dL Normal 0.52-1.25 [facility] Comment on above: Performed By: #### A BG, PHOS3, PT/AP, MG3, HEMOG, FIBGN, BMP3 ####[employer] [place], [place] GFR/1.73 sq M.predicted among blacks MDRD (S/P/Bld) [Vol rate/Area] 64.1 mL/min/{1.73_m2} Normal >60 [facility] Comment on above: Performed By: #### A BG, PHOS3, PT/AP, MG3, HEMOG, FIBGN, BMP3 ####[employer] [address] [place], [place] GFR/1.73 sq M.predicted among non-blacks MDRD (S/P/Bld) [Vol rate/Area] 55.3 mL/min/{1.73_m2} Abnormal >60 [facility] Comment on above: Result Comment: KDIG O guidelines provide the following GFR categories:Stage GFR(ml/min/1.73 m2) TermsG1 >=90 Normal or highG2 60-89 Mildly decreased*G3a 45-59 Mildly to moderately [id number] 30-44 Moderately to severely decreasedG4 15-29 Severely decreasedG5 <15 Kidney failure*Relative to young adult level.In the absence of evidence of kidney damage, neither GFRcategory G1 nor G2 fulfill the criteria for CKD.The CKD-EPI equation is validated in individuals 18 yearsof age and older. Currently the best equation forestimating glomerular filtration rate (GFR) from serumcreatinine in children is the Bedside Pelletier equation.It is less accurate in patients with extremes of musclemass, restriction of dietary protein, ingestion of creatine,extra-renal metabolism of creatinine, or treatment withmedications that affect renal tubular creatinine secretion. Performed By: #### A BG, PHOS3, PT/AP, MG3, HEMOG, FIBGN, BMP3 ####[employer], [place] Urea nitrogen [Mass/Vol] 33 mg/dL High 7-20 [facility] Comment on above: Performed By: #### A BG, PHOS3, PT/AP, MG3, HEMOG, FIBGN, BMP3 ####[employer] [address] [place], [place] Chloride [Moles/Vol] 111 mmol/L High 98-107 [facility] Comment on above: Performed By: #### A BG, PHOS3, PT/AP, MG3, HEMOG, FIBGN, BMP3 ####[facility] [place], [place] Potassium [Moles/Vol] 3.9 mmol/L Normal 3.5-5.1 [facility] Comment on above: Performed By: #### A BG, PHOS3, PT/AP, MG3, HEMOG, FIBGN, BMP3 ####[facility] [place], [place] Sodium [Moles/Vol] 139 mmol/L Normal 135-145 [facility] Comment on above: Performed By: #### A BG, PHOS3, PT/AP, MG3, HEMOG, FIBGN, BMP3 ####[address] [place], [place] Anion gap [Moles/Vol] 8 mmol/L [place], [place] Calcium [Mass/Vol] 9.8 mg/dL 8.4 - 10. 4 mg/dL [place] Chloride [Moles/Vol] 111 mmol/L High 98 - 10 7 mmol/L [place] CO2 [Moles/Vol] 20 mmol/L Low 22 - 30 mmol/L [place] Creatinine [Mass/Vol] 1.22 mg/dL 0.52 - 1.25 mg/dL [place] EGFR IF NonAfrican [place]ian 55.3 mL/min Abnormal >60 [place] Comment on above: KDIGO guidelines pro vide the following GFR categories: Stage GFR(ml/min/1.73 m2) Terms G1 >=90 Normal or high G2 60-89 Mildly decreased* G3a 45-59 Mildly to moderately decreased G3b 30-44 Moderately to severely decreased G4 15-29 Severely decreased G5 <15 Kidney failure *Relative to young adult level. In the absence of evidence of kidney damage, neither GFR category G1 nor G2 fulfill the criteria for CKD. The CKD-EPI equation is validated in individuals 18 years of age and older. Currently the best equation for estimating glomerular filtration rate (GFR) from serum creatinine in children is the Bedside Pleletier equation. It is less accurate in patients with extremes of muscle mass, restriction of dietary protein, ingestion of creatine, extra-renal metabolism of creatinine, or treatment with medications that affect renal tubular creatinine secretion. GFR/1.73 sq M predicted among blacks MDRD (S/P/Bld) [Vol rate/Area] 64.1 mL/min/{1.73_m2} >60 [place], [place] Glucose [Mass/Vol] 89 mg/dL 70 - 100 mg/dL [place] Potassium [Moles/Vol] 3.9 mmol/L 3.5 - 5.1 mmol/L [place] Sodium [Moles/Vol] 139 mmol/L 135 - 145 mmol/L [place] Urea nitrogen [Mass/Vol] 33 mg/dL High 7 - 20 mg/dL [place] Blood Gas, Arterialon 2019 Base Excess, Arterial -3.4 mmol/L Low -3 - 3 mmol/L [place] HCO3, Arterial 20.8 mmol/L Low 21 - 25 mmol/L [place] Hemoglobin (Bld) [Mass/Vol] 7.8 g/dL ScreenOnly [place] Interpretation and review of laboratory results Abnormal [place] Oxygen saturation in Blood 98.5 % 95 - 100 % [place] pCO2, Arterial 33.4 mm[Hg] Low 35 - 45 mm[Hg] [place] pH, Arterial 7.412 [place] pO2, Arterial 148.9 mm[Hg] High 80 - 100 mm[Hg] [place], [place] Comment on above: This sample was rece ived in the lab on ice and/or analysis was delayed beyond the recommended 30 minutes. Low temperatures cause artefactual increases in pO2. Delay in analysis at room temperature can cause artefactual decreases in pO2, and sO2, and pH with increase in pCO2. It is recommended that results be correlated clinically and the sample be recollected and analyzed promptly if clinically indicated. Sodium [Moles/Vol] 0 mmol/L [place] TCO2, Arterial 21.8 mmol/L Low 23 - 27 mmol/L [facility] [place], [place] Test Performed by [facility], [address] [place] [id number] [facility] [place], [place] Base Excess, Arterial -4.3 mmol/L Low -3 - 3 mmol/L [facility] [place] HCO3, Arterial 20.9 mmol/L Low 21 - 25 mmol/L [facility], [place] Hemoglobin (Bld) [Mass/Vol] 8.2 g/dL ScreenOnly [facility], [place] Oxygen saturation in Blood 98.1 % 95 - 100 % [facility] [place] pCO2, Arterial 38.5 mm[Hg] 35 - 45 mm[Hg] [facility], [place] pH, Arterial 7.352 [facility], [place] pO2, Arterial 224.9 mm[Hg] High 80 - 100 mm[Hg] [facility], [place] Sodium [Moles/Vol] No data [facility] TCO2, Arterial 22.1 mmol/L Low 23 - 27 mmol/L [facility] [place] Base Excess, Arterial -5.4 mmol/L Low -3 - 3 mmol/L [facility] [place] HCO3, Arterial 19.1 mmol/L Low 21 - 25 mmol/L [facility] [place] Hemoglobin (Bld) [Mass/Vol] 6.3 g/dL [place] Interpretation and review of laboratory results Abnormal [facility], [place] Oxygen saturation in Blood 98.0 % 95 - 100 % [facility] pCO2, Arterial 32.3 mm[Hg] Low 35 - 45 mm[Hg] [facility] [place], [place] pH, Arterial 7.389 [facility], [place] pO2, Arterial 170.1 mm[Hg] High 80 - 100 mm[Hg] [facility] Sodium [Moles/Vol] No data [facility], [place] TCO2, Arterial 20.1 mmol/L Low 23 - 27 mmol/L [facility] [place] Test Performed by [facility], [facility] [place] [address] [facility], [place] Base Excess, Arterial -5.0 mmol/L Low -3 - 3 mmol/L [facility] HCO3, Arterial 20.7 mmol/L Low 21 - 25 mmol/L [place] Hemoglobin (Bld) [Mass/Vol] 9.8 g/dL ScreenOnly [place] Interpretation and review of laboratory results Abnormal [place] Oxygen saturation in Blood 98.3 % 95 - 100 % [place] pCO2, Arterial 40.8 mm[Hg] 35 - 45 mm[Hg] [place] pH, Arterial 7.323 Low [place] pO2, Arterial 189.3 mm[Hg] High 80 - 100 mm[Hg] [place] Sodium [Moles/Vol] No data [place] TCO2, Arterial 21.9 mmol/L Low 23 - 27 mmol/L [place] Test Performed by [address] [address] [place] Base Excess, Arterial -5.0 mmol/L Low -3 - 3 mmol/L [place] HCO3, Arterial 20.6 mmol/L Low 21 - 25 mmol/L [place] Hemoglobin (Bld) [Mass/Vol] 10.6 g/dL ScreenOnly [place] Interpretation and review of laboratory results Abnormal [place] Oxygen saturation in Blood 99.0 % 95 - 100 % [place] pCO2, Arterial 40.2 mm[Hg] 35 - 45 mm[Hg] [place] pH, Arterial 7.327 Low [place] pO2, Arterial 361.6 mm[Hg] High 80 - 100 mm[Hg] [place] Sodium [Moles/Vol] No data [place] TCO2, Arterial 21.8 mmol/L Low 23 - 27 mmol/L [place] Test Performed by [address] [address] [place] CBCon 03-26-2020 Erythrocyte distribution width (RBC) [Ratio] 13.8 % 11.5 - 14.5 % [place] Hematocrit (Bld) [Volume fraction] 22.8 % Low 40 - 52 % [place] Hemoglobin (Bld) [Mass/Vol] 7.5 g/dL Low 13 - 18 g/dL [place] Interpretation and review of laboratory results Abnormal [place] MCH (RBC) [Entitic mass] 29.0 pg 26 - 34 pg [place] MCHC (RBC) [Mass/Vol] 32.8 % 32 - 36 % [place] MCV (RBC) [Entitic vol] 88.4 fL 80 - 98 fL [place] Platelet mean volume (Bld) [Entitic vol] 8.2 fL 7.4 - 10.4 fL [place] Platelets (Bld) [#/Vol] 124 10*3/uL Low 140 - 440 10*3/uL [place] RBC (Bld) [#/Vol] 2.57 10*6/uL Low 4.4 - 5.9 10*6/uL [place] WBC (Bld) [#/Vol] 11.1 10*3/uL High 3.6 - 10.7 10*3/uL [place] Test Performed by [facility], [address] [place] [id number] [place] Erythrocyte distribution width (RBC) [Ratio] 13.8 % 11.5 - 14.5 % [place] Hematocrit (Bld) [Volume fraction] 16.9 % Low 40 - 52 % [place] Hemoglobin (Bld) [Mass/Vol] 5.7 g/dL Critically low 13 - 18 g/dL [place] Interpretation and review of laboratory results Abnormal [place] MCH (RBC) [Entitic mass] 29.8 pg 26 - 34 pg [place] MCHC (RBC) [Mass/Vol] 33.5 % 32 - 36 % [place] MCV (RBC) [Entitic vol] 89.0 fL 80 - 98 fL [place] Platelet mean volume (Bld) [Entitic vol] 8.2 fL 7.4 - 10.4 fL [place] Platelets (Bld) [#/Vol] 184 10*3/uL 140 - 440 10*3/uL [place] RBC (Bld) [#/Vol] 1.90 10*6/uL Low 4.4 - 5.9 10*6/uL [place] WBC (Bld) [#/Vol] 16.7 10*3/uL High 3.6 - 10.7 10*3/uL [place] Test Performed by [address] [address] [place] Erythrocyte distribution width (RBC) [Ratio] 13.9 % 11.5 - 14.5 % [place] Hematocrit (Bld) [Volume fraction] 31.0 % Low 40 - 52 % [place] Hemoglobin (Bld) [Mass/Vol] 10.2 g/dL Low 13 - 18 g/dL [place] Comment on above: repeated Interpretation and review of laboratory results Abnormal [place] MCH (RBC) [Entitic mass] 29.3 pg 26 - 34 pg [place] MCHC (RBC) [Mass/Vol] 32.8 % 32 - 36 % [place] MCV (RBC) [Entitic vol] 89.3 fL 80 - 98 fL [place] Platelet mean volume (Bld) [Entitic vol] 9.1 fL 7.4 - 10.4 fL [place] Platelets (Bld) [#/Vol] 125 10*3/uL Low 140 - 440 10*3/uL [place] RBC (Bld) [#/Vol] 3.48 10*6/uL Low 4.4 - 5.9 10*6/uL [place] WBC (Bld) [#/Vol] 19.0 10*3/uL High 3.6 - 10.7 10*3/uL [place] CBC Auto Differentialon 10-06 16-2019 Absolute Baso # 0.0 10*3/uL 0 - 0.2 10*3/uL [place] Absolute Neut # 4.8 10*3/uL 1.8 - 7 10*3/uL [place] Basophils/100 WBC (Bld) 0.2 % 0 - 2 % [place] Eosinophils (Bld) [#/Vol] 0.0 10*3/uL 0 - 0.5 10*3/uL [place] Eosinophils/100 WBC (Bld) 0.1 % Low 1 - 6 % [place] Erythrocyte distribution width (RBC) [Ratio] 14.1 % 11.5 - 14.5 % [place] Granulocytes/100 WBC (Bld) 70.1 % 40 - 80 % [place] Hematocrit (Bld) [Volume fraction] 21.9 % Low 40 - 52 % [place] Hemoglobin (Bld) [Mass/Vol] 7.5 g/dL Low 13 - 18 g/dL [place], [place] Interpretation and review of laboratory results Abnormal [place] Lymphocytes (Bld) [#/Vol] 1.2 10*3/uL 1 - 4.3 10*3/uL [place] Lymphocytes/100 WBC (Bld) 18.2 % Low 20 - 40 % [place] MCH (RBC) [Entitic mass] 29.9 pg 26 - 34 pg [place] MCHC (RBC) [Mass/Vol] 34.1 % 32 - 36 % [place] MCV (RBC) [Entitic vol] 87.8 fL 80 - 98 fL [place] Monocytes (Bld) [#/Vol] 0.8 10*3/uL 0 - 0.8 10*3/uL [place] Monocytes/100 WBC (Bld) 11.4 % High 2 - 10 % [place] Platelet mean volume (Bld) [Entitic vol] 8.3 fL 7.4 - 10.4 fL [place] Platelets (Bld) [#/Vol] 91 10*3/uL Low 140 - 440 10*3/uL [place] RBC (Bld) [#/Vol] 2.49 10*6/uL Low 4.4 - 5.9 10*6/uL [place] WBC (Bld) [#/Vol] 6.8 10*3/uL 3.6 - 10.7 10*3/uL [place] Test Performed by [facility], [address] [place] [id number] [place], [place] Erythrocyte distribution width (RBC) [Ratio] 13.7 % 11.5 - 14.5 % [place] Hematocrit (Bld) [Volume fraction] 27.1 % Low 40 - 52 % [place] Hemoglobin (Bld) [Mass/Vol] 9.0 g/dL Low 13 - 18 g/dL [place] Interpretation and review of laboratory results Abnormal [place] MCH (RBC) [Entitic mass] 29.3 pg 26 - 34 pg [place] MCHC (RBC) [Mass/Vol] 33.0 % 32 - 36 % [place] MCV (RBC) [Entitic vol] 88.7 fL 80 - 98 fL [place] Platelet mean volume (Bld) [Entitic vol] 9.3 fL 7.4 - 10.4 fL [place] Platelets (Bld) [#/Vol] 150 10*3/uL 140 - 440 10*3/uL [place] RBC (Bld) [#/Vol] 3.06 10*6/uL Low 4.4 - 5.9 10*6/uL [place] WBC (Bld) [#/Vol] 20.0 10*3/uL High 3.6 - 10.7 10*3/uL [place] Test Performed by [facility], [address] [place] [id number] [place], [place] CR Chest Portableon 03-26-20 20 CR Chest Portable Normal [facility] CR Chest Portable Normal [facility] Calcium, Ionizedon 0 Ionized Ca 4.10 mg/dL Low 4.3 - 5.2 mg/dL [place] pH (Bld) 7.43 [pH] [place] Ionized Ca 4.00 mg/dL Low 4.3 - 5.2 mg/dL [place] pH (Bld) 7.34 [pH] [place] Ionized Ca 4.40 mg/dL 4.3 - 5.2 mg/dL [place] pH (Bld) 7.37 [pH] [place] Test Performed by [id number] [place] [address] Interpretation and review of laboratory results Abnormal [place] Ionized Ca 5.70 mg/dL High 4.3 - 5.2 mg/dL [place] pH (Bld) 7.37 [pH] [place] Test Performed by [facility], [address] [place] [id number] [place] [address] Calcium,Ionizedon 03-26-2020 pH, Ionized Calcium 7.43 Normal 7.31-7.46 [facility] Comment on above: Performed By: #### F IBGN, BMP3, ICA, ABG, HEMDF, PT/AP ####[address] [place] [address] Ionized Ca,Measured 4.10 mg/dL Low 4.30-5.20 [facility] Comment on above: Performed By: #### F IBGN, BMP3, ICA, ABG, HEMDF, PT/AP ####[address] [place] [address] Ionized Ca,Measured 4.00 mg/dL Low 4.30-5.20 [facility] Comment on above: Performed By: #### I CA, ABG, PT/AP, HEMOG, MG3, BMP3, PHOS3 ####[address] [place], [place] pH, Ionized Calcium 7.34 Normal 7.31-7.46 [facility] Comment on above: Performed By: #### I CA, ABG, PT/AP, HEMOG, MG3, BMP3, PHOS3 ####[address] [place], [place] Ionized Ca,Measured 4.40 mg/dL Normal 4.30-5.20 [facility] Comment on above: Performed By: #### I CA ####[address] [place], [place] pH, Ionized Calcium 7.37 Normal 7.31-7.46 [facility] Comment on above: Performed By: #### I CA ####[address] Ionized Ca,Measured 5.70 mg/dL High 4.30-5.20 [facility] Comment on above: Performed By: #### I CA ####[address] pH, Ionized Calcium 7.37 Normal 7.31-7.46 [facility] Comment on above: Performed By: #### I CA ####[address] Comp Metabolic Panelon 03-26 Calcium [Mass/Vol] 8.4 mg/dL Normal 8.4-10.4 [facility] Comment on above: Performed By: #### P T/AP, ABG, FIBGN, CMP3, HEMOG, PHOS3, MG3 ####[address] [place], [place] ALP [Catalytic activity/Vol] 30 U/L Low 38-126 [facility] Comment on above: Performed By: #### P T/AP, ABG, FIBGN, CMP3, HEMOG, PHOS3, MG3 ####[address] [place], [place] ALT [Catalytic activity/Vol] 10 U/L Normal 0-49 [facility] Comment on above: Result Comment: The ALT test is performed by an updated assay method.Please note that the reference intervals have beenchanged and are now sex specific. Performed By: #### P T/AP, ABG, FIBGN, CMP3, HEMOG, PHOS3, MG3 ####[address] Anion Gap 13 Normal [facility] Comment on above: Performed By: #### P T/AP, ABG, FIBGN, CMP3, HEMOG, PHOS3, MG3 ####[address] [place], [place] AST [Catalytic activity/Vol] 25 U/L Normal 15-46 [facility] Comment on above: Performed By: #### P T/AP, ABG, FIBGN, CMP3, HEMOG, PHOS3, MG3 ####[address] [place], [place] Bilirubin [Mass/Vol] 1.3 mg/dL Normal 0.2-1.3 [facility] Comment on above: Performed By: #### P T/AP, ABG, FIBGN, CMP3, HEMOG, PHOS3, MG3 ####[address] [place], [place] CO2 [Moles/Vol] 18 mmol/L Low 22-30 [facility] Comment on above: Performed By: #### P T/AP, ABG, FIBGN, CMP3, HEMOG, PHOS3, MG3 ####[address] [place], [place] Glucose [Mass/Vol] 105 mg/dL High 70-100 [facility] Comment on above: Performed By: #### P T/AP, ABG, FIBGN, CMP3, HEMOG, PHOS3, MG3 ####[address] [place], [place] Protein [Mass/Vol] 5.6 g/dL Low 6.3-8.2 [facility] Comment on above: Performed By: #### P T/AP, ABG, FIBGN, CMP3, HEMOG, PHOS3, MG3 ####[address] [place], [place] Urea nitrogen [Mass/Vol] 31 mg/dL High 7-20 [facility] Comment on above: Performed By: #### P T/AP, ABG, FIBGN, CMP3, HEMOG, PHOS3, MG3 ####[address] [place], [place] Creatinine [Mass/Vol] 1.39 mg/dL High 0.52-1.25 [facility] Comment on above: Performed By: #### P T/AP, ABG, FIBGN, CMP3, HEMOG, PHOS3, MG3 ####[address] [place], [place] GFR/1.73 sq M.predicted among blacks MDRD (S/P/Bld) [Vol rate/Area] 54.7 mL/min/{1.73_m2} Abnormal >60 [facility] Comment on above: Performed By: #### P T/AP, ABG, FIBGN, CMP3, HEMOG, PHOS3, MG3 ####[facility] [id number] [place], [place] GFR/1.73 sq M.predicted among non-blacks MDRD (S/P/Bld) [Vol rate/Area] 47.2 mL/min/{1.73_m2} Abnormal >60 [facility] Comment on above: Result Comment: KDIG O guidelines provide the following GFR categories:Stage GFR(ml/min/1.73 m2) TermsG1 >=90 Normal or highG2 60-89 Mildly decreased*G3a 45-59 Mildly to moderately [id number] 30-44 Moderately to severely decreasedG4 15-29 Severely decreasedG5 <15 Kidney failure*Relative to young adult level.In the absence of evidence of kidney damage, neither GFRcategory G1 nor G2 fulfill the criteria for CKD.The CKD-EPI equation is validated in individuals 18 yearsof age and older. Currently the best equation forestimating glomerular filtration rate (GFR) from serumcreatinine in children is the Bedside Pelletier equation.It is less accurate in patients with extremes of musclemass, restriction of dietary protein, ingestion of creatine,extra-renal metabolism of creatinine, or treatment withmedications that affect renal tubular creatinine secretion. Performed By: #### P T/AP, ABG, FIBGN, CMP3, HEMOG, PHOS3, MG3 ####[facility] [id number] [place], [place] Potassium [Moles/Vol] 4.2 mmol/L Normal 3.5-5.1 [facility] Comment on above: Performed By: #### P T/AP, ABG, FIBGN, CMP3, HEMOG, PHOS3, MG3 ####[address] [place], [place] Albumin [Mass/Vol] 3.8 g/dL Normal 3.5-5.0 [facility] Comment on above: Performed By: #### P T/AP, ABG, FIBGN, CMP3, HEMOG, PHOS3, MG3 ####[address] [place], [place] Chloride [Moles/Vol] 109 mmol/L High 98-107 [facility] Comment on above: Performed By: #### P T/AP, ABG, FIBGN, CMP3, HEMOG, PHOS3, MG3 ####[address] Sodium [Moles/Vol] 140 mmol/L Normal 135-145 [facility] Comment on above: Performed By: #### P T/AP, ABG, FIBGN, CMP3, HEMOG, PHOS3, MG3 ####[address] ALT [Catalytic activity/Vol] 11 U/L Normal 0-49 [facility] Comment on above: Result Comment: The ALT test is performed by an updated assay method.Please note that the reference intervals have beenchanged and are now sex specific. Performed By: #### P HOS3, FIBGN, CMP3, PT/AP, HEMDF, MG3, ABG, MDIFF ####[address] [place], [place] Calcium [Mass/Vol] 9.0 mg/dL Normal 8.4-10.4 [facility] Comment on above: Performed By: #### P HOS3, FIBGN, CMP3, PT/AP, HEMDF, MG3, ABG, MDIFF ####[address] [place], [place] Glucose [Mass/Vol] 88 mg/dL Normal 70-100 [facility] Comment on above: Performed By: #### P HOS3, FIBGN, CMP3, PT/AP, HEMDF, MG3, ABG, MDIFF ####[address] [place], [place] ALP [Catalytic activity/Vol] 35 U/L Low 38-126 [facility] Comment on above: Performed By: #### P HOS3, FIBGN, CMP3, PT/AP, HEMDF, MG3, ABG, MDIFF ####[address] [place], [place] Anion Gap 12 Normal [facility] Comment on above: Performed By: #### P HOS3, FIBGN, CMP3, PT/AP, HEMDF, MG3, ABG, MDIFF ####[address] AST [Catalytic activity/Vol] 25 U/L Normal 15-46 [facility] Comment on above: Performed By: #### P HOS3, FIBGN, CMP3, PT/AP, HEMDF, MG3, ABG, MDIFF ####[address] [place], [place] Bilirubin [Mass/Vol] 1.1 mg/dL Normal 0.2-1.3 [facility] Comment on above: Performed By: #### P HOS3, FIBGN, CMP3, PT/AP, HEMDF, MG3, ABG, MDIFF ####[address] [place], [place] CO2 [Moles/Vol] 17 mmol/L Low 22-30 [facility] Comment on above: Performed By: #### P HOS3, FIBGN, CMP3, PT/AP, HEMDF, MG3, ABG, MDIFF ####[address] [place], [place] Creatinine [Mass/Vol] 1.24 mg/dL Normal 0.52-1.25 [facility] Comment on above: Performed By: #### P HOS3, FIBGN, CMP3, PT/AP, HEMDF, MG3, ABG, MDIFF ####[facility] [id number] [place], [place] GFR/1.73 sq M.predicted among blacks MDRD (S/P/Bld) [Vol rate/Area] 62.8 mL/min/{1.73_m2} Normal >60 [facility] Comment on above: Performed By: #### P HOS3, FIBGN, CMP3, PT/AP, HEMDF, MG3, ABG, MDIFF ####[facility] [id number] [place], [place] GFR/1.73 sq M.predicted among non-blacks MDRD (S/P/Bld) [Vol rate/Area] 54.2 mL/min/{1.73_m2} Abnormal >60 [facility] Comment on above: Result Comment: KDIG O guidelines provide the following GFR categories:Stage GFR(ml/min/1.73 m2) TermsG1 >=90 Normal or highG2 60-89 Mildly decreased*G3a 45-59 Mildly to moderately [id number] 30-44 Moderately to severely decreasedG4 15-29 Severely decreasedG5 <15 Kidney failure*Relative to young adult level.In the absence of evidence of kidney damage, neither GFRcategory G1 nor G2 fulfill the criteria for CKD.The CKD-EPI equation is validated in individuals 18 yearsof age and older. Currently the best equation forestimating glomerular filtration rate (GFR) from serumcreatinine in children is the Bedside Pelletier equation.It is less accurate in patients with extremes of musclemass, restriction of dietary protein, ingestion of creatine,extra-renal metabolism of creatinine, or treatment withmedications that affect renal tubular creatinine secretion. Performed By: #### P HOS3, FIBGN, CMP3, PT/AP, HEMDF, MG3, ABG, MDIFF ####[facility] [id number] [place], [place] Protein [Mass/Vol] 5.7 g/dL Low 6.3-8.2 [facility] Comment on above: Performed By: #### P HOS3, FIBGN, CMP3, PT/AP, HEMDF, MG3, ABG, MDIFF ####[address] [place], [place] Urea nitrogen [Mass/Vol] 31 mg/dL High 7-20 [facility] Comment on above: Performed By: #### P HOS3, FIBGN, CMP3, PT/AP, HEMDF, MG3, ABG, MDIFF ####[address] [place], [place] Potassium [Moles/Vol] 4.0 mmol/L Normal 3.5-5.1 [facility] Comment on above: Performed By: #### P HOS3, FIBGN, CMP3, PT/AP, HEMDF, MG3, ABG, MDIFF ####[address] [place], [place] Sodium [Moles/Vol] 141 mmol/L Normal 135-145 [facility] Comment on above: Performed By: #### P HOS3, FIBGN, CMP3, PT/AP, HEMDF, MG3, ABG, MDIFF ####[address] [place], [place] Albumin [Mass/Vol] 3.8 g/dL Normal 3.5-5.0 [facility] Comment on above: Performed By: #### P HOS3, FIBGN, CMP3, PT/AP, HEMDF, MG3, ABG, MDIFF ####[address] [place], [place] Chloride [Moles/Vol] 111 mmol/L High 98-107 [facility] Comment on above: Performed By: #### P HOS3, FIBGN, CMP3, PT/AP, HEMDF, MG3, ABG, MDIFF ####[address] [place], [place] Comprehensive Metabolic Pane rafiq 03-26-2020 Albumin [Mass/Vol] 3.8 g/dL 3.5 - 5 g/dL [facility], [place] ALP [Catalytic activity/Vol] 30 U/L Low 38 - 126 U/L [place] ALT [Catalytic activity/Vol] 10 U/L 0 - 49 U/L [place] Comment on above: The ALT test is perf ormed by an updated assay method. Please note that the reference intervals have been changed and are now sex specific. Anion gap [Moles/Vol] 13 mmol/L [place], [place] AST [Catalytic activity/Vol] 25 U/L 15 - 46 U/L [place] Bilirubin Ql (U) 1.3 mg/dL 0.2 - 1.3 mg/dL [place] Calcium [Mass/Vol] 8.4 mg/dL 8.4 - 10. 4 mg/dL [place] Chloride [Moles/Vol] 109 mmol/L High 98 - 10 7 mmol/L [place] CO2 [Moles/Vol] 18 mmol/L Low 22 - 30 mmol/L [place] Creatinine [Mass/Vol] 1.39 mg/dL High 0.52 - 1.25 mg/dL [place] EGFR IF NonAfrican [place]ian 47.2 mL/min Abnormal >60 [place] Comment on above: KDIGO guidelines pro vide the following GFR categories: Stage GFR(ml/min/1.73 m2) Terms G1 >=90 Normal or high G2 60-89 Mildly decreased* G3a 45-59 Mildly to moderately decreased G3b 30-44 Moderately to severely decreased G4 15-29 Severely decreased G5 <15 Kidney failure *Relative to young adult level. In the absence of evidence of kidney damage, neither GFR category G1 nor G2 fulfill the criteria for CKD. The CKD-EPI equation is validated in individuals 18 years of age and older. Currently the best equation for estimating glomerular filtration rate (GFR) from serum creatinine in children is the Bedside Pelletier equation. It is less accurate in patients with extremes of muscle mass, restriction of dietary protein, ingestion of creatine, extra-renal metabolism of creatinine, or treatment with medications that affect renal tubular creatinine secretion. GFR/1.73 sq M predicted among blacks MDRD (S/P/Bld) [Vol rate/Area] 54.7 mL/min/{1.73_m2} Abnormal >60 [place] Glucose [Mass/Vol] 105 mg/dL High 70 - 100 mg/dL [place] Potassium [Moles/Vol] 4.2 mmol/L 3.5 - 5.1 mmol/L [place] Protein [Mass/Vol] 5.6 g/dL Low 6.3 - 8.2 g/dL [place] Sodium [Moles/Vol] 140 mmol/L 135 - 145 mmol/L [place] Urea nitrogen [Mass/Vol] 31 mg/dL High 7 - 20 mg/dL [place] Albumin [Mass/Vol] 3.8 g/dL 3.5 - 5 g/dL [place] ALP [Catalytic activity/Vol] 35 U/L Low 38 - 126 U/L [place] ALT [Catalytic activity/Vol] 11 U/L 0 - 49 U/L [place] Comment on above: The ALT test is perf ormed by an updated assay method. Please note that the reference intervals have been changed and are now sex specific. Anion gap [Moles/Vol] 12 mmol/L [place] AST [Catalytic activity/Vol] 25 U/L 15 - 46 U/L [place] Bilirubin Ql (U) 1.1 mg/dL 0.2 - 1.3 mg/dL [place] Calcium [Mass/Vol] 9.0 mg/dL 8.4 - 10. 4 mg/dL [place] Chloride [Moles/Vol] 111 mmol/L High 98 - 10 7 mmol/L [place] CO2 [Moles/Vol] 17 mmol/L Low 22 - 30 mmol/L [place] Creatinine [Mass/Vol] 1.24 mg/dL 0.52 - 1.25 mg/dL [place] EGFR IF NonAfrican [place]ian 54.2 mL/min Abnormal >60 [place] Comment on above: KDIGO guidelines pro vide the following GFR categories: Stage GFR(ml/min/1.73 m2) Terms G1 >=90 Normal or high G2 60-89 Mildly decreased* G3a 45-59 Mildly to moderately decreased G3b 30-44 Moderately to severely decreased G4 15-29 Severely decreased G5 <15 Kidney failure *Relative to young adult level. In the absence of evidence of kidney damage, neither GFR category G1 nor G2 fulfill the criteria for CKD. The CKD-EPI equation is validated in individuals 18 years of age and older. Currently the best equation for estimating glomerular filtration rate (GFR) from serum creatinine in children is the Bedside Pelletier equation. It is less accurate in patients with extremes of muscle mass, restriction of dietary protein, ingestion of creatine, extra-renal metabolism of creatinine, or treatment with medications that affect renal tubular creatinine secretion. GFR/1.73 sq M predicted among blacks MDRD (S/P/Bld) [Vol rate/Area] 62.8 mL/min/{1.73_m2} >60 [place] Glucose [Mass/Vol] 88 mg/dL 70 - 100 mg/dL [facility], [place] Potassium [Moles/Vol] 4.0 mmol/L 3.5 - 5.1 mmol/L [facility], [place] Protein [Mass/Vol] 5.7 g/dL Low 6.3 - 8.2 g/dL [place] Sodium [Moles/Vol] 141 mmol/L 135 - 145 mmol/L [facility], [place] Urea nitrogen [Mass/Vol] 31 mg/dL High 7 - 20 mg/dL [place] Echo 2D/3D POLLO w/wo Contrast on 03-26-2020 Echo 2D/3D POLLO w/wo Contrast Normal [facility] Echocardiogram transesophage tere 03-26-2020 Left ventricular Ejection fraction 65 [place] LVEF MODALITY ECHO [place] TRANSESOPHAGEAL ECHOCARDIOGRAM PATIENT: Karen Kearns STUDY DATE: 03/26/2020 : 1940 AGE: 79 HT/WT: 177.8 cm (70 82.7 kg (182 in) lb) GENDER: M BP: 105 / 92 LOCATION: [facility] PATIENT Inpatient main STATUS: *ORDERING PHYSICIAN: * Missael Lacey *READING PHYSICIAN: * Sea Guajardo, *SWEATBAND MAKER: * Mynor Bassett MD [facility] [place] -- INDICATIONS: CABG. -- CONCLUSIONS SUMMARY: 1. Left ventricle: The cavity size is normal. The estimated ejection fraction is 65%. 2. No significant valve disease. -- STUDY DATA: Transesophageal echocardiography was performed. Procedure: Initial setup. Surface ECG leads, blood pressure measurements, and pulse oximetric signals were monitored. Image quality was good. A transesophageal probe was inserted by the attending cardiologistwithout difficulty. Complete 2D, complete spectral Doppler, and color flow Doppler images were acquired and archived for permanent storage and are available for subsequent review. Study status: Routine. Patient status: Inpatient. Location: Operating room. Consent: The risks, benefits, and alternatives to the procedure were explained to the patient and informed consent was obtained. -- FINDINGS LEFT VENTRICLE: The cavity size is normal. The estimated ejection fraction is 65%. RIGHT VENTRICLE: The cavity size is normal. Wall thickness is normal. Systolic function is normal. LEFT ATRIUM: The atrium is normal in size. There is no evidence of a thrombus in the atrial cavity or appendage. RIGHT ATRIUM: The atrium is normal in size. ATRIAL SEPTUM: No evidence of patent foramen ovale or atrial septal defect. MITRAL VALVE: Structurally normal valve. Doppler: There is trivial, less than 1+ regurgitation. AORTIC VALVE: Structurally normal valve. Trileaflet. Doppler: There is no stenosis. There is no regurgitation. TRICUSPID VALVE: Structurally normal valve. Doppler: There is trivial, less than 1+ regurgitation. PULMONIC VALVE: Structurally normal valve. Doppler: There is trivial, less than 1+ regurgitation. AORTA: There is mild, diffuse atheromatous plaque. PERICARDIUM: There is no pericardial effusion. SYSTEMIC VEINS: Inferior vena cava: The vessel is normal in size. Superior vena cava: The vessel is normal in size. PULMONARY VEINS: Visualization of the pulmonary venous anatomy is incomplete, but a significant abnormality is unlikely. Electronically signed by Sea Guajardo MD 03/26/2020 13:48 Prior Signatures: [facility] Incoming Cardiology Results From [employer] - 03/26/2020 1:49 PM EDT TRANSESOPHAGEAL ECHOCARDIOGRAM PATIENT: Karen Kearns STUDY DATE: 03/26/2020 : 1940 AGE: 79 HT/WT: 177.8 cm (70 82.7 kg (182 in) lb) GENDER: M BP: 105 / 92 LOCATION: [facility] PATIENT Inpatient main STATUS: *ORDERING PHYSICIAN: * Missael Lacey *READING PHYSICIAN: * Sea Guajardo, *SWEATBAND MAKER: * Mynor Bassett MD [facility] [place] -- INDICATIONS: CABG. -- CONCLUSIONS SUMMARY: 1. Left ventricle: The cavity size is normal. The estimated ejection fraction is 65%. 2. No significant valve disease. -- STUDY DATA: Transesophageal echocardiography was performed. Procedure: Initial setup. Surface ECG leads, blood pressure measurements, and pulse oximetric signals were monitored. Image quality was good. A transesophageal probe was inserted by the attending cardiologistwithout difficulty. Complete 2D, complete spectral Doppler, and color flow Doppler images were acquired and archived for permanent storage and are available for subsequent review. Study status: Routine. Patient status: Inpatient. Location: Operating room. Consent: The risks, benefits, and alternatives to the procedure were explained to the patient and informed consent was obtained. -- FINDINGS LEFT VENTRICLE: The cavity size is normal. The estimated ejection fraction is 65%. RIGHT VENTRICLE: The cavity size is normal. Wall thickness is normal. Systolic function is normal. LEFT ATRIUM: The atrium is normal in size. There is no evidence of a thrombus in the atrial cavity or appendage. RIGHT ATRIUM: The atrium is normal in size. ATRIAL SEPTUM: No evidence of patent foramen ovale or atrial septal defect. MITRAL VALVE: Structurally normal valve. Doppler: There is trivial, less than 1+ regurgitation. AORTIC VALVE: Structurally normal valve. Trileaflet. Doppler: There is no stenosis. There is no regurgitation. TRICUSPID VALVE: Structurally normal valve. Doppler: There is trivial, less than 1+ regurgitation. PULMONIC VALVE: Structurally normal valve. Doppler: There is trivial, less than 1+ regurgitation. AORTA: There is mild, diffuse atheromatous plaque. PERICARDIUM: There is no pericardial effusion. SYSTEMIC VEINS: Inferior vena cava: The vessel is normal in size. Superior vena cava: The vessel is normal in size. PULMONARY VEINS: Visualization of the pulmonary venous anatomy is incomplete, but a significant abnormality is unlikely. Electronically signed by Sea Guajardo MD 03/26/2020 13:48 Prior Signatures: [place], [place] Fibrinogenon 03-26-2020 Fibrinogen 155 mg/dL Low 200 - 400 mg/dL [place] Fibrinogen 153 mg/dL Low 200-400 [facility] Comment on above: Performed By: #### P T/AP, ABG, FIBGN, CMP3, HEMOG, PHOS3, MG3 ####[address] [place] [address] Fibrinogen 153 mg/dL Low 200 - 400 mg/dL [place] Fibrinogen 130 mg/dL Low 200-400 [facility] Comment on above: Performed By: #### P HOS3, FIBGN, CMP3, PT/AP, HEMDF, MG3, ABG, MDIFF ####[facility] [place] [address] Fibrinogen 155 mg/dL Low 200-400 [facility] Comment on above: Performed By: #### A BG, PHOS3, PT/AP, MG3, HEMOG, FIBGN, BMP3 ####[address] [place] [address] Fibrinogen 130 mg/dL Low 200 - 400 mg/dL [place] Fibrinogen 155 mg/dL Low 200 - 400 mg/dL [place] Interpretation and review of laboratory results Abnormal [place], [place] Test Performed by [facility], [address] [place] [address] [place], [place] Glucose,Bedsideon 03-26-2020 Glucose [Mass/Vol] 110 mg/dL High 70-100 [facility] Comment on above: Result Comment: Test performed by glucose meter. Results may be 10%-15% lowerthan serum/plasma values. (CLIA ID [id number]) Performed By: #### B GLU ####[facility] [id number] [place] [address] Glucose [Mass/Vol] 125 mg/dL High 70-100 [facility] Comment on above: Result Comment: Test performed by glucose meter. Results may be 10%-15% lowerthan serum/plasma values. (CLIA ID [id number]) Performed By: #### B GLU ####[employer] [id number] [place] [address] Glucose [Mass/Vol] 92 mg/dL Normal 70-100 [facility] Comment on above: Result Comment: Test performed by glucose meter. Results may be 10%-15% lowerthan serum/plasma values. (CLIA ID [id number]) Performed By: #### B GLU ####[employer] [place] [address] Glucose [Mass/Vol] 122 mg/dL High 70-100 [facility] Comment on above: Result Comment: Test performed by glucose meter. Results may be 10%-15% lowerthan serum/plasma values. (CLIA ID [id number]) Performed By: #### B GLU ####[employer] [place] [address] Glucose [Mass/Vol] 98 mg/dL Normal 70-100 [facility] Comment on above: Result Comment: Test performed by glucose meter. Results may be 10%-15% lowerthan serum/plasma values. (CLIA ID [id number]) Performed By: #### B GLU ####[employer] [place] [address] Glucose [Mass/Vol] 110 mg/dL High 70-100 [facility] Comment on above: Result Comment: Test performed by glucose meter. Results may be 10%-15% lowerthan serum/plasma values. (CLIA ID [id number]) Performed By: #### B GLU ####[employer] [id number] [place] [address] Glucose [Mass/Vol] 86 mg/dL Normal 70-100 [facility] Comment on above: Result Comment: Test performed by glucose meter. Results may be 10%-15% lowerthan serum/plasma values. (CLIA ID [id number]) Performed By: #### B GLU ####[employer] [address] [place] [address] Glucose [Mass/Vol] 81 mg/dL Normal 70-100 [facility] Comment on above: Result Comment: Test performed by glucose meter. Results may be 10%-15% lowerthan serum/plasma values. (CLIA ID [id number]) Performed By: #### B GLU ####[address] Glucose [Mass/Vol] 80 mg/dL Normal 70-100 [facility] Comment on above: Result Comment: Test performed by glucose meter. Results may be 10%-15% lowerthan serum/plasma values. (CLIA ID [id number]) Performed By: #### B GLU ####[address] Hemogramon 03-26-2020 Erythrocyte distribution width (RBC) [Ratio] 13.8 % Normal 11.5-14.5 [facility] Comment on above: Performed By: #### I CA, ABG, PT/AP, HEMOG, MG3, BMP3, PHOS3 ####[address] Hematocrit (Bld) [Volume fraction] 22.8 % Low 40.0-52.0 [facility] Comment on above: Performed By: #### I CA, ABG, PT/AP, HEMOG, MG3, BMP3, PHOS3 ####[address] [place], [place] Hemoglobin (Bld) [Mass/Vol] 7.5 g/dL Low 13.0-18.0 [facility] Comment on above: Performed By: #### I CA, ABG, PT/AP, HEMOG, MG3, BMP3, PHOS3 ####[address] MCH (RBC) [Entitic mass] 29.0 pg Normal 26.0-34.0 [facility] Comment on above: Performed By: #### I CA, ABG, PT/AP, HEMOG, MG3, BMP3, PHOS3 ####[address] MCHC 32.8 % Normal 32.0-36.0 [facility] Comment on above: Performed By: #### I CA, ABG, PT/AP, HEMOG, MG3, BMP3, PHOS3 ####[address] [place], [place] MCV (RBC) [Entitic vol] 88.4 fL Normal 80.0-98.0 [facility] Comment on above: Performed By: #### I CA, ABG, PT/AP, HEMOG, MG3, BMP3, PHOS3 ####[address] [place], [place] Platelet mean volume (Bld) [Entitic vol] 8.2 fL Normal 7.4-10.4 [facility] Comment on above: Performed By: #### I CA, ABG, PT/AP, HEMOG, MG3, BMP3, PHOS3 ####[address] [place], [place] Platelets (Bld) [#/Vol] 124 10*3/uL Low 140-440 [facility] Comment on above: Performed By: #### I CA, ABG, PT/AP, HEMOG, MG3, BMP3, PHOS3 ####[address] [place], [place] RBC (Bld) [#/Vol] 2.57 10*6/uL Low 4.40-5.90 [facility] Comment on above: Performed By: #### I CA, ABG, PT/AP, HEMOG, MG3, BMP3, PHOS3 ####[address] [place], [place] WBC (Bld) [#/Vol] 11.1 10*3/uL High 3.6-10.7 [facility] Comment on above: Performed By: #### I CA, ABG, PT/AP, HEMOG, MG3, BMP3, PHOS3 ####[address] [place], [place] Erythrocyte distribution width (RBC) [Ratio] 13.8 % Normal 11.5-14.5 [facility] Comment on above: Performed By: #### P T/AP, ABG, FIBGN, CMP3, HEMOG, PHOS3, MG3 ####[address] [place], [place] Hematocrit (Bld) [Volume fraction] 16.9 % Low 40.0-52.0 [facility] Comment on above: Performed By: #### P T/AP, ABG, FIBGN, CMP3, HEMOG, PHOS3, MG3 ####[address] Hemoglobin (Bld) [Mass/Vol] 5.7 g/dL Critically low 13.0-18.0 [facility] Comment on above: Performed By: #### P T/AP, ABG, FIBGN, CMP3, HEMOG, PHOS3, MG3 ####[address] MCH (RBC) [Entitic mass] 29.8 pg Normal 26.0-34.0 [facility] Comment on above: Performed By: #### P T/AP, ABG, FIBGN, CMP3, HEMOG, PHOS3, MG3 ####[address] [place], [place] MCHC 33.5 % Normal 32.0-36.0 [facility] Comment on above: Performed By: #### P T/AP, ABG, FIBGN, CMP3, HEMOG, PHOS3, MG3 ####[address] MCV (RBC) [Entitic vol] 89.0 fL Normal 80.0-98.0 [facility] Comment on above: Performed By: #### P T/AP, ABG, FIBGN, CMP3, HEMOG, PHOS3, MG3 ####[address] [place], [place] Platelet mean volume (Bld) [Entitic vol] 8.2 fL Normal 7.4-10.4 [facility] Comment on above: Performed By: #### P T/AP, ABG, FIBGN, CMP3, HEMOG, PHOS3, MG3 ####[address] [place], [place] Platelets (Bld) [#/Vol] 184 10*3/uL Normal 140-440 [facility] Comment on above: Performed By: #### P T/AP, ABG, FIBGN, CMP3, HEMOG, PHOS3, MG3 ####[address] [place], [place] RBC (Bld) [#/Vol] 1.90 10*6/uL Low 4.40-5.90 [facility] Comment on above: Performed By: #### P T/AP, ABG, FIBGN, CMP3, HEMOG, PHOS3, MG3 ####[address] WBC (Bld) [#/Vol] 16.7 10*3/uL High 3.6-10.7 [facility] Comment on above: Performed By: #### P T/AP, ABG, FIBGN, CMP3, HEMOG, PHOS3, MG3 ####[address] [place], [place] Erythrocyte distribution width (RBC) [Ratio] 13.9 % Normal 11.5-14.5 [facility] Comment on above: Performed By: #### A BG, PHOS3, PT/AP, MG3, HEMOG, FIBGN, BMP3 ####[address] [place], [place] Hematocrit (Bld) [Volume fraction] 31.0 % Low 40.0-52.0 [facility] Comment on above: Performed By: #### A BG, PHOS3, PT/AP, MG3, HEMOG, FIBGN, BMP3 ####[address] [place], [place] Hemoglobin (Bld) [Mass/Vol] 10.2 g/dL Low 13.0-18.0 [facility] Comment on above: Result Comment: repe ated Performed By: #### A BG, PHOS3, PT/AP, MG3, HEMOG, FIBGN, BMP3 ####[address] [place], [place] MCH (RBC) [Entitic mass] 29.3 pg Normal 26.0-34.0 [facility] Comment on above: Performed By: #### A BG, PHOS3, PT/AP, MG3, HEMOG, FIBGN, BMP3 ####[address] [place] MCHC 32.8 % Normal 32.0-36.0 [facility] Comment on above: Performed By: #### A BG, PHOS3, PT/AP, MG3, HEMOG, FIBGN, BMP3 ####[address] [place] MCV (RBC) [Entitic vol] 89.3 fL Normal 80.0-98.0 [facility] Comment on above: Performed By: #### A BG, PHOS3, PT/AP, MG3, HEMOG, FIBGN, BMP3 ####[address] [place], [place] Platelet mean volume (Bld) [Entitic vol] 9.1 fL Normal 7.4-10.4 [facility] Comment on above: Performed By: #### A BG, PHOS3, PT/AP, MG3, HEMOG, FIBGN, BMP3 ####[address] [place], [place] Platelets (Bld) [#/Vol] 125 10*3/uL Low 140-440 [facility] Comment on above: Performed By: #### A BG, PHOS3, PT/AP, MG3, HEMOG, FIBGN, BMP3 ####[address] [place], [place] RBC (Bld) [#/Vol] 3.48 10*6/uL Low 4.40-5.90 [facility] Comment on above: Performed By: #### A BG, PHOS3, PT/AP, MG3, HEMOG, FIBGN, BMP3 ####[address] [place], [place] WBC (Bld) [#/Vol] 19.0 10*3/uL High 3.6-10.7 [facility] Comment on above: Performed By: #### A BG, PHOS3, PT/AP, MG3, HEMOG, FIBGN, BMP3 ####[address] Hemogram w/ Autodiffon 03-26 Abs Baso Cnt 0.0 10*3/uL Normal 0.0-0.2 [facility] Comment on above: Performed By: #### F IBGN, BMP3, ICA, ABG, HEMDF, PT/AP ####[address] [place], [place] Abs Neutrophile Cnt 4.8 10*3/uL Normal 1.8-7.0 [facility] Comment on above: Performed By: #### F IBGN, BMP3, ICA, ABG, HEMDF, PT/AP ####[address] Basophils/100 WBC (Bld) 0.2 % Normal 0.0-2.0 [facility] Comment on above: Performed By: #### F IBGN, BMP3, ICA, ABG, HEMDF, PT/AP ####[address] [place], [place] Eosinophils (Bld) [#/Vol] 0.0 10*3/uL Normal 0.0-0.5 [facility] Comment on above: Performed By: #### F IBGN, BMP3, ICA, ABG, HEMDF, PT/AP ####[address] Eosinophils/100 WBC (Bld) 0.1 % Low 1.0-6.0 [facility] Comment on above: Performed By: #### F IBGN, BMP3, ICA, ABG, HEMDF, PT/AP ####[address] Erythrocyte distribution width (RBC) [Ratio] 14.1 % Normal 11.5-14.5 [facility] Comment on above: Performed By: #### F IBGN, BMP3, ICA, ABG, HEMDF, PT/AP ####[facility] [place], [place] Granulocytes/100 WBC (Bld) 70.1 % Normal 40.0-80.0 [facility] Comment on above: Performed By: #### F IBGN, BMP3, ICA, ABG, HEMDF, PT/AP ####[address] [place], [place] Hematocrit (Bld) [Volume fraction] 21.9 % Low 40.0-52.0 [facility] Comment on above: Performed By: #### F IBGN, BMP3, ICA, ABG, HEMDF, PT/AP ####[address] [place], [place] Hemoglobin (Bld) [Mass/Vol] 7.5 g/dL Low 13.0-18.0 [facility] Comment on above: Performed By: #### F IBGN, BMP3, ICA, ABG, HEMDF, PT/AP ####[address] [place], [place] Lymphocytes (Bld) [#/Vol] 1.2 10*3/uL Normal 1.0-4.3 [facility] Comment on above: Performed By: #### F IBGN, BMP3, ICA, ABG, HEMDF, PT/AP ####[address] [place], [place] Lymphocytes/100 WBC (Bld) 18.2 % Low 20.0-40.0 [facility] Comment on above: Performed By: #### F IBGN, BMP3, ICA, ABG, HEMDF, PT/AP ####[address] [place] MCH (RBC) [Entitic mass] 29.9 pg Normal 26.0-34.0 [facility] Comment on above: Performed By: #### F IBGN, BMP3, ICA, ABG, HEMDF, PT/AP ####[address] [place] MCHC 34.1 % Normal 32.0-36.0 [facility] Comment on above: Performed By: #### F IBGN, BMP3, ICA, ABG, HEMDF, PT/AP ####[address] [place] MCV (RBC) [Entitic vol] 87.8 fL Normal 80.0-98.0 [facility] Comment on above: Performed By: #### F IBGN, BMP3, ICA, ABG, HEMDF, PT/AP ####[address] [place], [place] Monocytes (Bld) [#/Vol] 0.8 10*3/uL Normal 0.0-0.8 [facility] Comment on above: Performed By: #### F IBGN, BMP3, ICA, ABG, HEMDF, PT/AP ####[address] [place], [place] Monocytes/100 WBC (Bld) 11.4 % High 2.0-10.0 [facility] Comment on above: Performed By: #### F IBGN, BMP3, ICA, ABG, HEMDF, PT/AP ####[address] [place], [place] Platelet mean volume (Bld) [Entitic vol] 8.3 fL Normal 7.4-10.4 [facility] Comment on above: Performed By: #### F IBGN, BMP3, ICA, ABG, HEMDF, PT/AP ####[address] [place], [place] Platelets (Bld) [#/Vol] 91 10*3/uL Low 140-440 [facility] Comment on above: Performed By: #### F IBGN, BMP3, ICA, ABG, HEMDF, PT/AP ####[address] RBC (Bld) [#/Vol] 2.49 10*6/uL Low 4.40-5.90 [facility] Comment on above: Performed By: #### F IBGN, BMP3, ICA, ABG, HEMDF, PT/AP ####[address] [place], [place] WBC (Bld) [#/Vol] 6.8 10*3/uL Normal 3.6-10.7 [facility] Comment on above: Performed By: #### F IBGN, BMP3, ICA, ABG, HEMDF, PT/AP ####[address] [place], [place] Erythrocyte distribution width (RBC) [Ratio] 13.7 % Normal 11.5-14.5 [facility] Comment on above: Performed By: #### P HOS3, FIBGN, CMP3, PT/AP, HEMDF, MG3, ABG, MDIFF ####[address] Hematocrit (Bld) [Volume fraction] 27.1 % Low 40.0-52.0 [facility] Comment on above: Performed By: #### P HOS3, FIBGN, CMP3, PT/AP, HEMDF, MG3, ABG, MDIFF ####[address] [place], [place] Hemoglobin (Bld) [Mass/Vol] 9.0 g/dL Low 13.0-18.0 [facility] Comment on above: Performed By: #### P HOS3, FIBGN, CMP3, PT/AP, HEMDF, MG3, ABG, MDIFF ####[address] MCH (RBC) [Entitic mass] 29.3 pg Normal 26.0-34.0 [facility] Comment on above: Performed By: #### P HOS3, FIBGN, CMP3, PT/AP, HEMDF, MG3, ABG, MDIFF ####[address] MCHC 33.0 % Normal 32.0-36.0 [facility] Comment on above: Performed By: #### P HOS3, FIBGN, CMP3, PT/AP, HEMDF, MG3, ABG, MDIFF ####[address] [place], [place] MCV (RBC) [Entitic vol] 88.7 fL Normal 80.0-98.0 [facility] Comment on above: Performed By: #### P HOS3, FIBGN, CMP3, PT/AP, HEMDF, MG3, ABG, MDIFF ####[address] Platelet mean volume (Bld) [Entitic vol] 9.3 fL Normal 7.4-10.4 [facility] Comment on above: Performed By: #### P HOS3, FIBGN, CMP3, PT/AP, HEMDF, MG3, ABG, MDIFF ####[address] Platelets (Bld) [#/Vol] 150 10*3/uL Normal 140-440 [facility] Comment on above: Performed By: #### P HOS3, FIBGN, CMP3, PT/AP, HEMDF, MG3, ABG, MDIFF ####[address] RBC (Bld) [#/Vol] 3.06 10*6/uL Low 4.40-5.90 [facility] Comment on above: Performed By: #### P HOS3, FIBGN, CMP3, PT/AP, HEMDF, MG3, ABG, MDIFF ####[address] WBC (Bld) [#/Vol] 20.0 10*3/uL High 3.6-10.7 [facility] Comment on above: Performed By: #### P HOS3, FIBGN, CMP3, PT/AP, HEMDF, MG3, ABG, MDIFF ####[address] [phone] Lactic Acid, Plasmaon 2019 Lactate [Moles/Vol] 2 mmol/L 0.7 - 2 mmol/L [place], [place] Test Performed by [facility], [address] [place] [address] [place] Leukodepleted Red Cellson Leukodepleted Red Cells Normal [facility] Comment on above: Performed By: #### S DP, CR5, LRC, PH5 ####[address] [address]#### FYA-A, ABID, E-A, LC-A ####[facility]#### TSGL ####[address] [address]RkfimCore[facility] Health [facility] Hospital#### PRP ####[address] [address] Leukodepleted Red Cells Normal [facility] Comment on above: Performed By: #### S DP, CR5, LRC, PH5 ####[address] [address]#### FYA-A, ABID, E-A, LC-A ####[facility]#### TSGL ####[address] [address]QxaehCorewell Health Greenville Hospital#### PRP ####[address] [address] Magnesiumon 03-26-2020 Magnesium [Mass/Vol] 2.2 mg/dL Normal 1.6-2.3 [facility] Comment on above: Performed By: #### I CA, ABG, PT/AP, HEMOG, MG3, BMP3, PHOS3 ####[address] [address] Magnesium [Mass/Vol] 2.2 mg/dL 1.6 - 2 .3 mg/dL [place] Magnesium [Mass/Vol] 2.6 mg/dL High 1.6-2.3 [facility] Comment on above: Performed By: #### P T/AP, ABG, FIBGN, CMP3, HEMOG, PHOS3, MG3 ####[address] Magnesium [Mass/Vol] 2.6 mg/dL High 1.6 - 2 .3 mg/dL [place] Magnesium [Mass/Vol] 3.0 mg/dL High 1.6-2.3 [facility] Comment on above: Performed By: #### P HOS3, FIBGN, CMP3, PT/AP, HEMDF, MG3, ABG, MDIFF ####[address] Magnesium [Mass/Vol] 3.4 mg/dL High 1.6-2.3 [facility] Comment on above: Performed By: #### A BG, PHOS3, PT/AP, MG3, HEMOG, FIBGN, BMP3 ####[address] Magnesium [Mass/Vol] 3.0 mg/dL High 1.6 - 2 .3 mg/dL [place] Magnesium [Mass/Vol] 3.4 mg/dL High 1.6 - 2 .3 mg/dL [place], [place] Manual Diffon 03-26-2020 Abs Eosin Cnt 0.0 10*3/uL Normal 0.0-0.5 [facility] Comment on above: Performed By: #### P HOS3, FIBGN, CMP3, PT/AP, HEMDF, MG3, ABG, MDIFF ####[address] Abs Lymph Cnt 5.2 10*3/uL High 1.1-4.5 [facility] Comment on above: Performed By: #### P HOS3, FIBGN, CMP3, PT/AP, HEMDF, MG3, ABG, MDIFF ####[address] [place] [address] Abs Monocyte Cnt 1.0 10*3/uL Normal 0.2-1.1 [facility] Comment on above: Performed By: #### P HOS3, FIBGN, CMP3, PT/AP, HEMDF, MG3, ABG, MDIFF ####[address] [place], [place] Abs Neutrophile Cnt 13.8 10*3/uL High 2.2-8.2 [facility] Comment on above: Performed By: #### P HOS3, FIBGN, CMP3, PT/AP, HEMDF, MG3, ABG, MDIFF ####[address] Bands 16 % Normal [facility] Comment on above: Performed By: #### P HOS3, FIBGN, CMP3, PT/AP, HEMDF, MG3, ABG, MDIFF ####[address] Basophils 0 % Normal 0-2 [facility] Comment on above: Performed By: #### P HOS3, FIBGN, CMP3, PT/AP, HEMDF, MG3, ABG, MDIFF ####[address] Comment: SLIDE SCANNED Normal [facility] Comment on above: Performed By: #### P HOS3, FIBGN, CMP3, PT/AP, HEMDF, MG3, ABG, MDIFF ####[address] Eosinophils 0 % Low 1-6 [facility] Comment on above: Performed By: #### P HOS3, FIBGN, CMP3, PT/AP, HEMDF, MG3, ABG, MDIFF ####[address] Lymphocytes 26 % Normal [facility] Comment on above: Performed By: #### P HOS3, FIBGN, CMP3, PT/AP, HEMDF, MG3, ABG, MDIFF ####[address] Monocytes 5 % Normal [facility] Comment on above: Performed By: #### P HOS3, FIBGN, CMP3, PT/AP, HEMDF, MG3, ABG, MDIFF ####[address] [place], [place] RBC Morphology NORMAL Normal [facility] Comment on above: Performed By: #### P HOS3, FIBGN, CMP3, PT/AP, HEMDF, MG3, ABG, MDIFF ####[address] [place], [place] Seg Neutrophils 53 % Normal [facility] Comment on above: Performed By: #### P HOS3, FIBGN, CMP3, PT/AP, HEMDF, MG3, ABG, MDIFF ####[address] [place], [place] Abs Baso Cnt 0.0 10*3/uL Normal 0.0-0.2 [facility] Comment on above: Performed By: #### P HOS3, FIBGN, CMP3, PT/AP, HEMDF, MG3, ABG, MDIFF ####[address] Cells counted 100 Normal [facility] Comment on above: Performed By: #### P HOS3, FIBGN, CMP3, PT/AP, HEMDF, MG3, ABG, MDIFF ####[address] [place], [place] Manual Differentialon 2019 Absolute Baso # 0.0 10*3/uL 0 - 0.2 10*3/uL [facility], [place] Absolute Eos # 0.0 10*3/uL 0 - 0.5 10*3/uL [facility], [place] Absolute Lymph # 5.2 10*3/uL High 1.1 - 4.5 10*3/uL [facility], [place] Absolute Lane # 1.0 10*3/uL 0.2 - 1.1 10*3/uL [place], [place] Absolute Neut # 13.8 10*3/uL High 2.2 - 8.2 10*3/uL [facility] [place] Bands 16 % [facility] [place] Basophils 0 % 0 - 2 % [facility] [place] Comment SLIDE SCANNED [facility] [place] Eosinophils 0 % Low 1 - 6 % [facility] [place] Interpretation and review of laboratory results Abnormal [facility] [place] Lymphocytes 26 % [facility] [place] Monocytes 5 % [facility] [place] RBC morphology finding Nom (Bld) NORMAL [facility] [place] Seg Neutrophils 53 % [facility] [place] TOTAL CELLS COUNTED 100 [facility] [place] Test Performed by [facility], [facility] [place] [address] [facility] [place] Otheron 03-26-2020 Interpretation and review of laboratory results Abnormal [facility] [place] Test Performed by [facility], [facility] [place] [address] [facility] [place] Interpretation and review of laboratory results Abnormal [facility] [place] Test Performed by [facility], [facility] [place] [address] [facility] [place] Interpretation and review of laboratory results Abnormal [facility] [place] Test Performed by [facility], [facility] [place] [address] [facility] [place] Interpretation and review of laboratory results Abnormal [facility] [place] Test Performed by [facility], [facility] [place] [address] [facility] [place] Interpretation and review of laboratory results Abnormal [facility] [place] Test Performed by [facility], [facility] [place] [address] [facility] [place] Interpretation and review of laboratory results Abnormal [facility] [place] Test Performed by [facility], [facility] [place] [address] [facility] [place] Interpretation and review of laboratory results Abnormal [facility] [place] Test Performed by [facility], [address] [place] [address] [facility] [place] Interpretation and review of laboratory results Abnormal [facility] [place] Test Performed by [facility], [address] [place] [address] [facility], [place] Interpretation and review of laboratory results Abnormal [facility] [place] Test Performed by [facility], [facility] [place] [address] [facility] [place] Test Performed by [facility], [address] [place] [address] [facility] [place] PATHOGEN REDUCED LR PPHRon 1 PATHOGEN REDUCED LR PPHR Normal [facility] Comment on above: Performed By: #### S DP, CR5, LRC, PH5 ####[address] [address] [place] [address]#### FYA-A, ABID, E-A, LC-A ####[facility]#### TSGL ####[address] [place], [place] [address]bplhCore[facility]#### PRP ####[address] [address] POCT Glucoseon 03-26-2020 Glucose [Mass/Vol] 118 mg/dL High 70 - 100 mg/dL [facility], [place] Comment on above: Test performed by gl ucose meter. Results may be 10%-15% lower than serum/plasma values. (CLIA ID [id number]) Interpretation and review of laboratory results Abnormal [facility] [place] Test Performed by [facility], [facility] [place] [address] [facility], [place] Glucose [Mass/Vol] 110 mg/dL High 70 - 100 mg/dL [facility], [place] Comment on above: Test performed by gl ucose meter. Results may be 10%-15% lower than serum/plasma values. (CLIA ID [id number]) Glucose [Mass/Vol] 125 mg/dL High 70 - 100 mg/dL [facility]- [place], [place] Comment on above: Test performed by gl ucose meter. Results may be 10%-15% lower than serum/plasma values. (CLIA ID [id number]) Interpretation and review of laboratory results Abnormal [facility]- [place], [place] Test Performed by [facility], [address] [place] [address] [facility] [place] Glucose [Mass/Vol] 92 mg/dL 70 - 100 mg/dL [facility] [place] Comment on above: Test performed by gl ucose meter. Results may be 10%-15% lower than serum/plasma values. (CLIA ID [id number]) Test Performed by [facility], [address] [place] [address] [facility]- [place] Glucose [Mass/Vol] 122 mg/dL High 70 - 100 mg/dL [facility]- [place] Comment on above: Test performed by gl ucose meter. Results may be 10%-15% lower than serum/plasma values. (CLIA ID [id number]) Interpretation and review of laboratory results Abnormal [facility]- [place], [place] Test Performed by [facility], [address] [place] [address] [facility]- [place], [place] Glucose [Mass/Vol] 98 mg/dL 70 - 100 mg/dL [facility], [place] Comment on above: Test performed by gl ucose meter. Results may be 10%-15% lower than serum/plasma values. (CLIA ID [id number]) Test Performed by [facility], [address] [place] [address] [facility]- [place], [place] Glucose [Mass/Vol] 110 mg/dL High 70 - 100 mg/dL [facility], [place] Comment on above: Test performed by gl ucose meter. Results may be 10%-15% lower than serum/plasma values. (CLIA ID [id number]) Interpretation and review of laboratory results Abnormal [facility]- [place] Test Performed by [facility], [address] [place] [address] [facility]- [place] Glucose [Mass/Vol] 86 mg/dL 70 - 100 mg/dL [facility]- [place], [place] Comment on above: Test performed by gl ucose meter. Results may be 10%-15% lower than serum/plasma values. (CLIA ID [id number]) Test Performed by [facility], [address] [place] [address] [facility]- [place] Glucose [Mass/Vol] 81 mg/dL 70 - 100 mg/dL [place], [place] Comment on above: Test performed by gl ucose meter. Results may be 10%-15% lower than serum/plasma values. (CLIA ID [id number]) Test Performed by [facility], [address] [place] [address] [place], [place] Glucose [Mass/Vol] 80 mg/dL 70 - 100 mg/dL [place], [place] Comment on above: Test performed by gl ucose meter. Results may be 10%-15% lower than serum/plasma values. (CLIA ID [id number]) POOLED CRYO-5 PKon 0 POOLED CRYO-5 PK Normal [facility] Comment on above: Performed By: #### S DP, CR5, LRC, PH5 ####[address] [address]#### FYA-A, ABID, E-A, LC-A ####[facility]#### TSGL ####[address] [id number] [place] [address]#### PRP ####[address] [address] PROTIME/INR & PTTon 03-26-20 20 aPTT Coag (Bld) [Time] 41.9 s High 20 - 30.5 s [place], [place] Comment on above: NOTE: The therapeuti c time for Heparin anticoagulation, based on Xa activity inhibition, is an APTT of 46-80 seconds. INR Coag (PPP) [Relative time] 1.3 {INR} [place], [place] Comment on above: Recommended Anticoag ulant Therapy: SEE BELOW ----- INR of 2.0 - 3.0 : - Prophylaxis of Venous Thrombosis (high-risk surgery) - Treatment of Venous Thrombosis - Treatment of Pulmonary Embolism (Includes tissue heart valves, Acute Myocardial Infarction to prevent systemic embolism, Valvular Heart Disease, and Atrial Fibrillation) ----- INR of 2.5 - 3.5 : - Mechanical Prosthetic Valves (high risk) - If oral anticoagulant therapy is used to prevent Myocardial Infarction PT Coag (PPP) [Time] 13.5 s High 9 - 12 s [place], [place] Comment on above: . aPTT Coag (Bld) [Time] 36.2 s High 20 - 30.5 s [place], [place] Comment on above: NOTE: The therapeuti c time for Heparin anticoagulation, based on Xa activity inhibition, is an APTT of 46-80 seconds. INR Coag (PPP) [Relative time] 1.4 {INR} [place], [place] Comment on above: Recommended Anticoag ulant Therapy: SEE BELOW ----- INR of 2.0 - 3.0 : - Prophylaxis of Venous Thrombosis (high-risk surgery) - Treatment of Venous Thrombosis - Treatment of Pulmonary Embolism (Includes tissue heart valves, Acute Myocardial Infarction to prevent systemic embolism, Valvular Heart Disease, and Atrial Fibrillation) ----- INR of 2.5 - 3.5 : - Mechanical Prosthetic Valves (high risk) - If oral anticoagulant therapy is used to prevent Myocardial Infarction PT Coag (PPP) [Time] 14.6 s High 9 - 12 s [place], [place] Comment on above: . Pheresis Leuko Reducedon Pheresis Leuko Reduced Normal [facility] Comment on above: Performed By: #### S DP, CR5, LRC, PH5 ####[place] [address]#### FYA-A, ABID, E-A, LC-A ####[facility]#### TSGL ####[address]#### PRP ####[address] [address] Phosphoruson 03-26-2020 Phosphate [Mass/Vol] 5.4 mg/dL High 2.5-4.5 [facility] Comment on above: Performed By: #### I CA, ABG, PT/AP, HEMOG, MG3, BMP3, PHOS3 ####[address] [address] Phosphate [Mass/Vol] 5.4 mg/dL High 2.5 - 4 .5 mg/dL [facility] Phosphate [Mass/Vol] 4.5 mg/dL Normal 2.5-4.5 [facility] Comment on above: Performed By: #### P T/AP, ABG, FIBGN, CMP3, HEMOG, PHOS3, MG3 ####[address] Phosphate [Mass/Vol] 4.5 mg/dL 2.5 - 4 .5 mg/dL [facility], [place] Phosphate [Mass/Vol] 4.0 mg/dL Normal 2.5-4.5 [facility] Comment on above: Performed By: #### P HOS3, FIBGN, CMP3, PT/AP, HEMDF, MG3, ABG, MDIFF ####[address] Phosphate [Mass/Vol] 3.9 mg/dL Normal 2.5-4.5 [facility] Comment on above: Performed By: #### A BG, PHOS3, PT/AP, MG3, HEMOG, FIBGN, BMP3 ####[address] Phosphate [Mass/Vol] 4.0 mg/dL 2.5 - 4 .5 mg/dL [facility], [place] Phosphate [Mass/Vol] 3.9 mg/dL 2.5 - 4 .5 mg/dL [facility], [place] Protime AND APTTon 10-12-202 0 aPTT Coag (Bld) [Time] 37.0 s High 20.0-30.5 [facility] Comment on above: Result Comment: NOTE : The therapeutic time for Heparin anticoagulation,based on Xa activity inhibition, is an APTT of 46-80seconds. Performed By: #### I CA, ABG, PT/AP, HEMOG, MG3, BMP3, PHOS3 ####[address] INR 1.3 High 0.9-1.1 [facility] Comment on above: Result Comment: Ty mmended Anticoagulant Therapy: SEE BELOW----- INR of 2.0 - 3.0 : - Prophylaxis of Venous Thrombosis (high-risk surgery) - Treatment of Venous Thrombosis - Treatment of Pulmonary Embolism (Includes tissue heart valves, Acute Myocardial Infarction to prevent systemic embolism, Valvular Heart Disease, and Atrial Fibrillation)----- INR of 2.5 - 3.5 : - Mechanical Prosthetic Valves (high risk) - If oral anticoagulant therapy is used to prevent Myocardial Infarction Performed By: #### I CA, ABG, PT/AP, HEMOG, MG3, BMP3, PHOS3 ####[facility] [id number], [place] PT Coag (PPP) [Time] 13.6 s High 9.0-12.0 [facility] [address] [facility] Comment on above: Result Comment: . Performed By: #### I CA, ABG, PT/AP, HEMOG, MG3, BMP3, PHOS3 ####[facility] [address] [place] [address] [place], [place] aPTT Coag (Bld) [Time] 36.2 s High 20.0-30.5 [facility] Comment on above: Result Comment: NOTE : The therapeutic time for Heparin anticoagulation,based on Xa activity inhibition, is an APTT of 46-80seconds. Performed By: #### P T/AP, ABG, FIBGN, CMP3, HEMOG, PHOS3, MG3 ####[facility] [address], [place] INR 1.4 High 0.9-1.1 [facility] Comment on above: Result Comment: Ty mmended Anticoagulant Therapy: SEE BELOW----- INR of 2.0 - 3.0 : - Prophylaxis of Venous Thrombosis (high-risk surgery) - Treatment of Venous Thrombosis - Treatment of Pulmonary Embolism (Includes tissue heart valves, Acute Myocardial Infarction to prevent systemic embolism, Valvular Heart Disease, and Atrial Fibrillation)----- INR of 2.5 - 3.5 : - Mechanical Prosthetic Valves (high risk) - If oral anticoagulant therapy is used to prevent Myocardial Infarction Performed By: #### P T/AP, ABG, FIBGN, CMP3, HEMOG, PHOS3, MG3 ####[facility] [id number] [address] PT Coag (PPP) [Time] 14.6 s High 9.0-12.0 [facility] Comment on above: Result Comment: . Performed By: #### P T/AP, ABG, FIBGN, CMP3, HEMOG, PHOS3, MG3 ####[place] [address] [place] [address] aPTT Coag (Bld) [Time] 35.3 s High 20.0-30.5 [facility] Comment on above: Result Comment: NOTE : The therapeutic time for Heparin anticoagulation,based on Xa activity inhibition, is an APTT of 46-80seconds. Performed By: #### P HOS3, FIBGN, CMP3, PT/AP, HEMDF, MG3, ABG, MDIFF ####[address] INR 1.3 High 0.9-1.1 [facility] Comment on above: Result Comment: Ty mmended Anticoagulant Therapy: SEE BELOW----- INR of 2.0 - 3.0 : - Prophylaxis of Venous Thrombosis (high-risk surgery) - Treatment of Venous Thrombosis - Treatment of Pulmonary Embolism (Includes tissue heart valves, Acute Myocardial Infarction to prevent systemic embolism, Valvular Heart Disease, and Atrial Fibrillation)----- INR of 2.5 - 3.5 : - Mechanical Prosthetic Valves (high risk) - If oral anticoagulant therapy is used to prevent Myocardial Infarction Performed By: #### P HOS3, FIBGN, CMP3, PT/AP, HEMDF, MG3, ABG, MDIFF ####[place] [id number] [place], [place] PT Coag (PPP) [Time] 14.0 s High 9.0-12.0 [facility] Comment on above: Result Comment: . Performed By: #### P HOS3, FIBGN, CMP3, PT/AP, HEMDF, MG3, ABG, MDIFF ####[address] [place] [address] aPTT Coag (Bld) [Time] 26.8 s Normal 20.0-30.5 [facility] Comment on above: Result Comment: NOTE : The therapeutic time for Heparin anticoagulation,based on Xa activity inhibition, is an APTT of 46-80seconds. Performed By: #### A BG, PHOS3, PT/AP, MG3, HEMOG, FIBGN, BMP3 ####[address] INR 1.3 High 0.9-1.1 [facility] Comment on above: Result Comment: Ty mmended Anticoagulant Therapy: SEE BELOW----- INR of 2.0 - 3.0 : - Prophylaxis of Venous Thrombosis (high-risk surgery) - Treatment of Venous Thrombosis - Treatment of Pulmonary Embolism (Includes tissue heart valves, Acute Myocardial Infarction to prevent systemic embolism, Valvular Heart Disease, and Atrial Fibrillation)----- INR of 2.5 - 3.5 : - Mechanical Prosthetic Valves (high risk) - If oral anticoagulant therapy is used to prevent Myocardial Infarction Performed By: #### A BG, PHOS3, PT/AP, MG3, HEMOG, FIBGN, BMP3 ####[address] PT Coag (PPP) [Time] 14.0 s High 9.0-12.0 [facility] Comment on above: Result Comment: . Performed By: #### A BG, PHOS3, PT/AP, MG3, HEMOG, FIBGN, BMP3 ####[address] Protime/INR & PTTon 10-12-20 20 aPTT Coag (Bld) [Time] 37 s High 20 - 30.5 s [place], [place] Comment on above: NOTE: The therapeuti c time for Heparin anticoagulation, based on Xa activity inhibition, is an APTT of 46-80 seconds. INR Coag (PPP) [Relative time] 1.3 {INR} [place], [place] Comment on above: Recommended Anticoag ulant Therapy: SEE BELOW ----- INR of 2.0 - 3.0 : - Prophylaxis of Venous Thrombosis (high-risk surgery) - Treatment of Venous Thrombosis - Treatment of Pulmonary Embolism (Includes tissue heart valves, Acute Myocardial Infarction to prevent systemic embolism, Valvular Heart Disease, and Atrial Fibrillation) ----- INR of 2.5 - 3.5 : - Mechanical Prosthetic Valves (high risk) - If oral anticoagulant therapy is used to prevent Myocardial Infarction Interpretation and review of laboratory results Abnormal [place], [place] PT Coag (PPP) [Time] 13.6 s High 9 - 12 s [place], [place] Comment on above: . Test Performed by [facility], [address] [place] [address], [place] [address] [place], [place] aPTT Coag (Bld) [Time] 35.3 s High 20 - 30.5 s [place], [place] Comment on above: NOTE: The therapeuti c time for Heparin anticoagulation, based on Xa activity inhibition, is an APTT of 46-80 seconds. INR Coag (PPP) [Relative time] 1.3 {INR} [place], [place] Comment on above: Recommended Anticoag ulant Therapy: SEE BELOW ----- INR of 2.0 - 3.0 : - Prophylaxis of Venous Thrombosis (high-risk surgery) - Treatment of Venous Thrombosis - Treatment of Pulmonary Embolism (Includes tissue heart valves, Acute Myocardial Infarction to prevent systemic embolism, Valvular Heart Disease, and Atrial Fibrillation) ----- INR of 2.5 - 3.5 : - Mechanical Prosthetic Valves (high risk) - If oral anticoagulant therapy is used to prevent Myocardial Infarction PT Coag (PPP) [Time] 14 s High 9 - 12 s [place], [place] Comment on above: . aPTT Coag (Bld) [Time] 26.8 s 20 - 30.5 s [place], [place] Comment on above: NOTE: The therapeuti c time for Heparin anticoagulation, based on Xa activity inhibition, is an APTT of 46-80 seconds. INR Coag (PPP) [Relative time] 1.3 {INR} [place], [place] Comment on above: Recommended Anticoag ulant Therapy: SEE BELOW ----- INR of 2.0 - 3.0 : - Prophylaxis of Venous Thrombosis (high-risk surgery) - Treatment of Venous Thrombosis - Treatment of Pulmonary Embolism (Includes tissue heart valves, Acute Myocardial Infarction to prevent systemic embolism, Valvular Heart Disease, and Atrial Fibrillation) ----- INR of 2.5 - 3.5 : - Mechanical Prosthetic Valves (high risk) - If oral anticoagulant therapy is used to prevent Myocardial Infarction Interpretation and review of laboratory results Abnormal [place], [place] PT Coag (PPP) [Time] 14 s High 9 - 12 s [place], [place] Comment on above: . Test Performed by [facility], [address] [place] [address] [place], [place] Single Donor Plasma (CP2D)on 03-26-2020 Single Donor Plasma (CP2D) Normal [facility] Comment on above: Performed By: #### S DP, CR5, LRC, PH5 ####[address] [address]#### FYA-A, ABID, E-A, LC-A ####[facility]#### TSGL ####[address] [address]#### PRP ####[address] [address] Single Donor Plasma (CP2D) Normal [facility] Comment on above: Performed By: #### S DP, CR5, LRC, PH5 ####[address] [address]#### FYA-A, ABID, E-A, LC-A ####[facility]#### TSGL ####[address] [address] [place] [address]#### PRP ####[address] [address] XR CHEST PORTABLEon 03-26-[address] [place] [address] Incoming Radiology Results From [facility] - 03/26/2020 11:34 PM EDT Patient Name: KAREN KEARNS ---Diagnostic Radiology--- Exam Date/Time 03/26/2020 21:10:12 EDT Exam CR Chest Portable Ordering Physician [id number] CARSON Accession Number [id number] CPT4 Codes 31803 () Reason For Exam post operative Report SINGLE FRONTAL VIEW OF THE CHEST CLINICAL INDICATION: post operative TECHNIQUE: Single frontal view of the chest COMPARISON: 03/26/2020 FINDINGS: Endotracheal tube tip 6.1 cm above the bert. Blair-Dhaval catheter tip is in the proximal right pulmonary artery. NG tube tip is not included on the study but is at least as far distal as the gastric fundus. No pneumothorax seen. There appear to be mediastinal drains there is extensive overlapping tubing in wiring. Left chest tube terminates apically. No definite pneumothorax seen. Mild right basilar atelectasis or infiltrate. Left lung is small compared to the right, similar to yesterday's study. IMPRESSION: 1. Tubes and lines as described. Right basilar atelectasis or infiltrate. Report Dictated on --- Final --- Dictated: 03/26/2020 11:30 pm Dictating Physician: MD SHELLEY JOHN R Signed Date and Time: 03/26/2020 11:32 pm Signed by: MD SHELLEY JOHN R Transcribed Date and Time: 03/26/2020 11:30 [place], [place] Patient Name: KAREN KEARNS ---Diagnostic Radiology--- Exam Date/Time 03/26/2020 21:10:12 EDT Exam CR Chest Portable Ordering Physician ANGELY MELTON Accession Number [id number] CPT4 Codes 29060 () Reason For Exam post operative Report SINGLE FRONTAL VIEW OF THE CHEST CLINICAL INDICATION: post operative TECHNIQUE: Single frontal view of the chest COMPARISON: 03/26/2020 FINDINGS: Endotracheal tube tip 6.1 cm above the bert. Blair-Dhaval catheter tip is in the proximal right pulmonary artery. NG tube tip is not included on the study but is at least as far distal as the gastric fundus. No pneumothorax seen. There appear to be mediastinal drains there is extensive overlapping tubing in wiring. Left chest tube terminates apically. No definite pneumothorax seen. Mild right basilar atelectasis or infiltrate. Left lung is small compared to the right, similar to yesterday's study. IMPRESSION: 1. Tubes and lines as described. Right basilar atelectasis or infiltrate. Report Dictated on --- Final --- Dictated: 03/26/2020 11:30 pm Dictating Physician: MD SHELLEY JOHN R Signed Date and Time: 03/26/2020 11:32 pm Signed by: MD SHELLEY JOHN R Transcribed Date and Time: 03/26/2020 11:30 [place], [place] Patient Name: KAREN KEARNS ---Diagnostic Radiology--- Exam Date/Time 03/26/2020 17:30:04 EDT Exam CR Chest Portable Ordering Physician ANGELY MELTON Accession Number [id number] CPT4 Codes 42001 () Reason For Exam bleeding Report PORTABLE CHEST 03/26/2020 4:40 PM Clinical indication: bleeding Comparison: 03/26/2020 12:57 PM. Endotracheal tube tip projects about 5 cm above the bert. Oral gastric tube extends into the abdomen and off the margin of the image. Right internal jugular Blair-Dhaval catheter tip projects in the right pulmonary artery. A chest tube is present at the left thoracic base. Sternotomy wires are noted. The cardiac silhouette is unchanged in size. There is increased hazy opacity in the left hemithorax probably related to pleural fluid and atelectasis. No pneumothorax is noted. Multiple rib deformities appear unchanged. Right lung is clear. IMPRESSION: Increased pleural fluid and atelectasis on the left Report Dictated on --- Final --- Dictated: 03/26/2020 5:30 pm Dictating Physician: MD SAINI DIANE Signed Date and Time: 03/26/2020 5:32 pm Signed by: MD SAINI DIANE Transcribed Date and Time: 03/26/2020 5:30 [place], [place] Prabhu, Summa Incoming Radiology [facility] - 03/26/2020 5:34 PM EDT Patient Name: KAREN KEARNS ---Diagnostic Radiology--- Exam Date/Time 03/26/2020 17:30:04 EDT Exam CR Chest Portable Ordering Physician ANGELY MELTON Accession Number [id number] CPT4 Codes 25068 () Reason For Exam bleeding Report PORTABLE CHEST 03/26/2020 4:40 PM Clinical indication: bleeding Comparison: 03/26/2020 12:57 PM. Endotracheal tube tip projects about 5 cm above the bert. Oral gastric tube extends into the abdomen and off the margin of the image. Right internal jugular Blair-Dhaval catheter tip projects in the right pulmonary artery. A chest tube is present at the left thoracic base. Sternotomy wires are noted. The cardiac silhouette is unchanged in size. There is increased hazy opacity in the left hemithorax probably related to pleural fluid and atelectasis. No pneumothorax is noted. Multiple rib deformities appear unchanged. Right lung is clear. IMPRESSION: Increased pleural fluid and atelectasis on the left Report Dictated on --- Final --- Dictated: 03/26/2020 5:30 pm Dictating Physician: MD SAINI DIANE Signed Date and Time: 03/26/2020 5:32 pm Signed by: MD SAINI DIANE Transcribed Date and Time: 03/26/2020 5:30 [place], [place] Patient Name: KAREN KEARNS ---Diagnostic Radiology--- Exam Date/Time 03/26/2020 13:14:40 EDT Exam CR Chest Portable Ordering Physician ANGELY MELTON Accession Number [id number] CPT4 Codes 61565 () Reason For Exam ETT placement Report CHEST (Frontal View) History: Postop, tube placement Comparison: 03/23/2020 Findings: Frontal chest view shows the tip of tracheal tube at 4.5 cm above the bert. Enteric tube extends below the diaphragm. Tip of Blair-Dhaval catheter overlies the proximal right main pulmonary artery. There has been medial sternotomy and chest tubes placement. There is left basilar atelectasis/infiltrate with probably small pleural effusion. The heart is normal in size. There are atherosclerotic calcifications. There is no mediastinal widening, pulmonary congestion, pneumothorax, or other significant interval change. Report Dictated on --- Final --- Dictated: 03/26/2020 1:49 pm Dictating Physician: MD BALJIT, AHMAD Signed Date and Time: 03/26/2020 1:52 pm Signed by: MD SMILEY AHMAD Transcribed Date and Time: 03/26/2020 1:49 [place], [place] Prabhu, Sunita Incoming Radiology Results From [facility] - 03/26/2020 1:53 PM EDT Patient Name: KAREN KEARNS ---Diagnostic Radiology--- Exam Date/Time 03/26/2020 13:14:40 EDT Exam CR Chest Portable Ordering Physician [id number] CARSON Accession Number [id number] CPT4 Codes 27140 () Reason For Exam ETT placement Report CHEST (Frontal View) History: Postop, tube placement Comparison: 03/23/2020 Findings: Frontal chest view shows the tip of tracheal tube at 4.5 cm above the bert. Enteric tube extends below the diaphragm. Tip of Blair-Dhaval catheter overlies the proximal right main pulmonary artery. There has been medial sternotomy and chest tubes placement. There is left basilar atelectasis/infiltrate with probably small pleural effusion. The heart is normal in size. There are atherosclerotic calcifications. There is no mediastinal widening, pulmonary congestion, pneumothorax, or other significant interval change. Report Dictated on --- Final --- Dictated: 03/26/2020 1:49 pm Dictating Physician: MD SMILEY AHMAD Signed Date and Time: 03/26/2020 1:52 pm Signed by: MD SMILEY AHMAD Transcribed Date and Time: 03/26/2020 1:49 [place], [place] ANTIBODY IDENTIFICATIONon Sodium [Moles/Vol] POS, ANTI E POS, ANTI Fya [place], [place] APTTon 03-25-2020 aPTT Coag (Bld) [Time] 29.3 s Normal 20.0-30.5 [facility] Comment on above: Result Comment: NOTE : The therapeutic time for Heparin anticoagulation,based on Xa activity inhibition, is an APTT of 46-80seconds. Performed By: #### A PTT, MG3, HEMDF, HA1C2, PT ####[facility] [place] [address] aPTT Coag (Bld) [Time] 29.3 s 20 - 30.5 s [place], [place] Comment on above: NOTE: The therapeuti c time for Heparin anticoagulation, based on Xa activity inhibition, is an APTT of 46-80 seconds. Antibody Identificationon Antibody Identification Antibody Identification: POS, ANTI E POS, ANTI Fya Normal [facility] Comment on above: Performed By: #### S DP, CR5, LRC, PH5 ####[address] [address]#### FYA-A, ABID, E-A, LC-A ####[facility]#### TSGL ####[address]#### PRP ####[address] [address] Bedside spirometryon 020 Name: KAREN KEARNS PatientID: [id number] Gender: Male Birthdate: 1940 Study Date: 03/25/2020 10:15:29 Age: 79 Race: White or Height: 70.0 in, 177.8 cm Weight: 182.0 lbs, 82.7 kg Smoke Status: Never Pack Years: Tbco Prod: Cigarettes Ordering Physician: [id number] Interpreting Physician: [id number] Assistant Manager Quality Management: SREEDHAR Testing Location: [facility] Diagnosis: Pre op Spirometry Units Pred PreDrug Pre%Pred Post Post%Pred %Change FVC L,btps 4.03 3.28 81. FEV1 L,btps 2.87 2.49 87. FEV1/FVC (%) % 72. 76. 106. CJN12-24% L/s 1.97 2.05 104. FEFmax L/s 7.23 6.87 95. MVV in,btps 108.80 Lung Volumes (Body Box) Units Pred PreDrug Pre%Pred TLC L,btps 6.89 VC L,btps 4.03 IC L,btps 3.10 FRC L,btps 3.79 ERV L,btps 0.93 RV L,btps 2.86 RV/TLC (%) % 42. VTG L,btps RAW H2O/L/s 1.17 SGaw cmH2O/L 0.23 Diffusion (DLCO) Units Pred PreDrug Pre%Pred DLCO ml/min/mmHg,stpd 27.24 DLCOHb ml/min/mmHg,stpd 27.24 VAsb L,btps 6.72 D/VAsb ml/min/mmHg/L,stpd 4.05 D/VAsbHb ml/min/mmHg/L,stpd 4.05 VInsp L Hgb g/dl COHb % Lung Mechanics Units Pred PreDrug Pre%Pred PImax /MIP cmH2O -59.60 PEmax /MEP cmH2O 107.20 PREMIUM SERVICE REPRESENTATIVE NOTES 44441- EARNESTINE Spirometry best effort, met acceptability and repeatability guidelines. Sitting upright at side of bed. Tests to perform: RT17 - BEDSIDE SPIROMETRY PHYSICIAN INTERPRETATION No apparent airway obstruction or restriction was observed. Forced expiratory spirograms are normal. Spirograms are good quality and plateau normally. The respiratory flow volume loop is normal. Spirometry testing is within normal limits. [facility] Incoming Cardiology Results From [employer] - 03/27/2020 10:50 AM EDT Name: KARNE KEARNS PatientID: [id number] Gender: Male Birthdate: 1940 Study Date: 03/25/2020 10:15:29 Age: 79 Race: White or Height: 70.0 in, 177.8 cm Weight: 182.0 lbs, 82.7 kg Smoke Status: Never Pack Years: Tbco Prod: Cigarettes Ordering Physician: [id number] Interpreting Physician: [id number] Assistant Manager Quality Management: SREEDHAR Testing Location: [facility] Diagnosis: Pre op Spirometry Units Pred PreDrug Pre%Pred Post Post%Pred %Change FVC L,btps 4.03 3.28 81. FEV1 L,btps 2.87 2.49 87. FEV1/FVC (%) % 72. 76. 106. FAA20-13% L/s 1.97 2.05 104. FEFmax L/s 7.23 6.87 95. MVV in,btps 108.80 Lung Volumes (Body Box) Units Pred PreDrug Pre%Pred TLC L,btps 6.89 VC L,btps 4.03 IC L,btps 3.10 FRC L,btps 3.79 ERV L,btps 0.93 RV L,btps 2.86 RV/TLC (%) % 42. VTG L,btps RAW H2O/L/s 1.17 SGaw cmH2O/L 0.23 Diffusion (DLCO) Units Pred PreDrug Pre%Pred DLCO ml/min/mmHg,stpd 27.24 DLCOHb ml/min/mmHg,stpd 27.24 VAsb L,btps 6.72 D/VAsb ml/min/mmHg/L,stpd 4.05 D/VAsbHb ml/min/mmHg/L,stpd 4.05 VInsp L Hgb g/dl COHb % Lung Mechanics Units Pred PreDrug Pre%Pred PImax /MIP cmH2O -59.60 PEmax /MEP cmH2O 107.20 PREMIUM SERVICE REPRESENTATIVE NOTES 01759- EARNESTINE Spirometry best effort, met acceptability and repeatability guidelines. Sitting upright at side of bed. Tests to perform: RT17 - BEDSIDE SPIROMETRY PHYSICIAN INTERPRETATION No apparent airway obstruction or restriction was observed. Forced expiratory spirograms are normal. Spirograms are good quality and plateau normally. The respiratory flow volume loop is normal. Spirometry testing is within normal limits. [place], [place] CBC auto differentialon 10- Absolute Baso # 0.0 10*3/uL 0 - 0.2 10*3/uL [place] Absolute Neut # 3.9 10*3/uL 1.8 - 7 10*3/uL [place] Basophils/100 WBC (Bld) 0.6 % 0 - 2 % [place] Eosinophils (Bld) [#/Vol] 0.1 10*3/uL 0 - 0.5 10*3/uL [place] Eosinophils/100 WBC (Bld) 1.0 % 1 - 6 % [place] Erythrocyte distribution width (RBC) [Ratio] 14.0 % 11.5 - 14.5 % [place] Granulocytes/100 WBC (Bld) 63.4 % 40 - 80 % [place] Hematocrit (Bld) [Volume fraction] 41.7 % 40 - 52 % [place] Hemoglobin (Bld) [Mass/Vol] 14.2 g/dL 13 - 18 g/dL [place] Lymphocytes (Bld) [#/Vol] 1.6 10*3/uL 1 - 4.3 10*3/uL [place] Lymphocytes/100 WBC (Bld) 26.3 % 20 - 40 % [place] MCH (RBC) [Entitic mass] 29.9 pg 26 - 34 pg [place] MCHC (RBC) [Mass/Vol] 34.1 % 32 - 36 % [place] MCV (RBC) [Entitic vol] 87.6 fL 80 - 98 fL [place] Monocytes (Bld) [#/Vol] 0.5 10*3/uL 0 - 0.8 10*3/uL [place] Monocytes/100 WBC (Bld) 8.7 % 2 - 10 % [place] Platelet mean volume (Bld) [Entitic vol] 9.0 fL 7.4 - 10.4 fL [place] Platelets (Bld) [#/Vol] 141 10*3/uL 140 - 440 10*3/uL [place] RBC (Bld) [#/Vol] 4.77 10*6/uL 4.4 - 5.9 10*6/uL [place] WBC (Bld) [#/Vol] 6.1 10*3/uL 3.6 - 10.7 10*3/uL [place] Test Performed by [facility], [address] [place], [place] [id number] [place] [address] Complete Urinalysison 2019 Appearance (U) Clear Normal Clear [facility] Comment on above: Result Comment: . Performed By: #### C UA2 ####[address], [place] Bilirubin,Urine Negative Normal Negative [facility] Comment on above: Result Comment: . Performed By: #### C UA2 ####[address] [place], [place] Color (U) Light-Yellow Normal Lt. Yellow [facility] Comment on above: Result Comment: . Performed By: #### C UA2 ####[address] [place], [place] Glucose Ql (U) Normal Normal Normal (<70) [facility] Comment on above: Result Comment: . Performed By: #### C UA2 ####[address] [facility] [place], [place] Ketone,Urine Negative Normal Negative [facility] Comment on above: Result Comment: . Performed By: #### C UA2 ####[address] [address] [facility] [place], [place] Leukocytes,Urine Negative Normal Negative [facility] Comment on above: Result Comment: . Performed By: #### C UA2 ####[address] [place], [place] Nitrites,Urine Negative Normal Negative [facility] Comment on above: Result Comment: . Performed By: #### C UA2 ####[place] [address] [address] [place], [place] Occult Blood,Urine Negative Normal Negative [facility] Comment on above: Result Comment: . Performed By: #### C UA2 ####[address] [address] [address] [place], [place] pH,Urine 5.0 Normal 5.0-8.0 [facility] Comment on above: Result Comment: . Performed By: #### C UA2 ####[address] [place], [place] Specific [place],Urine 1.010 Normal 1.005 - 1.030 [facility] Comment on above: Result Comment: . Performed By: #### C UA2 ####[address] [place], [place] Total Protein,Urine Negative Normal Negative [facility] Comment on above: Result Comment: . Performed By: #### C UA2 ####[address] [place], [place] Urobilinogen,Urine Normal Normal Normal (0-1) [facility] Comment on above: Result Comment: . Performed By: #### C UA2 ####[address] [address] E Antigenon 03-25-2020 E Antigen E Antigen : NEG Normal [facility] Comment on above: Performed By: #### S DP, CR5, LRC, PH5 ####[address] [address]#### FYA-A, ABID, E-A, LC-A ####[facility]#### TSGL ####[id number] [place] [address]#### PRP ####[address] [address] E Antigen Typingon 0 Test Performed by [facility], [facility] [place], [place] [id number] [place] [address], [place] Fya ([place]) Antigenon 2019 Fya ([place]) Antigen Fya ([place]) Antigen : NEG Normal [facility] Comment on above: Performed By: #### S DP, CR5, LRC, PH5 ####[address] [address]#### FYA-A, ABID, E-A, LC-A ####[facility]#### TSGL ####[address] [place] [address]#### PRP ####[address] [address] Hemoglobin A1Con 03-25-2020 Glucose [Mass/Vol] 108 mg/dL Normal [facility] Comment on above: Performed By: #### A PTT, MG3, HEMDF, HA1C2, PT ####[address] [address] HbA1c (Bld) [Mass fraction] 5.4 % Normal 4.0-6.0 [facility] Comment on above: Result Comment: --Hg bA1C levels may not be accurate in patients who haverenal disease, received recent blood transfusions, are anemic,or who have dyshemoglobinemia. Performed By: #### A PTT, MG3, HEMDF, HA1C2, PT ####[facility] [address] [place], [place] Hemoglobin A1con 03-25-2020 eAG 108 mg/dL [place], [place] HbA1c (Bld) [Mass fraction] 5.4 % 4 - 6 % [place], [place] Comment on above: --HgbA1C levels may not be accurate in patients who have renal disease, received recent blood transfusions, are anemic, or who have dyshemoglobinemia. Hemogram w/ Autodiffon 03-25 Abs Baso Cnt 0.0 10*3/uL Normal 0.0-0.2 [facility] Comment on above: Performed By: #### A PTT, MG3, HEMDF, HA1C2, PT ####[facility] [address] Abs Neutrophile Cnt 3.9 10*3/uL Normal 1.8-7.0 [facility] Comment on above: Performed By: #### A PTT, MG3, HEMDF, HA1C2, PT ####[facility] [place] [id number] [place], [place] Basophils/100 WBC (Bld) 0.6 % Normal 0.0-2.0 [facility] Comment on above: Performed By: #### A PTT, MG3, HEMDF, HA1C2, PT ####[facility] [place] [address] [place], [place] Eosinophils (Bld) [#/Vol] 0.1 10*3/uL Normal 0.0-0.5 [facility] Comment on above: Performed By: #### A PTT, MG3, HEMDF, HA1C2, PT ####[facility] [place] [address] [place], [place] Eosinophils/100 WBC (Bld) 1.0 % Normal 1.0-6.0 [facility] Comment on above: Performed By: #### A PTT, MG3, HEMDF, HA1C2, PT ####[address] [place], [place] Erythrocyte distribution width (RBC) [Ratio] 14.0 % Normal 11.5-14.5 [facility] Comment on above: Performed By: #### A PTT, MG3, HEMDF, HA1C2, PT ####[address] [place], [place] Granulocytes/100 WBC (Bld) 63.4 % Normal 40.0-80.0 [facility] Comment on above: Performed By: #### A PTT, MG3, HEMDF, HA1C2, PT ####[address] [place], [place] Hematocrit (Bld) [Volume fraction] 41.7 % Normal 40.0-52.0 [facility] Comment on above: Performed By: #### A PTT, MG3, HEMDF, HA1C2, PT ####[address] [place], [place] Hemoglobin (Bld) [Mass/Vol] 14.2 g/dL Normal 13.0-18.0 [facility] Comment on above: Performed By: #### A PTT, MG3, HEMDF, HA1C2, PT ####[address] [place] Lymphocytes (Bld) [#/Vol] 1.6 10*3/uL Normal 1.0-4.3 [facility] Comment on above: Performed By: #### A PTT, MG3, HEMDF, HA1C2, PT ####[address] [place], [place] Lymphocytes/100 WBC (Bld) 26.3 % Normal 20.0-40.0 [facility] Comment on above: Performed By: #### A PTT, MG3, HEMDF, HA1C2, PT ####[address] [place], [place] MCH (RBC) [Entitic mass] 29.9 pg Normal 26.0-34.0 [facility] Comment on above: Performed By: #### A PTT, MG3, HEMDF, HA1C2, PT ####[address] [place] MCHC 34.1 % Normal 32.0-36.0 [facility] Comment on above: Performed By: #### A PTT, MG3, HEMDF, HA1C2, PT ####[address] [place] MCV (RBC) [Entitic vol] 87.6 fL Normal 80.0-98.0 [facility] Comment on above: Performed By: #### A PTT, MG3, HEMDF, HA1C2, PT ####[address] [place], [place] Monocytes (Bld) [#/Vol] 0.5 10*3/uL Normal 0.0-0.8 [facility] Comment on above: Performed By: #### A PTT, MG3, HEMDF, HA1C2, PT ####[address] Monocytes/100 WBC (Bld) 8.7 % Normal 2.0-10.0 [facility] Comment on above: Performed By: #### A PTT, MG3, HEMDF, HA1C2, PT ####[address] . [place], [place] Platelet mean volume (Bld) [Entitic vol] 9.0 fL Normal 7.4-10.4 [facility] Comment on above: Performed By: #### A PTT, MG3, HEMDF, HA1C2, PT ####[address] . [place], [place] Platelets (Bld) [#/Vol] 141 10*3/uL Normal 140-440 [facility] Comment on above: Performed By: #### A PTT, MG3, HEMDF, HA1C2, PT ####[address] [place], [place] RBC (Bld) [#/Vol] 4.77 10*6/uL Normal 4.40-5.90 [facility] Comment on above: Performed By: #### A PTT, MG3, HEMDF, HA1C2, PT ####[address] WBC (Bld) [#/Vol] 6.1 10*3/uL Normal 3.6-10.7 [facility] Comment on above: Performed By: #### A PTT, MG3, HEMDF, HA1C2, PT ####[address] [address] Little c Antigenon 0 Little c Antigen Little c Antigen : POS Normal [facility] Comment on above: Performed By: #### S DP, CR5, LRC, PH5 ####[address] [address]#### FYA-A, ABID, E-A, LC-A ####[facility]#### TSGL ####[id number] [place] [address]#### PRP ####[address] [address] Magnesiumon 03-25-2020 Magnesium [Mass/Vol] 2.0 mg/dL Normal 1.6-2.3 [facility] Comment on above: Performed By: #### A PTT, MG3, HEMDF, HA1C2, PT ####[address] [address] Magnesium [Mass/Vol] 2.0 mg/dL 1.6 - 2 .3 mg/dL [facility], [place] Metabolic Panelon 03-25-2020 Sodium [Moles/Vol] Negative [facility] [place] Sodium [Moles/Vol] Positive [facility] Otheron 03-25-2020 Test Performed by [facility], [address] [place] [id number] [place] [address] [place]- [place] Test Performed by [address] [address] [facility] Test Performed by [address] [place] [address] [place], [place] Prothrombin Timeon 0 INR 1.1 Normal 0.9-1.[address] [facility] [place] [facility] Comment on above: Result Comment: Ty mmended Anticoagulant Therapy: SEE BELOW----- INR of 2.0 - 3.0 : - Prophylaxis of Venous Thrombosis (high-risk surgery) - Treatment of Venous Thrombosis - Treatment of Pulmonary Embolism (Includes tissue heart valves, Acute Myocardial Infarction to prevent systemic embolism, Valvular Heart Disease, and Atrial Fibrillation)----- INR of 2.5 - 3.5 : - Mechanical Prosthetic Valves (high risk) - If oral anticoagulant therapy is used to prevent Myocardial Infarction Performed By: #### A PTT, MG3, HEMDF, HA1C2, PT ####[address] [place] [address] PT Coag (PPP) [Time] 11.4 s Normal 9.0-12.0 [facility] [place] [facility] Comment on above: Result Comment: . Performed By: #### A PTT, MG3, HEMDF, HA1C2, PT ####[facility] [place] [address] [place] [address] Protime-INRon 03-25-2020 INR Coag (PPP) [Relative time] 1.1 {INR} [place], [place] Comment on above: Recommended Anticoag ulant Therapy: SEE BELOW ----- INR of 2.0 - 3.0 : - Prophylaxis of Venous Thrombosis (high-risk surgery) - Treatment of Venous Thrombosis - Treatment of Pulmonary Embolism (Includes tissue heart valves, Acute Myocardial Infarction to prevent systemic embolism, Valvular Heart Disease, and Atrial Fibrillation) ----- INR of 2.5 - 3.5 : - Mechanical Prosthetic Valves (high risk) - If oral anticoagulant therapy is used to prevent Myocardial Infarction PT Coag (PPP) [Time] 11.4 s 9 - 12 s [place], [place] Comment on above: . TS GELon 03-25-2020 TS GEL ABO Group: A Rh, Gel: POS Antibody Screen Gel: POS Normal [facility] [place] [facility] Comment on above: Performed By: #### S DP, CR5, LRC, PH5 ####[address] [place] [address]#### FYA-A, ABID, E-A, LC-A ####[facility]#### TSGL ####[address] [place], [place] [address]#### PRP ####[address] [address] TYPE AND SCREENon 03-25-2020 Sodium [Moles/Vol] A [place], [place] Test Performed by [facility], [address] [place] [id number] [place] [address] Urinalysison 03-25-2020 Appearance (U) Clear Clear NA [place] Comment on above: . Bilirubin Urine Negative Negative mg/dL [place] Comment on above: . Color (U) Light-Yellow Lt. Yellow NA [place] Comment on above: . Glucose, Ur Normal Normal (<70) mg/dL [place] Comment on above: . Ketones Ql (U) Negative Negative mg/dL [place], [place] Comment on above: . LEUKOCYTES, UA Negative Negative Dangelo/uL [place] Comment on above: . Nitrite, Urine Negative Negative NA [place] Comment on above: . Occult Blood,Urine Negative Negative mg/dL [place] Comment on above: . pH (U) 5.0 [pH] [place] Comment on above: . Protein (U) [Mass/Vol] Negative Negative mg/dL [place] Comment on above: . Specific [place], Urine 1.010 [place], [place] Comment on above: . Urobilinogen, Urine Normal Normal ( 0-1) mg/dL [place] Comment on above: . Test Performed by [facility], [address] [place] [address] Basic Metabolic Panelon Anion Gap 8 Normal [facility] Comment on above: Performed By: #### H EMOG, BMP3 ####[address] [address] Calcium [Mass/Vol] 8.6 mg/dL Normal 8.4-10.4 [facility] Comment on above: Performed By: #### H VIDAL BMP3 ####[facility] [address] [place], [place] CO2 [Moles/Vol] 24 mmol/L Normal 22-30 [facility] Comment on above: Performed By: #### H VIDAL BMP3 ####[facility] [place] [address] [place], [place] Glucose [Mass/Vol] 99 mg/dL Normal 70-100 [facility] Comment on above: Performed By: #### Karley DRAKE BMP3 ####[facility] [place] [address] [place], [place] Urea nitrogen [Mass/Vol] 25 mg/dL High 7-20 [facility] Comment on above: Performed By: #### Karley DRAKE BMP3 ####[facility] [place] [address] [place], [place] Creatinine [Mass/Vol] 1.15 mg/dL Normal 0.52-1.25 [facility] Comment on above: Performed By: #### Karley DRAKE BMP3 ####[facility] [place] [address] [place], [place] GFR/1.73 sq M.predicted among blacks MDRD (S/P/Bld) [Vol rate/Area] 68.8 mL/min/{1.73_m2} Normal >60 [facility] Comment on above: Performed By: #### Karley DRAKE BMP3 ####[facility] [place] [address] [place], [place] GFR/1.73 sq M.predicted among non-blacks MDRD (S/P/Bld) [Vol rate/Area] 59.4 mL/min/{1.73_m2} Abnormal >60 [facility] Comment on above: Result Comment: KDIG O guidelines provide the following GFR categories:Stage GFR(ml/min/1.73 m2) TermsG1 >=90 Normal or highG2 60-89 Mildly decreased*G3a 45-59 Mildly to moderately sbybcpmowW2g 30-44 Moderately to severely decreasedG4 15-29 Severely decreasedG5 <15 Kidney failure*Relative to young adult level.In the absence of evidence of kidney damage, neither GFRcategory G1 nor G2 fulfill the criteria for CKD.The CKD-EPI equation is validated in individuals 18 yearsof age and older. Currently the best equation forestimating glomerular filtration rate (GFR) from serumcreatinine in children is the Bedside Pelletier equation.It is less accurate in patients with extremes of musclemass, restriction of dietary protein, ingestion of creatine,extra-renal metabolism of creatinine, or treatment withmedications that affect renal tubular creatinine secretion. Performed By: #### H VIDAL BMP3 ####[address] [place], [place] Chloride [Moles/Vol] 108 mmol/L High 98-107 [facility] Comment on above: Performed By: #### H VIDAL BMP3 ####[address] [place], [place] Potassium [Moles/Vol] 4.4 mmol/L Normal 3.5-5.1 [facility] Comment on above: Performed By: #### H [facility] ASSOCIATIONNarcisa BMP3 ####[address] [place], [place] Sodium [Moles/Vol] 140 mmol/L Normal 135-145 [facility] Comment on above: Performed By: #### H [employer]Narcisa BMP3 ####[address] [place], [place] Anion gap [Moles/Vol] 8 mmol/L [place], [place] Calcium [Mass/Vol] 8.6 mg/dL 8.4 - 10. 4 mg/dL [place] Chloride [Moles/Vol] 108 mmol/L High 98 - 10 7 mmol/L [place] CO2 [Moles/Vol] 24 mmol/L 22 - 30 mmol/L [place] Creatinine [Mass/Vol] 1.15 mg/dL 0.52 - 1.25 mg/dL [place] EGFR IF NonAfrican [place]ian 59.4 mL/min Abnormal >60 [place] Comment on above: KDIGO guidelines pro vide the following GFR categories: Stage GFR(ml/min/1.73 m2) Terms G1 >=90 Normal or high G2 60-89 Mildly decreased* G3a 45-59 Mildly to moderately decreased G3b 30-44 Moderately to severely decreased G4 15-29 Severely decreased G5 <15 Kidney failure *Relative to young adult level. In the absence of evidence of kidney damage, neither GFR category G1 nor G2 fulfill the criteria for CKD. The CKD-EPI equation is validated in individuals 18 years of age and older. Currently the best equation for estimating glomerular filtration rate (GFR) from serum creatinine in children is the Bedside Pelletier equation. It is less accurate in patients with extremes of muscle mass, restriction of dietary protein, ingestion of creatine, extra-renal metabolism of creatinine, or treatment with medications that affect renal tubular creatinine secretion. GFR/1.73 sq M predicted among blacks MDRD (S/P/Bld) [Vol rate/Area] 68.8 mL/min/{1.73_m2} >60 [place], [place] Glucose [Mass/Vol] 99 mg/dL 70 - 100 mg/dL [place] Interpretation and review of laboratory results Abnormal [place] Potassium [Moles/Vol] 4.4 mmol/L 3.5 - 5.1 mmol/L [place] Sodium [Moles/Vol] 140 mmol/L 135 - 145 mmol/L [place] Urea nitrogen [Mass/Vol] 25 mg/dL High 7 - 20 mg/dL [place] Test Performed by [place] [address] [place] [address] [place], [place] CBCon 03-23-2020 Interpretation and review of laboratory results Abnormal [place] MCHC (RBC) [Mass/Vol] 33.6 % 32 - 36 % [place], [place] Test Performed by [place] [address] [place] [address] [place], [place] CR Chest Portableon 03-23-20 20 CR Chest Portable Normal [facility] ECHO Complete 2D W Doppler W Coloron 03-23-2020 Left ventricular Ejection fraction 71 [place] LVEF MODALITY ECHO [place] Prabhu, [facility] Incoming Cardiology Results From Lucretia/Amos - 03/23/2020 2:09 PM EDT TRANSTHORACIC ECHOCARDIOGRAM PATIENT: Karen Kearns STUDY DATE: 03/23/2020 : 1940 AGE: 79 HT/WT: 177.8 cm (70 82.6 kg (181.6 in) lb) GENDER: M BP: 132 / 70 LOCATION: [facility] PATIENT Inpatient main STATUS: *ORDERING PHYSICIAN: * Estela Armendariz *READING PHYSICIAN: * Silviano *SWEATBAND MAKER: * Pastora House RDCS, MD AE -- INDICATIONS: ASSES VALVES PRIOR TO POSSIBLE CABG. -- CONCLUSIONS SUMMARY: 1. Left ventricle: Systolic function is normal by the biplane method of disks. The estimated ejection fraction is 71%. There are no regional wall motion abnormalities. 2. Right ventricle: The cavity size is normal. Systolic function is normal. 3. No significant valve disease. RECOMMENDATIONS: Consider an abdominal ultrasound to better assess large hepatic cysts noted in the subcostal views. -- STUDY DATA: Complete transthoracic echocardiogram. Procedure: Image quality was fair. M-mode, complete 2D, complete spectral Doppler, and color flow Doppler images were acquired and archived for permanent storage and are available for subsequent review. Study status: Routine. Patient status: Inpatient. -- FINDINGS LEFT VENTRICLE: Average LV global longitudinal strain is -20. The cavity size is normal. Wall thickness is normal. Systolic function is normal by the biplane method of disks. The estimated ejection fraction is 71%. There are no regional wall motion abnormalities. RIGHT VENTRICLE: The cavity size is normal. Systolic function is normal. LEFT ATRIUM: The atrium is normal in size. RIGHT ATRIUM: The atrium is normal in size. MITRAL VALVE: Structurally normal valve. Leaflet separation is normal. Doppler: Transvalvular velocity is within the normal range. There is no evidence for stenosis. There is trivial, less than 1+ regurgitation. The peak diastolic gradient is 2 mm Hg. AORTIC VALVE: Structurally normal valve. Trileaflet. Cusp separation is normal. Doppler: Transvalvular velocity is within the normal range. There is no stenosis. There is no significant regurgitation. The peak systolic gradient is 7 mm Hg. The peak systolic velocity is 1.3 m/sec. TRICUSPID VALVE: Structurally normal valve. Leaflet separation is normal. Doppler: Transvalvular velocity is within the normal range. There is no evidence for stenosis. PULMONIC VALVE: Structurally normal valve. Cusp separation is normal. Doppler: Transvalvular velocity is within the normal range. There is trivial, less than 1+ regurgitation. AORTA: Aortic root: The aortic root is normal in size. Ascending aorta: The ascending aorta is normal in size. PERICARDIUM: There is no pericardial effusion. -- Measurements Value Reference Ascending aorta ID, A-P, S 3.0 cm Ascending aorta ID/bsa, A-P, S 1.5 cm/m^2 Left ventricle Value Reference GLS, 2D 20.36 % LV ID, ED 4.6 cm 4.2 - 5.8 LV ID, ES (L) 2.3 cm 2.5 - 4.0 LV ID/bsa, ED 2.3 cm/m^2 2.2 - 3.0 LV ID/bsa, ES (L) 1.2 cm/m^2 1.3 - 2.1 LV PW thickness, ED (H) 1.2 cm 0.6 - 1.0 LV PW/LV ID ratio, ED 0.27 LV wall mass (H) 204 g 96 - 200 LV wall mass/bsa 101 g/m^2 50 - 102 Stroke volume/bsa, 1-p A2C 20.4 ml/m^2 LV end-diastolic volume, 1-p A4C 83 ml 69 - 185 LV end-systolic volume, 1-p A4C 25 ml 22 - 78 LV end-diastolic volume, 2-p 74 ml 62 - 150 LV end-systolic volume, 2-p 21 ml 21 - 61 LV ejection fraction, 2-p 71 % 52 - 72 LV E/e', lateral 9.5 LV E/e', medial 13.2 LV E/e', average 11 Ventricular septum Value Reference IVS thickness, ED (H) 1.2 cm 0.6 - 1.0 LVOT Value Reference LVOT ID, A-P 2.2 cm LVOT mean velocity, S 1 m/sec LVOT peak gradient, S 7 mm Hg Stroke volume (SV), LVOT DP 97 ml Stroke index (SV/bsa), LVOT DP 48 ml/m^2 Aortic valve Value Reference Aortic valve peak velocity, S 1.3 m/sec Aortic peak gradient, S 7 mm Hg Left atrium Value Reference LA volume/bsa, ES, 2-p 29 ml/m^2 16 - 34 Mitral valve Value Reference Mitral E-wave peak velocity 0.7 m/sec Mitral A-wave peak velocity 0.9 m/sec Mitral deceleration time 226 ms Mitral peak gradient, D 2 mm Hg Mitral E/A ratio, peak 0.8 Right atrium Value Reference RA area, ES, A4C 13 cm^2 10 - 18 Right ventricle Value Reference RV ID, minor axis, ED, A4C base 3.3 cm 2.5 - 4.1 RV ID, minor axis, ED, A4C mid 3.3 cm 1.9 - 3.5 TAPSE, 2D 2.5 cm 1.7 - 3.1 RV s', lateral 12.9 cm/sec 6.0 - 13.4 Legend: (L) and (H) marcos values outside specified reference range. Electronically signed by Silviano Guillory MD 03/23/2020 14:08 Prior Signatures: [facility], [place] TRANSTHORACIC ECHOCARDIOGRAM PATIENT: Karen Kearns STUDY DATE: 03/23/2020 : 1940 AGE: 79 HT/WT: 177.8 cm (70 82.6 kg (181.6 in) lb) GENDER: M BP: 132 / 70 LOCATION: [facility] PATIENT Inpatient main STATUS: *ORDERING PHYSICIAN: * Estela Armendariz *READING PHYSICIAN: * Silviano *SWEATBAND MAKER: * Pastora House RDCS, MD AE -- INDICATIONS: ASSES VALVES PRIOR TO POSSIBLE CABG. -- CONCLUSIONS SUMMARY: 1. Left ventricle: Systolic function is normal by the biplane method of disks. The estimated ejection fraction is 71%. There are no regional wall motion abnormalities. 2. Right ventricle: The cavity size is normal. Systolic function is normal. 3. No significant valve disease. RECOMMENDATIONS: Consider an abdominal ultrasound to better assess large hepatic cysts noted in the subcostal views. -- STUDY DATA: Complete transthoracic echocardiogram. Procedure: Image quality was fair. M-mode, complete 2D, complete spectral Doppler, and color flow Doppler images were acquired and archived for permanent storage and are available for subsequent review. Study status: Routine. Patient status: Inpatient. -- FINDINGS LEFT VENTRICLE: Average LV global longitudinal strain is -20. The cavity size is normal. Wall thickness is normal. Systolic function is normal by the biplane method of disks. The estimated ejection fraction is 71%. There are no regional wall motion abnormalities. RIGHT VENTRICLE: The cavity size is normal. Systolic function is normal. LEFT ATRIUM: The atrium is normal in size. RIGHT ATRIUM: The atrium is normal in size. MITRAL VALVE: Structurally normal valve. Leaflet separation is normal. Doppler: Transvalvular velocity is within the normal range. There is no evidence for stenosis. There is trivial, less than 1+ regurgitation. The peak diastolic gradient is 2 mm Hg. AORTIC VALVE: Structurally normal valve. Trileaflet. Cusp separation is normal. Doppler: Transvalvular velocity is within the normal range. There is no stenosis. There is no significant regurgitation. The peak systolic gradient is 7 mm Hg. The peak systolic velocity is 1.3 m/sec. TRICUSPID VALVE: Structurally normal valve. Leaflet separation is normal. Doppler: Transvalvular velocity is within the normal range. There is no evidence for stenosis. PULMONIC VALVE: Structurally normal valve. Cusp separation is normal. Doppler: Transvalvular velocity is within the normal range. There is trivial, less than 1+ regurgitation. AORTA: Aortic root: The aortic root is normal in size. Ascending aorta: The ascending aorta is normal in size. PERICARDIUM: There is no pericardial effusion. -- Measurements Value Reference Ascending aorta ID, A-P, S 3.0 cm Ascending aorta ID/bsa, A-P, S 1.5 cm/m^2 Left ventricle Value Reference GLS, 2D 20.36 % LV ID, ED 4.6 cm 4.2 - 5.8 LV ID, ES (L) 2.3 cm 2.5 - 4.0 LV ID/bsa, ED 2.3 cm/m^2 2.2 - 3.0 LV ID/bsa, ES (L) 1.2 cm/m^2 1.3 - 2.1 LV PW thickness, ED (H) 1.2 cm 0.6 - 1.0 LV PW/LV ID ratio, ED 0.27 LV wall mass (H) 204 g 96 - 200 LV wall mass/bsa 101 g/m^2 50 - 102 Stroke volume/bsa, 1-p A2C 20.4 ml/m^2 LV end-diastolic volume, 1-p A4C 83 ml 69 - 185 LV end-systolic volume, 1-p A4C 25 ml 22 - 78 LV end-diastolic volume, 2-p 74 ml 62 - 150 LV end-systolic volume, 2-p 21 ml 21 - 61 LV ejection fraction, 2-p 71 % 52 - 72 LV E/e', lateral 9.5 LV E/e', medial 13.2 LV E/e', average 11 Ventricular septum Value Reference IVS thickness, ED (H) 1.2 cm 0.6 - 1.0 LVOT Value Reference LVOT ID, A-P 2.2 cm LVOT mean velocity, S 1 m/sec LVOT peak gradient, S 7 mm Hg Stroke volume (SV), LVOT DP 97 ml Stroke index (SV/bsa), LVOT DP 48 ml/m^2 Aortic valve Value Reference Aortic valve peak velocity, S 1.3 m/sec Aortic peak gradient, S 7 mm Hg Left atrium Value Reference LA volume/bsa, ES, 2-p 29 ml/m^2 16 - 34 Mitral valve Value Reference Mitral E-wave peak velocity 0.7 m/sec Mitral A-wave peak velocity 0.9 m/sec Mitral deceleration time 226 ms Mitral peak gradient, D 2 mm Hg Mitral E/A ratio, peak 0.8 Right atrium Value Reference RA area, ES, A4C 13 cm^2 10 - 18 Right ventricle Value Reference RV ID, minor axis, ED, A4C base 3.3 cm 2.5 - 4.1 RV ID, minor axis, ED, A4C mid 3.3 cm 1.9 - 3.5 TAPSE, 2D 2.5 cm 1.7 - 3.1 RV s', lateral 12.9 cm/sec 6.0 - 13.4 Legend: (L) and (H) marcos values outside specified reference range. Electronically signed by Silviano Guillory MD 03/23/2020 14:08 Prior Signatures: [place], [place] EKG 12 [place] 03-23-2020 Prabhu, 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 [address] [facility] Test Date: 2020-03-22 Pat Name: Karen Kearns Department: [facility] Room: 139 Gender: M Assistant Manager Quality Management: PIERO : 1940 Requested By: ESTELA ARMENDARIZ Order Number: [id number] Reading : Harsh Zepeda Measurements Intervals [place] Rate: 65 P: 17 VT: 145 QRS: 81 QRSD: 88 T: 10 QT: 386 QTc: 402 Interpretive Statements Sinus rhythm Borderline right axis deviation Electronically Signed On 03-23-2020 16:01:39 EDT by Harsh Zepeda [place], [place] Echo Complete w/wo Contrasto n 03-23-2020 Echo Complete w/wo Contrast Normal [facility] Hemogramon 03-23-2020 MCHC 33.6 % Normal 32.0-36.0 [facility] Comment on above: Performed By: #### H VIDAL BMP3 ####[facility] [address] [place] [address] Erythrocyte distribution width (RBC) [Ratio] 14.1 % Normal 11.5-14.5 [place], [place] Comment on above: Performed By: #### H VIDAL BMP3 ####[facility] [address] [place] [address] Hematocrit (Bld) [Volume fraction] 39.5 % Low 40.0-52.0 [place], [place] Comment on above: Performed By: #### Karley DRAKE BMP3 ####[address] [place], [place] Hemoglobin (Bld) [Mass/Vol] 13.3 g/dL Normal 13.0-18.0 [place], [place] Comment on above: Performed By: #### Karley DRAKE BMP3 ####[address] [place], [place] MCH (RBC) [Entitic mass] 29.8 pg Normal 26.0-34.0 [place], [place] Comment on above: Performed By: #### Karley DRAKE BMP3 ####[address] [place], [place] MCV (RBC) [Entitic vol] 88.6 fL Normal 80.0-98.0 [place], [place] Comment on above: Performed By: #### Karley DRAKE BMP3 ####[address] [place], [place] Platelet mean volume (Bld) [Entitic vol] 9.4 fL Normal 7.4-10.4 [place], [place] Comment on above: Performed By: #### Karley DRAKE BMP3 ####[address] Platelets (Bld) [#/Vol] 121 10*3/uL Low 140-440 [place], [place] Comment on above: Performed By: #### Karley DRAKE BMP3 ####[address] [place], [place] RBC (Bld) [#/Vol] 4.46 10*6/uL Normal 4.40-5.90 [place], [place] Comment on above: Performed By: #### Karley DRAKE, BMP3 ####[address] WBC (Bld) [#/Vol] 6.9 10*3/uL Normal 3.6-10.7 [facility]- [place], [place] Comment on above: Performed By: #### H THEODORA DRAKE3 ####[facility] [address] [place] [address] VL PRE OP VEIN MAPPINGon Prabhu, [facility] Cardiology Results From Lucretia/Amos - 03/23/2020 7:30 PM EDT [facility] -- Bilateral LE Vein Mapping For Bypass Report Ordering Physician: Estela Armendariz [employer] Worker: Katherine Lei RDMS, RVT Interpreting Physician: Elizabeth Young -- Location: [facility] -- Indications: Pre-op bypass. -- Conclusions 1. Right greater saphenous vein patent with measurements below 2. Left greater saphenous vein patent with measurements below -- History: Risk factors: Age over 65 years. -- Study data: Bilateral lower extremity vein mapping. Grayscale 2D imaging. Location: Bedside. Procedure: A vascular evaluation was performed with the patient in the supine position. Images were obtained using a Oversee E9 vascular ultrasound machine. -- Findings Systemic veins: Patent bilateral greater saphenous veins. -- Vein mapping: + +----- -------+ +Location +Diameter AP*+ + +----- -------+ +R saph-femoral junction - prox. (thigh)+4.96 mm + + +----- -------+ +R GSV - prox. (thigh) +3.47 mm + + +----- -------+ +R GSV - mid (thigh) +2.90 mm + + +----- -------+ +R GSV - distal (thigh) +2.95 mm + + +----- -------+ +R GSV - distal (knee) +2.07 mm + + +----- -------+ +R GSV - prox. (calf) +1.72 mm + + +----- -------+ +R GSV - mid (calf) +1.92 mm + + +----- -------+ +R GSV - distal (calf) +1.92 mm + + +----- -------+ +L saph-femoral junction - prox. (thigh)+6.14 mm + + +----- -------+ +L GSV - prox. (thigh) +3.62 mm + + +----- -------+ +L GSV - mid (thigh) +2.96 mm + + +----- -------+ +L GSV - distal (thigh) +3.42 mm + + +----- -------+ +L GSV - distal (knee) +2.59 mm + + +----- -------+ +L GSV - prox. (calf) +2.65 mm + + +----- -------+ +L GSV - mid (calf) +2.44 mm + + +----- -------+ +L GSV - distal (calf) +2.44 mm + + +----- -------+ *Length measurements, e.g. diameters, are expressed in mm Prepared and electronically signed by Elizabeth Young 03/23/2020 19:30 [facility] [place], [place] [facility] -- Bilateral LE Vein Mapping For Bypass Report Ordering Physician: Estela Armendariz [employer] Worker: Katherine Lei RDMS, RVT Interpreting Physician: Elizabeth Young -- Location: [facility] -- Indications: Pre-op bypass. -- Conclusions 1. Right greater saphenous vein patent with measurements below 2. Left greater saphenous vein patent with measurements below -- History: Risk factors: Age over 65 years. -- Study data: Bilateral lower extremity vein mapping. Grayscale 2D imaging. Location: Bedside. Procedure: A vascular evaluation was performed with the patient in the supine position. Images were obtained using a Oversee E9 vascular ultrasound machine. -- Findings Systemic veins: Patent bilateral greater saphenous veins. -- Vein mapping: + +----- -------+ +Location +Diameter AP*+ + +----- -------+ +R saph-femoral junction - prox. (thigh)+4.96 mm + + +----- -------+ +R GSV - prox. (thigh) +3.47 mm + + +----- -------+ +R GSV - mid (thigh) +2.90 mm + + +----- -------+ +R GSV - distal (thigh) +2.95 mm + + +----- -------+ +R GSV - distal (knee) +2.07 mm + + +----- -------+ +R GSV - prox. (calf) +1.72 mm + + +----- -------+ +R GSV - mid (calf) +1.92 mm + + +----- -------+ +R GSV - distal (calf) +1.92 mm + + +----- -------+ +L saph-femoral junction - prox. (thigh)+6.14 mm + + +----- -------+ +L GSV - prox. (thigh) +3.62 mm + + +----- -------+ +L GSV - mid (thigh) +2.96 mm + + +----- -------+ +L GSV - distal (thigh) +3.42 mm + + +----- -------+ +L GSV - distal (knee) +2.59 mm + + +----- -------+ +L GSV - prox. (calf) +2.65 mm + + +----- -------+ +L GSV - mid (calf) +2.44 mm + + +----- -------+ +L GSV - distal (calf) +2.44 mm + + +----- -------+ *Length measurements, e.g. diameters, are expressed in mm Prepared and electronically signed by Elizabeth Young 03/23/2020 19:30 [place], [place] VL Vein Map for Preop Bypass [place] 03-23-2020 VL Vein Map for Preop Bypass Lower Ext Normal [facility] XR CHEST PORTABLEon 03-23-20 20 Prabhu, [facility] Incoming Radiology Results From Radnet - 03/23/2020 7:43 AM EDT Patient Name: KAREN KEARNS ---Diagnostic Radiology--- Exam Date/Time 03/23/2020 06:36:11 EDT Exam CR Chest Portable Ordering Physician HARINDER ARMENDARIZ, ESTELA Brewster Accession Number [id number] CPT4 Codes 66388 () Reason For Exam preoperative evaluation CABG 03/26/20 Report Examination: Portable chest Indication: preoperative evaluation CABG 03/26/20 Comparison: None Findings: There is minimal opacification of the left lung base. There is no focal consolidation, sizable pleural effusion or pneumothorax. The cardiac silhouette and mediastinum are within normal limits. Small to moderate osteophytes of the spine are present at multiple levels. Remote left-sided rib fractures are present with callus. Impression: Subtle infiltrate, atelectasis or scar of the left lung base. Follow-up recommended. Report Dictated on --- Final --- Dictated: 03/23/2020 7:41 am Dictating Physician: MD MCMILLAN KRIKOR Signed Date and Time: 03/23/2020 7:42 am Signed by: MD MCMILLAN KRIKOR Transcribed Date and Time: 03/23/2020 7:41 [place], [place] Patient Name: KAREN KEARNS ---Diagnostic Radiology--- Exam Date/Time 03/23/2020 06:36:11 EDT Exam CR Chest Portable Ordering Physician HARINDER ARMENDARIZ, ESTELA Brewster Accession Number [id number] CPT4 Codes 14641 () Reason For Exam preoperative evaluation CABG 03/26/20 Report Examination: Portable chest Indication: preoperative evaluation CABG 03/26/20 Comparison: None Findings: There is minimal opacification of the left lung base. There is no focal consolidation, sizable pleural effusion or pneumothorax. The cardiac silhouette and mediastinum are within normal limits. Small to moderate osteophytes of the spine are present at multiple levels. Remote left-sided rib fractures are present with callus. Impression: Subtle infiltrate, atelectasis or scar of the left lung base. Follow-up recommended. Report Dictated on --- Final --- Dictated: 03/23/2020 7:41 am Dictating Physician: MD MCMILLAN KRIKOR Signed Date and Time: 03/23/2020 7:42 am Signed by: MD MCMILLAN KRIKOR Transcribed Date and Time: 03/23/2020 7:41 [facility] COVID-19on 03-22-2020 SARS-CoV-2 Not Detected Expected Result: Not Detected _ Real-time, RT-PCR performed on the [employer] System by the [facility]. Negative results do not preclude SARS-CoV-2 infection and should not be used as the sole basis for treatment or other patient management decisions. This assay was developed by [employer] and distributed under an Emergency Use Authorization (EUA) granted by the FDA for the qualitative detection of SARS-CoV-2 nucleic acid. Results were determined from a pool consisting of specimens from additional patients. This test was modified, and its performance characteristics, showing minimal loss of sensitivity, have been validated by the [facility]. Approval is pending review by the U. S. Food and Drug Administration. If symptoms are severe and persist, testing a new specimen may be warranted. Additionally, IgG testing may be considered for patients more than 7-10 days post onset of symptoms. [facility] Test Performed by [facility], [address] [place] [id number] Specimen Source Comment:Nasopharyngeal Swab [facility] Comp Metabolic Panelon 03-22 ALP [Catalytic activity/Vol] 72 U/L Normal 38-126 [facility] Comment on above: Performed By: #### H A1C2, LIPD2, CMP3, TSH5 ####[address] [place], [place] ALT [Catalytic activity/Vol] 19 U/L Normal 0-49 [facility] Comment on above: Result Comment: The ALT test is performed by an updated assay method.Please note that the reference intervals have beenchanged and are now sex specific. Performed By: #### H A1C2, LIPD2, CMP3, TSH5 ####[address] [place], [place] Calcium [Mass/Vol] 9.0 mg/dL Normal 8.4-10.4 [facility] Comment on above: Performed By: #### H A1C2, LIPD2, CMP3, TSH5 ####[address] [place], [place] Glucose [Mass/Vol] 129 mg/dL High 70-100 [facility] Comment on above: Performed By: #### H A1C2, LIPD2, CMP3, TSH5 ####[address] Anion Gap 9 Normal [facility] Comment on above: Performed By: #### H A1C2, LIPD2, CMP3, TSH5 ####[address] [place], [place] AST [Catalytic activity/Vol] 26 U/L Normal 15-46 [facility] Comment on above: Performed By: #### H A1C2, LIPD2, CMP3, TSH5 ####[address] Bilirubin [Mass/Vol] 0.9 mg/dL Normal 0.2-1.3 [facility] Comment on above: Performed By: #### H A1C2, LIPD2, CMP3, TSH5 ####[address] CO2 [Moles/Vol] 24 mmol/L Normal 22-30 [facility] Comment on above: Performed By: #### H A1C2, LIPD2, CMP3, TSH5 ####[address] [place], [place] Creatinine [Mass/Vol] 1.17 mg/dL Normal 0.52-1.25 [facility] Comment on above: Performed By: #### H A1C2, LIPD2, CMP3, TSH5 ####[facility] [place] [address] GFR/1.73 sq M.predicted among blacks MDRD (S/P/Bld) [Vol rate/Area] 67.4 mL/min/{1.73_m2} Normal >60 [facility] Comment on above: Performed By: #### H A1C2, LIPD2, CMP3, TSH5 ####[address] [place], [place] GFR/1.73 sq M.predicted among non-blacks MDRD (S/P/Bld) [Vol rate/Area] 58.2 mL/min/{1.73_m2} Abnormal >60 [facility] Comment on above: Result Comment: KDIG O guidelines provide the following GFR categories:Stage GFR(ml/min/1.73 m2) TermsG1 >=90 Normal or highG2 60-89 Mildly decreased*G3a 45-59 Mildly to moderately oehbabbmbE5q 30-44 Moderately to severely decreasedG4 15-29 Severely decreasedG5 <15 Kidney failure*Relative to young adult level.In the absence of evidence of kidney damage, neither GFRcategory G1 nor G2 fulfill the criteria for CKD.The CKD-EPI equation is validated in individuals 18 yearsof age and older. Currently the best equation forestimating glomerular filtration rate (GFR) from serumcreatinine in children is the Bedside Pelletier equation.It is less accurate in patients with extremes of musclemass, restriction of dietary protein, ingestion of creatine,extra-renal metabolism of creatinine, or treatment withmedications that affect renal tubular creatinine secretion. Performed By: #### H A1C2, LIPD2, CMP3, TSH5 ####[address] [place], [place] Protein [Mass/Vol] 7.2 g/dL Normal 6.3-8.2 [facility] Comment on above: Performed By: #### H A1C2, LIPD2, CMP3, TSH5 ####[address] [place], [place] Urea nitrogen [Mass/Vol] 25 mg/dL High 7-20 [facility] Comment on above: Performed By: #### H A1C2, LIPD2, CMP3, TSH5 ####[facility] [place], [place] Chloride [Moles/Vol] 107 mmol/L Normal 98-107 [facility] Comment on above: Performed By: #### H A1C2, LIPD2, CMP3, TSH5 ####[address] [place], [place] Potassium [Moles/Vol] 4.8 mmol/L Normal 3.5-5.1 [facility] Comment on above: Performed By: #### H A1C2, LIPD2, CMP3, TSH5 ####[address] [place], [place] Sodium [Moles/Vol] 139 mmol/L Normal 135-145 [facility] Comment on above: Performed By: #### H A1C2, LIPD2, CMP3, TSH5 ####[address] [place], [place] Albumin [Mass/Vol] 4.2 g/dL Normal 3.5-5.0 [facility] Comment on above: Performed By: #### H A1C2, LIPD2, CMP3, TSH5 ####[address] [place], [place] Comprehensive Metabolic Pane rafiq 03-22-2020 Albumin [Mass/Vol] 4.2 g/dL 3.5 - 5 g/dL [place], [place] ALP [Catalytic activity/Vol] 72 U/L 38 - 126 U/L [place], [place] ALT [Catalytic activity/Vol] 19 U/L 0 - 49 U/L [place], [place] Comment on above: The ALT test is perf ormed by an updated assay method. Please note that the reference intervals have been changed and are now sex specific. Anion gap [Moles/Vol] 9 mmol/L [place], [place] AST [Catalytic activity/Vol] 26 U/L 15 - 46 U/L [place], [place] Bilirubin Ql (U) 0.9 mg/dL 0.2 - 1.3 mg/dL [place], [place] Calcium [Mass/Vol] 9.0 mg/dL 8.4 - 10. 4 mg/dL [place] Chloride [Moles/Vol] 107 mmol/L 98 - 10 7 mmol/L [place] CO2 [Moles/Vol] 24 mmol/L 22 - 30 mmol/L [place] Creatinine [Mass/Vol] 1.17 mg/dL 0.52 - 1.25 mg/dL [place], [place] EGFR IF NonAfrican [place]ian 58.2 mL/min Abnormal >60 [place], [place] Comment on above: KDIGO guidelines pro vide the following GFR categories: Stage GFR(ml/min/1.73 m2) Terms G1 >=90 Normal or high G2 60-89 Mildly decreased* G3a 45-59 Mildly to moderately decreased G3b 30-44 Moderately to severely decreased G4 15-29 Severely decreased G5 <15 Kidney failure *Relative to young adult level. In the absence of evidence of kidney damage, neither GFR category G1 nor G2 fulfill the criteria for CKD. The CKD-EPI equation is validated in individuals 18 years of age and older. Currently the best equation for estimating glomerular filtration rate (GFR) from serum creatinine in children is the Bedside Pelletier equation. It is less accurate in patients with extremes of muscle mass, restriction of dietary protein, ingestion of creatine, extra-renal metabolism of creatinine, or treatment with medications that affect renal tubular creatinine secretion. GFR/1.73 sq M predicted among blacks MDRD (S/P/Bld) [Vol rate/Area] 67.4 mL/min/{1.73_m2} >60 [place], [place] Glucose [Mass/Vol] 129 mg/dL High 70 - 100 mg/dL [place], [place] Potassium [Moles/Vol] 4.8 mmol/L 3.5 - 5.1 mmol/L [place], [place] Protein [Mass/Vol] 7.2 g/dL 6.3 - 8.2 g/dL [place] Sodium [Moles/Vol] 139 mmol/L 135 - 145 mmol/L [place], [place] Urea nitrogen [Mass/Vol] 25 mg/dL High 7 - 20 mg/dL [place], [place] Hemoglobin A1Con 03-22-2020 Glucose [Mass/Vol] 111 mg/dL Normal [facility] Comment on above: Performed By: #### H A1C2, LIPD2, CMP3, TSH5 ####[address] [place], [place] HbA1c (Bld) [Mass fraction] 5.5 % Normal 4.0-6.0 [facility] Comment on above: Result Comment: --Hg bA1C levels may not be accurate in patients who haverenal disease, received recent blood transfusions, are anemic,or who have dyshemoglobinemia. Performed By: #### H A1C2, LIPD2, CMP3, TSH5 ####[address] [place], [place] eAG 111 mg/dL [place], [place] HbA1c (Bld) [Mass fraction] 5.5 % 4 - 6 % [place] Comment on above: --HgbA1C levels may not be accurate in patients who have renal disease, received recent blood transfusions, are anemic, or who have dyshemoglobinemia. Lipid Panelon 03-22-2020 Chol/HDL 6 Normal [facility] Comment on above: Result Comment: Ref Range:< 3 Low Risk for CHD3-6 Mod Risk for CHD> 6 High Risk for CHD Performed By: #### H A1C2, LIPD2, CMP3, TSH5 ####[facility] [id number] [place], [place] Cholesterol in HDL [Mass/Vol] 34 mg/dL Low 40-60 [facility] Comment on above: Performed By: #### H A1C2, LIPD2, CMP3, TSH5 ####[facility] [address] [place], [place] Low Density Lipoprotein 139 mg/dL Abnormal <100 [facility] Comment on above: Performed By: #### H A1C2, LIPD2, CMP3, TSH5 ####[facility] [address] [place] [address] Triglyceride [Mass/Vol] 210 mg/dL Abnormal <150 [facility] Comment on above: Performed By: #### H A1C2, LIPD2, CMP3, TSH5 ####[facility] [place] [address] Cholesterol [Mass/Vol] 215 mg/dL Abnormal < 200 [facility] Comment on above: Performed By: #### H A1C2, LIPD2, CMP3, TSH5 ####[facility] [place] [address] Cholesterol [Mass/Vol] 215 mg/dL Abnormal <200 [place], [place] Cholesterol in HDL [Mass/Vol] 34 mg/dL Low 40 - 60 mg/dL [place], [place] Cholesterol in LDL [Mass/Vol] 139 mg/dL Abnormal <100 [place] Cholesterol.total/Cho lesterol in HDL [Mass ratio] 6 {ratio} [place], [place] Comment on above: Ref Range: < 3 Low Risk for CHD 3-6 Mod Risk for CHD > 6 High Risk for CHD Triglyceride [Mass/Vol] 210 mg/dL Abnormal <150 [place], [place] MRSA by PCRon 03-22-2020 Staph Aureus Sc No S. aureus detecte d. Negative nasal MRSA PCR has a high negative predictive value for MRSA pneumonia. Consider stopping vancomycin if no other clinical indication. Contact Antimicrobial Stewardship for further recommendations. The analytical performance characteristics of this assay have [facility] in accordance with CLIA regulations. The modifications have not been cleared or approved by the U. S. Food and Drug Administration; however, the FDA has determined that such clearance or approval is not necessary. [place], [place] Test Performed by [facility], [facility] [place] [address] Specimen Source Comment:[facility]al [facility] [email or web address] [place] Otheron 03-22-2020 Interpretation and review of laboratory results Abnormal [place], [place] Test Performed by [facility], [address] [place] [address] [place], [place] [id number] 03-22-2020 SARS-CoV-2 (COVID-19) RNA DEYSI+probe Ql (Unsp spec) Normal [facility] Comment on above: Order Comment: Speci men Source Comment:Nasopharyngeal Swab Performed By: #### C OVID ####[facility] [id number] [place] [address] Staph Aureus Complete Nasalo n 03-22-2020 Staph Aureus Complete Nasal Normal [facility] Comment on above: Order Comment: Speci men Source Comment:Nasal Performed By: #### S APCR ####[facility] [place] [address] TSH without Reflexon 020 TSH Qn 2.967 u[IU]/mL 0.465 - 4.68 u[IU]/mL [place], [place] Test Performed by [facility], [facility] [place] [address] [place], [place] Thyroid Stim. Hormoneon Thyroid Stim. Hormone 2.967 u[IU]/mL Normal 0.465-4.68 0 [facility] Comment on above: Performed By: #### H A1C2, LIPD2, CMP3, TSH5 ####[facility] [address] [place] [address] Vital Signs Date Time Vital Sign Value Performing Clinician Facility 12-24-2021 13:51-0400 Body height 177.8 cm Cierra Johny PA-C Work Phone: [facility] 12-24-2021 13:51-0400 Body temperature 97.7 [degF] Cierra Elkader PA-C Work Phone: [facility] 12-24-2021 13:51-0400 Body weight 83.01 kg Cierra Johny PA-C Work Phone: [facility] 12-24-2021 13:51-0400 Diastolic blood pressure 70 mm[Hg] Cierra Elkader PA-C Work Phone: [facility] 12-24-2021 13:51-0400 Heart rate 69 /min Cierra Johny PA-C Work Phone: [facility] 12-24-2021 13:51-0400 SaO2% (BldA) [Mass fraction] 96 % Cierra Johny PA-C Work Phone: [facility] 12-24-2021 13:51-0400 Systolic blood pressure 132 mm[Hg] Cierra Grier PA-C Work Phone: [facility] 12-10-2021 09:40-0400 Diastolic blood pressure 63 mm[Hg] Karen Casas MD Work Phone: [facility] 12-10-2021 09:40-0400 Heart rate 49 /min Karen Casas MD Work Phone: [facility] 12-10-2021 09:40-0400 Respiratory rate 16 /min Karen Casas MD Work Phone: [facility] 12-10-2021 09:40-0400 SaO2% (BldA) [Mass fraction] 97 % Karen Casas MD Work Phone: [facility] 12-10-2021 09:40-0400 Systolic blood pressure 129 mm[Hg] Karen Casas MD Work Phone: [facility] 12-10-2021 07:52-0400 Body temperature 97.81 [degF] Karen Casas MD Work Phone: [facility] 04-11-2020 08:45-0400 Body Temperature 97.7 [degF] Elizabeth Miller [facility] [place] 04-11-2020 07:00-0400 Pulse (Heart Rate) 71 /min Elizabeth Miller [facility] [place], [place] 04-11-2020 07:00-0400 Pulse Oximetry 96 % Eilzabeth Miller [facility] [place] [facility] [place] 04-11-2020 04:00-0400 BP Diastolic 58 mm[Hg] Elizabeth Miller [facility] [place] [facility] [place] 04-11-2020 04:00-0400 BP Systolic 117 mm[Hg] Elizabeth Miller [facility] [place] [facility] [place] 04-10-2020 16:00-0400 Respiratory Rate 18 /min Elizabeth Miller [facility] [place] 04-09-2020 22:00-0400 BMI (Body Mass Index) 25.84 kg/m2 Elizabeth [facility] [place] [place] 04-09-2020 22:00-0400 Body weight 81.7 kg Elizabeth Gil [facility] [place] 03-30-2020 09:32-0400 Height 177.8 cm Elizabeth Gil [facility] [place] Encounters Encounter Date Encounter Type Care Provider Facility Start: 03-31-2024 End: 03-31-2024 Telephone encounter Cierra Grier PA-C Work Phone: Endocrinology 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) Start: 12-24-2021 End: 12-24-2021 Patient encounter procedure Cierra MONTES-Lio Social Work Phone: General Surgery Comment on above: Family history of co rafiq cancer (Primary Dx); Tubular adenoma Start: 12-10-2021 End: 12-10-2021 Subsequent hospital visit by physician Karen Casas MD Work Phone: Ambulatory Surgery Comment on above: Family history of co rafiq cancer [Z80.0] Start: 08-26-2021 Telephone encounter Cierra MONTES-Lio Social Work Phone: General Surgery Comment on above: 10-01-2021 Colon [facility] Start: 03-21-2020 End: 04-11-2020 Evaluation and management of inpatient Elizabeth Miller Work Phone: [facility] Comment on above: Essential hypertensi on (Primary Dx); CAD in [place] artery Procedures Date Procedure Procedure Detail Performing Clinician Start: 12-10-2021 Colon ca scrn not hi rsk ind Cierra MONTES-C Work Phone: Start: 12-10-2021 Colonoscopy Cierra Gladys osorio PA-Lio Social Work Phone: Start: 04-11-2020 Radiologic exam ches t single view Paul R [facility] Work Phone: Start: 04-11-2020 Thoracentesis for aspiration Paul Andrade [facility] Work Phone: Start: 04-11-2020 Radiologic exam ches t single view Paul Andrade [facility] Work Phone: Start: 04-11-2020 Basic metabolic pane l calcium total Angely Aziken Work Phone: Start: 04-11-2020 Blood count complete automated Angely Aziken Work Phone: Start: 04-11-2020 Hepatic function panel Estela Joyaer Work Phone: Start: 04-10-2020 Thoracentesis for aspiration Paul R [facility] Work Phone: Start: 04-10-2020 Calcium ionized Elizabeth A Miller Work Phone: Start: 04-10-2020 Radiologic exam ches t single view [employer] R [facility] Work Phone: Start: 04-10-2020 Basic metabolic pane l calcium total Angely Aziken Work Phone: Start: 04-10-2020 Blood count complete automated Angely Aziken Work Phone: Start: 04-10-2020 Hepatic function panel Estela Armendariz Work Phone: Start: 04-09-2020 Ct abdomen & pelvis w/o contrast material Paul R [facility] Work Phone: Start: 04-09-2020 Ct thorax w/o contra st material [employer] R [facility] Work Phone: Start: 04-09-2020 Radiologic exam ches t single view [employer] R [facility] Work Phone: Start: 04-09-2020 Basic metabolic pane l calcium total Angely Aziken Work Phone: Start: 04-09-2020 Blood count complete automated Angely Aziken Work Phone: Start: 04-09-2020 Hepatic function panel Estela Armendariz Work Phone: Start: 04-08-2020 Dup-scan xtr veins c omplete bilateral study Kael Kearns Work Phone: Start: 04-08-2020 Radiologic exam ches t single view [employer] R [facility] Work Phone: Start: 04-08-2020 Basic metabolic pane l calcium total Angely Aziken Work Phone: Start: 04-08-2020 Hepatic function panel Estela Armendariz Work Phone: Start: 04-08-2020 Blood count complete automated Angely Aziken Work Phone: Start: 04-07-2020 Urnls dip stick/tabl et rgnt auto w/o microscopy Kael Kearns Work Phone: Start: 04-07-2020 Radiologic exam ches t single view [employer] Work Phone: Start: 04-07-2020 Blood count complete automated Angely Aziken Work Phone: Start: 04-07-2020 Basic metabolic pane l calcium total Angely Aziken Work Phone: Start: 04-07-2020 Hepatic function panel Estela Kala Work Phone: Start: 04-07-2020 ADD ON LAB TEST Elizabeth A Miller Work Phone: Start: 04-07-2020 Calcium ionized Angely Az iken Work Phone: Start: 04-06-2020 Calcium ionized Elizabeth A Miller Work Phone: Start: 04-06-2020 Radiologic exam ches t single view [employer] Work Phone: Start: 04-06-2020 Basic metabolic pane l calcium total Angely Aziken Work Phone: Start: 04-06-2020 Blood count complete automated Angely Aziken Work Phone: Start: 04-06-2020 Hepatic function panel Estela Armendariz Work Phone: Start: 04-05-2020 Radiologic exam ches t single view [employer] Work Phone: Start: 04-05-2020 Basic metabolic pane l calcium total Angely Aziken Work Phone: Start: 04-05-2020 Blood count complete automated Angely Aziken Work Phone: Start: 04-05-2020 Hepatic function panel Estela Armendariz Work Phone: Start: 04-04-2020 Radiologic exam ches t single view Angely Aziken Work Phone: Start: 04-04-2020 Assay of magnesium Chuyita tt Kamal Work Phone: Start: 04-04-2020 Assay of phosphorus inorganic Sumatt Kamal Work Phone: Start: 04-04-2020 Basic metabolic pane l calcium total Anegly Aziken Work Phone: Start: 04-04-2020 Blood count complete automated Angely [employer] Work Phone: Start: 04-04-2020 Hepatic function panel Estela Armendariz Work Phone: Start: 04-04-2020 Procalcitonin (pct) Kael [employer] Work Phone: Start: 04-03-2020 Smr prim src gram/gi emsa stain bct fungi/cell Kael [employer] Work Phone: Start: 04-03-2020 Radiologic exam ches t single view Angely Aziken Work Phone: Start: 04-03-2020 Assay of magnesium Chuyita tt Kamal Work Phone: Start: 04-03-2020 Assay of phosphorus inorganic Sumatt Kamal Work Phone: Start: 04-03-2020 Basic metabolic pane l calcium total Angely Aziken Work Phone: Start: 04-03-2020 Blood count complete automated Angely [employer] Work Phone: Start: 04-03-2020 Hepatic function panel Estela Armendariz Work Phone: Start: 04-02-2020 Assay of osmolality urine Estela Armendariz Work Phone: Start: 04-02-2020 Urnls dip stick/tabl et rgnt auto w/o microscopy Estela Armendariz Work Phone: Start: 04-02-2020 Assay of urea nitrogen urine Estela Armendariz Work Phone: Start: 04-02-2020 Assay of urine sodium A taochely Kala Work Phone: Start: 04-02-2020 Creatinine other source Estela Armendariz Work Phone: Start: 04-02-2020 Radiologic exam ches t single view Angely Aziken Work Phone: Start: 04-02-2020 Assay of magnesium Chuyita tt Kamal Work Phone: Start: 04-02-2020 Assay of phosphorus inorganic Sumatt Kamal Work Phone: Start: 04-02-2020 Basic metabolic pane l calcium total Angely Aziken Work Phone: Start: 04-02-2020 Blood count complete automated Angely Aziken Work Phone: Start: 04-02-2020 Hepatic function panel Estela Armendariz Work Phone: Start: 04-01-2020 Gluc bld gluc mntr d ev cleared fda spec home use Elizabeth A Miller Work Phone: Start: 04-01-2020 Us retroperitoneal r eal time w/image complete Lito Mae Work Phone: Start: 04-01-2020 Radiologic exam abdo men 1 view Estela Armendariz Work Phone: Start: 04-01-2020 Radiologic exam ches t single view Angely Aziken Work Phone: Start: 04-01-2020 Assay of magnesium Chuyita tt Kamal Work Phone: Start: 04-01-2020 Assay of phosphorus inorganic Sumatt Kamal Work Phone: Start: 04-01-2020 Basic metabolic pane l calcium total Angely Aziken Work Phone: Start: 04-01-2020 Blood count complete automated Angely Aziken Work Phone: Start: 04-01-2020 Hepatic function panel Estela Armendariz Work Phone: Start: 03-31-2020 Radiologic exam ches t single view Angely Aziken Work Phone: Start: 03-31-2020 Assay of magnesium Chuyita tt Kamal Work Phone: Start: 03-31-2020 Assay of phosphorus inorganic Sumatt Aguila Work Phone: Start: 03-31-2020 Basic metabolic pane l calcium total Angely Aziken Work Phone: Start: 03-31-2020 Blood count complete automated Angely Aziken Work Phone: Start: 03-31-2020 Blood count reticulo cyte automated Lilly Mancininton Work Phone: Start: 03-31-2020 Hepatic function panel Estela Armendariz Work Phone: Start: 03-30-2020 Gluc bld gluc mntr d ev cleared fda spec home use Elizabeth A Miller Work Phone: Start: 03-30-2020 Gluc bld gluc mntr d ev cleared fda spec home use Elizabeth A Miller Work Phone: Start: 03-30-2020 Assay of glutamyltrase gamma Zayda L Stierl Work Phone: Start: 03-30-2020 BILIRUBIN FRACTIONATED, ADULT Zayda L Stierl Work Phone: Start: 03-30-2020 Blood count complete auto&auto difrntl wbc Zayda L Stierl Work Phone: Start: 03-30-2020 Blood smear peripher al interp phys w/writ report Zayda L Stierl Work Phone: Start: 03-30-2020 Level iv surg pathol ogy gross&microscopic exam Zayda L Stierl Work Phone: Start: 03-30-2020 Assay of urea nitrogen urine Sumatt Aguila Work Phone: Start: 03-30-2020 Assay of urine sodium S umatt Aguila Work Phone: Start: 03-30-2020 Creatinine other source Sumatt Aguila Work Phone: Start: 03-30-2020 Gluc bld gluc mntr d ev cleared fda spec home use Elizabeth A Miller Work Phone: Start: 03-30-2020 Radiologic exam ches t single view Angely [employer] Work Phone: Start: 03-30-2020 Basic metabolic pane l calcium total Elizabeth A Miller Work Phone: Start: 03-30-2020 Basic metabolic pane l calcium total Angely [employer] Work Phone: Start: 03-30-2020 Blood count complete automated Angely eeden Work Phone: Start: 03-30-2020 Hepatic function panel Estela Armendariz Work Phone: Start: 03-29-2020 Gluc bld gluc mntr d ev cleared fda spec home use Elizabeth A Miller Work Phone: Start: 03-29-2020 Gluc bld gluc mntr d ev cleared fda spec home use Elizabeth A Miller Work Phone: Start: 03-29-2020 Ecg routine ecg w/le ast 12 lds w/i&r Estela Joyaer Work Phone: Start: 03-29-2020 Gluc bld gluc mntr d ev cleared fda spec home use Elizabeth A Miller Work Phone: Start: 03-29-2020 Gluc bld gluc mntr d ev cleared fda spec home use Elizabeth A Miller Work Phone: Start: 03-29-2020 Gluc bld gluc mntr d ev cleared fda spec home use Elizabeth A Miller Work Phone: Start: 03-29-2020 End: 03-29-2020 Gluc bld gluc mntr dev cleared fda spec home use Elizabeth A Miller Work Phone: Start: 03-29-2020 End: 03-29-2020 Gluc bld gluc mntr dev cleared fda spec home use Elizabeth A Miller Work Phone: Start: 03-29-2020 End: 03-29-2020 Gluc bld gluc mntr dev cleared fda spec home use Elizabeth A Miller Work Phone: Start: 03-29-2020 Speech and language therapy regime Estela Armendariz Work Phone: Start: 03-29-2020 End: 03-29-2020 Gluc bld gluc mntr dev cleared fda spec home use Elizabeth A Miller Work Phone: Start: 03-29-2020 Chest x-ray 1 view frontal Maryam Khalil Work Phone: Start: 03-29-2020 Gluc bld gluc mntr d ev cleared fda spec home use Elizabeth A Miller Work Phone: Start: 03-29-2020 Assay of lactate Angely A ziken Work Phone: Start: 03-29-2020 Assay of magnesium Angely Aziken Work Phone: Start: 03-29-2020 Basic metabolic pane l calcium total Angely Aziken Work Phone: Start: 03-29-2020 Blood count complete auto&auto difrntl wbc Angely Aziken Work Phone: Start: 03-29-2020 BLOOD GAS, ARTERIAL Nke m Azerickn Work Phone: Start: 03-29-2020 Calcium ionized Angely Az iken Work Phone: Start: 03-29-2020 Fibrinogen activity Nke m Adrianan Work Phone: Start: 03-29-2020 Hepatic function panel Angely Aziken Work Phone: Start: 03-29-2020 PROTIME/INR & PTT Angely Aziken Work Phone: Start: 03-29-2020 Gluc bld gluc mntr d ev cleared fda spec home use Elizabeth A Miller Work Phone: Start: 03-29-2020 Blood count hemoglobin Elizabeth A Miller Work Phone: Start: 03-29-2020 Transfuse erythrocyt es [Volume] Estela Armendariz Work Phone: Start: 03-28-2020 End: 03-29-2020 Gluc bld gluc mntr dev cleared fda spec home use Elizabeth A Miller Work Phone: Start: 03-28-2020 Gluc bld gluc mntr d ev cleared fda spec home use Elizabeth A Miller Work Phone: Start: 03-28-2020 Transfuse erythrocyt es [Volume] Estela Armendariz Work Phone: Start: 03-28-2020 Assay of lactate Angelynilsa dawkins Work Phone: Start: 03-28-2020 Basic metabolic pane l calcium total Angely Aziken Work Phone: Start: 03-28-2020 Blood count complete auto&auto difrntl wbc Angely Aziken Work Phone: Start: 03-28-2020 BLOOD GAS, ARTERIAL Nke m Adrianan Work Phone: Start: 03-28-2020 Calcium ionized Angely Az iken Work Phone: Start: 03-28-2020 Fibrinogen activity Nkshanika Vallecillo Work Phone: Start: 03-28-2020 Hepatic function panel Angely Aziken Work Phone: Start: 03-28-2020 PROTIME/INR & PTT Angely Aziken Work Phone: Start: 03-28-2020 Gluc bld gluc mntr d ev cleared fda spec home use Elizabeth A Miller Work Phone: Start: 03-28-2020 End: 03-28-2020 Gluc bld gluc mntr dev cleared fda spec home use Elizabeth A Miller Work Phone: Start: 03-28-2020 Antibody id rbc anti bodies ea panel ea serum tq Elizabeth A Miller Work Phone: Start: 03-28-2020 Blood typing serologic abo Elizabeth A Miller Work Phone: Start: 03-28-2020 Gluc bld gluc mntr d ev cleared fda spec home use Elizabeth A Miller Work Phone: Start: 03-28-2020 EXTUBATION Bijal riggs Start: 03-28-2020 End: 03-28-2020 Gluc bld gluc mntr dev cleared fda spec home use Elizabeth A Miller Work Phone: Start: 03-28-2020 Assay of lactate Angely A ziken Work Phone: Start: 03-28-2020 Basic metabolic pane l calcium total Angely Vallecillo Work Phone: Start: 03-28-2020 Blood count complete auto&auto difrntl wbc Angelynilsa Kumarn Work Phone: Start: 03-28-2020 BLOOD GAS, ARTERIAL Nkshanika Vallecillo Work Phone: Start: 03-28-2020 Calcium ionized Angely liang Work Phone: Start: 03-28-2020 Fibrinogen activity Nkshanika Vallecillo Work Phone: Start: 03-28-2020 Hepatic function panel Angely Vallecillo Work Phone: Start: 03-28-2020 PROTIME/INR & PTT Angely Kumarn Work Phone: Start: 03-28-2020 End: 03-28-2020 Gluc bld gluc mntr dev cleared fda spec home use Elizabeth A Miller Work Phone: Start: 03-28-2020 End: 03-28-2020 Gluc bld gluc mntr dev cleared fda spec home use Elizabeth A Miller Work Phone: Start: 03-28-2020 Urnls dip stick/tabl et rgnt auto w/o microscopy Estela Armendariz Work Phone: Start: 03-28-2020 Gluc bld gluc mntr d ev cleared fda spec home use Elizabeth A Miller Work Phone: Start: 03-28-2020 End: 03-28-2020 MISCELLANEOUS SENDOUT 1 Estela Armendariz Work Phone: Start: 03-28-2020 End: 03-28-2020 Gluc bld gluc mntr dev cleared fda spec home use Elizabeth A Miller Work Phone: Start: 03-28-2020 Assay of haptoglobin quantitative Estela Armendariz Work Phone: Start: 03-28-2020 Assay of lactate Angely dawkins Work Phone: Start: 03-28-2020 Basic metabolic pane l calcium total Angely Vallecillo Work Phone: Start: 03-28-2020 Blood count complete auto&auto difrntl wbc Angely Vallecillo Work Phone: Start: 03-28-2020 BLOOD GAS, ARTERIAL Nkshanika Vallecillo Work Phone: Start: 03-28-2020 Blood smear peripher al interp phys w/writ report Angely Vallecillo Work Phone: Start: 03-28-2020 Calcium ionized Angely liang Work Phone: Start: 03-28-2020 Creatine kinase total N dina Vallecillo Work Phone: Start: 03-28-2020 Fibrinogen activity Trevor Vallecillo Work Phone: Start: 03-28-2020 Hepatic function panel Angely Vallecillo Work Phone: Start: 03-28-2020 Lactate dehydrogenase ldh Estela Armendariz Work Phone: Start: 03-28-2020 Dup-scan artl eloy abdl/pel/scrot&/rpr orgn lmt Estela Armendariz Work Phone: Start: 03-28-2020 Gluc bld gluc mntr d ev cleared fda spec home use Elizabeth A Miller Work Phone: Start: 03-28-2020 End: 03-28-2020 Gluc bld gluc mntr dev cleared fda spec home use Elizabeth A Miller Work Phone: Start: 03-28-2020 Radiologic exam ches t single view Angely Vallecillo Work Phone: Start: 03-28-2020 End: 03-28-2020 Gluc bld gluc mntr dev cleared fda spec home use Elizabeth A Miller Work Phone: Start: 03-28-2020 Assay of lactate Angely A ziken Work Phone: Start: 03-28-2020 Assay of magnesium Angely Aziken Work Phone: Start: 03-28-2020 Basic metabolic pane l calcium total Angely Aziken Work Phone: Start: 03-28-2020 Blood count complete auto&auto difrntl wbc Angely Aziken Work Phone: Start: 03-28-2020 BLOOD GAS, ARTERIAL Nkshanika m Adrianan Work Phone: Start: 03-28-2020 Calcium ionized Angely Az iken Work Phone: Start: 03-28-2020 Fibrinogen activity Nke m Adrianan Work Phone: Start: 03-28-2020 Hepatic function panel Angely Aziken Work Phone: Start: 03-28-2020 PROTIME/INR & PTT Angely Aziken Work Phone: Start: 03-28-2020 Blood count hemoglobin Elizabeth A Miller Work Phone: Start: 03-28-2020 Gluc bld gluc mntr d ev cleared fda spec home use Elizabeth A Miller Work Phone: Start: 03-28-2020 Transfuse erythrocyt es [Volume] Maryam Khalil Work Phone: Start: 03-27-2020 Gluc bld gluc mntr d ev cleared fda spec home use Elizabeth A Miller Work Phone: Start: 03-27-2020 Gluc bld gluc mntr d ev cleared fda spec home use Elizabeth A Miller Work Phone: Start: 03-27-2020 ADD ON LAB TEST Maryam chau Work Phone: Start: 03-27-2020 Calcium ionized Angely Az iken Work Phone: Start: 03-27-2020 Assay of lactate Angely A ziken Work Phone: Start: 03-27-2020 Assay of phosphorus inorganic Angely Aziken Work Phone: Start: 03-27-2020 Basic metabolic pane l calcium total Angely Kumarn Work Phone: Start: 03-27-2020 Blood count complete auto&auto difrntl wbc Angely Kumarn Work Phone: Start: 03-27-2020 BLOOD GAS, ARTERIAL Trevor Vallecillo Work Phone: Start: 03-27-2020 Cortisol total Angely David wilfredo Work Phone: Start: 03-27-2020 Fibrinogen activity Nkshanika Vallecillo Work Phone: Start: 03-27-2020 Hepatic function panel Angelynilsa Kumarn Work Phone: Start: 03-27-2020 PROTIME/INR & PTT Angely Kumarn Work Phone: Start: 03-27-2020 Level iv surg pathol ogy gross&microscopic exam Angely Kumarn Work Phone: Start: 03-27-2020 End: 03-27-2020 Gluc bld gluc mntr dev cleared fda spec home use Elizabeth A Miller Work Phone: Start: 03-27-2020 Gluc bld gluc mntr d ev cleared fda spec home use Elizabeth A Miller Work Phone: Start: 03-27-2020 Gluc bld gluc mntr d ev cleared fda spec home use Elizabeth A Miller Work Phone: Start: 03-27-2020 Echocardiography Elizabeth A Miller Work Phone: Start: 03-27-2020 Assay of lactate Angely A ziken Work Phone: Start: 03-27-2020 Basic metabolic pane l calcium total Angely Kumarn Work Phone: Start: 03-27-2020 Blood count complete auto&auto difrntl wbc Angely Kumarn Work Phone: Start: 03-27-2020 BLOOD GAS, ARTERIAL Trevor Vallecillo Work Phone: Start: 03-27-2020 Calcium ionized Angelynilsa Mckeon iken Work Phone: Start: 03-27-2020 Cortisol total Angely villalobos Work Phone: Start: 03-27-2020 Fibrinogen activity Trevor Vallecillo Work Phone: Start: 03-27-2020 Hepatic function panel Angely Vallecillo Work Phone: Start: 03-27-2020 PROTIME/INR & PTT Angely Vallecillo Work Phone: Start: 03-27-2020 Gluc bld gluc mntr d ev cleared fda spec home use Elizabeth A Miller Work Phone: Start: 03-27-2020 End: 03-27-2020 Gluc bld gluc mntr dev cleared fda spec home use Elizabeth A Miller Work Phone: Start: 03-27-2020 End: 03-27-2020 Gluc bld gluc mntr dev cleared fda spec home use Elizabeth A Miller Work Phone: Start: 03-27-2020 BEDSIDE SPIROMETRY Missael melbaw R [facility] Work Phone: Start: 03-27-2020 Transfuse erythrocyt es [Volume] Paul R [facility] Work Phone: Start: 03-27-2020 End: 03-27-2020 Gluc bld gluc mntr dev cleared fda spec home use Elizabeth A Miller Work Phone: Start: 03-27-2020 Assay of lactate Bijal Chou Start: 03-27-2020 Basic metabolic pane l calcium total Bijal Chou Start: 03-27-2020 Blood count complete auto&auto difrntl wbc Bijal Aleksandr Chou Start: 03-27-2020 BLOOD GAS, ARTERIAL Skyler marleny Chou Start: 03-27-2020 Calcium ionized Bijal Chou Start: 03-27-2020 CK WITH REFLEX CK-MB As yaz Chou Start: 03-27-2020 Cortisol total Bijal Chou Start: 03-27-2020 Creatine kinase mb f raction only Bijal Chou Start: 03-27-2020 Fibrinogen activity Skyler Chou Start: 03-27-2020 PROTIME/INR & PTT Cherri Chou Start: 03-27-2020 End: 03-27-2020 Gluc bld gluc mntr dev cleared fda spec home use Elizabeth A Miller Work Phone: Start: 03-27-2020 End: 03-27-2020 Gluc bld gluc mntr dev cleared fda spec home use Elizabeth A Miller Work Phone: Start: 03-27-2020 Assay of lactate Angely A ziken Work Phone: Start: 03-27-2020 Assay of magnesium Angely Aziken Work Phone: Start: 03-27-2020 Basic metabolic pane l calcium total Angely Aziken Work Phone: Start: 03-27-2020 Blood count complete auto&auto difrntl wbc Bijal Chou Start: 03-27-2020 BLOOD GAS, ARTERIAL Skyler Chou Start: 03-27-2020 Calcium ionized Bijal Chou Start: 03-27-2020 Fibrinogen activity Skyler Chou Start: 03-27-2020 PROTIME/INR & PTT Cherri esteban Aleksandr Chou Start: 03-27-2020 Ecg routine ecg w/le ast 12 lds w/i&r Angely Aziken Work Phone: Start: 03-27-2020 Gluc bld gluc mntr d ev cleared fda spec home use Elizabeth A Miller Work Phone: Start: 03-27-2020 Radiologic exam ches t single view Angely Aziken Work Phone: Start: 03-27-2020 Transfuse erythrocyt es [Volume] Angely Aziken Work Phone: Start: 03-27-2020 TRANSFUSE PLATELETS Nke m Aziken Work Phone: Start: 03-27-2020 End: 03-27-2020 Gluc bld gluc mntr dev cleared fda spec home use Elizabeth A Miller Work Phone: Start: 03-27-2020 Assay of lactate Angely A ziken Work Phone: Start: 03-27-2020 End: 03-27-2020 Gluc bld gluc mntr dev cleared fda spec home use Elizabeth A Miller Work Phone: Start: 03-27-2020 Basic metabolic pane l calcium total Bijal L Desmett Start: 03-27-2020 BLOOD GAS, ARTERIAL Skyler marleny L Desmett Start: 03-27-2020 Calcium ionized Bijal L Desmett Start: 03-27-2020 Cortisol total Bijal L Desmett Start: 03-27-2020 Fibrinogen activity Skyler marleny L Desmett Start: 03-27-2020 PROTIME/INR & PTT Ashle y L Desmett Start: 03-26-2020 Blood count hemoglobin Elizabeth A Miller Work Phone: Start: 03-26-2020 Blood typing serologic abo Paul R Deepthi Work Phone: Start: 03-26-2020 Gluc bld gluc mntr d ev cleared fda spec home use Elizabeth A Miller Work Phone: Start: 03-26-2020 Transfuse erythrocyt es [Volume] Angely Aziken Work Phone: Start: 03-26-2020 Gluc bld gluc mntr d ev cleared fda spec home use Elizabeth A Miller Work Phone: Start: 03-26-2020 Basic metabolic pane l calcium total Bijal L Desmett Start: 03-26-2020 BLOOD GAS, ARTERIAL Skyler marleny L Desmett Start: 03-26-2020 Calcium ionized Bijal L Desmett Start: 03-26-2020 Fibrinogen activity Skyler marleny L Desmett Start: 03-26-2020 PROTIME/INR & PTT Ashle y L Desmett Start: 03-26-2020 TRANSFUSE FRESH FROZEN PLASMA Bijal L Desmett Start: 03-26-2020 Radiologic exam ches t single view Angely Aziken Work Phone: Start: 03-26-2020 End: 03-26-2020 Gluc bld gluc mntr dev cleared fda spec home use Elizaebth A Miller Work Phone: Start: 03-26-2020 Assay of lactate Elizabeth A Miller Work Phone: Start: 03-26-2020 OPERATIVE REPORT 3m Sca nning Start: 03-26-2020 Assay of magnesium Elizabeth A Miller Work Phone: Start: 03-26-2020 Assay of phosphorus inorganic Elizabeth A Miller Work Phone: Start: 03-26-2020 Basic metabolic pane l calcium total Elizabeth A Miller Work Phone: Start: 03-26-2020 Blood count complete automated Elizabeth A Miller Work Phone: Start: 03-26-2020 BLOOD GAS, ARTERIAL Crystal c A Miller Work Phone: Start: 03-26-2020 Calcium ionized Elizabeth A Miller Work Phone: Start: 03-26-2020 PROTIME/INR & PTT Elizabeth A Miller Work Phone: Start: 03-26-2020 Radiologic exam ches t single view Angely Aziken Work Phone: Start: 03-26-2020 End: 03-26-2020 Gluc bld gluc mntr dev cleared fda spec home use Elizabeth A Miller Work Phone: Start: 03-26-2020 TRANSFUSE CRYOPRECIPITATE Bijal Chou Start: 03-26-2020 End: 03-26-2020 TRANSFUSE PLATELETS Estela Armendariz Work Phone: Start: 03-26-2020 Assay of magnesium Angely Aziken Work Phone: Start: 03-26-2020 Assay of phosphorus inorganic Angely Aziken Work Phone: Start: 03-26-2020 Blood count complete automated Angely Aziken Work Phone: Start: 03-26-2020 BLOOD GAS, ARTERIAL Nke m Aziken Work Phone: Start: 03-26-2020 Fibrinogen activity Nke m Aziken Work Phone: Start: 03-26-2020 PROTIME/INR & PTT Angely Aziken Work Phone: Start: 03-26-2020 End: 03-26-2020 Gluc bld gluc mntr dev cleared fda spec home use Elizabeth A Miller Work Phone: Start: 03-26-2020 Calcium ionized Estela Armendariz Work Phone: Start: 03-26-2020 End: 03-27-2020 Blood count complete auto&auto difrntl wbc Bijal Chou Start: 03-26-2020 End: 03-26-2020 Comprehensive metabolic panel Bijal riggs Start: 03-26-2020 MANUAL DIFFERENTIAL Skyler marleny Chou Start: 03-26-2020 Gluc bld gluc mntr d ev cleared fda spec home use Elizabeth A Miller Work Phone: Start: 03-26-2020 Radiologic exam ches t single view Angely [employer] Work Phone: Start: 03-26-2020 Ecg routine ecg w/le ast 12 lds w/i&r Angely [employer] Work Phone: Start: 03-26-2020 Gluc bld gluc mntr d ev cleared fda spec home use Elizabeth A Miller Work Phone: Start: 03-26-2020 End: 03-26-2020 Assay of magnesium Elizabeth A Miller Work Phone: Start: 03-26-2020 End: 03-26-2020 Assay of phosphorus inorganic Elizabeth A Aln inal Work Phone: Start: 03-26-2020 Basic metabolic pane l calcium total Elizabeth A Miller Work Phone: Start: 03-26-2020 Blood count complete automated Elizabeth A Miller Work Phone: Start: 03-26-2020 End: 03-26-2020 BLOOD GAS, ARTERIAL Elizabeth A Miller Work Phone: Start: 03-26-2020 Calcium ionized Elizabeth A Miller Work Phone: Start: 03-26-2020 End: 03-26-2020 Fibrinogen activity Elizabeth A Miller Work Phone: Start: 03-26-2020 End: 03-26-2020 PROTIME/INR & PTT Elizabeth A Miller Work Phone: Start: 03-26-2020 US Heart Transesophageal Paul Andrade [facility] Work Phone: Start: 03-25-2020 Urnls dip stick/tabl et rgnt auto w/o microscopy Paul Andrade [facility] Work Phone: Start: 03-25-2020 Assay of magnesium Missael Andrade [facility] Work Phone: Start: 03-25-2020 Blood count complete auto&auto difrntl wbc Paul Andrade [facility] Work Phone: Start: 03-25-2020 Hemoglobin glycosylated a1c Paul Andrade [facility] Work Phone: Start: 03-25-2020 Prothrombin time Lucien nAdrade [facility] Work Phone: Start: 03-25-2020 Thromboplastin time partial plasma/whole blood Paul Andrade [facility] Work Phone: Start: 03-25-2020 Antibody id rbc anti bodies ea panel ea serum tq Paul Andrade [facility] Work Phone: Start: 03-25-2020 Blood typing serologic abo Paul Andrade [facility] Work Phone: Start: 03-25-2020 C (LITTLE) ANTIGEN TYPING Paul Andrade [facility] Work Phone: Start: 03-25-2020 E ANTIGEN TYPING Lucien Andrade [facility] Work Phone: Start: 03-25-2020 FYA ANTIGEN TYPING Missael Andrade [facility] Work Phone: Start: 03-23-2020 Dup-scan xtr veins unilateral/limited study Estela Armendariz Work Phone: Start: 03-23-2020 Echo tthrc r-t 2d w/ wom-mode compl spec&colr d Estela Armendariz Work Phone: Start: 03-23-2020 Radiologic exam ches t single view Estelabenjamín Armendariz Work Phone: Start: 03-23-2020 Basic metabolic pane l calcium total Estela Armendariz Work Phone: Start: 03-23-2020 Blood count complete automated Estelabenjamín Armendariz Work Phone: Start: 03-22-2020 COVID-19 Estela Louise Work Phone: Start: 03-22-2020 MRSA BY PCR Estela Louise Work Phone: Start: 03-22-2020 Ecg routine ecg w/le ast 12 lds w/i&r Estela Armendariz Work Phone: Start: 03-22-2020 Assay of thyroid sti mulating hormone tsh Estela Armendariz Work Phone: Start: 03-22-2020 Comprehensive metabolic panel Estela Armendariz Work Phone: Start: 03-22-2020 Hemoglobin glycosylated a1c Estela Armendariz Work Phone: Start: 03-22-2020 Lipid panel Estela Louise Work Phone: Plan of Treatment Date Care Activity Detail Author Start: 12-10-2024 Colonoscopy COLONOSCOPY [facility] Start: 12-10-2024 COLORECTAL CANCER SCREENING COLORECTAL CANCER SCREENING [facility] Start: 12-10-2024 Screening for malign ant neoplasm of colon [facility] Start: 02-14-2024 Covid-19 Vaccine ( season) Covid-19 Vaccine ( season) [facility] Start: 02-14-2024 Influenza vaccination Influenza Vacc ine (#1) [facility] Start: 06-15-2023 Advance Directive Discussion Advance Directive Discussion [facility] Start: 04-11-2023 Diabetes Screening Diabetes Screenin g [facility] Start: 02-13-2022 Influenza vaccination C [facility] Start: 06-15-2021 ADVANCE DIRECTIVE DISCUSSION ADVANCE DIRECTIVE DISCUSSION [facility] Start: 04-11-2021 Creatinine measurement Creatinine mo nitoring [place], [place] Start: 04-11-2021 Potassium monitoring Potassium monit oring [place] Start: 03-22-2021 TSH Qn TSH testing [place], [place] Start: 04-17-2020 End: 04-17-2020 Office Visit 04/17/2020 Office Visit Cardiothoracic Surgery Paul Lacey, [employer] [employer] [address] [place] [address] [phone] [facility] Start: 03-23-2020 Annual Wellness Visi t (AWV) Annual Wellness Visit (AWV) [place], [place] Start: 02-14-2020 Influenza vaccination Flu vaccine (# 1) [place] Start: 2014 RSV Vaccine (1 - 1-d ose 75+ series) RSV Vaccine (1 - 1-dose 75+ series) [facility] Start: 2004 Pneumococcal 65+ yea rs Vaccine (1 of 1 - PPSV23) Pneumococcal 65+ years Vaccine (1 of 1 - PPSV23) [place] Start: 2004 Pneumococcal Vaccine : 65+ (1 of 1 - PCV) Pneumococcal Vaccine: 65+ (1 of 1 - PCV) [facility] Start: 2004 PNEUMOCOCCAL: 65+ (1 - PCV) PNEUMOCOCCAL: 65+ (1 - PCV) [facility] Start: 2004 PNEUMOVAX AGE 65 AND OVER WITH 5YR LOOKBACK (#1) PNEUMOVAX AGE 65 AND OVER WITH 5YR LOOKBACK (#1) [facility] Start: 1989 Shingles Vaccine (1 of 2) Alcaraz gles Vaccine (1 of 2) [place], [place] Start: 1989 SHINGRIX VACCINE (1 of 2) ALCARAZ GRIX VACCINE (1 of 2) [facility] Start: 1984 COLOGUARD (FIT-DNA) COLOGUARD (FIT-D NA) [facility] Start: [address] COLONOGRAPHY [facility] Start: 1984 DIABETES SCREEN DIABETES SCREEN [facility] Start: 1984 FECAL OCCULT BLOOD FECAL OCCULT BLOO D [facility] Start: 1984 Screening for malign ant neoplasm of colon [facility] Start: 1984 SIGMOIDOSCOPY SIGMOIDOSCOPY [facility] Start: 1958 DTaP/Tdap/Td vaccine (1 - Tdap) DTaP/Tdap/Td vaccine (1 - Tdap) [place], [place] Start: 1958 Urine microalbumin profile [facility] Start: 1957 Anxiety Screening Anxiety Screening [facility] Start: 11-19-1957 Depression Screening Depression Scre ening [facility] Start: 1944 COVID-19 VACCINE (#1) COVID-19 VACCI NE (#1) [facility] Start: 1944 COVID-19 VACCINE (1) COVID-19 VACCIN E (1) [facility] Start: 1939 COVID-19 VACCINE (#1) COVID-19 VACCI NE (#1) [facility] Basic metabolic 2000 panel [place], [place] CBC [place] CORTISOL TOTAL [place] Hepatic Function Panel Hepatic F unction Panel Lab Routine 03/28/2020 3:15 AM EDT [place] Magnesium [Mass/Vol] [place], [place] End: 04-03-2020 Microscopic observation Gram stain Nom (Unsp spec) Gram Stain Microbiology Routine Once for 1 Occurrences starting 04/03/2020 until 04/03/2020 [place] Comment on above: Once for 1 Occurrenc es starting 04/03/2020 until 04/03/2020 Pathogen Reduced Lekuoreduced Platelet Pheresis Pathogen Reduced Lekuoreduced Platelet Pheresis Blood Bank Routine 03/25/2020 10:45 AM EDT [place] PREPARE CRYOPRECIPIT ATE (CROSSMATCH), 1 Product PREPARE CRYOPRECIPITATE (CROSSMATCH), 1 Product Blood Bank Routine 03/25/2020 10:45 AM EDT [place] PREPARE FRESH FROZEN PLASMA [place] PREPARE PLATELETS, 1 Product PREPARE PLATELETS, 1 Product Blood Bank Routine 03/25/2020 10:45 AM EDT [place] PREPARE RBC (CROSSMA TCH), 2 Units [place] End: 08-26-2022 Screening colonoscopy COLONOSCOPY SCREENING Endoscopy Routine Family history of colon cancer Personal history of colonic polyps Change in bowel habits 1 Occurrences starting 08/26/2021 until 08/26/2022 [facility] Work Phone: Comment on above: 1 Occurrences starti ng 08/26/2021 until 08/26/2022 SURGICAL PATHOLOGY [facility] Work Phone: Comment on above: Release Upon Lexiiin g for 1 Occurrences starting 12/10/2021, 1 completed [facility] Payers Date Payer Category Payer Medicare HU[employer]NA MEDICARE HUMANA CHOICE-PPO MEDICARE [id number] 2019-Present [address] [address] [place] [address] [id number] 2017 Medicare HUMANA MEDICARE HU[employer]NA MEDICARE PPO [id number] 2017-Present [phone] [address] [address] [place] [address] PPO [id number] 2014 Medicare [id number] Social History Date Type Detail Facility Start: 04-06-2020 End: 08-26-2021 Tobacco smoking status NHIS Never smoker [facility] Start: 04-06-2020 End: 08-26-2021 Tobacco use and exposure Never used [place], [place] Start: 04-06-2020 End: 12-24-2021 Alcohol intake Current drinker of alcohol (finding) [place] Start: 03-21-2020 Alcohol Comment occasional [facility] [place], [place] Start: 1940 Sex Assigned At Not on file M [place], [place] Start: 08-16-2021 End: 12-24-2021 Exposure to SARS-CoV-2 (event) Not sure [place] Start: 12-24-2021 End: 07-11-2022 History of Social function [facility] Start: 12-24-2021 End: 07-11-2022 Tobacco use panel [facility] National Score (1-100), lower number is lower risk 67 [facility] Clinical Notes 04-11-2020 to 03-31-2024 Telephone Encounter - Milagros Correa MA - 03/31/2024 11:11 AM EDTTelephone Encounter - Milagros Correa MA - 03/31/2024 11:11 AM EDTPatient Instructions Note Date & Type Note Facility 03-31-[address] er Note Dr Sim's office phones to request last colonoscopy notes faxed for their records. Office was questioning when repeat scope was due. ALEXYS was faxed through [employer] as requested. Milagros Correa MA [facility] 03-31-2024 Miscellaneous Notes Formattin g of this note might be different from the original. Dr Sim's office phones to request last colonoscopy notes faxed for their records. Office was questioning when repeat scope was due. ALEXYS was faxed through [employer] as requested. Milagros Correa MA documented in this encounter [facility] 12-24-2021 Instructions Cierra Grier PA-C - 12/24/2021 2:06 PM EDT The following instructions are important for you related to your office visit today with the [facility]. INSTRUCTIONS FOLLOWING A POLYP FOUND AT COLONOSCOPY You were found to have adenomatous colon polyps. I recommend you undergo repeat endoscopy in 3 years. If you note bleeding, change in bowel habits, or other suspicious colon related symptoms before that time, those symptoms should be evaluated as necessary. If you have any difficulties or concerns, you should contact our office immediately. If you note any additional difficulties, questions, or concerns, you should contact our office immediately @ [phone] and ask to be transferred to the General Surgery department. documented in this encounter [facility] 12-24-2021 History of Presen t illness Narrative FOLLOW UP VISIT - ENDOSCOPY NAME: Karen Bradley [facility] NO.: [id number] DATE OF SERVICE: 12/24/2021 : 1940 REFERRING PHYSICIAN: Ruben Sim MD Karen is a patient I am following for family history of colon cancer and personal history of colon polyps. Dr. Casas performed lower endoscopy on 12/10/21. The patient was found to have: Impression: - Three small polyps in the cecum, removed with a cold snare. Resected and retrieved. - Diverticulosis in the sigmoid colon. - The examination was otherwise normal on direct and retroflexion views. - Medium-sized lipoma at the hepatic flexure. Pathology demonstrated: FINAL DIAGNOSIS Cecal polyps, biopsies: - Multiple fragments of tubular adenoma. - Separate fragments of colonic mucosa with no diagnostic abnormality. JEL 12/11/2021 The patient notes no complaints since the procedure. VITALS: Blood pressure 132/70, pulse 69, temperature 36.5 C (97.7 F), height 177.8 cm (5' 10 ), weight 83 kg (183 lb), SpO2 96 %. General: patient is alert, cooperative, pleasant and in no acute distress On examination, the abdomen is benign. Assessment IMPRESSION: s/p colonoscopy with polypectomy-multiple tubular adenomas PLAN: The operative findings and pathology report were reviewed with the patient, and the patient has had the opportunity to ask questions and have questions answered. If the patient notes any problems or changes in bowel function, the patient should contact me immediately. Otherwise I recommend follow up endoscopy in 3 years. HM updated and recall letter generated. Patient verbalized understanding of all above and agreed with the plan Diagnoses: (Z80.0) Family history of colon cancer (primary encounter diagnosis) (D36.9) Tubular adenoma I spent a total of 24 minutes on the date of the service which included preparing to see the patient, [id number] patient care, completing clinical documentation, obtaining and/or reviewing separately obtained history, independently interpreting results (not separately reported) and communicating results to the patient/family/caregiver. Cierra Grier PA-C documented in this encounter [facility] 12-10-2021 Nurse Note Patient arrived laying on left side. Patient states he is not having any pain. Patient's stomach soft to palpation and appears non-distended. Lexus E Gralinski, RN documented in this encounter [facility] 12-10-2021 History and physi camila note UPDATED PROCEDURAL SEDATION HISTORY AND PHYSICAL EXAMINATION SERVICE DATE: 12/10/2021 SERVICE TIME: 8:38 AM PHYSICAL EXAM MUST BE COMPLETED ON ADMISSION PROCEDURE: Procedure Indications: The History and Physical (completed in the past 30 days) has been reviewed and the patient has been examined. The contents accurately reflect the patient's condition with the following additions or revisions since the H&P was completed. ASA Class: ASA Class:: Patient with mild systemic disease Examination indicates no changes. AIRWAY: Airway Visualization of Uvula: Yes Mouth opening greater than 2 fingerbreadths: Yes Neck Full Range of Motion: Yes LUNGS: Lungs clear to auscultation CARDIAC: Regular rhythm,Regular rate Provisional Diagnosis/Treatment Plan: family history - screening colonoscopy SEDATION GOAL: Moderate This H&P can be found in the attached. SIGNATURE: Karen Casas MD PATIENT NAME: Karen Kearns DATE: December 10, 2021 TIME: 8:38 AM Images from the original note were not included. HISTORY AND PHYSICAL Karen Kearns 1940 REFERRING PHYSICIAN: Ruben Sim Chi, MD CHIEF COMPLAINT: Consult (colonoscopy) HPI: The patient is a 81 year old male referred for endoscopy. Karen notes a family history of colon cancer as well as a personal history of colon polyps. Patient notes in recent months he has had some smaller stools and less frequent BMs than usual. Patient denies weight changes, blood in stools, black tarry stools or abdominal pain. The patient notes no upper GI complaints. Karen has undergone prior endoscopy. Most recent colonoscopy 08/02/[address] Land under procedural sedation with findings of sigmoid and descending colonic diverticulosis, no other abnormalities. Repeat colonoscopy was recommended in 5 years for surveillance. Patient's past medical history is significant for CABG in 2019. Patient follows with Dr. Maher in cardiology. He denies chest pain, shortness of breath or recent hospitalizations. Denies problems with sedation in the past. Patient is maintained on a daily aspirin. PAST MEDICAL HISTORY PAST MEDICAL HISTORY Diagnosis Date Benign neoplasm of colon Diverticulosis of colon (without mention of hemorrhage) Hemorrhage of gastrointestinal tract, unspecified PAST SURGICAL HISTORY PAST SURGICAL HISTORY Procedure Laterality Date BX/EXC LYMPH NODE OPEN SUPERFICIAL left axilla COLONOSCOPY FLX DX W/COLLJ SPEC WHEN PFRMD 07/20/2000 Colonoscopy COLONOSCOPY FLX DX W/COLLJ SPEC WHEN PFRMD 09/11/2009 Colonoscopy COLONOSCOPY FLX DX W/COLLJ SPEC WHEN PFRMD 08/02/2015 Colonoscopy COLONOSCOPY W/BIOPSY SINGLE/MULTIPLE 10/19/2006 HEART SURGERY HX 03/2020 LIPOMA (LARGE) 05/14/2018 left shoulder PAST SURGICAL HISTORY OF 2004 hemorhhoidectomy PAST SURGICAL HISTORY OF right arm distal tendon. PAST SURGICAL HISTORY OF Left Lt elbow pinched nerve PAST SURGICAL HISTORY OF Left Lt leg hardware placed ROTATOR CUFF REPAIR Right RPR INGUN HERNIA SLIDING ANY AGE right -2 times CURRENT MEDICATIONS Current Outpatient Medications Medication Sig levothyroxine (SYNTHROID) 75 mcg tablet metoprolol succinate ER (TOPROL XL) 25 mg 24 hr tablet pravastatin (PRAVACHOL) 20 mg tablet aspirin, enteric coated (ASPIRIN, ENTERIC COATED) 81 mg EC tablet Take 1 tablet by mouth once daily. CHOLECALCIFEROL (VITAMIN D3) 1,000 UNIT TAB 1-2 tabs daily beta-carotene(a) w-c & e/min(OCUVITE TAB) takes 3 once a day peg 3350-Electrolytes (GOLYTELY) 236-22.74-6.74 -5.86 gram suspension Take 4,000 mL by mouth one time only for 1 dose. ramipril (ALTACE) 10 mg capsule Take 10 mg by mouth once daily. (Patient not taking: Reported on 08/26/2021 ) omega-3 fatty acids(FISH OIL 500 MG CAP) takes 3 once a day (Patient not taking: ) No current facility-administered medications for this visit. ALLERGIES: Patient has no known allergies. PERSONAL HISTORY: SOCIAL HISTORY Social History Tobacco Use Smoking status: Never Smoker Smokeless tobacco: Never Used Vaping Use Vaping Use: Never used Substance Use Topics Alcohol use: Yes Comment: OCC Drug use: Never FAMILY HISTORY: FAMILY HISTORY FAMILY HISTORY Problem Relation Age of Onset Colon Cancer Mother at age 61 or 62. at age 63. Colon Cancer Maternal Grandmother REVIEW OF SYMPTOMS: The review of systems data was entered by the nurse and reviewed by fl Nursing Notes: Mala Pinon RN 08/26/2021 8:53 AM Signed REVIEW OF SYSTEMS: General: The patient denies fatigue, denies weight loss, denies weight gain, denies feeling hot, and denies feelings of cold. Eyes: The patient denies glaucoma, denies eye injury/surgery, does not wear glasses or contacts. Ear/Nose/Throat: The patient denies allergies, denies hayfever, denies ear infections, and denies bloody noses. Cardiovascular: The patient denies chest pain, NOTES heart disease, NOTES high blood pressure,denies cardiac stent, denies prior heart attack, NOTES irregular heart beat, NOTES high cholesterol, denies poor circulation, denies heart failure, other cardiac issues, denies claudication, denies cold feet, denies peripheral arterial stent. Respiratory: The patient denies tuberculosis, denies pneumonia, denies frequent cough, denies pulmonary embolism, denies shortness of breath, and denies coughing up blood. Gastrointestinal: The patient denies difficulty swallowing, denies acid reflux, denies ulcers, denies vomiting, denies jaundice/hepatitis, denies gallbladder problems, denies black or tarry stools, NOTES hemorrhoids, denies bleeding from rectum, denies diverticulitis, denies constipation, denies diarrhea, denies loss of stool control, and denies hernias. Kidney/Bladder: The patient denies kidney stones, denies urine infections, and denies bloody urine. Skin: The patient denies a history of skin cancer, denies bleeding/changing moles, and denies a history of skin rash. Neurologic: The patient denies a history of epilepsy/convulsions, denies headaches, denies head/spinal injuries, and denies stroke/TIA. Psychiatric: The patient denies psychiatric medications, denies depression, and denies voices, denies substance abuse. Endocrine: The patient NOTES thyroid disorders, denies diabetes, and denies hormonal problems. Hematologic: The patient denies a history of bruising, denies bleeding, and denies anemia, denies blood clots. Infections: The patient denies a history of measles and mumps, denies rheumatic fever, and denies sexually transmitted diseases. Musculoskeletal: The patient denies back pain/injury, denies back problems, denies sciatica, denies knee/foot trouble, denies arthritis, or denies gout. When was patient's last Mammogram screening? N/A Last Colonoscopy: 2015 Mala Pinon RN I have confirmed and edited as necessary, the PFSH and ROS obtained by others. Cierra Grier PA-C PHYSICAL EXAMINATION: General: The patient is 81 year old male, well nourished, well hydrated in no acute distress. The patient is oriented to time, place, and person. VITALS: Blood pressure 150/80, pulse 66, temperature 36.2 C (97.2 F), height 177.8 cm (5' 10 ), weight 84.6 kg (186 lb 6.4 oz), SpO2 98 %. Body mass index is 26.75 kg/m . HEENT: Normal cephalic, ataumatic, pupils are equally round, sclera are anicteric, mucous membranes are moist, oropharynx is clear. Neck has no masses, asymmetry or lymphadenopathy. Respiratory: Clear to auscultation and percussion. Normal respiratory excursion and pattern. Cardiac: Examination is regular rate and rhythm. Normal S1/S2 Abdominal exam: Soft, nontender, with no palpable masses. No hepatosplenomegaly. No palpable hernias. Extremities: no clubbing, cyanosis or edema. No adenopathy. LABORATORY VALUES: As Noted RADIOLOGIC STUDIES: As Noted Assessment IMPRESSION: family history of colon cancer, personal history of colon polyps. constipation PLAN: I have reviewed my findings with the surgeon. Will plan for lower endoscopy. We discussed the risks and benefits of the planned endoscopy. I have informed the patient that complications can occur including failure to complete the endoscopy and perforation. The patient had the opportunity to ask questions concerning the planned endoscopy. My staff has also explained the procedure to the patient in understandable terms and has given the patient printed material concerning the procedure. The patient freely consents to surgery. The patient was offered a surgery/procedure at a [facility] facility. I have counseled the patient regarding the risk of exposure to and/or potential harm posed by the COVID-19 virus with having a surgery/procedure at this time versus the risk of delaying the surgery/procedure. It is not possible to know either the risk of delaying the surgery or procedure or chance of getting an infection with perfect accuracy, but a joint decision was made between the patient and myself to proceed at this time with endoscopy. Request for cardiac clearance faxed to [facility] Patient to remain on his aspirin and fish oil per Dr. Casas I plan to use Golytely bowel preparation. Ok to substitute with generic or Miralax/dulcolax prep if Golytely unavailable Diagnoses: (Z80.0) Family history of colon cancer (primary encounter diagnosis) (Z86.010) Personal history of colonic polyps (K59.09) Other constipation Consultation requested by Dr. Sim for an opinion regarding colonoscopy. My final recommendations will be communicated back to the requesting physician by way of shared Medical record or letter to requesting physician via US mail. Cierra Grier PA-C documented in this encounter [facility] 08-26-2021 Miscellaneous Notes cardiac clearance received and scanned 10-01-2021 [facility] cardiac clearance sent to [facility] documented in this encounter [facility] 04-11-2020 Note [facility] Evaluation note Diagnosis Family history of colon cancer- Primary Family history of malignant neoplasm of gastrointestinal tract Personal history of colonic polyps Change in bowel habits Other symptoms involving digestive system [facility] Diagnosis Family history of colon cancer Family history of malignant neoplasm of gastrointestinal tract Personal history of colonic polyps Change in bowel habits Other symptoms involving digestive system [facility] Diagnosis Family history of colon cancer- Primary Family history of malignant neoplasm of gastrointestinal tract Tubular adenoma Benign neoplasm of unspecified site [facility] Outpatient Procedure (Routine) - Authorized Specialty Diagnoses / Procedures Referred By Sidney reeder Referred To Contact [facility] Diagnoses Family history of colon cancer Personal history of colonic polyps Change in bowel habits Procedures COLONOSCOPY SCREENING COLONOSCOPY FLX DX W/COLLJ SPEC WHEN Cierra Anderson PA-C [address] [place] [address] [facility] [address] [place] [address] Referral ID Status Reason Start Date Expiration Date Visits Requested Visits Authorized [id number] Authorized Auto-Generat ed Referral 10/01/2021 10/31/2021 1 1 [facility] for referral (narrative)* Outpatient Procedure (Routine) - Closed Specialty Diagnoses / Procedures Referred By Sidney t Referred To Contact [facility] Diagnoses Family history of colon cancer Personal history of colonic polyps Change in bowel habits Procedures COLONOSCOPY SCREENING COLONOSCOPY FLX DX W/COLLJ SPEC WHEN Cierra Anderson PA-C [address] [place] [address] [facility] [address] [place] [address] Referral ID Status Reason Start Date Expiration Date V isits Requested Visits Authorized [id number] Closed Auto-Generate d Referral 10/01/2021 10/31/2021 1 1 [facility] * Deepthi Paul Lupe, STAPLE CUTTER - BAG TURNER - 04/11/2020 1:06 PM EDT Discharge Summary: Cardiothoracic Surgery Karen Kearns :1940 AGE: 79 y.o. ADMIT DATE: 03/21/2020 DISCHARGE DATE: 04/11/2020 DISCHARGING SURGEON: Elizabeth Miller MD, Office Number: [phone] PRIMARY CARE PHYSICIAN: KEVYN SIM MD, VISIT STATUS: Admission CODE STATUS: Full Code SURGERY: 03/26/20 S/P CABG x3 on w/return to OR for bleeding-POD#-16 HOSPITAL COURSE: Pt of Dr. Smith transfer from [place] with [facility] - taken for CABG with redo sternotomy for bleeding - complicated hospital course - post op A-fib loaded with amiodarone - slow to recover insurancedid not approve IP rehab despite recs - pt refused SNF - Post thoracentisis yesterday and today - will need repeat CXR prior to DC home. 04/09 - Positive CT chest and Abdomen for liver cyst and pleural effusion 04/09 Venous US positive for Study shows an acute deep vein thrombosis noted in the right peroneal veins and right gastrocnemius veins. 2. Study shows an acute superficial vein thrombosis noted in the left great saphenous vein. 3. 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 CONSULTS: Critical Care Medicine/Pulm DIAGNOSTICS Labs: 03/14 from outside facility SCr- 1.47 WBC- 6.5 Hgb-14.1 Hct- 45 plt-152 Stress Test 03/07: from outside facility Abnormal; area of stress-induced myocardial ischemia in portions of the distal anterior and apical segments; LVEF-63% TTE 03/07: from outside facility LV-EF 65% no RWA; RV-normal systolic function; Atria-mildy enlarged; MV- mild 1+ MR; TV-trivial insufficiency; AV-trileaflet, mild focal av calcifications Cath 03/21: from outside facility ([place]-Dr. 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 CAD in [place] artery I25.10 S/P CABG (coronary artery bypass graft) Z95.1 Stress hyperglycemia R73.9 Postoperative anemia due to acute blood loss D62 Consumptive coagulopathy (HCC) D65 Paroxysmal atrial fibrillation (HCC) I48.0 Hyperbilirubinemia E80.6 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, F32.9 Other constipation K59.09 Severe malnutrition (HCC) E43 DISCHARGE MEDICATIONS: Karen Kearns Home Medication Instructions HEATHER:[id number] Printed on:04/11/20 1302 Medication Information amiodarone (CORDARONE) 200 MG tablet Take 1 tablet by mouth daily amoxicillin-clavulanate (AUGMENTIN) 875-125 MG per tablet Take 1 tablet by mouth every 12 hours for 14 days aspirin 81 MG EC tablet Take 81 mg by mouth daily clopidogrel (PLAVIX) 75 MG tablet Take 75 mg by mouth daily furosemide (LASIX) 40 MG tablet Take 1 tablet by mouth daily for 5 days metoprolol tartrate (LOPRESSOR) 25 MG tablet Take 0.5 tablets by mouth 2 times daily oxyCODONE-acetaminophen (PERCOCET) 5-325 MG per tablet Take 1 tablet by mouth every 8 hours as needed for Pain for up to 7 days. CORE CARDIAC MEDICATIONS: Beta-gloria prescribed at discharge: [x] Yes [] No - reason why: ACEi or ARB prescribed at discharge: [] Yes [x] No - reason why: ASHLEIGH Statin prescribed at discharge: [] Yes [x] No - reason why: Liver dysfunction Anti-platelet agent prescribed at discharge: [x] Yes [] No - reason why: If yes, type: plavix and asa Post-operative Atrial Fibrillation: [x]Yes [] No OAC: [] Yes [x] No due to bleeding risk Initial Post-op RBC transfusion date/reason: Chronic Lung Disease: CLD present (severity not documented) BMI CLASSIFICATION:Overweight (BMI 25.0-29.9) ACTIVITY: activity as tolerated, strict post-sternotomy/post-thoracotomy sternal precautions as outlined in the home going instructions and no driving or operating heavy machinery until released by provider FOLLOW UP: with me in 6 days 48 hour phone call DISPOSITION: Home with Home Assist A copy of the discharge instructions which included the medications at the time of discharge, follow-up appointments, phone numbers to call with questions, activity, restrictions, and limitations wasprovided to the patient or their family. We greatly appreciate the opportunity to participate in the care of your patient. If you have any additional questions or concerns regarding any aspects of their care or management please do not hesitate to contact us. SIGNED: NYLA Ignacio CNP 04/11/2020, 1:06 PM documented in this encounter Discharge Instructions * Discharge Instr - Lab* Brandy Salazar RN - 04/11/2020 11:05 AM EDT Your physician has ordered skilled home care services for you. Your home care will be provided by: [facility] [phone] * Additional Instructions* Paul Lacey APRN - CNP - 04/11/2020 [facility]: Cardiothoracic Surgery [address] [facility] #[phone] Notify us if the following occur - Increased tenderness, redness, or swelling of your incisions. - Any drainage from the chest incision (clear or pink drainage from the leg incision or chest tube site is common). - Angina symptoms like those you had before surgery - Sharp pain in chest, neck or shoulder that is worse when taking a deep breath - Persistent fever greater than 100 degrees F or 38 degrees C - Flu-like symptoms-chills, aches, fever, increased fatigue - Heart rate faster than 150 beats/minute with shortness of breath or new irregular heart rate. - Any unusual bleeding - Shortness of breath not relieved by rest - Weight gain of three pounds in one day or five pounds over one week Activity Instructions - Sternal Precautions for 6 weeks - Do not lift, push, or pull anything heavier than 10 pounds for 6 weeks (a gallon of milk weighs 8pounds). - Do not drive until you have been given permission by your surgeon/provider and until you are off narcotic/opioid pain medication - It is ok to sleep on your side if you prop pillows to support your back. Do not sleep on your stomach. - Walk at least 4 times a day, start with 5 minute intervals, increase minutes walked each day. Do not walk on a treadmill - Balance rest and activity during your recovery - Use the stairs, but go slowly, Use the handrail for balance but do not pull yourself up with yourarms. - Shower daily. Do not take your heart medication right before you shower. You could become lightheaded from your blood pressure and heart medication. Always have someone nearby to assist you. - Do not take a tub bath or use a hot tub until all incision are completely healed (no scab). - Put emanuel hose on in AM and remove at bedtime. Elevate your feet above level of heart when you are sitting. - Cough and deep breathe and use incentive spirometer every hour (10x/hour while awake for two weeks. Other Instructions - Weigh yourself daily at the same time (after you urinate but before breakfast) - Keep a record of your daily weight, and bring to your first post op office visit - Take all medications as prescribed. Bring all your medication bottles to any follow up office visit Incision Care - Wash your sternal incision with anti-bacterial soap and warm water. Pat dry, and leave open to air. Do not use any lotions, or powders, or ointments. documented in this encounter History of Present Illness * Cruz Salvador MD - 04/11/2020 5:23 PM EDT [facility] Progress Note SUBJECTIVE: Karen Kearns is a 79 y.o. male who is being followed by nephrology for ASHLEIGH/CKD . Any overnight events - CABG 03/26/2020 Medications Scheduled Meds: sodium chloride flush 10 mL Intravenous 2 times per day furosemide 40 mg Oral Daily amoxicillin-clavulanate 1 tablet Oral 2 times per day amiodarone 200 mg Oral BID heparin (porcine) 5,000 Units Subcutaneous Q12H aspirin 81 mg Oral Daily metoprolol tartrate 12.5 mg Oral BID sodium chloride flush 10 mL Intravenous 2 times per day polyethylene glycol 17 g Oral Daily sennosides-docusate sodium 2 tablet Oral Nightly Continuous Infusions: dextrose Prn Meds : sodium chloride flush, guaiFENesin-dextromethorphan, acetaminophen, oxyCODONE-acetaminophen OR oxyCODONE-acetaminophen, melatonin, sodium chloride flush, calcium gluconate, ondansetron, potassium chloride, glucose, dextrose, glucagon (rDNA), dextrose Home Meds: No current facility-administered medications on file prior to encounter. Current Outpatient Medications on File Prior to Encounter Medication Sig Dispense Refill aspirin 81 MG EC tablet Take 81 mg by mouth daily clopidogrel (PLAVIX) 75 MG tablet Take 75 mg by mouth daily OBJECTIVE Physical BP (!) 117/58 Pulse 71 Temp 97.7 F (36.5 C) Resp 18 Ht 5' 10 (1.778 m) Wt 180 lb 1.9 oz (81.7 kg) SpO2 96% BMI 25.84 kg/m 24HR INTAKE/OUTPUT: Intake/Output Summary (Last 24 hours) at 04/11/2020 1723 Last data filed at 04/11/2020 0311 Gross per 24 hour Intake Output 325 ml Net -325 ml General: AAO x 3, speaking in full sentences, no accessory muscle use. HEENT: Atraumatic, normocephalic, no throat congestion, moist mucosa. Eyes: Pupils equal, round and reactive to light, EOMI. Neck: No JVD, no thyromegaly, no lymphadenopathy. Chest: Bilateral vesicular breath sounds, no rales or wheezes. Cardiac: S1 S2 RR, no murmurs, gallops or rubs, JVP not raised. Abdomen: Soft, non-tender, no masses or organomegaly, BS audible. : No suprapubic or flank tenderness. Neuro: AAO x 3, No FND. SKIN: No rashes, good skin turgor. Data Last 3 CMP: Recent Labs 04/09/2014304/10/202504/11/2047 NA 139 138 138 K 3.8 4.4 4.3 CL 98 100 103 CO2 32* 32* 29 BUN 54* 53* 51* CREATININE 1.73* 1.64* 1.57* CALCIUM 8.2* 7.8* 7.9* PROT 6.9 6.4 6.3 LABALBU 3.4* 3.1* 3.0* BILITOT 4.1* 3.1* 2.7* ALKPHOS 159* 126 119 AST 66* 73* 68* ALT 111* 110* 120* Last 3 CBC: Recent Labs 04/09/2014304/10/202504/11/208 WBC 18.3* 15.7* 14.3* RBC 2.70* 2.60* 2.76* HGB 8.4* 8.0* 8.6* HCT 25.3* 24.8* 26.4* MCV 93.6 95.6 95.7 MCH 31.0 30.8 31.4 MCHC 33.1 32.3 32.8 RDW 18.5* 18.5* 19.4* PLT 438 418 324 MPV 8.2 8.7 8.4 ASSESSMENT Patient Active Problem List Diagnosis Date Noted Severe malnutrition (HCC) 04/04/2020 Postoperative depression 04/01/2020 Other constipation 04/01/2020 Hyperbilirubinemia Postoperative anemia due to acute blood loss 03/28/2020 Consumptive coagulopathy (HCC) 03/28/2020 Paroxysmal atrial fibrillation (HCC) 03/28/2020 S/P CABG (coronary artery bypass graft) Stress hyperglycemia CAD in [place] artery 03/22/2020 Hypertension Hyperlipidemia Chronic kidney disease GERD (gastroesophageal reflux disease) Coronary artery disease involving [place] coronary artery of [place] heart with angina pectoris (HCC) ASSESSMENT/PLAN: ASHLEIGH likely prerenal CKD 3 baseline Scr 1.4 per outpatient records s/p CABGx3 ROTHMAN-LAD, SVG to RCA, SVG to Diag; Creatinine 1.57 Avoid nephrotoxins hypotension S/p lasix -hold alsix bp ok currently Cruz Salvador MD 04/11/2020 5:23 PM * Lorraine Burris, CUT LACE MACHINE OPERATOR - 04/11/2020 2:14 PM EDT Physical Therapy Attempted PT and pt declined due to being discharged. Will re-attempt tomorrow if discharge status changes. * Paul Lacey, STAPLE CUTTER - BAG TURNER - 04/11/2020 5:49 AM EDT Cardiothoracic Surgery Progress Note PATIENT NAME: Karen Kearns : 1940 (79 y.o.) TODAY'S DATE: 04/11/2020 Interval History: S/P CABG x3 on 03/26/20 w/return to OR for bleeding-POD#-16 04/09 - Positive CT chest and Abdomen for liver cyst and pleural effusion 04/09 Venous US positive for Study shows an acute deep vein thrombosis noted in the right peroneal veins and right gastrocnemius veins. 2. Study shows an acute superficial vein thrombosis noted in the left great saphenous vein. 3. 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 HENT: Negative for nosebleeds. Eyes: Negative for visual disturbance. Respiratory: Negative for cough, shortness of breath and wheezing. Cardiovascular: Negative for chest pain, palpitations and leg swelling. Gastrointestinal: Negative for abdominal pain, blood in stool, constipation, diarrhea, nausea and vomiting. Genitourinary: Negative for hematuria. Musculoskeletal: Negative for myalgias. Skin: Negative for rash. Neurological: Negative for dizziness and syncope. Hematological: Does not bruise/bleed easily. Psychiatric/Behavioral: Negative for dysphoric mood and suicidal ideas. Denies Depression Physical Exam Vitals signs reviewed. Constitutional: General: He is not in acute distress. Appearance: Normal appearance. He is well-developed. He is not diaphoretic. HENT: Head: Normocephalic and atraumatic. Mouth/Throat: Pharynx: No oropharyngeal exudate. Eyes: General: No scleral icterus. Right eye: No discharge. Left eye: No discharge. Pupils: Pupils are equal, round, and reactive to light. Neck: Musculoskeletal: Normal range of motion. Thyroid: No thyromegaly. Vascular: No JVD. Cardiovascular: Rate and Rhythm: Normal rate and regular rhythm. Chest Wall: PMI is not displaced. Pulses: Normal pulses. Heart sounds: Normal heart sounds. No murmur. No gallop. Pulmonary: Effort: No accessory muscle usage or respiratory distress. Breath sounds: Normal breath sounds. No wheezing or rales. Abdominal: General: Bowel sounds are normal. There is no distension or abdominal bruit. Palpations: Abdomen is soft. There is no shifting dullness or hepatomegaly. Tenderness: There is no abdominal tenderness. Musculoskeletal: Normal range of motion. General: No deformity. Skin: General: Skin is warm and dry. Findings: No rash. Neurological: Mental Status: He is alert and oriented to person, place, and time. Cranial Nerves: No cranial nerve deficit. Sensory: No sensory deficit. Psychiatric: Thought Content: Thought content normal. Surgical incisions dry and intact Assessment/Plan Patient Active Problem List Diagnosis Code Hypertension I10 Hyperlipidemia E78.5 Chronic kidney disease N18.9 GERD (gastroesophageal reflux disease) K21.9 Coronary artery disease involving [place] coronary artery of [place] heart with angina pectoris (HCC)I25.119 CAD in [place] artery I25.10 S/P CABG (coronary artery bypass graft) Z95.1 Stress hyperglycemia R73.9 Postoperative anemia due to acute blood loss D62 Consumptive coagulopathy (HCC) D65 Paroxysmal atrial fibrillation (HCC) I48.0 Hyperbilirubinemia E80.6 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, F32.9 Other constipation K59.09 Severe malnutrition (HCC) E43 MVCAD -Status post CABGx3 ROTHMAN-LAD, SVG to RCA, SVG to Diag; left leg EVH; with return to OR for bleedingon 03/26/20 - no-statin due to live abnorm- no LORNA due to lab abnormalities - plan thoracentisis right sided and the DC home later today Post op Pulm. Mgmt/Resp Failure: Pleural Effusion - - R thora today post left with 1100 Post op A fib: Remains NSR 70's. On amiodarone and BB for rate control Leukocytosis -resolving on antibiotic therapy Augmentin ASHLEIGH on CKD - stable Blood loss Anemia -HGB 8.6 today GI/DVT prophylaxis - PPI/SCD/Teds sq heparin Deconditioned -PT/OT until DC home with home healt package Blood Conservation Initiative Log: - 03/26 multiple Disclaimer ? INFORMED CONSENT:The nature and purpose of the proposed treatment or procedure have been discussed. The risks and benefits of the proposed treatment or procedures have been reviewed. Alternatives have been reviewed in addition to the risks and benefits of not receiving treatments or undergoing procedures. Pursuant to this discussion, the patient agrees to undergo the proposed treatment or procedure. ? Captured images seen in this note from are not a substitute for a comprehensive interpretation ofthe entire data set as reflected by the interpreting physician with regard to radiology, echocardiography, and other diagnostic images. ? This note may have been dictated using [employer] Practice Edition 2.6 and/or [employer] Voice Recognition Feature. The document was proofread, however unrecognized voice recognition material handling technician errors may be present. * Cruz Salvador MD - 04/10/2020 5:44 PM EDT [facility] Progress Note SUBJECTIVE: Karen Kearns is a 79 y.o. male who is being followed by nephrology for ASHLEIGH/CKD . Any overnight events - CABG 03/26/2020 Medications Scheduled Meds: furosemide 40 mg Oral Daily amoxicillin-clavulanate 1 tablet Oral 2 times per day amiodarone 200 mg Oral BID heparin (porcine) 5,000 Units Subcutaneous Q12H aspirin 81 mg Oral Daily metoprolol tartrate 12.5 mg Oral BID sodium chloride flush 10 mL Intravenous 2 times per day polyethylene glycol 17 g Oral Daily sennosides-docusate sodium 2 tablet Oral Nightly Continuous Infusions: dextrose Prn Meds : guaiFENesin-dextromethorphan, acetaminophen, oxyCODONE-acetaminophen OR oxyCODONE-acetaminophen, melatonin, sodium chloride flush, calcium gluconate, ondansetron, potassium chloride, glucose, dextrose, glucagon (rDNA), dextrose Home Meds: No current facility-administered medications on file prior to encounter. Current Outpatient Medications on File Prior to Encounter Medication Sig Dispense Refill pantoprazole (PROTONIX) 40 MG tablet Take 40 mg by mouth daily aspirin 81 MG EC tablet Take 81 mg by mouth daily ramipril (ALTACE) 10 MG capsule Take 10 mg by mouth daily clopidogrel (PLAVIX) 75 MG tablet Take 75 mg by mouth daily OBJECTIVE Physical BP (!) 111/56 Pulse 75 Temp 97.7 F (36.5 C) (Oral) Resp 18 Ht 5' 10 (1.778 m) Wt 180 lb 1.9 oz (81.7 kg) SpO2 93% BMI 25.84 kg/m 24HR INTAKE/OUTPUT: Intake/Output Summary (Last 24 hours) at 04/10/2020 1744 Last data filed at 04/10/2020 1400 Gross per 24 hour Intake 670 ml Output 1250 ml Net -580 ml General: AAO x 3, speaking in full sentences, no accessory muscle use. HEENT: Atraumatic, normocephalic, no throat congestion, moist mucosa. Eyes: Pupils equal, round and reactive to light, EOMI. Neck: No JVD, no thyromegaly, no lymphadenopathy. Chest: Bilateral vesicular breath sounds, no rales or wheezes. Cardiac: S1 S2 RR, no murmurs, gallops or rubs, JVP not raised. Abdomen: Soft, non-tender, no masses or organomegaly, BS audible. : No suprapubic or flank tenderness. Neuro: AAO x 3, No FND. SKIN: No rashes, good skin turgor. Data Last 3 CMP: Recent Labs 04/08/2010504/09/2014304/10/20 002 NA 136 139 138 K 3.7 3.8 4.4 CL 98 98 100 CO2 31* 32* 32* BUN 54* 54* 53* CREATININE 1.64* 1.73* 1.64* CALCIUM 7.9* 8.2* 7.8* PROT 6.2* 6.9 6.4 LABALBU 3.1* 3.4* 3.1* BILITOT 4.6* 4.1* 3.1* ALKPHOS 145* 159* 126 AST 57* 66* 73* ALT 86* 111* 110* Last 3 CBC: Recent Labs 04/08/2010404/09/2014304/10/20 0026 WBC 17.8* 18.3* 15.7* RBC 2.60* 2.70* 2.60* HGB 8.0* 8.4* 8.0* HCT 24.2* 25.3* 24.8* MCV 93.3 93.6 95.6 MCH 30.6 31.0 30.8 MCHC 32.8 33.1 32.3 RDW 17.7* 18.5* 18.5* PLT 358 438 418 MPV 8.3 8.2 8.7 ASSESSMENT Patient Active Problem List Diagnosis Date Noted Severe malnutrition (HCC) 04/04/2020 Postoperative depression 04/01/2020 Other constipation 04/01/2020 Hyperbilirubinemia Postoperative anemia due to acute blood loss 03/28/2020 Consumptive coagulopathy (HCC) 03/28/2020 Paroxysmal atrial fibrillation (HCC) 03/28/2020 S/P CABG (coronary artery bypass graft) Stress hyperglycemia CAD in [place] artery 03/22/2020 Hypertension Hyperlipidemia Chronic kidney disease GERD (gastroesophageal reflux disease) Coronary artery disease involving [place] coronary artery of [place] heart with angina pectoris (HCC) ASSESSMENT/PLAN: ASHLEIGH likely prerenal CKD 3 baseline Scr 1.4 per outpatient records s/p CABGx3 ROTHMAN-LAD, SVG to RCA, SVG to Diag; Creatinine 1.64 Avoid nephrotoxins hypotension S/p lasix 40 mg -hold alsix bp ok currently Cruz Salvador MD 04/10/2020 5:44 PM * Silviano Burris M - 04/10/2020 4:02 PM EDT Occupational Therapy Facility/Department: [facility] Daily Treatment Note NAME: Karen Kearns : 1940 Date of Service: 04/10/2020 Discharge Recommendations: 24 hour supervision or assist, Home with Home health OT Assessment Assessment: Pt is progressing well and is motivated to get back home with . Overall pt is at a sba level for ADLs and transfers. OT is recommending D/C to home with assist from PRN and home health OT with pt agreeable. REQUIRES OT FOLLOW UP: Yes Safety Devices Safety Devices in place: Yes Type of devices: All fall risk precautions in place;Call light within reach;Gait belt;Left in chair Patient Diagnosis(es): There were no encounter diagnoses. has a past medical history of Harmon's palsy, Chronic kidney disease, Diverticulosis of colon, GERD (gastroesophageal reflux disease), Hyperlipidemia, Hypertension, and Internal hemorrhoids. has a past surgical history that includes Rotator cuff repair (Right) and hernia repair. Restrictions Restrictions/Precautions Restrictions/Precautions: Fall Risk, Surgical Protocols, Weight Bearing Required Braces or Orthoses?: No Upper Extremity Weight Bearing Restrictions Other: sternal precautions Position Activity Restriction Sternal Precautions: No Pushing, No Pulling, 10# Lifting Restrictions Sternal Precautions: yes Other position/activity restrictions: able to recall 3/3 sternal precautions Subjective General Chart Reviewed: Yes Patient assessed for rehabilitation services?: Yes Family / Caregiver Present: No Subjective Subjective: Pt seated in recliner and agreeable to OT tx. Vital Signs Patient Currently in Pain: Denies Orientation Orientation Overall Orientation Status: Within Normal Limits Objective ADL Grooming: Stand by assistance(standing at sink) LE Dressing: Stand by assistance(4 point tech) Toileting: Stand by assistance Balance Sitting Balance: Independent Standing Balance: Stand by assistance Standing Balance Time: milady up to 6 mins with ADL tasks Functional Mobility Functional - Mobility Device: Rolling Walker Activity: To/from bathroom;Other Assist Level: Stand by assistance Toilet Transfers Toilet - Technique: Ambulating Equipment Used: Standard toilet Toilet Transfer: Stand by assistance Bed mobility Comment: NT due to pt being in recliner Transfers Sit to stand: Stand by assistance Stand to sit: Stand by assistance Plan Plan Times per week: 5 Plan weeks: 2 Current Treatment Recommendations: Strengthening, Balance Training, Endurance Training, Functional Mobility Training, Gait Training, Stair training, Pain Management, Safety Education & Training, Patient/Caregiver Education & Training, Equipment Evaluation, Education, & procurement, Self-Care / ADL, Home Management Training Plan Comment: cont OT tx per POC Goals Short term goals Time Frame for Short term goals: 2 weeks Short term goal 1: LBD mod indep-progressing Short term goal 2: toileting mod indep-progressing Short term goal 3: grooming at sink in FWW mod indep-progressing Short term goal 4: ADLs within sternal prec no cues-progressing Therapy Time Individual Concurrent Group Co-treatment Time In 1534 Time Out 1602 Minutes 28 Timed Code Treatment Minutes: 28 Minutes(1 ADL, 1 ACT) Silviano Burris * Lorraine Burris, CUT LACE MACHINE OPERATOR - 04/10/2020 1:41 PM EDT Physical Therapy Facility/Department: [facility] Daily Treatment Note NAME: Karen Kearns : 1940 Date of Service: 04/10/2020 Discharge Recommendations: 24 hour supervision or assist, Home with Home health PT PT Equipment Recommendations Equipment Needed: Yes Mobility Devices: Walker Walker: Rolling Assessment Body structures, Functions, Activity limitations: Decreased functional mobility ;Decreased endurance;Decreased strength;Increased pain Assessment: Pt present with the above deficits requiring mod assist for bed mobility, supervision for transfer and SBA/CGA for gait. Pt compliant with sternal precautions. Rec home with 24hr assist with home PT upon discharge. REQUIRES PT FOLLOW UP: Yes Activity Tolerance Activity Tolerance: Patient limited by endurance Patient Diagnosis(es): There were no encounter diagnoses. has a past medical history of Harmon's palsy, Chronic kidney disease, Diverticulosis of colon, GERD (gastroesophageal reflux disease), Hyperlipidemia, Hypertension, and Internal hemorrhoids. has a past surgical history that includes Rotator cuff repair (Right) and hernia repair. Restrictions Restrictions/Precautions Restrictions/Precautions: Fall Risk, Surgical Protocols, Weight Bearing Required Braces or Orthoses?: No Upper Extremity Weight Bearing Restrictions Other: sternal precautions Position Activity Restriction Sternal Precautions: No Pushing, No Pulling, 10# Lifting Restrictions Sternal Precautions: yes Other position/activity restrictions: . Subjective General Chart Reviewed: Yes Family / Caregiver Present: No Subjective Subjective: Pt in bed, HOB elevated and agreeable to PT. General Comment Comments: *This CUT LACE MACHINE OPERATOR wore N95, gloves and goggles throughout pt encounter. Pain Screening Patient Currently in Pain: Yes Pain Assessment Pain Assessment: 0-10 Pain Level: 5 Pain Type: Surgical pain;Acute pain Pain Location: Incision Pain Orientation: Right Vital Signs Patient Currently in Pain: Yes Objective Bed mobility Supine to Sit: Moderate assistance(for trunk elevation) Scooting: Stand by assistance(seated towards EOB) Comment: HOB elevated. Transfers Sit to Stand: Supervision Stand to sit: Supervision Comment: x1 from EOB Ambulation Ambulation?: Yes WB Status: sternal precautions More Ambulation?: No Ambulation 1 Surface: level tile Device: Rolling Walker Assistance: Contact guard assistance;Stand by assistance Gait Deviations: Decreased step length;Decreased step height;Slow Rosa Distance: 70ft x2; 3 standing rest breaks Comments: Pt most limited by decreased endurance Stairs/Curb Stairs?: No Exercises Upper Extremity: P&C ex #1-9 all x 10 reps each. AM-PAC Score Goals Short term goals Time Frame for Short term goals: 2 weeks Short term goal 1: bed mobility min. assist-progressing Short term goal 2: Sit to stand transfer supervision with out cues for sternal precautions; Goal updated; progressing Short term goal 3: ambulate 150 ft, with least restrictive device or no device and standby. assist;Goal updated; progressing Short term goal 4: supervision with P&C ex, IS, secretion clearance and understanding of walking program.- progressing Short term goal 5: Curb step, mod of 1-not addressed Patient Goals Patient goals : Return home Plan Plan Times per week: 5-6x/wk Times per day: Daily Plan weeks: 2 weeks Current Treatment Recommendations: Strengthening, Transfer Training, Balance Training, Gait Training, Functional Mobility Training, Home Exercise Program, Endurance Training Plan Comment: Chest PT Safety Devices Type of devices: Left in chair, Call light within reach, All fall risk precautions in place, Nurse notified Restraints Initially in place: No Therapy Time Individual Concurrent Group Co-treatment Time In [facility] Time Out 1341 Minutes 19 Timed Code Treatment Minutes: 19 Minutes(fa) Lorraine Burris PTA * Misa Angeles RD, LD - 04/10/2020 1:01 PM EDT Comprehensive Nutrition Assessment Type and Reason for Visit: Reassess Nutrition Recommendations/Plan: 1. Continue general diet 2. Per MNT protocol, will modify ONS to Ensure Enlive BID (350kcal, 20g protein, 8oz each), d/c Magic Cup per pt preference 3. Will continue to monitor and follow up weekly Nutrition Assessment: Pt remains on HLU s/p CABG x3 with takeback for bleeding on 03/26. Extubated 03/30. [employer]ICE MECH[employer]IC following for dysphagia. Slowly improving appetite. 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 Pt continues to endorse poor appetite, however decribes eating an adequate breakfast despite this (2 larson, 2 sausage, a muffin, OJ, pretty much completely consumed). He states he doesn't care ofr the Magic Cups, is tolerating Ensures much better -will modify ONS accordingly. Malnutrition Assessment: Malnutrition Status: Severe malnutrition Context: Acute Illness Findings of the 6 clinical characteristics of malnutrition: Energy Intake: 7 - 50% or less of estimated energy requirements for 5 or more days Weight Loss: Unable to assess Body Fat Loss: 7 - Moderate body fat loss Orbital, Buccal region Muscle Mass Loss: 7 - Moderate muscle mass loss Temples (temporalis) Estimated Daily Nutrient Needs: Energy (kcal): 1451-7985; Weight Used for Energy Requirements: [place] Protein (g): 91-106; Weight Used for Protein Requirements: [place](1.2-.14g/kg) Fluid (ml/day): Per MD; Method Used for Fluid Requirements: (N/A) Nutrition Related Findings: -I/O (~5.4L). Trace generalized edema. Active bowel sounds. Guillermo=19. Labs and meds reviewed. BMP: Recent Labs 04/08/20 0106 04/09/20 0144 04/10/20 0026 04/10/20 0645 NA 136 139 138 -- K 3.7 3.8 4.4 -- CL 98 98 100 -- CO2 31* 32* 32* -- BUN 54* 54* 53* -- CREATININE 1.64* 1.73* 1.64* -- GLUCOSE 127* 125* 120* -- CALCIUM 7.9* 8.2* 7.8* -- IONCA -- -- -- 4.30 Wounds: Multiple, Surgical Wound Current Nutrition Therapies: DIET GENERAL; Dietary Nutrition Supplements: Frozen Oral Supplement Dietary Nutrition Supplements: Standard High Calorie Oral Supplement Anthropometric Measures: Height: 5' 10 (177.8 cm) Current Body Weight: 180 lb 1.9 oz (81.7 kg) Admission Body Weight: 182 lb (82.6 kg)(182# via standing scale documented on 03/21. 188# per pt) Usual Body Weight: (no weight hx) [place] Body Weight: 166 lbs; % [place] Body Weight 99.9 % BMI: 25.8 Adjusted Body Weight: ; No Adjustment BMI Categories: Overweight (BMI 25.0-29.9) Nutrition Diagnosis: Severe malnutrition, In context of acute illness or injury related to inadequate protein-energy intake as evidenced by moderate muscle loss, moderate loss of subcutaneous fat(energy intake <50% estimated needs for > 5 days) Nutrition Interventions: Food and/or Nutrient Delivery: Continue Current Diet, Modify Oral Nutrition Supplement Nutrition Education/Counseling: Education initiated Coordination of Nutrition Care: Continued Inpatient Monitoring Goals: Pt will consume >50% at meals and ONS Nutrition Monitoring and Evaluation: Behavioral-Environmental Outcomes: Beliefs and Attitutes Food/Nutrient Intake Outcomes: Diet Advancement/Tolerance, Food and Nutrient Intake, Supplement Intake Physical Signs/Symptoms Outcomes: Biochemical Data, GI Status, Fluid Status or Edema, Nutrition Focused Physical Findings, Skin, Weight Discharge Planning: Continue Oral Nutrition Supplement Contact: pager [phone] * Paul Lacey APRN - [facility] - 04/10/2020 6:26 AM EDT Cardiothoracic Surgery Progress Note PATIENT NAME: Karen Kearns : 1940 (79 y.o.) TODAY'S DATE: 04/10/2020 Interval History: S/P CABG x3 on 03/26/20 w/return to OR for bleeding-POD#-15 04/09 - Positive CT chest and Abdomen for liver cyst and pleural effusion 04/09 Venous US positive for Study shows an acute deep vein thrombosis noted in the right peroneal veins and right gastrocnemius veins. 2. Study shows an acute superficial vein thrombosis noted in the left great saphenous vein. 3. 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 Doing well overnight thoracentesis today US guided - started on Augmentin - WBC headed in the rightdirection HGB 8.0 creat stable Last recorded/verified vitals in [facility] Temp: 98.2 F (36.8 C) Pulse: 69 BP: (!) 126/57 Resp: 18 SpO2: 93 % Recent Labs 04/08/20 0105 04/08/20 0106 04/09/20 0144 04/10/20 0026 WBC 17.8* -- 18.3* 15.7* HGB 8.0* -- 8.4* 8.0* PLT 358 -- 438 418 NA -- 136 139 138 K -- 3.7 3.8 4.4 CREATININE -- 1.64* 1.73* 1.64* CXR [x] Current Medications, pmHx, Allergies, and sHx reviewed and updated as appropriate Review of Systems Constitutional: Negative for chills, diaphoresis and fever. HENT: Negative for nosebleeds. Eyes: Negative for visual disturbance. Respiratory: Negative for cough, shortness of breath and wheezing. Cardiovascular: Negative for chest pain, palpitations and leg swelling. Gastrointestinal: Negative for abdominal pain, blood in stool, constipation, diarrhea, nausea and vomiting. Genitourinary: Negative for hematuria. Musculoskeletal: Negative for myalgias. Skin: Negative for rash. Neurological: Negative for dizziness and syncope. Hematological: Does not bruise/bleed easily. Psychiatric/Behavioral: Negative for dysphoric mood and suicidal ideas. Denies Depression Physical Exam Vitals signs reviewed. Constitutional: General: He is not in acute distress. Appearance: Normal appearance. He is well-developed. He is not diaphoretic. HENT: Head: Normocephalic and atraumatic. Mouth/Throat: Pharynx: No oropharyngeal exudate. Eyes: General: No scleral icterus. Right eye: No discharge. Left eye: No discharge. Pupils: Pupils are equal, round, and reactive to light. Neck: Musculoskeletal: Normal range of motion. Thyroid: No thyromegaly. Vascular: No JVD. Cardiovascular: Rate and Rhythm: Normal rate and regular rhythm. Chest Wall: PMI is not displaced. Pulses: Normal pulses. Heart sounds: Normal heart sounds. No murmur. No gallop. Pulmonary: Effort: No accessory muscle usage or respiratory distress. Breath sounds: Normal breath sounds. No wheezing or rales. Abdominal: General: Bowel sounds are normal. There is no distension or abdominal bruit. Palpations: Abdomen is soft. There is no shifting dullness or hepatomegaly. Tenderness: There is no abdominal tenderness. Musculoskeletal: Normal range of motion. General: No deformity. Skin: General: Skin is warm and dry. Findings: No rash. Neurological: Mental Status: He is alert and oriented to person, place, and time. Cranial Nerves: No cranial nerve deficit. Sensory: No sensory deficit. Psychiatric: Thought Content: Thought content normal. 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 Mgmt/Resp Failure: Pleural Effusion - - will plan US thoracentesis today and send collection for cultures Post op A fib: Remains NSR 70's. On amiodarone and BB for rate control Hyperbilirubinemia: - GI signed off. Resolving DC lab draws Leukocytosis -resolving on antibiotic therapy ASHLEIGH on CKD - base 1.4 - today 1.6 Blood loss Anemia -HGB 8.4 today Poor intake/Dysphagia - followed by speech GI/DVT prophylaxis - PPI/SCD/Teds sq heparin Deconditioned -PT/OT rec rehab facility Blood Conservation Initiative Log: - 03/26 multiple Disposition waiting for US guided thoracentesis Liver Cyst is chronic will treat pleaural effusion with Augmentin for 14 day course Disclaimer ? INFORMED CONSENT:The nature and purpose of the proposed treatment or procedure have been discussed. The risks and benefits of the proposed treatment or procedures have been reviewed. Alternatives have been reviewed in addition to the risks and benefits of not receiving treatments or undergoing procedures. Pursuant to this discussion, the patient agrees to undergo the proposed treatment or procedure. ? Captured images seen in this note from are not a substitute for a comprehensive interpretation ofthe entire data set as reflected by the interpreting physician with regard to radiology, echocardiography, and other diagnostic images. ? This note may have been dictated using [employer] Practice Edition 2.6 and/or [employer] Voice Recognition Feature. The document was proofread, however unrecognized voice recognition material handling technician errors may be present. * Cruz Salvador MD - 04/09/2020 3:40 PM EDT [facility] Progress Note SUBJECTIVE: Karen Kearns is a 79 y.o. male who is being followed by nephrology for ASHLEIGH/CKD . Any overnight events - CABG 03/26/2020 Medications Scheduled Meds: furosemide 40 mg Oral Daily amiodarone 200 mg Oral BID heparin (porcine) 5,000 Units Subcutaneous Q12H aspirin 81 mg Oral Daily metoprolol tartrate 12.5 mg Oral BID sodium chloride flush 10 mL Intravenous 2 times per day polyethylene glycol 17 g Oral Daily sennosides-docusate sodium 2 tablet Oral Nightly Continuous Infusions: dextrose Prn Meds : guaiFENesin-dextromethorphan, acetaminophen, oxyCODONE-acetaminophen OR oxyCODONE-acetaminophen, melatonin, sodium chloride flush, calcium gluconate, ondansetron, potassium chloride, glucose, dextrose, glucagon (rDNA), dextrose Home Meds: No current facility-administered medications on file prior to encounter. Current Outpatient Medications on File Prior to Encounter Medication Sig Dispense Refill pantoprazole (PROTONIX) 40 MG tablet Take 40 mg by mouth daily aspirin 81 MG EC tablet Take 81 mg by mouth daily ramipril (ALTACE) 10 MG capsule Take 10 mg by mouth daily clopidogrel (PLAVIX) 75 MG tablet Take 75 mg by mouth daily OBJECTIVE Physical BP (!) 136/54 Pulse 77 Temp 98.2 F (36.8 C) (Oral) Resp 20 Ht 5' 10 (1.778 m) Wt 184 lb 1.4 oz (83.5 kg) SpO2 93% BMI 26.41 kg/m 24HR INTAKE/OUTPUT: Intake/Output Summary (Last 24 hours) at 04/09/2020 1541 Last data filed at 04/09/2020 0622 Gross per 24 hour Intake Output 825 ml Net -825 ml General: AAO x 3, speaking in full sentences, no accessory muscle use. HEENT: Atraumatic, normocephalic, no throat congestion, moist mucosa. Eyes: Pupils equal, round and reactive to light, EOMI. Neck: No JVD, no thyromegaly, no lymphadenopathy. Chest: Bilateral vesicular breath sounds, no rales or wheezes. Cardiac: S1 S2 RR, no murmurs, gallops or rubs, JVP not raised. Abdomen: Soft, non-tender, no masses or organomegaly, BS audible. : No suprapubic or flank tenderness. Neuro: AAO x 3, No FND. SKIN: No rashes, good skin turgor. Data Last 3 CMP: Recent Labs 04/07/20 0129 04/08/20 0106 04/09/20 0144 NA 139 136 139 K 4.0 3.7 3.8 CL 99 98 98 CO2 30 31* 32* BUN 52* 54* 54* CREATININE 1.65* 1.64* 1.73* CALCIUM 8.2* 7.9* 8.2* PROT 6.4 6.2* 6.9 LABALBU 3.2* 3.1* 3.4* BILITOT 5.5* 4.6* 4.1* ALKPHOS 164* 145* 159* AST 51* 57* 66* ALT 84* 86* 111* Last 3 CBC: Recent Labs 04/07/20 0132 04/08/20 0105 04/09/20 0144 WBC 17.7* 17.8* 18.3* RBC 2.66* 2.60* 2.70* HGB 8.1* 8.0* 8.4* HCT 24.8* 24.2* 25.3* MCV 93.3 93.3 93.6 MCH 30.6 30.6 31.0 MCHC 32.7 32.8 33.1 RDW 17.9* 17.7* 18.5* PLT 331 358 438 MPV 8.7 8.3 8.2 ASSESSMENT Patient Active Problem List Diagnosis Date Noted Severe malnutrition (HCC) 04/04/2020 Postoperative depression 04/01/2020 Other constipation 04/01/2020 Hyperbilirubinemia Postoperative anemia due to acute blood loss 03/28/2020 Consumptive coagulopathy (HCC) 03/28/2020 Paroxysmal atrial fibrillation (HCC) 03/28/2020 S/P CABG (coronary artery bypass graft) Stress hyperglycemia CAD in [place] artery 03/22/2020 Hypertension Hyperlipidemia Chronic kidney disease GERD (gastroesophageal reflux disease) Coronary artery disease involving [place] coronary artery of [place] heart with angina pectoris (HCC) ASSESSMENT/PLAN: ASHLEIGH likely prerenal CKD 3 baseline Scr 1.4 per outpatient records s/p CABGx3 ROTHMAN-LAD, SVG to RCA, SVG to Diag; Creatinine 1.73 Avoid nephrotoxins hypotension S/p lasix 40 mg -hold alsix bp ok currently Cruz Salvador MD 04/09/2020 3:41 PM * Lorraine Burris, CUT LACE MACHINE OPERATOR - 04/09/2020 1:32 PM EDT Physical Therapy Facility/Department: [facility] Daily Treatment Note NAME: Karen Kearns : 1940 Date of Service: 04/09/2020 Discharge Recommendations: 24 hour supervision or assist, Home with Home health PT PT Equipment Recommendations Equipment Needed: Yes Mobility Devices: Walker Walker: Rolling Assessment Body structures, Functions, Activity limitations: Decreased functional mobility ;Decreased endurance;Decreased strength;Decreased balance Assessment: Pt present with the above deficits. Pt continues to progress towards goals. He is most limited by decreased endurance. Compliant with sternal precautions. Encouraged pt to increased reps/sets with P&C exercises and I.S.. Consulting with Jesi Gamino PT with change in rec to home [id number] assist and home PT upon discharge. REQUIRES PT FOLLOW UP: Yes Activity Tolerance Activity Tolerance: Patient limited by fatigue;Patient limited by endurance Patient Diagnosis(es): There were no encounter diagnoses. has a past medical history of Harmon's palsy, Chronic kidney disease, Diverticulosis of colon, GERD (gastroesophageal reflux disease), Hyperlipidemia, Hypertension, and Internal hemorrhoids. has a past surgical history that includes Rotator cuff repair (Right) and hernia repair. Restrictions Restrictions/Precautions Restrictions/Precautions: Fall Risk, Surgical Protocols, Weight Bearing Required Braces or Orthoses?: No Upper Extremity Weight Bearing Restrictions Other: sternal precautions Position Activity Restriction Sternal Precautions: No Pushing, No Pulling, 10# Lifting Restrictions Sternal Precautions: yes Other position/activity restrictions: . Subjective General Chart Reviewed: Yes Family / Caregiver Present: No Subjective Subjective: Pt in bed, HOB elevated and agreeable to PT. RN cleared pt for therapy. General Comment Comments: *This CUT LACE MACHINE OPERATOR wore N95, gloves and goggles throughout pt encounter. Pain Screening Patient Currently in Pain: Denies Objective Bed mobility Supine to Sit: Minimal assistance(for trunk elevation) Scooting: Stand by assistance(seated towards EOB) Comment: HOB elevated. Pt compliant with sternal precautions. Transfers Sit to Stand: Stand by assistance Stand to sit: Stand by assistance Comment: x1 from EOB. Ambulation Ambulation?: Yes WB Status: sternal precautions More Ambulation?: No Ambulation 1 Surface: level tile Device: Rolling Walker Assistance: Contact guard assistance Gait Deviations: Decreased step length;Decreased step height Distance: 60ft x 2 Comments: Pt with improved balance. Most limited by SOBOE. Cues for pursed lip breathing. Stairs/Curb Stairs?: No Exercises Upper Extremity: P&C ex #1-9 all x 10 reps each. Other exercises Other exercises 1: I.S. x 10 reps, 500mL AM-PAC Score Goals Short term goals Time Frame for Short term goals: 2 weeks Short term goal 1: bed mobility min. assist-progressing Short term goal 2: Sit to stand transfer supervision with out cues for sternal precautions; Goal updated; progressing Short term goal 3: ambulate 150 ft, with least restrictive device or no device and standby. assist;Goal updated; progressing Short term goal 4: supervision with P&C ex, IS, secretion clearance and understanding of walking program.- progressing Short term goal 5: Curb step, mod of 1-not addressed Patient Goals Patient goals : Return home Plan Plan Times per week: 5-6x/wk Times per day: Daily Plan weeks: 2 weeks Current Treatment Recommendations: Strengthening, Transfer Training, Balance Training, Gait Training, Functional Mobility Training, Home Exercise Program, Endurance Training Plan Comment: Chest PT Safety Devices Type of devices: Left in chair, Call light within reach, All fall risk precautions in place Restraints Initially in place: No Therapy Time Individual Concurrent Group Co-treatment Time In 1130 Time Out 1142 Minutes 12 Timed Code Treatment Minutes: 12 Minutes(fa) Lorraine Burris CUT LACE MACHINE OPERATOR * Paul Lacey, STAPLE CUTTER - BAG TURNER - 04/09/2020 6:03 AM EDT Cardiothoracic Surgery Progress Note PATIENT NAME: Karen Kearns : 1940 (79 y.o.) TODAY'S DATE: 04/09/2020 Interval History: S/P CABG x3 on 03/26/20 w/return to OR for bleeding-POD#-14 Doing well overnight - WBC still climbing - possible consider thoracentesis today - PT/OT day - possible DC tomorrow - consider rehab facility pt still very weak - change lasix to PO today as well in-nacurate I&O Last recorded/verified vitals in [facility] Temp: 98.8 F (37.1 C) Pulse: 71 BP: (!) 125/53 Resp: 16 SpO2: 94 % Recent Labs 04/07/20 0129 04/07/20 0132 04/08/20 0105 04/08/20 0106 04/09/20 0144 WBC -- 17.7* 17.8* -- 18.3* HGB -- 8.1* 8.0* -- 8.4* PLT -- 331 358 -- 438 NA 139 -- -- 136 139 K 4.0 -- -- 3.7 3.8 CREATININE 1.65* -- -- 1.64* 1.73* CXR [x] Current Medications, pmHx, Allergies, and sHx reviewed and updated as appropriate Review of Systems Constitutional: Negative for chills, diaphoresis and fever. HENT: Negative for nosebleeds. Eyes: Negative for visual disturbance. Respiratory: Negative for cough, shortness of breath and wheezing. Cardiovascular: Negative for chest pain, palpitations and leg swelling. Gastrointestinal: Negative for abdominal pain, blood in stool, constipation, diarrhea, nausea and vomiting. Genitourinary: Negative for hematuria. Musculoskeletal: Negative for myalgias. Skin: Negative for rash. Neurological: Negative for dizziness and syncope. Hematological: Does not bruise/bleed easily. Psychiatric/Behavioral: Negative for dysphoric mood and suicidal ideas. Denies Depression Physical Exam Vitals signs reviewed. Constitutional: General: He is not in acute distress. Appearance: Normal appearance. He is well-developed. He is not diaphoretic. HENT: Head: Normocephalic and atraumatic. Mouth/Throat: Pharynx: No oropharyngeal exudate. Eyes: General: No scleral icterus. Right eye: No discharge. Left eye: No discharge. Pupils: Pupils are equal, round, and reactive to light. Neck: Musculoskeletal: Normal range of motion. Thyroid: No thyromegaly. Vascular: No JVD. Cardiovascular: Rate and Rhythm: Normal rate and regular rhythm. Chest Wall: PMI is not displaced. Pulses: Normal pulses. Heart sounds: Normal heart sounds. No murmur. No gallop. Pulmonary: Effort: No accessory muscle usage or respiratory distress. Breath sounds: Normal breath sounds. No wheezing or rales. Abdominal: General: Bowel sounds are normal. There is no distension or abdominal bruit. Palpations: Abdomen is soft. There is no shifting dullness or hepatomegaly. Tenderness: There is no abdominal tenderness. Musculoskeletal: Normal range of motion. General: No deformity. Skin: General: Skin is warm and dry. Findings: No rash. Neurological: Mental Status: He is alert and oriented to person, place, and time. Cranial Nerves: No cranial nerve deficit. Sensory: No sensory deficit. Psychiatric: Thought Content: Thought content normal. 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 Mgmt/Resp Failure: - consider thoracentesis today Post op A fib: Remains NSR 70's. On amiodarone and BB for rate control Hyperbilirubinemia: - GI signed off. Resolving DC lab draws Leukocytosis -WBC 18.3 ASHLEIGH on CKD - base 1.4 - today 1.7 may be new baseline Blood loss Anemia -HGB 8.4 today Poor intake/Dysphagia - followed by speech Depressed mood - resolving Acute post op pain - controlled on current meds GI/DVT prophylaxis - PPI/SCD/Teds sq heparin Deconditioned -PT/OT rec rehab facility Disposition - likely home earliest later today Blood Conservation Initiative Log: - 03/26 multiple Disclaimer ? INFORMED CONSENT:The nature and purpose of the proposed treatment or procedure have been discussed. The risks and benefits of the proposed treatment or procedures have been reviewed. Alternatives have been reviewed in addition to the risks and benefits of not receiving treatments or undergoing procedures. Pursuant to this discussion, the patient agrees to undergo the proposed treatment or procedure. ? Captured images seen in this note from are not a substitute for a comprehensive interpretation ofthe entire data set as reflected by the interpreting physician with regard to radiology, echocardiography, and other diagnostic images. ? This note may have been dictated using Dragon Medical Practice Edition 2.6 and/or Stemnion Voice Recognition Feature. The document was proofread, however unrecognized voice recognition material handling technician errors may be present. * Cruz Salvador MD - 04/08/2020 12:48 PM EDT [facility] Progress Note SUBJECTIVE: Karen Kearns is a 79 y.o. male who is being followed by nephrology for ASHLEIGH/CKD . Any overnight events - CABG 03/26/2020 Medications Scheduled Meds: furosemide 40 mg Oral BID amiodarone 200 mg Oral BID heparin (porcine) 5,000 Units Subcutaneous Q12H aspirin 81 mg Oral Daily metoprolol tartrate 12.5 mg Oral BID sodium chloride flush 10 mL Intravenous 2 times per day polyethylene glycol 17 g Oral Daily sennosides-docusate sodium 2 tablet Oral Nightly Continuous Infusions: dextrose Prn Meds : guaiFENesin-dextromethorphan, acetaminophen, oxyCODONE-acetaminophen OR oxyCODONE-acetaminophen, melatonin, sodium chloride flush, calcium gluconate, ondansetron, potassium chloride, glucose, dextrose, glucagon (rDNA), dextrose Home Meds: No current facility-administered medications on file prior to encounter. Current Outpatient Medications on File Prior to Encounter Medication Sig Dispense Refill pantoprazole (PROTONIX) 40 MG tablet Take 40 mg by mouth daily aspirin 81 MG EC tablet Take 81 mg by mouth daily ramipril (ALTACE) 10 MG capsule Take 10 mg by mouth daily clopidogrel (PLAVIX) 75 MG tablet Take 75 mg by mouth daily OBJECTIVE Physical BP (!) 116/57 Pulse 77 Temp 98.1 F (36.7 C) Resp 20 Ht 5' 10 (1.778 m) Wt 184 lb 1.4 oz (83.5 kg) SpO2 92% BMI 26.41 kg/m 24HR INTAKE/OUTPUT: Intake/Output Summary (Last 24 hours) at 04/08/2020 1248 Last data filed at 04/08/2020 0800 Gross per 24 hour Intake 1020 ml Output 2250 ml Net -1230 ml General: AAO x 3, speaking in full sentences, no accessory muscle use. HEENT: Atraumatic, normocephalic, no throat congestion, moist mucosa. Eyes: Pupils equal, round and reactive to light, EOMI. Neck: No JVD, no thyromegaly, no lymphadenopathy. Chest: Bilateral vesicular breath sounds, no rales or wheezes. Cardiac: S1 S2 RR, no murmurs, gallops or rubs, JVP not raised. Abdomen: Soft, non-tender, no masses or organomegaly, BS audible. : No suprapubic or flank tenderness. Neuro: AAO x 3, No FND. SKIN: No rashes, good skin turgor. Data Last 3 CMP: Recent Labs 04/06/20 0031 04/07/20 0129 04/08/20 0106 NA 137 139 136 K 3.6 4.0 3.7 CL 100 99 98 CO2 32* 30 31* BUN 56* 52* 54* CREATININE 1.66* 1.65* 1.64* CALCIUM 7.6* 8.2* 7.9* PROT 6.1* 6.4 6.2* LABALBU 3.0* 3.2* 3.1* BILITOT 5.4* 5.5* 4.6* ALKPHOS 154* 164* 145* AST 55* 51* 57* ALT 81* 84* 86* Last 3 CBC: Recent Labs 04/06/201 04/07/20 0132 04/08/20 0105 WBC 15.2* 17.7* 17.8* RBC 2.61* 2.66* 2.60* HGB 8.0* 8.1* 8.0* HCT 24.2* 24.8* 24.2* MCV 92.6 93.3 93.3 MCH 30.6 30.6 30.6 MCHC 33.0 32.7 32.8 RDW 17.3* 17.9* 17.7* PLT 293 331 358 MPV 9.0 8.7 8.3 ASSESSMENT Patient Active Problem List Diagnosis Date Noted Severe malnutrition (HCC) 04/04/2020 Postoperative depression 04/01/2020 Other constipation 04/01/2020 Hyperbilirubinemia Postoperative anemia due to acute blood loss 03/28/2020 Consumptive coagulopathy (HCC) 03/28/2020 Paroxysmal atrial fibrillation (HCC) 03/28/2020 S/P CABG (coronary artery bypass graft) Stress hyperglycemia CAD in [place] artery 03/22/2020 Hypertension Hyperlipidemia Chronic kidney disease GERD (gastroesophageal reflux disease) Coronary artery disease involving [place] coronary artery of [place] heart with angina pectoris (HCC) ASSESSMENT/PLAN: ASHLEIGH likely prerenal CKD 3 baseline Scr 1.4 per outpatient records s/p CABGx3 ROTHMAN-LAD, SVG to RCA, SVG to Diag; Creatinine 1.64 Avoid nephrotoxins hypotension S/p lasix 40 mg bp ok currently Cruz Salvador MD 04/08/2020 12:48 PM * Kael Kearns APRN - CNS - 04/08/2020 12:43 PM EDT Cardiothoracic Interval Progress Note 1. Paged by RN with preliminary results of venous dopplers of lower extremities . 2. Positive for DVT right leg and superficial clot on left leg in remainder of harvest vein. 3. Dr. Miller made aware. Will wait for final results if superficial then won't treat. 4. Possible plan for thoracentesis tomorrow (so if OAC started would need held for procedure) * Silviano Burris - 04/08/2020 10:15 AM EDT Occupational Therapy Pt politely declined OT services at this time due to fatigue from just being up with RN for ambulation and toileting. Will re-attempt OT as schedule permits. * Kael Kearns APRN - CNS - 04/08/2020 6:31 AM EDT Cardiothoracic Surgery Progress Note 04/08/2020 Subjective: Admit Date: 03/21/2020 Interval History: S/P CABG x3 on 03/26/20 w/return to OR for bleeding-POD#-13 No issues over night. Subjective: Up in chair. States didn't sleep much last night. States food is good just doesn't really want it but makes sure he drinks Ensure Objective: Vitals: Temp (24hrs), Av.6 F (37 C), Min:98.5 F (36.9 C), Max:98.7 F (37.1 C) BP (!) 114/55 Pulse 71 Temp 98.6 F (37 C) (Oral) Resp 18 Ht 5' 10 (1.778 m) Wt 184 lb 1.4 oz (83.5 kg) SpO2 98% BMI 26.41 kg/m I/O: +BM Date 04/08/20 0000 - 04/08/202358 Shift 6190-8060 0314-7653 7803-7956 24 Hour Total INTAKE Shift Total(mL/kg) OUTPUT Urine(mL/kg/hr) 950 950 Shift Total(mL/kg) 950(11.4) 950(11.4) Weight (kg) 83.5 83.5 83.5 83.5 Weights: Patient Vitals for the past 96 hrs (Last 3 readings): Weight 04/07/20 0600 184 lb 1.4 oz (83.5 kg) 04/06/20 0000 182 lb 12.2 oz (82.9 kg) 04/05/20 0500 187 lb 6.4 oz (85 kg) Labs: BMP: Recent Labs 04/06/20 0031 04/07/2012804/08/20 010 NA 137 139 136 K 3.6 4.0 3.7 CL 100 99 98 CO2 32* 30 31* BUN 56* 52* 54* CREATININE 1.66* 1.65* 1.64* GLUCOSE 128* 134* 127* . CBC: Recent Labs 04/06/20 0031 04/07/20 0132 04/08/20 0105 WBC 15.2* 17.7* 17.8* RBC 2.61* 2.66* 2.60* HGB 8.0* 8.1* 8.0* HCT 24.2* 24.8* 24.2* MCV 92.6 93.3 93.3 MCH 30.6 30.6 30.6 MCHC 33.0 32.7 32.8 RDW 17.3* 17.9* 17.7* PLT 293 331 358 MPV 9.0 8.7 8.3 Hepatic: Recent Labs 04/07/2012804/08/20 0106 AST 51* 57* ALT 84* 86* BILITOT 5.5* 4.6* ALKPHOS 164* 145* INR: Lab Results Component Value Date PROTIME 13.0 03/29/2020 INR 1.2 03/29/2020 Physical Exam: Physical Exam Constitutional: General: He is not in acute distress. Appearance: Normal appearance. He is well-developed. He is not diaphoretic. HENT: Head: Normocephalic and atraumatic. Nose: Nose normal. Mouth/Throat: Mouth: Mucous membranes are moist. Eyes: Pupils: Pupils are equal, round, and reactive to light. Neck: Musculoskeletal: Normal range of motion and neck supple. Vascular: No JVD. Cardiovascular: Rate and Rhythm: Normal rate and regular rhythm. Pulses: Dorsalis pedis pulses are 2+ on the right side and 2+ on the left side. Heart sounds: Normal heart sounds, S1 normal and S2 normal. No murmur. No friction rub. No gallop. Pulmonary: Effort: Pulmonary effort is normal. No respiratory distress. Breath sounds: No stridor. No rales. Abdominal: General: Bowel sounds are normal. There is no distension. Palpations: Abdomen is soft. Tenderness: There is no abdominal tenderness. Musculoskeletal: Normal range of motion. General: No tenderness. Skin: General: Skin is warm and dry. Coloration: Skin is jaundiced. Comments: Sternotomy incision intact with no signs of infection. Left EVH sites intact with no signs of infection. Inner thigh ecchymotic Neurological: Mental Status: He is alert and oriented to person, place, and time. Psychiatric: Mood and Affect: Mood normal. Behavior: Behavior normal. Thought Content: Thought content normal. Judgment: Judgment normal. Medications: Scheduled Meds: furosemide 40 mg Oral BID amiodarone 200 mg Oral BID heparin (porcine) 5,000 Units Subcutaneous Q12H aspirin 81 mg Oral Daily metoprolol tartrate 12.5 mg Oral BID sodium chloride flush 10 mL Intravenous 2 times per day polyethylene glycol 17 g Oral Daily sennosides-docusate sodium 2 tablet Oral Nightly Home Meds: Prior to Admission medications Medication Sig Start Date End Date Taking? Authorizing Provider pantoprazole (PROTONIX) 40 MG tablet Take 40 mg by mouth daily Yes Historical Provider, aspirin 81 MG EC tablet Take 81 mg by mouth daily Yes Historical Provider, ramipril (ALTACE) 10 MG capsule Take 10 mg by mouth daily Yes Historical Provider, clopidogrel (PLAVIX) 75 MG tablet Take 75 mg by mouth daily Yes Historical Provider, Diet: DIET GENERAL; Dietary Nutrition Supplements: Frozen Oral Supplement Dietary Nutrition Supplements: Standard High Calorie Oral Supplement Assessment and Plan: MVCAD -Status post CABGx3 ROTHMAN-LAD, SVG to RCA, SVG to Diag; left leg EVH; with return to OR for bleedingon 03/26/20 -EF 83% on limited echo 03/27/20 -Core Medication: [x]ASA [x]BB [] Statin (held r/t^LFT) [] ACEi/ARB EF>40% -Anticoagulation: n/a Post op Pulm. Mgmt/Resp Failure: On RA-98%. CXR: Reviewed by Dr. Miller who is covering for Dr. Vallecillo for the weekend during rounds today. R-pleural effusion- possible need for thoracentesis. Will reassess CXR tomorrow. Continue lasix 40mg BID po Continue C&DB, Enc use of IS. Post op A fib: Remains NSR 70's. On po amiodarone 200 mg BID. Metoprolol tartrate 12.5 mg BID. Hyperbilirubinemia: Bilirubin 4.6 continues to trend down. Continue LFT. GI signed off. Leukocytosis -WBC 17.8 Afebrile. Incisions intact with no s/s of infection. Introducer already out. Continue to monitor CBC. UA negative. Procal negative. D/w Dr. Aguero (ICU) will check lower extremity dopplers ASHLEIGH on CKD -Creatinine 1.64. Stable Nephrology followed. I&O inaccurate.. Continue monitor BMP. Baseline Cr 1.4 Blood loss Anemia -Hgb: 8.0. Stable. No s/s bleeding. Continue to monitor CBC Poor intake/Dysphagia Appetite slowly improving w/ increased intake. Speech followed- on reg diet/thin liq Depressed mood -CLP followed. Pt declined med mgmt/or outpatient services. Mood improves each day. Acute post op pain -Percocet prn GI/DVT prophylaxis - PPI/SCD/Teds sq heparin Deconditioned -PT/OT working with pt. Pt states ambulated to front door area yesterday. Still recommending facility based rehab. Able to walk around half entire hallway (walked 5 times yesterday) Disposition - Continue progressive care in [facility]-possibly home with home health vs facility for rehab this week. Blood Conservation Initiative Log: - 03/26 multiple blood products intraop/post op due to bleeding. * Cruz Salvador MD - 04/07/2020 1:20 PM EDT [facility] Progress Note SUBJECTIVE: Karen Kearns is a 79 y.o. male who is being followed by nephrology for ASHLEIGH/CKD . Any overnight events - CABG 03/26/2020 Medications Scheduled Meds: furosemide 40 mg Oral BID amiodarone 200 mg Oral BID heparin (porcine) 5,000 Units Subcutaneous Q12H aspirin 81 mg Oral Daily metoprolol tartrate 12.5 mg Oral BID sodium chloride flush 10 mL Intravenous 2 times per day polyethylene glycol 17 g Oral Daily sennosides-docusate sodium 2 tablet Oral Nightly Continuous Infusions: dextrose Prn Meds : guaiFENesin-dextromethorphan, acetaminophen, oxyCODONE-acetaminophen OR oxyCODONE-acetaminophen, melatonin, sodium chloride flush, calcium gluconate, ondansetron, potassium chloride, glucose, dextrose, glucagon (rDNA), dextrose Home Meds: No current facility-administered medications on file prior to encounter. Current Outpatient Medications on File Prior to Encounter Medication Sig Dispense Refill pantoprazole (PROTONIX) 40 MG tablet Take 40 mg by mouth daily aspirin 81 MG EC tablet Take 81 mg by mouth daily ramipril (ALTACE) 10 MG capsule Take 10 mg by mouth daily clopidogrel (PLAVIX) 75 MG tablet Take 75 mg by mouth daily OBJECTIVE Physical BP (!) 117/44 Pulse 69 Temp 98.6 F (37 C) (Oral) Resp 22 Ht 5' 10 (1.778 m) Wt 184 lb 1.4 oz (83.5 kg) SpO2 97% BMI 26.41 kg/m 24HR INTAKE/OUTPUT: Intake/Output Summary (Last 24 hours) at 04/07/2020 1320 Last data filed at 04/07/2020 0900 Gross per 24 hour Intake 360 ml Output 1900 ml Net -1540 ml General: AAO x 3, speaking in full sentences, no accessory muscle use. HEENT: Atraumatic, normocephalic, no throat congestion, moist mucosa. Eyes: Pupils equal, round and reactive to light, EOMI. Neck: No JVD, no thyromegaly, no lymphadenopathy. Chest: Bilateral vesicular breath sounds, no rales or wheezes. Cardiac: S1 S2 RR, no murmurs, gallops or rubs, JVP not raised. Abdomen: Soft, non-tender, no masses or organomegaly, BS audible. : No suprapubic or flank tenderness. Neuro: AAO x 3, No FND. SKIN: No rashes, good skin turgor. Data Last 3 CMP: Recent Labs 04/05/20 0022 04/06/20 0031 04/07/20 0129 NA 138 137 139 K 3.7 3.6 4.0 CL 98 100 99 CO2 31* 32* 30 BUN 51* 56* 52* CREATININE 1.55* 1.66* 1.65* CALCIUM 7.8* 7.6* 8.2* PROT 6.3 6.1* 6.4 LABALBU 3.2* 3.0* 3.2* BILITOT 6.1* 5.4* 5.5* ALKPHOS 192* 154* 164* AST 65* 55* 51* ALT 91* 81* 84* Last 3 CBC: Recent Labs 04/05/20 0022 04/06/20 0031 04/07/20 0132 WBC 14.4* 15.2* 17.7* RBC 2.86* 2.61* 2.66* HGB 8.8* 8.0* 8.1* HCT 26.4* 24.2* 24.8* MCV 92.4 92.6 93.3 MCH 30.8 30.6 30.6 MCHC 33.3 33.0 32.7 RDW 17.3* 17.3* 17.9* PLT 258 293 331 MPV 9.2 9.0 8.7 ASSESSMENT Patient Active Problem List Diagnosis Date Noted Severe malnutrition (HCC) 04/04/2020 Postoperative depression 04/01/2020 Other constipation 04/01/2020 Hyperbilirubinemia Postoperative anemia due to acute blood loss 03/28/2020 Consumptive coagulopathy (HCC) 03/28/2020 Paroxysmal atrial fibrillation (HCC) 03/28/2020 S/P CABG (coronary artery bypass graft) Stress hyperglycemia CAD in [place] artery 03/22/2020 Hypertension Hyperlipidemia Chronic kidney disease GERD (gastroesophageal reflux disease) Coronary artery disease involving [place] coronary artery of [place] heart with angina pectoris (HCC) ASSESSMENT/PLAN: ASHLEIGH likely prerenal CKD 3 baseline Scr 1.4 per outpatient records s/p CABGx3 ROTHMAN-LAD, SVG to RCA, SVG to Diag; Creatinine 1.65 Avoid nephrotoxins hypotension S/p lasix 40 mg bp ok currently Cruz Salvador MD 04/07/2020 1:20 PM * Sj Sierra, OT - 04/06/2020 3:42 PM EDT Occupational Therapy Occupational Therapy Initial Assessment Date: 04/06/2020 Patient Name: Karen Kearns : 1940 Date of Service: 04/06/2020 Discharge Recommendations: 24 hour supervision or assist, Home with Home health OT Assessment Performance deficits / Impairments: Decreased functional mobility ;Decreased ADL status;Decreased strength;Decreased safe awareness;Decreased endurance;Decreased balance;Decreased high-level IADLs Assessment: Admitted s/p CABGx3 on 03/26, has sternal precautions. 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 Pt on RA during eval, supine in bed and agreeable to therapy. Pt complained of some nausea, informed RN and zofran was given. Pt min A for supine<>sit, SBA sit<>supine. Pt sat EOB 10 mins with mod indep and no LOB. Completed LBD while sittingEOB supervision with pants. Pt ambulated in room and vega on RA using FWW with no LOB, limited by endurance which RN reports has been biggest limiting factor. At this time pt is most appropriate for home therapies with use of FWW. Prognosis: Good Decision Making: Low Complexity OT Education: OT Role;Plan of Care;Precautions;ADL Adaptive Strategies;Transfer Training;Energy Conservation REQUIRES OT FOLLOW UP: Yes Safety Devices Safety Devices in place: Yes Type of devices: Call light within reach;Patient at risk for falls;Left in bed;Nurse notified Patient Diagnosis(es): There were no encounter diagnoses. has a past medical history of Harmon's palsy, Chronic kidney disease, Diverticulosis of colon, GERD (gastroesophageal reflux disease), Hyperlipidemia, Hypertension, and Internal hemorrhoids. has a past surgical history that includes Rotator cuff repair (Right) and hernia repair. Restrictions Restrictions/Precautions Restrictions/Precautions: Fall Risk, Surgical Protocols, Weight Bearing Required Braces or Orthoses?: No Upper Extremity Weight Bearing Restrictions Other: sternal precautions Position Activity Restriction Sternal Precautions: No Pushing, No Pulling, 10# Lifting Restrictions Sternal Precautions: yes Other position/activity restrictions: . Subjective General Chart Reviewed: Yes Patient assessed for rehabilitation services?: Yes Family / Caregiver Present: No Social/Functional History Social/Functional History Lives With: Spouse Type of Home: House Home Layout: Two level, Able to Live on Main level with bedroom/bathroom Home Access: Stairs to enter with rails Entrance Stairs - Number of Steps: 3 Bathroom Shower/Tub: Tub/Shower unit Bathroom Toilet: Standard Bathroom Accessibility: Accessible Home Equipment: (none) ADL Assistance: Independent Homemaking Assistance: Independent Ambulation Assistance: Independent Transfer Assistance: Independent Active Well Logging Mud Analysis Captain: Yes Mode of Transportation: Car Occupation: Retired Additional Comments: Poor historian. Pt stating that he walks without device. Objective Orientation Overall Orientation Status: Within Normal Limits Balance Sitting Balance: Independent Standing Balance: Stand by assistance Functional Mobility Functional - Mobility Device: Rolling Walker Assist Level: Stand by assistance ADL LE Dressing: Stand by assistance Tone RUE RUE Tone: Normotonic Tone LUE LUE Tone: Normotonic Bed mobility Supine to Sit: Minimal assistance Sit to Supine: Stand by assistance Scooting: Stand by assistance Transfers Sit to stand: Stand by assistance Stand to sit: Stand by assistance LUE AROM (degrees) LUE AROM : WFL RUE AROM (degrees) RUE AROM : WFL Plan Plan Times per week: 5 Plan weeks: 2 Current Treatment Recommendations: Strengthening, Balance Training, Endurance Training, Functional Mobility Training, Gait Training, Stair training, Pain Management, Safety Education & Training, Patient/Caregiver Education & Training, Equipment Evaluation, Education, & procurement, Self-Care / ADL, Home Management Training G-Code OutComes Score AM-PAC Daily Activity Inpatient How much help for putting on and taking off regular lower body clothing?: A Little How much help for Bathing?: A Little How much help for Toileting?: A Little How much help for putting on and taking off regular upper body clothing?: None How much help for taking care of personal grooming?: A Little How much help for eating meals?: None AM-PAC Inpatient Daily Activity Raw Score: 20 AM-PAC Inpatient ADL T-Scale Score : 42.03 ADL Inpatient CMS 0-100% Score: 38.32 ADL Inpatient CMS G-Code Modifier : CJ AM-PAC Score AM-PAC Inpatient Daily Activity Raw Score: 20 (04/06/201532) AM-PAC Inpatient ADL T-Scale Score : 42.03 (04/06/201532) ADL Inpatient CMS 0-100% Score: 38.32 (04/06/201532) ADL Inpatient CMS G-Code Modifier : (04/06/201532) Goals Short term goals Time Frame for Short term goals: 2 weeks Short term goal 1: LBD mod indep Short term goal 2: toileting mod indep Short term goal 3: grooming at sink in FWW mod indep Short term goal 4: ADLs within sternal prec no cues Therapy Time Individual Concurrent Group Co-treatment Time In 1457 Time Out 1524 Minutes 27 Timed Code Treatment Minutes: 10 Minutes Sj Sierra OT Goals and/or treatment plan was established in collaboration with patient/family/other representatives. Patient's Occupational Therapy Plan of Care [facility]. *OT evaluation/treatment completed wearing N95, face shield and gloves* * Cruz Salvador MD - 04/06/2020 3:18 PM EDT [facility] Progress Note SUBJECTIVE: Karen Kearns is a 79 y.o. male who is being followed by nephrology for ASHLEIGH/CKD . Any overnight events - CABG 03/26/2020 Medications Scheduled Meds: furosemide 40 mg Oral BID amiodarone 200 mg Oral BID heparin (porcine) 5,000 Units Subcutaneous Q12H aspirin 81 mg Oral Daily metoprolol tartrate 12.5 mg Oral BID sodium chloride flush 10 mL Intravenous 2 times per day polyethylene glycol 17 g Oral Daily sennosides-docusate sodium 2 tablet Oral Nightly Continuous Infusions: dextrose Prn Meds : guaiFENesin-dextromethorphan, acetaminophen, oxyCODONE-acetaminophen OR oxyCODONE-acetaminophen, melatonin, sodium chloride flush, calcium gluconate, ondansetron, potassium chloride, glucose, dextrose, glucagon (rDNA), dextrose Home Meds: No current facility-administered medications on file prior to encounter. Current Outpatient Medications on File Prior to Encounter Medication Sig Dispense Refill pantoprazole (PROTONIX) 40 MG tablet Take 40 mg by mouth daily aspirin 81 MG EC tablet Take 81 mg by mouth daily ramipril (ALTACE) 10 MG capsule Take 10 mg by mouth daily clopidogrel (PLAVIX) 75 MG tablet Take 75 mg by mouth daily OBJECTIVE Physical BP (!) 121/46 Pulse 73 Temp 98 F (36.7 C) (Oral) Resp 20 Ht 5' 10 (1.778 m) Wt 182 lb 12.2 oz (82.9 kg) SpO2 92% BMI 26.22 kg/m 24HR INTAKE/OUTPUT: Intake/Output Summary (Last 24 hours) at 04/06/2020 1518 Last data filed at 04/06/2020 1300 Gross per 24 hour Intake 1220 ml Output 1775 ml Net -555 ml General: AAO x 3, speaking in full sentences, no accessory muscle use. HEENT: Atraumatic, normocephalic, no throat congestion, moist mucosa. Eyes: Pupils equal, round and reactive to light, EOMI. Neck: No JVD, no thyromegaly, no lymphadenopathy. Chest: Bilateral vesicular breath sounds, no rales or wheezes. Cardiac: S1 S2 RR, no murmurs, gallops or rubs, JVP not raised. Abdomen: Soft, non-tender, no masses or organomegaly, BS audible. : No suprapubic or flank tenderness. Neuro: AAO x 3, No FND. SKIN: No rashes, good skin turgor. Data Last 3 CMP: Recent Labs 04/04/20 0040 04/05/20 0022 04/06/20 0031 NA 136 138 137 K 3.8 3.7 3.6 CL 99 98 100 CO2 28 31* 32* BUN 51* 51* 56* CREATININE 1.60* 1.55* 1.66* CALCIUM 7.6* 7.8* 7.6* PROT 6.1* 6.3 6.1* LABALBU 3.1* 3.2* 3.0* BILITOT 6.9* 6.1* 5.4* ALKPHOS 209* 192* 154* AST 86* 65* 55* ALT 97* 91* 81* Last 3 CBC: Recent Labs 04/04/20 0040 04/05/20 0022 04/06/20 0031 WBC 13.5* 14.4* 15.2* RBC 2.77* 2.86* 2.61* HGB 8.5* 8.8* 8.0* HCT 25.2* 26.4* 24.2* MCV 90.9 92.4 92.6 MCH 30.5 30.8 30.6 MCHC 33.5 33.3 33.0 RDW 16.6* 17.3* 17.3* PLT 224 258 293 MPV 9.3 9.2 9.0 ASSESSMENT Patient Active Problem List Diagnosis Date Noted Severe malnutrition (HCC) 04/04/2020 Postoperative depression 04/01/2020 Other constipation 04/01/2020 Hyperbilirubinemia Postoperative anemia due to acute blood loss 03/28/2020 Consumptive coagulopathy (HCC) 03/28/2020 Paroxysmal atrial fibrillation (HCC) 03/28/2020 S/P CABG (coronary artery bypass graft) Stress hyperglycemia CAD in [place] artery 03/22/2020 Hypertension Hyperlipidemia Chronic kidney disease GERD (gastroesophageal reflux disease) Coronary artery disease involving [place] coronary artery of [place] heart with angina pectoris (HCC) ASSESSMENT/PLAN: ASHLEIGH likely prerenal CKD 3 baseline Scr 1.4 per outpatient records s/p CABGx3 ROTHMAN-LAD, SVG to RCA, SVG to Diag; Creatinine 1.66 Avoid nephrotoxins hypotension S/p lasix 40 mg IV xBID bp ok currently Cruz Salvador MD 04/06/2020 3:18 PM * Lorraine Burris, CUT LACE MACHINE OPERATOR - 04/06/2020 9:41 AM EDT Physical Therapy Facility/Department: [facility] Daily Treatment Note NAME: Karen Kearns : 1940 Date of Service: 04/06/2020 Discharge Recommendations: IP Rehab, Continue to assess pending progress PT Equipment Recommendations Equipment Needed: Yes Mobility Devices: Walker Walker: Rolling Assessment Body structures, Functions, Activity limitations: Decreased functional mobility ;Decreased endurance;Decreased strength;Decreased balance;Decreased posture Assessment: Pt present with the above deficits at SBA for transfers and CGA/min assist for gait. Ptrequires increased time and rest breaks today. Still limited on gait distance. Decreased endurance and weakness limiting him. Rec reahb upon discharge. REQUIRES PT FOLLOW UP: Yes Activity Tolerance Activity Tolerance: Patient limited by fatigue;Patient limited by endurance Patient Diagnosis(es): There were no encounter diagnoses. has a past medical history of Harmon's palsy, Chronic kidney disease, Diverticulosis of colon, GERD (gastroesophageal reflux disease), Hyperlipidemia, Hypertension, and Internal hemorrhoids. has a past surgical history that includes Rotator cuff repair (Right) and hernia repair. Restrictions Restrictions/Precautions Restrictions/Precautions: Fall Risk, Surgical Protocols, Weight Bearing Required Braces or Orthoses?: No Upper Extremity Weight Bearing Restrictions Other: sternal precautions Position Activity Restriction Sternal Precautions: No Pushing, No Pulling, 10# Lifting Restrictions Sternal Precautions: yes Other position/activity restrictions: . Subjective General Chart Reviewed: Yes Family / Caregiver Present: No Subjective Subjective: Pt in chair, RN in room, pt agreeable to PT. General Comment Comments: *This CUT LACE MACHINE OPERATOR wore N95, gloves and goggles throughout pt encounter. Pain Screening Patient Currently in Pain: Denies Objective Transfers Sit to Stand: Stand by assistance Stand to sit: Stand by assistance Comment: x 4reps from chair x3 and toilet x 1. Cues for sternal precautions. Ambulation Ambulation?: Yes WB Status: sternal precautions More Ambulation?: Yes Ambulation 1 Surface: level tile Device: No Device Assistance: Minimal assistance Gait Deviations: Staggers;Decreased step length;Decreased step height Distance: 45ft x 2 Comments: 1 standing rest break. Fatigues easily. Lengthy seated rest break before trial gait again. Ambulation 2 Surface - 2: level tile Device 2: No device Assistance 2: Minimal assistance Gait Deviations: Slow Rosa;Decreased step length;Decreased step height;Shuffles Distance: 15 ft x2 Comments: Pt requested to turn around due to fatigue and decreased endurance. Seated rest break. Ambulation 3 Surface - 3: level tile Device 3: Rolling Walker Assistance 3: Minimal assistance Gait Deviations: Slow Rosa;Decreased step length;Decreased step height Distance: 60 ft x 2 with atleast 3 standing rest breaks Comments: Cues for pursed lip breathing. Decreased endurance still limiting him. Unsteady. Pt requires encouragement to increase gait distance. Improved balance with FWW. Wheelchair Activities Propulsion: No Balance Comments: Dynamic standing for hand hygiene, pt with retro lean, flexed knees, cues for upright awareness, CGA for balance. Exercises Upper Extremity: P&C ex #1-9 all x 10 reps each. Comments: Encouraged pt to increased P&C sets, pt states he usually just does them when therapyis in the room. AM-PAC Score Goals Short term goals Time Frame for Short term goals: 2 weeks Short term goal 1: bed mobility min. assist-not addressed Short term goal 2: Sit to stand transfer supervision with out cues for sternal precautions; Goal updated; progressing Short term goal 3: ambulate 150 ft, with least restrictive device or no device and standby. assist;Goal updated; progressing Short term goal 4: supervision with P&C ex, IS, secretion clearance and understanding of walking program.- progressing Short term goal 5: Curb step, mod of 1-not addressed Patient Goals Patient goals : Return home Plan Plan Times per week: 5-6x/wk Times per day: Daily Plan weeks: 2 weeks Current Treatment Recommendations: Strengthening, Transfer Training, Balance Training, Gait Training, Functional Mobility Training, Home Exercise Program, Endurance Training Plan Comment: Chest PT Safety Devices Type of devices: Left in chair, Call light within reach, All fall risk precautions in place, Nurse notified Restraints Initially in place: No Therapy Time Individual Concurrent Group Co-treatment Time In 0855 Time Out 0941 Minutes 46 Timed Code Treatment Minutes: 40 Minutes(TP; gait x 2) Variance: 6(restroom) Lorraine Burris PTA * Estela Armendariz, STAPLE CUTTER - BAG TURNER - 04/06/2020 5:46 AM EDT Cardiothoracic Surgery Progress Note PATIENT NAME: Karen Kearns : 1940 (79 y.o.) TODAY'S DATE: 04/06/2020 Interval History: 03/26: CABGx3 ROTHMAN-LAD, SVG to RCA, SVG to Diag; left leg EVH; s/p take back to OR for bleeding 04/06: POD #11: VSS overnight; no acute hemodynamic events. Slept most of the night. Better mood this am; feels getting stronger. Last recorded/verified vitals in [facility] Temp: 98.7 F (37.1 C) Pulse: 68 BP: (!) 118/52 Resp: 18 SpO2: 93 % Diagnostic reviewed in EMR Physical Exam Eyes: General: Scleral icterus present. Cardiovascular: Rate and Rhythm: Normal rate and regular rhythm. Heart sounds: Normal heart sounds. No murmur. Pulmonary: Effort: Pulmonary effort is normal. Breath sounds: Examination of the right-lower field reveals decreased breath sounds. Examination ofthe left-lower field reveals decreased breath sounds. Decreased breath sounds present. Comments: Coarse R>L Abdominal: General: Bowel sounds are normal. Palpations: Abdomen is soft. Abdomen is not rigid. Tenderness: There is no abdominal tenderness. Skin: General: Skin is warm and dry. Capillary Refill: Capillary refill takes less than 2 seconds. Coloration: Skin is jaundiced. Neurological: Mental Status: He is alert. Psychiatric: Behavior: Behavior normal. Behavior is cooperative. Assessment/Plan CAD/HTN/HLD s/p CABGx3 ROTHMAN-LAD, SVG to RCA, SVG to Diag; left leg EVH; s/p take back to OR for bleeding on 03/26 Continue care per orders: Aggressive PT/OT and pulm hygiene. No changes to medication. PT recommending IP rehab- Dispo planning -->likely home with home health early next week. Cardiac Core Medications: ASA and BB statin held due to LFTs/bili DVT prophylaxis: TEDs, SCDs and Heprin SQ POAF Likely related to surgery no prior history; currently SR. On BB PO amio. Continue amio load. Post Operative Pulmonary Management Acute Post-Operative Respiratory Insufficiency: resolved CCM:consulted-managing Maintain SpO2 >92% and Increase Activity, Encourage Pulmonary Hygiene: Acapella, Incentive Spirometry, Cough and Deep Breathing ASHLEIGH on CKD stage III Baseline SCr ~1.4; GFR ~54 ASHLEIGH resolved likely was prerenal; Nephro following appreciate recs. On lasix PO bid. Hyperbilirubinemia 2/2 possible hemolysis vs med SE GI consulted/signed off: Liver profile downtrending. Holding Statin. Will discuss with BONY de la torre Disclaimer ? INFORMED CONSENT:The nature and purpose of the proposed treatment or procedure have been discussed. The risks and benefits of the proposed treatment or procedures have been reviewed. Alternatives have been reviewed in addition to the risks and benefits of not receiving treatments or undergoing procedures. Pursuant to this discussion, the patient agrees to undergo the proposed treatment or procedure. ? Captured images seen in this note from are not a substitute for a comprehensive interpretation ofthe entire data set as reflected by the interpreting physician with regard to radiology, echocardiography, and other diagnostic images. ? This note may have been dictated using [employer] Practice Edition 2.6 and/or [employer] Voice Recognition Feature. The document was proofread, however unrecognized voice recognition material handling technician errors may be present. * Cruz Salvador MD - 04/05/2020 2:25 PM EDT [facility] Progress Note SUBJECTIVE: Karen Kearns is a 79 y.o. male who is being followed by nephrology for ASHLEIGH/CKD . Any overnight events - CABG 03/26/2020 Medications Scheduled Meds: furosemide 40 mg Intravenous BID [START ON 04/06/2020] furosemide 40 mg Oral BID amiodarone 200 mg Oral BID heparin (porcine) 5,000 Units Subcutaneous Q12H aspirin 81 mg Oral Daily metoprolol tartrate 12.5 mg Oral BID sodium chloride flush 10 mL Intravenous 2 times per day polyethylene glycol 17 g Oral Daily sennosides-docusate sodium 2 tablet Oral Nightly Continuous Infusions: dextrose Prn Meds : guaiFENesin-dextromethorphan, acetaminophen, oxyCODONE-acetaminophen OR oxyCODONE-acetaminophen, melatonin, sodium chloride flush, calcium gluconate, ondansetron, potassium chloride, glucose, dextrose, glucagon (rDNA), dextrose Home Meds: No current facility-administered medications on file prior to encounter. Current Outpatient Medications on File Prior to Encounter Medication Sig Dispense Refill pantoprazole (PROTONIX) 40 MG tablet Take 40 mg by mouth daily aspirin 81 MG EC tablet Take 81 mg by mouth daily ramipril (ALTACE) 10 MG capsule Take 10 mg by mouth daily clopidogrel (PLAVIX) 75 MG tablet Take 75 mg by mouth daily OBJECTIVE Physical BP (!) 128/52 Pulse 72 Temp 97.8 F (36.6 C) (Oral) Resp 18 Ht 5' 10 (1.778 m) Wt 187 lb 6.4 oz (85 kg) SpO2 95% BMI 26.89 kg/m 24HR INTAKE/OUTPUT: Intake/Output Summary (Last 24 hours) at 04/05/2020 1426 Last data filed at 04/05/2020 1417 Gross per 24 hour Intake 400 ml Output 1730 ml Net -1330 ml General: AAO x 3, speaking in full sentences, no accessory muscle use. HEENT: Atraumatic, normocephalic, no throat congestion, moist mucosa. Eyes: Pupils equal, round and reactive to light, EOMI. Neck: No JVD, no thyromegaly, no lymphadenopathy. Chest: Bilateral vesicular breath sounds, no rales or wheezes. Cardiac: S1 S2 RR, no murmurs, gallops or rubs, JVP not raised. Abdomen: Soft, non-tender, no masses or organomegaly, BS audible. : No suprapubic or flank tenderness. Neuro: AAO x 3, No FND. SKIN: No rashes, good skin turgor. Data Last 3 CMP: Recent Labs 04/03/20 0000 04/04/20 0040 04/05/20 0022 NA 136 136 138 K 3.8 3.8 3.7 CL 99 99 98 CO2 28 28 31* BUN 52* 51* 51* CREATININE 1.57* 1.60* 1.55* CALCIUM 8.0* 7.6* 7.8* PROT 6.4 6.1* 6.3 LABALBU 3.4* 3.1* 3.2* BILITOT 7.5* 6.9* 6.1* ALKPHOS 197* 209* 192* AST 88* 86* 65* ALT 84* 97* 91* Last 3 CBC: Recent Labs 04/03/20 0000 04/04/20 0040 04/05/20 0022 WBC 14.0* 13.5* 14.4* RBC 3.07* 2.77* 2.86* HGB 9.3* 8.5* 8.8* HCT 28.2* 25.2* 26.4* MCV 92.0 90.9 92.4 MCH 30.2 30.5 30.8 MCHC 32.8 33.5 33.3 RDW 15.7* 16.6* 17.3* PLT 193 224 258 MPV 9.6 9.3 9.2 ASSESSMENT Patient Active Problem List Diagnosis Date Noted Severe malnutrition (HCC) 04/04/2020 Postoperative depression 04/01/2020 Other constipation 04/01/2020 Hyperbilirubinemia Postoperative anemia due to acute blood loss 03/28/2020 Consumptive coagulopathy (HCC) 03/28/2020 Paroxysmal atrial fibrillation ([facility]) 03/28/2020 S/P CABG (coronary artery bypass graft) Stress hyperglycemia CAD in [place] artery 03/22/2020 Hypertension Hyperlipidemia Chronic kidney disease GERD (gastroesophageal reflux disease) Coronary artery disease involving [place] coronary artery of [place] heart with angina pectoris ([facility]) ASSESSMENT/PLAN: ASHLEIGH likely prerenal CKD 3 baseline Scr 1.4 per outpatient records s/p CABGx3 ROTHMAN-LAD, SVG to RCA, SVG to Diag; Creatinine 1.55 Avoid nephrotoxins hypotension S/p lasix 40 mg IV xBID bp ok currently Cruz Salvador MD 04/05/2020 2:26 PM * Ronald Izquierdo - 04/05/2020 2:09 PM EDT Physical Therapy Facility/Department: [facility] Daily Treatment Note NAME: Karen Kearns : 1940 Date of Service: 04/05/2020 Discharge Recommendations: IP Rehab, Continue to assess pending progress PT Equipment Recommendations Equipment Needed: No Assessment Body structures, Functions, Activity limitations: Decreased functional mobility ;Decreased endurance;Decreased strength;Decreased balance;Decreased posture Assessment: Pt was supervision to CGA with all functional activities. Pt was able to ambulate 60' without O2 or an assistive device today. Pt able to perform P&C exercises with supervision and instruction on how to perform. Pt making some progress towards goals this date. PT recommends discharge to IP rehab and will continue to asses for home with assist and home health PT. Prognosis: Good Decision Making: Medium Complexity PT Education: PT Role;Plan of Care;Goals;Precautions;Equipment;Home Exercise Program;Transfer Training;General Safety;Functional Mobility Training Patient Education: sternal precaution were cued multiple times throughout session. Pteducated to perform P&C exercises 3-4 times per day as HEP. REQUIRES PT FOLLOW UP: Yes Activity Tolerance Activity Tolerance: Patient limited by fatigue;Patient limited by endurance Patient Diagnosis(es): There were no encounter diagnoses. has a past medical history of Harmon's palsy, Chronic kidney disease, Diverticulosis of colon, GERD (gastroesophageal reflux disease), Hyperlipidemia, Hypertension, and Internal hemorrhoids. has a past surgical history that includes Rotator cuff repair (Right) and hernia repair. Restrictions Restrictions/Precautions Restrictions/Precautions: Fall Risk, Surgical Protocols, Weight Bearing Required Braces or Orthoses?: No Upper Extremity Weight Bearing Restrictions Other: sternal precautions Position Activity Restriction Sternal Precautions: No Pushing, No Pulling, 10# Lifting Restrictions Sternal Precautions: yes Other position/activity restrictions: . Subjective General Chart Reviewed: Yes Family / Caregiver Present: No Subjective Subjective: Pt agreeable to PT this date. Pt reports he is tired today because he couldn't fall asleep last night because he was napping all day yesterday. Pt stated he is not that hungry and is not able to eat his lunch today. Pt reports he is of room O2 and confirmed by RN. Pt reports he gets fatigued easy but has been up 4 times today for short walks. General Comment Comments: Pt reclined in chair with Hi greene. Pt had multiple coughs throughout session with minimal excretions. Pt cued to hug pillow when coughing. Pain Screening Patient Currently in Pain: Denies Vital Signs Patient Currently in Pain: Denies Orientation Orientation Overall Orientation Status: Within Normal Limits Cognition Cognition Overall Cognitive Status: Exceptions Insights: Decreased awareness of deficits Initiation: Requires cues for all Sequencing: Requires cues for all Cognition Comment: Pt required multiple cues for sternal precautions throughout session. However ptwas able to state precautions at beginning of session. Objective Transfers Sit to Stand: Contact guard assistance(Performed x2; Posterior lean after seconf sit to stand and required cueing to stand up tall and not lean back.) Stand to sit: Stand by assistance(Performed x2. Cued to hug pillow and not put RUE on knee during descent.) Ambulation Ambulation?: Yes Ambulation 1 Surface: level tile Device: No Device Assistance: Contact guard assistance(Pt was mainly standby assist this date with ambulation. However pt required CGA secondary to stagger to his R at end of ambulation.) Gait Deviations: Staggers;Decreased step length;Decreased step height Distance: Pt ambulated 30' x2 with 10 second rest break between Comments: Pt reported he was tired after 30' and needed to turn around. Pt was not on O2 and there was no assistive device used. Stairs/Curb Stairs?: No Balance Posture: Fair Sitting - Static: Good Sitting - Dynamic: Fair;+ Standing - Static: Fair;+ Standing - Dynamic: Fair;- Comments: Pt required cues to stand up tall and not lean posterior with static standing. Pt required CGA for standing balance for 2 min. Exercises Upper Extremity: P&C ex #1-9 all x 10 reps each; Pt required 1 min break after 5th exercise. Ptinstructed to perform 3-4 times per day. Other exercises Other exercises 1: Pt instructed to perform incentive spirometry x10. Pt required short break after. AM-PAC Score AM-[facility] Inpatient Mobility Raw Score : 10 (04/05/20 1340) AM-[facility] Inpatient T-Scale Score : 32.29 (04/05/20 134) Mobility Inpatient CMS 0-100% Score: 76.75 (04/05/20 1340) Mobility Inpatient [facility] G-Code Modifier : CL (04/05/201339) Goals Short term goals Time Frame for Short term goals: 2 weeks Short term goal 1: bed mobility min. assist-not addressed Short term goal 2: Sit to stand transfer supervision with out cues for sternal precautions; Goal updated Short term goal 3: ambulate 150 ft, with least restrictive device or no device and standby. assist;Goal updated Short term goal 4: supervision with P&C ex, IS, secretion clearance and understanding of walking program.-slowly progressing Short term goal 5: Curb step, mod of 1-not addressed Patient Goals Patient goals : Return home Plan Plan Times per week: 5-6x/wk Times per day: Daily Plan weeks: 2 weeks Current Treatment Recommendations: Strengthening, Transfer Training, Balance Training, Gait Training, Functional Mobility Training, Home Exercise Program, Endurance Training Plan Comment: Chest PT Safety Devices Type of devices: Left in chair, Call light within reach, All fall risk precautions in place, Gait belt Restraints Initially in place: No Therapy Time Individual Concurrent Group Co-treatment Time In 1310 Time Out 1335 Minutes 25 Timed Code Treatment Minutes: 25 Minutes(1 unit FA; 1 unit TP) Ronald Izquierdo, VIVIAN No Bed/chair alarm on prior to session and no alarm after session Transfer Plan of care over to [facility] Physical Therapy staff. Goals and/or treatment plan was established in collaboration with patient. SPT wore N95, goggles, and gloves. * Flora Quintanilla, EMMANUELLE - 04/05/2020 12:58 PM EDT Facility/Department: [facility] Dysphagia Treatment Note NAME: Karen Kearns : 1940 Patient Diagnosis(es): Patient Active Problem List Diagnosis Hypertension Hyperlipidemia Chronic kidney disease GERD (gastroesophageal reflux disease) Coronary artery disease involving [place] coronary artery of [place] heart with angina pectoris (HCC) CAD in [place] artery S/P CABG (coronary artery bypass graft) Stress hyperglycemia Postoperative anemia due to acute blood loss Consumptive coagulopathy (HCC) Paroxysmal atrial fibrillation (HCC) Hyperbilirubinemia Postoperative depression Other constipation Severe malnutrition (HCC) Allergies: No Known Allergies Onset Date: 03/21/2020 Oxygen Level: Room Air Current Diet Level: Regular diet Pain:RN managing S: Up in chair; Pleasant and cooperative; Still limited appetite O: Assess for prandial dysphagia A: Patient consumed 100% of breakfast tray. Therapist present for lunch tray but patient has no appetite. Patient agrees to eat a bite of the dinner roll and drink some Rose elizabeth. There is mild oralresidue after the dinner roll bolus. Patient able to clear the oral cavity with a liquid chaser. There is no immediate change in voice or cough after the swallow. Patient has a random cough throughout this session - even when patient is not eating or drinking. Patient attributes same to sinus drainage that he has struggled with since 1964. Patient has a right side facial droop that is from Harmon'sPalsy diagnosed s/p 15 years ago per patient. Laryngeal excursion is clinically adequate. Patient denies dysphagia. [] Goal met [x] Progressing as expected [] Progressing slower than expected [] Medical status inhibits participation [] Goals not addressed this session [] Goals revised this session [] Unable to show any progress towards functional goals [] Progress towards functional goal is gradual / fair P: Recommend patient continue on a Regular diet. If there is concern for aspiration that cannot be definitively diagnosed at the bedside, then please order a modified barium swallow for direct assessment of the pharyngeal phase of the swallow. Time Out: 1255 Session Time: 15 minutes * KearnsKael APRN - SEAT COVER CUTTER - 04/05/2020 6:30 AM EDT Cardiothoracic Surgery Progress Note 04/05/2020 Subjective: Admit Date: 03/21/2020 Interval History: S/P CABG x3 on 03/26/20 w/return to OR for bleeding-POD#10- No issues over night. Subjective: Up in chair. States feels much better today, no hiccups the last two day Objective: Vitals: Temp (24hrs), Av.6 F (37 C), Min:98.4 F (36.9 C), Max:98.8 F (37.1 C) BP 138/62 Pulse 75 Temp 98.8 F (37.1 C) (Oral) Resp 20 Ht 5' 10 (1.778 m) Wt 187 lb 6.4 oz (85 kg) SpO2 97% BMI 26.89 kg/m I/O: +BM Date 04/05/20 0000 - 04/05/20 2359 Shift 6092-6989 2663-3480 9595-5643 24 Hour Total INTAKE Shift Total(mL/kg) OUTPUT Urine(mL/kg/hr) 650 650 Shift Total(mL/kg) 650(7.6) 650(7.6) Weight (kg) 85 85 85 85 Weights: Patient Vitals for the past 96 hrs (Last 3 readings): Weight 04/05/20 0500 187 lb 6.4 oz (85 kg) 04/04/20 0600 188 lb 8 oz (85.5 kg) 04/03/20 0500 188 lb 12.8 oz (85.6 kg) Labs: BMP: Recent Labs 04/03/20 0000 04/04/20 0040 04/05/20 0022 NA 136 136 138 K 3.8 3.8 3.7 CL 99 99 98 CO2 28 28 31* BUN 52* 51* 51* CREATININE 1.57* 1.60* 1.55* GLUCOSE 128* 134* 112* . CBC: Recent Labs 04/03/20 0000 04/04/20 0040 04/05/20 0022 WBC 14.0* 13.5* 14.4* RBC 3.07* 2.77* 2.86* HGB 9.3* 8.5* 8.8* HCT 28.2* 25.2* 26.4* MCV 92.0 90.9 92.4 MCH 30.2 30.5 30.8 MCHC 32.8 33.5 33.3 RDW 15.7* 16.6* 17.3* PLT 193 224 258 MPV 9.6 9.3 9.2 Hepatic: Recent Labs 04/04/20 0040 04/05/20 0022 AST 86* 65* ALT 97* 91* BILITOT 6.9* 6.1* ALKPHOS 209* 192* INR: Lab Results Component Value Date PROTIME 13.0 03/29/2020 INR 1.2 03/29/2020 Physical Exam: Physical Exam Constitutional: General: He is not in acute distress. Appearance: Normal appearance. He is well-developed. He is not diaphoretic. HENT: Head: Normocephalic and atraumatic. Nose: Nose normal. Mouth/Throat: Mouth: Mucous membranes are moist. Eyes: Pupils: Pupils are equal, round, and reactive to light. Neck: Musculoskeletal: Normal range of motion and neck supple. Vascular: No JVD. Cardiovascular: Rate and Rhythm: Normal rate and regular rhythm. Pulses: Dorsalis pedis pulses are 2+ on the right side and 2+ on the left side. Heart sounds: Normal heart sounds, S1 normal and S2 normal. No murmur. No friction rub. No gallop. Pulmonary: Effort: Pulmonary effort is normal. No respiratory distress. Breath sounds: No stridor. Rales (scattered bilateral bases) present. Comments: Productive cough (clear secretions) pt states feels like sinus drainage Abdominal: General: Bowel sounds are normal. There is no distension. Palpations: Abdomen is soft. Tenderness: There is no abdominal tenderness. Musculoskeletal: Normal range of motion. General: No tenderness. Skin: General: Skin is warm and dry. Coloration: Skin is jaundiced. Comments: Sternotomy incision intact with no signs of infection. Left EVH sites intact with no signs of infection. Inner thigh ecchymotic Neurological: Mental Status: He is alert and oriented to person, place, and time. Psychiatric: Mood and Affect: Mood normal. Behavior: Behavior normal. Thought Content: Thought content normal. Judgment: Judgment normal. Medications: Scheduled Meds: furosemide 40 mg Intravenous BID [START ON 04/06/2020] furosemide 40 mg Oral BID amiodarone 200 mg Oral BID heparin (porcine) 5,000 Units Subcutaneous Q12H aspirin 81 mg Oral Daily metoprolol tartrate 12.5 mg Oral BID sodium chloride flush 10 mL Intravenous 2 times per day polyethylene glycol 17 g Oral Daily sennosides-docusate sodium 2 tablet Oral Nightly Home Meds: Prior to Admission medications Medication Sig Start Date End Date Taking? Authorizing Provider pantoprazole (PROTONIX) 40 MG tablet Take 40 mg by mouth daily Yes Historical Provider, aspirin 81 MG EC tablet Take 81 mg by mouth daily Yes Historical Provider, ramipril (ALTACE) 10 MG capsule Take 10 mg by mouth daily Yes Historical Provider, clopidogrel (PLAVIX) 75 MG tablet Take 75 mg by mouth daily Yes Historical Provider, Diet: DIET GENERAL; Dietary Nutrition Supplements: Frozen Oral Supplement Dietary Nutrition Supplements: Standard High Calorie Oral Supplement Assessment and Plan: 1. MVCAD: Status post CABGx3 ROTHMAN-LAD, SVG to RCA, SVG to Diag; left leg EVH; with return to OR forbleeding on 03/26/20 -EF 83% on limited echo 03/27/20 -Core Medication: [x]ASA [x]BB [] Statin (held r/t^LFT) [] ACEi/ARB EF>40% -Anticoagulation: n/a 2. Post op Pulm. Mgmt/Resp Failure: On RA-95%. CXR: Reviewed by Dr. Vallecillo. Lasix 40mg BID changed to IV for today then likely back to po tomorrow.. Continue C&DB, Enc use of IS. 3. Post op A fib: Remains NSR 60-70's. On po amiodarone 200 mg BID. Metoprolol tartrate 12.5 mg BID. 4. Hyperbilirubinemia: Bilirubin 6.1. continues to trend down. Continue LFT. GI signed off. 5. Leukocytosis: WBC 14.4. Afebrile. Continue to monitor CBC 6. ASHLEIGH on CKD: Creatinine 1.55 U/O 1.4 L last 24 hrs. Continue monitor BMP 7. Blood loss Anemia: Hgb: 8.8 Stable. No s/s bleeding. Continue to monitor CBC 8. Poor intake/Dysphagia: Appetite slowly improving w/ increased intake. Speech followed- on reg diet/thin liq 9. Persistent Hiccups:Resolving. No hiccups for two days 10. Depressed mood: CLP followed. Pt declined med mgmt/or outpatient services. .Mood improved today. 11. Acute post op pain:percocet prn 12. GI/DVT prophylaxis: PPI/SCD/Teds sq heparin 13. Deconditioned: PT/OT working with pt. Recommending facility based rehab. 14. Disposition: Continue progressive care in [facility] Blood Conservation Initiative Log: - 03/26 multiple blood products intraop/post op due to bleeding. * Misa Angeles RD, LD - 04/04/2020 4:22 PM EDT Comprehensive Nutrition Assessment Type and Reason for Visit: Reassess Nutrition Recommendations/Plan: Pt meets ASPEN/AND criteria for malnutrition as indicated below 1. Continue liberal diet. Encourage po intake 2. Per MNT protocol, will modify ONS to Ensure Enlive once daily (350kcal, 20g protein, 8oz each) and Mgic Cup BID (290kcal, 9g protein per cup) 3. Calorie Count completed, results noted in assessment which indicate pt consuming well under 50% estimated needs. However, pt is with reported improvement in po intake currently. >>If pt is consistently unable to meet nutritional need via po diet and EN becomes indicated,can consider TwoCal HN (fluid-restricted) at goal rate of 35ml/hr + 2 packets Pro-stat (protein modular = 100kcal, 15g protein, 30ml free water) to provide a total of 1880kcal, 100g protein, 588ml (25kcal and 1.3g protein per kg IBW <75.5kg>). Monitor labs for signs of refeeding 4. RD will continue to monitor po intake, weights, labs, I/O, overall nutritional status. Will follow up weekly Nutrition Assessment: Pt remains on [facility] s/p CABG x3 with takeback for bleeding on 03/26. Extubated 03/30. AUTO APPRENTICE MECHANIC following for dysphagia, pt ordered reg/thin diet. Poor appetite and po intake doucmented. Calorie count completed on 04/03 with intakes ~ 500kcal, and 17g-48g protein /day (04/01, 04/02, 04/03), which is </=30% kcal needs and 17%-52% protein needs, not meeting estimated needs. KUB showed no acute issues. Pt reports improved appetite yesterday, not so much today, states he ate pretty much everything yesterday. RN states pt did well at breakfast today (had a bagel and larson), not as well at lunch, overall doing better with eating. Brought pt Ensure to taste, which he toleratedwell. Malnutrition Assessment: Malnutrition Status: Severe malnutrition Context: Acute Illness Findings of the 6 clinical characteristics of malnutrition: Energy Intake: 7 - 50% or less of estimated energy requirements for 5 or more days Weight Loss: Unable to assess (weight is increased from UBW, ? Fluid-related gains) Body Fat Loss: 7 - Moderate body fat loss Orbital, Buccal region Muscle Mass Loss: 7 - Moderate muscle mass loss Temples (temporalis) Estimated Daily Nutrient Needs: Energy (kcal): 0724-1416; Weight Used for Energy Requirements: [place] Protein (g): 91-106; Weight Used for Protein Requirements: [place](1.2-.14g/kg) Fluid (ml/day): Per MD; Weight Used for Fluid Requirements: (N/A) Nutrition Related Findings: +23# /5 days. +I/O (~4.6L for LOS = ~10#) ? accuracy of prior weight. Trace BUE edema. +1 BLE edema. Active bowel sounds. Guillermo=19. Moderate muscle wasting/fat losses noted in pt face (mosque, buccal, eyes) BMP: Recent Labs 04/02/20 0117 04/03/20 0000 04/04/20 0040 NA 133* 136 136 K 3.7 3.8 3.8 CL 97* 99 99 CO2 29 28 28 BUN 49* 52* 51* CREATININE 1.56* 1.57* 1.60* GLUCOSE 116* 128* 134* CALCIUM 7.9* 8.0* 7.6* MG 2.3 2.5* 2.4* PHOS 3.1 3.4 3.2 HEPATIC: Recent Labs 04/02/2011604/03/20 0000 04/04/20 0040 AST 64* 88* 86* ALT 59* 84* 97* BILITOT 8.2* 7.5* 6.9* ALKPHOS 133* 197* 209* Wounds: Multiple, Surgical Wound Current Nutrition Therapies: Dietary Nutrition Supplements: Standard High Calorie Oral Supplement DIET GENERAL; Anthropometric Measures: Height: 5' 10 (177.8 cm) Current Body Weight: 188 lb 7.9 oz (85.5 kg)(04/04) Admission Body Weight: 182 lb (82.6 kg)(182# via standing scale documented on 03/21. 188# per pt) Usual Body Weight: (no weight hx) [place] Body Weight: 166 lbs; % [place] Body Weight 99.9 % BMI: 27 Adjusted Body Weight: ; No Adjustment BMI Categories: Overweight (BMI 25.0-29.9) Nutrition Diagnosis: Inadequate oral intake related to impaired respiratory function, inadequate protein-energy intake as evidenced by NPO or clear liquid status due to medical condition, intubation Severe malnutrition, In context of acute illness or injury related to inadequate protein-energy intake as evidenced by moderate muscle loss, moderate loss of subcutaneous fat(energy intake <50% estimated needs for > 5 days) Nutrition Interventions: Food and/or Nutrient Delivery: Continue Current Diet, Modify Oral Nutrition Supplement Nutrition Education/Counseling: Education initiated Coordination of Nutrition Care: Continued Inpatient Monitoring Goals: Pt will consume >50% at meals and ONS Nutrition Monitoring and Evaluation: Behavioral-Environmental Outcomes: Beliefs and Attitutes Food/Nutrient Intake Outcomes: Diet Advancement/Tolerance, Food and Nutrient Intake, Supplement Intake Physical Signs/Symptoms Outcomes: Biochemical Data, GI Status, Fluid Status or Edema, Nutrition Focused Physical Findings, Skin, Weight Discharge Planning: Too soon to determine Contact: pager [phone] * Cruz Salvador MD - 04/04/2020 12:38 PM EDT [facility] Progress Note SUBJECTIVE: Karen Kearns is a 79 y.o. male who is being followed by nephrology for ASHLEIGH/CKD . Any overnight events - CABG 03/26/2020 Medications Scheduled Meds: amiodarone 200 mg Oral BID furosemide 40 mg Oral BID heparin (porcine) 5,000 Units Subcutaneous Q12H aspirin 81 mg Oral Daily metoprolol tartrate 12.5 mg Oral BID sodium chloride flush 10 mL Intravenous 2 times per day polyethylene glycol 17 g Oral Daily sennosides-docusate sodium 2 tablet Oral Nightly Continuous Infusions: dextrose Prn Meds : guaiFENesin-dextromethorphan, acetaminophen, oxyCODONE-acetaminophen OR oxyCODONE-acetaminophen, melatonin, sodium chloride flush, calcium gluconate, ondansetron, potassium chloride, glucose, dextrose, glucagon (rDNA), dextrose Home Meds: No current facility-administered medications on file prior to encounter. Current Outpatient Medications on File Prior to Encounter Medication Sig Dispense Refill pantoprazole (PROTONIX) 40 MG tablet Take 40 mg by mouth daily aspirin 81 MG EC tablet Take 81 mg by mouth daily ramipril (ALTACE) 10 MG capsule Take 10 mg by mouth daily clopidogrel (PLAVIX) 75 MG tablet Take 75 mg by mouth daily OBJECTIVE Physical BP 129/61 Pulse 68 Temp 98.5 F (36.9 C) Resp 20 Ht 5' 10 (1.778 m) Wt 188 lb 8 oz (85.5 kg) SpO2 100% BMI 27.05 kg/m 24HR INTAKE/OUTPUT: Intake/Output Summary (Last 24 hours) at 04/04/2020 1238 Last data filed at 04/04/2020 1231 Gross per 24 hour Intake 600 ml Output 800 ml Net -200 ml General: AAO x 3, speaking in full sentences, no accessory muscle use. HEENT: Atraumatic, normocephalic, no throat congestion, moist mucosa. Eyes: Pupils equal, round and reactive to light, EOMI. Neck: No JVD, no thyromegaly, no lymphadenopathy. Chest: Bilateral vesicular breath sounds, no rales or wheezes. Cardiac: S1 S2 RR, no murmurs, gallops or rubs, JVP not raised. Abdomen: Soft, non-tender, no masses or organomegaly, BS audible. : No suprapubic or flank tenderness. Neuro: AAO x 3, No FND. SKIN: No rashes, good skin turgor. Data Last 3 CMP: Recent Labs 04/02/2011604/03/20 0000 04/04/20 0040 NA 133* 136 136 K 3.7 3.8 3.8 CL 97* 99 99 CO2 29 28 28 BUN 49* 52* 51* CREATININE 1.56* 1.57* 1.60* CALCIUM 7.9* 8.0* 7.6* PROT 5.9* 6.4 6.1* LABALBU 3.0* 3.4* 3.1* BILITOT 8.2* 7.5* 6.9* ALKPHOS 133* 197* 209* AST 64* 88* 86* ALT 59* 84* 97* Last 3 CBC: Recent Labs 04/02/2011604/03/20 0000 04/04/20 0040 WBC 13.1* 14.0* 13.5* RBC 2.95* 3.07* 2.77* HGB 8.9* 9.3* 8.5* HCT 26.7* 28.2* 25.2* MCV 90.7 92.0 90.9 MCH 30.3 30.2 30.5 MCHC 33.4 32.8 33.5 RDW 15.6* 15.7* 16.6* PLT 153 193 224 MPV 9.7 9.6 9.3 ASSESSMENT Patient Active Problem List Diagnosis Date Noted Postoperative depression 04/01/2020 Other constipation 04/01/2020 Hyperbilirubinemia Postoperative anemia due to acute blood loss 03/28/2020 Consumptive coagulopathy (HCC) 03/28/2020 Paroxysmal atrial fibrillation (HCC) 03/28/2020 S/P CABG (coronary artery bypass graft) Stress hyperglycemia CAD in [place] artery 03/22/2020 Hypertension Hyperlipidemia Chronic kidney disease GERD (gastroesophageal reflux disease) Coronary artery disease involving [place] coronary artery of [place] heart with angina pectoris ([facility]) ASSESSMENT/PLAN: ASHLEIGH likely prerenal CKD 3 baseline Scr 1.4 per outpatient records s/p CABGx3 ROTHMAN-LAD, SVG to RCA, SVG to Diag; Creatinine 1.60 Avoid nephrotoxins hypotension S/p lasix 40 mg IV xBID bp ok currently Cruz Salvador MD 04/04/2020 12:38 PM * Lorraine Burris, CUT LACE MACHINE OPERATOR - 04/04/2020 10:32 AM EDT Physical Therapy Facility/Department: [facility] Daily Treatment Note NAME: Karen Kearns : 1940 Date of Service: 04/04/2020 Discharge Recommendations: IP Rehab Assessment Body structures, Functions, Activity limitations: Decreased functional mobility ;Decreased endurance;Decreased strength Assessment: Pt present with the above deficits and overall requires CGA for functional activities. Pt declined to ambulate further due to fatigue and SOB today. Pt able to recall 3/3 sternal precautions and was compliant throughout tx. Continues to tolerate P&C exercises well. Continue to assess pt progress home with assist vs rehab upon discharge. REQUIRES PT FOLLOW UP: Yes Activity Tolerance Activity Tolerance: Patient limited by fatigue;Patient limited by endurance Patient Diagnosis(es): There were no encounter diagnoses. has a past medical history of Harmon's palsy, Chronic kidney disease, Diverticulosis of colon, GERD (gastroesophageal reflux disease), Hyperlipidemia, Hypertension, and Internal hemorrhoids. has a past surgical history that includes Rotator cuff repair (Right) and hernia repair. Restrictions Restrictions/Precautions Restrictions/Precautions: Fall Risk, General Precautions, Surgical Protocols, Weight Bearing Required Braces or Orthoses?: No Upper Extremity Weight Bearing Restrictions Other: sternal precautions Position Activity Restriction Sternal Precautions: No Pushing, No Pulling, 10# Lifting Restrictions Sternal Precautions: yes Other position/activity restrictions: . Subjective General Chart Reviewed: Yes Family / Caregiver Present: No Subjective Subjective: Pt reclined in chair, states it has been a rough morning, feels more SOB and tired today. He states he was doing so well yesterday and then today not so much. Pt agreeable to PT. Pain Screening Patient Currently in Pain: No Objective Transfers Sit to Stand: Contact guard assistance Stand to sit: Stand by assistance Comment: x 2 reps from chair Ambulation Ambulation?: Yes More Ambulation?: No Ambulation 1 Surface: level tile Device: ([employer]) Assistance: Contact guard assistance Gait Deviations: Decreased step length;Decreased step height Distance: 70ft x 2 with 1 standing rest break Comments: Pt with no episodes of LOB. Declined to ambulate further due to fatigue and SOB. Stairs/Curb Stairs?: No Exercises Upper Extremity: P&C ex #1-9 all x 10 reps each Other exercises Other exercises?: Yes Other exercises 1: I.S. x 10 reps 750mL AM-PAC Score Goals Short term goals Time Frame for Short term goals: 2 weeks Short term goal 1: bed mobility min. assist-not addressed Short term goal 2: transfers min. assist- goal met Short term goal 3: ambulate 150 ft, with device, min. assist (updated 03/30)-progressing Short term goal 4: supervision with P&C ex, IS, secretion clearance and understanding of walking program.-slowly progressing Short term goal 5: Curb step, mod of 1-not addressed Patient Goals Patient goals : eat better ice cream than at hospital Plan Plan Times per week: 5-6x/wk Plan weeks: 2 weeks Current Treatment Recommendations: Strengthening, Transfer Training, Balance Training, Gait Training, Functional Mobility Training, Home Exercise Program, Endurance Training Plan Comment: chest PT prn, post-op protocol Safety Devices Type of devices: Left in chair, Call light within reach, All fall risk precautions in place Restraints Initially in place: No Therapy Time Individual Concurrent Group Co-treatment Time In 953 Time Out 1010 Minutes 16 Timed Code Treatment Minutes: 16 Minutes(fa) Lorraine Burris PTA * Jeniffer Manzano, AUTO APPRENTICE MECHANIC - 04/04/2020 9:51 AM EDT Speech Language Pathology Facility/Department: [facility] Dysphagia Treatment Note NAME: Kaern Kearns : 1940 Patient Diagnosis(es): Patient Active Problem List Diagnosis Hypertension Hyperlipidemia Chronic kidney disease GERD (gastroesophageal reflux disease) Coronary artery disease involving [place] coronary artery of [place] heart with angina pectoris (HCC) CAD in [place] artery S/P CABG (coronary artery bypass graft) Stress hyperglycemia Postoperative anemia due to acute blood loss Consumptive coagulopathy (HCC) Paroxysmal atrial fibrillation (HCC) Hyperbilirubinemia Postoperative depression Other constipation Allergies: No Known Allergies Onset Date: 03/21/2020 Oxygen Level: Room Air COMPARISON: April 03, 2020 Cardiomegaly appears unchanged. Prior median sternotomy. Pulmonary vascular congestion and mild interstitial edema changes. Bibasilar pleural effusions and basilar infiltrate/atelectasis, minimally improved at the left lung base and similar on the right when compared tothe prior days exam. Osseous degenerative changes. Report Dictated on Workstation: [employer] --- Final --- Dictated: 04/04/2020 7:35 am Current Diet Level: Regular, thin liquids Pain: denies S: Pt seen while up in chair. Alert and cooperative O: Repeat clinical swallow evaluation following suspected aspiration event earlier today A: Notes reviewed- concern for aspiration of pill earlier today during medication administration. Pt states he may have had difficulty coordinating swallowing pill with coughing up secretions; denies history of dysphagia. Appetite slow to return. Occasional baseline dry cough did not appear to increase with po trials Oral Mechanism/Cranial Nerve Exam: CN V: Sensory: WFL Motor: WFL CN VII: reduced on left. Dx Harmon's Palsy approx 15 years ago CN IX/X: WFL CN XI: WFL CN XII: WFL Pt able to self-feed with appropriate rate and bolus size. Despite left-sided facial weakness there is adequate labial seal and no anterior spillage. Hyolaryngeal movement noted. No cough, throat clear or vocal quality change after continuous large-bore straw drinking- 3 oz total. Clinically, oropharyngeal swallow is unremarkable. Subclinical impairment cannot be excluded. If there is concern for impairment contributing prandialaspiration, suggest consider further evaluation via modified barium swallow study. Discussed with pt. [] Goal met [x] Progressing as expected [] Progressing slower than expected [] Medical status inhibits participation [] Goals not addressed this session [] Goals revised this session [] Unable to show any progress towards functional goals [] Progress towards functional goal is gradual / fair P: Continue regular diet and thin liquids. If there are any more concerns for prandial aspiration, consider modified barium swallow study An N95 mask, goggles and gloves were worn throughout this session. * Jacque Reis RN - 04/04/2020 6:36 AM EDT Patient choked and aspirated on morning protonix pill. Eyes rolled back and patient was briefly unresponsive, then responded What? NSR maintained on the gambling monitor during episode. Patient encouraged to cough and deep breathe. Crackles auscultated bilaterally. Patient c/o SOB. Pulse ox checked and patient satting 79% on RA. Placed on 2L NC and O2 saturation improved to 95% and SOB resolved. Missael Lacey notified of episode. States he will place order for another CXR. * Paul Lacey APRN - BAG TURNER - 04/04/2020 6:01 AM EDT Cardiothoracic Surgery Progress Note PATIENT NAME: Karen Kearns : 1940 (79 y.o.) TODAY'S DATE: 04/04/2020 Interval History: POD #11 Hiccups better overnight with baclophen - bilirubin 6.9 clearing - HGB 8.5, WBC 13.5- CXR clearing, creat stable at 1.6 - pt slept much better last night Last recorded/verified vitals in Epic Temp: 98.7 F (37.1 C) Pulse: 66 BP: (!) 115/52 Resp: 15 SpO2: 98 % Recent Labs 04/02/20 0117 04/03/20 0000 04/04/20 0040 WBC 13.1* 14.0* 13.5* HGB 8.9* 9.3* 8.5* PLT 153 193 224 NA 133* 136 136 K 3.7 3.8 3.8 CREATININE 1.56* 1.57* 1.60* CXR [x] Current Medications, pmHx, Allergies, and sHx reviewed and updated as appropriate Review of Systems Constitutional: Negative for chills, diaphoresis and fever. HENT: Negative for nosebleeds. Eyes: Negative for visual disturbance. Respiratory: Negative for cough, shortness of breath and wheezing. Cardiovascular: Negative for chest pain, palpitations and leg swelling. Gastrointestinal: Negative for abdominal pain, blood in stool, constipation, diarrhea, nausea and vomiting. Genitourinary: Negative for hematuria. Musculoskeletal: Negative for myalgias. Skin: Negative for rash. Neurological: Negative for dizziness and syncope. Hematological: Does not bruise/bleed easily. Psychiatric/Behavioral: Negative for dysphoric mood and suicidal ideas. Denies Depression Physical Exam Vitals signs reviewed. Constitutional: General: He is not in acute distress. Appearance: Normal appearance. He is well-developed. He is not diaphoretic. HENT: Head: Normocephalic and atraumatic. Mouth/Throat: Pharynx: No oropharyngeal exudate. Eyes: General: No scleral icterus. Right eye: No discharge. Left eye: No discharge. Pupils: Pupils are equal, round, and reactive to light. Neck: Musculoskeletal: Normal range of motion. Thyroid: No thyromegaly. Vascular: No JVD. Cardiovascular: Rate and Rhythm: Normal rate and regular rhythm. Chest Wall: PMI is not displaced. Pulses: Normal pulses. Heart sounds: Normal heart sounds. No murmur. No gallop. Pulmonary: Effort: No accessory muscle usage or respiratory distress. Breath sounds: Normal breath sounds. No wheezing or rales. Abdominal: General: Bowel sounds are normal. There is no distension or abdominal bruit. Palpations: Abdomen is soft. There is no shifting dullness or hepatomegaly. Tenderness: There is no abdominal tenderness. Musculoskeletal: Normal range of motion. General: No deformity. Skin: General: Skin is warm and dry. Findings: No rash. Neurological: Mental Status: He is alert and oriented to person, place, and time. Cranial Nerves: No cranial nerve deficit. Sensory: No sensory deficit. Psychiatric: Thought Content: Thought content normal. Assessment/Plan Patient Active Problem List Diagnosis Code Hypertension I10 Hyperlipidemia E78.5 Chronic kidney disease N18.9 GERD (gastroesophageal reflux disease) K21.9 Coronary artery disease involving [place] coronary artery of [place] heart with angina pectoris (HCC)I25.119 CAD in [place] artery I25.10 S/P CABG (coronary artery bypass graft) Z95.1 Stress hyperglycemia R73.9 Postoperative anemia due to acute blood loss D62 Consumptive coagulopathy (HCC) D65 Paroxysmal atrial fibrillation (HCC) I48.0 Hyperbilirubinemia E80.6 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, F32.9 Other constipation K59.09 1. MVCAD: Status post CABGx3 ROTHMAN-LAD, SVG to RCA, SVG to Diag; left leg EVH; s/p take back to OR for bleeding on 03/26/20 - continue supportive care - cannot go to rehab due to insurance will plan to keep until day 14 then decide on placement - rather than committing him to a rehab facility. - pill aspiration will plan repeat CXR - DC daily CXR - Cut Amiodarone to 200mg BID 2. Post op Pulm. Mgmt/Resp Failure: now on RA doing well 3. Post op A fib: Current NSR 70's. On po amiodarone 200 mg BID. Metoprolol tartrate 12.5 mg BID 4. Hyperbilirubinemia: - GI signed off. This is clearing 5. ASHLEIGH on CKD: Creat stable will continue lasix 40 mg BID today 6. Blood loss Anemia: Hgb: 8.5 Stable. No s/s bleeding. Continue to monitor CBC 7. Dysphagia: Speech followed. Taking diet /thin liquids- but poor intake. Calorie count in place -had pill aspiration this am will ask speech to see him again. 8. Acute post op pain: On scheduled percocet prn 9. GI/DVT prophylaxis: PPI/SCD/Teds sq heparin 10. Deconditioned: PT/OT working with pt 11. Disposition: [facility] fully home by POD 14 Blood Conservation Initiative Log: - 03/26 multiple blood products intraop/post op due to bleeding. Disclaimer ? INFORMED CONSENT:The nature and purpose of the proposed treatment or procedure have been discussed. The risks and benefits of the proposed treatment or procedures have been reviewed. Alternatives have been reviewed in addition to the risks and benefits of not receiving treatments or undergoing procedures. Pursuant to this discussion, the patient agrees to undergo the proposed treatment or procedure. ? Captured images seen in this note from are not a substitute for a comprehensive interpretation ofthe entire data set as reflected by the interpreting physician with regard to radiology, echocardiography, and other diagnostic images. ? This note may have been dictated using [employer] Medical Practice Edition 2.6 and/or [employer] Voice Recognition Feature. The document was proofread, however unrecognized voice recognition material handling technician errors may be present. * Cruz Salvador MD - 04/03/2020 8:18 PM EDT [facility] Progress Note SUBJECTIVE: Karen Kearns is a 79 y.o. male who is being followed by nephrology for ASHLEIGH/CKD . Any overnight events - CABG 03/26/2020 Medications Scheduled Meds: furosemide 20 mg Oral BID metoclopramide 10 mg Oral BID amiodarone 400 mg Oral BID heparin (porcine) 5,000 Units Subcutaneous Q12H aspirin 81 mg Oral Daily metoprolol tartrate 12.5 mg Oral BID pantoprazole 40 mg Oral QAM AC sodium chloride flush 10 mL Intravenous 2 times per day polyethylene glycol 17 g Oral Daily sennosides-docusate sodium 2 tablet Oral Nightly Continuous Infusions: dextrose Prn Meds : guaiFENesin-dextromethorphan, acetaminophen, oxyCODONE-acetaminophen OR oxyCODONE-acetaminophen, melatonin, sodium chloride flush, potassium chloride, calcium gluconate, ondansetron, potassium chloride, albumin human, sodium chloride, glucose, dextrose, glucagon (rDNA), dextrose Home Meds: No current facility-administered medications on file prior to encounter. Current Outpatient Medications on File Prior to Encounter Medication Sig Dispense Refill pantoprazole (PROTONIX) 40 MG tablet Take 40 mg by mouth daily aspirin 81 MG EC tablet Take 81 mg by mouth daily ramipril (ALTACE) 10 MG capsule Take 10 mg by mouth daily clopidogrel (PLAVIX) 75 MG tablet Take 75 mg by mouth daily OBJECTIVE Physical BP 129/62 Pulse 72 Temp 98.5 F (36.9 C) (Oral) Resp 16 Ht 5' 10 (1.778 m) Wt 188 lb 12.8oz (85.6 kg) SpO2 92% BMI 27.09 kg/m 24HR INTAKE/OUTPUT: Intake/Output Summary (Last 24 hours) at 04/03/2020 2018 Last data filed at 04/03/2020 1602 Gross per 24 hour Intake 600 ml Output 1150 ml Net -550 ml General: AAO x 3, speaking in full sentences, no accessory muscle use. HEENT: Atraumatic, normocephalic, no throat congestion, moist mucosa. Eyes: Pupils equal, round and reactive to light, EOMI. Neck: No JVD, no thyromegaly, no lymphadenopathy. Chest: Bilateral vesicular breath sounds, no rales or wheezes. Cardiac: S1 S2 RR, no murmurs, gallops or rubs, JVP not raised. Abdomen: Soft, non-tender, no masses or organomegaly, BS audible. : No suprapubic or flank tenderness. Neuro: AAO x 3, No FND. SKIN: No rashes, good skin turgor. Data Last 3 CMP: Recent Labs 04/01/205004/02/2011604/03/20 0000 NA 135 133* 136 K 3.6 3.7 3.8 CL 98 97* 99 CO2 29 29 28 BUN 50* 49* 52* CREATININE 1.72* 1.56* 1.57* CALCIUM 8.0* 7.9* 8.0* PROT 6.0* 5.9* 6.4 LABALBU 3.2* 3.0* 3.4* BILITOT 10.6* 8.2* 7.5* ALKPHOS 88 133* 197* AST 61* 64* 88* ALT 42 59* 84* Last 3 CBC: Recent Labs 04/01/205004/02/20 0117 04/03/20 0000 WBC 11.4* 13.1* 14.0* RBC 3.05* 2.95* 3.07* HGB 9.3* 8.9* 9.3* HCT 27.6* 26.7* 28.2* MCV 90.4 90.7 92.0 MCH 30.4 30.3 30.2 MCHC 33.6 33.4 32.8 RDW 15.6* 15.6* 15.7* PLT 124* 153 193 MPV 9.2 9.7 9.6 ASSESSMENT Patient Active Problem List Diagnosis Date Noted Postoperative depression 04/01/2020 Other constipation 04/01/2020 Hyperbilirubinemia Postoperative anemia due to acute blood loss 03/28/2020 Consumptive coagulopathy (HCC) 03/28/2020 Paroxysmal atrial fibrillation (HCC) 03/28/2020 S/P CABG (coronary artery bypass graft) Stress hyperglycemia CAD in [place] artery 03/22/2020 Hypertension Hyperlipidemia Chronic kidney disease GERD (gastroesophageal reflux disease) Coronary artery disease involving [place] coronary artery of [place] heart with angina pectoris (HCC) ASSESSMENT/PLAN: ASHLEIGH likely prerenal CKD 3 baseline Scr 1.4 per outpatient records s/p CABGx3 ROTHMAN-LAD, SVG to RCA, SVG to Diag; Creatinine 1.57 Avoid nephrotoxins hypotension S/p lasix 40 mg IV x1 bp ok currently Cruz Salvador MD 04/03/2020 8:18 PM * Lorraine Burris, CUT LACE MACHINE OPERATOR - 04/03/2020 2:07 PM EDT Physical Therapy Facility/Department: [facility] Daily Treatment Note NAME: Karen Kearns : 1940 Date of Service: 04/03/2020 Discharge Recommendations: IP Rehab Assessment Body structures, Functions, Activity limitations: Decreased functional mobility ;Decreased endurance;Decreased strength;Decreased balance;Decreased ROM Assessment: Pt present with the above deficits. CGA for transfer. Improved endurance and increased ROM with P&C exercises. Pt able to recall sternal precuautions. Did not trial gait today due to pt just ambulating with RN. Rec rehab upon discharge. REQUIRES PT FOLLOW UP: Yes Activity Tolerance Activity Tolerance: Patient Tolerated treatment well Patient Diagnosis(es): There were no encounter diagnoses. has a past medical history of Harmon's palsy, Chronic kidney disease, Diverticulosis of colon, GERD (gastroesophageal reflux disease), Hyperlipidemia, Hypertension, and Internal hemorrhoids. has a past surgical history that includes Rotator cuff repair (Right) and hernia repair. Restrictions Restrictions/Precautions Restrictions/Precautions: Fall Risk, General Precautions, Surgical Protocols, Weight Bearing Required Braces or Orthoses?: No Upper Extremity Weight Bearing Restrictions Other: sternal precautions Position Activity Restriction Sternal Precautions: No Pushing, No Pulling, 10# Lifting Restrictions Sternal Precautions: yes Other position/activity restrictions: . Subjective General Chart Reviewed: Yes Family / Caregiver Present: No Subjective Subjective: Pt reclined in chair and agreeable to PT. Pt stated he just walked 20 mins prior to this PTAs arrival. General Comment Comments: CAD, CABG x 3; pt 2L O2 (all chest tubes d/c); pt with some jaundice, but approx from zygoma and superiorly Pain Screening Patient Currently in Pain: No Objective Transfers Sit to Stand: Contact guard assistance Stand to sit: Contact guard assistance Comment: x 1 from chair Ambulation Ambulation?: No(Pt declined due to just ambulating with RN) Balance Comments: static standing with no UE support, pt with wide PJ, cues to correct and pt compliant, CGA for balance. Exercises Upper Extremity: P&C ex #1-9 all x 10 reps each Comments: Pt with improved endurance and increased ROM. Other exercises Other exercises 1: I.S. x 10 reps 750mL AM-PAC Score Goals Short term goals Time Frame for Short term goals: 2 weeks Short term goal 1: bed mobility min. assist-not addressed Short term goal 2: transfers min. assist- goal met Short term goal 3: ambulate 150 ft, with device, min. assist (updated 03/30)-not addressed Short term goal 4: supervision with P&C ex, IS, secretion clearance and understanding of walking program.-slowly progressing Short term goal 5: Curb step, mod of 1-not addressed Patient Goals Patient goals : eat better ice cream than at hospital Plan Plan Times per week: 5-6x/wk Plan weeks: 2 weeks Current Treatment Recommendations: Strengthening, Transfer Training, Balance Training, Gait Training, Functional Mobility Training, Home Exercise Program, Endurance Training Plan Comment: chest PT prn, post-op protocol Safety Devices Type of devices: Left in chair, Call light within reach, All fall risk precautions in place Restraints Initially in place: No Therapy Time Individual Concurrent Group Co-treatment Time In 1330 Time Out 1340 Minutes 10 Timed Code Treatment Minutes: 10 Minutes(tp) Lorraine Burris PTA * Virginia Aguero MD - 04/03/2020 7:21 AM EDT Critical Care Progress Note 04/03/2020 7:21 AM Subjective: Admit Date: 03/21/2020 PCP: KEVYN SIM MD CABG Interval History: - CABGx3 + takeback for bleeding 03/26 - confusion cleared - hiccups intermittently Reports feeling better this morning. Slowly increasing PO intake. Out of bed, up to chair. Passing flatus. Diet: Dietary Nutrition Supplements: Standard High Calorie Oral Supplement DIET GENERAL; Medications: Scheduled Meds: furosemide 20 mg Oral BID metoclopramide 10 mg Oral BID amiodarone 400 mg Oral BID heparin (porcine) 5,000 Units Subcutaneous Q12H aspirin 81 mg Oral Daily metoprolol tartrate 12.5 mg Oral BID pantoprazole 40 mg Oral QAM AC sodium chloride flush 10 mL Intravenous 2 times per day polyethylene glycol 17 g Oral Daily sennosides-docusate sodium 2 tablet Oral Nightly Continuous Infusions: dextrose Objective: Vitals: Temp (24hrs), Av.6 F (37 C), Min:98.4 F (36.9 C), Max:99 F (37.2 C) BP (!) 141/57 Pulse 69 Temp 98.6 F (37 C) (Oral) Resp 20 Ht 5' 10 (1.778 m) Wt 188 lb 12.8 oz (85.6 kg) SpO2 97% BMI 27.09 kg/m I/O: 04/02 0701 - 04/03 0700 In: 1060 [P.O.:1050; I.V.:10] Out: 2300 [Urine:2300] CVP: CVP (Mean): 11 mmHg Invasive Lines: - PIVs PHYSICAL EXAM: General Appearance: [x]WDWN []Obese []Cachectic []Thin [x]ill Skin: Temperature [x]Warm []Cool / Rash []Yes [x]No / Tattoo(s) []Yes [x]No - jaundiced: improving -sternotomy c/d/i Heent: Pupils round and react [x]Yes []No Sclera [x]Icteric []Non-Icteric Conjunctiva []Injected [x]Non-Injected / Pinnae [x]Normal []Other/ Dentitian [][place] Teeth []Dentures Oral Mucosa [][place] [x]Moist []Dry/ Oral ETT []Present [x]Absent Neck: Trachea midline [x]Yes []No/ Thyromegaly []Yes []No/ Crepitus []Present [x]Absent /Jvd []Present []Absent Lungs: [x]Clear []Crackles []Wheezes []Rhonchi / Respiratory effort []Labored [x]Non-Labored Heart: [x]RRR []Irregularly Irregular []murmur present []murmur absent/ Peripheral Edema [x]Absent [x]Present Abdomen: [x]Soft Bowel Sounds [x]Present []Absent []Diminished []Hyperactive []Hypoactive []Tender [x]Non-Tender []Distended [x]Non-distended / Hernia []Present []Absent / Organomegaly [x]Absent []Present/ []Scar Extremities: Cyanosis []Present [x]Absent/ CARDOZA ([x]RUE [x]RLE [x]LUE [x]LLE) Neurologic: EGEGIK [x]Yes []No Corneal reflexes []Present []Absent / Plantar reflexes []Up []Down []Absent / Withdraws to tactile [x]Yes []No/ Follows Commands [x]Yes []No []Unresponsive to verbal Psych: Alert [x]yes []no: Oriented []x0 []x1 []x2 []x3 / Affect [x]Normal []Flat []Aggitated [x]Calm []Sedated []NAD Labs: BMP: Recent Labs 04/01/20 0051 04/02/20 0117 04/03/20 0000 NA 135 133* 136 K 3.6 3.7 3.8 CL 98 97* 99 CO2 29 29 28 BUN 50* 49* 52* CREATININE 1.72* 1.56* 1.57* GLUCOSE 93 116* 128* . Ionized Calcium: Lab Results Component Value Date IONCA 4.20 03/29/2020 IONCA 4.50 03/28/2020 Hepatic: Recent Labs 04/02/20 0117 04/03/20 0000 AST 64* 88* ALT 59* 84* BILITOT 8.2* 7.5* ALKPHOS 133* 197* Troponin: No results for input(s): TROPONINI in the last 72 hours. Lactate: Lab Results Component Value Date LACTA 0.9 03/29/2020 LACTA 1.0 03/28/2020 LACTA 0.9 03/28/2020 ABG: No results for input(s): PH, PCO2, PO2 in the last 72 hours. CBC: Recent Labs 04/02/20 0117 04/03/20 0000 WBC 13.1* 14.0* HGB 8.9* 9.3* PLT 153 193 CK: No results for input(s): CKTOTAL in the last 72 hours. BNP: No results for input(s): BNP in the last 72 hours. INR: No results for input(s): INR in the last 72 hours. CORTISOL: No results for input(s): CORTISOL in the last 72 hours. TSH: No results for input(s): TSH in the last 72 hours. PROCALCITONIN: No results for input(s): PROCAL in the last 72 hours. LIPIDS: No results for input(s): CHOL, HDL in the last 72 hours. Invalid input(s): LDLCALCU UA: Recent Labs 04/02/20 1611 COLORU Dark-Yellow* WBCUA 3-5 RBCUA 0-2 BACTERIA Negative LEUKOCYTESUR 75* UROBILINOGEN 4* BILIRUBINUR 0.5* GLUCOSEU Normal Cultures: No results for input(s): LABURIN in the last 72 hours. No results for input(s): BC in the last 72 hours. No results for input(s): BLOODCULT2 in the last 72 hours. No results for input(s): CULTRESP in the last 72 hours. No results for input(s): CXCATHTIP in the last 72 hours. No results for input(s): LEGUR in the last 72 hours. Invalid input(s): STREPPNEUMAGU No results for input(s): LABGRAM in the last 72 hours. Films: CXR portable: Results for orders placed during the hospital encounter of 03/21/20 XR CHEST PORTABLE Narrative Patient Name: KAREN KEARNS ---Diagnostic Radiology--- Exam Date/Time 03/26/2020 21:10:12 EDT Exam CR Chest Portable Ordering Physician [id number] ANGELY AC Accession Number [id number] CPT4 Codes 82118 () Reason For Exam post operative Report SINGLE FRONTAL VIEW OF THE CHEST CLINICAL INDICATION: post operative TECHNIQUE: Single frontal view of the chest COMPARISON: 03/26/2020 FINDINGS: Endotracheal tube tip 6.1 cm above the bert. Blair-Dhaval catheter tip is in the proximal right pulmonary artery. NG tube tip is not included on the study but is at least as far distal as the gastric fundus. No pneumothorax seen. There appear to be mediastinal drains there is extensive overlapping tubing in wiring. Left chest tube terminates apically. No definite pneumothorax seen. Mild right basilar atelectasis or infiltrate. Left lung is small compared to the right, similar to yesterday's study. IMPRESSION: 1. Tubes and lines as described. Right basilar atelectasis or infiltrate. 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 Receiving Reglan past 2 days. - KUB on 04/01 without acute issues - Having liquid stools - monitor for hypoglycemia: add gentle D5 IVF vs NGT w/TF if hypoglycemia occurs with decreased PO intake -Speech consulted. AFib w/RVR - remains in NSR this AM off amio >24h - on bblocker, NSR - trend electrolytes, replace as needed hemorrhagic shock: resolved acute blood loss anemia consumptive coagulopathy - laurie smear resulted c/w acute blood loss, some schistocytes also seen - thrombocytopenia steadily improving, hgb stable w/o transfusions>48h Hyperbilirubinemia - bili continues to trend down and jaundice slowly improving - GI eval'd: agree likely acute and likely 2/2 hemolysis with initial hemorrhagic shock/multiple blood product transfusion (c/w perismear results as well as above). Signed off - if bili doesn't continue to trend down in acute post-op setting, can consider further w/u for underlying liver disease such as Gilbert's ASHLEIGH on CKD - Nephro consult. ASHLEIGH likely prerenal. Improving Cr/BUN. Can use PRN diuretics -Renal US - repeat urine studies today (previous FEUrea c/w intrinsic renal disease) - continue to avoid nephrotoxins and monitor UOP as able (newman out, does not tolerate external cath) Acute metabolic encephalopathy / delirium / post-op depression - limit sedating medications as much as possible - nonpharm delirium interventions: redirect, reinforce day/night cycles - CLP consulted per CTS due to reported suicidal ideation per nursing, patient denied medical management. CLP recommended melatonin to help with sleep HTN HPL - metoprolol PO - hold statins pending improvement in LFTs/bili Prophylaxis: Stress ulcer: [x] PPI Agent [] H2RA [] Sucralfate [] Other: VTE: [] Enoxaparin [x] SC Heparin [x] SCD Full Code Excluding procedures, the total critical care time caring for this patient with life threatening, unstable organ failure, including direct patient contact, review of medical record, management of life support systems, review of data including imaging and labs, discussions with other team members, patient's family and physicians at least 33 minutes so far today. Will sign off. Please re-consult or call with any critical care questions. Thank you for letting meparticipate in the care of this patient. * Kael Kearns APRN - SEAT COVER CUTTER - 04/03/2020 6:00 AM EDT Cardiothoracic Surgery Progress Note 04/03/2020 Subjective: Admit Date: 03/21/2020 Interval History: S/P CABG x3 on 03/26/20 w/return to OR for bleeding-POD#8- No issues over night. Subjective: Up in chair. States had BM yesterday. Tired of the hiccups. Objective: Vitals: Temp (24hrs), Av.6 F (37 C), Min:98.4 F (36.9 C), Max:99 F (37.2 C) BP (!) 141/57 Pulse 69 Temp 98.6 F (37 C) (Oral) Resp 20 Ht 5' 10 (1.778 m) Wt 188 lb 12.8 oz (85.6 kg) SpO2 97% BMI 27.09 kg/m I/O: +BM Date 04/03/20 0000 - 04/03/20 2359 Shift 3347-2755 3098-7196 7230-5122 24 Hour Total INTAKE Shift Total(mL/kg) OUTPUT Urine(mL/kg/hr) 550 550 Shift Total(mL/kg) 550(6.4) 550(6.4) Weight (kg) 85.6 85.6 85.6 85.6 Weights: Patient Vitals for the past 96 hrs (Last 3 readings): Weight 04/03/20 0500 188 lb 12.8 oz (85.6 kg) 04/02/20 0110 190 lb (86.2 kg) 03/30/20 2159 196 lb 3.4 oz (89 kg) Labs: BMP: Recent Labs 04/01/20 0051 04/02/20 0117 04/03/20 0000 NA 135 133* 136 K 3.6 3.7 3.8 CL 98 97* 99 CO2 29 29 28 BUN 50* 49* 52* CREATININE 1.72* 1.56* 1.57* GLUCOSE 93 116* 128* . CBC: Recent Labs 04/01/20 0051 04/02/20 0117 04/03/20 0000 WBC 11.4* 13.1* 14.0* RBC 3.05* 2.95* 3.07* HGB 9.3* 8.9* 9.3* HCT 27.6* 26.7* 28.2* MCV 90.4 90.7 92.0 MCH 30.4 30.3 30.2 MCHC 33.6 33.4 32.8 RDW 15.6* 15.6* 15.7* PLT 124* 153 193 MPV 9.2 9.7 9.6 Hepatic: Recent Labs 04/02/20 0117 04/03/20 0000 AST 64* 88* ALT 59* 84* BILITOT 8.2* 7.5* ALKPHOS 133* 197* INR: Lab Results Component Value Date PROTIME 13.0 03/29/2020 INR 1.2 03/29/2020 Films: CXR portable: pending Physical Exam: Physical Exam Constitutional: General: He is not in acute distress. Appearance: Normal appearance. He is well-developed. He is not diaphoretic. HENT: Head: Normocephalic and atraumatic. Nose: Nose normal. Mouth/Throat: Mouth: Mucous membranes are moist. Eyes: Pupils: Pupils are equal, round, and reactive to light. Neck: Musculoskeletal: Normal range of motion and neck supple. Vascular: No JVD. Cardiovascular: Rate and Rhythm: Normal rate and regular rhythm. Pulses: Dorsalis pedis pulses are 2+ on the right side and 2+ on the left side. Heart sounds: Normal heart sounds, S1 normal and S2 normal. No murmur. No friction rub. No gallop. Pulmonary: Effort: Pulmonary effort is normal. No respiratory distress. Breath sounds: No stridor. Rales (left base posteriorly) present. Comments: Productive cough (clear secretions) Abdominal: General: Bowel sounds are normal. There is no distension. Palpations: Abdomen is soft. Tenderness: There is no abdominal tenderness. Musculoskeletal: Normal range of motion. General: No tenderness. Skin: General: Skin is warm and dry. Coloration: Skin is jaundiced. Comments: Sternotomy incision intact with no signs of infection. Neurological: Mental Status: He is alert and oriented to person, place, and time. Psychiatric: Mood and Affect: Mood normal. Behavior: Behavior normal. Thought Content: Thought content normal. Judgment: Judgment normal. Medications: Scheduled Meds: furosemide 20 mg Oral BID metoclopramide 10 mg Oral BID amiodarone 400 mg Oral BID heparin (porcine) 5,000 Units Subcutaneous Q12H aspirin 81 mg Oral Daily metoprolol tartrate 12.5 mg Oral BID pantoprazole 40 mg Oral QAM AC sodium chloride flush 10 mL Intravenous 2 times per day polyethylene glycol 17 g Oral Daily sennosides-docusate sodium 2 tablet Oral Nightly Continuous Infusions: dextrose Home Meds: Prior to Admission medications Medication Sig Start Date End Date Taking? Authorizing Provider pantoprazole (PROTONIX) 40 MG tablet Take 40 mg by mouth daily Yes Historical Provider, aspirin 81 MG EC tablet Take 81 mg by mouth daily Yes Historical Provider, ramipril (ALTACE) 10 MG capsule Take 10 mg by mouth daily Yes Historical Provider, clopidogrel (PLAVIX) 75 MG tablet Take 75 mg by mouth daily Yes Historical Provider, Diet: Dietary Nutrition Supplements: Standard High Calorie Oral Supplement DIET GENERAL; Problem List: Principal Problem: Coronary artery disease involving [place] coronary artery of [place] heart with angina pectoris (HCC) Active Problems: Hypertension Hyperlipidemia Chronic kidney disease GERD (gastroesophageal reflux disease) CAD in [place] artery S/P CABG (coronary artery bypass graft) Stress hyperglycemia Postoperative anemia due to acute blood loss Consumptive coagulopathy (HCC) Paroxysmal atrial fibrillation (HCC) Hyperbilirubinemia Postoperative depression Other constipation Resolved Problems: * No resolved hospital problems. * Assessment and Plan: 1. MVCAD: Status post CABGx3 ROTHMAN-LAD, SVG to RCA, SVG to Diag; left leg EVH; s/p take back to OR for bleeding on 03/26/20 -EF 83% on limited echo 03/27/20 -Core Medication: [x]ASA [x]BB [] Statin (held r/t^LFT) [] ACEi/ARB EF>40% -Anticoagulation: n/a 2. Post op Pulm. Mgmt/Resp Failure: now on RA-92%. CXR: still pending during round with Dr. Vallecillo.Start Lasix 20 mg BID today.Continue C&DB, Enc use of IS. 3. Post op A fib: Current NSR 60's. On po amiodarone 400 mg BID. Metoprolol tartrate 12.5 mg BID. 4. Hyperbilirubinemia: Bilirubin 7.2 Trending down from 9.3 Pt jaundice. Continue LFT's, GI signed off. 5. Leukocytosis: WBC 14 trending back up after had trended down. Afebrile. Has prod cough w/ clear secretions. Will add sputum cx Continue to monitor labs. 6. ASHLEIGH on CKD: Creatinine 1.57 U/O 2.3L last 24 hrs. Continue monitor BMP 7. Blood loss Anemia: Hgb: 9.3 Stable. No s/s bleeding. Continue to monitor CBC 8. Poor intake: On last day of calorie count. Intake improving over the last few days 9. Persistent Hiccups: Bacoflen x1 po today. On reglan x 2 days. 10. Depressed mood: CLP followed. Pt declined med mgmt/or outpatient services. Added melatonin for sleep. 11. Acute post op pain: On scheduled percocet prn 12. GI/DVT prophylaxis: PPI/SCD/Teds sq heparin 13. Deconditioned: PT/OT working with pt. Recommending facility based rehab. Able to ambulate ~600 ft w/nursing this am. 14. Disposition: Continue progressive care in [facility] Blood Conservation Initiative Log: - 03/26 multiple blood products intraop/post op due to bleeding. Associated attestation - Angely Vallecillo MD - 04/03/2020 9:20 AM EDT I personally performed a face to face diagnostic evaluation on this patient. I agree with the findings and plan of care as documented by the resident/SEAT COVER CUTTER/FUNERAL SERVICE APPRENTICE/PA, unless otherwise noted. Clinical status improving Was able to eat better. Dobhoff tube not off the table for now, will continue calorie counts. LFTs and WBC increasing, no fevers, no abdominal pain, bili decreasing. Trend for now. Continued diuresis Continue inpatient therapy Hiccups still bothersome. Try baclofen again today, seemed to provide some relief. Ok to shower He is not ready for discharge and requires continued inpatient admission. Angely Vallecillo MD Cardiothoracic Surgery * Lorraine Burris, CUT LACE MACHINE OPERATOR - 04/02/2020 2:56 PM EDT Physical Therapy Facility/Department: [facility] Daily Treatment Note NAME: Karen Kearns : 1940 Date of Service: 04/02/2020 Discharge Recommendations: IP Rehab Assessment Body structures, Functions, Activity limitations: Decreased functional mobility ;Decreased endurance;Decreased strength;Decreased balance;Decreased ROM Assessment: Pt present with the above deficits. Tolerated P&C ex well with no increase in pain.Cues to increase ROM. Pt unable to recall sternal precautions, education provided. Rec rehab upon discharge. REQUIRES PT FOLLOW UP: Yes Activity Tolerance Activity Tolerance: Patient Tolerated treatment well Patient Diagnosis(es): There were no encounter diagnoses. has a past medical history of Harmon's palsy, Chronic kidney disease, Diverticulosis of colon, GERD (gastroesophageal reflux disease), Hyperlipidemia, Hypertension, and Internal hemorrhoids. has a past surgical history that includes Rotator cuff repair (Right) and hernia repair. Restrictions Restrictions/Precautions Restrictions/Precautions: Fall Risk, General Precautions, Surgical Protocols, Weight Bearing Required Braces or Orthoses?: No Upper Extremity Weight Bearing Restrictions Other: sternal precautions Position Activity Restriction Sternal Precautions: No Pushing, No Pulling, 10# Lifting Restrictions Sternal Precautions: yes Subjective General Chart Reviewed: Yes Family / Caregiver Present: No Subjective Subjective: Pt reclined in chair, RN at bedside and just ambulated pt. Pt agreeable to P&C ex. General Comment Comments: CAD, CABG x 3; pt 2L O2 (all chest tubes d/c); pt with some jaundice, but approx from zygoma and superiorly Pain Screening Patient Currently in Pain: Denies Vital Signs Patient Currently in Pain: Denies Objective Exercises Upper Extremity: P&C ex #1-9 all x 10 reps each Comments: rest breaks and cues on ROM. Other exercises Other exercises?: Yes Other exercises 1: I.S. x 10 reps 1,000mL AM-PAC Score Goals Short term goals Time Frame for Short term goals: 2 weeks Short term goal 1: bed mobility min. assist-not addressed Short term goal 2: transfers min. assist-not addressed Short term goal 3: ambulate 150 ft, with device, min. assist (updated 03/30)-progressing Short term goal 4: supervision with P&C ex, IS, secretion clearance and understanding of walking program.-slowly progressing Short term goal 5: Curb step, mod of 1-not appropriate yet Patient Goals Patient goals : eat better ice cream than at hospital Plan Plan Times per week: 5-6x/wk Plan weeks: 2 weeks Current Treatment Recommendations: Strengthening, Transfer Training, Balance Training, Gait Training, Functional Mobility Training, Home Exercise Program, Endurance Training Plan Comment: chest PT prn, post-op protocol Safety Devices Type of devices: Left in chair, Call light within reach Restraints Initially in place: No Therapy Time Individual Concurrent Group Co-treatment Time In 1351 Time Out 1405 Minutes 14 Timed Code Treatment Minutes: 14 Minutes(tp) Lorraine Burris PTA * Cruz Salvador MD - 04/02/2020 1:26 PM EDT [facility] Progress Note SUBJECTIVE: Karen Kearns is a 79 y.o. male who is being followed by nephrology for ASHLEIGH/CKD . Any overnight events - CABG 03/26/2020 Medications Scheduled Meds: metoclopramide 10 mg Oral BID amiodarone 400 mg Oral BID heparin (porcine) 5,000 Units Subcutaneous Q12H aspirin 81 mg Oral Daily metoprolol tartrate 12.5 mg Oral BID pantoprazole 40 mg Oral QAM AC sodium chloride flush 10 mL Intravenous 2 times per day polyethylene glycol 17 g Oral Daily sennosides-docusate sodium 2 tablet Oral Nightly Continuous Infusions: dextrose Prn Meds : guaiFENesin-dextromethorphan, acetaminophen, oxyCODONE-acetaminophen OR oxyCODONE-acetaminophen, melatonin, sodium chloride flush, potassium chloride, calcium gluconate, ondansetron, potassium chloride, albumin human, sodium chloride, glucose, dextrose, glucagon (rDNA), dextrose Home Meds: No current facility-administered medications on file prior to encounter. Current Outpatient Medications on File Prior to Encounter Medication Sig Dispense Refill pantoprazole (PROTONIX) 40 MG tablet Take 40 mg by mouth daily aspirin 81 MG EC tablet Take 81 mg by mouth daily ramipril (ALTACE) 10 MG capsule Take 10 mg by mouth daily clopidogrel (PLAVIX) 75 MG tablet Take 75 mg by mouth daily OBJECTIVE Physical BP (!) 99/44 Pulse 60 Temp 98.4 F (36.9 C) (Oral) Resp 23 Ht 5' 10 (1.778 m) Wt 190 lb (86.2 kg) SpO2 96% BMI 27.26 kg/m 24HR INTAKE/OUTPUT: Intake/Output Summary (Last 24 hours) at 04/02/2020 1327 Last data filed at 04/02/2020 0202 Gross per 24 hour Intake 460 ml Output 550 ml Net -90 ml General: AAO x 3, speaking in full sentences, no accessory muscle use. HEENT: Atraumatic, normocephalic, no throat congestion, moist mucosa. Eyes: Pupils equal, round and reactive to light, EOMI. Neck: No JVD, no thyromegaly, no lymphadenopathy. Chest: Bilateral vesicular breath sounds, no rales or wheezes. Cardiac: S1 S2 RR, no murmurs, gallops or rubs, JVP not raised. Abdomen: Soft, non-tender, no masses or organomegaly, BS audible. : No suprapubic or flank tenderness. Neuro: AAO x 3, No FND. SKIN: No rashes, good skin turgor. Data Last 3 CMP: Recent Labs 03/31/20504/01/205004/02/20116 NA 132* 135 133* K 3.5 3.6 3.7 CL 95* 98 97* CO2 30 29 29 BUN 46* 50* 49* CREATININE 1.67* 1.72* 1.56* CALCIUM 8.1* 8.0* 7.9* PROT 5.9* 6.0* 5.9* LABALBU 3.2* 3.2* 3.0* BILITOT 12.3* 10.6* 8.2* ALKPHOS 90 88 133* AST 40 61* 64* ALT 21 42 59* Last 3 CBC: Recent Labs 03/31/20 0006 04/01/205004/02/20116 WBC 8.5 11.4* 13.1* RBC 3.07* 3.05* 2.95* HGB 9.4* 9.3* 8.9* HCT 27.4* 27.6* 26.7* MCV 89.1 90.4 90.7 MCH 30.7 30.4 30.3 MCHC 34.4 33.6 33.4 RDW 15.4* 15.6* 15.6* PLT 92* 124* 153 MPV 9.5 9.2 9.7 ASSESSMENT Patient Active Problem List Diagnosis Date Noted Postoperative depression 04/01/2020 Other constipation 04/01/2020 Hyperbilirubinemia Postoperative anemia due to acute blood loss 03/28/2020 Consumptive coagulopathy (HCC) 03/28/2020 Paroxysmal atrial fibrillation (HCC) 03/28/2020 S/P CABG (coronary artery bypass graft) Stress hyperglycemia CAD in [place] artery 03/22/2020 Hypertension Hyperlipidemia Chronic kidney disease GERD (gastroesophageal reflux disease) Coronary artery disease involving [place] coronary artery of [place] heart with angina pectoris (HCC) ASSESSMENT/PLAN: ASHLEIGH likely prerenal CKD 3 baseline Scr 1.4 per outpatient records s/p CABGx3 ROTHMAN-LAD, SVG to RCA, SVG to Diag; Creatinine 1.56 Avoid nephrotoxins hypotension S/p lasix 40 mg IV x1 bp ok currently Cruz Salvador MD 04/02/2020 1:27 PM * Flora Quintanilla SLP - 04/02/2020 11:13 AM EDT Facility/Department: [facility] Dysphagia Treatment Note NAME: Karen Kearns : 1940 Patient Diagnosis(es): Patient Active Problem List Diagnosis Hypertension Hyperlipidemia Chronic kidney disease GERD (gastroesophageal reflux disease) Coronary artery disease involving [place] coronary artery of [place] heart with angina pectoris (HCC) CAD in [place] artery S/P CABG (coronary artery bypass graft) Stress hyperglycemia Postoperative anemia due to acute blood loss Consumptive coagulopathy (HCC) Paroxysmal atrial fibrillation (HCC) Hyperbilirubinemia Postoperative depression Other constipation Allergies: No Known Allergies Onset Date: 03/21/2020 Oxygen Level: .5 liters (down from 6 liters) Current Diet Level: Regular diet Compensatory Techniques []Chin tuck []Small bolus [x]Alternate bites/ sips []No straws []Liquids by teaspoon only []Swallow x 2 with each bolus []Alternate lemon ice between each bolus [x]Position patient upright []Other Pain: with cough - RN managing S: Up in chair; Alert and cooperative; Complaining of coughing O: Assess tolerance of current diet (Regular / Thin liquids) A: Patient reports very limited appetite but denies nausea. Patient willing to take a bite of a Saltine cracker and drink water from a large bore straw. There is mild oral residue after the dry cracker bolus that reduces with a liquid wash. Laryngeal excursion is clinically strong. Patient denies any symptomology that could suggest oropharyngeal residue or esophageal dysmotility. Patient did havea productive cough several minutes after this session. Noted slight saltine cracker residue in sputum. Suspect same is from the oral cavity and not the oropharynx. [] Goal met [] Progressing as expected [x] Progressing slower than expected - limited appetite [] Medical status inhibits participation [] Goals not addressed this session [] Goals revised this session [] Unable to show any progress towards functional goals [] Progress towards functional goal is gradual / fair P: Recommend patient continue on a regular diet as tolerated. Will continue the dysphagia plan of care to ensure patient tolerance of the diet once the appetite improves. Time Out: 1105 Session Time: 10 minutes A KN95 mask, a full face shield and gloves were worn throughout this session. * Odalis Bradford DTR - 04/02/2020 10:56 AM EDT Calorie Count Date 04/01/20 04/02/20 04/03/20 Calories Protein Calories Protein Calories Protein Breakfast 132 3 72 3 121 4 Lunch 234 19 13 0 0 0 Dinner 0 0 365 36 238 9 Nourishment Supplement 87 3 110 9 145 4 Total 453 25 560 48 504 17 .YVETTE Mckay * Virginia Aguero MD - 04/02/2020 10:50 AM EDT Critical Care Progress Note 04/02/2020 10:50 AM Subjective: Admit Date: 03/21/2020 PCP: KEVYN SIM MD CABG Interval History: - CABGx3 + takeback for bleeding 03/26 - confusion cleared - hiccups appear to have subsided -Remains on 0.5L NC - Afib from 3 AM to 6 AM. Received Lopressor overnight. - reports of SI per nursing (CLP consulted per CTS). Added melatonin overnight. - BM liquid this morning. Poor appetite - Out of bed with assistance, able to walk. Diet: DIET CARDIAC; Carb Control: 5 carb choices (75 gms)/meal Dietary Nutrition Supplements: Frozen Oral Supplement Medications: Scheduled Meds: metoclopramide 10 mg Oral BID amiodarone 400 mg Oral BID heparin (porcine) 5,000 Units Subcutaneous Q12H aspirin 81 mg Oral Daily metoprolol tartrate 12.5 mg Oral BID pantoprazole 40 mg Oral QAM AC sodium chloride flush 10 mL Intravenous 2 times per day polyethylene glycol 17 g Oral Daily sennosides-docusate sodium 2 tablet Oral Nightly Continuous Infusions: dextrose Objective: Vitals: Temp (24hrs), Av F (37.2 C), Min:98.8 F (37.1 C), Max:99.2 F (37.3 C) BP (!) 116/52 Pulse 72 Temp 98.8 F (37.1 C) (Oral) Resp 29 Ht 5' 10 (1.778 m) Wt 190 lb (86.2 kg) SpO2 94% BMI 27.26 kg/m I/O: 04/01 0701 - 04/02 0700 In: 820 [P.O.:820] Out: 550 [Urine:550] CVP: CVP (Mean): 11 mmHg Invasive Lines: - PIVs PHYSICAL EXAM: General Appearance: [x]WDWN []Obese []Cachectic []Thin [x]ill Skin: Temperature [x]Warm []Cool / Rash []Yes [x]No / Tattoo(s) []Yes [x]No - jaundiced: improving -sternotomy c/d/i Heent: Pupils round and react [x]Yes []No Sclera [x]Icteric []Non-Icteric Conjunctiva []Injected [x]Non-Injected / Pinnae [x]Normal []Other/ Dentitian [][place] Teeth []Dentures Oral Mucosa [][place] [x]Moist []Dry/ Oral ETT []Present [x]Absent Neck: Trachea midline [x]Yes []No/ Thyromegaly []Yes []No/ Crepitus []Present [x]Absent /Jvd []Present []Absent Lungs: [x]Clear []Crackles []Wheezes []Rhonchi / Respiratory effort []Labored [x]Non-Labored - improving effort c/b coughing episodes, diminished breath sounds at BL bases Heart: [x]RRR []Irregularly Irregular []murmur present []murmur absent/ Peripheral Edema [x]Absent [x]Present Abdomen: [x]Soft Bowel Sounds [x]Present []Absent []Diminished []Hyperactive []Hypoactive []Tender [x]Non-Tender []Distended [x]Non-distended / Hernia []Present []Absent / Organomegaly [x]Absent []Present/ []Scar Extremities: Cyanosis []Present [x]Absent/ CARDOZA ([x]RUE [x]RLE [x]LUE [x]LLE) Neurologic: EGEGIK [x]Yes []No Corneal reflexes []Present []Absent / Plantar reflexes []Up []Down []Absent / Withdraws to tactile [x]Yes []No/ Follows Commands [x]Yes []No []Unresponsive to verbal Psych: Alert [x]yes []no: Oriented []x0 []x1 []x2 []x3 / Affect []Normal [x]Flat []Aggitated [x]Calm []Sedated []NAD - flat affect Labs: BMP: Recent Labs 03/31/20 0006 04/01/20 0051 04/02/20 0117 NA 132* 135 133* K 3.5 3.6 3.7 CL 95* 98 97* CO2 30 29 29 BUN 46* 50* 49* CREATININE 1.67* 1.72* 1.56* GLUCOSE 155* 93 116* . Ionized Calcium: Lab Results Component Value Date IONCA 4.20 03/29/2020 IONCA 4.50 03/28/2020 Hepatic: Recent Labs 04/01/205004/02/20 011 AST 61* 64* ALT 42 59* BILITOT 10.6* 8.2* ALKPHOS 88 133* Troponin: No results for input(s): TROPONINI in the last 72 hours. Lactate: Lab Results Component Value Date LACTA 0.9 03/29/2020 LACTA 1.0 03/28/2020 LACTA 0.9 03/28/2020 ABG: No results for input(s): PH, PCO2, PO2 in the last 72 hours. CBC: Recent Labs 04/01/205004/02/20 011 WBC 11.4* 13.1* HGB 9.3* 8.9* PLT 124* 153 CK: No results for input(s): CKTOTAL in the last 72 hours. BNP: No results for input(s): BNP in the last 72 hours. INR: No results for input(s): INR in the last 72 hours. CORTISOL: No results for input(s): CORTISOL in the last 72 hours. TSH: No results for input(s): TSH in the last 72 hours. PROCALCITONIN: No results for input(s): PROCAL in the last 72 hours. LIPIDS: No results for input(s): CHOL, HDL in the last 72 hours. Invalid input(s): LDLCALCU UA: No results for input(s): NITRITE, COLORU, PHUR, LABCAST, WBCUA, RBCUA, MUCUS, TRICHOMONAS, YEAST, BACTERIA, CLARITYU, SPECGRAV, LEUKOCYTESUR, UROBILINOGEN, BILIRUBINUR, BLOODU, GLUCOSEU, AMORPHOUS inthe last 72 hours. Invalid input(s): KETONESU Cultures: No results for input(s): LABURIN in the last 72 hours. No results for input(s): BC in the last 72 hours. No results for input(s): BLOODCULT2 in the last 72 hours. No results for input(s): CULTRESP in the last 72 hours. No results for input(s): CXCATHTIP in the last 72 hours. No results for input(s): LEGUR in the last 72 hours. Invalid input(s): STREPPNEUMAGU No results for input(s): LABGRAM in the last 72 hours. Films: CXR portable: Results for orders placed during the hospital encounter of 03/21/20 XR CHEST PORTABLE Narrative Patient Name: KAREN KEARNS ---Diagnostic Radiology--- Exam Date/Time 03/26/2020 21:10:12 EDT Exam CR Chest Portable Ordering Physician [id number] العلي Accession Number [id number] CPT4 Codes 60927 () Reason For Exam post operative Report SINGLE FRONTAL VIEW OF THE CHEST CLINICAL INDICATION: post operative TECHNIQUE: Single frontal view of the chest COMPARISON: 03/26/2020 FINDINGS: Endotracheal tube tip 6.1 cm above the bert. Blair-Dhaval catheter tip is in the proximal right pulmonary artery. NG tube tip is not included on the study but is at least as far distal as the gastric fundus. No pneumothorax seen. There appear to be mediastinal drains there is extensive overlapping tubing in wiring. Left chest tube terminates apically. No definite pneumothorax seen. Mild right basilar atelectasis or infiltrate. Left lung is small compared to the right, similar to yesterday's study. IMPRESSION: 1. Tubes and lines as described. Right basilar atelectasis or infiltrate. 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 - mgmt per CTS primary team - Diuresis with Lasix Acute post-operative pulmonary management/ respiratory insufficiency - routine post-op pulm hygeine -- increase OOB/PT now chest tubes out - IS hourly - pain control - wean NC O2 as able Poor appetite/Hiccups - Hiccups resolved - consider baclofen (given one 04/01), thorazine or haldol for hiccups if refractory to tx for nausea (+/- ileus), avoid if somnolent - KUB on 04/01 without acute issues - Having liquid stools - monitor for hypoglycemia: add gentle D5 IVF vs NGT w/TF if hypoglycemia occurs with decreased PO intake -Speech consulted AFib w/RVR - remains in NSR this AM off amio >24h - on bblocker, received extra dose of Lopressor for afib overnight - trend electrolytes, replace as needed hemorrhagic shock: resolved acute blood loss anemia consumptive coagulopathy - laurie smear resulted c/w acute blood loss, some schistocytes also seen - thrombocytopenia steadily improving, hgb stable w/o transfusions>48h Hyperbilirubinemia - bili continues to trend down and jaundice slowly improving - GI eval'd: agree likely acute and likely 2/2 hemolysis with initial hemorrhagic shock/multiple blood product transfusion (c/w perismear results as well as above). Signed off - if bili doesn't continue to trend down in acute post-op setting, can consider further w/u for underlying liver disease such as Gilbert's ASHLEIGH on CKD - Nephro consult. ASHLEIGH likely prerenal. Improving Cr/BUN. Can use PRN diuretics -Renal US - repeat urine studies today (previous FEUrea c/w intrinsic renal disease) - continue to avoid nephrotoxins and monitor UOP as able (newman out, does not tolerate external cath) Acute metabolic encephalopathy / delirium / post-op depression - limit sedating medications as much as possible - nonpharm delirium interventions: redirect, reinforce day/night cycles - CLP consulted per CTS due to reported suicidal ideation per nursing, patient denied medical management. CLP recommended melatonin to help with sleep HTN HPL - metoprolol PO - hold statins pending improvement in LFTs/bili Prophylaxis: Stress ulcer: [x] PPI Agent [] H2RA [] Sucralfate [] Other: VTE: [] Enoxaparin [x] SC Heparin [x] SCD Full Code Excluding procedures, the total critical care time caring for this patient with life threatening, unstable organ failure, including direct patient contact, review of medical record, management of life support systems, review of data including imaging and labs, discussions with other team members, patient's family and physicians at least 40 minutes so far today. * Kael Kearns, STAPLE CUTTER - SEAT COVER CUTTER - 04/02/2020 6:05 AM EDT Cardiothoracic Surgery Progress Note 04/02/2020 Subjective: Admit Date: 03/21/2020 Interval History: S/P Cabgx3 on 03/26/20 w/return to OR for bleeding-POD#7-current NSR but per nsg had several runs atrial fib last night, On RA, on calorie count Subjective: Up in chair. States still has hiccups and cough Objective: Vitals: Temp (24hrs), Av.1 F (37.3 C), Min:98.9 F (37.2 C), Max:99.2 F (37.3 C) BP 116/72 Pulse 69 Temp 99.2 F (37.3 C) (Oral) Resp 18 Ht 5' 10 (1.778 m) Wt 190 lb (86.2 kg) SpO2 95% BMI 27.26 kg/m I/O: Date 04/02/20 0000 - 04/02/209 Shift 0014-7611 4471-6919 2382-4944 24 Hour Total INTAKE P.O. 100 100 Shift Total(mL/kg) 100(1.2) 100(1.2) OUTPUT Urine(mL/kg/hr) 250 250 Shift Total(mL/kg) 250(2.9) 250(2.9) Weight (kg) 86.2 86.2 86.2 86.2 Weights: Patient Vitals for the past 96 hrs (Last 3 readings): Weight 04/02/20 0110 190 lb (86.2 kg) 03/30/20 2159 196 lb 3.4 oz (89 kg) 03/30/20 0130 165 lb 12.8 oz (75.2 kg) Labs: BMP: Recent Labs 03/31/20 0006 04/01/20 0051 04/02/20 0117 NA 132* 135 133* K 3.5 3.6 3.7 CL 95* 98 97* CO2 30 29 29 BUN 46* 50* 49* CREATININE 1.67* 1.72* 1.56* GLUCOSE 155* 93 116* . CBC: Recent Labs 03/31/20 0006 04/01/20 0051 04/02/20 0117 WBC 8.5 11.4* 13.1* RBC 3.07* 3.05* 2.95* HGB 9.4* 9.3* 8.9* HCT 27.4* 27.6* 26.7* MCV 89.1 90.4 90.7 MCH 30.7 30.4 30.3 MCHC 34.4 33.6 33.4 RDW 15.4* 15.6* 15.6* PLT 92* 124* 153 MPV 9.5 9.2 9.7 Hepatic: Recent Labs 04/01/20 0051 04/02/20 0117 AST 61* 64* ALT 42 59* BILITOT 10.6* 8.2* ALKPHOS 88 133* INR: Lab Results Component Value Date PROTIME 13.0 03/29/2020 INR 1.2 03/29/2020 Films: CXR portable: Reviewed Physical Exam: Physical Exam Constitutional: General: He is not in acute distress. Appearance: Normal appearance. He is well-developed. He is not diaphoretic. HENT: Head: Normocephalic and atraumatic. Nose: Nose normal. Mouth/Throat: Mouth: Mucous membranes are moist. Eyes: Pupils: Pupils are equal, round, and reactive to light. Neck: Musculoskeletal: Normal range of motion and neck supple. Vascular: No JVD. Cardiovascular: Rate and Rhythm: Normal rate and regular rhythm. Pulses: Dorsalis pedis pulses are 2+ on the right side and 2+ on the left side. Heart sounds: Normal heart sounds, S1 normal and S2 normal. No murmur. No friction rub. No gallop. Pulmonary: Effort: Pulmonary effort is normal. No respiratory distress. Breath sounds: Normal breath sounds. No stridor. Abdominal: General: Bowel sounds are normal. There is distension. Palpations: Abdomen is soft. Tenderness: There is no abdominal tenderness. Musculoskeletal: Normal range of motion. General: No tenderness. Swelling: right hand. Skin: General: Skin is warm and dry. Coloration: Skin is jaundiced. Comments: Sternotomy incision intact with no signs of infection. Neurological: Mental Status: He is alert and oriented to person, place, and time. Psychiatric: Behavior: Behavior normal. Thought Content: Thought content normal. Judgment: Judgment normal. Comments: Dysphoric mood Medications: Scheduled Meds: metoclopramide 10 mg Oral BID amiodarone 400 mg Oral BID heparin (porcine) 5,000 Units Subcutaneous Q12H aspirin 81 mg Oral Daily metoprolol tartrate 12.5 mg Oral BID pantoprazole 40 mg Oral QAM AC sodium chloride flush 10 mL Intravenous 2 times per day polyethylene glycol 17 g Oral Daily sennosides-docusate sodium 2 tablet Oral Nightly Continuous Infusions: dextrose Home Meds: Prior to Admission medications Medication Sig Start Date End Date Taking? Authorizing Provider pantoprazole (PROTONIX) 40 MG tablet Take 40 mg by mouth daily Yes Historical Provider, aspirin 81 MG EC tablet Take 81 mg by mouth daily Yes Historical Provider, ramipril (ALTACE) 10 MG capsule Take 10 mg by mouth daily Yes Historical Provider, clopidogrel (PLAVIX) 75 MG tablet Take 75 mg by mouth daily Yes Historical Provider, Diet: DIET CARDIAC; Carb Control: 5 carb choices (75 gms)/meal Dietary Nutrition Supplements: Frozen Oral Supplement Problem List: Principal Problem: Coronary artery disease involving [place] coronary artery of [place] heart with angina pectoris (HCC) Active Problems: Hypertension Hyperlipidemia Chronic kidney disease GERD (gastroesophageal reflux disease) CAD in [place] artery S/P CABG (coronary artery bypass graft) Stress hyperglycemia Postoperative anemia due to acute blood loss Consumptive coagulopathy (HCC) Paroxysmal atrial fibrillation (HCC) Hyperbilirubinemia Postoperative depression Other constipation Resolved Problems: * No resolved hospital problems. * Assessment and Plan: 1. MVCAD: Status post CABGx3 ROTHMAN-LAD, SVG to RCA, SVG to Diag; left leg EVH; s/p take back to OR for bleeding on 03/26/20 -EF 83% on limited echo 03/27/20 -Core Medication: [x]ASA [x]BB [x] Statin [] ACEi/ARB EF>40% -Anticoagulation: n/a 2. Post op Pulm. Mgmt/Resp Failure: now on RA or 1 L NC 93%. CXR: Reviewed by Dr. Vallecillo during rounds today. Lasix 40 mg IVP x1 today.Continue C&DB, Enc use of IS. 3. Post op A fib: Current NSR 70's. On po amiodarone 400 mg BID. Metoprolol tartrate 12.5 mg BID. Several runs atrial fib last night. Now NSR 4. Hyperbilirubinemia: Bilirubin 8.2 Trending down from 9.3 Pt jaundice. Continue LFT's, GI signed off. 5. ASHLEIGH on CKD: Creatinine 1.56 I& O inaccurate since newman out. Continue monitor BMP 6. 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 Blood loss Anemia: Hgb: 8.9 Stable. No s/s bleeding. Continue to monitor CBC 8. Consumptive Thrombocytopenia: Platelets: 153 today. Resolved.No s/s bleeding. Continue to monitor labs 9. Dysphagia: Speech followed. Taking diet /thin liquids- but poor intake. Calorie count in place 10. Acute post op pain: On scheduled percocet prn 11. GI/DVT prophylaxis: PPI/SCD/Teds sq heparin 12. Deconditioned: PT/OT working with pt. Recommending facility based rehab 13. Disposition: Continue progressive care in [facility]- Blood Conservation Initiative Log: - 03/26 multiple blood products intraop/post op due to bleeding. * Kadi Maradiaga RN - 04/01/2020 10:29 PM EDT Patient reported feeling less depressed and was eager to get out of bed and walk around the unit. Patient was able to walk the furthest he has since surgery. Patient also wanted to, and successfully stood up on own from chair independently for the first time. * Bijal Chou MD - 04/01/2020 9:18 AM EDT Critical Care Progress Note 04/01/2020 9:18 AM Subjective: Admit Date: 03/21/2020 PCP: KEVYN SIM MD No chief complaint on file. Interval History: - CABGx3 + takeback for bleeding 03/26 - still with mild delirium/confusion but has not required pharmacologic intervention, redirectable,answers questions appropriately, seems to be slowly improving - hiccups now persistent, still w/nausea and lack of appetite/decreased PO intake, but has not had any c/o abdominal pain, no vomiting - NSR this AM (amio gtt off yesterday AM) - reports of SI per nursing (CLP consulted per CTS) Review of Systems Diet: DIET CARDIAC; Carb Control: 5 carb choices (75 gms)/meal Dietary Nutrition Supplements: Frozen Oral Supplement Medications: Scheduled Meds: amiodarone 400 mg Oral BID heparin (porcine) 5,000 Units Subcutaneous Q12H aspirin 81 mg Oral Daily metoprolol tartrate 12.5 mg Oral BID pantoprazole 40 mg Oral QAM AC sodium chloride flush 10 mL Intravenous 2 times per day polyethylene glycol 17 g Oral Daily sennosides-docusate sodium 2 tablet Oral Nightly Continuous Infusions: dextrose Objective: Vitals: Temp (24hrs), Av.3 F (36.8 C), Min:97.8 F (36.6 C), Max:98.8 F (37.1 C) BP (!) 129/56 Pulse 65 Temp 98.8 F (37.1 C) (Oral) Resp 18 Ht 5' 10 (1.778 m) Wt 196 lb 3.4 oz (89 kg) SpO2 97% BMI 28.15 kg/m I/O: 03/31 0701 - 04/01 0700 In: 413 [P.O.:400; I.V.:13] Out: - CVP: CVP (Mean): 11 mmHg Invasive Lines: - RIJ introducer 03/26/20 - chest tube 03/26 PHYSICAL EXAM: General Appearance: [x]WDWN []Obese []Cachectic []Thin [x]ill Skin: Temperature [x]Warm []Cool / Rash []Yes [x]No / Tattoo(s) []Yes [x]No - jaundiced: improving Heent: Pupils round and react []Yes []No Sclera [x]Icteric []Non-Icteric Conjunctiva []Injected [x]Non-Injected / Pinnae [x]Normal []Other/ Dentitian [][place] Teeth []Dentures Oral Mucosa [][place] Belt [x]Moist []Dry/ Oral ETT []Present [x]Absent Neck: Trachea midline [x]Yes []No/ Thyromegaly []Yes []No/ Crepitus []Present [x]Absent /Jvd []Present []Absent Lungs: [x]Clear []Crackles []Wheezes [x]Rhonchi / Respiratory effort []Labored [x]Non-Labored - shallow inspiratory effort, diminished breath sounds at BL bases Heart: [x]RRR []Irregularly Irregular []murmur present []murmur absent/ Peripheral Edema []Absent [x]Present Abdomen: [x]Soft Bowel Sounds []Present []Absent []Diminished []Hyperactive []Hypoactive []Tender []Non-Tender []Distended [x]Non-distended / Hernia []Present []Absent / Organomegaly [x]Absent []Present/ []Scar - distention improved today, NT Extremities: Cyanosis []Present [x]Absent/ CARDOZA ([x]RUE [x]RLE [x]LUE [x]LLE) Neurologic: EGEGIK [x]Yes []No Corneal reflexes []Present []Absent / Plantar reflexes []Up []Down []Absent / Withdraws to tactile [x]Yes []No/ Follows Commands [x]Yes []No []Unresponsive to verbal Psych: Alert [x]yes []no: Oriented []x0 []x1 []x2 []x3 / Affect []Normal [x]Flat []Aggitated [x]Calm []Sedated []NAD - intermittently confused but redirectable, answers questions - flat affect Labs: BMP: Recent Labs 03/30/20 0503 03/31/20 0006 04/01/20 0051 NA 135 132* 135 K 4.1 3.5 3.6 CL 98 95* 98 CO2 29 30 29 BUN 46* 46* 50* CREATININE 1.61* 1.67* 1.72* GLUCOSE 120* 155* 93 . Ionized Calcium: Lab Results Component Value Date IONCA 4.20 03/29/2020 IONCA 4.50 03/28/2020 Hepatic: Recent Labs 03/31/206 04/01/2050 AST 40 61* ALT 21 42 BILITOT 12.3* 10.6* ALKPHOS 90 88 Troponin: No results for input(s): TROPONINI in the last 72 hours. Lactate: Lab Results Component Value Date LACTA 0.9 03/29/2020 LACTA 1.0 03/28/2020 LACTA 0.9 03/28/2020 ABG: No results for input(s): PH, PCO2, PO2 in the last 72 hours. CBC: Recent Labs 03/31/20504/01/2050 WBC 8.5 11.4* HGB 9.4* 9.3* PLT 92* 124* CK: No results for input(s): CKTOTAL in the last 72 hours. BNP: No results for input(s): BNP in the last 72 hours. INR: No results for input(s): INR in the last 72 hours. CORTISOL: No results for input(s): CORTISOL in the last 72 hours. TSH: No results for input(s): TSH in the last 72 hours. PROCALCITONIN: No results for input(s): PROCAL in the last 72 hours. LIPIDS: No results for input(s): CHOL, HDL in the last 72 hours. Invalid input(s): LDLCALCU UA: No results for input(s): NITRITE, COLORU, PHUR, LABCAST, WBCUA, RBCUA, MUCUS, TRICHOMONAS, YEAST, BACTERIA, CLARITYU, SPECGRAV, LEUKOCYTESUR, UROBILINOGEN, BILIRUBINUR, BLOODU, GLUCOSEU, AMORPHOUS inthe last 72 hours. Invalid input(s): KETONESU Cultures: No results for input(s): LABURIN in the last 72 hours. No results for input(s): BC in the last 72 hours. No results for input(s): BLOODCULT2 in the last 72 hours. No results for input(s): CULTRESP in the last 72 hours. No results for input(s): CXCATHTIP in the last 72 hours. No results for input(s): LEGUR in the last 72 hours. Invalid input(s): STREPPNEUMAGU No results for input(s): LABGRAM in the last 72 hours. Films: CXR portable: Results for orders placed during the hospital encounter of 03/21/20 XR CHEST PORTABLE Narrative Patient Name: KAREN KEARNS ---Diagnostic Radiology--- Exam Date/Time 03/26/2020 21:10:12 EDT Exam CR Chest Portable Ordering Physician [id number] CARSON Accession Number [id number] CPT4 Codes 47231 () Reason For Exam post operative Report SINGLE FRONTAL VIEW OF THE CHEST CLINICAL INDICATION: post operative TECHNIQUE: Single frontal view of the chest COMPARISON: 03/26/2020 FINDINGS: Endotracheal tube tip 6.1 cm above the bert. Blair-Dhaval catheter tip is in the proximal right pulmonary artery. NG tube tip is not included on the study but is at least as far distal as the gastric fundus. No pneumothorax seen. There appear to be mediastinal drains there is extensive overlapping tubing in wiring. Left chest tube terminates apically. No definite pneumothorax seen. Mild right basilar atelectasis or infiltrate. Left lung is small compared to the right, similar to yesterday's study. IMPRESSION: 1. Tubes and lines as described. Right basilar atelectasis or infiltrate. 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 - mgmt per CTS primary team - chest tubes out today per CTS Acute post-operative pulmonary management/ respiratory insufficiency - routine post-op pulm hygeine -- increase OOB/PT now chest tubes out - IS hourly - pain control - wean NC O2 as able Nausea / decreased POI / hiccups - f/u KUB - increase bowel regimen if KUB c/w ileus - monitor for hypoglycemia: add gentle D5 IVF vs NGT w/TF if hypoglycemia occurs with decreased PO intake - consider baclofen or haldol for hiccups if refractory to tx for nausea (+/- ileus), avoid if somnolent AFib w/RVR - remains in NSR this AM off amio >24h - on bblocker - trend electrolytes, replace as needed hemorrhagic shock: resolved acute blood loss anemia consumptive coagulopathy - laurie smear resulted c/w acute blood loss, some schistocytes also seen - thrombocytopenia steadily improving, hgb stable w/o transfusions>48h Hyperbilirubinemia - bili continues to trend down and jaundice slowly improving - GI eval'd: agree likely acute and likely 2/2 hemolysis with initial hemorrhagic shock/multiple blood product transfusion (c/w perismear results as well as above) - if bili doesn't continue to trend down in acute post-op setting, can consider further w/u for underlying liver disease such as Gilbert's ASHLEIGH on CKD - agree w/nephro consult today as SCr/BUN trending up, still w/o olilguria - repeat urine studies today (previous FEUrea c/w intrinsic renal disease) - continue to avoid nephrotoxins and monitor UOP as able (newman out, does not tolerate external cath) Acute metabolic encephalopathy / delirium / post-op depression - limit sedating medications as much as possible - nonpharm delirium interventions: redirect, reinforce day/night cycles - CLP consulted today per CTS due to reported suicidal ideation per nursing, consider starting empiric SSRI therapy HTN HPL - metoprolol PO - hold statins pending improvement in LFTs/bili Prophylaxis: Stress ulcer: [x] PPI Agent [] H2RA [] Sucralfate [] Other: VTE: [] Enoxaparin [x] SC Heparin [x] SCD Full Code * Estela Armendariz, NYLA - [facility]NER - 04/01/2020 6:21 AM EDT Cardiothoracic Surgery Progress Note PATIENT NAME: Karen Kearns : 1940 (79 y.o.) TODAY'S DATE: 04/01/2020 Interval History: 03/26: CABGx3 ROTHMAN-LAD, SVG to RCA, SVG to Diag; left leg EVH; s/p take back to OR for bleeding 04/01: POD #6: VSS RA-1LNC; no acute hemodynamic events; complaining of constant hiccups? Not notedduring exam; per patient comes and goes. Once they start hard for them to stop. Dysphoric mood (consult clp today). No calorie count done; poor nutrition. Patient stated he was going to try and eat more wans cream of wheat and orange juice this am. Of note: patient EGEGIK. Last recorded/verified vitals in [facility] Temp: 98.3 F (36.8 C) Pulse: 64 BP: (!) 115/49 Resp: 18 SpO2: 97 % Recent Labs 03/30/20 0503 03/30/20 1402 03/31/20 0006 04/01/20 0051 WBC -- 8.7 8.5 11.4* HGB -- 9.7* 9.4* 9.3* PLT -- 84* 92* 124* NA 135 -- 132* 135 K 4.1 -- 3.5 3.6 CREATININE 1.61* -- 1.67* 1.72* CXR Lines RIJ-03/26 I&O inaccurate- undocumented voids/incontinence Home meds - Protonix, ASA (81), ramipril 10mg daily, plavix [x] Current Medications, pmHx, Allergies, and sHx reviewed and updated as appropriate Review of Systems Constitutional: Positive for activity change and fatigue. Negative for diaphoresis and fever. Respiratory: Negative for cough, shortness of breath and wheezing. Cardiovascular: Positive for chest pain (MSI + CT sites). Negative for palpitations and leg swelling. Gastrointestinal: Negative for abdominal distention, constipation and diarrhea. Skin: Positive for color change. Negative for pallor and rash. Psychiatric/Behavioral: Positive for dysphoric mood. Physical Exam Constitutional: Interventions: Nasal cannula in place. Eyes: General: Scleral icterus present. Cardiovascular: Rate and Rhythm: Normal rate and regular rhythm. Heart sounds: Normal heart sounds. No murmur. Pulmonary: Effort: Pulmonary effort is normal. Breath sounds: Decreased breath sounds present. Abdominal: General: Bowel sounds are normal. There is distension. Palpations: Abdomen is soft. Abdomen is not rigid. Tenderness: There is no abdominal tenderness. Skin: General: Skin is warm and dry. Capillary Refill: Capillary refill takes less than 2 seconds. Coloration: Skin is jaundiced. Neurological: Mental Status: He is alert. Psychiatric: Mood and Affect: Mood is depressed. Affect is flat. Behavior: Behavior normal. Behavior is cooperative. 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 Hold diuretics; D5LR for now; will discuss dobhoff on rounds. Hold lasix; repeat urine studies. Encourage PO intake-please assist in feeding patient. Mag citrate this am. Aggressive PT/OT and pulm hygiene. Remove IJ place PIV. Chlorpromazine for hiccups-will discuss? Increased diet supplement to TID. Cardiac Core Medications: ASA and BB statin held due to LFTs/bili Blood Conservation: 03/26: multiple blood products intraop/post op due to bleeding. DVT prophylaxis: TEDs, SCDs and Heprin SQ Diet: regular texture diet + thin liquids POAF Likely related to surgery no prior history; currently SR. On BB and PO amio no OAC at this time. Post Operative Pulmonary Management Acute Post-Operative Respiratory Insufficiency: improving CCM:consulted-managing Maintain SpO2 >92% and Increase Activity, Encourage Pulmonary Hygiene: Acapella, Incentive Spirometry, Cough and Deep Breathing ASHLEIGH on CKD stage III Baseline prior to admission: SCr ~1.4; GFR ~54; continue to slightly rise 1.72 today. Inaccurate I &Os; 16 undocumented voids. Repeat urine studies today. Acute blood loss anemia/consumptive coagulopathy Multiple transfusions intraop and post op; likely related to surgery and plavix. Hgb stable continue to monitor Hyperbilirubinemia 2/2 possible hemolysis vs med SE vs underlying Gilbert's GI consulted: appreciate recs. Bili downtrending 12.3-->10.6; continue to monitor trend. Post op constipation Last BM document 03/30; x1 dose mag citrate this am. At risk for skin breakdown/severe malnutrition Past diet; minimal PO intake. Calorie count in place. Last documented meal 03/31 25%; may need dobhoff for nutrition support. Will add D5LR and discuss on rounds. Last weight 196lbs on 03/30; will have nsg doc weight. Post op depression Per nursing ?suicide thoughts; consult clp today. Will discuss with CT surgeron Disclaimer ? INFORMED CONSENT:The nature and purpose of the proposed treatment or procedure have been discussed. The risks and benefits of the proposed treatment or procedures have been reviewed. Alternatives have been reviewed in addition to the risks and benefits of not receiving treatments or undergoing procedures. Pursuant to this discussion, the patient agrees to undergo the proposed treatment or procedure. ? Captured images seen in this note from are not a substitute for a comprehensive interpretation ofthe entire data set as reflected by the interpreting physician with regard to radiology, echocardiography, and other diagnostic images. ? This note may have been dictated using [employer] Medical Practice Edition 2.6 and/or [employer] Voice Recognition Feature. The document was proofread, however unrecognized voice recognition material handling technician errors may be present. * Анна Vera RCP - 03/31/2020 11:44 PM EDT [facility] Respiratory Care Department Progress Note Patient was seen in attempts to fulfill CPAP/BiPAP/AutoPAP order. Patient refused PAP therapy/studyat this time. Patient was educated on medical need and reasoning for physician order to ensure patient was making an informed medical decision. All of the patient's questions were answered at this time and patient was informed that if the patient changes their mind regarding wearing PAP to hit their call light or inform their nurse to contact Respiratory. A second, consecutive night of refusing PAP therapy/study results in order completion in the EMR. If future CPAP/BiPAP/AutoPAP therapy or study is indicated please place another order in the EMR and the assigned Respiratory Therapist will reattempt to fulfill orders. Comment or reasoning for refusal: second night refusal Thank you for involving Respiratory in the care of this patient, * Kadi Maradiaga RN - 03/31/2020 10:30 PM EDT 2029: Patient received call on Vocera from another RN that patient was yelling out I want to , multiple times. This RN came into room and asked patient why he was feeling that way and responded I'm just miserable. Upon conversation, patient is having severe chronic right shoulder pain and istachypneic and wincing. Morphine given for pain. Patient denies plans or thoughts of hurting himself. Will visually monitor patient more frequently. * Domingo Childs, PT - 03/31/2020 2:47 PM EDT Physical Therapy Facility/Department: [facility] Daily Treatment Note NAME: Karen Kearns : 1940 Date of Service: 03/31/2020 Discharge Recommendations: IP Rehab(see assessment) Assessment Body structures, Functions, Activity limitations: Decreased functional mobility ;Decreased cognition;Decreased endurance;Decreased strength;Decreased balance;Decreased safe awareness;Decreased ROM Assessment: Improved with both gait pattern (L knee TKE) and distance. Cantu concern is that pt is showing signs of depression (discussed with RN)--comments such as giving up . Pt able to perform P&C ex with guidance, but strongly encouraged spirometry and P&C ex on own. Pt also incontinent of urine (question motivation-no reason he should not be able to use urinal). From a mobility perspective, would continue to recommend rehab-level therapy, but would love to see increase in self-motivation to ensure greater likelihood of successful outcome (from mobility perspective) Prognosis: Fair PT Education: PT Role;Plan of Care;Goals;Precautions;Equipment Patient Education: sternal precaution (pt cannot state any sternal precautions); left handout of P&C ex REQUIRES PT FOLLOW UP: Yes Activity Tolerance Activity Tolerance: Treatment limited secondary to medical complications (free text);Patient limited by cognitive status;Patient limited by fatigue;Patient limited by pain Patient Diagnosis(es): There were no encounter diagnoses. has a past medical history of Harmon's palsy, Chronic kidney disease, Diverticulosis of colon, GERD (gastroesophageal reflux disease), Hyperlipidemia, Hypertension, and Internal hemorrhoids. has a past surgical history that includes Rotator cuff repair (Right) and hernia repair. Restrictions Restrictions/Precautions Restrictions/Precautions: Fall Risk, General Precautions, Surgical Protocols, Weight Bearing Required Braces or Orthoses?: No Upper Extremity Weight Bearing Restrictions Other: sternal precautions Position Activity Restriction Sternal Precautions: No Pushing, No Pulling, 10# Lifting Restrictions Sternal Precautions: yes Other position/activity restrictions: PAC and introducer on righ tIJ, left radial Art. line. Subjective General Chart Reviewed: Yes Family / Caregiver Present: No Subjective Subjective: Pt in chair, awake. complaining about having hiccups and driving him crazy. Pt initially in A-fib with variable R-R intervals. Approx 1/2 [address] through session, pt reverted back to sinus rhythm (rate went from low 100s to high 60s/ low 70s). General Comment Comments: CAD, CABG x 3; pt 2L O2 (all chest tubes d/c); pt with some jaundice, but approx from zygoma and superiorly Pain Screening Patient Currently in Pain: Yes Vital Signs Patient Currently in Pain: Yes Orientation Orientation Overall Orientation Status: (pt admits he has not been performing spirometry too often; Pt orientedotherwise) Cognition Cognition Cognition Comment: continued flat affect. Made a couple of comments re: I wish I'd neve have done this and I feel like giving up. Objective Bed mobility Comment: NT-pt in chair Transfers Sit to Stand: Moderate Assistance Stand to sit: Minimal Assistance Comment: much gretaer force exhibited via hip extn Ambulation 1 Surface: level tile Device: (Hanna) Distance: 68' Comments: Gait much smoother, less force on UEs, L TKE to approx -10. PT feels pt could have ambulated farther, but he limited motivation (PT asked for third waqas, and pt amb to second) Stairs/Curb Stairs?: No Exercises Comments: performed P&C ex 1-9 only, 10 reps--often with redirection. Shldr flex to approx 140 with D2 flexion. Spirometry to 1100 cc. for one rep, but then averaged approx 800 cc for remainder. AM-PAC Score AM-[facility] Inpatient Mobility Raw Score : 8 (03/30/201625) AM-PAC Inpatient T-Scale Score : 28.52 (03/30/201625) Mobility Inpatient CMS 0-100% Score: 86.62 (03/30/201625) Mobility Inpatient CMS G-Code Modifier : CM (03/30/201625) Goals Short term goals Time Frame for Short term goals: 2 weeks Short term goal 1: bed mobility min. assist-not addressed Short term goal 2: transfers min. assist-slowly progressing Short term goal 3: ambulate 150 ft, with device, min. assist (updated 03/30)-progressing Short term goal 4: supervision with P&C ex, IS, secretion clearance and understanding of walking program.-slowly progressing Short term goal 5: Curb step, mod of 1-not appropriate yet Patient Goals Patient goals : eat better ice cream than at hospital Plan Plan Times per week: 5-6x/wk Plan weeks: 2 weeks Current Treatment Recommendations: Strengthening, Transfer Training, Balance Training, Gait Training, Functional Mobility Training, Home Exercise Program, Endurance Training Plan Comment: chest PT prn, post-op protocol Safety Devices Type of devices: Left in chair, Call light within reach Restraints Initially in place: No Therapy Time Individual Concurrent Group Co-treatment Time In 1400 Time Out 1427 Minutes 27 PT wore N95 mask, goggles, and gloves throughout entire session with patient. Zena Perez, SPT, present during session Domingo Childs PT * Lilly Sweet MD - 03/31/2020 2:04 PM EDT GASTROENTEROLOGY INPATIENT PROGRESS NOTE Patient: Karen Kearns Date of : 1940 Age: 79 y.o. Sex: male MD KEVYN Starkey MD Subjective: S: No new events overnight. Pt sitting up in chair. Past Medical History: Diagnosis Date Harmon's palsy Chronic kidney disease Diverticulosis of colon 10/19/2006 GERD (gastroesophageal reflux disease) Hyperlipidemia Hypertension Internal hemorrhoids 03/22/2020 Past Surgical History: Procedure Laterality Date HERNIA REPAIR ROTATOR CUFF REPAIR Right Social History Occupational History Not on file Tobacco Use Smoking status: Never Smoker Smokeless tobacco: Never Used Substance and Sexual Activity Alcohol use: Yes Comment: occasional Drug use: Never Sexual activity: Not Currently Comment: pt unwilling to answer Family History Problem Relation Age of Onset Cancer Mother Current Facility-Administered Medications: reviewed Allergies: No Known Allergies Review of Systems: Constitutional: see HPI History obtained from the patient HENT ROS: denies CAMPOS, denies ear pain, denies sore throat Eyes: denies blurry vision Respiratory ROS: denies SOB Cardiovascular ROS: denies chest pain Gastrointestinal ROS: see HPI Genito-Urinary ROS: denies dysuria Musculoskeletal ROS: denies joint pain Neurological ROS: denies seizures, weakness Dermatological ROS: denies rash Objective: Physical Exam: BP (!) 129/56 Pulse 103 Temp 97.8 F (36.6 C) (Oral) Resp 20 Ht 5' 10 (1.778 m) Wt 196 lb3.4 oz (89 kg) SpO2 99% BMI 28.15 kg/m Gen: comfortable, NAD, ill, Jaundiced HEENT: +icteric sclera Chest: normal respiratory effort Abd: benign, nontender Ext: no c/c/e Neuro: nonfocal Labs/Studies reviewed in [facility] at current clinic visit March 31, 2020 Lab Results Component Value Date WBC 8.5 03/31/2020 HGB 9.4 (L) 03/31/2020 HCT 27.4 (L) 03/31/2020 MCV 89.1 03/31/2020 PLT 92 (L) 03/31/2020 Lab Results Component Value Date ALT 21 03/31/2020 AST 40 03/31/2020 ALKPHOS 90 03/31/2020 BILITOT 12.3 (H) 03/31/2020 ASSESSMENT/PLAN: Status post CABG Hyperbilirubinemia - pattern is equally mixed conjugated/unconjugated. Pt had normal bilirubin 03/26/20 suggests more acute process and not chronic liver disease. Pt with normal alk phos, normal AST/ALT. Suspect etiology is from Hemolysis vs. Medication side effect, vs underlying Gilbert's worsenedby recent stress/surgery etc. Reviewed US doppler report - Acalculous cholecystitis also in diff dxbut less likely as pt with normal WBC, nontender abdomen. --Suspect elevated bilirubin is due to hemolysis (pt also with anemia and schistocytes on peripheral smear). Trend is now decreasing --Minimize hepatotoxic meds --Continue supportive care, avoid hypotension --Serial abd exam (pt nontender at this time) --GI inpatient service will sign off at this time, please call if new issues/questions arise. Signed By: LILLY SWEET MD 03/31/2020 2:05 PM * Bijal Chou MD - 03/31/2020 7:47 AM EDT Critical Care Progress Note 03/31/2020 7:48 AM Subjective: Admit Date: 03/21/2020 PCP: KEVYN SIM MD No chief complaint on file. Interval History: - CABGx3 + takeback for bleeding 03/26 - amio gtt stopped this AM per CTS: NSR on tele rates 60s-80s - mild delirium sx: pulling off external catheter, etc - only complaint this AM is lack of appetite + nausea Review of Systems Diet: DIET CARDIAC; Carb Control: 5 carb choices (75 gms)/meal Dietary Nutrition Supplements: Frozen Oral Supplement Medications: Scheduled Meds: heparin (porcine) 5,000 Units Subcutaneous Q12H aspirin 81 mg Oral Daily metoprolol tartrate 12.5 mg Oral BID pantoprazole 40 mg Oral QAM AC sodium chloride flush 10 mL Intravenous 2 times per day acetaminophen 1,000 mg Oral Q8H polyethylene glycol 17 g Oral Daily sennosides-docusate sodium 2 tablet Oral Nightly Continuous Infusions: amiodarone 450mg/250ml D5W infusion 0.5 mg/min (03/31/20 0716) dextrose Objective: Vitals: Temp (24hrs), Av.9 F (36.6 C), Min:97.5 F (36.4 C), Max:98.6 F (37 C) BP (!) 110/57 Pulse 86 Temp 98.6 F (37 C) (Oral) Resp 19 Ht 5' 10 (1.778 m) Wt 196 lb 3.4 oz (89 kg) SpO2 99% BMI 28.15 kg/m I/O: 03/30 0701 - 03/31 0700 In: 663 [P.O.:120; I.V.:543] Out: 1340 [Urine:1250] CVP: CVP (Mean): 11 mmHg Invasive Lines: - SGC 03/26/20 - chest tubes x4 03/26/20 - L radial art line 03/26/20 PHYSICAL EXAM: General Appearance: [x]WDWN []Obese []Cachectic []Thin [x]ill Skin: Temperature [x]Warm []Cool / Rash []Yes [x]No / Tattoo(s) []Yes [x]No - jaundiced Heent: Pupils round and react []Yes []No Sclera [x]Icteric []Non-Icteric Conjunctiva []Injected [x]Non-Injected / Pinnae [x]Normal []Other/ Dentitian [][place] Teeth []Dentures Oral Mucosa [][place] Belt [x]Moist []Dry/ Oral ETT []Present [x]Absent Neck: Trachea midline [x]Yes []No/ Thyromegaly []Yes []No/ Crepitus []Present [x]Absent /Jvd []Present []Absent Lungs: [x]Clear []Crackles []Wheezes [x]Rhonchi / Respiratory effort []Labored [x]Non-Labored - shallow inspiratory effort, diminished breath sounds at BL bases Heart: [x]RRR []Irregularly Irregular []murmur present []murmur absent/ Peripheral Edema []Absent [x]Present Abdomen: [x]Soft Bowel Sounds []Present []Absent []Diminished []Hyperactive []Hypoactive []Tender []Non-Tender [x]Distended [x]Non-distended / Hernia []Present []Absent / Organomegaly [x]Absent []Present/ []Scar Extremities: Cyanosis []Present [x]Absent/ CARDOZA ([x]RUE [x]RLE [x]LUE [x]LLE) Neurologic: EGEGIK []Yes []No Corneal reflexes []Present []Absent / Plantar reflexes []Up []Down []Absent / Withdraws to tactile [x]Yes []No/ Follows Commands [x]Yes []No []Unresponsive to verbal Psych: Alert [x]yes []no: Oriented []x0 []x1 []x2 []x3 / Affect []Normal []Flat []Aggitated [x]Calm []Sedated []NAD - intermittently confused but redirectable, answers questions Labs: BMP: Recent Labs 03/30/20 0002 03/30/20 0503 03/31/20 0006 NA 132* 135 132* K 3.5 4.1 3.5 CL 95* 98 95* CO2 29 29 30 BUN 46* 46* 46* CREATININE 1.58* 1.61* 1.67* GLUCOSE 157* 120* 155* . Ionized Calcium: Lab Results Component Value Date IONCA 4.20 03/29/2020 IONCA 4.50 03/28/2020 Hepatic: Recent Labs 03/30/20 0002 03/30/20 14003/31/20 0006 AST 43 -- 40 ALT 17 -- 21 BILITOT 12.9* 12.6* 12.3* ALKPHOS 56 -- 90 Troponin: No results for input(s): TROPONINI in the last 72 hours. Lactate: Lab Results Component Value Date LACTA 0.9 03/29/2020 LACTA 1.0 03/28/2020 LACTA 0.9 03/28/2020 ABG: Recent Labs 03/28/20 2131 03/29/20 0253 PH 7.41 7.48* CBC: Recent Labs 03/30/20 14003/31/20 0006 WBC 8.7 8.5 HGB 9.7* 9.4* PLT 84* 92* CK: Recent Labs 03/28/20 0830 CKTOTAL 306* BNP: No results for input(s): BNP in the last 72 hours. INR: Recent Labs 03/28/20 2131 03/29/20 0253 INR 1.2* 1.2* CORTISOL: No results for input(s): CORTISOL in the last 72 hours. TSH: No results for input(s): TSH in the last 72 hours. PROCALCITONIN: No results for input(s): PROCAL in the last 72 hours. LIPIDS: No results for input(s): CHOL, HDL in the last 72 hours. Invalid input(s): LDLCALCU UA: Recent Labs 03/28/20 1059 COLORU Dark-Yellow* WBCUA 6-10* RBCUA 0-2 BACTERIA Negative LEUKOCYTESUR 25* UROBILINOGEN Normal BILIRUBINUR 1* GLUCOSEU Normal AMORPHOUS Few* Cultures: No results for input(s): LABURIN in the last 72 hours. No results for input(s): BC in the last 72 hours. No results for input(s): BLOODCULT2 in the last 72 hours. No results for input(s): CULTRESP in the last 72 hours. No results for input(s): CXCATHTIP in the last 72 hours. No results for input(s): LEGUR in the last 72 hours. Invalid input(s): STREPPNEUMAGU No results for input(s): LABGRAM in the last 72 hours. Films: CXR portable: Results for orders placed during the hospital encounter of 03/21/20 XR CHEST PORTABLE Narrative Patient Name: KAREN KEARNS ---Diagnostic Radiology--- Exam Date/Time 03/26/2020 21:10:12 EDT Exam CR Chest Portable Ordering Physician ANGELY MELTON Accession Number [id number] CPT4 Codes 70902 () Reason For Exam post operative Report SINGLE FRONTAL VIEW OF THE CHEST CLINICAL INDICATION: post operative TECHNIQUE: Single frontal view of the chest COMPARISON: 03/26/2020 FINDINGS: Endotracheal tube tip 6.1 cm above the bert. Blair-Dhaval catheter tip is in the proximal right pulmonary artery. NG tube tip is not included on the study but is at least as far distal as the gastric fundus. No pneumothorax seen. There appear to be mediastinal drains there is extensive overlapping tubing in wiring. Left chest tube terminates apically. No definite pneumothorax seen. Mild right basilar atelectasis or infiltrate. Left lung is small compared to the right, similar to yesterday's study. IMPRESSION: 1. Tubes and lines as described. Right basilar atelectasis or infiltrate. Report Dictated on --- Final --- Dictated: 03/26/2020 11:30 pm Dictating Physician: MD DAPHNEY, RIGO Andrade Signed Date and Time: 03/26/2020 11:32 pm Signed by: MD DAPHNEY, RIGO Andrade Transcribed Date and Time: 03/26/2020 11:30 Assessment and Plan: Assessment/Plan: multivessel CAD s/p CABGx3 03/26/20 - mgmt per CTS primary team - chest tubes out today per CTS Acute post-operative pulmonary management/ respiratory insufficiency - routine post-op pulm hygeine -- increase OOB/PT now chest tubes out - IS hourly - pain control - consider increased bowel regimen (nausea, abd distended) to help with shallow inspiratory effort - wean NC O2 as able AFib w/RVR - remains in NSR this AM - on bblocker - amio gtt d/cd per CTS this AM - trend electrolytes, replace as needed hemorrhagic shock: resolved acute blood loss anemia consumptive coagulopathy - f/u laurie smear - thrombocytopenia slowly improving, hgb stable w/o transfusions>24h - chest tubes out today per CTS Hyperbilirubinemia - bili trending down today - GI eval'd: agree likely acute and likely 2/2 hemolysis with initial hemorrhagic shock/multiple blood product transfusion - f/u laurie smear - if bili doesn't continue to trend down in acute post-op setting, can consider further w/u for underlying liver disease such as Gilbert's ASHLEIGH on CKD - SCr stable, may be new CKD baseline (previous documented baseline SCr 1.4 per CTS) - FEurea was intrinsic: favor diuresis w/lasix for decreased UOP - continue to avoid nephrotoxins and monitor UOP Acute metabolic encephalopathy / delirium - limit sedating medications as much as possible - nonpharm delirium interventions: redirect, reinforce day/night cycles HTN HPL - metoprolol PO - hold statins pending improvement in LFTs/bili Prophylaxis: Stress ulcer: [x] PPI Agent [] H2RA [] Sucralfate [] Other: VTE: [] Enoxaparin [x] SC Heparin [x] SCD Full Code * Estela Armendariz, STAPLE CUTTER - BAG TURNER - 03/31/2020 5:45 AM EDT Cardiothoracic Surgery Progress Note PATIENT NAME: Karen Kearns : 1940 (79 y.o.) TODAY'S DATE: 03/31/2020 Interval History: 03/26: CABGx3 ROTHMAN-LAD, SVG to RCA, SVG to Diag; left leg EVH; s/p take back to OR for bleeding 03/31: POD #5: VSS RA-1LNC; pain controled with PRNs. Dysphoric mood. Voiding post newman removal-inaccurate I &Os due to incontinence. Gtts: Amiodarone Last recorded/verified vitals in [facility] Temp: 97.5 F (36.4 C) Pulse: 66 BP: 129/63 Resp: 19 SpO2: 96 % Recent Labs 03/28/20 1508 03/28/20 2131 03/29/20 0253 03/30/20 0002 03/30/20 0503 03/30/20 1402 03/31/20 0006 WBC 10.2 7.6 -- 9.1 7.1 -- 8.7 8.5 HGB 6.8* 7.9* < > 9.6* 9.7* -- 9.7* 9.4* PLT 67* 46* -- 54* 66* -- 84* 92* INR 1.3* 1.2* -- 1.2* -- -- -- -- NA 136 136 -- 137 132* 135 -- 132* K 4.5 4.7 -- 4.2 3.5 4.1 -- 3.5 CREATININE 1.22 1.30* -- 1.37* 1.58* 1.61* -- 1.67* < > = values in this interval not displayed. CXR Lines RIJ-03/26 I&O +5.8L fluid balance, UO-1.2L/24hrs + undocumented voids/incontinence CT output 90 () Home meds - Protonix, ASA (81), ramipril 10mg daily, plavix [x] Current Medications, pmHx, Allergies, and sHx reviewed and updated as appropriate Review of Systems Constitutional: Positive for activity change and fatigue. Negative for diaphoresis and fever. Respiratory: Negative for cough, shortness of breath and wheezing. Cardiovascular: Positive for chest pain (MSI + CT sites). Negative for palpitations and leg swelling. Gastrointestinal: Negative for abdominal distention, constipation and diarrhea. Skin: Positive for color change. Negative for pallor and rash. Psychiatric/Behavioral: Positive for dysphoric mood. Physical Exam Constitutional: Interventions: Nasal cannula in place. Eyes: General: Scleral icterus present. Cardiovascular: Rate and Rhythm: Normal rate and regular rhythm. Heart sounds: Normal heart sounds. No murmur. Pulmonary: Effort: Pulmonary effort is normal. Breath sounds: Decreased breath sounds present. Abdominal: General: Bowel sounds are normal. There is distension. Palpations: Abdomen is soft. Abdomen is not rigid. Tenderness: There is no abdominal tenderness. Skin: General: Skin is warm and dry. Capillary Refill: Capillary refill takes less than 2 seconds. Coloration: Skin is jaundiced. Neurological: Mental Status: He is alert. Psychiatric: Mood and Affect: Mood is depressed. Affect is flat. Behavior: Behavior normal. Behavior is cooperative. Assessment/Plan Patient Active Problem List Diagnosis Code Hypertension I10 Hyperlipidemia E78.5 Chronic kidney disease N18.9 GERD (gastroesophageal reflux disease) K21.9 Coronary artery disease involving [place] coronary artery of [place] heart with angina pectoris (HCC)I25.119 CAD in [place] artery I25.10 S/P CABG (coronary artery bypass graft) Z95.1 Stress hyperglycemia R73.9 Postoperative anemia due to acute blood loss D62 Consumptive coagulopathy (HCC) D65 Paroxysmal atrial fibrillation (HCC) I48.0 Hyperbilirubinemia E80.6 CAD/HTN/HLD s/p CABGx3 ROTHMAN-LAD, SVG to RCA, SVG to Diag; left leg EVH; s/p take back to OR for bleeding on 03/26 Continue care per orders: d/c amio; hold lasix, d/c chest tubes this am. Failure to thrive-->encourage PO intake/PT. Currently PT recommending facility based. Cardiac Core Medications: ASA and BB statin held due to LFTs/bili Blood Conservation: 03/26: multiple blood products intraop/post op due to bleeding. DVT prophylaxis: TEDs, SCDs and Heprin SQ Diet: regular texture diet + thin liquids POAF Likely related to surgery no prior history; currently SR. On BB; d/c amio today. Post Operative Pulmonary Management Acute Post-Operative Respiratory Insufficiency: improving CCM:consulted-managing Maintain SpO2 >92% and Increase Activity, Encourage Pulmonary Hygiene: Acapella, Incentive Spirometry, Cough and Deep Breathing ASHLEIGH on CKD stage III Baseline SCr ~1.4; GFR ~54; continue to 1.67 today. Lasix x1 yesterday. UO adequate/24hrs. Hold today. Appears dry on exam. May benefit from gentle fluid resuscitation. Will discuss on rounds + possible nephro consult. Acute blood loss anemia/consumptive coagulopathy Multiple transfusions intraop and post op; likely related to surgery and plavix. Hgb stable continue to monitor Hyperbilirubinemia 2/2 possible hemolysis vs med SE vs underlying Gilbert's GI consulted: appreciate recs. Bili slightly downtrending today. Will discuss with CT surgeron 03/31/20 6:35 AM Addendum: significant event: Patient afib rate controlled in low 100's. rebolused with amio + gtt resumed at 0.5mg Estela Armendariz APRN - JAYDEN Disclaimer ? INFORMED CONSENT:The nature and purpose of the proposed treatment or procedure have been discussed. The risks and benefits of the proposed treatment or procedures have been reviewed. Alternatives have been reviewed in addition to the risks and benefits of not receiving treatments or undergoing procedures. Pursuant to this discussion, the patient agrees to undergo the proposed treatment or procedure. ? Captured images seen in this note from are not a substitute for a comprehensive interpretation ofthe entire data set as reflected by the interpreting physician with regard to radiology, echocardiography, and other diagnostic images. ? This note may have been dictated using [employer] Practice Edition 2.6 and/or [employer]emnion Voice Recognition Feature. The document was proofread, however unrecognized voice recognition material handling technician errors may be present. * Faizan Yi RCP - 03/30/2020 11:21 PM EDT [facility] Respiratory Care Department Progress Note Patient was seen in attempts to fulfill CPAP/BiPAP/AutoPAP order. Patient refused PAP therapy/studyat this time. Patient was educated on medical need and reasoning for physician order to ensure patient was making an informed medical decision. All of the patient's questions were answered at this time and patient was informed that if the patient changes their mind regarding wearing PAP to hit their call light or inform their nurse to contact Respiratory. A second, consecutive night of refusing PAP therapy/study results in order completion in the EMR. If future CPAP/BiPAP/AutoPAP therapy or study is indicated please place another order in the EMR and the assigned Respiratory Therapist will reattempt to fulfill orders. Comment or reasoning for refusal: Pt sts he doesn't like the autopap and doesn't need it Thank you for involving Respiratory in the care of this patient, * Domingo Childs, PT - 03/30/2020 4:25 PM EDT Physical Therapy Facility/Department: [facility] Daily Treatment Note NAME: Karen Kearns : 1940 Date of Service: 03/30/2020 Discharge Recommendations: (facility-based (would like to recommend rehab if pt continues to improve in participation)) Assessment Body structures, Functions, Activity limitations: Decreased functional mobility ;Decreased cognition;Decreased endurance;Decreased strength;Decreased balance;Decreased safe awareness;Decreased ROM Assessment: While performance better than yesterday, pt still remains functionally behind typical performance of 2nd day of therapy. Pt with significant LE closed chain weakness that limits transfers (max) and lacks TKE in stance (note LAQ passively to 0). Anticipate facility-based (rehab) level of therapy at disch Prognosis: Fair PT Education: PT Role;Plan of Care;Goals;Precautions;Equipment Patient Education: sternal precaution (pt cannot state any sternal precautions) REQUIRES PT FOLLOW UP: Yes Activity Tolerance Activity Tolerance: Treatment limited secondary to medical complications (free text);Patient limited by cognitive status;Patient limited by fatigue;Patient limited by pain Patient Diagnosis(es): There were no encounter diagnoses. has a past medical history of Harmon's palsy, Chronic kidney disease, Diverticulosis of colon, GERD (gastroesophageal reflux disease), Hyperlipidemia, Hypertension, and Internal hemorrhoids. has a past surgical history that includes Rotator cuff repair (Right) and hernia repair. Restrictions Restrictions/Precautions Restrictions/Precautions: Fall Risk, General Precautions, Surgical Protocols, Weight Bearing Required Braces or Orthoses?: No Upper Extremity Weight Bearing Restrictions Other: sternal precautions Position Activity Restriction Sternal Precautions: No Pushing, No Pulling, 10# Lifting Restrictions Sternal Precautions: yes Other position/activity restrictions: PAC and introducer on righ tIJ, left radial Art. line. Subjective General Chart Reviewed: Yes Family / Caregiver Present: No Subjective Subjective: Pt in chair, awake, focused on nausea and states he really doesn't want to do anything.Per RN he ambulated in [place] and two doors down and back. General Comment Comments: CAD, CABG x 3; pt with chest tube x3, numerous IV, 2L O2, telemetry Pain Screening Patient Currently in Pain: Yes Pain Assessment Pain Assessment: 0-10 Pain Level: 5 Pain Type: Surgical pain Pain Location: Chest Vital Signs Patient Currently in Pain: Yes Orientation Orientation Overall Orientation Status: (was oriented, just somewhat lethargic.) Cognition Cognition Cognition Comment: flat affect, focused on requiring antinausea medication, very much repeats I can't statements Objective Bed mobility Comment: NT-pt in chair Transfers Sit to Stand: Maximum Assistance Stand to sit: Moderate Assistance Comment: first trial, pt with poor forward trunk flex. 2nd trial, PT with more emphatic trunk flex assist, but pt struggled extending knees, but overarched back. Ambulation Ambulation?: Yes Ambulation 1 Surface: level tile Device: (Oxatis) Assistance: Maximum assistance Distance: 32' Comments: Greater than desired force through hands, Lacks as much as 20 deg of R TKE (note only approx -10 on L) Stairs/Curb Stairs?: No Exercises Comments: performed P&C ex 1-6 only, 10 reps--often with redirection. Shldr flex to approx 130 with D2 flexion. Spirometry to 1000 cc. AM-PAC Score Raw score 8 Goals Short term goals Time Frame for Short term goals: 2 weeks Short term goal 1: bed mobility min. assist-not addressed Short term goal 2: transfers min. assist-slowly progressing Short term goal 3: ambulate 150 ft, with device, min. assist (updated 03/30) Short term goal 4: supervision with P&C ex, IS, secretion clearance and understanding of walking program. Short term goal 5: Curb step, mod of 1 Patient Goals Patient goals : eat better ice cream than at hospital Plan Plan Times per week: 5-6x/wk Plan weeks: 2 weeks Current Treatment Recommendations: Strengthening, Transfer Training, Balance Training, Gait Training, Functional Mobility Training, Home Exercise Program, Endurance Training Plan Comment: chest PT prn, post-op protocol Safety Devices Type of devices: Left in chair, Call light within reach Restraints Initially in place: No Therapy Time Individual Concurrent Group Co-treatment Time In 1540 Time Out 1611 Minutes 31 PT wore N95 mask, goggles, and gloves throughout entire session with patient. Zena Perez, SPT, present during session Domingo Childs PT * Misa Angeles RD, LD - 03/30/2020 12:39 PM EDT Comprehensive Nutrition Assessment Type and Reason for Visit: Reassess Nutrition Recommendations/Plan: 1. Continue Cardiac, CHO Control diet. If appetite is not improved to >50% at meals, may consider liberal (general diet). Monitor glucose/insulin needs for ability to d/c CHO limit (no documented hx of DM, HgA1C of 5.4 obtained on 03/25/20) 2. Per MNT protocol, will order Magic Cup BID to supplement intake (290kcal, 9g protein per cup) 3. Pt received heart healthy diet handout. Continue to monitor education needs 4. RD will monitor and follow up weekly Nutrition Assessment: POD #4 CABG x3 with takeback for bleeding. Extubated 03/30. AUTO APPRENTICE MECHANIC following -ptordered mildly thick liquids. Pt endorses poor appetite, states nothing tastes good, endosres slight nausea, states he ate ~1/4 of his breakfast this morning. Appetite was good prior to admission. He reports UBW of 188#, last weighed a couple weeks ago. Pt agrees to Magic Cup. AUTO APPRENTICE MECHANIC following with upgrade to thin liquids today. Pt received heart healthy diet handout with RD number. No questions at this time. Malnutrition Assessment: Malnutrition Status: Insufficient data Context: Acute Illness Findings of the 6 clinical characteristics of malnutrition: Energy Intake: Mild decrease in energy intake (Comment)(poor intake x4 days) Weight Loss: 1 - 5% over 1 month(? accuracy of current weight and fluid-related influence of weightchange) Estimated Daily Nutrient Needs: Energy (kcal): 5749-0597; Weight Used for Energy Requirements: [place] Protein (g): 91-106; Weight Used for Protein Requirements: [place](1.2-.14g/kg) Fluid (ml/day): Per MD; Weight Used for Fluid Requirements: (N/A) Nutrition Related Findings: +I/O. +3 BUE pitting edema. Abdomend distended. Hypoactive bowel sounds. Guillermo=16. Labs and meds reviewed. BMP: Recent Labs 03/27/201 03/28/20 0315 03/28/20 1508 03/28/20213003/29/203 03/30/20 0002 03/30/20 0503 NA 136 -- 137 < > 136 136 137 132* 135 K 4.1 -- 4.1 < > 4.5 4.7 4.2 3.5 4.1 CL 104 -- 109* < > 105 104 103 95* 98 CO2 26 -- 25 < > 25 23 25 29 29 BUN 36* -- 36* < > 35* 37* 39* 46* 46* CREATININE 1.30* -- 1.19 < > 1.22 1.30* 1.37* 1.58* 1.61* GLUCOSE 133* -- 63* < > 115* 124* 129* 157* 120* CALCIUM 7.5* -- 9.3 < > 8.3* 8.4 8.5 8.2* 8.2* IONCA -- < > 5.10 < > 4.60 4.50 4.20* -- -- MG -- -- 2.0 -- -- -- 1.8 -- -- PHOS 3.2 -- -- -- -- -- -- -- -- < > = values in this interval not displayed. HEPATIC: Recent Labs 03/28/20213003/29/2025203/30/20 0002 AST 39 43 43 ALT 14 15 17 BILITOT 8.0* 8.7* 12.9* ALKPHOS 34* 45 56 Wounds: Multiple, Surgical Wound Current Nutrition Therapies: DIET CARDIAC; Carb Control: 5 carb choices (75 gms)/meal Anthropometric Measures: Height: 5' 10 (177.8 cm) Current Body Weight: 165 lb 12.6 oz (75.2 kg) Admission Body Weight: 182 lb (82.6 kg)(182# via standing scale documented on 03/21. 188# per pt) Usual Body Weight: (no weight hx) [place] Body Weight: 166 lbs; % [place] Body Weight 99.9 % BMI: 23.8 Adjusted Body Weight: ; No Adjustment BMI Categories: Normal Weight (BMI 18.5-24.9) Nutrition Diagnosis: Inadequate oral intake related to impaired respiratory function, inadequate protein-energy intake as evidenced by NPO or clear liquid status due to medical condition, intubation Nutrition Interventions: Food and/or Nutrient Delivery: Continue Current Diet, Start Oral Nutrition Supplement Nutrition Education/Counseling: Education initiated Coordination of Nutrition Care: Continued Inpatient Monitoring Goals: Pt will consume >50% at meals and ONS Nutrition Monitoring and Evaluation: Behavioral-Environmental Outcomes: Beliefs and Attitutes Food/Nutrient Intake Outcomes: Diet Advancement/Tolerance, Food and Nutrient Intake, Supplement Intake Physical Signs/Symptoms Outcomes: Biochemical Data, GI Status, Nausea or Vomiting, Fluid Status or Edema, Nutrition Focused Physical Findings, Skin, Weight Discharge Planning: Too soon to determine Contact: pager [phone] * Bijal Chou MD - 03/30/2020 12:12 PM EDT Critical Care Progress Note 03/30/2020 12:12 PM Subjective: Admit Date: 03/21/2020 PCP: KEVYN SIM MD No chief complaint on file. Interval History: - CABGx3 + takeback for bleeding 03/26 - more awake today but still somnolent on my exam this morning - remains hemodynamically stable, off pressors>24 hrs - NSR on amio gtt - appears more jaundiced today - pain controlled - denies dyspnea at rest Review of Systems Diet: DIET CARDIAC; Carb Control: 5 carb choices (75 gms)/meal; Mildly Thick ([place]) Medications: Scheduled Meds: heparin (porcine) 5,000 Units Subcutaneous Q12H aspirin 81 mg Oral Daily metoprolol tartrate 12.5 mg Oral BID insulin lispro 0-6 Units Subcutaneous TID WC pantoprazole 40 mg Oral QAM AC amiodarone 150 mg Intravenous Once sodium chloride flush 10 mL Intravenous 2 times per day acetaminophen 1,000 mg Oral Q8H polyethylene glycol 17 g Oral Daily sennosides-docusate sodium 2 tablet Oral Nightly Continuous Infusions: amiodarone 0.5 mg/min (03/30/20 0851) phenylephrine (MIKA-SYNEPHRINE) 50mg/250mL infusion Stopped (03/28/20 1540) sodium chloride 20 mL/hr at 10/12/20 1300 dextrose niCARdipine Stopped (03/29/20 0350) Objective: Vitals: Temp (24hrs), Av.1 F (36.7 C), Min:97.5 F (36.4 C), Max:98.6 F (37 C) BP 114/64 Pulse 62 Temp 97.5 F (36.4 C) (Oral) Resp 17 Ht 5' 10 (1.778 m) Wt 165 lb 12.8oz (75.2 kg) SpO2 96% BMI 23.79 kg/m I/O: 03/29 07 - 03/30 07 In: 1893 [P.O.:640; I.V.:1253] Out: 4180 [Urine:4010] CVP: CVP (Mean): 11 mmHg Invasive Lines: - SGC 03/26/20 - chest tubes x4 03/26/20 - L radial art line 03/26/20 PHYSICAL EXAM: General Appearance: [x]WDWN []Obese []Cachectic []Thin [x]ill Skin: Temperature [x]Warm []Cool / Rash []Yes [x]No / Tattoo(s) []Yes [x]No - jaundiced Heent: Pupils round and react []Yes []No Sclera [x]Icteric []Non-Icteric Conjunctiva []Injected [x]Non-Injected / Pinnae [x]Normal []Other/ Dentitian [][place] Teeth []Dentures Oral Mucosa [][place] [x]Moist []Dry/ Oral ETT []Present [x]Absent Neck: Trachea midline [x]Yes []No/ Thyromegaly []Yes []No/ Crepitus []Present [x]Absent /Jvd []Present []Absent Lungs: [x]Clear []Crackles []Wheezes [x]Rhonchi / Respiratory effort []Labored [x]Non-Labored - shallow inspiratory effort, diminished breath sounds at BL bases Heart: [x]RRR []Irregularly Irregular []murmur present []murmur absent/ Peripheral Edema []Absent [x]Present Abdomen: [x]Soft Bowel Sounds []Present []Absent []Diminished []Hyperactive []Hypoactive []Tender []Non-Tender []Distended [x]Non-distended / Hernia []Present []Absent / Organomegaly [x]Absent []Present/ []Scar Extremities: Cyanosis []Present [x]Absent/ CARDOZA ([x]RUE [x]RLE [x]LUE [x]LLE) Neurologic: EGEGIK []Yes []No Corneal reflexes []Present []Absent / Plantar reflexes []Up []Down []Absent / Withdraws to tactile [x]Yes []No/ Follows Commands [x]Yes []No []Unresponsive to verbal Psych: Alert [x]yes []no: somnolent but slowly improving day to day Oriented []x0 []x1 []x2 []x3 / Affect []Normal []Flat []Aggitated [x]Calm []Sedated []NAD Labs: BMP: Recent Labs 03/29/2025203/30/20 0002 03/30/20 0503 NA 137 132* 135 K 4.2 3.5 4.1 CL 103 95* 98 CO2 25 29 29 BUN 39* 46* 46* CREATININE 1.37* 1.58* 1.61* GLUCOSE 129* 157* 120* . Ionized Calcium: Lab Results Component Value Date IONCA 4.20 03/29/2020 IONCA 4.50 03/28/2020 Hepatic: Recent Labs 03/29/2025203/30/20 0002 AST 43 43 ALT 15 17 BILITOT 8.7* 12.9* ALKPHOS 45 56 Troponin: No results for input(s): TROPONINI in the last 72 hours. Lactate: Lab Results Component Value Date LACTA 0.9 03/29/2020 LACTA 1.0 03/28/2020 LACTA 0.9 03/28/2020 ABG: Recent Labs 10/14/20 2131 10/15/20 0253 PH 7.41 7.48* CBC: Recent Labs 03/29/20 0253 03/30/20 0002 WBC 9.1 7.1 HGB 9.6* 9.7* PLT 54* 66* CK: Recent Labs 03/28/20 0830 CKTOTAL 306* BNP: No results for input(s): BNP in the last 72 hours. INR: Recent Labs 03/28/20 2131 03/29/20 0253 INR 1.2* 1.2* CORTISOL: Recent Labs 03/27/20 2101 CORTISOL 22.3 TSH: No results for input(s): TSH in the last 72 hours. PROCALCITONIN: No results for input(s): PROCAL in the last 72 hours. LIPIDS: No results for input(s): CHOL, HDL in the last 72 hours. Invalid input(s): LDLCALCU UA: Recent Labs 03/28/20 1059 COLORU Dark-Yellow* WBCUA 6-10* RBCUA 0-2 BACTERIA Negative LEUKOCYTESUR 25* UROBILINOGEN Normal BILIRUBINUR 1* GLUCOSEU Normal AMORPHOUS Few* Cultures: No results for input(s): LABURIN in the last 72 hours. No results for input(s): BC in the last 72 hours. No results for input(s): BLOODCULT2 in the last 72 hours. No results for input(s): CULTRESP in the last 72 hours. No results for input(s): CXCATHTIP in the last 72 hours. No results for input(s): LEGUR in the last 72 hours. Invalid input(s): STREPPNEUMAGU No results for input(s): LABGRAM in the last 72 hours. Films: CXR portable: Results for orders placed during the hospital encounter of 03/21/20 XR CHEST PORTABLE Narrative Patient Name: KAREN KEARNS ---Diagnostic Radiology--- Exam Date/Time 03/26/2020 21:10:12 EDT Exam CR Chest Portable Ordering Physician [id number] CARSON Accession Number [id number] CPT4 Codes 64220 () Reason For Exam post operative Report SINGLE FRONTAL VIEW OF THE CHEST CLINICAL INDICATION: post operative TECHNIQUE: Single frontal view of the chest COMPARISON: 03/26/2020 FINDINGS: Endotracheal tube tip 6.1 cm above the bert. Blair-Dhaval catheter tip is in the proximal right pulmonary artery. NG tube tip is not included on the study but is at least as far distal as the gastric fundus. No pneumothorax seen. There appear to be mediastinal drains there is extensive overlapping tubing in wiring. Left chest tube terminates apically. No definite pneumothorax seen. Mild right basilar atelectasis or infiltrate. Left lung is small compared to the right, similar to yesterday's study. IMPRESSION: 1. Tubes and lines as described. Right basilar atelectasis or infiltrate. Report Dictated on --- Final --- Dictated: 03/26/2020 11:30 pm Dictating Physician: MD DAPHNEY, RIGO Andrade Signed Date and Time: 03/26/2020 11:32 pm Signed by: MD SHELLEY JOHN R Transcribed Date and Time: 03/26/2020 11:30 Assessment and Plan: Assessment/Plan: multivessel CAD s/p CABGx3 03/26/20 - mgmt per CTS primary team - hemodynamically stable off pressors >24h - chest tubes to water seal anticipate will be pulled tmrw - favor resuming vasopressin vs phenylephrine if pressors again required (RVR w/levo and epi) AFib w/RVR - in NSR this AM - amio gtt likely transition to PO soon (defer to CTS) - agree with starting low dose metoprolol PO (off pressors >24h with stable BPs) - trend electrolytes, replace as needed hemorrhagic shock: resolved acute blood loss anemia consumptive coagulopathy - perismear pending (consider increased bilirubin 2/2 hemolysis after massive transfusion) - trending CBC, platelets and hgb stable - chest tubes: monitoring output - INR 1.2 last check - agree w/starting SQH ppx, monitor platelets closely over next few days Hyperbilirubinemia - consider may be partially 2/2 hemolysis (as above), but continuing to rise today - US w/doppler showed mildly distended GB w/ trace pericholecystic fluid w/wall thickening and sludge (normal CBD diameter). Also showed abdominal cysts of unclear etiology and intraperitoneal fluid -- consider CT A/P to further characterize - agree with GI consult per CTS primary team ASHLEIGH on CKD - FEUrea today c/w intrinsic renal disease -- consider nephrology consult if worsening BUN/SCr or oliguria -- given intrinsic FEUrea, suggest lasix for low UOP - avoid additional nephrotoxins / renally dose meds where appropriate Acute metabolic encephalopathy - slowly improving - limit sedating medications as much as possible Generalized weakness/debility - significant generalized weakness: PT/OT once more awake and tubes out HTN HPL - agree w/starting low dose metoprolol PO - hold statins pending improvement in LFTs/bili Prophylaxis: Stress ulcer: [x] PPI Agent [] H2RA [] Sucralfate [] Other: VTE: [] Enoxaparin [x] SC Heparin [x] SCD Full Code * Jeniffer Manzano, AUTO APPRENTICE MECHANIC - 03/30/2020 11:50 AM EDT Speech Language Pathology Facility/Department: [facility] Dysphagia Treatment Note NAME: Karen Kearns : 1940 Patient Diagnosis(es): Patient Active Problem List Diagnosis Hypertension Hyperlipidemia Chronic kidney disease GERD (gastroesophageal reflux disease) Coronary artery disease involving [place] coronary artery of [place] heart with angina pectoris (HCC) CAD in [place] artery S/P CABG (coronary artery bypass graft) Stress hyperglycemia Postoperative anemia due to acute blood loss Consumptive coagulopathy (HCC) Paroxysmal atrial fibrillation (HCC) Allergies: No Known Allergies Onset Date: 03/21/2020 Oxygen Level: O2 Device: Nasal cannula Liters of Oxygen: 6 L Current Diet Level: Regular, Mildly Thick liquids Pain denies S: Pt seen while up in chair O: Assess tolerance of diet, trial upgrades A: Pt able to consume 3 trials of continuous straw drinking 2 oz thin water with no overt clinical signs of dysphagia. Vocal quality remained clear and dry with no cough or throat clear. Continues totolerate regular solids well. Discussed with RN. [] Goal met [x] Progressing as expected [] Progressing slower than expected [] Medical status inhibits participation [] Goals not addressed this session [] Goals revised this session [] Unable to show any progress towards functional goals [] Progress towards functional goal is gradual / fair P: Recommend regular texture diet and THIN liquids. Will follow. An N95 mask, a full face shield and gloves were worn throughout this session. * Priscila Brown, STAPLE CUTTER - BAG TURNER - 03/30/2020 9:42 AM EDT Department of Internal Medicine Division of Endocrinology, Diabetes, & Metabolism Endocrinology Progress Note Patient Name: Karen Kearns : 1940 AGE: 79 y.o. Admission Date: 03/21/2020 8:07 PM Date of Initial Consult: 03/26/20 Reason for Endocrine Consult: post op management Provider/Team Requesting Consult: Dr Miller PCP: KEVYN SIM MD Outpt Supervisor Warping Department: no ASSESSMENT: Stress hyperglycemia POD#4 CABG x3 PLAN: Continue humalog low dose SSI if indicated. ANTICIPATED ENDOCRINE HOME GOING RECOMMENDATIONS: Optimized for Discharge from Endocrine standpoint: No Home Going Endocrine Rx Recommendations-- No medication is anticipated at this time, will continue to follow and make reccomendations Outpt Follow Up Endocrine Testing-- N/a Appointment request sent to Endo office Staff: No Endocrine Team Contact(s): Supervisor Warping Department On-Call: John Preferred Method of Communication/Reaching: VivienSeresme. The above physician should be paged w/ questions/concerns about items being managed by Endocrinology Team. We appreciate the opportunity to participate in this pt's ongoing medical care. SUBJECTIVE/HPI: CHIEF COMPLAINT: No chief complaint on file. Type of DM: 0 Onset of DM: patient is not diabetic Home DM Medication Regimen (reported by pt): none Cardiac Procedure: CABG Procedure Date: 03/26/2020 Insulin Drip Rate: 0 Insulin Drip DC Date: 03/29 Since yesterday he passed swallow eval and is able to tolerate PO intake with thickened liquids. Review of Systems Constitutional: Positive for fatigue. HENT: Negative for trouble swallowing and voice change. Respiratory: Negative for choking and shortness of breath. Cardiovascular: Positive for chest pain (improving) and leg swelling. Gastrointestinal: Negative for constipation, diarrhea, nausea and vomiting. Endocrine: Negative for polydipsia and polyphagia. Genitourinary: Negative for dysuria. Musculoskeletal: Negative. Skin: Negative. Neurological: Negative for numbness and headaches. Psychiatric/Behavioral: Negative for dysphoric mood and sleep disturbance. The patient is not nervous/anxious. OBJECTIVE: Vitals: 03/30/20 0600 03/30/20 0700 03/30/20 0800 03/30/20 0932 BP: 125/63 131/62 Pulse: 76 69 65 Resp: Temp: 97.8 F (36.6 C) TempSrc: Oral SpO2: 97% 98% Weight: Height: 5' 10 (1.778 m) Physical Exam Constitutional: Appearance: Normal appearance. HENT: Head: Normocephalic. Mouth/Throat: Mouth: Mucous membranes are dry. Eyes: Conjunctiva/sclera: Conjunctivae normal. Cardiovascular: Rate and Rhythm: Normal rate and regular rhythm. Pulses: Normal pulses. Heart sounds: Normal heart sounds. Pulmonary: Effort: Pulmonary effort is normal. Breath sounds: Normal breath sounds. Comments: Abdominal: General: Bowel sounds are normal. Palpations: Abdomen is soft. Genitourinary: Comments: Voiding via newman Musculoskeletal: Right lower leg: Edema present. Left lower leg: Edema present. Skin: General: Skin is warm and dry. Neurological: Mental Status: He is alert and oriented to person, place, and time. Psychiatric: Mood and Affect: Mood normal. Behavior: Behavior normal. Comments: drowsy 24 hour intake/output: Intake/Output Summary (Last 24 hours) at 03/30/2020 0943 Last data filed at 03/30/2020 0900 Gross per 24 hour Intake 1893 ml Output 3740 ml Net -1847 ml Medications (as per EMR): HomeMeds: Prior to Admission medications Medication Sig Start Date End Date Taking? Authorizing Provider pantoprazole (PROTONIX) 40 MG tablet Take 40 mg by mouth daily Yes Historical Provider, aspirin 81 MG EC tablet Take 81 mg by mouth daily Yes Historical Provider, ramipril (ALTACE) 10 MG capsule Take 10 mg by mouth daily Yes Historical Provider, clopidogrel (PLAVIX) 75 MG tablet Take 75 mg by mouth daily Yes Historical Provider, Scheduled Meds: heparin (porcine) 5,000 Units Subcutaneous Q12H aspirin 81 mg Oral Daily metoprolol tartrate 12.5 mg Oral BID insulin lispro 0-6 Units Subcutaneous TID WC pantoprazole 40 mg Oral QAM AC amiodarone 150 mg Intravenous Once sodium chloride flush 10 mL Intravenous 2 times per day acetaminophen 1,000 mg Oral Q8H polyethylene glycol 17 g Oral Daily sennosides-docusate sodium 2 tablet Oral Nightly Continuous Infusions: amiodarone 0.5 mg/min (03/30/20 0851) phenylephrine (MIKA-SYNEPHRINE) 50mg/250mL infusion Stopped (03/28/20 1540) sodium chloride 20 mL/hr at 03/26/20 1300 dextrose niCARdipine Stopped (03/29/20 0350) PRN Meds:phenylephrine (MIKA-SYNEPHRINE) 50mg/250mL infusion, sodium chloride flush, sodium chlorideflush, potassium chloride, magnesium sulfate, calcium gluconate, morphine OR morphine, ondansetron, potassium chloride, albumin human, sodium chloride, glucose, dextrose, glucagon (rDNA), dextrose, niCARdipine, oxyCODONE OR oxyCODONE Diagnostic Workup: I reviewed Laboratory results, Radiographic results, Other Team Notes at the time oftoday's encounter. BMP: Recent Labs 03/29/20 0253 03/30/20 0002 03/30/20 0503 NA 137 132* 135 K 4.2 3.5 4.1 CL 103 95* 98 CO2 25 29 29 BUN 39* 46* 46* CREATININE 1.37* 1.58* 1.61* GLUCOSE 129* 157* 120* Glucose: Recent Labs 03/29/20 0903 03/29/20 1010 03/29/20 1105 03/29/20 1205 03/29/20 1315 03/29/20 1432 03/29/20 1905 03/29/20 2020 POCGLU 142* 134* 146* 138* 134* 146* 129* 148* HgbA1C: No results for input(s): LABA1C in the last 72 hours. Hepatic: Recent Labs 03/30/20 0002 ALKPHOS 56 ALT 17 AST 43 PROT 5.8* BILITOT 12.9* BILIDIR 7.8* LABALBU 3.3* Lipids: No results for input(s): CHOL, TRIG, HDL, LDLCALC in the last 72 hours. Invalid input(s): LDL Radiology reportsas per the Radiologist Radiology: No results found. History/Other: Past Medical History: Diagnosis Date Chronic kidney disease Diverticulosis of colon 10/19/2006 GERD (gastroesophageal reflux disease) Hyperlipidemia Hypertension Internal hemorrhoids 03/22/2020 Past Surgical History: Procedure Laterality Date HERNIA REPAIR ROTATOR CUFF REPAIR Right Current Medications: Current Facility-Administered Medications: heparin (porcine) injection 5,000 Units, 5,000 Units, Subcutaneous, Q12H aspirin chewable tablet 81 mg, 81 mg, Oral, Daily metoprolol tartrate (LOPRESSOR) tablet 12.5 mg, 12.5 mg, Oral, BID insulin lispro (HUMALOG) injection vial 0-6 Units, 0-6 Units, Subcutaneous, TID WC pantoprazole (PROTONIX) tablet 40 mg, 40 mg, Oral, QAM AC amiodarone (CORDARONE) 150 mg in dextrose 5 % 100 mL bolus, 150 mg, Intravenous, Once FOLLOWED BY [] amiodarone (CORDARONE) 450 mg in dextrose 5 % 250 mL infusion, 1 mg/min, Intravenous, Continuous FOLLOWED BY amiodarone (CORDARONE) 450 mg in dextrose 5 % 250 mL infusion, 0.5 mg/min,Intravenous, Continuous phenylephrine (MIKA-SYNEPHRINE) 50 mg in dextrose 5 % 250 mL infusion, 0.5 mcg/kg/min, Intravenous, Continuous PRN sodium chloride flush 0.9 % injection 10 mL, 10 mL, Intravenous, PRN 0.45 % sodium chloride infusion, , Intravenous, Continuous sodium chloride flush 0.9 % injection 10 mL, 10 mL, Intravenous, 2 times per day sodium chloride flush 0.9 % injection 10 mL, 10 mL, Intravenous, PRN potassium chloride 20 mEq/50 mL IVPB (Central Line), 20 mEq, Intravenous, PRN magnesium sulfate 2 g in 50 mL IVPB premix, 2 g, Intravenous, PRN calcium gluconate 2 g in dextrose 5 % 100 mL IVPB, 2 g, Intravenous, PRN acetaminophen (TYLENOL) tablet 1,000 mg, 1,000 mg, Oral, Q8H morphine (PF) injection 2 mg, 2 mg, Intravenous, Q2H PRN OR morphine (PF) injection 4 mg, 4 mg,Intravenous, Q2H PRN polyethylene glycol (GLYCOLAX) packet 17 g, 17 g, Oral, Daily sennosides-docusate sodium (SENOKOT-S) 8.6-50 MG tablet 2 tablet, 2 tablet, Oral, Nightly ondansetron (ZOFRAN) injection 4 mg, 4 mg, Intravenous, Q8H PRN potassium chloride (KLOR-CON M) extended release tablet 20 mEq, 20 mEq, Oral, PRN albumin human 25 % IV solution 25 g, 25 g, Intravenous, PRN 0.9 % sodium chloride bolus, 250 mL, Intravenous, PRN glucose (GLUTOSE) 40 % oral gel 15 g, 15 g, Oral, PRN dextrose 50 % IV solution, 12.5 g, Intravenous, PRN glucagon (rDNA) injection 1 mg, 1 mg, Intramuscular, PRN dextrose 5 % solution, 100 mL/hr, Intravenous, PRN niCARdipine (CARDENE) 25 mg in sodium chloride 0.9 % 250 mL infusion, 5 mg/hr, Intravenous, Continuous PRN oxyCODONE (ROXICODONE) immediate release tablet 5 mg, 5 mg, Oral, Q4H PRN OR oxyCODONE (ROXICODONE) immediate release tablet 10 mg, 10 mg, Oral, Q4H PRN Allergy(ies): No Known Allergies Family History: Problem Relation Age of Onset Cancer Mother Social History: Reviewed in EMR and H&P and updated if appropriate. I spent 15 minutes with the pt which involved more than 51% of the time in coordination of care, medical evaluation, review of records, and/or counseling of the pt regarding her condition/disease state/prognosis on the date of this note. Associated attestation - Rani Lopez MD - 03/30/2020 7:29 PM EDT I performed a history and physical examination of the patient and discussed the management with theNP/resident. I reviewed the patient's chart including pertinent history, medications, labs, radiology, and other reports. I reviewed the FUNERAL SERVICE APPRENTICE/resident's note and agree with the documented findings and plan of care (with summary/modifications noted if any). Patient in the recliner. Fatigued. Jaundiced. Minimal PO intake. BG stable on SS insulin. BP 129/66 Pulse 69 Temp 97.5 F (36.4 C) (Oral) Resp 19 Ht 5' 10 (1.778 m) Wt 165 lb 12.8oz (75.2 kg) SpO2 96% BMI 23.79 kg/m Awake, responsive, not in distress, RRR, dereased breath sounds, chest incision dressed, +multiple chest tubes, no edema. Dx: Stress hyperglycemia CAD s/p CABG Recent hemorrhagic shock Acute metabolic encephalopathy Plan: - BG stable - discontinue SS insulin - no need for regular glucose monitoring - will sign off Time spent with patient over 51% total time 10 minutes which includes review of records, counseling, management, and coordination of care as documented in note. * Kael Kearns APRN - SEAT COVER CUTTER - 03/30/2020 6:20 AM EDT Cardiothoracic Surgery Progress Note 03/30/2020 Subjective: Admit Date: 03/21/2020 Interval History: S/P Cabgx3 on 03/26/20 w/return to OR for bleeding-POD#4- atrial fib last 24 hr> NSR through night, on amiodarone drip Subjective: Up in chair. States feels terrible. Objective: Vitals: Temp (24hrs), Av.5 F (36.9 C), Min:98.4 F (36.9 C), Max:98.6 F (37 C) BP (!) 117/59 Pulse 76 Temp 98.4 F (36.9 C) (Oral) Resp 20 Ht 5' 10 (1.778 m) Wt 208 lb 12.4 oz (94.7 kg) SpO2 100% BMI 29.96 kg/m I/O: Date 03/30/20 0000 - 03/30/20 235 Shift [id number] [id number] 6958-5852 24 Hour Total INTAKE I.V.(mL/kg/hr) 580 580 Shift Total(mL/kg) 580(6.1) 580(6.1) OUTPUT Chest Tube 15 15 Shift Total(mL/kg) 15(0.2) 15(0.2) Weight (kg) 94.7 94.7 94.7 94.7 Weights: Patient Vitals for the past 96 hrs (Last 3 readings): Weight 03/29/20 0645 208 lb 12.4 oz (94.7 kg) Labs: BMP: Recent Labs 03/29/20 02503/30/20 0002 03/30/20 0503 NA 137 132* 135 K 4.2 3.5 4.1 CL 103 95* 98 CO2 25 29 29 BUN 39* 46* 46* CREATININE 1.37* 1.58* 1.61* GLUCOSE 129* 157* 120* . CBC: Recent Labs 03/28/20 2131 03/29/20 0040 03/29/20 0253 03/30/20 0002 WBC 7.6 -- 9.1 7.1 RBC 2.59* -- 3.13* 3.18* HGB 7.9* 9.2* 9.6* 9.7* HCT 22.7* 26.6* 27.4* 28.0* MCV 87.7 -- 87.5 88.1 MCH 30.4 -- 30.7 30.6 MCHC 34.6 -- 35.1 34.7 RDW 15.6* -- 15.3* 15.3* PLT 46* -- 54* 66* MPV 9.4 -- 9.5 9.7 Hepatic: Recent Labs 03/29/2025203/30/20 0002 AST 43 43 ALT 15 17 BILITOT 8.7* 12.9* ALKPHOS 45 56 INR: Lab Results Component Value Date PROTIME 13.0 03/29/2020 INR 1.2 03/29/2020 Films: CXR portable: Reviewed Physical Exam: Physical Exam Constitutional: General: He is not in acute distress. Appearance: Normal appearance. He is well-developed. He is not diaphoretic. HENT: Head: Normocephalic and atraumatic. Nose: Nose normal. Mouth/Throat: Mouth: Mucous membranes are moist. Eyes: Pupils: Pupils are equal, round, and reactive to light. Neck: Musculoskeletal: Normal range of motion and neck supple. Vascular: No JVD. Cardiovascular: Rate and Rhythm: Normal rate and regular rhythm. Pulses: Dorsalis pedis pulses are 2+ on the right side and 2+ on the left side. Heart sounds: Normal heart sounds, S1 normal and S2 normal. No murmur. No friction rub. No gallop. Pulmonary: Effort: Pulmonary effort is normal. No respiratory distress. Breath sounds: Normal breath sounds. No stridor. Abdominal: General: Bowel sounds are normal. There is no distension. Palpations: Abdomen is soft. Tenderness: There is no abdominal tenderness. Musculoskeletal: Normal range of motion. General: Swelling (right hand) present. No tenderness. Right lower leg: Edema present. Left lower leg: Edema present. Skin: General: Skin is warm and dry. Coloration: Skin is jaundiced. Comments: Sternotomy incision intact with no signs of infection. Epicardial wires capped. Chest tubes to waterseal with serosang drainage. No air leaks. Newman to SD with clear herb urine Neurological: Mental Status: He is alert and oriented to person, place, and time. Psychiatric: Mood and Affect: Mood normal. Behavior: Behavior normal. Thought Content: Thought content normal. Judgment: Judgment normal. Medications: Scheduled Meds: furosemide 40 mg Intravenous Once heparin (porcine) 5,000 Units Subcutaneous Q12H aspirin 81 mg Oral Daily metoprolol tartrate 12.5 mg Oral BID insulin lispro 0-6 Units Subcutaneous TID WC pantoprazole 40 mg Oral QAM AC amiodarone 150 mg Intravenous Once sodium chloride flush 10 mL Intravenous 2 times per day acetaminophen 1,000 mg Oral Q8H polyethylene glycol 17 g Oral Daily sennosides-docusate sodium 2 tablet Oral Nightly Continuous Infusions: amiodarone 0.5 mg/min (03/30/20 0142) phenylephrine (MIKA-SYNEPHRINE) 50mg/250mL infusion Stopped (03/28/20 1540) sodium chloride 20 mL/hr at 03/26/20 1300 dextrose niCARdipine Stopped (03/29/20 0350) Home Meds: Prior to Admission medications Medication Sig Start Date End Date Taking? Authorizing Provider pantoprazole (PROTONIX) 40 MG tablet Take 40 mg by mouth daily Yes Historical Provider, aspirin 81 MG EC tablet Take 81 mg by mouth daily Yes Historical Provider, ramipril (ALTACE) 10 MG capsule Take 10 mg by mouth daily Yes Historical Provider, clopidogrel (PLAVIX) 75 MG tablet Take 75 mg by mouth daily Yes Historical Provider, Diet: DIET CARDIAC; Carb Control: 5 carb choices (75 gms)/meal; Mildly Thick ([place]) Problem List: Principal Problem: Coronary artery disease involving [place] coronary artery of [place] heart with angina pectoris (HCC) Active Problems: Hypertension Hyperlipidemia Chronic kidney disease GERD (gastroesophageal reflux disease) CAD in [place] artery S/P CABG (coronary artery bypass graft) Stress hyperglycemia Postoperative anemia due to acute blood loss Consumptive coagulopathy (HCC) Paroxysmal atrial fibrillation (HCC) Resolved Problems: * No resolved hospital problems. * Assessment and Plan: 1. MVCAD: Status post CABGx3 ROTHMAN-LAD, SVG to RCA, SVG to Diag; left leg EVH; s/p take back to OR for bleeding on 03/26/20 -EF 83% on limited echo 03/27/20 -Core Medication: [x]ASA [x]BB [x] Statin [] ACEi/ARB EF>40% -Anticoagulation: n/a -Invasive Lines:Central Line: Day #4 -Newman: Day# 4 plan discontinue later today 2. Post op Pulm. Mgmt/Resp Failure: now on 97%-4-5 L NC. CXR: Reviewed by Dr. Vallecillo during rounds today. Continue C&DB, Enc use of IS. Plan maintain chest tubes to water seal today. Lasix 40 mg IVP X 1 today with need for further diuresing later this afternoon 3. Post op A fib: On amiodarone drip. Current NSR 60's (per nsg converted around 1 am Continue amiodarone drip likely convert to po tomorrow 4. Hyperbilirubinemia: Bilirubin continues to trend up 12.9. Pt jaundice. Plan per Dr. Vallecillo to consult GI 5. ASHLEIGH on CKD: Creatinine 1.61. U/O good 4 L last 24 hr.s Continue monitor BMP 6. 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 Blood loss Anemia: Hgb:9.7 Stable. No s/s bleeding. Continue to monitor CBC 8. Consumptive Thrombocytopenia: Platelets:66. Slowly trending up. No s/s bleeding. Continue to monitor labs 9. Stress Hyperglycemia: A1C 5.4 Insulin per endocrine 10. Dysphagia: Speech following. Ok diet with thickened liquids advancing per speech 11. Acute post op pain: On scheduled tylenol, lidocaine patch and oxycodone IR prn 12. GI/DVT prophylaxis: PPI/SCD/Teds sq heparin added today (Dr. Vallecillo aware of plt ct) 13. Deconditioned: PT/OT working with pt. Recommending facility based rehab 14. Disposition: Continue progressive care in [facility]- Blood Conservation Initiative Log: - 03/26 multiple blood products intraop/post op due to bleeding. Associated attestation - Angely Vallecillo MD - 03/30/2020 4:02 PM EDT I personally performed a face to face diagnostic evaluation on this patient. I agree with the findings and plan of care as documented by the resident/SEAT COVER CUTTER/FUNERAL SERVICE APPRENTICE/PA, unless otherwise noted. Plan as below. In light of acute on chronic renal failure, please do NOT administer IV contrast. Angely Vallecillo MD Cardiothoracic Surgery * Lotus Castillo RN - 03/29/2020 7:00 PM EDT Pt went into Afib approx. 1815 on 03/29/20. Afib standing orders initiated. Stat 12 lead EKG obtained. Will continue to monitor. * Lorna Amador, PT - 03/29/2020 1:15 PM EDT Physical Therapy Facility/Department: [facility] Initial Assessment NAME: Karen Kearns : 1940 Date of Service: 03/29/2020 Discharge Recommendations: (facility based therapy) PT Equipment Recommendations Equipment Needed: (tbd) Assessment Body structures, Functions, Activity limitations: Decreased functional mobility ;Decreased cognition;Decreased ADL status;Decreased endurance;Decreased strength;Decreased balance;Decreased safe awareness Assessment: Pt. present with impaired mobility. Noted generalized weakness and decreased activity tolerance. Requires max to dependent assist with all functional mobility at this time. Recommend facility based therapy at discharge. Treatment Diagnosis: weakness Prognosis: Fair Decision Making: Medium Complexity PT Education: PT Role;Plan of Care Patient Education: sternal precaution REQUIRES PT FOLLOW UP: Yes Activity Tolerance Activity Tolerance: Patient limited by cognitive status;Patient limited by endurance;Patient limited by fatigue Patient Diagnosis(es): There were no encounter diagnoses. has a past medical history of Chronic kidney disease, Diverticulosis of colon, GERD (gastroesophageal reflux disease), Hyperlipidemia, Hypertension, and Internal hemorrhoids. has a past surgical history that includes Rotator cuff repair (Right) and hernia repair. Restrictions Restrictions/Precautions Restrictions/Precautions: Fall Risk Required Braces or Orthoses?: No Position Activity Restriction Other position/activity restrictions: PAC and introducer on righ tIJ, left radial Art. line. Vision/Hearing Vision: Within Functional Limits Hearing: Exceptions to WFL Hearing Exceptions: Hard of hearing/hearing concerns Subjective General Chart Reviewed: Yes Patient assessed for rehabilitation services?: Yes Family / Caregiver Present: No Diagnosis: CAD Follows Commands: Within Functional Limits General Comment Comments: CAD, CABG x 3 Subjective Subjective: Pt. sitting on chair, awakes but confused and lethargic. Agree with PT treatment, RN aware. Pain Screening Patient Currently in Pain: Yes Pain Assessment Pain Assessment: Faces Hoover-New Pain Rating: Hurts a little bit Pain Location: Chest Functional Pain Assessment: Prevents or interferes some active activities and ADLs Non-Pharmaceutical Pain Intervention(s): Distraction Vital Signs Patient Currently in Pain: Yes Orientation Orientation Overall Orientation Status: Impaired Orientation Level: Disoriented to time;Disoriented to situation;Disoriented to place;Oriented to person Social/Functional History Social/Functional History Lives With: Spouse Type of Home: House Home Layout: Two level, Able to Live on Main level with bedroom/bathroom Home Access: Stairs to enter with rails Entrance Stairs - Number of Steps: 3 Bathroom Shower/Tub: Tub/Shower unit Bathroom Toilet: Standard Bathroom Accessibility: Accessible Home Equipment: (none) ADL Assistance: Independent Homemaking Assistance: Independent Ambulation Assistance: Independent Transfer Assistance: Independent Active Well Logging Mud Analysis Captain: Yes Mode of Transportation: Car Occupation: Retired Additional Comments: Poor historian. Pt stating that he walks without device. Cognition Cognition Overall Cognitive Status: Exceptions Following Commands: Follows one step commands with repetition;Follows one step commands with increased time Insights: Decreased awareness of deficits Initiation: Requires cues for all Sequencing: Requires cues for all Objective Observation/Palpation Posture: Fair Observation: Chest tube x3, PAC and introducer on right RIJ, left radial art. line Edema: both UE and LE AROM RLE (degrees) RLE AROM: WFL AROM LLE (degrees) LLE AROM : WFL Strength RLE Comment: 3+/5 Strength LLE Comment: 3+/5 Tone RLE RLE Tone: Normotonic Tone LLE LLE Tone: Normotonic Motor Control Gross Motor?: WFL Sensation Overall Sensation Status: WFL Bed mobility Comment: NT-pt sitting on chair Transfers Sit to Stand: Maximum Assistance Comment: Attempted 2x sit to stand from EOB with max to dependent assist but unable to to complete.Pt tries to initiate but no lift off. Ambulation Ambulation?: No Stairs/Curb Stairs?: No Balance Posture: Fair Sitting - Static: - Sitting - Dynamic: Fair;- Standing - Static: (na) Standing - Dynamic: (na) Exercises Knee Long Arc Quad: 10 Ankle Pumps: 10 Upper Extremity: 10 Core Strengthenin, partial sit ups, sitting position: back leaning to leaning forward, maintaining sternal precaution. Plan Plan Times per week: 5-7x/wk Plan weeks: 2 weeks Current Treatment Recommendations: Strengthening, Transfer Training, Balance Training, Gait Training, Functional Mobility Training, Home Exercise Program Safety Devices Type of devices: Left in chair, Nurse notified(N95 and faceshield) Restraints Initially in place: No G-Code OutComes Score AM-[facility] Score AM-[facility] Inpatient Mobility Raw Score : 6 (03/29/201315) AM-[facility] Inpatient T-Scale Score : 23.55 (03/29/201315) Mobility Inpatient CMS 0-100% Score: 100 (03/29/201315) Mobility Inpatient CMS G-Code Modifier : CN (03/29/201315) Goals Short term goals Time Frame for Short term goals: 2 weeks Short term goal 1: bed mobility min. assist Short term goal 2: transfers min. assist Short term goal 3: ambulate 50 ft, with device, min. assist Short term goal 4: supervision with P&C ex, IS, secretion clearance and understanding of walking program. Patient Goals Patient goals : Did not state. Patient s Physical Therapy Plan of Care supervision is transferred to [facility] Rehab Department Physical Therapist. Therapy Time Individual Concurrent Group Co-treatment Time In 1015 Time Out 1035 Minutes 20 Lorna Amador, PT,GCS * Bijal Chou MD - 03/29/2020 1:15 PM EDT Critical Care Progress Note 03/29/2020 1:15 PM Subjective: Admit Date: 03/21/2020 PCP: KEVYN SIM MD No chief complaint on file. Interval History: - CABGx3 + takeback for bleeding 03/26 - extubated yesterday, required NIV overnight for shallow respirations and hypoxia - receiving additional PRBCs overnight into this AM (planned lasix dose in between per report) - on my eval he is OOB sitting comfortably in chair. Somnolent but arousable to voice and answers some simple yes/no questions today. Significant generalized weakness. - passed AUTO APPRENTICE MECHANIC swallow eval for modified diet (thickened liquids) - was in AFRVR yesterday AM, spont converted to NSR after weaning levo - off pressors this AM (including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 breathing. Cardene for hypertension-currently off; labile BPs throughout night. Hgb 9.6 s/p 2 units PRBC (40mg lasix given inbetween and after units); resting in bed. Alert following commands-drowsy. Gtts: Amiodarone Insulin Last recorded/verified vitals in [facility] Temp: 99.1 F (37.3 C) Pulse: 69 BP: 125/61 Resp: 27 SpO2: 99 % Recent Labs 03/28/20 1508 03/28/20 2131 03/29/20 0040 03/29/20 0253 WBC 10.2 7.6 -- 9.1 HGB 6.8* 7.9* 9.2* 9.6* PLT 67* 46* -- 54* INR 1.3* 1.2* -- 1.2* NA 136 136 -- 137 K 4.5 4.7 -- 4.2 CREATININE 1.22 1.30* -- 1.37* CXR Lines RIJ-03/26; Jayla 03/26, newman 03/26 I&O +8.3L fluid balance, UO-3.1L/24hrs CT output 390 (80/130/180) Home meds - Protonix, ASA (81), ramipril 10mg daily, plavix [x] Current Medications, pmHx, Allergies, and sHx reviewed and updated as appropriate Review of Systems Constitutional: Positive for fatigue. Negative for diaphoresis and fever. Complains of dry wants NIV mask off Respiratory: Positive for chest tightness. Negative for cough, shortness of breath and wheezing. Cardiovascular: Positive for leg swelling. Negative for chest pain and palpitations. Gastrointestinal: Negative for abdominal distention, constipation and diarrhea. Skin: Negative for color change, pallor and rash. Physical Exam Constitutional: Interventions: Face mask in place. Cardiovascular: Rate and Rhythm: Normal rate and regular rhythm. Occasional extrasystoles are present. Heart sounds: Normal heart sounds. No murmur. Pulmonary: Effort: Accessory muscle usage present. Breath sounds: Examination of the right-lower field reveals decreased breath sounds. Examination ofthe left-lower field reveals decreased breath sounds. Decreased breath sounds present. Abdominal: General: Bowel sounds are normal. There is distension. Palpations: Abdomen is soft. Abdomen is not rigid. Tenderness: There is no abdominal tenderness. Genitourinary: Comments: Newman to straight drain Musculoskeletal: Right lower le+ Pitting Edema present. Left lower le+ Pitting Edema present. Skin: General: Skin is warm and dry. Capillary Refill: Capillary refill takes less than 2 seconds. Findings: Bruising and ecchymosis present. Neurological: Mental Status: He is alert and easily aroused. Psychiatric: Mood and Affect: Affect is flat. Behavior: Behavior is cooperative. Assessment/Plan Patient Active Problem List Diagnosis Code Hypertension I10 Hyperlipidemia E78.5 Chronic kidney disease N18.9 GERD (gastroesophageal reflux disease) K21.9 Coronary artery disease involving [place] coronary artery of [place] heart with angina pectoris (HCC)I25.119 CAD in [place] artery I25.10 S/P CABG (coronary artery bypass graft) Z95.1 Stress hyperglycemia R73.9 Postoperative anemia due to acute blood loss D62 Consumptive coagulopathy (HCC) D65 Paroxysmal atrial fibrillation (HCC) I48.0 CAD/HTN/HLD s/p CABGx3 ROTHMAN-LAD, SVG to RCA, SVG to Diag; left leg EVH; s/p take back to OR for bleeding on 03/26 Continue care per orders: tolerating ice chips. Liquids ~ok per nsg. Will get formal speech eval today. Diuresis. IV lasix this am; reassess this afternoon. Low dose BB added with hold parameters. Switch amio from gtt to PO. Likely remove swan this am will discuss on rounds. PT/OT eval. OOB per protocol. Cardiac Core Medications: ASA, Statin and BB Blood Conservation: 03/26: multiple blood products intraop/post op due to bleeding. DVT prophylaxis: TEDs and SCDs hold sub q heparin->plt <100; no lovenox due to kidney function POAF Likely related to surgery no prior history; Currently SR (converted 03/28 after x3 amio bolus + 500mcg dig) currently on amio gtt. Low dose BB added today; transition amio to PO this morning. Post Operative Pulmonary Management Acute Post-Operative Respiratory Insufficiency: improving; NIV currently extubated 03/28. Wean as able. CCM:consulted-managing Maintain SpO2 >92% and Increase Activity, Encourage Pulmonary Hygiene: Acapella, Incentive Spirometry, Cough and Deep Breathing Stress hyperglycemia Insulin per endo CKD stage III Baseline SCr ~1.4; GFR ~54; appears at baseline; 3.5L UO/24hrs tolerated diuresis yesterday; repeattoday. Ok for slightly higher BPs SBP <140 ok for cardene if hypertensive. Acute blood loss anemia/consumptive coagulopathy Multiple transfusions intraop and post op; likely related to surgery and plavix. Hgb stable continue to monitor Will discuss with CT surgeron Disclaimer ? INFORMED CONSENT:The nature and purpose of the proposed treatment or procedure have been discussed. The risks and benefits of the proposed treatment or procedures have been reviewed. Alternatives have been reviewed in addition to the risks and benefits of not receiving treatments or undergoing procedures. Pursuant to this discussion, the patient agrees to undergo the proposed treatment or procedure. ? Captured images seen in this note from are not a substitute for a comprehensive interpretation ofthe entire data set as reflected by the interpreting physician with regard to radiology, echocardiography, and other diagnostic images. ? This note may have been dictated using [employer] Practice Edition 2.6 and/or [employer] Voice Recognition Feature. The document was proofread, however unrecognized voice recognition material handling technician errors may be present. * Nguyen Hernandez RN - 03/28/2020 9:07 PM EDT 1930: Report hand off given by day shift nurse, pt said to have stroke like symptoms after extubation. Assessed pt and he was able to state name, date of , and what month it was. Still confused on situation/time, which this nurse reoriented him. Pt able to follow commands: squeezed hands equally bilaterally and move toes/flex/extend bilaterally. Pt speaking clearly, but slow to respond with slurred speech at times. 2100: Dr. Vallecillo called to check in on patient status, discussed BP, would like to keep MAP [id number], keeping systolic . May use Cardene to achieve this outcome. Pt not currently on anyblood pressure support. Pt relatively stable at this point. Will continue to monitor closely. * Lotus Castillo RN - 03/28/2020 5:07 PM EDT 03/28/2020 1700 - Patient extubated at 1553. Following commands both R and L sides, facial droop questionable. Not answering questions appropriately. José Antonio assessed and will reasses on 03/29/2020 in morning when sedation has worn off. * Randall Gamino PT - 03/28/2020 2:51 PM EDT Physical Therapy Facility/Department: [facility] Pt still on pressors while being intubated/sedated. Pt still not appropriate. Will continue to follow Randall Gamino PT * Marisa Zepeda, FIELD CROPS HARVEST MACHINE OPERATOR - 03/28/2020 2:46 PM EDT [facility] Respiratory Care Department Progress Note Spontaneous Breathing Trial (SBT) Start: 2-3 min to Stabilize After 15 min After 30 min HR 69 64 75 SpO2 (%) 100 100 100 RR 15 13 22 VT (L) 382 442 415 Total RSBI (RR/VT in Liters) 53 Pass SBT (RSBI must be?105 to pass) y Peep 8 PS 5 Pt's BP was elevated. Comments (state reason if SBT failed): Additional data if requested: NIF = VC = Name of physician results were reported to: Dr José Antonio Nelson Time results reported to physician: 3:36pm Thank you for involving Respiratory in the care of this patient, * Priscila Brown, STAPLE CUTTER - BAG TURNER - 03/28/2020 11:02 AM EDT Department of Internal Medicine Division of Endocrinology, Diabetes, & Metabolism Endocrinology Progress Note Patient Name: Karen Kearns : 1940 AGE: 79 y.o. Admission Date: 03/21/2020 8:07 PM Date of Initial Consult: 03/26/20 Reason for Endocrine Consult: post op management Provider/Team Requesting Consult: Dr Milelr PCP: KEVYN SIM MD Outpt Supervisor Warping Department: no ASSESSMENT: Stress hyperglycemia S/P CABG x3 PLAN: Maintain insulin drip due to patient status and continuation of pressors ANTICIPATED ENDOCRINE HOME GOING RECOMMENDATIONS: Optimized for Discharge from Endocrine standpoint: No Home Going Endocrine Rx Recommendations-- No medication is anticipated at this time, will continue to follow and make reccomendations Outpt Follow Up Endocrine Testing-- N/a Appointment request sent to Endo office Staff: No Endocrine Team Contact(s): Supervisor Warping Department On-Call: John Preferred Method of Communication/Reaching: PerfectServe. The above physician should be paged w/ questions/concerns about items being managed by Endocrinology Team. We appreciate the opportunity to participate in this pt's ongoing medical care. SUBJECTIVE/HPI: CHIEF COMPLAINT: No chief complaint on file. Type of DM: 0 Onset of DM: patient is not diabetic Home DM Medication Regimen (reported by pt): none Cardiac Procedure: CABG Procedure Date: 03/26/2020 Insulin Drip Rate: 2 units/hr. 12 hour total ~35.5 units Insulin Drip DC Date: Patient remains intubated and sedated post CABG x3 Patient continues on levo and vaso which are being weaned. He wakes up appropriately with his sedation. 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 Appearance: Normal appearance. He is normal weight. He is ill-appearing. He is not toxic-appearing or diaphoretic. Comments: Intubated sedated elderly male HENT: Head: Normocephalic and atraumatic. Right Ear: External ear normal. Left Ear: External ear normal. Mouth/Throat: Mouth: Mucous membranes are moist. Cardiovascular: Rate and Rhythm: Normal rate and regular rhythm. Pulses: Normal pulses. Heart sounds: Normal heart sounds. Pulmonary: Effort: Pulmonary effort is normal. No respiratory distress. Breath sounds: Normal breath sounds. Comments: Chest tube x3 Abdominal: General: Bowel sounds are normal. Palpations: Abdomen is soft. Genitourinary: Comments: Voiding via newman Musculoskeletal: General: Swelling (generalized) present. Skin: General: Skin is warm and dry. 24 hour intake/output: Intake/Output Summary (Last 24 hours) at 03/28/2020 1105 Last data filed at 03/28/2020 1000 Gross per 24 hour Intake 5761 ml Output 1865 ml Net 3896 ml Medications (as per EMR): HomeMeds: Prior to Admission medications Medication Sig Start Date End Date Taking? Authorizing Provider pantoprazole (PROTONIX) 40 MG tablet Take 40 mg by mouth daily Yes Historical Provider, aspirin 81 MG EC tablet Take 81 mg by mouth daily Yes Historical Provider, ramipril (ALTACE) 10 MG capsule Take 10 mg by mouth daily Yes Historical Provider, clopidogrel (PLAVIX) 75 MG tablet Take 75 mg by mouth daily Yes Historical Provider, Scheduled Meds: sodium chloride flush 10 mL Intravenous 2 times per day acetaminophen 1,000 mg Oral Q8H polyethylene glycol 17 g Oral Daily sennosides-docusate sodium 2 tablet Oral Nightly pantoprazole 40 mg Intravenous Daily And sodium chloride (PF) 10 mL Intravenous Daily chlorhexidine 15 mL Mouth/Throat BID mupirocin Nasal BID Continuous Infusions: amiodarone 0.5 mg/min (03/28/20 1103) phenylephrine (MIKA-SYNEPHRINE) 50mg/250mL infusion 0.5 mcg/kg/min (03/28/20 0836) lactated ringers 75 mL/hr at 03/28/20 0134 sodium chloride 20 mL/hr at 03/26/20 1300 insulin 2 Units/hr (03/28/20 1051) dextrose norepinephrine 0.03 mcg/kg/min (03/28/20 1015) niCARdipine fentaNYL 150 mcg/hr (03/28/20 0539) vasopressin (Septic Shock) infusion 0.02 Units/min (03/28/20 0752) midazolam 5 mg/hr (03/28/20 0800) PRN Meds:phenylephrine (MIKA-SYNEPHRINE) 50mg/250mL infusion, perflutren lipid microspheres, sodium chloride flush, sodium chloride flush, sodium chloride flush, potassium chloride, magnesium sulfate,calcium gluconate, morphine OR morphine, ondansetron, potassium chloride, albumin human, sodiumchloride, glucose, dextrose, glucagon (rDNA), dextrose, niCARdipine, insulin regular, oxyCODONE OR oxyCODONE Diagnostic Workup: I reviewed Laboratory results, Radiographic results, Other Team Notes at the time oftoday's encounter. BMP: Recent Labs 03/27/20 2101 03/28/20 0315 03/28/20 0830 NA 136 137 135 K 4.1 4.1 4.1 CL 104 109* 106 CO2 26 25 24 BUN 36* 36* 34* CREATININE 1.30* 1.19 1.17 GLUCOSE 133* 63* 108* Glucose: Recent Labs 03/28/20 0429 03/28/20 0505 03/28/20 0609 03/28/20 0708 03/28/20 0757 03/28/20 0907 03/28/20 1004 03/28/20 1058 POCGLU 110* 124* 150* 133* 128* 110* 87 69* HgbA1C: No results for input(s): LABA1C in the last 72 hours. Hepatic: Recent Labs 03/28/20 0830 ALKPHOS 37* ALT 13 AST 39 PROT 5.0* BILITOT 6.0* BILIDIR 2.8* LABALBU 2.7* Lipids: No results for input(s): CHOL, TRIG, HDL, LDLCALC in the last 72 hours. Invalid input(s): LDL Radiology reportsas per the Radiologist Radiology: No results found. History/Other: Past Medical History: Diagnosis Date Chronic kidney disease Diverticulosis of colon 10/19/2006 GERD (gastroesophageal reflux disease) Hyperlipidemia Hypertension Internal hemorrhoids 03/22/2020 Past Surgical History: Procedure Laterality Date HERNIA REPAIR ROTATOR CUFF REPAIR Right Current Medications: Current Facility-Administered Medications: [COMPLETED] amiodarone (CORDARONE) 150 mg in dextrose 5 % 100 mL bolus, 150 mg, Intravenous, Once FOLLOWED BY [] amiodarone (CORDARONE) 450 mg indextrose 5 % 250 mL infusion, 1 mg/min, Intravenous, Continuous FOLLOWED BY amiodarone (CORDARONE) 450 mg in dextrose 5 % 250 mL infusion, 0.5 mg/min, Intravenous, Continuous phenylephrine (MIKA-SYNEPHRINE) 50 mg in dextrose 5 % 250 mL infusion, 0.5 mcg/kg/min, Intravenous, Continuous PRN perflutren lipid microspheres (DEFINITY) injection 1.65 mg, 1.5 mL, Intravenous, ONCE PRN sodium chloride flush 0.9 % injection 10 mL, 10 mL, Intravenous, PRN lactated ringers infusion, , Intravenous, Continuous sodium chloride flush 0.9 % injection 10 mL, 10 mL, Intravenous, PRN 0.45 % sodium chloride infusion, , Intravenous, Continuous sodium chloride flush 0.9 % injection 10 mL, 10 mL, Intravenous, 2 times per day sodium chloride flush 0.9 % injection 10 mL, 10 mL, Intravenous, PRN potassium chloride 20 mEq/50 mL IVPB (Central Line), 20 mEq, Intravenous, PRN magnesium sulfate 2 g in 50 mL IVPB premix, 2 g, Intravenous, PRN calcium gluconate 2 g in dextrose 5 % 100 mL IVPB, 2 g, Intravenous, PRN acetaminophen (TYLENOL) tablet 1,000 mg, 1,000 mg, Oral, Q8H morphine (PF) injection 2 mg, 2 mg, Intravenous, Q2H PRN OR morphine (PF) injection 4 mg, 4 mg,Intravenous, Q2H PRN polyethylene glycol (GLYCOLAX) packet 17 g, 17 g, Oral, Daily sennosides-docusate sodium (SENOKOT-S) 8.6-50 MG tablet 2 tablet, 2 tablet, Oral, Nightly ondansetron (ZOFRAN) injection 4 mg, 4 mg, Intravenous, Q8H PRN pantoprazole (PROTONIX) injection 40 mg, 40 mg, Intravenous, Daily AND sodium chloride (PF) 0.9% injection 10 mL, 10 mL, Intravenous, Daily chlorhexidine (PERIDEX) 0.12 % solution 15 mL, 15 mL, Mouth/Throat, BID mupirocin (BACTROBAN) 2 % ointment, , Nasal, BID potassium chloride (KLOR-CON M) extended release tablet 20 mEq, 20 mEq, Oral, PRN albumin human 25 % IV solution 25 g, 25 g, Intravenous, PRN 0.9 % sodium chloride bolus, 250 mL, Intravenous, PRN insulin regular (MYXREDLIN) 100 units in sodium chloride 0.9 % 100 ml infusion, 1 Units/hr, Intravenous, Continuous glucose (GLUTOSE) 40 % oral gel 15 g, 15 g, Oral, PRN dextrose 50 % IV solution, 12.5 g, Intravenous, PRN glucagon (rDNA) injection 1 mg, 1 mg, Intramuscular, PRN dextrose 5 % solution, 100 mL/hr, Intravenous, PRN norepinephrine (LEVOPHED) 16 mg in sodium chloride 0.9 % 250 mL infusion, 0.03 mcg/kg/min, Intravenous, Continuous niCARdipine (CARDENE) 25 mg in sodium chloride 0.9 % 250 mL infusion, 5 mg/hr, Intravenous, Continuous PRN insulin regular (HUMULIN R;NOVOLIN R) injection 4 Units, 4 Units, Intravenous, PRN oxyCODONE (ROXICODONE) immediate release tablet 5 mg, 5 mg, Oral, Q4H PRN OR oxyCODONE (ROXICODONE) immediate release tablet 10 mg, 10 mg, Oral, Q4H PRN fentanyl (SUBLIMAZE) 1,000 mcg in sodium chloride 0.9% 100 mL infusion, 100 mcg/hr, Intravenous, Continuous vasopressin 20 Units in dextrose 5 % 100 mL infusion, 0.02 Units/min, Intravenous, Continuous midazolam (VERSED) 100 mg in dextrose 5 % 100 mL infusion, 2 mg/hr, Intravenous, Continuous Allergy(ies): No Known Allergies Family History: Problem Relation Age of Onset Cancer Mother Social History: Reviewed in EMR and H&P and updated if appropriate. I spent 20 minutes with the pt which involved more than 51% of the time in coordination of care, medical evaluation, review of records, and/or counseling of the pt regarding her condition/disease state/prognosis on the date of this note. Associated attestation - Rani Lopez MD - 03/28/2020 1:50 PM EDT I performed a history and physical examination of the patient and discussed the management with theNP/resident. I reviewed the patient's chart including pertinent history, medications, labs, radiology, and other reports. I reviewed the FUNERAL SERVICE APPRENTICE/resident's note and agree with the documented findings and plan of care (with summary/modifications noted if any). Patient remains critically ill. He is still on multiple pressors, being weaned. Still intubated andsedated. No nutrition. BG fluctuating between 51-150 the past 24 hrs; has been on insulin 0-4.5 units per hour; currently off since 1100. BP (!) 123/56 Pulse 66 Temp 99.1 F (37.3 C) (Core) Resp 18 Ht 5' 10 (1.778 m) Wt 182 lb 14.4 oz (83 kg) SpO2 100% BMI 26.24 kg/m Intubated/sedated, not in distress, RRR, dereased breath sounds, chest incision dressed, +multiple chest tubes, no edema, LLE wrapped. Dx: Stress hyperglycemia CAD s/p CABG Hypotension/anemia Respiratory failure Plan: - will switch insulin infusion protocol to ICU protocol with BG target of 140- 180 to avoid hypoglycemia - will transition to subcutaneous insulin once more stable - continue blood glucose monitoring - counseling limited due to pt status - patient unlikely require any pharmacotherapy on discharge for hyperglycemia - will follow Time spent with patient over 51% total time 15 minutes which includes review of records, counseling, management, and coordination of care as documented in note. * Bijal Chou MD - 03/28/2020 9:54 AM EDT Critical Care Progress Note 03/28/2020 9:54 AM Subjective: Admit Date: 03/21/2020 PCP: KEVYN SIM MD No chief complaint on file. Interval History: - POD2 CABGx3 + takeback for bleeding - weaning pressors overnight, however went into AFib w/RVR now s/p digoxin + amio bolus x2 + gtt - good UOP ~2L/24h - waking up appropriately w/current sedation, comfortable on vent with low support/settings Review of Systems Diet: Diet NPO Effective Now Exceptions are: Other (See Comment) Medications: Scheduled Meds: sodium chloride flush 10 mL Intravenous 2 times per day acetaminophen 1,000 mg Oral Q8H polyethylene glycol 17 g Oral Daily sennosides-docusate sodium 2 tablet Oral Nightly pantoprazole 40 mg Intravenous Daily And sodium chloride (PF) 10 mL Intravenous Daily chlorhexidine 15 mL Mouth/Throat BID mupirocin Nasal BID Continuous Infusions: amiodarone 1 mg/min (03/28/20 0510) Followed by amiodarone phenylephrine (MIKA-SYNEPHRINE) 50mg/250mL infusion 0.5 mcg/kg/min (03/28/20 0836) lactated ringers 75 mL/hr at 03/28/20 0134 sodium chloride 20 mL/hr at 03/26/20 1300 insulin 4.5 Units/hr (03/28/20 0804) dextrose norepinephrine 0.11 mcg/kg/min (03/28/20 0845) niCARdipine fentaNYL 150 mcg/hr (03/28/20 0539) vasopressin (Septic Shock) infusion 0.02 Units/min (03/28/20 0752) midazolam 5 mg/hr (03/28/20 0800) Objective: Vitals: Temp (24hrs), Av.5 F (37.5 C), Min:99.1 F (37.3 C), Max:99.7 F (37.6 C) BP (!) 145/70 Pulse 71 Temp 99.7 F (37.6 C) (Core) Resp 18 Ht 5' 10 (1.778 m) Wt 182 lb 14.4 oz (83 kg) SpO2 98% BMI 26.24 kg/m I/O: 03/27 0701 - 03/28 07 In: 6111 [I.V.:5231] Out: 1960 [Urine:1410] CVP: CVP (Mean): 15 mmHg Invasive Lines: - SGC 03/26/20 - ETT 03/26/20 - chest tubes x4 03/26/20 - L radial art line 03/26/20 Ventilator Settings: Vent Mode: AC/VC+ Rate Set: 18 bmp Vt Ordered: 500 mL Pressure Support: 0 cmH20 PEEP/CPAP: 8 FiO2 : 30 % PHYSICAL EXAM: General Appearance: [x]WDWN []Obese []Cachectic []Thin []ill Skin: Temperature [x]Warm []Cool / Rash []Yes [x]No / Tattoo(s) []Yes [x]No - mildly jaundiced Heent: Pupils round and react []Yes []No Sclera []Icteric []Non-Icteric Conjunctiva []Injected [x]Non-Injected / Pinnae [x]Normal []Other/ Dentitian [][place] Teeth []Dentures Oral Mucosa []Iron Belt [x]Moist []Dry/ Oral ETT [x]Present []Absent Neck: Trachea midline [x]Yes []No/ Thyromegaly []Yes []No/ Crepitus []Present [x]Absent /Jvd []Present []Absent Lungs: []Clear [x]Crackles []Wheezes []Rhonchi / Respiratory effort []Labored [x]Non-Labored Heart: []ST [x]Irregularly Irregular + tachy rates 130s this AM []murmur present []murmur absent/ Peripheral Edema [x]Absent []Present Abdomen: [x]Soft Bowel Sounds []Present []Absent []Diminished []Hyperactive []Hypoactive []Tender []Non-Tender []Distended [x]Non-distended / Hernia []Present []Absent / Organomegaly [x]Absent []Present/ []Scar Extremities: Cyanosis []Present [x]Absent/ CARDOZA ([]RUE []RLE []LUE []LLE) Neurologic: EGEGIK []Yes []No Corneal reflexes []Present []Absent / Plantar reflexes []Up []Down []Absent / Withdraws to tactile [x]Yes []No/ Follows Commands []Yes [x]No []Unresponsive to verbal Psych: Alert []yes [x]no Oriented []x0 []x1 []x2 []x3 / Affect []Normal []Flat []Aggitated []Calm [x]Sedated []NAD Labs: BMP: Recent Labs 03/27/20210003/28/2031403/28/20 0830 NA 136 137 135 K 4.1 4.1 4.1 CL 104 109* 106 CO2 26 25 24 BUN 36* 36* 34* CREATININE 1.30* 1.19 1.17 GLUCOSE 133* 63* 108* . Ionized Calcium: Lab Results Component Value Date IONCA 4.70 03/28/2020 IONCA 5.10 03/28/2020 Hepatic: Recent Labs 03/28/2031403/28/20 0830 AST 53* 39 ALT 13 13 BILITOT 6.2* 6.0* ALKPHOS 33* 37* Troponin: No results for input(s): TROPONINI in the last 72 hours. Lactate: Lab Results Component Value Date LACTA 1.2 03/28/2020 LACTA 1.0 03/28/2020 LACTA 1.4 03/27/2020 ABG: Recent Labs 03/28/2031403/28/20 0830 PH 7.48* 7.46 CBC: Recent Labs 03/28/2031403/28/20 0830 WBC 10.5 11.2* HGB 8.0* 8.0* PLT 69* 74* CK: Recent Labs 03/27/20 0933 03/28/20 0830 CKTOTAL 227* 306* BNP: No results for input(s): BNP in the last 72 hours. INR: Recent Labs 03/28/20 0315 03/28/20 0830 INR 1.4* 1.3* CORTISOL: Recent Labs 03/27/20 2101 CORTISOL 22.3 TSH: No results for input(s): TSH in the last 72 hours. PROCALCITONIN: No results for input(s): PROCAL in the last 72 hours. LIPIDS: No results for input(s): CHOL, HDL in the last 72 hours. Invalid input(s): LDLCALCU UA: Recent Labs 03/25/20 1636 COLORU Light-Yellow LEUKOCYTESUR Negative UROBILINOGEN Normal BILIRUBINUR Negative GLUCOSEU Normal Cultures: No results for input(s): LABURIN in the last 72 hours. No results for input(s): BC in the last 72 hours. No results for input(s): BLOODCULT2 in the last 72 hours. No results for input(s): CULTRESP in the last 72 hours. No results for input(s): CXCATHTIP in the last 72 hours. No results for input(s): LEGUR in the last 72 hours. Invalid input(s): STREPPNEUMAGU No results for input(s): LABGRAM in the last 72 hours. Films: CXR portable: Results for orders placed during the hospital encounter of 03/21/20 XR CHEST PORTABLE Narrative Patient Name: KAREN KEARNS [facility]: [id number] ---Diagnostic Radiology--- Exam Date/Time 03/26/2020 21:10:12 EDT Exam CR Chest Portable Ordering Physician [id number] ANGELY AC Accession Number [id number] CPT4 Codes 90127 () Reason For Exam post operative Report SINGLE FRONTAL VIEW OF THE CHEST CLINICAL INDICATION: post operative TECHNIQUE: Single frontal view of the chest COMPARISON: 03/26/2020 FINDINGS: Endotracheal tube tip 6.1 cm above the bert. Blair-Dhaval catheter tip is in the proximal right pulmonary artery. NG tube tip is not included on the study but is at least as far distal as the gastric fundus. No pneumothorax seen. There appear to be mediastinal drains there is extensive overlapping tubing in wiring. Left chest tube terminates apically. No definite pneumothorax seen. Mild right basilar atelectasis or infiltrate. Left lung is small compared to the right, similar to yesterday's study. IMPRESSION: 1. Tubes and lines as described. Right basilar atelectasis or infiltrate. 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 - hemorrhagic shock: resolved - AFib w/RVR - acute blood loss anemia - consumptive coagulopathy - elevated bilirubin likely 2/2 hemolysis 2/2 above - ASHLEIGH on CKD - HTN - HPL - GERD Plan: - pressors: off epi, remains on levo w/dose increasing after vaso stopped overnight: -- restart vasopressin and continue for now -- start phenylephrine and wean levo (avoid beta stim w/RVR) - continue amio gtt - consider re-dosing digoxin - would consider DCC if no improvement in RVR with levo wean - hold on SBT pending improved hemodynamics - continue current sedation regimen w/fentanyl + versed, can begin to slowly wean versed today as tolerated (had hypotension with sedation wean yesterday) - ASHLEIGH on CKD w/SCr improving: continue to avoid hypotension and wean off all pressors as able, avoid additional nephrotoxins - if requiring fluids/volume expansion would use albumin (serum albumin low at 2.7 w/worsening third spacing) - elevated LFTs w/elevated bili: checking RUQ US w/dopplers and hemolysis labs: suspect secondary to low grade hemolysis w/initial coagulopapthy post-op, will continue to trend LFTs - platelets stable - hgb stable without further transfusions required overnight - holding ASA and DVT ppx for now Prophylaxis: Stress ulcer: [x] PPI Agent [] H2RA [] Sucralfate [] Other: VTE: [] Enoxaparin [] SC Heparin [x] SCD Full Code Excluding procedures, the total critical care time caring for this patient with life threatening, unstable organ failure, including direct patient contact, review of medical record, management of life support systems, review of data including imaging and labs, discussions with other team members, patient's family and physicians at least 35 min minutes so far today. * Estela Armendariz APRN - CNP - 03/28/2020 7:28 AM EDT After rounds: wean levo; use mika instead; turn vaso back on at 0.02 units/hr. Check LDH, haptoglobin, UA, blood smear; free plasma hemoglobin, and liver ultrasound. * Estela Armendariz APRN - CNP - 03/28/2020 5:13 AM EDT Cardiothoracic Surgery Progress Note PATIENT NAME: Karen Kearns : 1940 (79 y.o.) TODAY'S DATE: 03/28/2020 Interval History: 03/26: CABGx3 ROTHMAN-LAD, SVG to RCA, SVG to Diag; left leg EVH; s/p take back to OR for bleeding 03/28: POD #2: intubated sedated; alert opens eyes to commands. Afib RVR this morning->amio bolus and gtt started + x1 dose dig; vasopressin cut in half per CCM HR currently 1303-150's. Weaned offepi ~3am Gtts: Amiodarone Levophed- 0.09mcg/kg/min Vasopressin- 0.01 units/min Fentanyl- 100mcg/hr Versed-4mg/hr Insulin A-line: ABP (Arterial line BP): 161/86 Hemodynamic Monitoring Hemodynamic Device: Blair-Dhaval Core (Body) Temperature: 99.9 F (37.7 C) PAP: 37/25 PAP (Mean): 31 mmHg CVP (Mean): 20 mmHg CO (l/min): 5.4 l/min CI (l/min/m2): 2.7 l/min/m2 SVR (dyne*sec)/cm5: 985 (dyne*sec)/cm5 Current Vent Settings: Management per [facility] Vent Mode: AC/VC+ Rate Set: 18 bmp Vt Ordered: 500 mL Pressure Support: 0 cmH20 PEEP/CPAP: 8 FiO2 : 30 % Last ABG: Lab Results Component Value Date/Time HGBAE 8.6 03/28/2020 03:15 AM PHART 7.469 (H) 03/28/2020 03:15 AM PO2ART 91.7 03/28/2020 03:15 AM PFG4QYZ 25.1 (H) 03/28/2020 03:15 AM WYN2ORZ 26.1 03/28/2020 03:15 AM BEART 1.4 03/28/2020 03:15 AM T2CMPKWS 96.5 03/28/2020 03:15 AM FIO2A no data 03/28/2020 03:15 AM Last recorded/verified vitals in [facility] Temp: 99.7 F (37.6 C) Pulse: 157 BP: (!) 167/93 Resp: 21 SpO2: 98 % Recent Labs 03/27/20 1503 03/27/20 2101 03/28/20 0145 03/28/20 0315 WBC 15.6* 12.1* -- 10.5 HGB 8.3* 7.2* 8.1* 8.0* PLT 116* 86* -- 69* INR 1.3* 1.5* -- 1.4* NA 137 136 -- 137 K 4.0 4.1 -- 4.1 CREATININE 1.29* 1.30* -- 1.19 CXR Lines RIJ-03/26; Malott 03/26, newman 03/26 I&O +5.3L fluid balance; UO 1.2L/24hrs CT output 460 (90,150,220) Home meds - Protonix, ASA (81), ramipril 10mg daily, plavix [x] Current Medications, pmHx, Allergies, and sHx reviewed and updated as appropriate Review of Systems Unable to perform ROS: Intubated alert follows commands Physical Exam Constitutional: Interventions: He is intubated. Cardiovascular: Rate and Rhythm: Tachycardia present. Rhythm irregular. Extrasystoles are present. Heart sounds: Normal heart sounds. No murmur. Pulmonary: Effort: Pulmonary effort is normal. He is intubated. Breath sounds: Examination of the right-lower field reveals decreased breath sounds. Examination ofthe left-lower field reveals decreased breath sounds. Decreased breath sounds present. Abdominal: General: Bowel sounds are normal. There is distension. Palpations: Abdomen is soft. Abdomen is not rigid. Tenderness: There is no abdominal tenderness. Genitourinary: Comments: Newman to straight drain Skin: General: Skin is warm and dry. Capillary Refill: Capillary refill takes less than 2 seconds. Neurological: Mental Status: He is alert. Assessment/Plan Patient Active Problem List Diagnosis Code Hypertension I10 Hyperlipidemia E78.5 Chronic kidney disease N18.9 GERD (gastroesophageal reflux disease) K21.9 Coronary artery disease involving [place] coronary artery of [place] heart with angina pectoris ([facility])I25.119 CAD in [place] artery I25.10 S/P CABG (coronary artery bypass graft) Z95.1 Stress hyperglycemia R73.9 Postoperative anemia due to acute blood loss D62 Consumptive coagulopathy ([facility]) D65 Paroxysmal atrial fibrillation ([facility]) I48.0 CAD/HTN/HLD s/p CABGx3 ROTHMAN-LAD, SVG to RCA, SVG to Diag; left leg EVH; s/p take back to OR for bleeding on 03/26 Continue care per orders: Continue amio load-rebolus amio. Vaso off; use levo for BP control as needed. No pacing wires make sure pads at bedside. May consider another dose of dig (500mcg given this morning). Hold PT/OT for now. Leave lines. Vent per [facility]. Cardiac Core Medications: statin, hold ASA, BB, and ACEi/ARB- on pressors; bleeding; Blood Conservation: 03/26: multiple blood products intraop/post op due to bleeding. DVT prophylaxis: TEDs and SCDs POAF Likely related to surgery no prior history; not on BB due to vaso active drip requirements; amio load + bolus x2; dig (500mcg) also given. Post Operative Pulmonary Management Acute Post-Operative Respiratory Insufficiency:-labile hemodynamics/remained on vent post surgery. Vent per CCM. On minimal settings. Once hemodynamics improve work to extubate. CCM:consulted-managing Maintain SpO2 >92% Stress hyperglycemia Insulin per endo CKD stage III Baseline SCr ~1.4; GFR ~54; current SCr 1.19; adequate UO. On levo vaso; maintain higher BPs- MAPs greater than 65 ok for SBP ~130s. Avoid nephrotoxic agents. Acute blood loss anemia/consumptive coagulopathy Multiple transfusions intraop and post op; likely related to surgery and plavix. Hgb stable continue to monito.r Will discuss with CT surgeron Disclaimer ? INFORMED CONSENT:The nature and purpose of the proposed treatment or procedure have been discussed. The risks and benefits of the proposed treatment or procedures have been reviewed. Alternatives have been reviewed in addition to the risks and benefits of not receiving treatments or undergoing procedures. Pursuant to this discussion, the patient agrees to undergo the proposed treatment or procedure. ? Captured images seen in this note from are not a substitute for a comprehensive interpretation ofthe entire data set as reflected by the interpreting physician with regard to radiology, echocardiography, and other diagnostic images. ? This note may have been dictated using [employer] Practice Edition 2.6 and/or [employer] Voice Recognition Feature. The document was proofread, however unrecognized voice recognition material handling technician errors may be present. * Nguyen Hernandez RN - 03/28/2020 4:55 AM EDT 0435: Pt flipped into Afib RVR with rate in the 170-180's. Dr. Khalil at bedside. Pt given 500mcg of Digoxin IV push, amiodarone bolus mixed and given per order, Amiodarone drip then started per order. Pt BP remained stable during this time with MAP greater than 65. 0500: Pt HR now in the 120-130's. BP still stable. 0530: Julio Armendariz NP at bedside, okay to shut off vasopressin and use levophed for blood pressure control. Will continue to monitor. * Kayleigh Chambers RCP - 03/27/2020 10:46 PM EDT Pt refusing to wear his home cpap at this time * Priscila Brown APRN - CNP - 03/27/2020 2:52 PM EDT Department of Internal Medicine Division of Endocrinology, Diabetes, & Metabolism Endocrinology Progress Note Patient Name: Karen Kearns : 1940 AGE: 79 y.o. Admission Date: 03/21/2020 8:07 PM Date of Initial Consult: 03/26/20 Reason for Endocrine Consult: post op management Provider/Team Requesting Consult: Dr Miller PCP: KEVYN SIM MD Outpt Supervisor Warping Department: no ASSESSMENT: Stress hyperglycemia S/P CABG x3 PLAN: Maintain insulin drip due to patient status and continuation of pressors ANTICIPATED ENDOCRINE HOME GOING RECOMMENDATIONS: Optimized for Discharge from Endocrine standpoint: No Home Going Endocrine Rx Recommendations-- No medication is anticipated at this time, will continue to follow and make reccomendations Outpt Follow Up Endocrine Testing-- N/a Appointment request sent to Endo office Staff: No Endocrine Team Contact(s): Supervisor Warping Department On-Call: John Preferred Method of Communication/Reaching: VivienSeresme. The above physician should be paged w/ questions/concerns about items being managed by Endocrinology Team. We appreciate the opportunity to participate in this pt's ongoing medical care. SUBJECTIVE/HPI: CHIEF COMPLAINT: No chief complaint on file. Type of DM: 0 Onset of DM: patient is not diabetic Home DM Medication Regimen (reported by pt): none Cardiac Procedure: CABG Procedure Date: 03/26/2020 Insulin Drip Rate: 2 units/hr. 12 hour total ~57.5 units Insulin Drip DC Date: Patient remains intubated and sedated post CABG x3 Per chart review and discussion with nursing Patient is hypotensive on levophed. Becomes agitated easily. 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 Appearance: Normal appearance. He is normal weight. He is ill-appearing. He is not toxic-appearing or diaphoretic. Comments: Intubated sedated elderly male HENT: Head: Normocephalic and atraumatic. Right Ear: External ear normal. Left Ear: External ear normal. Mouth/Throat: Mouth: Mucous membranes are moist. Cardiovascular: Rate and Rhythm: Normal rate and regular rhythm. Pulses: Normal pulses. Heart sounds: Normal heart sounds. Pulmonary: Effort: Pulmonary effort is normal. No respiratory distress. Breath sounds: Normal breath sounds. Comments: Chest tube x3 Abdominal: General: Bowel sounds are normal. Palpations: Abdomen is soft. Genitourinary: Comments: Voiding via newman Musculoskeletal: General: Swelling (generalized) present. Skin: General: Skin is warm and dry. 24 hour intake/output: Intake/Output Summary (Last 24 hours) at 03/27/2020 1452 Last data filed at 03/27/2020 1208 Gross per 24 hour Intake 9357.83 ml Output 2686 ml Net 6671.83 ml Medications (as per EMR): HomeMeds: Prior to Admission medications Medication Sig Start Date End Date Taking? Authorizing Provider pantoprazole (PROTONIX) 40 MG tablet Take 40 mg by mouth daily Yes Historical Provider, aspirin 81 MG EC tablet Take 81 mg by mouth daily Yes Historical Provider, ramipril (ALTACE) 10 MG capsule Take 10 mg by mouth daily Yes Historical Provider, clopidogrel (PLAVIX) 75 MG tablet Take 75 mg by mouth daily Yes Historical Provider, Scheduled Meds: sodium chloride flush 10 mL Intravenous 2 times per day ceFAZolin (ANCEF) IVPB 2 g Intravenous Q8H acetaminophen 1,000 mg Oral Q8H polyethylene glycol 17 g Oral Daily sennosides-docusate sodium 2 tablet Oral Nightly pantoprazole 40 mg Intravenous Daily And sodium chloride (PF) 10 mL Intravenous Daily chlorhexidine 15 mL Mouth/Throat BID mupirocin Nasal BID atorvastatin 80 mg Oral Nightly [Held by provider] aspirin 81 mg Oral Daily sodium chloride 20 mL Intravenous Once Continuous Infusions: lactated ringers 75 mL/hr at 03/27/20 1208 sodium chloride 20 mL/hr at 03/26/20 1300 insulin 2 Units/hr (03/27/20 1301) dextrose norepinephrine 0.06 mcg/kg/min (03/27/20 1323) niCARdipine fentaNYL 150 mcg/hr (03/27/20 1342) vasopressin (Septic Shock) infusion 0.02 Units/min (03/27/20 0844) midazolam 4 mg/hr (03/27/20 1342) EPINEPHrine infusion 0.1 mcg/kg/min (03/27/20 0036) PRN Meds:perflutren lipid microspheres, sodium chloride flush, sodium chloride flush, potassium chloride, magnesium sulfate, calcium gluconate, morphine OR morphine, ondansetron, potassium chloride, albumin human, sodium chloride, glucose, dextrose, glucagon (rDNA), dextrose, niCARdipine, insulin regular, oxyCODONE OR oxyCODONE Diagnostic Workup: I reviewed Laboratory results, Radiographic results, Other Team Notes at the time oftoday's encounter. BMP: Recent Labs 03/27/20 0013 03/27/20 0544 03/27/20 0933 NA 139 140 139 K 3.9 4.1 3.9 CL 110* 110* 107 CO2 15* 21* 23 BUN 32* 34* 34* CREATININE 1.44* 1.45* 1.35* GLUCOSE 180* 126* 95 Glucose: Recent Labs 03/27/20 0802 03/27/20 0855 03/27/20 0957 03/27/20 1055 03/27/20 1151 03/27/20 1225 03/27/20 1301 03/27/20 1350 POCGLU 92 104* 93 75 66* 85 102* 110* HgbA1C: Recent Labs 03/25/20 1055 LABA1C 5.4 Hepatic: Recent Labs 03/26/20 1622 ALKPHOS 30* ALT 10 AST 25 PROT 5.6* BILITOT 1.3 LABALBU 3.8 Lipids: No results for input(s): CHOL, TRIG, HDL, LDLCALC in the last 72 hours. Invalid input(s): LDL Radiology reportsas per the Radiologist Radiology: No results found. History/Other: Past Medical History: Diagnosis Date Chronic kidney disease Diverticulosis of colon 10/19/2006 GERD (gastroesophageal reflux disease) Hyperlipidemia Hypertension Internal hemorrhoids 03/22/2020 Past Surgical History: Procedure Laterality Date HERNIA REPAIR ROTATOR CUFF REPAIR Right Current Medications: Current Facility-Administered Medications: perflutren lipid microspheres (DEFINITY) injection 1.65 mg, 1.5 mL, Intravenous, ONCE PRN sodium chloride flush 0.9 % injection 10 mL, 10 mL, Intravenous, PRN lactated ringers infusion, , Intravenous, Continuous 0.45 % sodium chloride infusion, , Intravenous, Continuous sodium chloride flush 0.9 % injection 10 mL, 10 mL, Intravenous, 2 times per day sodium chloride flush 0.9 % injection 10 mL, 10 mL, Intravenous, PRN potassium chloride 20 mEq/50 mL IVPB (Central Line), 20 mEq, Intravenous, PRN magnesium sulfate 2 g in 50 mL IVPB premix, 2 g, Intravenous, PRN calcium gluconate 2 g in dextrose 5 % 100 mL IVPB, 2 g, Intravenous, PRN ceFAZolin (ANCEF) 2 g in dextrose 4 % 100 mL IVPB (premix), 2 g, Intravenous, Q8H acetaminophen (TYLENOL) tablet 1,000 mg, 1,000 mg, Oral, Q8H morphine (PF) injection 2 mg, 2 mg, Intravenous, Q2H PRN OR morphine (PF) injection 4 mg, 4 mg,Intravenous, Q2H PRN polyethylene glycol (GLYCOLAX) packet 17 g, 17 g, Oral, Daily sennosides-docusate sodium (SENOKOT-S) 8.6-50 MG tablet 2 tablet, 2 tablet, Oral, Nightly ondansetron (ZOFRAN) injection 4 mg, 4 mg, Intravenous, Q8H PRN pantoprazole (PROTONIX) injection 40 mg, 40 mg, Intravenous, Daily AND sodium chloride (PF) 0.9% injection 10 mL, 10 mL, Intravenous, Daily chlorhexidine (PERIDEX) 0.12 % solution 15 mL, 15 mL, Mouth/Throat, BID mupirocin (BACTROBAN) 2 % ointment, , Nasal, BID potassium chloride (KLOR-CON M) extended release tablet 20 mEq, 20 mEq, Oral, PRN atorvastatin (LIPITOR) tablet 80 mg, 80 mg, Oral, Nightly [Held by provider] aspirin EC tablet 81 mg, 81 mg, Oral, Daily albumin human 25 % IV solution 25 g, 25 g, Intravenous, PRN 0.9 % sodium chloride bolus, 250 mL, Intravenous, PRN insulin regular (MYXREDLIN) 100 units in sodium chloride 0.9 % 100 ml infusion, 1 Units/hr, Intravenous, Continuous glucose (GLUTOSE) 40 % oral gel 15 g, 15 g, Oral, PRN dextrose 50 % IV solution, 12.5 g, Intravenous, PRN glucagon (rDNA) injection 1 mg, 1 mg, Intramuscular, PRN dextrose 5 % solution, 100 mL/hr, Intravenous, PRN norepinephrine (LEVOPHED) 16 mg in sodium chloride 0.9 % 250 mL infusion, 0.03 mcg/kg/min, Intravenous, Continuous niCARdipine (CARDENE) 25 mg in sodium chloride 0.9 % 250 mL infusion, 5 mg/hr, Intravenous, Continuous PRN insulin regular (HUMULIN R;NOVOLIN R) injection 4 Units, 4 Units, Intravenous, PRN oxyCODONE (ROXICODONE) immediate release tablet 5 mg, 5 mg, Oral, Q4H PRN OR oxyCODONE (ROXICODONE) immediate release tablet 10 mg, 10 mg, Oral, Q4H PRN fentanyl (SUBLIMAZE) 1,000 mcg in sodium chloride 0.9% 100 mL infusion, 100 mcg/hr, Intravenous, Continuous vasopressin 20 Units in dextrose 5 % 100 mL infusion, 0.02 Units/min, Intravenous, Continuous midazolam (VERSED) 100 mg in dextrose 5 % 100 mL infusion, 2 mg/hr, Intravenous, Continuous EPINEPHrine (EPINEPHrine HCL) 5 mg in dextrose 5 % 250 mL infusion, 0.1 mcg/kg/min, Intravenous, Continuous 0.9 % sodium chloride bolus, 20 mL, Intravenous, Once Allergy(ies): No Known Allergies Family History: Problem Relation Age of Onset Cancer Mother Social History: Reviewed in EMR and H&P and updated if appropriate. I spent 20 minutes with the pt which involved more than 51% of the time in coordination of care, medical evaluation, review of records, and/or counseling of the pt regarding her condition/disease state/prognosis on the date of this note. Associated attestation - Rani Lopez MD - 03/27/2020 5:32 PM EDT I performed a history and physical examination of the patient and discussed the management with theNP/resident. I reviewed the patient's chart including pertinent history, medications, labs, radiology, and other reports. I reviewed the FUNERAL SERVICE APPRENTICE/resident's note and agree with the documented findings and plan of care (with summary/modifications noted if any). Patient remains critically ill. He is on multiple pressors. Still intubated and sedated. No nutrition. Blood glucose levels stable on insulin 2.5 units per hour BP (!) 124/56 Pulse 84 Temp 99.3 F (37.4 C) (Core) Resp 18 Ht 5' 10 (1.778 m) Wt 182 lb 14.4 oz (83 kg) SpO2 99% BMI 26.24 kg/m Intubated/sedated, not in distress, RRR, chest incision dressed, +chest tubes, no edema, LLE wrapped. Dx: Stress hyperglycemia CAD s/p CABG Hypotension/anemia Plan: - will continue insulin infusion per protocol for now given critical illness and multiple pressor use - will transition to subcutaneous insulin once more stable - continue blood glucose monitoring - counseling limited due to pt status - patient unlikely require any pharmacotherapy on discharge for hyperglycemia - will follow Time spent with patient over 51% total time 10 minutes which includes review of records, counseling, management, and coordination of care as documented in note. * Randall Gamino PT - 03/27/2020 10:42 AM EDT Physical Therapy Facility/Department: [facility] Physical Therapy Evaluation and Treatment Order Received. Pt is still intubated and sedated on pressors. Will hold and continue to follow Randall Gamino PT * Bijal Chou MD - 03/27/2020 8:20 AM EDT Critical Care Progress Note 03/27/2020 8:24 AM Subjective: Admit Date: 03/21/2020 PCP: KEVYN SIM MD No chief complaint on file. Interval History: - POD1 CABGx3 - hypotensive post-op, arrived to [facility] on levo, had significant bleeding from chest tubes with PRBC and product replacement (see my note from yesterday afternoon) - yesterday evening he had ongoing bleeding so was taken back to OR for evacuation of hemopericardium and hemothorax. Potential bleeding site = mediastinal arterial vessel adipose tissue (+ generalized) as all grafts and cannulation sites hemostatic per brief op note from Dr. Vallecillo. - post-op he was put on epi gtt in addition to levo, with significant improvement in his hemodynamics/CI - additional blood products and factor replacement per overnight ICU team, see flowsheets for details - HCO3 gtt started for persistent metabolic acidosis which also improved his BP per report - bleeding has significantly decreased over the past few hours this morning and pressor requirementslowly coming down - he remains sedated on fentanyl and versed gtts and on minimal vent settings Review of Systems Diet: Diet NPO Effective Now Exceptions are: Other (See Comment) Medications: Scheduled Meds: sodium chloride flush 10 mL Intravenous 2 times per day ceFAZolin (ANCEF) IVPB 2 g Intravenous Q8H acetaminophen 1,000 mg Oral Q8H polyethylene glycol 17 g Oral Daily sennosides-docusate sodium 2 tablet Oral Nightly pantoprazole 40 mg Intravenous Daily And sodium chloride (PF) 10 mL Intravenous Daily chlorhexidine 15 mL Mouth/Throat BID mupirocin Nasal BID atorvastatin 80 mg Oral Nightly aspirin 81 mg Oral Daily albumin human sodium chloride 20 mL Intravenous Once sodium chloride 20 mL Intravenous Once Continuous Infusions: sodium bicarbonate in sterile water infusion 150 mL/hr at 03/27/20 0324 sodium chloride 20 mL/hr at 03/26/20 1300 insulin 6.5 Units/hr (03/27/20 0800) dextrose norepinephrine 0.18 mcg/kg/min (03/27/20 0823) niCARdipine fentaNYL 100 mcg/hr (03/27/20 0521) vasopressin (Septic Shock) infusion 0.02 Units/min (03/27/20 0130) midazolam 2 mg/hr (03/27/20 0304) EPINEPHrine infusion 0.1 mcg/kg/min (03/27/20 0036) Objective: Vitals: Temp (24hrs), Av.8 F (36 C), Min:95 F (35 C), Max:99.9 F (37.7 C) BP 122/63 Pulse 91 Temp 99.9 F (37.7 C) (Core) Resp 18 Ht 5' 10 (1.778 m) Wt 182 lb 14.4oz (83 kg) SpO2 100% BMI 26.24 kg/m I/O: 03/26 07 - 03/27 700 In: 8275.8 [I.V.:6749] Out: 3071 [Urine:678] CVP: CVP (Mean): 11 mmHg Invasive Lines: - SGC 03/26/20 - ETT 03/26/20 - chest tubes x4 03/26/20 - L radial art line 03/26/20 Ventilator Settings: Vent Mode: AC/VC+ Rate Set: 18 bmp Vt Ordered: 500 mL Pressure Support: 0 cmH20 PEEP/CPAP: 8 FiO2 : 30 % PHYSICAL EXAM: General Appearance: [x]WDWN []Obese []Cachectic []Thin []ill Skin: Temperature [x]Warm []Cool / Rash []Yes [x]No / Tattoo(s) []Yes [x]No Heent: Pupils round and react []Yes []No Sclera []Icteric [x]Non-Icteric Conjunctiva []Injected [x]Non-Injected / Pinnae [x]Normal []Other/ Dentitian [][place] Teeth []Dentures Oral Mucosa []Iron Belt [x]Moist []Dry/ Oral ETT [x]Present []Absent Neck: Trachea midline [x]Yes []No/ Thyromegaly []Yes []No/ Crepitus []Present [x]Absent /Jvd []Present []Absent Lungs: []Clear [x]Crackles []Wheezes []Rhonchi / Respiratory effort []Labored [x]Non-Labored Heart: [x]ST []Irregularly Irregular []murmur present []murmur absent/ Peripheral Edema [x]Absent []Present Abdomen: [x]Soft Bowel Sounds []Present []Absent []Diminished []Hyperactive []Hypoactive []Tender []Non-Tender []Distended [x]Non-distended / Hernia []Present []Absent / Organomegaly [x]Absent []Present/ []Scar Extremities: Cyanosis []Present [x]Absent/ CARDOZA ([]RUE []RLE []LUE []LLE) Neurologic: EGEGIK []Yes []No Corneal reflexes []Present []Absent / Plantar reflexes []Up []Down []Absent / Withdraws to tactile [x]Yes []No/ Follows Commands []Yes [x]No []Unresponsive to verbal Psych: Alert []yes [x]no Oriented []x0 []x1 []x2 []x3 / Affect []Normal []Flat []Aggitated []Calm [x]Sedated []NAD Labs: BMP: Recent Labs 03/26/20 2135 03/27/201203/27/20 0544 NA 137 139 140 K 4.3 3.9 4.1 CL 111* 110* 110* CO2 21* 15* 21* BUN 32* 32* 34* CREATININE 1.26* 1.44* 1.45* GLUCOSE 116* 180* 126* . Ionized Calcium: Lab Results Component Value Date IONCA 4.10 03/27/2020 IONCA 4.20 03/27/2020 Hepatic: Recent Labs 03/26/20 1400 03/26/20 1622 AST 25 25 ALT 11 10 BILITOT 1.1 1.3 ALKPHOS 35* 30* Troponin: No results for input(s): TROPONINI in the last 72 hours. Lactate: Lab Results Component Value Date LACTA 3.9 03/27/2020 LACTA 4.4 03/27/2020 LACTA 2.0 03/26/2020 ABG: Recent Labs 03/27/201203/27/20 0544 PH 7.23* 7.37 CBC: Recent Labs 03/27/201203/27/20 0544 WBC 11.9* 14.6* HGB 8.8* 8.1* PLT 158 171 CK: No results for input(s): CKTOTAL in the last 72 hours. BNP: No results for input(s): BNP in the last 72 hours. INR: Recent Labs 03/27/20 0013 03/27/20 0544 INR 1.2* 1.2* CORTISOL: Recent Labs 03/27/20 0013 CORTISOL 27.0 TSH: No results for input(s): TSH in the last 72 hours. PROCALCITONIN: No results for input(s): PROCAL in the last 72 hours. LIPIDS: No results for input(s): CHOL, HDL in the last 72 hours. Invalid input(s): LDLCALCU UA: Recent Labs 03/25/20 1636 COLORU Light-Yellow LEUKOCYTESUR Negative UROBILINOGEN Normal BILIRUBINUR Negative GLUCOSEU Normal Cultures: No results for input(s): LABURIN in the last 72 hours. No results for input(s): BC in the last 72 hours. No results for input(s): BLOODCULT2 in the last 72 hours. No results for input(s): CULTRESP in the last 72 hours. No results for input(s): CXCATHTIP in the last 72 hours. No results for input(s): LEGUR in the last 72 hours. Invalid input(s): STREPPNEUMAGU No results for input(s): LABGRAM in the last 72 hours. Films: CXR portable: Results for orders placed during the hospital encounter of 03/21/20 XR CHEST PORTABLE Narrative Patient Name: KAREN KEARNS ---Diagnostic Radiology--- Exam Date/Time 03/26/2020 21:10:12 EDT Exam CR Chest Portable Ordering Physician ANGELY MELTON Accession Number [id number] CPT4 Codes 97539 () Reason For Exam post operative Report SINGLE FRONTAL VIEW OF THE CHEST CLINICAL INDICATION: post operative TECHNIQUE: Single frontal view of the chest COMPARISON: 03/26/2020 FINDINGS: Endotracheal tube tip 6.1 cm above the bert. Blair-Dhaval catheter tip is in the proximal right pulmonary artery. NG tube tip is not included on the study but is at least as far distal as the gastric fundus. No pneumothorax seen. There appear to be mediastinal drains there is extensive overlapping tubing in wiring. Left chest tube terminates apically. No definite pneumothorax seen. Mild right basilar atelectasis or infiltrate. Left lung is small compared to the right, similar to yesterday's study. IMPRESSION: 1. Tubes and lines as described. Right basilar atelectasis or infiltrate. 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 - hemorrhagic shock - acute blood loss anemia - consumptive coagulopathy - ASHLEIGH on CKD - NAGMA 2/2 above - lactic acidosis 2/2 hemorrhagic shock - HTN - HPL - GERD Plan: - wean levo off first, then will titrate epi down slowly (CI and BP much more responsive to epi overnight) - agree w/CTS re: giving one additional unit PRBCs this AM - continue to trend serial labs q4h including: BMP, CBC, coags, fibrinogen, ionized calcium, lactate, Mg, Phos - lactate trending down slowly this AM - monitor UOP and SCr w/ASHLEIGH on CKD, avoid hypotensive episodes, wean pressors as soon as able, avoid additional nephrotoxins - hold ASA this AM - continue to monitor chest tube output rate - will defer SBT until stable on single pressor, remains on minimal vent settings for support - NAGMA improving and pH normalized on HCO3 gtt: decrease HCO3 gtt rate, f/u next BMP, transition back to LR MIVF once serum bicarb normalized (and pH remains WNL) - on periop ancef: check procal, consider leukocytosis likely reactive will f/u trends on serial labs, consider broadening abx coverage if fevers Prophylaxis: Stress ulcer: [x] PPI Agent [] H2RA [] Sucralfate [] Other: VTE: [] Enoxaparin [] SC Heparin [x] SCD Full Code Excluding procedures, the total critical care time caring for this patient with life threatening, unstable organ failure, including direct patient contact, review of medical record, management of life support systems, review of data including imaging and labs, discussions with other team members, patient's family and physicians at least 35 min minutes so far today. * Julee John, OT - 03/27/2020 7:28 AM EDT Occupational Therapy OT Hold Note OT eval and treat orders received. Pt still intubated and sedated along with pressors after CABG on03/26/20. Will hold OT eval until medically ready for therapy. Julee John OTR/L * Paul Lacey, STAPLE CUTTER - BAG TURNER - 03/27/2020 6:01 AM EDT Cardiothoracic Surgery Progress Note PATIENT NAME: Karen Kearns : 1940 (79 y.o.) TODAY'S DATE: 03/27/2020 Interval History: 03/26 CABG 3V 03/26 Wash out / explore 03/26 - transfusion post OP 2 units - 3rd unit today 03-27-2020 POD #1 - pt still intubated and sedated - on pressors for support - was taken back for explore and wash out - CXR today unchanged - HGB 8.1 this AM - WBC reactive - lactic acid 4.4 - ordering a stat echo - ordering x1 unit PRBC tranfuse over 4 hours - Index 2.2 today - will continue tomonitor and take a slow approach to weaning pressors, vent and swan Blair numbers Vent settings Last recorded/verified vitals in [facility] Temp: 99.9 F (37.7 C) Pulse: 99 BP: 128/63 Resp: 18 SpO2: 100 % Recent Labs 03/26/20193103/26/20 2135 03/26/20 2355 03/27/20 0013 WBC 11.1* 6.8 -- 11.9* HGB 7.5* 7.5* 8.5* 8.8* PLT 124* 91* -- 158 INR 1.3* 1.3* -- 1.2* NA 140 137 -- 139 K 4.3 4.3 -- 3.9 CREATININE 1.33* 1.26* -- 1.44* CXR Lines RIJ swan - No pacer Drips EPI - Levo - vaso - prop - fentanyl I&O + [address] output - 2,981ml [x] Current Medications, pmHx, Allergies, and sHx reviewed and updated as appropriate Review of Systems Unable to perform ROS: Intubated Physical Exam Vitals signs reviewed. Constitutional: General: He is not in acute distress. Appearance: Normal appearance. He is well-developed. He is not diaphoretic. HENT: Head: Normocephalic and atraumatic. Mouth/Throat: Pharynx: No oropharyngeal exudate. Eyes: General: No scleral icterus. Right eye: No discharge. Left eye: No discharge. Pupils: Pupils are equal, round, and reactive to light. Neck: Musculoskeletal: Normal range of motion. Thyroid: No thyromegaly. Vascular: No JVD. Cardiovascular: Rate and Rhythm: Normal rate and regular rhythm. Chest Wall: PMI is not displaced. Pulses: Normal pulses. Heart sounds: Normal heart sounds. No murmur. No gallop. Pulmonary: Effort: No accessory muscle usage or respiratory distress. Breath sounds: Normal breath sounds. No wheezing or rales. Abdominal: General: Bowel sounds are normal. There is no distension or abdominal bruit. Palpations: Abdomen is soft. There is no shifting dullness or hepatomegaly. Tenderness: There is no abdominal tenderness. Musculoskeletal: Normal range of motion. General: No deformity. Skin: General: Skin is warm and dry. Findings: No rash. Neurological: Mental Status: He is alert and oriented to person, place, and time. Cranial Nerves: No cranial nerve deficit. Sensory: No sensory deficit. Psychiatric: Thought Content: Thought content normal. Assessment/Plan Patient Active Problem List Diagnosis Code Hypertension I10 Hyperlipidemia E78.5 Chronic kidney disease N18.9 GERD (gastroesophageal reflux disease) K21.9 Coronary artery disease involving [place] coronary artery of [place] heart with angina pectoris (HCC)I25.119 CAD in [place] artery I25.10 S/P CABG (coronary artery bypass graft) Z95.1 Stress hyperglycemia R73.9 CAD - S/P CABG x 3 vessel - taken back late last night for clean out - EF 65% Continue care per orders: Pressors - fluid as needed - blood products and electrolyte replacement today Cardiac Core Medications: ASA and Statin Blood Conservation: 3 units 03-26-2020. DVT prophylaxis: TEDs, SCDs and no hepatring for now due to bleeding Post Operative Pulmonary Management Remains Intubated and sedated Normal Post-Operative Course CCM:consulted-managing Maintain SpO2 >92% Stress hyperglycemia Insulin per endo Amemia Post Op - as above blood products, cryo, FFP given - will check labs Q 6 treat as indicated - pt was on day 5 of Plavix washout in 79 year old male with CKD HTN - On pressors HLD - on statin CKD - continue to monitor GI prophy - PPI Disclaimer ? INFORMED CONSENT:The nature and purpose of the proposed treatment or procedure have been discussed. The risks and benefits of the proposed treatment or procedures have been reviewed. Alternatives have been reviewed in addition to the risks and benefits of not receiving treatments or undergoing procedures. Pursuant to this discussion, the patient agrees to undergo the proposed treatment or procedure. ? Captured images seen in this note from are not a substitute for a comprehensive interpretation ofthe entire data set as reflected by the interpreting physician with regard to radiology, echocardiography, and other diagnostic images. ? This note may have been dictated using [employer] Practice Edition 2.6 and/or [employer] Voice Recognition Feature. The document was proofread, however unrecognized voice recognition material handling technician errors may be present. * Nguyen Hernandez RN - 03/26/2020 11:13 PM EDT 2039: Pt arrived from OR with several OR staff, Grace Shen at bedside giving verbal orders on rapidtitration of medication until 2129. 2041: Pt Arterial line connected to monitor, with accurate waveform, pt BP 33/19 with a MAP of 25. OR staff member administered unknown amount of vasopressor. Within 5 minutes pt BP was 201/91 MAP 135. Pt also on levophed and vasopressin at this time. 2044: BP began to decrease, increased Levophed and vasopressin. 2053: Pt having very labile pressures, paused levophed and vasopressin, within 5 min both were restarted. Dr. Khalil and Dr. Snow at bedside per Dr. Vallecillo. Pt relatively stable at this time. 2236: Paged Dr. Khalil for continued fluctuating BP, increased HR, increased chest tube output, at bedside, given orders. See eMAR and flowsheet charting. 0147: Paged Dr. Khalil about titration of vasopressin and sedation. Okay to start weaning sedation.Stay at 0.2mcg/kg/min vasopressin, 0.1 mcg/kg/min epinephrine, may titrate levophed. 0300: Pt lactic acid increased from 2.2 to 4.5, Dr. Simran calvin, cardiac numbers performed at thistime. CO: 4.05, CI 2.01, SVR 1165, CVP 9. 1 amp Bicarb administered, and sodium bicarb drip initiated. BP improved significantly, with a MAP greater than 65. * Angely Vallecillo MD - 03/26/2020 5:56 PM EDT Cardiothoracic surgery Post 3 V CABG today. Chest tube output, about 500 ml in first hour, then 500 ml total over 4 hours NE doses escalating, now at .3mcg/kg/min with vaso at .04 U Transfused 2uPRBC, 2 plts, 1 cryo, 1 FFP, 1 L LR, 100 g albumin Administered 50 g protamine sulfate Hgb down from 10 post op to 5.7 last check CXR with left effusion and mediastinum dimension measuring wider than immediately post op Given concerns for post op bleeding, will return to OR for chest exploration and washout Angely Vallecillo MD Cardiothoracic Surgery * Bijal Chou MD - 03/26/2020 4:54 PM EDT Pt noted to have increased bleeding from chest tubes and ongoing pressor requirement, discussed with CTS at bedside. Repeat Hgb 5.7 from 9.0 - ordered cryo for fibrinogen 155 in setting of increased bleeding and hypotension - agree w/giving additional 2U PRBCs, platelets, and protamine per CTS - will place order for additional 2 units PRBCs on hold - INR up slightly at 1.4 will give 1 U FFP - monitor ionized calcium with significant blood product replacement - serial labs q4h: CBC, BMP, iCa, ABG, fibrinogen, coags - transitioned sedation from propofol to fentanyl + versed - increased VTe for compensation of slight metabolic acidosis (NAGMA) on ABG - slightly worsening SCr w/hx CKD and NAGMA: trending BMP q4h, suggest bicarb gtt if NAGMA and renal function continue worsening, maintain MAP, weaning pressors as able - will leave sedated on [facility] vent support pending improvement in hemodynamics and bleeding * Paul Lacey, STAPLE CUTTER - BAG TURNER - 03/25/2020 10:22 AM EDT Cardiothoracic Surgery Progress Note PATIENT NAME: Karen Kearns : 1940 (79 y.o.) TODAY'S DATE: 03/25/2020 Interval History: 03/21: Transfer from [facility]->CABG eval. Last dose Plavix 03/2103-25-20 - doing well overnight no changes - plan for CABG Thursday - pre-op orders placed Echo showed no valve disease EF 71% Temp: 97.8 F (36.6 C) Pulse: 56 BP: (!) 141/70 Resp: 16 SpO2: 98 % Recent Labs 03/23/20 0439 WBC 6.9 HGB 13.3 PLT 121* NA 140 K 4.4 CREATININE 1.15 Stress Test 03/07: from outside facility Abnormal; area of stress-induced myocardial ischemia in portions of the distal anterior and apical segments; LVEF-63% TTE 03/07: from outside facility LV-EF 65% no RWA; RV-normal systolic function; Atria-mildy enlarged; MV- mild 1+ MR; TV-trivial insufficiency; AV-trileaflet, mild focal av calcifications Cath 03/21: from outside facility ([place]-Dr. Maher) Right dominant, LAD- prox eccentric 75% stenosis, 95% stenosis; LCx-mild calcification; RCA-prox 95% stenosis, mid RCA occluded, distal fills from left to right collateral flow [x] Current Medications, pmHx, Allergies, and sHx reviewed and updated as appropriate Review of Systems Constitutional: Negative for chills, diaphoresis and fever. HENT: Negative for nosebleeds. Eyes: Negative for visual disturbance. Respiratory: Negative for cough, shortness of breath and wheezing. Cardiovascular: Negative for chest pain, palpitations and leg swelling. Gastrointestinal: Negative for abdominal pain, blood in stool, constipation, diarrhea, nausea and vomiting. Genitourinary: Negative for hematuria. Musculoskeletal: Negative for myalgias. Skin: Negative for rash. Neurological: Negative for dizziness and syncope. Hematological: Does not bruise/bleed easily. Psychiatric/Behavioral: Negative for dysphoric mood and suicidal ideas. Denies Depression Physical Exam Vitals signs reviewed. Constitutional: General: He is not in acute distress. Appearance: Normal appearance. He is well-developed. He is not diaphoretic. HENT: Head: Normocephalic and atraumatic. Mouth/Throat: Pharynx: No oropharyngeal exudate. Eyes: General: No scleral icterus. Right eye: No discharge. Left eye: No discharge. Pupils: Pupils are equal, round, and reactive to light. Neck: Musculoskeletal: Normal range of motion. Thyroid: No thyromegaly. Vascular: No JVD. Cardiovascular: Rate and Rhythm: Normal rate and regular rhythm. Chest Wall: PMI is not displaced. Pulses: Normal pulses. Heart sounds: Normal heart sounds. No murmur. No gallop. Pulmonary: Effort: No accessory muscle usage or respiratory distress. Breath sounds: Normal breath sounds. No wheezing or rales. Abdominal: General: Bowel sounds are normal. There is no distension or abdominal bruit. Palpations: Abdomen is soft. There is no shifting dullness or hepatomegaly. Tenderness: There is no abdominal tenderness. Musculoskeletal: Normal range of motion. General: No deformity. Skin: General: Skin is warm and dry. Findings: No rash. Neurological: Mental Status: He is alert and oriented to person, place, and time. Cranial Nerves: No cranial nerve deficit. Sensory: No sensory deficit. Psychiatric: Thought Content: Thought content normal. Assessment/Plan Patient Active Problem List Diagnosis Code Hypertension I10 Hyperlipidemia E78.5 Chronic kidney disease N18.9 GERD (gastroesophageal reflux disease) K21.9 Coronary artery disease involving [place] coronary artery of [place] heart with angina pectoris (HCC)I25.119 CAD in [place] artery I25.10 CAD - EF WNL - No Valve disease - plan 2 vessel cabg Thursday HTN - hold lopressor - place on norvasc instead - avoid nephrotoxix drugs HLD - will take high dose statin GERD - on PPI Low platelets - check CBC today and AM of procedure Pre op orders placed call for any needs Disclaimer ? INFORMED CONSENT:The nature and purpose of the proposed treatment or procedure have been discussed. The risks and benefits of the proposed treatment or procedures have been reviewed. Alternatives have been reviewed in addition to the risks and benefits of not receiving treatments or undergoing procedures. Pursuant to this discussion, the patient agrees to undergo the proposed treatment or procedure. ? Captured images seen in this note from are not a substitute for a comprehensive interpretation ofthe entire data set as reflected by the interpreting physician with regard to radiology, echocardiography, and other diagnostic images. ? This note may have been dictated using BTC.sx Practice Edition 2.6 and/or Stemnion Voice Recognition Feature. The document was proofread, however unrecognized voice recognition material handling technician errors may be present. * Paul Lacey APRN - CNP - 03/24/2020 10:16 AM EDT Cardiothoracic Surgery Progress Note PATIENT NAME: Karen Kearns : 1940 (79 y.o.) TODAY'S DATE: 03-24-2020 Interval History: 03/21: Transfer from [facility]->CABG eval. Last dose Plavix 03/2103-24-2020 No issues overnight - pt doing well no new symptoms - pre-op orders placed Last recorded/verified vitals in [facility] Temp: 97.8 F (36.6 C) Pulse: 56 BP: (!) 141/70 Resp: 16 SpO2: 98 % Recent Labs 03/23/20 0439 WBC 6.9 HGB 13.3 PLT 121* NA 140 K 4.4 CREATININE 1.15 [x] Current Medications, pmHx, Allergies, and sHx reviewed and updated as appropriate Review of Systems Constitutional: Negative for chills, diaphoresis and fever. HENT: Negative for nosebleeds. Eyes: Negative for visual disturbance. Respiratory: Negative for cough, shortness of breath and wheezing. Cardiovascular: Negative for chest pain, palpitations and leg swelling. Gastrointestinal: Negative for abdominal pain, blood in stool, constipation, diarrhea, nausea and vomiting. Genitourinary: Negative for hematuria. Musculoskeletal: Negative for myalgias. Skin: Negative for rash. Neurological: Negative for dizziness and syncope. Hematological: Does not bruise/bleed easily. Psychiatric/Behavioral: Negative for dysphoric mood and suicidal ideas. Denies Depression Physical Exam Vitals signs reviewed. Constitutional: General: He is not in acute distress. Appearance: Normal appearance. He is well-developed. He is not diaphoretic. HENT: Head: Normocephalic and atraumatic. Mouth/Throat: Pharynx: No oropharyngeal exudate. Eyes: General: No scleral icterus. Right eye: No discharge. Left eye: No discharge. Pupils: Pupils are equal, round, and reactive to light. Neck: Musculoskeletal: Normal range of motion. Thyroid: No thyromegaly. Vascular: No JVD. Cardiovascular: Rate and Rhythm: Normal rate and regular rhythm. Chest Wall: PMI is not displaced. Pulses: Normal pulses. Heart sounds: Normal heart sounds. No murmur. No gallop. Pulmonary: Effort: No accessory muscle usage or respiratory distress. Breath sounds: Normal breath sounds. No wheezing or rales. Abdominal: General: Bowel sounds are normal. There is no distension or abdominal bruit. Palpations: Abdomen is soft. There is no shifting dullness or hepatomegaly. Tenderness: There is no abdominal tenderness. Musculoskeletal: Normal range of motion. General: No deformity. Skin: General: Skin is warm and dry. Findings: No rash. Neurological: Mental Status: He is alert and oriented to person, place, and time. Cranial Nerves: No cranial nerve deficit. Sensory: No sensory deficit. Psychiatric: Thought Content: Thought content normal. Assessment/Plan Patient Active Problem List Diagnosis Code Hypertension I10 Hyperlipidemia E78.5 Chronic kidney disease N18.9 GERD (gastroesophageal reflux disease) K21.9 Coronary artery disease involving [place] coronary artery of [place] heart with angina pectoris (HCC)I25.119 CAD in [place] artery I25.10 - doing well overnight no new issues - will continue to follow allow wash out of P2Y12 plan CABG onThursday Disclaimer ? INFORMED CONSENT:The nature and purpose of the proposed treatment or procedure have been discussed. The risks and benefits of the proposed treatment or procedures have been reviewed. Alternatives have been reviewed in addition to the risks and benefits of not receiving treatments or undergoing procedures. Pursuant to this discussion, the patient agrees to undergo the proposed treatment or procedure. ? Captured images seen in this note from are not a substitute for a comprehensive interpretation ofthe entire data set as reflected by the interpreting physician with regard to radiology, echocardiography, and other diagnostic images. ? This note may have been dictated using BTC.sx Practice Edition 2.6 and/or Stemnion Voice Recognition Feature. The document was proofread, however unrecognized voice recognition material handling technician errors may be present. * Milagros Murrieta - 03/23/2020 7:05 AM EDT Nutrition rescreen completed. Chart reviewed. Patient to be monitored and followed by the diet fire extinguisher technician. Milagros Murrieta DT * Estela Armendariz APRN - CNP - 03/23/2020 5:34 AM EDT Cardiothoracic Surgery Progress Note PATIENT NAME: Karen Kearns : 1940 (79 y.o.) TODAY'S DATE: 03/23/2020 Interval History: 03/21: Transfer from [facility]->CABG eval. Last dose Plavix 03/21 03/23: VSS on RA. No acute hemodynamic events overnight. Patient was able to sleep most of the night. to be in after 10am. Denies any SOB, chest pain, palpitations. ROS completed below Last recorded/verified vitals in [facility] Temp: 97.7 F (36.5 C) Pulse: 58 BP: 135/76 Resp: 18 SpO2: 93 % Recent Labs 03/22/20 0949 03/23/20 0439 WBC -- 6.9 HGB -- 13.3 PLT -- 121* NA 139 140 K 4.8 4.4 CREATININE 1.17 1.15 I&O +800 plus undocumented voids Home meds - asa (81), ramipril 10mg daily; plavix, pantoprazole EK/8 [x] Current Medications, pmHx, Allergies, and sHx reviewed and updated as appropriate Review of Systems Constitutional: Negative for activity change, diaphoresis, fatigue and fever. Respiratory: Negative for cough, chest tightness and shortness of breath. Cardiovascular: Negative for chest pain, palpitations and leg swelling. Gastrointestinal: Negative for abdominal distention and abdominal pain. Musculoskeletal: Negative for back pain, gait problem and myalgias. Psychiatric/Behavioral: The patient is nervous/anxious. Physical Exam Constitutional: Appearance: Normal appearance. Eyes: General: No scleral icterus. Conjunctiva/sclera: Conjunctivae normal. Pupils: Pupils are equal, round, and reactive to light. Neck: Vascular: No carotid bruit or JVD. Cardiovascular: Rate and Rhythm: Regular rhythm. Bradycardia present. Heart sounds: Normal heart sounds, S1 normal and S2 normal. No murmur. Pulmonary: Effort: Pulmonary effort is normal. Breath sounds: Normal breath sounds. Abdominal: General: Bowel sounds are normal. Palpations: Abdomen is soft. Abdomen is not rigid. Tenderness: There is no abdominal tenderness. Musculoskeletal: Right lower leg: No edema. Left lower leg: No edema. Skin: General: Skin is warm and dry. Capillary Refill: Capillary refill takes less than 2 seconds. Comments: Neurological: Mental Status: He is alert. Assessment/Plan Patient Active Problem List Diagnosis Code Hypertension I10 Hyperlipidemia E78.5 Chronic kidney disease N18.9 GERD (gastroesophageal reflux disease) K21.9 Coronary artery disease involving [place] coronary artery of [place] heart with angina pectoris (HCC)I25.119 CAD in [place] artery I25.10 MVCAD/HTN/HLD Plan CABG 03/26: preoperative testing ordered. Pending vein mapping and TTE. Continue ASA and BB (slight bradycardia with initiation will discuss on rounds). Heparin sq for DVT prophy. CXR ordered for preop evaluation. Surgeon to speak with patient and today. COVID-negative MRSA nasal-negative Lipids-slightly elevated total-initiate statin post surgery [id number] Additional preoperative orders to be placed Thursday night. CKD stage III Daily BMP, baseline Scr ~1.4. avoid hypotensive events. GERD PPI Will discuss with CT surgeon Disclaimer ? INFORMED CONSENT:The nature and purpose of the proposed treatment or procedure have been discussed. The risks and benefits of the proposed treatment or procedures have been reviewed. Alternatives have been reviewed in addition to the risks and benefits of not receiving treatments or undergoing procedures. Pursuant to this discussion, the patient agrees to undergo the proposed treatment or procedure. ? Captured images seen in this note from are not a substitute for a comprehensive interpretation ofthe entire data set as reflected by the interpreting physician with regard to radiology, echocardiography, and other diagnostic images. ? This note may have been dictated using BTC.sx Practice Edition 2.6 and/or Stemnion Voice Recognition Feature. The document was proofread, however unrecognized voice recognition material handling technician errors may be present. 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) Postsurgical aortocoronary bypass status Stress hyperglycemia Other abnormal blood chemistry Postoperative anemia due to acute blood loss Acute posthemorrhagic anemia Consumptive coagulopathy (HCC) Defibrination syndrome Paroxysmal atrial fibrillation (HCC) Atrial fibrillation Hyperbilirubinemia Disorders of bilirubin excretion Postoperative depression Other constipation Severe malnutrition (HCC) Nutritional marasmus Advance Directives No Advanced Directives Records FoundLatest Code Status on File Code Status Date Activated Date Inactivated Comments Full Code 03/26/2020 12:48 PM Full Code 03/22/2020 8:56 AM 03/26/2020 12:48 PM Documents on File Type Date Recorded Patient Nurse Reviewer Expl anation Advance Directive(s) 05/14/2018 10:17 AM Documents on File Type Date Recorded Patient Nurse Reviewer Expl anation Advance Directive(s) 12/10/2021 7:15 AM Advance Directive(s) 12/03/2021 11:11 AM Advance Directive(s) 05/14/2018 10:17 AM Documents on File Type Date Recorded Patient Nurse Reviewer Expl anation Advance Directive(s) 12/10/2021 7:15 AM Advance Directive(s) 12/03/2021 11:11 AM Advance Directive(s) 05/14/2018 10:17 AM Summary Purpose Family History No Family History Records FoundNo Family History Records Found Medications Administered Section Inactive Administered Medications - up to 3 most recent administrations Medication Order MAR Action Action Date Dose Rate Site diphenhydrAMINE 12.5-50 mg injection (BENADRYL) 12.5-50 mg, INTRAVENOUS, DIRECTED, Starting on Thu12/10/21 at 0900, Until Thu12/10/21 at 1259, DOSING DIRECTED BY PHYSICIAN FOR PROCEDURAL SEDATION ONLY, Intraprocedure Given 12/10/2021 8:56 AM EDT 50 mg fentaNYL 50 mcg/mL 25-100 mcg injection (SUBLIMAZE) 25-100 mcg, INTRAVENOUS, DIRECTED, Starting on Thu12/10/21 at 0900, Until Thu12/10/21 at 1259, DOSING DIRECTED BY PHYSICIAN FOR PROCEDURAL SEDATION ONLY, Intraprocedure Given 12/10/2021 8:53 AM EDT 25 mcg Given 12/10/2021 8:50 AM EDT 50 mcg Given 12/10/2021 8:48 AM EDT 25 mcg lactated ringers iv infusion 30 mL/hr, INTRAVENOUS, CONTINUOUS, Starting on Thu12/10/21 at 0800, Until Thu12/10/21 at 0915, Preprocedure New Bag/Syringe/Bottle 12/10/2021 8:00 AM EDT 30 mL/hr 30 mL/hr midazolam (PF) 1-5 mg injection (VERSED) 1-5 mg, INTRAVENOUS, DIRECTED, Starting on Thu12/10/21 at 0900, Until Thu12/10/21 at 1259, DOSING DIRECTED BY PHYSICIAN FOR PROCEDURAL SEDATION ONLY, Intraprocedure Given 12/10/2021 8:53 AM EDT 1 mg Given 12/10/2021 8:50 AM EDT 1 mg Given 12/10/2021 8:48 AM EDT 3 mg Additional Source Comments (unrecognized sect ion and content) No Status Records FoundNo Status Records Found INFORMATION SOURCE (unrecogn ized section and content) DATE CREATED AUTHOR 10/16/2020 [employer] DATE CREATED AUTHOR AUTHOR'S ORGANIZ ATION 04/02/2024 [facility] Source Comments (unrecognize d section and content) In the event this informatio n is protected by the Federal Confidentiality of Alcohol and Drug Abuse Patient Records regulations: The Federal rules restrict any use of the information to criminally investigate or prosecute any alcohol or drug abuse patient.[facility] the event this information is protected by the Federal Confidentiality of Alcohol and Drug Abuse Patient Records regulations: The Federal rules restrict any use of the information to criminally investigate or prosecute any alcohol or drug abuse patient.[facility] the event this information is protected by the Federal Confidentiality of Alcohol and Drug Abuse Patient Records regulations: The Federal rules restrict any use of the information to criminally investigate or prosecute any alcohol or drug abuse patient.[facility] the event this information is protected by the Federal Confidentiality of Alcohol and Drug Abuse Patient Records regulations: The Federal rules restrict any use of the information to criminally investigate or prosecute any alcohol or drug abuse patient.[facility] Reason for Visit (unrecogniz ed section and content) Reason Comments 10-01-2021 Colon [facility] Specialty Diagnoses / Procedures Referred By Sidney t Referred To Contact General Surgery / [facility] Diagnoses Encounter for screening for malignant neoplasm of colon Family history of colon cancer [Z80.0] Personal history of colonic polyps [Z86.010] Change in bowel habits [R19.4] Procedures COLONOSCOPY FLX DX W/COLLJ SPEC WHEN PFRMD COLONOSCOPY SCREENING Karen Casas MD [address] [place] [address] Karen Casas MD [address] [place] [address] Referral ID Status Reason Start Date Expiration Date Visits Re quested Visits Authorized [id number] Closed 12/10/2021 01/09/2022 1 1 Reason Comments Follow Up colonoscopy Reason Comments 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 This clinical summary was aggregated from multiple sources. Caution should be exercised in using it in the provision of clinical care. This summary normalizes information from multiple sources, and as a consequence, information in this document may materially change the coding, format and clinical context of patient data. In addition, data may be omitted in some cases. CLINICAL DECISIONS SHOULD BE BASED ON THE PRIMARY CLINICAL RECORDS. [facility]. provides no warranty or guarantee of the accuracy or completeness of information in this document.
== END | disposition home or self-care (01) ==
LOC: US 08:57
PROVIDERS: PCP Family Medicine Geriatric Medicine; Referring Provider Family Medicine Geriatric Medicine; Visit Provider Family Medicine Geriatric Medicine
DX: R16.0 Hepatomegaly, not elsewhere classified (principal)
CPT/HCPCS: 76705; 76981

== ENCOUNTER → 2024-09-28 | Outpatient (CLI) | payer MEDICARE, SELFPAY ==
[2020-08-02 07:29] VITALS: BMI 27.9
[2024-09-28 14:52] LABS: Absolute Lymphocyte Count 5.88 X10^3/uL (0.83-4.51); Absolute Neutrophil Count 4.8 X10^3/uL (2.0-7.7); Basophil# 0.06 X10^3/uL; Basophil% 0.5 % (0-1); Eosinophils% 0.9 % (0-5); Hematocrit 44.1 % (40-54); Hemoglobin 14.6 g/dL (13.0-16.5); Lymphocyte # 5.88 X10^3/ul (0.83-4.51); Lymphocyte % 50.6 % (19-41); Mean Corp Hgb Conc 33.1 g/dL (32-36); Mean Corpuscular Hgb 28.6 pg (27.0-32.0); Mean Corpuscular Volume 86.5 fL (80-94); Mean Platelet Vol. 10.7 fl (6.2-12.0); Monocyte# 0.78 X10^3/uL; Monocyte% 6.7 % (0-10); NRBC Flagged by Analyzer 0 % (0-5); Neutrophil # 4.77 X10^3/uL (2.7-7.7); Neutrophil % 41.1 % (47-70); POSITIVE DIFFERENTIAL YES; POSITIVE MORPHOLOGY YES; Platelet Count 175 K/mm3 (150-450); RBC Distribution Width CV 13.6 % (11.6-14.6); RBC Distribution Width SD 42.6 fl (35.1-43.9); White Blood Count 11.6 K/mm3 (4.4-11.0)
[2024-09-28 14:56] LABS: Differential Indicated SCAN CRITERIA MET
[2024-09-28 15:37] LABS: ALB/GLOB Ratio 1.5 RATIO (0.9-2.4); AST(SGOT) 19 U/L (<=37); Alanine Aminotransfer ALT/SGPT 12 U/L (<=46); Albumin, Serum 4.6 g/dL (3.4-4.8); Alkaline Phosphatase 82 U/L (40-129); Anion Gap 13 (5-15); BUN 28 mg/dL (4-19); BUN/Creat Ratio 19.8 RATIO (10-20); Calcium,Total 9.5 mg/dL (7.6-11.0); Carbon Dioxide 22.6 mmol/L (21.0-32.0); Chloride 104 mmol/L (98-108); Cholesterol 195 mg/dL (<=200); Creatinine, Serum 1.42 mg/dL (0.70-1.20); EST Glomerular Filtration Rate 48 (>60); Globulin 3.1 g/dL (2.2-4.2); Glucose 91 mg/dL (70-99); High Density Lipoprotein 55 mg/dL; Low Density Lipoprotein Calc. 97 mg/dL; Potassium 4.2 mmol/L (3.3-5.1); Protein, Total 7.6 g/dL (5.9-8.4); Sodium Level 139 mmol/L (133-145); Total Bilirubin 0.47 mg/dL (0.00-1.30); Triglycerides 212 mg/dL; Very Low Density Lipoprotein 42 mg/dL (5-40); cholesterol:hdl ratio screen 3.52
[2024-09-28 15:38] LABS: Vitamin D,25 Hydroxy 49.1 ng/mL (30-100)
[2024-09-28 17:16] LABS: Platelet Estimate ADEQUATE (ADEQ)
== END | disposition home or self-care (01) ==
LOC: LAB 13:38
PROVIDERS: PCP Family Medicine Geriatric Medicine; Referring Provider Family Medicine Geriatric Medicine; Visit Provider Family Medicine Geriatric Medicine
DX: E78.5 Hyperlipidemia, unspecified (principal); E55.9 Vitamin D deficiency, unspecified; I10 Essential (primary) hypertension
CPT/HCPCS: 36415; 80053; 80061; 82306; 84443; 85025

== ENCOUNTER → 2024-11-02 | Outpatient (CLI) | payer MEDICARE, SELFPAY ==
[2020-08-02 07:29] VITALS: BMI 27.9
--- NOTE | 2024-11-02 07:10 | ECHOD_ITS ---
Reason For Study Reason For Study: CHEST PAIN Procedure This was a 2D Doppler, Color Flow transthoracic echocardiogram. Exam performed in department. Left Ventricle Normal LV size. Moderate concentric left ventricular hypertrophy. The LV systolic function is normal. EF is 65 %. Stage 1 diastolic dysfunction. Right Ventricle Normal right ventricle. Atria The left atrium is severely enlarged. Normal right atrium. Mitral Valve Mild mitral annular calcification. Mild-Moderate (1-2+) mitral valve insufficiency. Tricuspid Valve Trivial tricuspid valve insufficiency. Normal pulmonary artery pressure. Aortic Valve Trisinus/trileaflet aortic valve. Mild diffuse aortic valve thickening. Pulmonic Valve The pulmonic valve is not well visualized. Trivial pulmonic valve insufficiency. Great Vessels Normal sized aortic root. Pericardium/Pleural No pericardial effusion. MMode/2D Measurements & Calculations LVIDd: 4.9 cm IVSd: 1.5 cm Ao root diam: 2.9 cm LVIDs: 3.2 cm LVPWd: 1.3 cm LA dimension: 5.2 cm RVDd: 2.9 cm FS: 34.9 % LAV(MOD-bp): 72.4 ml LVAd ap4: 21.1 cm2 LVAd ap2: 23.7 cm2 LAV(MOD-bp) Indexed: 35.6 ml/m2 LVLd ap4: 6.6 cm LVLd ap2: 7.1 cm LAV(MOD-sp2): 71.2 ml EDV(MOD-sp4): 56.6 ml EDV(MOD-sp2): 69.9 ml LAV(MOD-sp4): 72.8 ml EDV(sp4-el): 57.6 ml EDV(sp2-el): 67.3 ml LVAs ap4: 11.0 cm2 LVAs ap2: 11.5 cm2 LVLs ap4: 5.3 cm LVLs ap2: 5.8 cm ESV(MOD-sp4): 20.5 ml ESV(MOD-sp2): 21.1 ml ESV(sp4-el): 19.3 ml ESV(sp2-el): 19.4 ml EF(MOD-sp4): 63.7 % EF(MOD-sp2): 69.9 % EF(sp4-el): 66.5 % SV(MOD-sp4): 36.1 ml SV(MOD-sp2): 48.8 ml SV(sp4-el): 38.3 ml SI(MOD-sp4): 17.7 ml/m2 SI(MOD-sp2): 24.0 ml/m2 LA A4 area: 22.1 cm2 LA dimension(2D): 4.9 cm TAPSE: 1.8 cm Time Measurements MV dec time: 0.23 sec Doppler Measurements & Calculations MV E max andrés: 65.2 cm/sec Lat Peak E' Andrés: 10.1 cm/sec Med Peak E' Andrés: 7.9 cm/sec MV A max andrés: 78.2 cm/sec E/E' lat: 6.5 E/E' med: 8.3 MV E/A: 0.83 MV V2 max: 98.4 cm/sec MV P1/2t max andrés: 72.0 cm/sec Ao V2 max: 131.4 cm/sec MV max P.9 mmHg MV P1/2t: 61.8 msec Ao max P.9 mmHg MV V2 mean: 46.3 cm/sec Ao V2 mean: 85.2 cm/sec MV mean P.0 mmHg MV dec slope: 341.4 cm/sec2 Ao mean P.3 mmHg MV V2 VTI: 27.0 cm MVA(P1/2t): 3.6 cm2 Ao V2 VTI: 28.3 cm AV (velocity ratio): 0.76 LV V1 max: 82.4 cm/sec MR max andrés: 557.1 cm/sec PA V2 max: 118.7 cm/sec LV V1 max P.7 mmHg MR max P.2 mmHg PA V2 mean: 73.3 cm/sec LV V1 mean P.5 mmHg MR mean andrés: 445.5 cm/sec LV V1 mean: 59.5 cm/sec MR mean P.1 mmHg LV V1 VTI: 21.5 cm MR VTI: 181.0 cm TR max andrés: 256.1 cm/sec TR max P.2 mmHg ECHO/Echo Complete Interpretation Summary Moderate concentric left ventricular hypertrophy. The LV systolic function is normal. EF is 65 %. Stage 1 diastolic dysfunction. The left atrium is severely enlarged. Mild mitral annular calcification. Mild-Moderate (1-2+) mitral valve insufficiency. Large hepatic cyst measuring 12 x 12 cm noted. Recommend hepatic ultrasound for further evaluation. Ordering Physician: Omid Gonzales Referring Physician: Ruben Sim Chi Performed By: Charisma Carballo, RDCS, RVT
--- NOTE | 2024-11-03 12:26 | STRESSREP ---
Stress Test Report Date: 11/02/2024 Procedure: Pharmacologic stress nuclear imaging study Indications: CAD Consent: Per the patient Procedure: The patient underwent pharmacologic (Regadenoson 0.4mg ) evaluation with a peak heart rate of 75 beats per minute (55%predicted maximal heart rate) and a peak blood pressure of 138/72 mmHg. The baseline ECG demonstrated sinus rhythm. The peak pharmacologic ECG failed to show any ischemic changes. There were no cardiac dysrhythmias pretest, during pharmacologic infusion, or recovery. There was no complaint of chest discomfort during pharmacologic infusion or recovery. The patient was injected with 11.1 millicuries of technetium 99m Cardiolite and subsequently rest SPECT Cardiolite nuclear imaging was obtained in the horizontal long, vertical long, and short axis views. The patient underwent pharmacologic (Regadenoson) evaluation. The patient was injected with 33.8 millicuries of technetium 99m Cardiolite and subsequently stress SPECT Cardiolite nuclear imaging was obtained in the horizontal long, vertical long, and short axis views. A gated Cardiolite study at peak stress was obtained. The examination was stopped secondary to completion of protocol. Rest and stress SPECT Cardiolite nuclear imaging status post realignment, normalization, and attenuation correction demonstrate no fixed or reversible perfusion defects. There is end systolic thickening and brightening. The gated Cardiolite study demonstrates myocardial thickening and inward wall motion. The reported LVEF is 59%. Impression: 1. Pharmacologic (Regadenoson) evaluation 2. Peak pharmacologic ECG with no ischemic changes. 3. There were no cardiac dysrhythmias pretest, during pharmacologic infusion, or recovery. 5. Rest and stress SPECT Cardiolite nuclear imaging demonstrate relative uniform tracer uptake and myocardial perfusion appearing within normal limits. 6. The gated Cardiolite study reports an LVEF of 59%. This note was generated with [employer] software. It may contain incorrect words, spelling, and punctuation that were not noted in checking the note before signing.
== END | disposition home or self-care (01) ==
LOC: CVS 07:10
PROVIDERS: PCP Family Medicine Geriatric Medicine; Referring Provider Internal Medicine Cardiovascular Disease; Visit Provider Internal Medicine Cardiovascular Disease
DX: R07.9 Chest pain, unspecified (principal); I25.10 Atherosclerotic heart disease of native coronary artery without angina pectoris; R06.00 Dyspnea, unspecified
CPT/HCPCS: 78452; 93017; 93306; A9500; A4216; J2785

== ENCOUNTER → 2025-01-23 | Outpatient (CLI) | payer MEDICARE, SELFPAY ==
[2020-08-02 07:29] VITALS: BMI 27.9
[2025-01-23 15:22] LABS: PSA,Total- Diagnostic 7.42 ng/mL (0.00-4.00)
== END | disposition home or self-care (01) ==
LOC: LAB 13:25
PROVIDERS: PCP Family Medicine Geriatric Medicine; Referring Provider Nurse Practitioner; Visit Provider Nurse Practitioner
DX: R97.20 Elevated prostate specific antigen [PSA] (principal)
CPT/HCPCS: 36415; 84153

== ENCOUNTER → 2025-03-28 | Outpatient (CLI) | payer MEDICARE, SELFPAY ==
[2020-08-02 07:29] VITALS: BMI 27.9
[2025-03-28 14:10] LABS: Hematocrit 45.4 % (40-54); Hemoglobin 14.7 g/dL (13.0-16.5); Immature Granulocytes Count 0.030 X10^3/uL (0.0-0.0); Mean Corp Hgb Conc 32.4 g/dL (32-36); Mean Corpuscular Volume 88.5 fL (80-94); Mean Platelet Vol. 11.2 fl (6.2-12.0); NRBC Flagged by Analyzer 0 % (0-5); POSITIVE DIFFERENTIAL YES; POSITIVE MORPHOLOGY YES; Platelet Count 175 K/mm3 (150-450); RBC Distribution Width CV 13.8 % (11.6-14.6); RBC Distribution Width SD 44.7 fl (35.1-43.9); Red Blood Count 5.13 M/mm3 (4.6-6.2); White Blood Count 12.6 K/mm3 (4.4-11.0)
[2025-03-28 14:14] LABS: Differential Indicated SCAN CRITERIA MET
[2025-03-28 15:12] LABS: Cholesterol 191 mg/dL (<=200); Low Density Lipoprotein Calc. 95 mg/dL; Triglycerides 207 mg/dL; Very Low Density Lipoprotein 41 mg/dL (5-40); Vitamin D,25 Hydroxy 70.0 ng/mL (30-100); cholesterol:hdl ratio screen 3.47
[2025-03-28 15:35] LABS: AST(SGOT) 21 U/L (<=37); Alanine Aminotransfer ALT/SGPT 11 U/L (<=46); Albumin, Serum 4.4 g/dL (3.4-4.8); Alkaline Phosphatase 94 U/L (40-129); Anion Gap 12 (5-15); BUN 28 mg/dL (4-19); BUN/Creat Ratio 20.0 RATIO (10-20); Calcium,Total 9.5 mg/dL (7.6-11.0); Carbon Dioxide 24.4 mmol/L (21.0-32.0); Chloride 107 mmol/L (98-108); Globulin 2.9 g/dL (2.2-4.2); Glucose 82 mg/dL (70-99); Potassium 4.4 mmol/L (3.3-5.1)
[2025-03-28 21:07] LABS: Xtra Tube Kwok EXTRA TUBE
== END | disposition home or self-care (01) ==
LOC: POLAB3 13:07
PROVIDERS: PCP Family Medicine Geriatric Medicine; Visit Provider Family Medicine Geriatric Medicine
DX: E78.5 Hyperlipidemia, unspecified (principal); I10 Essential (primary) hypertension; E03.9 Hypothyroidism, unspecified; E55.9 Vitamin D deficiency, unspecified
CPT/HCPCS: 36415; 80053; 80061; 82306; 84443; 85025

== ENCOUNTER → 2025-04-10 | Outpatient (CLI) | payer MEDICARE, SELFPAY ==
[2020-08-02 07:29] VITALS: BMI 27.9
== END | disposition home or self-care (01) ==
LOC: PSN 12:17
PROVIDERS: PCP Family Medicine Geriatric Medicine; Referring Provider Family Medicine Geriatric Medicine; Visit Provider Family Medicine Geriatric Medicine
DX: R07.9 Chest pain, unspecified (principal)
CPT/HCPCS: 94060

== ENCOUNTER → 2025-04-27 | Outpatient (CLI) | payer MEDICARE, SELFPAY ==
[2020-08-02 07:29] VITALS: BMI 27.9
--- NOTE | 2025-04-27 08:57 | AAVD_ITS ---
Reason For Study Reason For Study: HX AAA Aorta Measurements Aorta Doppler Measurements Proximal aorta measures2.05 x 2.01cm. in cross-sectional Peak systolic flow velocities within the proximal aorta axis. measure 74.7 cm/sec. Proximal aorta measures2.11cm. in longitudinal axis. Peak systolic flow velocities within the mid aorta measure Mid aorta measures2.71 x 2.48cm. in cross-sectional axis. 46.1 cm/sec. Mid aorta measures2.36cm. in longitudinal axis. Peak systolic flow velocities within the distal aorta Distal aorta measures3.13 x 3.01cm. in cross-sectional axis.measure 61.4 cm/sec. Distal aorta measures3.01cm. in longitudinal axis. Left Iliac Artery Left iliac artery measures 1.14 x 1.24 cm. in the cross-sectional axis. Left iliac artery measures 1.19 cm. in the longitudinal axis. Peak systolic velocity in the left iliac artery measures 116.3 cm/sec. Right Iliac Artery Right iliac artery measures 1.21 x 1.20 cm. in the cross-sectional axis. Right iliac artery measures 1.19 cm. in the longitudinal axis. Peak systolic velocity in the right iliac artery measures 89.3 cm/sec. Procedure Aorta IVC Iliac vasculature or bypass grafts 64612. The exam was diagnostic. Exam performed in department. 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 Ordering Physician: Prieto Peterson Referring Physician: Ruben Sim Chi Performed By: Armin Chang, RVT
== END | disposition home or self-care (01) ==
LOC: CVS 08:56
PROVIDERS: PCP Family Medicine Geriatric Medicine; Referring Provider Student in an Organized Health Care Education/Training Program; Visit Provider Student in an Organized Health Care Education/Training Program
DX: I10 Essential (primary) hypertension (principal); I71.40 Abdominal aortic aneurysm, without rupture, unspecified
CPT/HCPCS: 93978